=== PATIENT | female | born 1955 | race Caucasian/White ===

== ENCOUNTER 2018-12-27 18:33 | Inpatient (IN) | payer MEDICARE, SELFPAY ==
[2018-12-27] VITALS (16 sets, daily range): BP systolic 140–190; BP diastolic 87–122; PULSE 87–122; RESP 16–26; TEMP 36.4–36.8; O2SAT 95–98; BMI 44.6; BMI 44.2; BMI 44.7
--- NOTE | 2018-12-27 19:06 | EKG12_ITS ---
Test Reason : REPEAT Blood Pressure : / mmHG Vent. Rate : 093 BPM Atrial Rate : 093 BPM P-R Int : 208 ms QRS Dur : 084 ms QT Int : 358 ms P-R-T Axes : 065 060 022 degrees QTc Int : 445 ms Normal sinus rhythm Nonspecific ST and T wave abnormality Abnormal ECG Confirmed by MICAH DAVIS, MARIAN ([id number]), editor in chief ARNOLD MILNER ([id number]) on 12/29/2018 1:32:33 PM Referred By: TL Confirmed By:MARIAN OBRIEN MD
--- NOTE | 2018-12-27 19:08 | ED.VISSUMM ---
- ER Visit Summary Date of Service: 12/27/18 Chief Complaint: Chest pain History of Present Illness: The patient is a 63 F chest heaviness 1.5 hours prior to arrival, [facility]. Some tingling left hand. Dyspnea. No nausea or diaphoresis. On and off palpitations throughout the day. No lightheaded symptoms. No cardiac history. No history of dysrhythmias. Stress test at least 2-3 years ago. History of hypertension, diabetes, hypercholesterolemia. Denies family history of MIs at a young age. Denies tobacco history. No history of cardiac cath. No aspirin taken. Physical Examination: General: Alert and oriented ?3, no acute distress HEENT: Normocephalic, atraumatic. Moist mucosa membranes Neck: supple, nontender. Cardiovascular: Regular tachycardic rate and rhythm, no murmurs Respiratory: Normal breath sounds, symmetric, no distress Abdomen: Soft, nontender, nondistended Extremities: Nontender, no edema, pulses intact ?4 Neuro: no focal neurological deficits. Test Results: EKG: Concerns for a flutter 2-1 versus first-degree AV block sinus tachycardia, rate of 130, T wave inversion in inferior leads. No ST changes. Old EKG August 2009, notes first-degree AV block, sinus rhythm, there were no T wave changes at that time. Repeat EKG sinus first-degree AV block rate of 93, T wave inversion in inferior leads, no ST changes. Hemoglobin 14, creatinine 1.01. INR 1 PTT 24. Troponins 0.20. Emergency Department Course and Treatment: Patient initial EKG concerns for 2-1 A. fib versus first-degree AV block at a rate of 130 there is new T wave inversion in inferior leads. Initially given Lopressor to evaluate heart rate, recheck heart rates in the 80s however repeat EKG notes first-degree AV block. Cardiac workup did no bump in troponin 0.2. Reevaluation after aspirin her heart rate improved however chest heaviness continued she is given nitro series. Reevaluation reported that symptoms was improving however returned. Nitro drip was started. Chest x-ray negative. Discussed with coffee maker Dr. Díaz updated patient presentation and findings and concerns. Requested 180 Brilinta loading dose along with heparin drip. She would need to be on Brilinta 90 mg twice daily. Should be kept n.p.o. She will be monitored for any worsening symptoms for potentially a more urgent cath versus being cath in the morning. I discussed with hospitalist Dr. Bee, updated on plan of care. She will be admitted to PCU. Blood pressure stable. Treatment Plan: [] Disposition: Admission Impression: 1. Angina 2. Chest pains concerns for ACS This note was generated with [employer] dictation software. It may contain incorrect words, spelling, and punctuation that were not noted in review of the chart prior to signing ED Disposition - Plan for ED Patient: Disposition: Acute Care Hospital [facility] Diagnosis: Angina , Chest pain Referrals: Nena Calvillo MD [Primary Care Provider] -
[2018-12-27] MEDS: Aspirin 81 MG TAB.CHEW 324 MG PO (19:14)
[2018-12-27] MEDS: Metoprolol Tartrate 5 MG/5 ML Vial IV ×3 (19:15→19:35)
[2018-12-27 19:19] LABS: Absolute Lymphocyte Count 2.13 X10^3/ul (0.83-4.51); Absolute Neutrophil Count 4.3 X10^3/uL (2.0-7.7); Basophil# 0.03 X10^3/uL; Basophil% 0.4 % (0-1); Eosinophil# 0.15 X10^3/uL; Eosinophils% 2.1 % (0-5); Hematocrit 41.6 % (37-47); Lymphocyte # 2.13 X10^3/ul (4.0); Lymphocyte % 29.9 % (19-41); Mean Corp Hgb Conc 33.7 g/gl (32-36); Mean Corpuscular Hgb 29.5 pg (27.0-32.0); Mean Corpuscular Volume 87.6 fL (81-99); Mean Platelet Vol. 10.5 fl (6.2-12.0); Neutrophil # 4.31 X10^3/uL (2.7-7.7); Neutrophil % 60.5 % (47-70); Platelet Count 197 K/mm3 (150-450); RBC Distribution Width CV 14.1 % (11.6-14.6); RBC Distribution Width SD 44.8 fl (35.1-43.9); Red Blood Count 4.75 M/mm3 (4.2-5.4); White Blood Count 7.1 K/mm3 (4.4-11.0)
[2018-12-27 19:22] LABS: POSITIVE COUNT NO; POSITIVE DIFFERENTIAL NO; POSITIVE MORPHOLOGY NO
[2018-12-27 19:27] LABS: International Normalized Ratio 1.1; Prothrombin Time (Protime)PT. 13.6 SECONDS (11.7-14.9)
--- NOTE | 2018-12-27 19:27 | RAD_ITS ---
STUDY: X-RAY CHEST REASON FOR EXAM: Female, 63 years old. Chest pain with history of hypertension TECHNIQUE: Single AP portable view of the chest. COMPARISON: None. FINDINGS: The lungs are clear and expanded. There is no demonstrated pleural abnormality. There is mild cardiac enlargement. Normal mediastinum and caridad. Normal visualized pulmonary arteries. Normal visualized aortic arch and descending thoracic aorta. Normal visualized thoracic spine. Normal visualized ribs, clavicles, and shoulders. There is no demonstrated abnormality of the visualized soft tissue structures of the upper abdomen. RAD/Chest 1 View (Portable) IMPRESSION: Mild cardiomegaly. Remainder is within normal limits. Electronically Signed: Tino Deng DO at 19:49 EDT Tel , Service support ,
[2018-12-27 19:28] LABS: Partial Thromboplast Time 24.1 Seconds (24.1-36.2)
[2018-12-27 19:45] LABS: Anion Gap 6 (5-15); BUN 25 mg/dL (7-18); BUN/Creat Ratio 24.8 RATIO (10-20); Calcium,Total 8.9 mg/dL (8.5-10.1); Chloride 105 mmol/L (98-107); Creatinine, Serum 1.01 mg/dL (0.55-1.02); EST Glomerular Filtration Rate 59 mL/min (>60); Est Glom Filt Rate - Afr Amer 71 mL/min (>60); Estimated Creatinine Clearance 47.16 ml/min; Glucose 223 mg/dL (74-106); Potassium 4.5 mmol/L (3.5-5.1); Sodium Level 137 mmol/L (136-145)
--- NOTE | 2018-12-27 19:51 | EKG12_ITS ---
Test Reason : CP Blood Pressure : / mmHG Vent. Rate : 130 BPM Atrial Rate : 130 BPM P-R Int : 206 ms QRS Dur : 080 ms QT Int : 248 ms P-R-T Axes : 085 072 181 degrees QTc Int : [address] & T wave abnormality, consider inferior ischemia Abnormal ECG Confirmed by MICAH DAVIS, MARIAN ([id number]), editor managing newspaper ARNOLD MILNER ([id number]) on 12/29/2018 1:32:54 PM Referred By: MARCO Confirmed By:MARIAN OBRIEN MD
[2018-12-27] MEDS: Nitroglycerin Infusion 250 ML 24 MG CONT INF (20:50)
[2018-12-27] MEDS: TICAGRELOR 90 MG TABLET 180 MG PO (21:18)
[2018-12-27] MEDS: HEPARIN/D5w 25,000 UNITS 25,000 UNITS/250 ML IV.SOLN. 10 UNITS IV (21:19)
[2018-12-27] MEDS: Heparin Injection (Vial) 5,000 UNIT/ML VIAL 4000 UNIT IV (21:29)
--- NOTE | 2018-12-27 21:38 | PCM.HP.STD ---
Problem List (1) Tachycardia Status: Chronic (2) Depression Status: Chronic (3) Hyperlipidemia Status: Chronic (4) Type 2 diabetes mellitus Status: Chronic (5) Hypertension Status: Chronic (6) Chest pain Status: Acute History of Present Illness Date of Admission: 12/27/18 Chief Complaint: Shortness of breath, chest pain. The patient is a 63 year old F with past medical history as mentioned above presented to the emergency room because of shortness of breath and chest pain. Her symptoms started yesterday with progressively increasing shortness of breath, initially was with exertion and progressed to become even at rest, aggravated by minimal activity, not relieved with rest and today, started having chest pain. Around 2 PM today, she was sitting and she started having chest pain, retrosternal chest pain, 8 out of 10 in severity, initially was pressure-like pain and then became sharp pain, not radiating, associated with shortness of breath and palpitation and without aggravating or relieving factors. At this time, she is still complaining of chest pain slightly improved. In the emergency department, initially she was tachycardic and revealed probable first-degree AV block. She was given 1 dose of IV Lopressor and her heart rate slowed down around 80s. Her blood pressure was elevated, afebrile, pulse ox was normal on room air. Her initial EKG revealed tachycardia, nonspecific T wave changes on lateral chest leads. Repeat EKG revealed normal sinus rhythm, no acute ST elevation. Chest x-ray revealed cardiomegaly, no acute changes. Routine blood work was unremarkable. Troponin was 0.200. She was started on IV heparin drip and IV nitroglycerin drip, was given loading dose of Brilinta according to cardiology recommendations. She is being admitted for chest pain, probable angina pectoris for evaluation. Past Medical History Past Medical History (Chronic Problems): Chronic Problems Tachycardia (Chronic) Depression (Chronic) Hyperlipidemia (Chronic) Type 2 diabetes mellitus (Chronic) Hypertension (Chronic) Allergies Sulfa (Sulfonamide Antibiotics) Allergy (Verified 12/27/18 18:36) Hives Home Medications: Ambulatory Orders Medication Instructions Recorded Aspirin [Aspir 81] 81 mg PO DAILY 12/27/18 Atenolol 50 mg PO DAILY 12/27/18 Buspirone HCl 10 mg PO BID 12/27/18 Fluoxetine HCl 40 mg PO DAILY 12/27/18 Glimepiride [Amaryl] 2 mg PO BID 12/27/18 Hydrochlorothiazide [Hctz] 25 mg PO DAILY 12/27/18 Insulin Glargine,Hum.rec.anlog 18 - 23 unit SC QHS 12/27/18 [Lantus] Lisinopril 5 mg PO DAILY 12/27/18 Metformin HCl 500 mg PO TID 12/27/18 Naproxen [Naprosyn] 500 mg PO BID 12/27/18 Pravastatin [Pravachol] 40 mg PO QHS 12/27/18 Propranolol HCl 20 - 40 mg PO TID PRN PRN 12/27/18 traZODone [Desyrel] 100 mg PO QHS 12/27/18 Surgical History: cholecystectomy Psychiatric History: Depression 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 Denies: Anorexia, Chills, Fever Eyes: Denies: Blurred vision, Double vision, Drainage HEENT: Denies: Difficulty Hearing, Ear Pain, Eye Pain, Nasal Congestion, Sore Throat Cardiovascular: Reports: Chest Pain, Chest Pressure, Palpitations. Denies: Heaviness, Light Headedness, Syncope Respiratory: Reports: Shortness of Breath, Shortness of breath at rest, Shortness of breath upon exertion. Denies: Cough, Pleuritic Pain, Sputum production, Wheezing Gastrointestinal: Reports: Nausea. Denies: Abdominal Pain, Constipation, Diarrhea, Vomiting Genitourinary: Denies: Dysuria, Frequency, Hematuria Musculoskeletal: Denies: Arm Pain, Back Pain Skin: Denies: Dryness, Rash Neurological: Denies: Balance problems, Double vision, Change in Speech, Slurred speech, Confusion, Headaches, Incoordination, Numbness Psychiatric: Reports: Depression. Denies: Anxiety VTE Information - Inpt Only VTE Present on Admission: No VTE Mechan Device Prophylaxis: None VTE Pharm Prophylaxis ordered?: No Patient Problems: Active and Suspected Problems Chest pain (Acute) - Physical Exam General: Alert, Oriented x3, Cooperative, No apparent distress HEENT: Atraumatic, PERRLA, EOMI, Normocephalic Oral: Moist Mucosa, No Gingival or Mucosal Lesions/ Ulcerations Neck: Supple, No JVD, Negative Carotid Bruits, Trachea Midline, Thyroid Normal Size and Texture Lungs: Clear to auscultation, No rhonchi, No wheeze, No rales, Diminished Cardiovascular: Regular rate, Regular Rhythm, Normal S1, Normal S2, PMI Normal, Murmur - Systolic murmur., Tachycardic Abdomen: Bowel Sounds Present, Soft, Non Tender, Non-Distended, No Hepato-splenomegaly, Obese Extremities: No clubbing, No cyanosis, No edema Skin: No rashes, No breakdown Lymphatic: No Cervical, Supraclavicular, or Inguinal Adenopathy Neurological: Cranial nerves II-XII grossly intact, Motor Exam 5/5 strength throughout Psych/Mental Status: Normal Affect, Appropriate, Alert and oriented to time, place, person, mood and affect Vital Signs Temp Pulse Resp BP Pulse Ox 97.5 F L 108 H 16 171/122 H 98 12/27/18 18:33 12/27/18 21:25 12/27/18 21:25 12/27/18 21:25 12/27/18 21:25 Oxygen Flow Rate (L/min) 2 Oxygen Delivery Method Nasal Cannula Weight: 252 lb 3.341 oz Body Mass Index (BMI) 44.6 Laboratory Tests Past 24 Hrs 12/27/18 12/27/18 12/27/18 19:10 19:10 19:10 WBC 7.1 RBC 4.75 Hgb 14.0 Hct 41.6 MCV 87.6 MCH 29.5 MCHC 33.7 RDW 14.1 RDW Differential 44.8 H Plt Count 197 MPV 10.5 Immature Gran % (Auto) 0.100 Neut % (Auto) 60.5 Lymph % (Auto) 29.9 [place] % (Auto) 7.0 Eos % (Auto) 2.1 Baso % (Auto) 0.4 Absolute Neuts (auto) 4.3 Absolute Lymphs (auto) 2.13 Total Counted Not Reportable PT 13.6 INR 1.1 APTT 24.1 Sodium 137 Potassium 4.5 Chloride 105 Carbon Dioxide 26.0 Anion Gap 6 BUN 25 H Creatinine 1.01 Estim Creat Clear Calc 47.16 Est GFR (MDRD) Af Amer 71 Est GFR (MDRD) Non-Af 59 L BUN/Creatinine Ratio 24.8 H Glucose 223 H Calcium 8.9 Troponin I 0.200 H Clinical Impression(s) from Imaging Studies Chest X-Ray 12/27/18 19:27 IMPRESSION: Mild cardiomegaly. Remainder is within normal limits. Electronically Signed: Tino Deng at 19:49 EDT Tel , Service support , Assessment/Plan All Active Problems Chest pain (Acute) This is a 63 years old female patient presented to the emergency room because of shortness of breath and chest pain, found to have abnormal cardiac enzymes and she is being admitted for evaluation and treatment. #1 chest pain/probable unstable angina/abnormal cardiac enzymes: EKG reviewed. Initial EKG revealed nonspecific T wave changes on lateral chest leads, revealed questionable first-degree AV block. She was tachycardic, given 1 dose of IV Lopressor. Repeat EKG revealed sinus rhythm and no acute ischemic changes. First troponin is 0.200. Patient has complained of chest pain, started on IV heparin drip and IV nitroglycerin drip. She received loading dose of Brilinta in the ED as well. Blood pressure slightly elevated. Plan: Admit to PCU, cardiac monitoring, serial cardiac enzymes, repeat EKG tomorrow morning, 2D echocardiogram, continue IV heparin drip and IV medication drip, cardiology consult, continue aspirin, start Brilinta twice daily tomorrow, continue atenolol and lisinopril as well as statins, repeat CBC and BMP tomorrow morning, IV fluids, IV morphine as needed, IV antiemetics, PT OT evaluation and treatment. #2 questionable cardiac arrhythmia: Patient mentioned that she had a history of tachycardia and palpitation, has been on propanolol. EKG reviewed as above. She mentioned that her PCP recommended stress test as outpatient which should be done in January. Plan: 2D echocardiogram, repeat EKG tomorrow morning, TSH. #3 type 2 diabetes mellitus: ADA diet, Accu-Cheks, insulin sliding scale, continue home doses of Lantus, continue glimepiride, hold metformin. #4 hypertension: Blood pressure is elevated, continue IV heparin drip, continue atenolol and lisinopril, hold HCTZ. #5 depression: Continue trazodone. #6 hyperlipidemia: Continue statins. #7 DVT prophylaxis: She is on IV heparin drip. This note was generated with [employer] dictation software. It may contain incorrect words, spelling, and punctuation that were not noted in checking the note before signing. Code Visit Inpatient E&M: 74790 Init Hosp L3
--- NOTE | 2018-12-27 21:42 | HP.PCM_ITS ---
Problem List (1) Tachycardia Status: Chronic (2) Depression Status: Chronic (3) Hyperlipidemia Status: Chronic (4) Type 2 diabetes mellitus Status: Chronic (5) Hypertension Status: Chronic (6) Chest pain Status: Acute History of Present Illness Date of Admission: 12/27/18 Chief Complaint: Shortness of breath, chest pain. The patient is a 63 year old F with past medical history as mentioned above presented to the emergency room because of shortness of breath and chest pain. Her symptoms started yesterday with progressively increasing shortness of breath, initially was with exertion and progressed to become even at rest, aggravated by minimal activity, not relieved with rest and today, started having chest pain. Around 2 PM today, she was sitting and she started having chest pain, retrosternal chest pain, 8 out of 10 in severity, initially was pressure- like pain and then became sharp pain, not radiating, associated with shortness of breath and palpitation and without aggravating or relieving factors. At this time, she is still complaining of chest pain slightly improved. In the emergency department, initially she was tachycardic and revealed probable first- degree AV block. She was given 1 dose of IV Lopressor and her heart rate slowed down around 80s. Her blood pressure was elevated, afebrile, pulse ox was normal on room air. Her initial EKG revealed tachycardia, nonspecific T wave changes on lateral chest leads. Repeat EKG revealed normal sinus rhythm, no acute ST elevation. Chest x-ray revealed cardiomegaly, no acute changes. Routine blood work was unremarkable. Troponin was 0.200. She was started on IV heparin drip and IV nitroglycerin drip, was given loading dose of Brilinta according to cardiology recommendations. She is being admitted for chest pain, probable angina pectoris for evaluation. Past Medical History Past Medical History (Chronic Problems): Chronic Problems Tachycardia (Chronic) Depression (Chronic) Hyperlipidemia (Chronic) Type 2 diabetes mellitus (Chronic) Hypertension (Chronic) Allergies Sulfa (Sulfonamide Antibiotics) Allergy (Verified 12/27/18 18:36) Hives Home Medications: Ambulatory Orders Medication Instructions Recorded Aspirin [Aspir 81] 81 mg PO DAILY 12/27/18 Atenolol 50 mg PO DAILY 12/27/18 Buspirone HCl 10 mg PO BID 12/27/18 Fluoxetine HCl 40 mg PO DAILY 12/27/18 Glimepiride [Amaryl] 2 mg PO BID 12/27/18 Hydrochlorothiazide [Hctz] 25 mg PO DAILY 12/27/18 Insulin Glargine,Hum.rec.anlog 18 - 23 unit SC QHS 12/27/18 [Lantus] Lisinopril 5 mg PO DAILY 12/27/18 Metformin HCl 500 mg PO TID 12/27/18 Naproxen [Naprosyn] 500 mg PO BID 12/27/18 Pravastatin [Pravachol] 40 mg PO QHS 12/27/18 Propranolol HCl 20 - 40 mg PO TID PRN PRN 12/27/18 traZODone [Desyrel] 100 mg PO QHS 12/27/18 Surgical History: cholecystectomy Psychiatric History: Depression 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 Denies: Anorexia, Chills, Fever Eyes: Denies: Blurred vision, Double vision, Drainage HEENT: Denies: Difficulty Hearing, Ear Pain, Eye Pain, Nasal Congestion, Sore Throat Cardiovascular: Reports: Chest Pain, Chest Pressure, Palpitations. Denies: Heaviness, Light Headedness, Syncope Respiratory: Reports: Shortness of Breath, Shortness of breath at rest, Shortness of breath upon exertion. Denies: Cough, Pleuritic Pain, Sputum production, Wheezing Gastrointestinal: Reports: Nausea. Denies: Abdominal Pain, Constipation, Diarrhea, Vomiting Genitourinary: Denies: Dysuria, Frequency, Hematuria Musculoskeletal: Denies: Arm Pain, Back Pain Skin: Denies: Dryness, Rash Neurological: Denies: Balance problems, Double vision, Change in Speech, Slurred speech, Confusion, Headaches, Incoordination, Numbness Psychiatric: Reports: Depression. Denies: Anxiety VTE Information - Inpt Only VTE Present on Admission: No VTE Mechan Device Prophylaxis: None VTE Pharm Prophylaxis ordered?: No Patient Problems: Active and Suspected Problems Chest pain (Acute) - Physical Exam General: Alert, Oriented x3, Cooperative, No apparent distress HEENT: Atraumatic, PERRLA, EOMI, Normocephalic Oral: Moist Mucosa, No Gingival or Mucosal Lesions/ Ulcerations Neck: Supple, No JVD, Negative Carotid Bruits, Trachea Midline, Thyroid Normal Size and Texture Lungs: Clear to auscultation, No rhonchi, No wheeze, No rales, Diminished Cardiovascular: Regular rate, Regular Rhythm, Normal S1, Normal S2, PMI Normal, Murmur - Systolic murmur., Tachycardic Abdomen: Bowel Sounds Present, Soft, Non Tender, Non-Distended, No Hepato- splenomegaly, Obese Extremities: No clubbing, No cyanosis, No edema Skin: No rashes, No breakdown Lymphatic: No Cervical, Supraclavicular, or Inguinal Adenopathy Neurological: Cranial nerves II-XII grossly intact, Motor Exam 5/5 strength throughout Psych/Mental Status: Normal Affect, Appropriate, Alert and oriented to time, place, person, mood and affect Vital Signs Temp Pulse Resp BP Pulse Ox 97.5 F L 108 H 16 171/122 H 98 12/27/18 18:33 12/27/18 21:25 12/27/18 21:25 12/27/18 21:25 12/27/18 21:25 Oxygen Flow Rate (L/min) 2 Oxygen Delivery Method Nasal Cannula Weight: 252 lb 3.341 oz Body Mass Index (BMI) 44.6 Laboratory Tests Past 24 Hrs 12/27/18 12/27/18 12/27/18 19:10 19:10 19:10 WBC 7.1 RBC 4.75 Hgb 14.0 Hct 41.6 MCV 87.6 MCH 29.5 MCHC 33.7 RDW 14.1 RDW Differential 44.8 H Plt Count 197 MPV 10.5 Immature Gran % (Auto) 0.100 Neut % (Auto) 60.5 Lymph % (Auto) 29.9 [place] % (Auto) 7.0 Eos % (Auto) 2.1 Baso % (Auto) 0.4 Absolute Neuts (auto) 4.3 Absolute Lymphs (auto) 2.13 Total Counted Not Reportable PT 13.6 INR 1.1 APTT 24.1 Sodium 137 Potassium 4.5 Chloride 105 Carbon Dioxide 26.0 Anion Gap 6 BUN 25 H Creatinine 1.01 Estim Creat Clear Calc 47.16 Est GFR (MDRD) Af Amer 71 Est GFR (MDRD) Non-Af 59 L BUN/Creatinine Ratio 24.8 H Glucose 223 H Calcium 8.9 Troponin I 0.200 H Clinical Impression(s) from Imaging Studies Chest X-Ray 12/27/18 19:27 IMPRESSION: Mild cardiomegaly. Remainder is within normal limits. Electronically Signed: Tino Deng at 19:49 EDT Tel , Service support , Assessment/Plan All Active Problems Chest pain (Acute) This is a 63 years old female patient presented to the emergency room because of shortness of breath and chest pain, found to have abnormal cardiac enzymes and she is being admitted for evaluation and treatment. #1 chest pain/probable unstable angina/abnormal cardiac enzymes: EKG reviewed. Initial EKG revealed nonspecific T wave changes on lateral chest leads, revealed questionable first-degree AV block. She was tachycardic, given 1 dose of IV Lopressor. Repeat EKG revealed sinus rhythm and no acute ischemic changes. First troponin is 0.200. Patient has complained of chest pain, started on IV heparin drip and IV nitroglycerin drip. She received loading dose of Brilinta in the ED as well. Blood pressure slightly elevated. Plan: Admit to PCU, cardiac monitoring, serial cardiac enzymes, repeat EKG tomorrow morning, 2D echocardiogram, continue IV heparin drip and IV medication drip, cardiology consult, continue aspirin, start Brilinta twice daily tomorrow, continue atenolol and lisinopril as well as statins, repeat CBC and BMP tomorrow morning, IV fluids, IV morphine as needed, IV antiemetics, PT OT evaluation and treatment. #2 questionable cardiac arrhythmia: Patient mentioned that she had a history of tachycardia and palpitation, has been on propanolol. EKG reviewed as above. She mentioned that her PCP recommended stress test as outpatient which should be done in January. Plan: 2D echocardiogram, repeat EKG tomorrow morning, TSH. #3 type 2 diabetes mellitus: ADA diet, Accu-Cheks, insulin sliding scale, continue home doses of Lantus, continue glimepiride, hold metformin. #4 hypertension: Blood pressure is elevated, continue IV heparin drip, continue atenolol and lisinopril, hold HCTZ. #5 depression: Continue trazodone. #6 hyperlipidemia: Continue statins. #7 DVT prophylaxis: She is on IV heparin drip. This note was generated with [employer] dictation software. It may contain incorrect words, spelling, and punctuation that were not noted in checking the note before signing. Code Visit Inpatient E&M: 96526 Init Hosp L3
[2018-12-27] MEDS: Morphine 4 MG/ML Syringe IV (22:01)
--- NOTE | 2018-12-27 22:30 | NURSING ---
Pt arrives to PCU, c/o 7/ chest pain. This RN informed by ED nurse JUANCARLOS Joel that pt is on 80mcg/hr of Nitro. JUANCARLOS Solis at bedside aware and calling Dr. Bee. Pt informed of Nitro drip maximum limit on unit and pt will need to be transferred to ICU. Pt verbalizing understanding.
--- NOTE | 2018-12-27 22:38 | EKG12_ITS ---
Test Reason : POST PCI Blood Pressure : / mmHG Vent. Rate : 091 BPM Atrial Rate : 091 BPM P-R Int : 212 ms QRS Dur : 088 ms QT Int : 410 ms P-R-T Axes : 058 073 023 degrees QTc Int : 504 ms Sinus rhythm with 1st degree A-V block Anterior infarct , age undetermined Abnormal ECG No previous ECGs available Confirmed by CRISTOBAL FAROOQ ([id number]), editorial director ARNOLD MILNER ([id number]) on 12/30/2018 11:00:06 AM Referred By: MICAH Confirmed By:CRISTOBAL FAROOQ
--- NOTE | 2018-12-27 22:59 | ECHOCS_ITS ---
Reason For Study: S/P RI Procedure This was a 2D Doppler, Color Flow transthoracic echocardiogram. The study was technically difficult. Contrast injection was performed. Exam performed portable in ICU/CCU. Left Ventricle Normal LV size. Segmental dysfunction with preserved ejection fraction (see wall motion). The estimated ejection fraction is 65 %. Diastolic function is indeterminate. Mid-anteroseptal : Mildly hypokinetic. Anterior [place] : Mildly hypokinetic. Right Ventricle Normal RV size. Normal systolic function. Atria The left atrium is mildly enlarged. Normal right atrium. No doppler evidence for ASD. Mitral Valve There is no mitral annular calcification. Normal mitral valve. Trivial mitral valve insufficiency. Tricuspid Valve Normal tricuspid valve. Trivial tricuspid valve insufficiency. Unable to estimate RV systolic pressure/pulmonary artery pressure due to technically difficult study. Aortic Valve Trisinus/trileaflet aortic valve. Mild focal aortic valve calcification. Pulmonic Valve The pulmonic valve is not well visualized. Great Vessels Normal sized aortic root. Pericardium/Pleural No pericardial effusion. Medication Diluted definity 3.0ml given slow IV push to enhance endocardial definition. MMode/2D Measurements & Calculations LVIDd: 4.3 cm IVSd: 1.3 cm Ao root diam: 2.8 cm LVIDs: 3.2 cm LVPWd: 1.1 cm RVDd: 3.7 cm FS: 25.4 % LAV(MOD-bp): 87.1 ml LA A4 area: 27.8 cm2 LA dimension(2D): 3.8 cm LAV(MOD-bp) Indexed: 40.9 ml/m2 LAV(MOD-sp2): 69.8 ml LAV(MOD-sp4): 99.6 ml RA A4 area: 25.6 cm2 Doppler Measurements & Calculations MV E max alexander: 59.0 cm/sec Lat Peak E' Alexander: 8.9 cm/sec Med Peak E' Alexander: 10.2 cm/sec MV A max alexander: 77.8 cm/sec E/E' lat: 6.6 E/E' med: 5.8 MV E/A: 0.76 Ao V2 max: 159.1 cm/sec LV V1 max: 82.3 cm/sec PA V2 max: 73.4 cm/sec Ao max P.1 mmHg LV V1 max P.7 mmHg Interpretation Summary The study was technically difficult. Contrast injection was performed. Segmental dysfunction with preserved ejection fraction (see wall motion). The estimated ejection fraction is 65 %. Trivial mitral valve insufficiency. Trivial tricuspid valve insufficiency. Mild focal aortic valve calcification. Unable to estimate RV systolic pressure/pulmonary artery pressure due to technically difficult study. Diastolic function is indeterminate. Ordering Physician: Genie Bee Referring Physician: Nena Calvillo Performed By: Sivan Chavis RDCS, RVT
[2018-12-27] MEDS: busPIRone 5 MG Tablet 10 MG PO (23:45)
[2018-12-27] MEDS: Glimepiride 2 MG Tablet PO (23:45)
[2018-12-27] MEDS: 0.9% Normal Saline 1,000 ML 75 ML IV (23:45)
[2018-12-27] MEDS: Pravastatin 40 MG Tablet PO (23:46)
[2018-12-27] MEDS: traZODone 100 MG Tablet PO (23:46)
[2018-12-27] MEDS: Insulin Lispro 100 UNIT/ML INSULN.PEN SC (23:56)
[2018-12-28] VITALS (34 sets, daily range): BP systolic 84–150; BP diastolic 46–112; PULSE 71–102; RESP 15–29; TEMP 36.4–37.2; O2SAT 90–98; BMI 44.2
[2018-12-28 00:26] LABS: Bedside Glucose 251 mg/dL (70-110)
[2018-12-28] MEDS: Morphine 2 MG/ML Syringe IV (00:46)
[2018-12-28] MEDS: 0.9% NaCl Peripheral Flush Adult/Peds IV ×3 (00:48→17:47)
[2018-12-28 00:52] LABS: Thyroid Stim Hormone (TSH) 2.45 uIU/mL (0.358-3.74)
--- NOTE | 2018-12-28 01:39 | PCM.CONS.C ---
Problem List (1) Unstable angina Status: Acute (2) NSTEMI (non-ST elevated myocardial infarction) Status: Acute (3) Hyperlipidemia Status: Chronic (4) Hypertension Status: Chronic (5) Type 2 diabetes mellitus Status: Chronic Reason for Consult Date of Consultation: 12/28/18 History of Present Illness: The patient is a 63 year old white female with a past medical history which is included hyperlipidemia, hypertension, and diabetes mellitus who presents for concerns of unstable angina pectoris and findings compatible with a non-ST segment elevation CA. The patient states that she has had a long-standing history of palpitations. She has been on beta-blockers for her palpitations. More recently she has noted progressive shortness of breath and dyspnea especially with exertion. Yesterday she noted not only palpitations and shortness of breath and dyspnea with exertion chest discomfort/chest pressure. She noted that she had a difficult time walking into the pharmacy to purchase aspirin. Thus she brought herself directly to the hospital for further evaluation and care. There she was evaluated by the emergency department staff. She was thought to have symptoms compatible with unstable angina pectoris. A troponin I level was performed and found to be 0.2. An ECG was performed that demonstrated sinus tachycardia with T wave abnormality concerning for myocardial ischemia in the inferior distribution. She was treated with a combination of medicines including aspirin, nitroglycerin sublingual series which initially improved her symptoms, beta-blockers, and then based upon concerns of recurrent chest discomfort was placed on IV nitroglycerin. She eventually received additional medical therapy with antiplatelet therapy with Brilinta as well as anticoagulant therapy with IV heparin. He was also reported as receiving IV morphine in the emergency department prior to her placement in the PCU. She was admitted by the hospitalist after the PCU. However based upon ongoing symptoms and need for increasing IV nitroglycerin she was subsequently transferred to the ICU for further evaluation. In the ICU she continued to have ongoing symptoms despite the aforementioned medical therapy. Additional cardiac enzymes were performed and her repeat troponin I level was 0.16. However a repeat ECG had been performed that had demonstrated sinus rhythm with nonspecific ST and T wave abnormality concerning for myocardial ischemia in the inferior distribution but also nonspecific ST and T wave abnormality in the anterolateral distribution. Another ECG was performed which demonstrated continued evidence of nonspecific ST and T wave abnormality not only in the inferior distribution but more so more prominent in the anterior lateral distribution. Another ECG was performed that demonstrated similar type findings. Raising concerns of myocardial ischemia in the inferior distribution as well as the anterior to anterior lateral distribution. Her nonspecific ST segment changes that were noted on repeat electrocardiograms inferiorly appeared to demonstrate approximately 0.[address] segment elevation inferiorly-not appearing to meet definitive criteria for an ST segment elevation CA. She was also subsequently noted to have compared to her original ECG loss of R wave in the precordial lead V3. The patient states that she had an exercise tolerance test performed some years ago which reportedly was negative as she never went to have further cardiac diagnostic studies performed. At the present time she continues with her chest discomfort which she feels as if there is a heavy pressure sensation or weight like sensation on her chest. She states she has had her shortness of breath and dyspnea. She has had nausea but no emesis. She was also apparently reported as appearing somewhat clammy or diaphoretic. There is been no loss of consciousness. She denies any history of orthopnea or PND. She has not had ongoing peripheral pitting edema of the lower extremities. She states she follows with her PCP every 3 months to have her lipids checked and her diabetes mellitus checked. [] Past Medical History Allergies/Adverse Reactions: Allergies Sulfa (Sulfonamide Antibiotics) Allergy (Verified 12/27/18 18:36) Hives Home Medications: Ambulatory Orders Medication Instructions Recorded Aspirin [Aspir 81] 81 mg PO DAILY 12/27/18 Atenolol 50 mg PO DAILY 12/27/18 Buspirone HCl 10 mg PO BID 12/27/18 Fluoxetine HCl 40 mg PO DAILY 12/27/18 Glimepiride [Amaryl] 2 mg PO BID 12/27/18 Hydrochlorothiazide [Hctz] 25 mg PO DAILY 12/27/18 Insulin Glargine,Hum.rec.anlog 18 - 23 unit SC QHS 12/27/18 [Lantus] Lisinopril 5 mg PO DAILY 12/27/18 Metformin HCl 500 mg PO TID 12/27/18 Naproxen [Naprosyn] 500 mg PO BID 12/27/18 Pravastatin [Pravachol] 40 mg PO QHS 12/27/18 Propranolol HCl 20 - 40 mg PO TID PRN PRN 12/27/18 traZODone [Desyrel] 100 mg PO QHS 12/27/18 Past Medical History (Chronic Problems): Chronic Problems Tachycardia (Chronic) Depression (Chronic) Hyperlipidemia (Chronic) Type 2 diabetes mellitus (Chronic) Hypertension (Chronic) Surgical History: cholecystectomy Psychiatric History: Depression [employer]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 Denies: Orthopnea, PND, Peripheral Edema, Lightheadedness, Dizziness, Near Syncope, Syncope Respiratory: Reports: Shortness of Breath. Denies: Cough, Sputum Production, Hemoptysis Gastrointestinal: Reports: Nausea. Denies: Hematemesis, Hematochezia, Melena Genitourinary: Denies: Dysuria, Hematuria Skin: Denies: Rash Subjectve: This is a 63-year-old white female who appears to be uncomfortable hearing at this time. Objective: Vital Signs Temp Pulse Resp BP Pulse Ox 98.3 F 102 H 19 H 118/63 96 12/27/18 23:00 12/28/18 00:15 12/28/18 00:15 12/28/18 00:45 12/28/18 00:15 Oxygen Flow Rate (L/min) 2 Oxygen Delivery Method Nasal Cannula Weight: 249 lb 12.54 oz Body Mass Index (BMI) 44.2 Intake and Output for Last 24 Hours 12/26/18 12/27/18 12/28/18 23:59 23:59 23:59 Intake Total 365 / 365 Balance 365 / 365 General: Awake, Alert, Oriented x 3, Cooperative, Obese HEENT: Atraumatic, Normocephalic, PERRL, EOMI, Sclera Non Icteric Oral: Moist Mucosa Neck: Supple, Good ROM, No JVD Lungs: Clear to auscultation Cardiovascular: Regular Rhythm, Normal S1, Normal S2 Vascular: No Carotid Bruits Abdomen: Bowel Sounds Present, Soft, Non Tender Extremities: No Cyanosis, No Clubbing, No edema Neurological: No Focal Motor or Sensory Deficit Psych/Mental Status: Appropriate 12/27/18 19:10: WBC 7.1, RBC 4.75, Hgb 14.0, Hct 41.6, MCV 87.6, MCH 29.5, MCHC 33.7, RDW 14.1, RDW Differential 44.8 H, Plt Count 197, MPV 10.5, Immature Gran % (Auto) 0.100, Neut % (Auto) 60.5, Lymph % (Auto) 29.9, [place]wey % (Auto) 7.0, Eos % (Auto) 2.1, Baso % (Auto) 0.4, Absolute Neuts (auto) 4.3, Total Counted Not Reportable 12/27/18 19:10: PT 13.6, INR 1.1, APTT 24.1 12/27/18 19:10: Sodium 137, Potassium 4.5, Chloride 105, Carbon Dioxide 26.0, Anion Gap 6, BUN 25 H, Creatinine 1.01, Est GFR (MDRD) Af Amer 71, Est GFR (MDRD) Non-Af 59 L, BUN/Creatinine Ratio 24.8 H, Glucose 223 H, Calcium 8.9, Troponin I 0.200 H 12/28/18 00:20: Troponin I 0.161 H Rhythm: Sinus rhythm EKG: As noted above Stress Test: Unavailable for review CXR: Preliminary evaluation: No acute cardiopulmonary disease process appreciated: Please see official report Assessment/Plan 1. Unstable angina pectoris/non-ST segment elevation CA The patient presents with symptoms concerning for unstable angina pectoris and subsequent findings with respect to indeterminate troponin I levels and ECG changes concerning for a non-ST segment elevation CA. At the present time the patient continues with symptoms. This is despite multiple medications and advancing doses of medications. Based upon the above it was felt the patient should proceed to the diagnostic cardiac catheterization laboratory for further evaluation of her underlying coronary disease status and the need for potential revascularization therapy. The procedure and risks were discussed with her. She was agreeable to this approach. 2. Hyperlipidemia She can have her lipids reassessed. She will need to continue medical therapy with her statins. 3. Hypertension Her blood pressures are being followed. Her medications can be adjusted as needed. 4. Diabetes mellitus She will need to continue under evaluation care by internal medicine. Comment: The above has been discussed and reviewed with the patient. This note was generated with [employer] software. It may contain incorrect words, spelling, and punctuation that were not noted in checking the note before signing.
[2018-12-28 02:18] LABS: AST(SGOT) 159 U/L (15-37); Alanine Aminotransfer ALT/SGPT 209 U/L (13-56); Albumin, Serum 3.2 g/dL (3.2-5.0); Alkaline Phosphatase 126 U/L (45-117); Bilirubin, Direct 0.19 mg/dL (0.00-0.30); Protein, Total 7.2 g/dL (6.4-8.2)
--- NOTE | 2018-12-28 03:57 | EKG12_ITS ---
Test Reason : CP ADMIT Blood Pressure : / mmHG Vent. Rate : 101 BPM Atrial Rate : 101 BPM P-R Int : 214 ms QRS Dur : 084 ms QT Int : 368 ms P-R-T Axes : 066 062 015 degrees QTc Int : 477 ms Sinus tachycardia with 1st degree A-V block Septal infarct , age undetermined T wave abnormality, consider inferior ischemia T wave abnormality, consider anterior ischemia Abnormal ECG No previous ECGs available Confirmed by CRISTOBAL FAROOQ ([id number]), health editor ARNOLD MILNER ([id number]) on 12/30/2018 11:18:51 AM Referred By: DR SANTO Confirmed By:CRISTOBAL FAROOQ
--- NOTE | 2018-12-28 04:07 | NURSING ---
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 Pt received 2 stents to LAD, right radial approach. Will return to ICU soon.
--- NOTE | 2018-12-28 04:08 | CL.I_ITS ---
Patient Name: ELISABET VAUGHAN Study Date: 12/28/2018 Performing: Francie Masterson MD Ht: 62.99 inches 160 cm : 1955 Wt: 249.12 lbs 113 kg Age: 63 Gender: female BSA: 2.12 PROCEDURE(S) PERFORMED [id number] W OR WO PTCA, SINGLE CORONARY ARTERY CLINICAL PROFILE AND CO-MORBIDITIES Indications: Worsening Angina, ACS <= 24 hrs Heart Failure: None Stress/Imaging Stress/Image Study Performed: No Angina Classification Anginal Classification w/in 2 Weeks: CCS IV CAD Presentations: Unstable angina. Non-STEMI. CONCLUSIONS RECOMMENDATIONS ASA Indefinitley Brilinta for at least 12 months Routine post interventional care Follow up with Dr. Díaz DESCRIPTION OF PROCEDURE xb 3.0 Guide catheter was inserted and engaged into the LCA. runthrough Guide wire was advanced t o the diag. Angiogram performed pre balloon dilatation. emerge 3.00x 12 Balloon catheter was advanced across lesion in the lad, proximal. PTCA balloon inflated at 6 atms for 6 secs. PTCA balloon inflate d at 6 atms for 20 secs. runthrough Guide wire was inserted as a mercy wire down lad resolute 3.0 x 3 8 Drug Eluting stent was advanced across the lesion in the LAD, proximal. Angiogram performed pre dominick nt deployment. Angiogram performed post stent deployment. nc emerge 3.0 x 20 Balloon catheter was ins erted post stent. Angiogram performed post balloon dilatation. resolute 2.25 x 26 Drug Eluting stent was advanced across the lesion in the LAD, proximal. nc emerge 2.5 x 20 Balloon catheter was inserted post stent. nc emerge 3.00 x 20 Balloon catheter was inserted post stent. Angiogram performed post b alloon dilatation. The arterial sheath was pulled and a TR Band was applied for hemostasis INTERVENTION INFORMATION LESION SITE: LAD (Proximal) Lesion Complexity: High/C, thrombus present: Yes, culprit lesion: Yes Pre Stenosis: 99 % Pre intervention CHRISS flow: 2 PROCEDURE: Drug Eluting Stent with pre and post dilatation Post Stenosis: 0 % Post intervention CHRISS flow: 3 Lesion Devices: Cordis 6 Fr XB3.0 100cm Guide Catheter Terumo .014 Runthrough Extra Floppy 180cm straight [employer] EMERGE MR 3.00x12 BALLOON [employer] Resolute RX ALEAH 3.0x38 [employer] NC EMERGE MR 3.00x20 BALLOON [employer] Resolute RX ALEAH 2.25x26 [employer] [place] EMERGE MR 2.50x20 BALLOON COMPLICATIONS No Complications PROCEDURE MEDICATIONS Versed 0.5 mg IV Fentanyl 25 mcg IV Versed 0.5 mg IV Fentanyl 25 mcg IV Oxygen: 2 L/min via nasal cannula Angiomax Bolus 17.3 ml's 12/28/2018 03:00:25 Angiomax 5mg / ml 40.3 ml/hr IV 12/28/2018 03:00:55 Angiomax dc'd ^FreeText^ @ 12/28/2018 03:26:10 Heparin given IA 12/28/2018 02:38:39 Nitro 200 mcg IC 12/28/2018 03:21:35 Nitro drip infused from icu dc'd ^FreeText^ 12/28/2018 03:26:10 Nitro 200 mcg IC 12/28/2018 03:27:48 Nitro 200 mcg IC 12/28/2018 03:44:05 Verapamil 2.5mg, Ntg 100mcgs, 2000 units of Heparin given IA 12/28/2018 02:38:39 IV Bolus: .9 NaCl 250 ml total 12/28/2018 03:24:15 SUMMARY OF HEMODYNAMIC DATA Time AIR REST ECG 02:25:20 AO 129/80 (100) SA 02:40:15 LV 124/4, 9 02:55:49 LV 121/1, 12 02:55:56 LV 131/8, 16 02:57:22 LVp 126/7, 18 02:57:29 AOp 123/77 (98) 02:57:35 Signed By Francie Masterson MD On 12/28/2018 04:07:32 Francie Masterson MD
[2018-12-28] MEDS: Ondansetron 4 MG/2 ML Vial IV ×2 (04:21→17:45)
[2018-12-28 04:36] LABS: ACT Activated Clotting Time 290 sec (74-137)
[2018-12-28 04:36] LABS: ACT Activated Clotting Time 147 sec (74-137)
[2018-12-28 04:54] LABS: Hematocrit 34.4 % (37-47); Hemoglobin 11.6 g/dl (12.0-15.0); Mean Corp Hgb Conc 33.7 g/gl (32-36); Mean Corpuscular Hgb 29.3 pg (27.0-32.0); Mean Corpuscular Volume 86.9 fL (81-99); Platelet Count 175 K/mm3 (150-450); RBC Distribution Width CV 14.1 % (11.6-14.6); RBC Distribution Width SD 44.5 fl (35.1-43.9); Red Blood Count 3.96 M/mm3 (4.2-5.4); White Blood Count 8.2 K/mm3 (4.4-11.0)
[2018-12-28 05:04] LABS: Partial Thromboplast Time 71.8 Seconds (24.1-36.2)
[2018-12-28 05:28] LABS: Cholesterol 162 mg/dL (200); High Density Lipoprotein 35 mg/dL; Triglycerides 182 mg/dL; Very Low Density Lipoprotein 36 mg/dL (5-40)
[2018-12-28] MEDS: Isosorbide Mononitrate 30 MG Tablet PO (05:29)
[2018-12-28] MEDS: 0.9% Normal Saline 1,000 ML 100 ML IV (06:13)
--- NOTE | 2018-12-28 08:14 | PCM.PN.HOSP ---
Patient Problems: Active and Suspected Problems NSTEMI (non-ST elevated myocardial infarction) (Acute) Unstable angina (Acute) Chest pain (Acute) Subjective: Patient had cardiac cath and PCI done huc ob today. Currently, chest pain free. Denies shortness of breath. Heart rate in low 100s or 90s. Regular rhythm. Telemetry reviewed. Access site right radial artery. Vitals/I&O's: Vital Signs Temp Pulse Resp BP Pulse Ox 98.4 F 91 16 118/76 96 12/28/18 02:00 12/28/18 06:00 12/28/18 06:00 12/28/18 06:00 12/28/18 06:00 Oxygen Flow Rate (L/min) 2 Oxygen Delivery Method Nasal Cannula Weight: 250 lb 3.594 oz Body Mass Index (BMI) 44.2 Intake and Output for Last 24 Hours 12/26/18 12/27/18 12/28/18 23:59 23:59 23:59 Intake Total 565 / 565 Output Total 900 / 900 Balance -335 / -335 General: Alert, Oriented x3, Cooperative HEENT: Atraumatic, PERRLA, EOMI, Normocephalic Neck: Supple, No JVD, Negative Carotid Bruits Lungs: Clear to auscultation, Normal air movement, No rhonchi, No wheeze, No rales Cardiovascular: Regular rate, Regular Rhythm, Normal S1, Normal S2, No murmurs Abdomen: Bowel Sounds Present, Soft, Non Tender, Non-Distended Extremities: No edema, Capillary Refill Less than 3 Seconds Skin: No rashes, No breakdown, - - Right radial access site has compression. Musculoskeletal: No Tenderness to Palpation of Joints or Extremities, Arthritic Changes Neurological: Cranial nerves II-XII grossly intact, Deep Tendon Reflexes 2+/4 and Symmetrical, Neuro grossly intact Psych/Mental Status: Normal Affect, Appropriate Laboratory Results 12/27/18 19:10: WBC 7.1, RBC 4.75, Hgb 14.0, Hct 41.6, MCV 87.6, MCH 29.5, MCHC 33.7, RDW 14.1, RDW Differential 44.8 H, Plt Count 197, MPV 10.5, Immature Gran % (Auto) 0.100, Neut % (Auto) 60.5, Lymph % (Auto) 29.9, Bradley % (Auto) 7.0, Eos % (Auto) 2.1, Baso % (Auto) 0.4, Absolute Neuts (auto) 4.3, Absolute Lymphs (auto) 2.13, Total Counted Not Reportable 12/27/18 19:10: PT 13.6, INR 1.1, APTT 24.1 12/27/18 19:10: Sodium 137, Potassium 4.5, Chloride 105, Carbon Dioxide 26.0, Anion Gap 6, BUN 25 H, Creatinine 1.01, Estim Creat Clear Calc 47.16, Est GFR (MDRD) Af Amer 71, Est GFR (MDRD) Non-Af 59 L, BUN/Creatinine Ratio 24.8 H, Glucose 223 H, Calcium 8.9, Troponin I 0.200 H 12/27/18 23:55: POC Glucose 251 H 12/28/18 00:20: Troponin I 0.161 H, TSH 2.45 12/28/18 00:20: Total Bilirubin 0.80, Direct Bilirubin 0.19, AST 159 H, ALT 209 H, Alkaline Phosphatase 126 H, Total Protein 7.2, Albumin 3.2, Globulin 4.0 12/28/18 02:52: Activated Clotting Time 147 H 12/28/18 03:50: Activated Clotting Time 290 H 12/28/18 04:45: Troponin I 0.125 H, Triglycerides 182, Cholesterol 162, LDL Cholesterol 91, VLDL Cholesterol 36, HDL Cholesterol 35 L 12/28/18 04:45: APTT 71.8 H 12/28/18 04:45: WBC 8.2, RBC 3.96 L, Hgb 11.6 L, Hct 34.4 L, MCV 86.9, MCH 29.3, MCHC 33.7, RDW 14.1, RDW Differential 44.5 H, Plt Count 175, MPV 10.0 Current Medications Acetaminophen (Tylenol) 650 mg PO Q6H PRN PRN PRN Reason: Fever, headache, pain [facility] Atenolol (Tenormin (Beta Shane)) 50 mg PO DAILY [facility] Atropine Sulfate () 0.5 mg IV UD PRN PRN Reason: HR <50 bpm Buspirone HCl (Buspar) 10 mg PO BID [facility] Last Admin: 12/27/18 23:45 Dose: 10 mg Fluoxetine HCl (Prozac) 40 mg PO DAILY [facility] Glimepiride (Amaryl) [facility] Last Admin: 12/27/18 23:45 Dose: 2 mg Heparin Sodium (Porcine) (Heparin Na) 0 unit IV UD PRN; Protocol Heparin Sodium/Dextrose () 25,000 units in 250 mls @ 10 mls/hr IV .Q25H [facility]; Protocol Last Admin: 12/27/18 21:19 Dose: 10 mls/hr Sodium Chloride () 1,000 mls @ 15 mls/hr IV .Q48H [facility] Last Admin: 12/28/18 06:14 Dose: Not Given Sodium Chloride () 1,000 mls @ 100 mls/hr IV .Q10H [facility] Stop: 12/28/18 13:56 Last Admin: 12/28/18 06:13 Dose: 100 mls/hr Sodium Chloride () 500 mls @ 999 mls/hr IV .Q31M PRN PRN Reason: VASO-VAGAL PROTOCOL Insulin Human Lispro (Humalog Kwikpen (Bkc)) 0 unit SC ACHS [facility]; Protocol Last Admin: 12/27/18 23:56 Dose: 3 u Isosorbide Mononitrate (Imdur) 30 mg PO DAILY [facility] Last Admin: 12/28/18 05:29 Dose: 30 mg Lisinopril (Zestril) 5 mg PO DAILY [facility] Magnesium Hydroxide (Milk Of Magnesia) 30 ml PO DAILY PRN PRN Reason: Constipation Morphine Sulfate () 1 mg IV Q3H PRN PRN PRN Reason: SEVERE PAIN (6-10/10) Ondansetron HCl (Zofran) 4 mg IV Q6H PRN PRN PRN Reason: NAUSEA/VOMITING Last Admin: 12/28/18 04:21 Dose: 4 mg Pravastatin Sodium (Pravachol) 80 mg PO QHS [facility] Sodium Chloride () 5 - 15 ml IV UD PRN PRN Reason: SALINE FLUSH Last Admin: 12/28/18 04:21 Dose: 10 ml Ticagrelor (Brilinta) 90 mg PO BID [facility] Trazodone HCl (Desyrel) 100 mg PO QHS [facility] Last Admin: 12/27/18 23:46 Dose: 100 mg Medical Necessity - Tobacco Use Smoking Status: Former smoker Assessment/Plan All Active Problems NSTEMI (non-ST elevated myocardial infarction) (Acute) Unstable angina (Acute) Chest pain (Acute) This is a 63 years old female patient presented to the emergency room because of shortness of breath and chest pain, found to have abnormal cardiac enzymes and she is being admitted for evaluation and treatment. Patient had elevated troponins #1 Unstable angina/non-STEMI: The patient is being admitted in ICU after PCI of single vessel coronary artery, proximal and mid LAD. EKG revealed nonspecific ST-T abnormality in the anterolateral leads and subsequent loss of R wave in precordial lead V3.. It did not meet criteria for STEMI. Subsequently, patient was started on IV heparin drip, nitroglycerin drip, loading dose of Brilinta and then cardiac cath. 2D echo is being ordered. On aspirin, Brilinta, atenolol and lisinopril. On pravastatin. #2 Sinus tachycardia: Patient mentioned that she had a history of tachycardia and palpitation, has been on propanolol.TSH 2.45. #3 type 2 diabetes mellitus: ADA diet, Accu-Cheks, insulin sliding scale, continue home doses of Lantus, continue glimepiride, hold metformin. #4 hypertension: Blood pressure was elevated but controlled now, continue atenolol and lisinopril, hold HCTZ. #5 depression: Continue trazodone. #6 hyperlipidemia: Continue statins. 7 elevated transaminases: Patient does not have history of alcohol use and dependence. No abdominal pain or tenderness. In fact, she does not know previous history of elevated transaminases or hepatobiliary issues except cholecystectomy in the past. Possible nonalcoholic steatohepatitis. AST 159 H, ALT 209 H, Alkaline Phosphatase 126 H. There is no imaging of liver/hepatobiliary system in our EMR. 8 DVT prophylaxis: Resume after 24 hours of PCI. Patient has arterial sheath in the right radial artery. Active Medications Acetaminophen (Tylenol) 650 mg PO Q6H PRN PRN PRN Reason: Fever, headache, pain Aspirin (Ecotrin) 81 mg PO DAILYCM [facility] Atenolol (Tenormin (Beta Shane)) 50 mg PO DAILY [facility] Atropine Sulfate () 0.5 mg IV UD PRN PRN Reason: HR <50 bpm Buspirone HCl (Buspar) 10 mg PO BID [facility] Last Admin: 12/27/18 23:45 Dose: 10 mg Fluoxetine HCl (Prozac) 40 mg PO DAILY [facility] (Amaryl) [facility] Last Admin: 12/27/18 23:45 Dose: 2 mg Heparin Sodium (Porcine) (Heparin Na) 0 unit IV UD PRN; Protocol Heparin Sodium/Dextrose () 25,000 units in 250 mls @ 10 mls/hr IV .Q25H [facility]; Protocol Last Admin: 12/27/18 21:19 Dose: 10 mls/hr Sodium Chloride () 1,000 mls @ 15 mls/hr IV .Q48H [facility] Last Admin: 12/28/18 06:14 Dose: Not Given Sodium Chloride () 1,000 mls @ 100 mls/hr IV .Q10H [facility] Stop: 12/28/18 13:56 Last Admin: 12/28/18 06:13 Dose: 100 mls/hr Sodium Chloride () 500 mls @ 999 mls/hr IV .Q31M PRN PRN Reason: VASO-VAGAL PROTOCOL Insulin Human Lispro (Humalog Kwikpen (Bkc)) 0 unit SC ACHS [facility]; Protocol Last Admin: 12/27/18 23:56 Dose: 3 u Isosorbide Mononitrate (Imdur) 30 mg PO DAILY [facility] Last Admin: 12/28/18 05:29 Dose: 30 mg Lisinopril (Zestril) 5 mg PO DAILY [facility] Magnesium Hydroxide (Milk Of Magnesia) 30 ml PO DAILY PRN PRN Reason: Constipation Morphine Sulfate () 1 mg IV Q3H PRN PRN PRN Reason: SEVERE PAIN (6-10/10) Ondansetron HCl (Zofran) 4 mg IV Q6H PRN PRN PRN Reason: NAUSEA/VOMITING Last Admin: 12/28/18 04:21 Dose: 4 mg Pravastatin Sodium (Pravachol) 80 mg PO QHS [facility] Sodium Chloride () 5 - 15 ml IV UD PRN PRN Reason: SALINE FLUSH Last Admin: 12/28/18 04:21 Dose: 10 ml Ticagrelor (Brilinta) 90 mg PO BID [facility] Trazodone HCl (Desyrel) 100 mg PO QHS [facility] Last Admin: 12/27/18 23:46 Dose: 100 mg Laboratory Results 12/27/18 19:10: WBC 7.1, RBC 4.75, Hgb 14.0, Hct 41.6, MCV 87.6, MCH 29.5, MCHC 33.7, RDW 14.1, RDW Differential 44.8 H, Plt Count 197, MPV 10.5, Immature Gran % (Auto) 0.100, Neut % (Auto) 60.5, Lymph % (Auto) 29.9, Bradley % (Auto) 7.0, Eos % (Auto) 2.1, Baso % (Auto) 0.4, Absolute Neuts (auto) 4.3, Absolute Lymphs (auto) 2.13, Total Counted Not Reportable 12/27/18 19:10: PT 13.6, INR 1.1, APTT 24.1 12/27/18 19:10: Sodium 137, Potassium 4.5, Chloride 105, Carbon Dioxide 26.0, Anion Gap 6, BUN 25 H, Creatinine 1.01, Estim Creat Clear Calc 47.16, Est GFR (MDRD) Af Amer 71, Est GFR (MDRD) Non-Af 59 L, BUN/Creatinine Ratio 24.8 H, Glucose 223 H, Calcium 8.9, Troponin I 0.200 H 12/27/18 23:55: POC Glucose 251 H 12/28/18 00:20: Troponin I 0.161 H, TSH 2.45 12/28/18 00:20: Total Bilirubin 0.80, Direct Bilirubin 0.19, AST 159 H, ALT 209 H, Alkaline Phosphatase 126 H, Total Protein 7.2, Albumin 3.2, Globulin 4.0 12/28/18 02:52: Activated Clotting Time 147 H 12/28/18 03:50: Activated Clotting Time 290 H 12/28/18 04:45: Troponin I 0.125 H, Triglycerides 182, Cholesterol 162, LDL Cholesterol 91, VLDL Cholesterol 36, HDL Cholesterol 35 L 12/28/18 04:45: APTT 71.8 H 12/28/18 04:45: WBC 8.2, RBC 3.96 L, Hgb 11.6 L, Hct 34.4 L, MCV 86.9, MCH 29.3, MCHC 33.7, RDW 14.1, RDW Differential 44.5 H, Plt Count 175, MPV 10.0 Code Visit Inpatient E&M: 26683 Subs Hosp L3
--- NOTE | 2018-12-28 08:35 | PN_ITS ---
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 Currently, chest pain free. Denies shortness of breath. Heart rate in low 100s or 90s. Regular rhythm. Telemetry reviewed. Access site right radial artery. Vitals/I&O's: Vital Signs Temp Pulse Resp BP Pulse Ox 98.4 F 91 16 118/76 96 12/28/18 02:00 12/28/18 06:00 12/28/18 06:00 12/28/18 06:00 12/28/18 06:00 Oxygen Flow Rate (L/min) 2 Oxygen Delivery Method Nasal Cannula Weight: 250 lb 3.594 oz Body Mass Index (BMI) 44.2 Intake and Output for Last 24 Hours 12/26/18 12/27/18 12/28/18 23:59 23:59 23:59 Intake Total 565 / 565 Output Total 900 / 900 Balance -335 / -335 General: Alert, Oriented x3, Cooperative HEENT: Atraumatic, PERRLA, EOMI, Normocephalic Neck: Supple, No JVD, Negative Carotid Bruits Lungs: Clear to auscultation, Normal air movement, No rhonchi, No wheeze, No rales Cardiovascular: Regular rate, Regular Rhythm, Normal S1, Normal S2, No murmurs Abdomen: Bowel Sounds Present, Soft, Non Tender, Non-Distended Extremities: No edema, Capillary Refill Less than 3 Seconds Skin: No rashes, No breakdown, - - Right radial access site has compression. Musculoskeletal: No Tenderness to Palpation of Joints or Extremities, Arthritic Changes Neurological: Cranial nerves II-XII grossly intact, Deep Tendon Reflexes 2+/4 and Symmetrical, Neuro grossly intact Psych/Mental Status: Normal Affect, Appropriate Laboratory Results 12/27/18 19:10: WBC 7.1, RBC 4.75, Hgb 14.0, Hct 41.6, MCV 87.6, MCH 29.5, MCHC 33.7, RDW 14.1, RDW Differential 44.8 H, Plt Count 197, MPV 10.5, Immature Gran % (Auto) 0.100, Neut % (Auto) 60.5, Lymph % (Auto) 29.9, Randolph % (Auto) 7.0, Eos % (Auto) 2.1, Baso % (Auto) 0.4, Absolute Neuts (auto) 4.3, Absolute Lymphs (auto) 2.13, Total Counted Not Reportable 12/27/18 19:10: PT 13.6, INR 1.1, APTT 24.1 12/27/18 19:10: Sodium 137, Potassium 4.5, Chloride 105, Carbon Dioxide 26.0, Anion Gap 6, BUN 25 H, Creatinine 1.01, Estim Creat Clear Calc 47.16, Est GFR (MDRD) Af Amer 71, Est GFR (MDRD) Non-Af 59 L, BUN/Creatinine Ratio 24.8 H, Glucose 223 H, Calcium 8.9, Troponin I 0.200 H 12/27/18 23:55: POC Glucose 251 H 12/28/18 00:20: Troponin I 0.161 H, TSH 2.45 12/28/18 00:20: Total Bilirubin 0.80, Direct Bilirubin 0.19, AST 159 H, ALT 209 H, Alkaline Phosphatase 126 H, Total Protein 7.2, Albumin 3.2, Globulin 4.0 12/28/18 02:52: Activated Clotting Time 147 H 12/28/18 03:50: Activated Clotting Time 290 H 12/28/18 04:45: Troponin I 0.125 H, Triglycerides 182, Cholesterol 162, LDL Cholesterol 91, VLDL Cholesterol 36, HDL Cholesterol 35 L 12/28/18 04:45: APTT 71.8 H 12/28/18 04:45: WBC 8.2, RBC 3.96 L, Hgb 11.6 L, Hct 34.4 L, MCV 86.9, MCH 29.3, MCHC 33.7, RDW 14.1, RDW Differential 44.5 H, Plt Count 175, MPV 10.0 Current Medications Acetaminophen (Tylenol) 650 mg PO Q6H PRN PRN PRN Reason: Fever, headache, pain [facility] Atenolol (Tenormin (Beta Shane)) 50 mg PO DAILY [facility] Atropine Sulfate () 0.5 mg IV UD PRN PRN Reason: HR <50 bpm Buspirone HCl (Buspar) 10 mg PO BID [facility] Last Admin: 12/27/18 23:45 Dose: 10 mg Fluoxetine HCl (Prozac) 40 mg PO DAILY [facility] ([facility] Last Admin: 12/27/18 23:45 Dose: 2 mg Heparin Sodium (Porcine) (Heparin Na) 0 unit IV UD PRN; Protocol Heparin Sodium/Dextrose () 25,000 units in 250 mls @ 10 mls/hr IV .Q25H [facility]; Protocol Last Admin: 12/27/18 21:19 Dose: 10 mls/hr Sodium Chloride () 1,000 mls @ 15 mls/hr IV .Q48H [facility] Last Admin: 12/28/18 06:14 Dose: Not Given Sodium Chloride () 1,000 mls @ 100 mls/hr IV .Q10H [facility] Stop: 12/28/18 13:56 Last Admin: 12/28/18 06:13 Dose: 100 mls/hr Sodium Chloride () 500 mls @ 999 mls/hr IV .Q31M PRN PRN Reason: VASO-VAGAL PROTOCOL Insulin Human Lispro (Humalog Kwikpen (Bkc)) 0 unit SC ACHS [facility]; Protocol Last Admin: 12/27/18 23:56 Dose: 3 u Isosorbide Mononitrate (Imdur) 30 mg PO DAILY [facility] Last Admin: 12/28/18 05:29 Dose: 30 mg Lisinopril (Zestril) 5 mg PO DAILY [facility] Magnesium Hydroxide (Milk Of Magnesia) 30 ml PO DAILY PRN PRN Reason: Constipation Morphine Sulfate () 1 mg IV Q3H PRN PRN PRN Reason: SEVERE PAIN (6-10/10) Ondansetron HCl (Zofran) 4 mg IV Q6H PRN PRN PRN Reason: NAUSEA/VOMITING Last Admin: 12/28/18 04:21 Dose: 4 mg Pravastatin Sodium (Pravachol) 80 mg PO QHS [facility] Sodium Chloride () 5 - 15 ml IV UD PRN PRN Reason: SALINE FLUSH Last Admin: 12/28/18 04:21 Dose: 10 ml Ticagrelor (Brilinta) 90 mg PO BID [facility] Trazodone HCl (Desyrel) 100 mg PO QHS [facility] Last Admin: 12/27/18 23:46 Dose: 100 mg Medical Necessity - Tobacco Use Smoking Status: Former smoker Assessment/Plan All Active Problems NSTEMI (non-ST elevated myocardial infarction) (Acute) Unstable angina (Acute) Chest pain (Acute) This is a 63 years old female patient presented to the emergency room because of shortness of breath and chest pain, found to have abnormal cardiac enzymes and she is being admitted for evaluation and treatment. Patient had elevated troponins #1 Unstable angina/non-STEMI: The patient is being admitted in ICU after PCI of single vessel coronary artery, proximal and mid LAD. EKG revealed nonspecific ST-T abnormality in the anterolateral leads and subsequent loss of R wave in precordial lead V3.. It did not meet criteria for STEMI. Subsequently, patient was started on IV heparin drip, nitroglycerin drip, loading dose of Brilinta and then cardiac cath. 2D echo is being ordered. On aspirin, Brilinta, atenolol and lisinopril. On pravastatin. #2 Sinus tachycardia: Patient mentioned that she had a history of tachycardia and palpitation, has been on propanolol.TSH 2.45. #3 type 2 diabetes mellitus: ADA diet, Accu-Cheks, insulin sliding scale, continue home doses of Lantus, continue glimepiride, hold metformin. #4 hypertension: Blood pressure was elevated but controlled now, continue atenolol and lisinopril, hold HCTZ. #5 depression: Continue trazodone. #6 hyperlipidemia: Continue statins. 7 elevated transaminases: Patient does not have history of alcohol use and de pendence. No abdominal pain or tenderness. In fact, she does not know previous history of elevated transaminases or hepatobiliary issues except cholecystectomy in the past. Possible nonalcoholic steatohepatitis. AST 159 H, ALT 209 H, Alkaline Phosphatase 126 H. There is no imaging of liver/hepatobiliary system in our EMR. 8 DVT prophylaxis: Resume after 24 hours of PCI. Patient has arterial sheath in the right radial artery. Active Medications Acetaminophen (Tylenol) 650 mg PO Q6H PRN PRN PRN Reason: Fever, headache, pain Aspirin (Ecotrin) 81 mg PO DAILYCM [facility] Atenolol (Tenormin (Beta Shane)) 50 mg PO DAILY [facility] Atropine Sulfate () 0.5 mg IV UD PRN PRN Reason: HR <50 bpm Buspirone HCl (Buspar) 10 mg PO BID [facility] Last Admin: 12/27/18 23:45 Dose: 10 mg Fluoxetine HCl (Prozac) 40 mg PO DAILY [facility] Last Admin: 12/27/18 23:45 Dose: 2 mg Heparin Sodium (Porcine) (Heparin Na) 0 unit IV UD PRN; Protocol Heparin Sodium/Dextrose () 25,000 units in 250 mls @ 10 mls/hr IV .Q25H [facility]; Protocol Last Admin: 12/27/18 21:19 Dose: 10 mls/hr Sodium Chloride () 1,000 mls @ 15 mls/hr IV .Q48H [facility] Last Admin: 12/28/18 06:14 Dose: Not Given Sodium Chloride () 1,000 mls @ 100 mls/hr IV .Q10H [facility] Stop: 12/28/18 13:56 Last Admin: 12/28/18 06:13 Dose: 100 mls/hr Sodium Chloride () 500 mls @ 999 mls/hr IV .Q31M PRN PRN Reason: VASO-VAGAL PROTOCOL Insulin Human Lispro (Humalog Kwikpen (Bkc)) 0 unit SC ACHS [facility]; Protocol Last Admin: 12/27/18 23:56 Dose: 3 u Isosorbide Mononitrate (Imdur) 30 mg PO DAILY [facility] Last Admin: 12/28/18 05:29 Dose: 30 mg Lisinopril (Zestril) 5 mg PO DAILY [facility] Magnesium Hydroxide (Milk Of Magnesia) 30 ml PO DAILY PRN PRN Reason: Constipation Morphine Sulfate () 1 mg IV Q3H PRN PRN PRN Reason: SEVERE PAIN (6-10/10) Ondansetron HCl (Zofran) 4 mg IV Q6H PRN PRN PRN Reason: NAUSEA/VOMITING Last Admin: 12/28/18 04:21 Dose: 4 mg Pravastatin Sodium (Pravachol) 80 mg PO QHS [facility] Sodium Chloride () 5 - 15 ml IV UD PRN PRN Reason: SALINE FLUSH Last Admin: 12/28/18 04:21 Dose: 10 ml Ticagrelor (Brilinta) 90 mg PO BID [facility] Trazodone HCl (Desyrel) 100 mg PO QHS [facility] Last Admin: 12/27/18 23:46 Dose: 100 mg Laboratory Results 12/27/18 19:10: WBC 7.1, RBC 4.75, Hgb 14.0, Hct 41.6, MCV 87.6, MCH 29.5, MCHC 33.7, RDW 14.1, RDW Differential 44.8 H, Plt Count 197, MPV 10.5, Immature Gran % (Auto) 0.100, Neut % (Auto) 60.5, Lymph % (Auto) 29.9, Randolph % (Auto) 7.0, Eos % (Auto) 2.1, Baso % (Auto) 0.4, Absolute Neuts (auto) 4.3, Absolute Lymphs (auto) 2.13, Total Counted Not Reportable 12/27/18 19:10: PT 13.6, INR 1.1, APTT 24.1 12/27/18 19:10: Sodium 137, Potassium 4.5, Chloride 105, Carbon Dioxide 26.0, Anion Gap 6, BUN 25 H, Creatinine 1.01, Estim Creat Clear Calc 47.16, Est GFR (MDRD) Af Amer 71, Est GFR (MDRD) Non-Af 59 L, BUN/Creatinine Ratio 24.8 H, Glucose 223 H, Calcium 8.9, Troponin I 0.200 H 12/27/18 23:55: POC Glucose 251 H 12/28/18 00:20: Troponin I 0.161 H, TSH 2.45 12/28/18 00:20: Total Bilirubin 0.80, Direct Bilirubin 0.19, AST 159 H, ALT 209 H, Alkaline Phosphatase 126 H, Total Protein 7.2, Albumin 3.2, Globulin 4.0 12/28/18 02:52: Activated Clotting Time 147 H 12/28/18 03:50: Activated Clotting Time 290 H 12/28/18 04:45: Troponin I 0.125 H, Triglycerides 182, Cholesterol 162, LDL Cholesterol 91, VLDL Cholesterol 36, HDL Cholesterol 35 L 12/28/18 04:45: APTT 71.8 H 12/28/18 04:45: WBC 8.2, RBC 3.96 L, Hgb 11.6 L, Hct 34.4 L, MCV 86.9, MCH 29.3, MCHC 33.7, RDW 14.1, RDW Differential 44.5 H, Plt Count 175, MPV 10.0 Code Visit Inpatient E&M: 39174 Subs Hosp L3
[2018-12-28 08:36] LABS: Bedside Glucose 261 mg/dL (70-110)
--- NOTE | 2018-12-28 08:37 | US_ITS ---
STUDY: ABDOMINAL ULTRASOUND - RIGHT UPPER QUADRANT REASON FOR VISIT: Female, 63 years old. Elevated LFTs TECHNIQUE: Ultrasound evaluation of the right upper quadrant was performed with real-time and static sheikh-scale imaging. TECHNICAL QUALITY: Adequate. COMPARISON: None. FINDINGS: Liver: The liver measures 20.6 cm. There is fatty echogenicity of the liver. The bile ducts are within normal limits. There is hepatic color flow. The direction of portal flow is hepatopetal. There is no demonstrated mass lesion. Gallbladder: Status post cholecystectomy. Common Bile Duct (C.B.D.): The common bile duct measures 8.2 mm. Pancreas: Atrophy of the pancreas. There is increased echogenicity of the pancreas. There is no demonstrated pancreatic mass or cyst. Right Kidney: Normal size of the right kidney. The right kidney measures 10.3 x 5.4 x 4.4 cm. Thinning renal cortex. The right cortex measures 0.8 cm. There is no demonstrated renal mass or cyst. There is no right hydronephrosis. US/Abdomen Limited IMPRESSION: Enlarged fatty liver. Trace perihepatic fluid. Mild cortical thinning of the right kidney. Status post cholecystectomy. Mild prominence of the common bile duct. Electronically Signed: Sanjay Cabrera DO at 20:50 EDT Tel [phone], Service support ,
[2018-12-28 09:05] LABS: AST(SGOT) 106 U/L (15-37); Alanine Aminotransfer ALT/SGPT 174 U/L (13-56); Albumin, Serum 2.9 g/dL (3.2-5.0); Alkaline Phosphatase 110 U/L (45-117); Bilirubin, Direct 0.19 mg/dL (0.00-0.30); Globulin 3.8 g/dL (2.2-4.2); Protein, Total 6.7 g/dL (6.4-8.2)
[2018-12-28 09:13] LABS: Absolute Lymphocyte Count 1.23 X10^3/ul (0.83-4.51); Absolute Neutrophil Count 6.6 X10^3/uL (2.0-7.7); Basophil# 0.02 X10^3/uL; Basophil% 0.2 % (0-1); Eosinophil# 0.04 X10^3/uL; Eosinophils% 0.5 % (0-5); Lymphocyte # 1.23 X10^3/ul (4.0); Lymphocyte % 14.6 % (19-41); Monocyte# 0.57 X10^3/uL; Monocyte% 6.8 % (0-10); Neutrophil # 6.57 X10^3/uL (2.7-7.7); Neutrophil % 77.8 % (47-70); POSITIVE COUNT NO; POSITIVE DIFFERENTIAL NO; POSITIVE MORPHOLOGY NO
[2018-12-28] MEDS: FLUoxetine 20 MG Capsule 40 MG PO (09:31)
[2018-12-28] MEDS: busPIRone 5 MG Tablet 10 MG PO ×2 (09:31→21:54)
[2018-12-28] MEDS: Aspirin E.C. 81 MG Tablet PO (09:31)
[2018-12-28] MEDS: TICAGRELOR 90 MG TABLET PO ×2 (09:31→21:55)
[2018-12-28] MEDS: Glimepiride 2 MG Tablet PO ×2 (09:32→16:25)
[2018-12-28] MEDS: Atenolol 50 MG Tablet PO (09:32)
[2018-12-28] MEDS: Lisinopril 5 MG Tablet PO (09:32)
--- NOTE | 2018-12-28 09:32 | CRPHASE1 ---
Patient Communication PHII Cardiac Rehab Discussed with Patient:: Yes Guide to Cardiac Rehab Given to Patient:: Yes Cardiac Rehab Facility Choice List Given to Patient:: Yes - [facility] Choice Program [facility] CR PHII:: Communication Given to CR, Refer to [facility] Printed Circuit Board Drafter:: Wisam Díaz Phase II Cardiac Rehab:: Yes Sessions:: 36 sessions - 3 days/wk, 12 weeks Risk Factors/Lifestyle Smoking Status: Former smoker Hx Hypertension: Yes Hx Diabetes Mellitus Type 2: Yes Height: 1.6 m Weight:: 113.3 kg BMI: 44.2 Post-Menopausal: Yes ETOH: No Caffeine: Yes Substance Abuse: No Family History: High Cholesterol, Heart Disease Laboratory Values: Cardiac Rehab Phase I Labs Triglycerides 182 mg/dL (-199) 12/28/18 04:45 Cholesterol 162 mg/dL (200) 12/28/18 04:45 LDL Cholesterol 91 mg/dL (0-130) 12/28/18 04:45 HDL Cholesterol 35 mg/dL (40-) L 12/28/18 04:45 Phase I Education Given On:: [place], Nutrition, Antiplatelet medication Issues Affecting Care:: None Knowledge of Condition:: Yes Hospital Course Pain Description: Sharp, Tightness Pain Intensity: 7 Cardiac Cath Date:: 12/28/18 Medical/Surgical History CAD:: Yes Diabetes:: Yes Diabetes Type II:: Yes Hypertension:: Yes Dyslipidemia:: Yes Discharge/Home/Social Eval Discharge Disposition: Home Cardiac Rehabilitation Info Cardiac Rehabilitation Program Information: Cardiac Rehabilitation is important for patients like you who are recovering from a heart problem. Cardiac rehabilitation programs are recognized as integral to the continued care of the patient with coronary heart disease. The cardiac rehabilitation program is designed to optimize a patient's physical, psychological, and social functioning. Health care specialist work in cardiac rehabilitation programs and assist you with getting the treatments you need to get stronger and healthier - like exercise, healthy eating habits, and medications. Cardiac rehabilitation has been show to help people with heart problems live longer and have better life enjoyment than people who do not go to cardiac rehabilitation. Please contact the Cardiac Rehabilitation Program at [facility] at in two weeks if you have not heard from them.
--- NOTE | 2018-12-28 09:36 | CRPHASE1_ITS ---
Patient Communication PHII Cardiac Rehab Discussed with Patient:: Yes Guide to Cardiac Rehab Given to Patient:: Yes Cardiac Rehab Facility Choice List Given to Patient:: Yes - [facility] Choice Program [facility] CR PHII:: Communication Given to CR, Refer to [facility] Metalsmith Apprentice:: Wisam Díaz Phase II Cardiac Rehab:: Yes Sessions:: 36 sessions - 3 days/wk, 12 weeks Risk Factors/Lifestyle Smoking Status: Former smoker Hx Hypertension: Yes Hx Diabetes Mellitus Type 2: Yes Height: 1.6 m Weight:: 113.3 kg BMI: 44.2 Post-Menopausal: Yes ETOH: No Caffeine: Yes Substance Abuse: No Family History: High Cholesterol, Heart Disease Laboratory Values: Cardiac Rehab Phase I Labs Triglycerides 182 mg/dL (-199) 12/28/18 04:45 Cholesterol 162 mg/dL (200) 12/28/18 04:45 LDL Cholesterol 91 mg/dL (0-130) 12/28/18 04:45 HDL Cholesterol 35 mg/dL (40-) L 12/28/18 04:45 Phase I Education Given On:: [place], Nutrition, Antiplatelet medication Issues Affecting Care:: None Knowledge of Condition:: Yes Hospital Course Pain Description: Sharp, Tightness Pain Intensity: 7 Cardiac Cath Date:: 12/28/18 Medical/Surgical History CAD:: Yes Diabetes:: Yes Diabetes Type II:: Yes Hypertension:: Yes Dyslipidemia:: Yes Discharge/Home/Social Eval Discharge Disposition: Home Cardiac Rehabilitation Info Cardiac Rehabilitation Program Information: Cardiac Rehabilitation is important for patients like you who are recovering from a heart problem. Cardiac rehabilitation programs are recognized as integral to the continued care of the patient with coronary heart disease. The cardiac rehabilitation program is designed to optimize a patient's physical, psychological, and social functioning. Health care attendant work in cardiac rehabilitation programs and assist you with getting the treatments you need to get stronger and healthier - like exercise, healthy eating habits, and medications. Cardiac rehabilitation has been show to help people with heart problems live longer and have better life enjoyment than people who do not go to cardiac rehabilitation. Please contact the Cardiac Rehabilitation Program at [facility] at in two weeks if you have not heard from them.
[2018-12-28 09:38] LABS: Anion Gap 11 (5-15); BUN 19 mg/dL (7-18); BUN/Creat Ratio 25.6 RATIO (10-20); Calcium,Total 8.4 mg/dL (8.5-10.1); Chloride 104 mmol/L (98-107); Creatinine, Serum 0.74 mg/dL (0.55-1.02); EST Glomerular Filtration Rate 84 mL/min (>60); Est Glom Filt Rate - Afr Amer 101 mL/min (>60); Estimated Creatinine Clearance 64.37 ml/min; Glucose 244 mg/dL (74-106); Potassium 3.7 mmol/L (3.5-5.1); Sodium Level 137 mmol/L (136-145)
[2018-12-28] MEDS: Insulin Lispro 100 UNIT/ML INSULN.PEN SC ×4 (09:39→21:55)
--- NOTE | 2018-12-28 09:39 | CRPH1.INSTRU ---
General Education CAD and cardiac anatomy and function:: Patient communicates acknowledgment Explanation of diagnoses and procedures:: Patient communicates acknowledgment Sign/Symptoms of CO:: Patient communicates acknowledgment Antiplatelet therapy: Patient communicates acknowledgment Proper use of NTG-SL: Not instructed Emergency procedures and activation of EMS: Patient communicates acknowledgment Compliance of all prescribed medications: Patient communicates acknowledgment Smoking Patient Nicotine/Smoking Risk Factors Are:: Non-smoker - quit 10years ago Nicotine/Smoking Response Code:: Patient communicates acknowledgment Dyslipidemia Patient Dyslipidemia Risk Factors Are:: Total Cholesterol - 162, Triglycerides - 182, HDL - 35, LDL - 91 Recommendations Include:: Lipid profile provided Dyslipidemia Response Code:: Patient communicates acknowledgment Overweight/Obesity Patient Overweight/Obesity Risk Factors Are:: Overweight = 26-29 Overweight/Obesity:: Patient communicates acknowledgment Hypertension Recommendations Include:: Maintain BP <130/85, BP <130/80 if diabetic, DASH dietary guidelines, Decrease/maintain normal body weight Hypertension:: Family communicates acknowledgment Heart Disease Patient Heart Disease Risk Factors Are:: Family history of heart disease < 65 years old Heart Disease Response Code:: Patient communicates acknowledgment Diabetes Patient Diabetes Risk Factors Are:: Elevated blood sugars Recommendations Include:: Maintain fasting blood sugars 70-110 md/dL, Maintain HgbA1c of 6% or less, Monitor blood sugar as prescribed, Diabetic dietary guidelines, Decrease/maintain body weight Diabetes:: Patient communicates acknowledgment Metabolic Syndrome Patient Metabolic Syndrome Risk Factors Are [3 of 5]:: Fasting blood sugar > 100 mg/dL, Waist circumference > 35 [female] or 40 [male], High triglyceride >150, Hypertension, Low HDL <40 [male] or < 50 [female] Metabolic Syndrome Response Code:: Patient communicates acknowledgment Sedentary Recommendations Include:: Benefits of regular exercise, Discussed home walking program, Monitored Outpatient Cardiac Rehab Sedentary Response Code:: Patient communicates acknowledgment Stress Patient Stress Risk Factors Are:: Patient denies stress as a risk factor Stress Response Code:: Patient communicates acknowledgment
--- NOTE | 2018-12-28 09:48 | CASEMGMT ---
RN CM Assessment Presentation: PTCA/ALEAH prox mid LAD. Intro role of CM and purpose of RN CM assessment to patient in room. Pt is awake, alert and able to partcipate in assessment. Demographics, PCP and Pharmacy verified. PCP: Dr. Calvillo Specialists: Dr. Díaz Preferred Pharmacy: [facility] card given and explained. Insurance:[facility] Prescription Benefit: yes LNOK: Daughter Aundrea Ramsay Living Arrangements: Lives independently. No care needs. Transportation:drives DME: cane only. HHC: none Patient DC goals: Home DC PLAN: Home Pierre BAUER BSN CM
[2018-12-28] MEDS: Acetaminophen 325 MG Tablet 650 MG PO (10:58)
--- NOTE | 2018-12-28 12:56 | PCM.PN.CARD ---
Subjectve: The patient is awake and alert. She states she is feeling better since her PCI procedure with respect to her chest discomfort and her dyspnea. However, she does still have an element of dyspnea. There is been no additional nausea. Objective: Vital Signs Temp Pulse Resp BP Pulse Ox 99 F 99 22 H 136/78 H 95 12/28/18 09:00 12/28/18 09:00 12/28/18 09:00 12/28/18 09:00 12/28/18 09:00 Oxygen Flow Rate (L/min) 2 Oxygen Delivery Method Nasal Cannula Weight: 249 lb 12.54 oz Body Mass Index (BMI) 44.2 Intake and Output for Last 24 Hours 12/26/18 12/27/18 12/28/18 23:59 23:59 23:59 Intake Total 565 / 565 Output Total 900 / 900 Balance -335 / -335 General: Awake, Alert, Oriented x 3, Cooperative, No Acute Distress HEENT: Atraumatic, Normocephalic, PERRL, EOMI, Sclera Non Icteric Oral: Moist Mucosa Neck: Supple, Good ROM, No JVD Lungs: Clear to auscultation Cardiovascular: Regular Rhythm, Normal S1, Normal S2, Positive S4 Vascular: No Carotid Bruits Abdomen: Bowel Sounds Present, Soft, Non Tender Extremities: No Cyanosis, No Clubbing, No edema Neurological: No Focal Motor or Sensory Deficit Psych/Mental Status: Appropriate 12/27/18 19:10: WBC 7.1, RBC 4.75, Hgb 14.0, Hct 41.6, MCV 87.6, MCH 29.5, MCHC 33.7, RDW 14.1, RDW Differential 44.8 H, Plt Count 197, MPV 10.5, Immature Gran % (Auto) 0.100, Neut % (Auto) 60.5, Lymph % (Auto) 29.9, [place] % (Auto) 7.0, Eos % (Auto) 2.1, Baso % (Auto) 0.4, Absolute Neuts (auto) 4.3, Total Counted Not Reportable 12/27/18 19:10: PT 13.6, INR 1.1, APTT 24.1 12/27/18 19:10: Sodium 137, Potassium 4.5, Chloride 105, Carbon Dioxide 26.0, Anion Gap 6, BUN 25 H, Creatinine 1.01, Est GFR (MDRD) Af Amer 71, Est GFR (MDRD) Non-Af 59 L, BUN/Creatinine Ratio 24.8 H, Glucose 223 H, Calcium 8.9, Troponin I 0.200 H 12/28/18 00:20: Troponin I 0.161 H 12/28/18 00:20: Total Bilirubin 0.80, Direct Bilirubin 0.19 12/28/18 04:45: Sodium 137, Potassium 3.7, Chloride 104, Carbon Dioxide 22.0, Anion Gap 11, BUN 19 H, Creatinine 0.74, Est GFR (MDRD) Af Amer 101, Est GFR (MDRD) Non-Af 84, BUN/Creatinine Ratio 25.6 H, Glucose 244 H, Calcium 8.4 L 12/28/18 04:45: Troponin I 0.125 H, Triglycerides 182, Cholesterol 162, LDL Cholesterol 91, VLDL Cholesterol 36, HDL Cholesterol 35 L 12/28/18 04:45: APTT 71.8 H 12/28/18 04:45: WBC 8.2, RBC 3.96 L, Hgb 11.6 L, Hct 34.4 L, MCV 86.9, MCH 29.3, MCHC 33.7, RDW 14.1, RDW Differential 44.5 H, Plt Count 175, MPV 10.0, Immature Gran % (Auto) 0.100, Neut % (Auto) 77.8 H, Lymph % (Auto) 14.6 L, [place] % (Auto) 6.8, Eos % (Auto) 0.5, Baso % (Auto) 0.2, Absolute Neuts (auto) 6.6, Total Counted Not Reportable 12/28/18 04:45: Total Bilirubin 1.00, Direct Bilirubin 0.19 Rhythm: Sinus rhythm EKG: Sinus rhythm; poor R wave progression; anterior AK of indeterminate age cannot be excluded; nonspecific ST and T wave changes; compared to the previous ECG there appears to be no acute changes. ECHO: Pending Cardiac Cath: Please see official report PCI: Please see official report Medical Necessity - Tobacco Use Smoking Status: Former smoker Assessment/Plan 1. Unstable angina pectoris/non-ST segment elevation AK She is now status post diagnostic cardiac catheterization and subsequent LAD PCI. She appears to be improving. She will continue medical management with adjustment as needed. She will eventually need outpatient cardiovascular follow-up and cardiac rehabilitation therapy. 2. Hyperlipidemia She can have her lipids reassessed. She will need to continue medical therapy with her statins. 3. Hypertension Her blood pressures are being followed. Her medications can be adjusted as needed. 4. Diabetes mellitus She will need to continue under evaluation care by internal medicine. 5. Elevated hepatic transaminases The patient's hepatic transaminases are elevated. The etiology is unclear. At the present time she will be followed. They will be reassessed. Hopefully she can continue her statin therapy which is beneficial with respect to her cardiovascular risk profile. Comment: The above has been discussed and reviewed with the patient and Dr. Fontaine. This note was generated with [employer] dictation software. It may contain incorrect words, spelling, and punctuation that were not noted in checking the note before signing.
[2018-12-28 15:31] LABS: Bedside Glucose 210 mg/dL (70-110)
[2018-12-28 15:31] LABS: Bedside Glucose 228 mg/dL (70-110)
--- NOTE | 2018-12-28 15:43 | CHAPLAIN ---
Type of Pastoral Visit _x__ Initial Visit ___ Follow-up Visit ___ On-call Visit ___ General Patient Visit ___ Spiritual Assessment ___ Family Conference ___ Bereavement ___ Rapid Response ___ Code Blue ___ Other (describe below) Pastoral Care Referral From _x__ Patient ___ Family ___ Nurse ___ Physician ___ Straw Hat Brim Cutter Operator ___ Tube Operator ___ Other (describe below) Sacrament/Intervention _x__ Active listening ___ Anointing ___ Yazdanism ___ Bereavement ___ Communion _x__ Bella exploration ___ ___ Life review _x__ Prayer ___ Reconciliation ___ Sacrament of Sick _x__ Supportive presence ___ Wedding ___ Other (describe below) Pastoral Comments
[2018-12-28] MEDS: traZODone 100 MG Tablet PO (21:55)
[2018-12-28] MEDS: Pravastatin 80 MG Tablet PO (21:55)
[2018-12-28 22:06] LABS: Bedside Glucose 307 mg/dL (70-110)
[2018-12-29] VITALS (19 sets, daily range): BP systolic 81–122; BP diastolic 49–67; PULSE 67–77; RESP 16–23; TEMP 36.5–36.7; O2SAT 92–99
--- NOTE | 2018-12-29 04:00 | EKG12_ITS ---
Test Reason : AM Blood Pressure : / mmHG Vent. Rate : 071 BPM Atrial Rate : 071 BPM P-R Int : 190 ms QRS Dur : 092 ms QT Int : 432 ms P-R-T Axes : -07 048 036 degrees QTc Int : 469 ms Normal sinus rhythm Nonspecific ST abnormality Abnormal ECG Confirmed by MICAH DAVIS, MARIAN ([id number]), graphics editor ARNOLD MILNER ([id number]) on 01/03/2019 12:37:24 PM Referred By: Confirmed By:MARIAN OBRIEN MD
[2018-12-29] MEDS: Acetaminophen 325 MG Tablet 650 MG PO (05:14)
[2018-12-29] MEDS: 0.9% NaCl Peripheral Flush Adult/Peds IV ×2 (05:20→11:12)
[2018-12-29 05:50] LABS: AST(SGOT) 76 U/L (15-37); Alanine Aminotransfer ALT/SGPT 167 U/L (13-56); Albumin, Serum 2.5 g/dL (3.2-5.0); Alkaline Phosphatase 118 U/L (45-117); Anion Gap 7 (5-15); BUN 26 mg/dL (7-18); BUN/Creat Ratio 28.6 RATIO (10-20); Bilirubin, Direct 0.31 mg/dL (0.00-0.30); Calcium,Total 8.3 mg/dL (8.5-10.1); Chloride 106 mmol/L (98-107); Creatinine, Serum 0.91 mg/dL (0.55-1.02); EST Glomerular Filtration Rate 66 mL/min (>60); Est Glom Filt Rate - Afr Amer 80 mL/min (>60); Estimated Creatinine Clearance 50.05 ml/min; Globulin 4.1 g/dL (2.2-4.2); Glucose 253 mg/dL (74-106); Potassium 3.9 mmol/L (3.5-5.1); Protein, Total 6.6 g/dL (6.4-8.2); Sodium Level 138 mmol/L (136-145)
--- NOTE | 2018-12-29 05:55 | EKG12_ITS ---
Test Reason : CHEST PAIN Blood Pressure : / mmHG Vent. Rate : 102 BPM Atrial Rate : 102 BPM P-R Int : 196 ms QRS Dur : 084 ms QT Int : 376 ms P-R-T Axes : 061 060 017 degrees QTc Int : 490 ms Sinus tachycardia Anteroseptal infarct , age undetermined T wave abnormality, consider inferolateral ischemia Abnormal ECG Confirmed by MICAH DAVIS, MARIAN ([id number]), international editorial producer ARNOLD MILNER ([id number]) on 12/29/2018 1:55:55 PM Referred By: Sheela OBRIEN Confirmed By:MARIAN OBRIEN MD
[2018-12-29] MEDS: Insulin Lispro 100 UNIT/ML INSULN.PEN SC ×4 (07:36→23:14)
[2018-12-29] MEDS: TICAGRELOR 90 MG TABLET PO ×2 (07:37→23:11)
[2018-12-29] MEDS: busPIRone 5 MG Tablet 10 MG PO (07:37)
[2018-12-29] MEDS: Glimepiride 2 MG Tablet PO (07:37)
[2018-12-29] MEDS: Aspirin E.C. 81 MG Tablet PO (07:37)
[2018-12-29] MEDS: FLUoxetine 20 MG Capsule 40 MG PO (07:38)
[2018-12-29] MEDS: Lisinopril 5 MG Tablet PO (07:38)
[2018-12-29] MEDS: Atenolol 50 MG Tablet PO (07:38)
[2018-12-29] MEDS: Isosorbide Mononitrate 30 MG Tablet PO (07:38)
--- NOTE | 2018-12-29 08:13 | PCM.PN.HOSP ---
Patient Problems: Active and Suspected Problems (Last Updated 12/28/18 @ 11:25 by Kaitlin Pendleton) NSTEMI (non-ST elevated myocardial infarction) (Acute) Unstable angina (Acute) Chest pain (Acute) Subjective: Patient is short of breath and is intermittent going on for last 3 months. She gets more short of breath on exertion. Denies chest pain and is resolved. No abdominal pain. Echo and right upper quadrant sonogram findings discussed with the patient. She had cholecystectomy about 40 years ago. Vitals/I&O's: Vital Signs Temp Pulse Resp BP Pulse Ox 97.9 F 74 23 H 122/63 H 98 12/29/18 05:00 12/29/18 06:00 12/29/18 06:00 12/29/18 06:00 12/29/18 06:53 Oxygen Flow Rate (L/min) 3 Oxygen Delivery Method Nasal Cannula Weight: 248 lb 14.43 oz Body Mass Index (BMI) 44.2 Intake and Output for Last 24 Hours 12/27/18 12/28/18 12/29/18 23:59 23:59 23:59 Intake Total 1335 / 1335 300 / 300 Output Total 1100 / 1100 200 / 200 Balance 235 / 235 100 / 100 General: Alert, Oriented x3, Cooperative HEENT: Atraumatic, PERRLA, EOMI, Normocephalic Oral: No Gingival or Mucosal Lesions/ Ulcerations Neck: Supple, No JVD, Negative Carotid Bruits Lungs: Clear to auscultation, Normal air movement, No rhonchi, No wheeze, No rales Cardiovascular: Regular rate, Regular Rhythm, Normal S1, Normal S2, No murmurs Abdomen: Bowel Sounds Present, Soft, Non Tender, Non-Distended Extremities: Capillary Refill Less than 3 Seconds, Edema Skin: No rashes, No breakdown Musculoskeletal: No Tenderness to Palpation of Joints or Extremities, Arthritic Changes Neurological: Cranial nerves II-XII grossly intact Psych/Mental Status: Normal Affect, Appropriate Laboratory Results 12/28/18 04:45: Sodium 137, Potassium 3.7, Chloride 104, Carbon Dioxide 22.0, Anion Gap 11, BUN 19 H, Creatinine 0.74, Estim Creat Clear Calc 64.37, Est GFR (MDRD) Af Amer 101, Est GFR (MDRD) Non-Af 84, BUN/Creatinine Ratio 25.6 H, Glucose 244 H, Calcium 8.4 L 12/28/18 04:45: WBC 8.2, RBC 3.96 L, Hgb 11.6 L, Hct 34.4 L, MCV 86.9, MCH 29.3, MCHC 33.7, RDW 14.1, RDW Differential 44.5 H, Plt Count 175, MPV 10.0, Immature Gran % (Auto) 0.100, Neut % (Auto) 77.8 H, Lymph % (Auto) 14.6 L, [place] % (Auto) 6.8, Eos % (Auto) 0.5, Baso % (Auto) 0.2, Absolute Neuts (auto) 6.6, Absolute Lymphs (auto) 1.23, Total Counted Not Reportable 12/28/18 04:45: Total Bilirubin 1.00, Direct Bilirubin 0.19, AST 106 H, ALT 174 H, Alkaline Phosphatase 110, Total Protein 6.7, Albumin 2.9 L, Globulin 3.8 12/28/18 08:14: POC Glucose 261 H 12/28/18 13:13: POC Glucose 228 H 12/28/18 15:27: POC Glucose 210 H 12/28/18 21:52: POC Glucose 307 H 12/29/18 05:10: Sodium 138, Potassium 3.9, Chloride 106, Carbon Dioxide 25.0, Anion Gap 7, BUN 26 H, Creatinine 0.91, Estim Creat Clear Calc 50.05, Est GFR (MDRD) Af Amer 80, Est GFR (MDRD) Non-Af 66, BUN/Creatinine Ratio 28.6 H, Glucose 253 H, Calcium 8.3 L, Total Bilirubin 0.60, Direct Bilirubin 0.31 H, AST 76 H, ALT 167 H, Alkaline Phosphatase 118 H, Total Protein 6.6, Albumin 2.5 L, Globulin 4.1 Current Medications Acetaminophen (Tylenol) 650 mg PO Q6H PRN PRN PRN Reason: Fever, headache, pain Last Admin: 12/29/18 05:14 Dose: 650 mg [facility] Last Admin: 12/29/18 07:37 Dose: 81 mg Atenolol (Tenormin (Beta Shane)) 50 mg PO DAILY [facility] Last Admin: 12/29/18 07:38 Dose: 50 mg Atropine Sulfate () 0.5 mg IV UD PRN PRN Reason: HR <50 bpm Buspirone HCl (Buspar) 10 mg PO BID [facility] Last Admin: 12/29/18 07:37 Dose: 10 mg Fluoxetine HCl (Prozac) 40 mg PO DAILY [facility] Last Admin: 12/29/18 07:38 Dose: 40 mg Heparin Sodium (Porcine) (Heparin Na) 0 unit IV UD PRN; Protocol Sodium Chloride () 1,000 mls @ 15 mls/hr IV .Q48H [facility] Last Admin: 12/28/18 06:14 Dose: Not Given Sodium Chloride () 500 mls @ 999 mls/hr IV .Q31M PRN PRN Reason: VASO-VAGAL PROTOCOL Insulin Human Lispro (Humalog Kwikpen (Bkc)) 0 unit SC ACHS [facility]; Protocol Last Admin: 12/29/18 07:36 Dose: 3 u Isosorbide Mononitrate (Imdur) 30 mg PO DAILY [facility] Last Admin: 12/29/18 07:38 Dose: 30 mg Lisinopril (Zestril) 5 mg PO DAILY [facility] Last Admin: 12/29/18 07:38 Dose: 5 mg Magnesium Hydroxide (Milk Of Magnesia) 30 ml PO DAILY PRN PRN Reason: Constipation Morphine Sulfate () 1 mg IV Q3H PRN PRN PRN Reason: SEVERE PAIN (6-10/10) Ondansetron HCl (Zofran) 4 mg IV Q6H PRN PRN PRN Reason: NAUSEA/VOMITING Last Admin: 12/28/18 17:45 Dose: 4 mg Pravastatin Sodium (Pravachol) 80 mg PO QHS [facility] Last Admin: 12/28/18 21:55 Dose: 80 mg Sodium Chloride () 5 - 15 ml IV UD PRN PRN Reason: SALINE FLUSH Last Admin: 12/29/18 05:20 Dose: 10 ml Ticagrelor (Brilinta) 90 mg PO BID [facility] Last Admin: 12/29/18 07:37 Dose: 90 mg Trazodone HCl (Desyrel) 100 mg PO QHS [facility] Last Admin: 12/28/18 21:55 Dose: 100 mg Medical Necessity - Tobacco Use Smoking Status: Former smoker Assessment/Plan All Active Problems (Last Updated 12/28/18 @ 11:25 by Kaitlin Pendleton) S/P drug eluting coronary stent placement (Acute ~12/28/18) NSTEMI (non-ST elevated myocardial infarction) (Acute) Unstable angina (Acute) Chest pain (Acute) This is a 63 years old female patient presented to the emergency room because of shortness of breath and chest pain, found to have abnormal cardiac enzymes and she is being admitted for evaluation and treatment. Patient had elevated troponins #1 Unstable angina/non-STEMI: The patient is being admitted in ICU after PCI of single vessel coronary artery, proximal and mid LAD. EKG revealed nonspecific ST-T abnormality in the anterolateral leads and subsequent loss of R wave in precordial lead V3.. It did not meet criteria for STEMI. Subsequently, patient was started on IV heparin drip, nitroglycerin drip, loading dose of Brilinta and then cardiac cath. 2D echo is being ordered. On aspirin, Brilinta, atenolol and lisinopril. On pravastatin. Echo reviewed with the patient. EF 65% with mid anteroseptal and anterior apex hypokinetic. trivial MR, TR. Diastolic function indeterminate. #2 Sinus tachycardia: Patient mentioned that she had a history of tachycardia and palpitation, has been on propanolol.TSH 2.45. #3 type 2 diabetes mellitus: ADA diet, Accu-Cheks, insulin sliding scale, continue home doses of Lantus, continue glimepiride, hold metformin. #4 hypertension: Blood pressure was elevated but controlled now, continue atenolol and lisinopril, hold HCTZ. #5 depression: Continue trazodone. #6 hyperlipidemia: Continue statins. 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 No abdominal pain or tenderness. In fact, she does not know previous history of elevated transaminases or hepatobiliary issues except cholecystectomy in the past. AST 159 H, ALT 209 H, Alkaline Phosphatase 126 H. There is no previous imaging of liver/hepatobiliary system in our EMR. Repeat LFT shows improvement in transaminases. Right upper quadrant sonogram reported as Enlarged fatty liver. Trace perihepatic fluid. Status post cholecystectomy. Mild prominence of the common bile duct; 8 mm. DVT prophylaxis: Resume after 24 hours of PCI. Patient has arterial sheath in the right radial artery. Active Medications Acetaminophen (Tylenol) 650 mg PO Q6H PRN PRN PRN Reason: Fever, headache, pain [facility]rin) [facility] Atenolol (Tenormin (Beta Shane)) 50 mg PO DAILY [facility] Atropine Sulfate () 0.5 mg IV UD PRN PRN Reason: HR <50 bpm Buspirone HCl (Buspar) 10 mg PO BID [facility] Last Admin: 12/27/18 23:45 Dose: 10 mg Fluoxetine HCl (Prozac) 40 mg PO DAILY [facility] Glimepiride (Amaryl) [facility] Last Admin: 12/27/18 23:45 Dose: 2 mg Heparin Sodium (Porcine) (Heparin Na) 0 unit IV UD PRN; Protocol Heparin Sodium/Dextrose () 25,000 units in 250 mls @ 10 mls/hr IV .Q25H [facility]; Protocol Last Admin: 12/27/18 21:19 Dose: 10 mls/hr Sodium Chloride () 1,000 mls @ 15 mls/hr IV .Q48H [facility] Last Admin: 12/28/18 06:14 Dose: Not Given Sodium Chloride () 1,000 mls @ 100 mls/hr IV .Q10H [facility] Stop: 12/28/18 13:56 Last Admin: 12/28/18 06:13 Dose: 100 mls/hr Sodium Chloride () 500 mls @ 999 mls/hr IV .Q31M PRN PRN Reason: VASO-VAGAL PROTOCOL Insulin Human Lispro (Humalog Kwikpen (Bkc)) 0 unit SC ACHS [facility]; Protocol Last Admin: 12/27/18 23:56 Dose: 3 u Isosorbide Mononitrate (Imdur) 30 mg PO DAILY [facility] Last Admin: 12/28/18 05:29 Dose: 30 mg Lisinopril (Zestril) 5 mg PO DAILY [facility] Magnesium Hydroxide (Milk Of Magnesia) 30 ml PO DAILY PRN PRN Reason: Constipation Morphine Sulfate () 1 mg IV Q3H PRN PRN PRN Reason: SEVERE PAIN (6-10/10) Ondansetron HCl (Zofran) 4 mg IV Q6H PRN PRN PRN Reason: NAUSEA/VOMITING Last Admin: 12/28/18 04:21 Dose: 4 mg Pravastatin Sodium (Pravachol) 80 mg PO QHS [facility] Sodium Chloride () 5 - 15 ml IV UD PRN PRN Reason: SALINE FLUSH Last Admin: 12/28/18 04:21 Dose: 10 ml Ticagrelor (Brilinta) 90 mg PO BID [facility] Trazodone HCl (Desyrel) 100 mg PO QHS [facility] Last Admin: 12/27/18 23:46 Dose: 100 mg Laboratory Results 12/28/18 04:45: Sodium 137, Potassium 3.7, Chloride 104, Carbon Dioxide 22.0, Anion Gap 11, BUN 19 H, Creatinine 0.74, Estim Creat Clear Calc 64.37, Est GFR (MDRD) Af Amer 101, Est GFR (MDRD) Non-Af 84, BUN/Creatinine Ratio 25.6 H, Glucose 244 H, Calcium 8.4 L 12/28/18 04:45: WBC 8.2, RBC 3.96 L, Hgb 11.6 L, Hct 34.4 L, MCV 86.9, MCH 29.3, MCHC 33.7, RDW 14.1, RDW Differential 44.5 H, Plt Count 175, MPV 10.0, Immature Gran % (Auto) 0.100, Neut % (Auto) 77.8 H, Lymph % (Auto) 14.6 L, [place] % (Auto) 6.8, Eos % (Auto) 0.5, Baso % (Auto) 0.2, Absolute Neuts (auto) 6.6, Absolute Lymphs (auto) 1.23, Total Counted Not Reportable 12/28/18 04:45: Total Bilirubin 1.00, Direct Bilirubin 0.19, AST 106 H, ALT 174 H, Alkaline Phosphatase 110, Total Protein 6.7, Albumin 2.9 L, Globulin 3.8 12/28/18 13:13: POC Glucose 228 H 12/28/18 15:27: POC Glucose 210 H 12/28/18 21:52: POC Glucose 307 H 12/29/18 05:10: Sodium 138, Potassium 3.9, Chloride 106, Carbon Dioxide 25.0, Anion Gap 7, BUN 26 H, Creatinine 0.91, Estim Creat Clear Calc 50.05, Est GFR (MDRD) Af Amer 80, Est GFR (MDRD) Non-Af 66, BUN/Creatinine Ratio 28.6 H, Glucose 253 H, Calcium 8.3 L, Total Bilirubin 0.60, Direct Bilirubin 0.31 H, AST 76 H, ALT 167 H, Alkaline Phosphatase 118 H, Total Protein 6.6, Albumin 2.5 L, Globulin 4.1 Laboratory Results 12/27/18 19:10: WBC 7.1, RBC 4.75, Hgb 14.0, Hct 41.6, MCV 87.6, MCH 29.5, MCHC 33.7, RDW 14.1, RDW Differential 44.8 H, Plt Count 197, MPV 10.5, Immature Gran % (Auto) 0.100, Neut % (Auto) 60.5, Lymph % (Auto) 29.9, [place] % (Auto) 7.0, Eos % (Auto) 2.1, Baso % (Auto) 0.4, Absolute Neuts (auto) 4.3, Absolute Lymphs (auto) 2.13, Total Counted Not Reportable 12/27/18 19:10: PT 13.6, INR 1.1, APTT 24.1 12/27/18 19:10: Sodium 137, Potassium 4.5, Chloride 105, Carbon Dioxide 26.0, Anion Gap 6, BUN 25 H, Creatinine 1.01, Estim Creat Clear Calc 47.16, Est GFR (MDRD) Af Amer 71, Est GFR (MDRD) Non-Af 59 L, BUN/Creatinine Ratio 24.8 H, Glucose 223 H, Calcium 8.9, Troponin I 0.200 H 12/27/18 23:55: POC Glucose 251 H 12/28/18 00:20: Troponin I 0.161 H, TSH 2.45 12/28/18 00:20: Total Bilirubin 0.80, Direct Bilirubin 0.19, AST 159 H, ALT 209 H, Alkaline Phosphatase 126 H, Total Protein 7.2, Albumin 3.2, Globulin 4.0 12/28/18 02:52: Activated Clotting Time 147 H 12/28/18 03:50: Activated Clotting Time 290 H 12/28/18 04:45: Troponin I 0.125 H, Triglycerides 182, Cholesterol 162, LDL Cholesterol 91, VLDL Cholesterol 36, HDL Cholesterol 35 L 12/28/18 04:45: APTT 71.8 H 12/28/18 04:45: WBC 8.2, RBC 3.96 L, Hgb 11.6 L, Hct 34.4 L, MCV 86.9, MCH 29.3, MCHC 33.7, RDW 14.1, RDW Differential 44.5 H, Plt Count 175, MPV 10.0 Clinical Impression(s) from Imaging Studies Chest X-Ray 12/27/18 19:27 IMPRESSION: Mild cardiomegaly. Remainder is within normal limits. Electronically Signed: Tino Deng DO at 19:49 EDT Tel , Service support , Abdomen Ultrasound 12/28/18 08:37 IMPRESSION: Enlarged fatty liver. Trace perihepatic fluid. Mild cortical thinning of the right kidney. Status post cholecystectomy. Mild prominence of the common bile duct. Code Visit Inpatient E&M: 62752 Subs Hosp L3
--- NOTE | 2018-12-29 08:33 | PN_ITS ---
Patient Problems: Active and Suspected Problems (Last Updated 12/28/18 @ 11:25 by Kaitlin Pendleton) NSTEMI (non-ST elevated myocardial infarction) (Acute) Unstable angina (Acute) Chest pain (Acute) Subjective: Patient is short of breath and is intermittent going on for last 3 months. She gets more short of breath on exertion. Denies chest pain and is resolved. No abdominal pain. Echo and right upper quadrant sonogram findings discussed with the patient. She had cholecystectomy about 40 years ago. Vitals/I&O's: Vital Signs Temp Pulse Resp BP Pulse Ox 97.9 F 74 23 H 122/63 H 98 12/29/18 05:00 12/29/18 06:00 12/29/18 06:00 12/29/18 06:00 12/29/18 06:53 Oxygen Flow Rate (L/min) 3 Oxygen Delivery Method Nasal Cannula Weight: 248 lb 14.43 oz Body Mass Index (BMI) 44.2 Intake and Output for Last 24 Hours 12/27/18 12/28/18 12/29/18 23:59 23:59 23:59 Intake Total 1335 / 1335 300 / 300 Output Total 1100 / 1100 200 / 200 Balance 235 / 235 100 / 100 General: Alert, Oriented x3, Cooperative HEENT: Atraumatic, PERRLA, EOMI, Normocephalic Oral: No Gingival or Mucosal Lesions/ Ulcerations Neck: Supple, No JVD, Negative Carotid Bruits Lungs: Clear to auscultation, Normal air movement, No rhonchi, No wheeze, No rales Cardiovascular: Regular rate, Regular Rhythm, Normal S1, Normal S2, No murmurs Abdomen: Bowel Sounds Present, Soft, Non Tender, Non-Distended Extremities: Capillary Refill Less than 3 Seconds, Edema Skin: No rashes, No breakdown Musculoskeletal: No Tenderness to Palpation of Joints or Extremities, Arthritic Changes Neurological: Cranial nerves II-XII grossly intact Psych/Mental Status: Normal Affect, Appropriate Laboratory Results 12/28/18 04:45: Sodium 137, Potassium 3.7, Chloride 104, Carbon Dioxide 22.0, Anion Gap 11, BUN 19 H, Creatinine 0.74, Estim Creat Clear Calc 64.37, Est GFR (MDRD) Af Amer 101, Est GFR (MDRD) Non-Af 84, BUN/Creatinine Ratio 25.6 H, Glucose 244 H, Calcium 8.4 L 12/28/18 04:45: WBC 8.2, RBC 3.96 L, Hgb 11.6 L, Hct 34.4 L, MCV 86.9, MCH 29.3, MCHC 33.7, RDW 14.1, RDW Differential 44.5 H, Plt Count 175, MPV 10.0, Immature Gran % (Auto) 0.100, Neut % (Auto) 77.8 H, Lymph % (Auto) 14.6 L, [place] % (Auto) 6.8, Eos % (Auto) 0.5, Baso % (Auto) 0.2, Absolute Neuts (auto) 6.6, Absolute Lymphs (auto) 1.23, Total Counted Not Reportable 12/28/18 04:45: Total Bilirubin 1.00, Direct Bilirubin 0.19, AST 106 H, ALT 174 H, Alkaline Phosphatase 110, Total Protein 6.7, Albumin 2.9 L, Globulin 3.8 12/28/18 08:14: POC Glucose 261 H 12/28/18 13:13: POC Glucose 228 H 12/28/18 15:27: POC Glucose 210 H 12/28/18 21:52: POC Glucose 307 H 12/29/18 05:10: Sodium 138, Potassium 3.9, Chloride 106, Carbon Dioxide 25.0, Anion Gap 7, BUN 26 H, Creatinine 0.91, Estim Creat Clear Calc 50.05, Est GFR (MDRD) Af Amer 80, Est GFR (MDRD) Non-Af 66, BUN/Creatinine Ratio 28.6 H, Glucose 253 H, Calcium 8.3 L, Total Bilirubin 0.60, Direct Bilirubin 0.31 H, AST 76 H, ALT 167 H, Alkaline Phosphatase 118 H, Total Protein 6.6, Albumin 2.5 L, Globulin 4.1 Current Medications Acetaminophen (Tylenol) 650 mg PO Q6H PRN PRN PRN Reason: Fever, headache, pain Last Admin: 12/29/18 05:14 Dose: 650 mg [facility] Last Admin: 12/29/18 07:37 Dose: 81 mg Atenolol (Tenormin (Beta Shane)) 50 mg PO DAILY [facility] Last Admin: 12/29/18 07:38 Dose: 50 mg Atropine Sulfate () 0.5 mg IV UD PRN PRN Reason: HR <50 bpm Buspirone HCl (Buspar) 10 mg PO BID [facility] Last Admin: 12/29/18 07:37 Dose: 10 mg Fluoxetine HCl (Prozac) 40 mg PO DAILY [facility] Last Admin: 12/29/18 07:38 Dose: 40 mg Heparin Sodium (Porcine) (Heparin Na) 0 unit IV UD PRN; Protocol Sodium Chloride () 1,000 mls @ 15 mls/hr IV .Q48H [facility] Last Admin: 12/28/18 06:14 Dose: Not Given Sodium Chloride () 500 mls @ 999 mls/hr IV .Q31M PRN PRN Reason: VASO-VAGAL PROTOCOL Insulin Human Lispro (Humalog Kwikpen (Bkc)) 0 unit SC ACHS [facility]; Protocol Last Admin: 12/29/18 07:36 Dose: 3 u Isosorbide Mononitrate (Imdur) 30 mg PO DAILY [facility] Last Admin: 12/29/18 07:38 Dose: 30 mg Lisinopril (Zestril) 5 mg PO DAILY [facility] Last Admin: 12/29/18 07:38 Dose: 5 mg Magnesium Hydroxide (Milk Of Magnesia) 30 ml PO DAILY PRN PRN Reason: Constipation Morphine Sulfate () 1 mg IV Q3H PRN PRN PRN Reason: SEVERE PAIN (6-10/10) Ondansetron HCl (Zofran) 4 mg IV Q6H PRN PRN PRN Reason: NAUSEA/VOMITING Last Admin: 12/28/18 17:45 Dose: 4 mg Pravastatin Sodium (Pravachol) 80 mg PO QHS [facility] Last Admin: 12/28/18 21:55 Dose: 80 mg Sodium Chloride () 5 - 15 ml IV UD PRN PRN Reason: SALINE FLUSH Last Admin: 12/29/18 05:20 Dose: 10 ml Ticagrelor (Brilinta) 90 mg PO BID [facility] Last Admin: 12/29/18 07:37 Dose: 90 mg Trazodone HCl (Desyrel) 100 mg PO QHS [facility] Last Admin: 12/28/18 21:55 Dose: 100 mg Medical Necessity - Tobacco Use Smoking Status: Former smoker Assessment/Plan All Active Problems (Last Updated 12/28/18 @ 11:25 by Kaitlin Pendleton) S/P drug eluting coronary stent placement (Acute ~12/28/18) NSTEMI (non-ST elevated myocardial infarction) (Acute) Unstable angina (Acute) Chest pain (Acute) This is a 63 years old female patient presented to the emergency room because of shortness of breath and chest pain, found to have abnormal cardiac enzymes and she is being admitted for evaluation and treatment. Patient had elevated troponins #1 Unstable angina/non-STEMI: The patient is being admitted in ICU after PCI of single vessel coronary artery, proximal and mid LAD. EKG revealed nonspecific ST-T abnormality in the anterolateral leads and subsequent loss of R wave in precordial lead V3.. It did not meet criteria for STEMI. Subsequently, patient was started on IV heparin drip, nitroglycerin drip, loading dose of Brilinta and then cardiac cath. 2D echo is being ordered. On aspirin, Brilinta, atenolol and lisinopril. On pravastatin. Echo reviewed with the patient. EF 65% with mid anteroseptal and anterior apex hypokinetic. trivial MR, TR. Diastolic function indeterminate. #2 Sinus tachycardia: Patient mentioned that she had a history of tachycardia and palpitation, has been on propanolol.TSH 2.45. #3 type 2 diabetes mellitus: ADA diet, Accu-Cheks, insulin sliding scale, continue home doses of Lantus, continue glimepiride, hold metformin. #4 hypertension: Blood pressure was elevated but controlled now, continue atenolol and lisinopril, hold HCTZ. #5 depression: Continue trazodone. #6 hyperlipidemia: Continue statins. 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 No abdominal pain or tenderness. In fact, she does not know previous history of elevated transaminases or hepatobiliary issues except cholecystectomy in the past. AST 159 H, ALT 209 H, Alkaline Phosphatase 126 H. There is no previous imaging of liver/hepatobiliary system in our EMR. Repeat LFT shows improvement in transaminases. Right upper quadrant sonogram reported as Enlarged fatty liver. Trace perihepatic fluid. Status post cholecystectomy. Mild prominence of the common bile duct; 8 mm. DVT prophylaxis: Resume after 24 hours of PCI. Patient has arterial sheath in the right radial artery. Active Medications Acetaminophen (Tylenol) 650 mg PO Q6H PRN PRN PRN Reason: Fever, headache, pain [facility] Atenolol (Tenormin (Beta Shane)) 50 mg PO DAILY [facility] Atropine Sulfate () 0.5 mg IV UD PRN PRN Reason: HR <50 bpm Buspirone HCl (Buspar) 10 mg PO BID [facility] Last Admin: 12/27/18 23:45 Dose: 10 mg Fluoxetine HCl (Prozac) 40 mg PO DAILY [facility] (Amaryl) [facility] Last Admin: 12/27/18 23:45 Dose: 2 mg Heparin Sodium (Porcine) (Heparin Na) 0 unit IV UD PRN; Protocol Heparin Sodium/Dextrose () 25,000 units in 250 mls @ 10 mls/hr IV .Q25H [facility]; Protocol Last Admin: 12/27/18 21:19 Dose: 10 mls/hr Sodium Chloride () 1,000 mls @ 15 mls/hr IV .Q48H [facility] Last Admin: 12/28/18 06:14 Dose: Not Given Sodium Chloride () 1,000 mls @ 100 mls/hr IV .Q10H [facility] Stop: 12/28/18 13:56 Last Admin: 12/28/18 06:13 Dose: 100 mls/hr Sodium Chloride () 500 mls @ 999 mls/hr IV .Q31M PRN PRN Reason: VASO-VAGAL PROTOCOL Insulin Human Lispro (Humalog Kwikpen (Bkc)) 0 unit SC ACHS [facility]; Protocol Last Admin: 12/27/18 23:56 Dose: 3 u Isosorbide Mononitrate (Imdur) 30 mg PO DAILY [facility] Last Admin: 12/28/18 05:29 Dose: 30 mg Lisinopril (Zestril) 5 mg PO DAILY [facility] Magnesium Hydroxide (Milk Of Magnesia) 30 ml PO DAILY PRN PRN Reason: Constipation Morphine Sulfate () 1 mg IV Q3H PRN PRN PRN Reason: SEVERE PAIN (6-10/10) Ondansetron HCl (Zofran) 4 mg IV Q6H PRN PRN PRN Reason: NAUSEA/VOMITING Last Admin: 12/28/18 04:21 Dose: 4 mg Pravastatin Sodium (Pravachol) 80 mg PO QHS [facility] Sodium Chloride () 5 - 15 ml IV UD PRN PRN Reason: SALINE FLUSH Last Admin: 12/28/18 04:21 Dose: 10 ml Ticagrelor (Brilinta) 90 mg PO BID [facility] Trazodone HCl (Desyrel) 100 mg PO QHS [facility] Last Admin: 12/27/18 23:46 Dose: 100 mg Laboratory Results 12/28/18 04:45: Sodium 137, Potassium 3.7, Chloride 104, Carbon Dioxide 22.0, Anion Gap 11, BUN 19 H, Creatinine 0.74, Estim Creat Clear Calc 64.37, Est GFR (MDRD) Af Amer 101, Est GFR (MDRD) Non-Af 84, BUN/Creatinine Ratio 25.6 H, Glucose 244 H, Calcium 8.4 L 12/28/18 04:45: WBC 8.2, RBC 3.96 L, Hgb 11.6 L, Hct 34.4 L, MCV 86.9, MCH 29.3, MCHC 33.7, RDW 14.1, RDW Differential 44.5 H, Plt Count 175, MPV 10.0, Immature Gran % (Auto) 0.100, Neut % (Auto) 77.8 H, Lymph % (Auto) 14.6 L, [place] % (Auto) 6.8, Eos % (Auto) 0.5, Baso % (Auto) 0.2, Absolute Neuts (auto) 6.6, Absolute Lymphs (auto) 1.23, Total Counted Not Reportable 12/28/18 04:45: Total Bilirubin 1.00, Direct Bilirubin 0.19, AST 106 H, ALT 174 H, Alkaline Phosphatase 110, Total Protein 6.7, Albumin 2.9 L, Globulin 3.8 12/28/18 13:13: POC Glucose 228 H 12/28/18 15:27: POC Glucose 210 H 12/28/18 21:52: POC Glucose 307 H 12/29/18 05:10: Sodium 138, Potassium 3.9, Chloride 106, Carbon Dioxide 25.0, Anion Gap 7, BUN 26 H, Creatinine 0.91, Estim Creat Clear Calc 50.05, Est GFR (MDRD) Af Amer 80, Est GFR (MDRD) Non-Af 66, BUN/Creatinine Ratio 28.6 H, Glucose 253 H, Calcium 8.3 L, Total Bilirubin 0.60, Direct Bilirubin 0.31 H, AST 76 H, ALT 167 H, Alkaline Phosphatase 118 H, Total Protein 6.6, Albumin 2.5 L, Globulin 4.1 Laboratory Results 12/27/18 19:10: WBC 7.1, RBC 4.75, Hgb 14.0, Hct 41.6, MCV 87.6, MCH 29.5, MCHC 33.7, RDW 14.1, RDW Differential 44.8 H, Plt Count 197, MPV 10.5, Immature Gran % (Auto) 0.100, Neut % (Auto) 60.5, Lymph % (Auto) 29.9, [place] % (Auto) 7.0, Eos % (Auto) 2.1, Baso % (Auto) 0.4, Absolute Neuts (auto) 4.3, Absolute Lymphs (auto) 2.13, Total Counted Not Reportable 12/27/18 19:10: PT 13.6, INR 1.1, APTT 24.1 12/27/18 19:10: Sodium 137, Potassium 4.5, Chloride 105, Carbon Dioxide 26.0, Anion Gap 6, BUN 25 H, Creatinine 1.01, Estim Creat Clear Calc 47.16, Est GFR (MDRD) Af Amer 71, Est GFR (MDRD) Non-Af 59 L, BUN/Creatinine Ratio 24.8 H, Glucose 223 H, Calcium 8.9, Troponin I 0.200 H 12/27/18 23:55: POC Glucose 251 H 12/28/18 00:20: Troponin I 0.161 H, TSH 2.45 12/28/18 00:20: Total Bilirubin 0.80, Direct Bilirubin 0.19, AST 159 H, ALT 209 H, Alkaline Phosphatase 126 H, Total Protein 7.2, Albumin 3.2, Globulin 4.0 12/28/18 02:52: Activated Clotting Time 147 H 12/28/18 03:50: Activated Clotting Time 290 H 12/28/18 04:45: Troponin I 0.125 H, Triglycerides 182, Cholesterol 162, LDL Cholesterol 91, VLDL Cholesterol 36, HDL Cholesterol 35 L 12/28/18 04:45: APTT 71.8 H 12/28/18 04:45: WBC 8.2, RBC 3.96 L, Hgb 11.6 L, Hct 34.4 L, MCV 86.9, MCH 29.3, MCHC 33.7, RDW 14.1, RDW Differential 44.5 H, Plt Count 175, MPV 10.0 Clinical Impression(s) from Imaging Studies Chest X-Ray 12/27/18 19:27 IMPRESSION: Mild cardiomegaly. Remainder is within normal limits. Electronically Signed: Tino Deng DO at 19:49 EDT Tel , Service support , Abdomen Ultrasound 12/28/18 08:37 IMPRESSION: Enlarged fatty liver. Trace perihepatic fluid. Mild cortical thinning of the right kidney. Status post cholecystectomy. Mild prominence of the common bile duct. Code Visit Inpatient E&M: 59002 Subs Hosp L3
[2018-12-29 08:45] LABS: Absolute Lymphocyte Count 2.41 X10^3/ul (0.83-4.51); Absolute Neutrophil Count 3.8 X10^3/uL (2.0-7.7); Basophil# 0.01 X10^3/uL; Basophil% 0.1 % (0-1); Eosinophil# 0.23 X10^3/uL; Eosinophils% 3.3 % (0-5); Hematocrit 33.1 % (37-47); Hemoglobin 10.7 g/dl (12.0-15.0); Lymphocyte # 2.41 X10^3/ul (4.0); Lymphocyte % 35.1 % (19-41); Mean Corp Hgb Conc 32.3 g/gl (32-36); Mean Corpuscular Hgb 29.1 pg (27.0-32.0); Mean Corpuscular Volume 89.9 fL (81-99); Mean Platelet Vol. 10.6 fl (6.2-12.0); Monocyte# 0.43 X10^3/uL; Monocyte% 6.3 % (0-10); Neutrophil # 3.77 X10^3/uL (2.7-7.7); Neutrophil % 54.9 % (47-70); Platelet Count 168 K/mm3 (150-450); RBC Distribution Width CV 14.6 % (11.6-14.6); RBC Distribution Width SD 47.6 fl (35.1-43.9); Red Blood Count 3.68 M/mm3 (4.2-5.4); White Blood Count 6.9 K/mm3 (4.4-11.0)
[2018-12-29 08:52] LABS: POSITIVE COUNT NO; POSITIVE DIFFERENTIAL NO; POSITIVE MORPHOLOGY NO
--- NOTE | 2018-12-29 10:13 | PN.CARD_ITS ---
Subjectve: The patient is awake and alert. She denies ongoing chest discomfort. She states her main concern is the sensation of shortness of breath and dyspnea especially with activity. She has had minimal ambulation in her room. Objective: Vital Signs Temp Pulse Resp BP Pulse Ox 97.9 F 74 23 H 122/63 H 98 12/29/18 05:00 12/29/18 08:00 12/29/18 06:00 12/29/18 06:00 12/29/18 06:53 Oxygen Flow Rate (L/min) 3 Oxygen Delivery Method Nasal Cannula Weight: 248 lb 14.43 oz Body Mass Index (BMI) 44.2 Intake and Output for Last 24 Hours 12/27/18 12/28/18 12/29/18 23:59 23:59 23:59 Intake Total 1335 / 1335 300 / 300 Output Total 1100 / 1100 200 / 200 Balance 235 / 235 100 / 100 General: Awake, Alert, Oriented x 3, Cooperative, No Acute Distress, Obese HEENT: Atraumatic, Normocephalic, PERRL, EOMI, Sclera Non Icteric Oral: Moist Mucosa Neck: Supple, Good ROM, No JVD Lungs: Clear to auscultation Cardiovascular: Regular Rhythm, Normal S1, Normal S2 Vascular: Normal Radial Pulses Abdomen: Bowel Sounds Present, Soft, Non Tender Extremities: No edema Neurological: No Focal Motor or Sensory Deficit Psych/Mental Status: Appropriate 12/29/18 05:10: Sodium 138, Potassium 3.9, Chloride 106, Carbon Dioxide 25.0, Anion Gap 7, BUN 26 H, Creatinine 0.91, Est GFR (MDRD) Af Amer 80, Est GFR (MDRD) Non-Af 66, BUN/Creatinine Ratio 28.6 H, Glucose 253 H, Calcium 8.3 L, Total Bilirubin 0.60, Direct Bilirubin 0.31 H 12/29/18 08:40: WBC 6.9, RBC 3.68 L, Hgb 10.7 L, Hct 33.1 L, MCV 89.9, MCH 29.1, MCHC 32.3, RDW 14.6, RDW Differential 47.6 H, Plt Count 168, MPV 10.6, Immature Gran % (Auto) 0.300, Neut % (Auto) 54.9, Lymph % (Auto) 35.1, [place] % (Auto) 6.3, Eos % (Auto) 3.3, Baso % (Auto) 0.1, Absolute Neuts (auto) 3.8, Total Counted Not Reportable Rhythm: Sinus rhythm EKG: Sinus rhythm; nonspecific ST/T wave abnormality ECHO: Please see official report Medical Necessity - Tobacco Use Smoking Status: Former smoker Assessment/Plan 1. Unstable angina pectoris/non-ST segment elevation [place] She is now status post diagnostic cardiac catheterization and subsequent LAD PCI. She appears to be improving with respect to her chest discomfort. She continues to have concerns of shortness of breath and dyspnea especially with movement. She will continue medical management with adjustment as needed. She will eventually need outpatient cardiovascular follow-up and cardiac rehabilitation therapy. 2. Hyperlipidemia She can have her lipids reassessed. She will need to continue medical therapy with her statins. 3. Hypertension Her blood pressures are being followed. Her medications can be adjusted as needed. 4. Diabetes mellitus She will need to continue under evaluation care by internal medicine. 5. Elevated hepatic transaminases The patient's hepatic transaminases are elevated. The etiology is unclear. Her repeat labs demonstrated that her AST and ALT appear to be decreasing somewhat. Hopefully she can continue her statin therapy which is beneficial with respect to her cardiovascular risk profile. Overall, at the present time, it was felt the patient could be transferred to the PCU for continued post acute coronary syndrome care and follow-up. This would include medical management with adjustment as needed. She should be assessed by OT/PT to assist with her ability to be up and ambulating. Depending upon her clinical status, with respect to her shortness of breath and dyspnea, if there is no definitive cardiovascular component, then she may need to be further assessed by pulmonology as well. This note was generated with [email or web address] software. It may contain incorrect words, spelling, and punctuation that were not noted in checking the note before signing.
[2018-12-29] MEDS: Enoxaparin 40 MG/0.4 ML Syringe SC (11:11)
[2018-12-29 11:20] LABS: Bedside Glucose 300 mg/dL (70-110)
[2018-12-29 16:40] LABS: Bedside Glucose 226 mg/dL (70-110)
[2018-12-30] VITALS (13 sets, daily range): BP systolic 105–126; BP diastolic 55–75; PULSE 67–72; RESP 18; TEMP 36.5–37.1; O2SAT 95–98
[2018-12-30 00:21] LABS: Bedside Glucose 222 mg/dL (70-110)
[2018-12-30] MEDS: Pravastatin 80 MG Tablet PO ×2 (01:38→21:54)
[2018-12-30 06:28] LABS: Absolute Lymphocyte Count 1.95 X10^3/ul (0.83-4.51); Absolute Neutrophil Count 4.2 X10^3/uL (2.0-7.7); Basophil# 0.02 X10^3/uL; Basophil% 0.3 % (0-1); Eosinophil# 0.28 X10^3/uL; Eosinophils% 4.1 % (0-5); Hematocrit 37.1 % (37-47); Hemoglobin 12.1 g/dl (12.0-15.0); Lymphocyte # 1.95 X10^3/ul (4.0); Lymphocyte % 28.3 % (19-41); Mean Corp Hgb Conc 32.6 g/gl (32-36); Mean Corpuscular Hgb 29.3 pg (27.0-32.0); Mean Corpuscular Volume 89.8 fL (81-99); Mean Platelet Vol. 10.5 fl (6.2-12.0); Monocyte# 0.39 X10^3/uL; Monocyte% 5.7 % (0-10); Neutrophil # 4.24 X10^3/uL (2.7-7.7); Neutrophil % 61.3 % (47-70); POSITIVE COUNT NO; POSITIVE DIFFERENTIAL NO; POSITIVE MORPHOLOGY NO; Platelet Count 208 K/mm3 (150-450); RBC Distribution Width CV 14.5 % (11.6-14.6); RBC Distribution Width SD 47.1 fl (35.1-43.9); Red Blood Count 4.13 M/mm3 (4.2-5.4); White Blood Count 6.9 K/mm3 (4.4-11.0)
[2018-12-30 06:42] LABS: ALB/GLOB Ratio 0.6 RATIO (0.9-2.4); AST(SGOT) 73 U/L (15-37); Alanine Aminotransfer ALT/SGPT 176 U/L (13-56); Albumin, Serum 2.8 g/dL (3.2-5.0); Alkaline Phosphatase 149 U/L (45-117); Anion Gap 8 (5-15); BUN 28 mg/dL (7-18); Calcium,Total 8.8 mg/dL (8.5-10.1); Chloride 106 mmol/L (98-107); EST Glomerular Filtration Rate 67 mL/min (>60); Est Glom Filt Rate - Afr Amer 81 mL/min (>60); Globulin 4.6 g/dL (2.2-4.2); Glucose 204 mg/dL (74-106); Potassium 4.2 mmol/L (3.5-5.1); Protein, Total 7.4 g/dL (6.4-8.2); Sodium Level 137 mmol/L (136-145)
[2018-12-30] MEDS: Insulin Lispro 100 UNIT/ML INSULN.PEN SC ×4 (06:42→21:53)
[2018-12-30 06:51] LABS: Bedside Glucose 177 mg/dL (70-110)
[2018-12-30] MEDS: Aspirin E.C. 81 MG Tablet PO (07:41)
[2018-12-30] MEDS: Atenolol 50 MG Tablet PO (09:18)
[2018-12-30] MEDS: FLUoxetine 20 MG Capsule 40 MG PO (09:18)
[2018-12-30] MEDS: Lisinopril 5 MG Tablet PO (09:18)
[2018-12-30] MEDS: busPIRone 5 MG Tablet 10 MG PO ×2 (09:19→21:53)
[2018-12-30] MEDS: Isosorbide Mononitrate 30 MG Tablet PO (09:19)
[2018-12-30] MEDS: TICAGRELOR 90 MG TABLET PO ×2 (09:19→21:53)
[2018-12-30] MEDS: Acetaminophen 325 MG Tablet 650 MG PO ×2 (09:20→16:45)
[2018-12-30] MEDS: Enoxaparin 40 MG/0.4 ML Syringe SC (09:20)
--- NOTE | 2018-12-30 09:36 | ECHOL_ITS ---
Reason For Study: Dyspnea/SOB Procedure This was a limited 2D transthoracic echocardiogram. The study was technically difficult. Limited views were obtained. Exam performed portable in patient room. Left Ventricle Normal LV size. Segmental dysfunction with preserved ejection fraction (see wall motion). The estimated ejection fraction is 60 %. Mid-anteroseptal : Hypokinetic. Right Ventricle Normal RV size. Normal systolic function. Atria The left atrium is mildly enlarged. Normal right atrium. No doppler evidence for ASD. Bubble contrast study negative for right to left interatrial shunt. Mitral Valve There is no mitral annular calcification. Normal mitral valve. Trivial mitral valve insufficiency. Tricuspid Valve Normal tricuspid valve. Trivial tricuspid valve insufficiency. Unable to estimate RV systolic pressure/pulmonary artery pressure due to technically difficult study. Aortic Valve The aortic valve is not well visualized. Pulmonic Valve The pulmonic valve is not well visualized. Pericardium/Pleural No pericardial effusion. Medication Performed a rapid injection of agitated mix of 9 cc saline and 1cc air to assess for atrial septal defect. MMode/2D Measurements & Calculations LVIDd: 4.2 cm IVSd: 1.3 cm LA dimension: 3.7 cm LVIDs: 2.7 cm LVPWd: 1.2 cm FS: 35.7 % Doppler Measurements & Calculations PA V2 max: 59.5 cm/sec Interpretation Summary The study was technically difficult. Limited views were obtained. Segmental dysfunction with preserved ejection fraction (see wall motion). The estimated ejection fraction is 60 %. The left atrium is mildly enlarged. Trivial mitral valve insufficiency. Trivial tricuspid valve insufficiency. Unable to estimate RV systolic pressure/pulmonary artery pressure due to technically difficult study. Bubble contrast study negative for right to left interatrial shunt. Ordering Physician: Wisam Díaz Referring Physician: Nena Calvillo M.D. Performed By: Valeriy Hopkins RCS
--- NOTE | 2018-12-30 09:41 | PN.CARD_ITS ---
Subjectve: The patient denies any ongoing chest discomfort. She still has shortness of breath and dyspnea especially with exertional activity. She also noted what appeared to be an element of orthopnea. Objective: Vital Signs Temp Pulse Resp BP Pulse Ox 98.2 F 70 18 114/60 95 12/30/18 05:50 12/30/18 06:46 12/30/18 05:50 12/30/18 05:50 12/30/18 08:00 Oxygen Flow Rate (L/min) 2 Oxygen Delivery Method Nasal Cannula Weight: 246 lb 14.684 oz Body Mass Index (BMI) 44.2 Intake and Output for Last 24 Hours 12/28/18 12/29/18 12/30/18 23:59 23:59 23:59 Intake Total 1335 / 1335 760 / 760 360 / 360 Output Total 1100 / 1100 200 / 200 Balance 235 / 235 560 / 560 360 / 360 General: Awake, Alert, Oriented x 3, Cooperative, No Acute Distress, Obese HEENT: Atraumatic, Normocephalic, PERRL, EOMI, Sclera Non Icteric Oral: Moist Mucosa Neck: Supple, Good ROM, No JVD Lungs: Diminished Right Base Cardiovascular: Regular Rhythm, Normal S1, Normal S2 Vascular: No Carotid Bruits Abdomen: Bowel Sounds Present, Soft, Non Tender Extremities: Trace RLE Edema, Trace LLE Edema Neurological: No Focal Motor or Sensory Deficit Psych/Mental Status: Appropriate 12/30/18 05:55: WBC 6.9, RBC 4.13 L, Hgb 12.1, Hct 37.1, MCV 89.8, MCH 29.3, MCHC 32.6, RDW 14.5, RDW Differential 47.1 H, Plt Count 208, MPV 10.5, Immature Gran % (Auto) 0.300, Neut % (Auto) 61.3, Lymph % (Auto) 28.3, [place] % (Auto) 5.7, Eos % (Auto) 4.1, Baso % (Auto) 0.3, Absolute Neuts (auto) 4.2, Total Counted Not Reportable 12/30/18 05:55: Sodium 137, Potassium 4.2, Chloride 106, Carbon Dioxide 23.0, Anion Gap 8, BUN 28 H, Creatinine 0.90, Est GFR (MDRD) Af Amer 81, Est GFR (MDRD) Non-Af 67, BUN/Creatinine Ratio 31.0 H, Glucose 204 H, Calcium 8.8, Total Bilirubin 0.80 Rhythm: Sinus rhythm EKG: Sinus rhythm; septal GA of indeterminate age cannot be excluded; nonspecific ST segment abnormalities; compared to the previous ECG the previous ST/T wave changes appear less prominent at this time Medical Necessity - Tobacco Use Smoking Status: Former smoker Assessment/Plan 1. Unstable angina pectoris/non-ST segment elevation [place] She is now status post diagnostic cardiac catheterization and subsequent LAD PCI. She appears to be improving with respect to her chest discomfort. She continues to have concerns of shortness of breath and dyspnea especially with movement. She will continue medical management with adjustment as needed. She will eventually need outpatient cardiovascular follow-up and cardiac rehabilitation therapy. 2. Hyperlipidemia She can have her lipids reassessed. She will need to continue medical therapy with her statins. 3. Hypertension Her blood pressures are being followed. Her medications can be adjusted as needed. 4. Diabetes mellitus She will need to continue under evaluation care by internal medicine. 5. Elevated hepatic transaminases The patient's hepatic transaminases are elevated. She may need further evaluation for her elevated hepatic transaminases. Her repeat labs demonstrated that her AST and ALT appear to be somewhat improved. Hopefully she can continue her statin therapy which is beneficial with respect to her cardiovascular risk profile. Overall the patient appears to be improved with respect to her chest discomfort. However she is continues with evidence of shortness of breath and dyspnea especially with exertion as well as an element of orthopnea. She will, based upon her history and examination, receive a dose of IV diuretics. If her symptoms improve perhaps is related to volume retention. She will also have an attempt at reassessment with respect to her estimated RV systolic pressures and for any obvious evidence of intracardiac shunting may contribute to symptoms and findings. This will be with limited transthoracic echocardiogram. However it was felt prudent that she be further evaluated by pulmonology as well. The case was discussed with Dr. Garnica. He will be providing pulmonary consultation. Comment: The patient's case has also been discussed with Dr. Fontaine. This note was generated with [employer] software. It may contain incorrect words, spelling, and punctuation that were not noted in checking the note before signing.
[2018-12-30] MEDS: Furosemide 40 MG/4 ML Vial IV ×2 (09:53→21:53)
--- NOTE | 2018-12-30 10:00 | EKG12_ITS ---
Test Reason : AM EKG Blood Pressure : / mmHG Vent. Rate : 073 BPM Atrial Rate : 073 BPM P-R Int : 194 ms QRS Dur : 082 ms QT Int : 410 ms P-R-T Axes : 025 051 032 degrees QTc Int : 451 ms Normal sinus rhythm Septal [place], Age Undetermined Confirmed by MICAH DAVIS, MARIAN ([id number]), general expeditor ARNOLD MILNER ([id number]) on 01/03/2019 12:29:30 PM Referred By: DR NAVARRETE Confirmed By:MARIAN OBRIEN MD
--- NOTE | 2018-12-30 10:18 | PCM.CONS.PUL ---
Reason for Consult Date of Consultation: 12/30/18 Reason for Consultation: Exertional dyspnea History of Present Illness: The patient is a 63-year-old female, with a history as outlined below, who presented to the emergency department on December 27 with complaints of chest pain/heaviness along with shortness of breath. The patient reports that her chest discomfort and shortness of breath primarily occurred this past Thursday. While the patient does report a prior history of mild exertional dyspnea, it certainly became more pronounced in the immediate time period leading up to her hospitalization. She denies a history of COPD or asthma. She does have a remote smoking history, having quit approximately 10 years ago. She does not regularly utilize supplemental oxygen at her baseline. She does report feeling more fatigued and rundown. She denies a history of recent weight gain. On presentation to the emergency department, the patient was noted to be afebrile, tachycardic and hypertensive. Laboratory evaluation revealed no evidence of a leukocytosis. Coagulation profile was within normal limits. Chemistry profile was largely unrevealing. Initial troponin was increased to 0.200. Plain film chest x-ray revealed a mild degree of cardiomegaly. The patient was initially admitted to the progressive care unit over concerns for an acute coronary syndrome. Cardiology was consulted accordingly. The patient was subsequently taken for cardiac catheterization on December 28, which revealed a proximal LAD lesion which required PCI with drug-eluting stent placement. Following the patient's cardiac procedure, her chest discomfort resolved. The patient's hospital course has been complicated by elevated transaminase levels, which appears to be secondary to fatty liver disease noted on abdominal ultrasound from December 28. The patient is currently maintaining appropriate oxygen saturations on 2 L/min. Nevertheless, she continues to report ongoing exertional shortness of breath. Surface echocardiogram dated December 27 revealed segmental LV dysfunction with preserved ejection fraction. Diastolic function was indeterminate. There was no evidence of an atrial septal defect. Right ventricular systolic pressure was unable to be estimated. Past Medical History Past Medical History (Chronic Problems): Chronic Problems (Last Updated 12/28/18 @ 11:25 by Kaitlin Pendleton) Atherosclerotic heart disease of [place] coronary artery without angina pectoris (Chronic) Tachycardia (Chronic) Depression (Chronic) Hyperlipidemia (Chronic) Type 2 diabetes mellitus (Chronic) Hypertension (Chronic) Medical History: Medical History (Last Updated 12/28/18 @ 11:25 by Kaitlin Pendleton) Atherosclerotic heart disease of [place] coronary artery without angina pectoris (Chronic) I25.10 Allergies Sulfa (Sulfonamide Antibiotics) Allergy (Verified 12/27/18 18:36) Hives Home Medications: Ambulatory Orders Medication Instructions Recorded Aspirin [Aspir 81] 81 mg PO DAILY 12/27/18 Atenolol 50 mg PO DAILY 12/27/18 Buspirone HCl 10 mg PO BID 12/27/18 Fluoxetine HCl 40 mg PO DAILY 12/27/18 Glimepiride [Amaryl] 2 mg PO BID 12/27/18 Hydrochlorothiazide [Hctz] 25 mg PO DAILY 12/27/18 Insulin Glargine,Hum.rec.anlog 18 - 23 unit SC QHS 12/27/18 [Lantus] Lisinopril 5 mg PO DAILY 12/27/18 Metformin HCl 500 mg PO TID 12/27/18 Naproxen [Naprosyn] 500 mg PO BID 12/27/18 Pravastatin [Pravachol] 40 mg PO QHS 12/27/18 Propranolol HCl 20 - 40 mg PO TID PRN PRN 12/27/18 traZODone [Desyrel] 100 mg PO QHS 12/27/18 Surgical History: Surgical History (Last Updated 12/28/18 @ 11:25 by Kaitlin Pendleton) S/P drug eluting coronary stent placement (Acute) Onset Date: ~12/28/18 Z95.5 Surgical History: cholecystectomy Psychiatric History: Depression 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 Denies: Cough Gastrointestinal: Denies: Abdominal Pain, Nausea, Vomiting Genitourinary: Denies: Dysuria Musculoskeletal: Denies: Joint Pain, Joint Tenderness Skin: Denies: Rash, Wounds Neurological: Denies: Numbness, Tingling, Focal weakness Psychiatric: Denies: Anxiety, Depression, Homicidal Ideations, Suicidal Ideations Hematologic/ Lymphatic: Reports: Anemia Patient Problems: Active and Suspected Problems (Last Updated 12/28/18 @ 11:25 by Kaitlin Pendleton) NSTEMI (non-ST elevated myocardial infarction) (Acute) Unstable angina (Acute) Chest pain (Acute) Objective: The patient's most recent lab work, culture data and imaging studies have all been personally reviewed. - Physical Exam General: Alert, Oriented x3, Cooperative, No apparent distress, - - Sitting in bedside recliner. Currently saturating in the high 90s on 2 L/min. HEENT: Atraumatic, PERRLA, Normocephalic Oral: No Gingival or Mucosal Lesions/ Ulcerations Neck: Supple, No Nodes, Trachea Midline Lungs: No rhonchi, No wheeze, No rales, Diminished - R>L Cardiovascular: Regular rate, Regular Rhythm, Normal S1, Normal S2, No murmurs Abdomen: Bowel Sounds Present, Soft, Non Tender, Obese Extremities: No clubbing, No cyanosis, Edema Skin: No breakdown Musculoskeletal: No Tenderness to Palpation of Joints or Extremities Lymphatic: No Cervical, Supraclavicular, or Inguinal Adenopathy Neurological: Cranial nerves II-XII grossly intact, Neuro grossly intact Psych/Mental Status: Alert and oriented to time, place, person, mood and affect Vital Signs Temp Pulse Resp BP Pulse Ox 98.2 F 70 18 114/60 95 12/30/18 05:50 12/30/18 06:46 12/30/18 05:50 12/30/18 05:50 12/30/18 08:00 Oxygen Flow Rate (L/min) 2 Oxygen Delivery Method Nasal Cannula Weight: 246 lb 14.684 oz Body Mass Index (BMI) 44.2 Intake and Output for Last 24 Hours 12/28/18 12/29/18 12/30/18 23:59 23:59 23:59 Intake Total 1335 / 1335 760 / 760 360 / 360 Output Total 1100 / 1100 200 / 200 Balance 235 / 235 560 / 560 360 / 360 Laboratory Tests Past 24 Hrs 12/30/18 12/30/18 05:55 05:55 WBC 6.9 RBC 4.13 L Hgb 12.1 Hct 37.1 MCV 89.8 MCH 29.3 MCHC 32.6 RDW 14.5 RDW Differential 47.1 H Plt Count 208 MPV 10.5 Immature Gran % (Auto) 0.300 Neut % (Auto) 61.3 Lymph % (Auto) 28.3 [place] % (Auto) 5.7 Eos % (Auto) 4.1 Baso % (Auto) 0.3 Absolute Neuts (auto) 4.2 Absolute Lymphs (auto) 1.95 Total Counted Not Reportable Sodium 137 Potassium 4.2 Chloride 106 Carbon Dioxide 23.0 Anion Gap 8 BUN 28 H Creatinine 0.90 Estim Creat Clear Calc 50.60 Est GFR (MDRD) Af Amer 81 Est GFR (MDRD) Non-Af 67 BUN/Creatinine Ratio 31.0 H Glucose 204 H Calcium 8.8 Total Bilirubin 0.80 AST 73 H ALT 176 H Alkaline Phosphatase 149 H Total Protein 7.4 Albumin 2.8 L Globulin 4.6 H Albumin/Globulin Ratio 0.6 L POC Glucose 12/30/18 12/29/18 12/29/18 06:40 23:09 16:33 POC Glucose 177 H 222 H 226 H 12/29/18 11:10 POC Glucose 300 H Clinical Impression(s) from Imaging Studies Chest X-Ray 12/27/18 19:27 IMPRESSION: Mild cardiomegaly. Remainder is within normal limits. Electronically Signed: Tino Deng DO at 19:49 EDT Tel , Service support , Abdomen Ultrasound 12/28/18 08:37 IMPRESSION: Enlarged fatty liver. Trace perihepatic fluid. Mild cortical thinning of the right kidney. Status post cholecystectomy. Mild prominence of the common bile duct. Electronically Signed: Sanjay Cabrera DO at 20:50 EDT Tel [phone], Service support , Assessment/Plan All Active Problems (Last Updated 12/28/18 @ 11:25 by Kaitlin Pendleton) S/P drug eluting coronary stent placement (Acute ~12/28/18) NSTEMI (non-ST elevated myocardial infarction) (Acute) Unstable angina (Acute) Chest pain (Acute) RECOMMENDATIONS: 1. Check and document room air oxygen saturation at rest. 2. Perform walking oximetry in the hallway on room air and document patient's saturation. 3. Continue diuretic therapy as ordered. 4. Incentive spirometer has been ordered and should be utilized. Mobilize patient as tolerated. 5. Wean supplemental oxygen to maintain saturations at or above 90%. 6. Check iron studies. IMPRESSIONS: 1. Exertional shortness of breath While the patient does report a mild history of exertional dyspnea, she did report that it significantly worsened in the time leading up to her hospitalization. Her chest pain has resolved following PCI. However, she reports continued exertional shortness of breath. She is currently saturating in the high 90s at rest on 2 L/min. I asked the nurse to remove the patient from supplemental oxygen and check her room air oxygen saturation at rest. I would then proceed with walking the patient in the hallway to evaluate if the patient truly has a hypoxic response to exertion. Her recent surface echocardiogram reported indeterminate diastolic function and was unable to estimate the patient's right-sided heart pressures. While I cannot discount the possibility of underlying diastolic dysfunction or pulmonary hypertension, the patient is currently being treated empirically with diuretic therapy. I would first like to assess her response to diuretic therapy before considering additional work-up. Additionally, for the sake of completeness, I am going to check iron studies, given that the patient had a hemoglobin yesterday noted to be 10.7 g/dL. If the patient is truly hypoxic with exertion and does not respond to diuretic therapy, may need to consider a more detailed look at the patient's lungs by CT scan. In the interim, I would also recommend that she be utilizing an incentive spirometer while she is immobile. Wean supplemental oxygen to maintain saturations at or above 90%. Mobilize patient as tolerated. 2. Non-ST segment elevation [place] The patient is now status post PCI with drug-eluting stent placement to the LAD. Continue current medical management per cardiology recommendations. 3. Elevated transaminase levels Likely secondary to fatty liver disease identified on ultrasound. 4. Obesity/diabetes mellitus/hypertension/hyperlipidemia/depression Complicates care, management, recovery and prognosis. Continue home medications as indicated. Weight loss is advisable. This note was generated with DinnerTimeation software. It may contain incorrect words, spelling, and punctuation that were not noted in checking the note before signing. Code Visit Inpatient E&M: 55614 Init Hosp L3
--- NOTE | 2018-12-30 10:25 | CON.PCM_ITS ---
Reason for Consult Date of Consultation: 12/30/18 Reason for Consultation: Exertional dyspnea History of Present Illness: The patient is a 63-year-old female, with a history as outlined below, who presented to the emergency department on December 27 with complaints of chest pain/heaviness along with shortness of breath. The patient reports that her chest discomfort and shortness of breath primarily occurred this past Thursday. While the patient does report a prior history of mild exertional dyspnea, it certainly became more pronounced in the immediate time period leading up to her hospitalization. She denies a history of COPD or asthma. She does have a remote smoking history, having quit approximately 10 years ago. She does not regularly utilize supplemental oxygen at her baseline. She does report feeling more fatigued and rundown. She denies a history of recent weight gain. On presentation to the emergency department, the patient was noted to be afebrile, tachycardic and hypertensive. Laboratory evaluation revealed no evidence of a leukocytosis. Coagulation profile was within normal limits. Chemistry profile was largely unrevealing. Initial troponin was increased to 0.200. Plain film chest x-ray revealed a mild degree of cardiomegaly. The patient was initially admitted to the progressive care unit over concerns for an acute coronary syndrome. Cardiology was consulted accordingly. The patient was subsequently taken for cardiac catheterization on December 28, which revealed a proximal LAD lesion which required PCI with drug-eluting stent placement. Following the patient's cardiac procedure, her chest discomfort resolved. The patient's hospital course has been complicated by elevated transaminase levels, which appears to be secondary to fatty liver disease noted on abdominal ultrasound from December 28. The patient is currently maintaining appropriate oxygen saturations on 2 L/min. Nevertheless, she continues to report ongoing exertional shortness of breath. Surface echocardiogram dated December 27 revealed segmental LV dysfunction with preserved ejection fraction. Diastolic function was indeterminate. There was no evidence of an atrial septal defect. Right ventricular systolic pressure was unable to be estimated. Past Medical History Past Medical History (Chronic Problems): Chronic Problems (Last Updated 12/28/18 @ 11:25 by Kaitlin Pendleton) Atherosclerotic heart disease of [place] coronary artery without angina pectoris (Chronic) Tachycardia (Chronic) Depression (Chronic) Hyperlipidemia (Chronic) Type 2 diabetes mellitus (Chronic) Hypertension (Chronic) Medical History: Medical History (Last Updated 12/28/18 @ 11:25 by Kaitlin Pendleton) Atherosclerotic heart disease of [place] coronary artery without angina pectoris (Chronic) I25.10 Allergies Sulfa (Sulfonamide Antibiotics) Allergy (Verified 12/27/18 18:36) Hives Home Medications: Ambulatory Orders Medication Instructions Recorded Aspirin [Aspir 81] 81 mg PO DAILY 12/27/18 Atenolol 50 mg PO DAILY 12/27/18 Buspirone HCl 10 mg PO BID 12/27/18 Fluoxetine HCl 40 mg PO DAILY 12/27/18 Glimepiride [Amaryl] 2 mg PO BID 12/27/18 Hydrochlorothiazide [Hctz] 25 mg PO DAILY 12/27/18 Insulin Glargine,Hum.rec.anlog 18 - 23 unit SC QHS 12/27/18 [Lantus] Lisinopril 5 mg PO DAILY 12/27/18 Metformin HCl 500 mg PO TID 12/27/18 Naproxen [Naprosyn] 500 mg PO BID 12/27/18 Pravastatin [Pravachol] 40 mg PO QHS 12/27/18 Propranolol HCl 20 - 40 mg PO TID PRN PRN 12/27/18 traZODone [Desyrel] 100 mg PO QHS 12/27/18 Surgical History: Surgical History (Last Updated 12/28/18 @ 11:25 by Kaitlin Pendleton) S/P drug eluting coronary stent placement (Acute) Onset Date: ~12/28/18 Z95.5 Surgical History: cholecystectomy Psychiatric History: Depression 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 Denies: Cough Gastrointestinal: Denies: Abdominal Pain, Nausea, Vomiting Genitourinary: Denies: Dysuria Musculoskeletal: Denies: Joint Pain, Joint Tenderness Skin: Denies: Rash, Wounds Neurological: Denies: Numbness, Tingling, Focal weakness Psychiatric: Denies: Anxiety, Depression, Homicidal Ideations, Suicidal Ideations Hematologic/ Lymphatic: Reports: Anemia Patient Problems: Active and Suspected Problems (Last Updated 12/28/18 @ 11:25 by Kaitlin Pendleton) NSTEMI (non-ST elevated myocardial infarction) (Acute) Unstable angina (Acute) Chest pain (Acute) Objective: The patient's most recent lab work, culture data and imaging studies have all been personally reviewed. - Physical Exam General: Alert, Oriented x3, Cooperative, No apparent distress, - - Sitting in bedside recliner. Currently saturating in the high 90s on 2 L/min. HEENT: Atraumatic, PERRLA, Normocephalic Oral: No Gingival or Mucosal Lesions/ Ulcerations Neck: Supple, No Nodes, Trachea Midline Lungs: No rhonchi, No wheeze, No rales, Diminished - R>L Cardiovascular: Regular rate, Regular Rhythm, Normal S1, Normal S2, No murmurs Abdomen: Bowel Sounds Present, Soft, Non Tender, Obese Extremities: No clubbing, No cyanosis, Edema Skin: No breakdown Musculoskeletal: No Tenderness to Palpation of Joints or Extremities Lymphatic: No Cervical, Supraclavicular, or Inguinal Adenopathy Neurological: Cranial nerves II-XII grossly intact, Neuro grossly intact Psych/Mental Status: Alert and oriented to time, place, person, mood and affect Vital Signs Temp Pulse Resp BP Pulse Ox 98.2 F 70 18 114/60 95 12/30/18 05:50 12/30/18 06:46 12/30/18 05:50 12/30/18 05:50 12/30/18 08:00 Oxygen Flow Rate (L/min) 2 Oxygen Delivery Method Nasal Cannula Weight: 246 lb 14.684 oz Body Mass Index (BMI) 44.2 Intake and Output for Last 24 Hours 12/28/18 12/29/18 12/30/18 23:59 23:59 23:59 Intake Total 1335 / 1335 760 / 760 360 / 360 Output Total 1100 / 1100 200 / 200 Balance 235 / 235 560 / 560 360 / 360 Laboratory Tests Past 24 Hrs 12/30/18 12/30/18 05:55 05:55 WBC 6.9 RBC 4.13 L Hgb 12.1 Hct 37.1 MCV 89.8 MCH 29.3 MCHC 32.6 RDW 14.5 RDW Differential 47.1 H Plt Count 208 MPV 10.5 Immature Gran % (Auto) 0.300 Neut % (Auto) 61.3 Lymph % (Auto) 28.3 [place] % (Auto) 5.7 Eos % (Auto) 4.1 Baso % (Auto) 0.3 Absolute Neuts (auto) 4.2 Absolute Lymphs (auto) 1.95 Total Counted Not Reportable Sodium 137 Potassium 4.2 Chloride 106 Carbon Dioxide 23.0 Anion Gap 8 BUN 28 H Creatinine 0.90 Estim Creat Clear Calc 50.60 Est GFR (MDRD) Af Amer 81 Est GFR (MDRD) Non-Af 67 BUN/Creatinine Ratio 31.0 H Glucose 204 H Calcium 8.8 Total Bilirubin 0.80 AST 73 H ALT 176 H Alkaline Phosphatase 149 H Total Protein 7.4 Albumin 2.8 L Globulin 4.6 H Albumin/Globulin Ratio 0.6 L POC Glucose 12/30/18 12/29/18 12/29/18 06:40 23:09 16:33 POC Glucose 177 H 222 H 226 H 12/29/18 11:10 POC Glucose 300 H Clinical Impression(s) from Imaging Studies Chest X-Ray 12/27/18 19:27 IMPRESSION: Mild cardiomegaly. Remainder is within normal limits. Electronically Signed: Tino Deng DO at 19:49 EDT Tel , Service support , Abdomen Ultrasound 12/28/18 08:37 IMPRESSION: Enlarged fatty liver. Trace perihepatic fluid. Mild cortical thinning of the right kidney. Status post cholecystectomy. Mild prominence of the common bile duct. Electronically Signed: Sanjay Cabrera DO at 20:50 EDT Tel [phone], Service support , Assessment/Plan All Active Problems (Last Updated 12/28/18 @ 11:25 by Kaitlin Pendleton) S/P drug eluting coronary stent placement (Acute ~12/28/18) NSTEMI (non-ST elevated myocardial infarction) (Acute) Unstable angina (Acute) Chest pain (Acute) RECOMMENDATIONS: 1. Check and document room air oxygen saturation at rest. 2. Perform walking oximetry in the hallway on room air and document patient's saturation. 3. Continue diuretic therapy as ordered. 4. Incentive spirometer has been ordered and should be utilized. Mobilize patient as tolerated. 5. Wean supplemental oxygen to maintain saturations at or above 90%. 6. Check iron studies. IMPRESSIONS: 1. Exertional shortness of breath While the patient does report a mild history of exertional dyspnea, she did report that it significantly worsened in the time leading up to her hospitalization. Her chest pain has resolved following PCI. However, she reports continued exertional shortness of breath. She is currently saturating in the high 90s at rest on 2 L/min. I asked the nurse to remove the patient from supplemental oxygen and check her room air oxygen saturation at rest. I would then proceed with walking the patient in the hallway to evaluate if the patient truly has a hypoxic response to exertion. Her recent surface echocardiogram reported indeterminate diastolic function and was unable to estimate the patient's right-sided heart pressures. While I cannot discount the possibility of underlying diastolic dysfunction or pulmonary hypertension, the patient is currently being treated empirically with diuretic therapy. I would first like to assess her response to diuretic therapy before considering additional work-up. Additionally, for the sake of completeness, I am going to check iron studies, given that the patient had a hemoglobin yesterday noted to be 10.7 g/dL. If the patient is truly hypoxic with exertion and does not respond to diuretic therapy, may need to consider a more detailed look at the patient's lungs by CT scan. In the interim, I would also recommend that she be utilizing an incentive spirometer while she is immobile. Wean supplemental oxygen to maintain saturations at or above 90%. Mobilize patient as tolerated. 2. Non-ST segment elevation [place] The patient is now status post PCI with drug-eluting stent placement to the LAD. Continue current medical management per cardiology recommendations. 3. Elevated transaminase levels Likely secondary to fatty liver disease identified on ultrasound. 4. Obesity/diabetes mellitus/hypertension/hyperlipidemia/depression Complicates care, management, recovery and prognosis. Continue home medications as indicated. Weight loss is advisable. This note was generated with [employer]aculousation software. It may contain incorrect words, spelling, and punctuation that were not noted in checking the note before signing. Code Visit Inpatient E&M: 94335 Init Hosp L3
[2018-12-30 11:40] LABS: Bedside Glucose 254 mg/dL (70-110)
--- NOTE | 2018-12-30 11:51 | NURSING ---
DR. STEPHENS HERE TO SEE PT.
[2018-12-30 13:08] LABS: Ferritin 154 ng/mL (8-252); Iron 39 ug/dL (50-170); Iron Binding Capacity,Total 333 ug/dL (250-450); PERCENT IRON SATURATION 11.7 % (15.0-55.0)
--- NOTE | 2018-12-30 14:17 | NURSING ---
PT UP IN [facility] TO AMBULATE WITH 02, PT TOLERATED FAIR, 02 SATS WENT DOWN TO 89-90% ON ROOM AIR. PT BACK TO ROOM AND 2L 02 NC APPLIED AND SATS CAME UP TO 95-96%. DR. DHIRAJ STEPHENS NOTIFIED OR RESULTS.
[2018-12-30 16:51] LABS: Bedside Glucose 249 mg/dL (70-110)
--- NOTE | 2018-12-30 16:57 | PCM.PN.HOSP ---
Patient Problems: Active and Suspected Problems (Last Updated 12/28/18 @ 11:25 by Kaitlin Pendleton) NSTEMI (non-ST elevated myocardial infarction) (Acute) Unstable angina (Acute) Chest pain (Acute) Subjective: Patient is still gets easily winded on walking to bathroom. She also gets short of breath on laying down. Patient has been sleeping on propped up position for last 3 months. She is morbid obese and there is suspicion of obesity hypoventilation. She is a non-smoker and denies previous diagnosis of chronic lung disease including COPD or asthma or interstitial lung disease. Discussed with the jointer machine Dr. Díaz. He requested pulmonary consult to further evaluate the pulmonary cause of hypoxia and shortness of breath/dyspnea. Vitals/I&O's: Vital Signs Temp Pulse Resp BP Pulse Ox 97.9 F 69 18 105/55 L 97 12/30/18 11:50 12/30/18 13:40 12/30/18 11:50 12/30/18 11:50 12/30/18 13:52 Oxygen Flow Rate (L/min) 2 Oxygen Delivery Method Nasal Cannula Weight: 246 lb 14.684 oz Body Mass Index (BMI) 44.2 Intake and Output for Last 24 Hours 12/28/18 12/29/18 12/30/18 23:59 23:59 23:59 Intake Total 1335 / 1335 760 / 760 600 / 600 Output Total 1100 / 1100 200 / 200 Balance 235 / 235 560 / 560 600 / 600 General: Alert, Oriented x3, Cooperative HEENT: Atraumatic, PERRLA, EOMI, Normocephalic Neck: Supple, No JVD, Negative Carotid Bruits Lungs: Clear to auscultation, Normal air movement, No rhonchi, No wheeze, No rales, Diminished - Air entry is diminished in bilateral lung bases. Cardiovascular: Regular rate, Regular Rhythm, Normal S1, Normal S2, No murmurs Abdomen: Bowel Sounds Present, Soft, Non Tender, Non-Distended Extremities: Capillary Refill Less than 3 Seconds, Edema Skin: No rashes, No breakdown Musculoskeletal: No Tenderness to Palpation of Joints or Extremities, Arthritic Changes Lymphatic: No Cervical, Supraclavicular, or Inguinal Adenopathy Neurological: Cranial nerves II-XII grossly intact, Deep Tendon Reflexes 2+/4 and Symmetrical, Neuro grossly intact Psych/Mental Status: Normal Affect, Appropriate Laboratory Results 12/29/18 23:09: POC Glucose 222 H 12/30/18 05:55: WBC 6.9, RBC 4.13 L, Hgb 12.1, Hct 37.1, MCV 89.8, MCH 29.3, MCHC 32.6, RDW 14.5, RDW Differential 47.1 H, Plt Count 208, MPV 10.5, Immature Gran % (Auto) 0.300, Neut % (Auto) 61.3, Lymph % (Auto) 28.3, [place] % (Auto) 5.7, Eos % (Auto) 4.1, Baso % (Auto) 0.3, Absolute Neuts (auto) 4.2, Absolute Lymphs (auto) 1.95, Total Counted Not Reportable 12/30/18 05:55: Sodium 137, Potassium 4.2, Chloride 106, Carbon Dioxide 23.0, Anion Gap 8, BUN 28 H, Creatinine 0.90, Estim Creat Clear Calc 50.60, Est GFR (MDRD) Af Amer 81, Est GFR (MDRD) Non-Af 67, BUN/Creatinine Ratio 31.0 H, Glucose 204 H, Calcium 8.8, Total Bilirubin 0.80, AST 73 H, ALT 176 H, Alkaline Phosphatase 149 H, Total Protein 7.4, Albumin 2.8 L, Globulin 4.6 H, Albumin/Globulin Ratio 0.6 L 12/30/18 05:55: Iron 39 L, TIBC 333, Iron Saturation 11.7 L, Ferritin 154 12/30/18 06:40: POC Glucose 177 H 12/30/18 11:29: POC Glucose 254 H 12/30/18 16:41: POC Glucose 249 H Current Medications Acetaminophen (Tylenol) 650 mg PO Q6H PRN PRN PRN Reason: Fever, headache, pain Last Admin: 12/30/18 16:45 Dose: 650 mg [facility] Last Admin: 12/30/18 07:41 Dose: 81 mg Atenolol (Tenormin (Beta Shane)) 50 mg PO DAILY [facility] Last Admin: 12/30/18 09:18 Dose: 50 mg Atropine Sulfate () 0.5 mg IV UD PRN PRN Reason: HR <50 bpm Buspirone HCl (Buspar) 10 mg PO BID [facility] Last Admin: 12/30/18 09:19 Dose: 10 mg Enoxaparin Sodium (Lovenox) 40 mg SC DAILY [facility] Last Admin: 12/30/18 09:20 Dose: 40 mg Fluoxetine HCl (Prozac) 40 mg PO DAILY [facility] Last Admin: 12/30/18 09:18 Dose: 40 mg Sodium Chloride () 1,000 mls @ 15 mls/hr IV .Q48H [facility] Last Admin: 12/30/18 10:03 Dose: Not Given Insulin Human Lispro (Humalog Kwikpen (Bkc)) 0 unit SC [facility]; Protocol Last Admin: 12/30/18 16:43 Dose: 3 u Isosorbide Mononitrate (Imdur) 30 mg PO DAILY [facility] Last Admin: 12/30/18 09:19 Dose: 30 mg Lisinopril (Zestril) 5 mg PO DAILY [facility] Last Admin: 12/30/18 09:18 Dose: 5 mg Morphine Sulfate () 1 mg IV Q3H PRN PRN PRN Reason: SEVERE PAIN (6-10/10) Ondansetron HCl (Zofran) 4 mg IV Q6H PRN PRN PRN Reason: NAUSEA/VOMITING Last Admin: 12/28/18 17:45 Dose: 4 mg Pravastatin Sodium (Pravachol) 80 mg PO QHS [facility] Last Admin: 12/30/18 01:38 Dose: 80 mg Sodium Chloride () 5 - 15 ml IV UD PRN PRN Reason: SALINE FLUSH Last Admin: 12/29/18 11:12 Dose: 10 ml Ticagrelor (Brilinta) 90 mg PO BID [facility] Last Admin: 12/30/18 09:19 Dose: 90 mg Trazodone HCl (Desyrel) 100 mg PO QHS [facility] Last Admin: 12/30/18 01:39 Dose: Not Given Medical Necessity - Tobacco Use Smoking Status: Former smoker Assessment/Plan All Active Problems (Last Updated 12/28/18 @ 11:25 by Kaitlin Pendleton) S/P drug eluting coronary stent placement (Acute ~12/28/18) NSTEMI (non-ST elevated myocardial infarction) (Acute) Unstable angina (Acute) Chest pain (Acute) This is a 63 years old female patient presented to the emergency room because of shortness of breath and chest pain, found to have abnormal cardiac enzymes and she is being admitted for evaluation and treatment. Patient had elevated troponins #1 Unstable angina/non-STEMI: The patient is being admitted in ICU after PCI of single vessel coronary artery, proximal and mid LAD. EKG revealed nonspecific ST-T abnormality in the anterolateral leads and subsequent loss of R wave in precordial lead V3.. It did not meet criteria for STEMI. Subsequently, patient was started on IV heparin drip, nitroglycerin drip, loading dose of Brilinta and then cardiac cath. On aspirin, Brilinta, atenolol and lisinopril. On pravastatin. LDL 91 Echo reviewed with the patient. EF 65% with mid anteroseptal and anterior apex hypokinetic. trivial MR, TR. Diastolic function indeterminate. #2 Dyspnea/hypoxia, etiology unclear but possible secondary to obesity hypoventilation syndrome: Discussed with Dr. Díaz. Will continue diuretic. As per the echo, patient does not have cardiac shunt or significant valvular abnormality to account for shortness of breath. Echo shows EF 65%. Seen by client services vice president and recommended walking pulse oximetry, incentive spirometry. Iron studies ordered by client services vice president and shows iron deficiency anemia. Serum iron 39, TIBC 333, iron saturation 11.7%. Ferritin 154. Started on ferrous sulfate 325 mg twice daily. B12 and folic acid ordered. Sinus tachycardia: Patient mentioned that she had a history of tachycardia and palpitation, has been on propanolol.TSH 2.45. #3 type 2 diabetes mellitus: ADA diet, Accu-Cheks, insulin sliding scale, continue home doses of Lantus, continue glimepiride, hold metformin. #4 hypertension: Blood pressure was elevated but controlled now, continue atenolol and lisinopril, hold HCTZ. #5 depression: Continue trazodone. #6 hyperlipidemia: Continue statins. 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 No abdominal pain or tenderness. In fact, she does not know previous history of elevated transaminases or hepatobiliary issues except cholecystectomy in the past. AST 159 H, ALT 209 H, Alkaline Phosphatase 126 H. There is no previous imaging of liver/hepatobiliary system in our EMR. Repeat LFT shows improvement in transaminases. Right upper quadrant sonogram reported as Enlarged fatty liver. Trace perihepatic fluid. Status post cholecystectomy. Mild prominence of the common bile duct; 8 mm. DVT prophylaxis: Resume after 24 hours of PCI. Patient has arterial sheath in the right radial artery. Active Medications Acetaminophen (Tylenol) 650 mg PO Q6H PRN PRN PRN Reason: Fever, headache, pain Last Admin: 12/30/18 16:45 Dose: 650 mg Aspirin (Ecotrin) 81 mg PO DAILYCM [facility] Last Admin: 12/30/18 07:41 Dose: 81 mg Atenolol (Tenormin (Beta Shane)) 50 mg PO DAILY [facility] Last Admin: 12/30/18 09:18 Dose: 50 mg Atropine Sulfate () 0.5 mg IV UD PRN PRN Reason: HR <50 bpm Buspirone HCl (Buspar) 10 mg PO BID [facility] Last Admin: 12/30/18 09:19 Dose: 10 mg Enoxaparin Sodium (Lovenox) 40 mg SC DAILY [facility] Last Admin: 12/30/18 09:20 Dose: 40 mg Fluoxetine HCl (Prozac) 40 mg PO DAILY [facility] Last Admin: 12/30/18 09:18 Dose: 40 mg Sodium Chloride () 1,000 mls @ 15 mls/hr IV .Q48H [facility] Last Admin: 12/30/18 10:03 Dose: Not Given Insulin Human Lispro (Humalog Kwikpen (Bkc)) 0 unit SC ACHS [facility]; Protocol Last Admin: 12/30/18 16:43 Dose: 3 u Isosorbide Mononitrate (Imdur) 30 mg PO DAILY [facility] Last Admin: 12/30/18 09:19 Dose: 30 mg Lisinopril (Zestril) 5 mg PO DAILY [facility] Last Admin: 12/30/18 09:18 Dose: 5 mg Morphine Sulfate () 1 mg IV Q3H PRN PRN PRN Reason: SEVERE PAIN (6-10/10) Ondansetron HCl (Zofran) 4 mg IV Q6H PRN PRN PRN Reason: NAUSEA/VOMITING Last Admin: 12/28/18 17:45 Dose: 4 mg Pravastatin Sodium (Pravachol) 80 mg PO QHS [facility] Last Admin: 12/30/18 01:38 Dose: 80 mg Sodium Chloride () 5 - 15 ml IV UD PRN PRN Reason: SALINE FLUSH Last Admin: 12/29/18 11:12 Dose: 10 ml Ticagrelor (Brilinta) 90 mg PO BID [facility] Last Admin: 12/30/18 09:19 Dose: 90 mg Trazodone HCl (Desyrel) 100 mg PO QHS [facility] Last Admin: 12/30/18 01:39 Dose: Not Given Laboratory Results 12/29/18 23:09: POC Glucose 222 H 12/30/18 05:55: WBC 6.9, RBC 4.13 L, Hgb 12.1, Hct 37.1, MCV 89.8, MCH 29.3, MCHC 32.6, RDW 14.5, RDW Differential 47.1 H, Plt Count 208, MPV 10.5, Immature Gran % (Auto) 0.300, Neut % (Auto) 61.3, Lymph % (Auto) 28.3, [place] % (Auto) 5.7, Eos % (Auto) 4.1, Baso % (Auto) 0.3, Absolute Neuts (auto) 4.2, Absolute Lymphs (auto) 1.95, Total Counted Not Reportable 12/30/18 05:55: Sodium 137, Potassium 4.2, Chloride 106, Carbon Dioxide 23.0, Anion Gap 8, BUN 28 H, Creatinine 0.90, Estim Creat Clear Calc 50.60, Est GFR (MDRD) Af Amer 81, Est GFR (MDRD) Non-Af 67, BUN/Creatinine Ratio 31.0 H, Glucose 204 H, Calcium 8.8, Total Bilirubin 0.80, AST 73 H, ALT 176 H, Alkaline Phosphatase 149 H, Total Protein 7.4, Albumin 2.8 L, Globulin 4.6 H, Albumin/Globulin Ratio 0.6 L 12/30/18 05:55: Iron 39 L, TIBC 333, Iron Saturation 11.7 L, Ferritin 154 12/30/18 06:40: POC Glucose 177 H 12/30/18 11:29: POC Glucose 254 H 12/30/18 16:41: POC Glucose 249 H Clinical Impression(s) from Imaging Studies Chest X-Ray 12/27/18 19:27 IMPRESSION: Mild cardiomegaly. Remainder is within normal limits. Electronically Signed: Tino Deng DO at 19:49 EDT Tel , Service support , Abdomen Ultrasound 12/28/18 08:37 IMPRESSION: Enlarged fatty liver. Trace perihepatic fluid. Mild cortical thinning of the right kidney. Status post cholecystectomy. Mild prominence of the common bile duct. Code Visit Inpatient E&M: 99279 Subs Hosp L3
--- NOTE | 2018-12-30 17:07 | PN_ITS ---
Patient Problems: Active and Suspected Problems (Last Updated 12/28/18 @ 11:25 by Kaitlin Pendleton) NSTEMI (non-ST elevated myocardial infarction) (Acute) Unstable angina (Acute) Chest pain (Acute) Subjective: Patient is still gets easily winded on walking to bathroom. She also gets short of breath on laying down. Patient has been sleeping on propped up position for last 3 months. She is morbid obese and there is suspicion of obesity hypoventilation. She is a non-smoker and denies previous diagnosis of chronic lung disease including COPD or asthma or interstitial lung disease. Discussed with the assistant production editor Dr. Díaz. He requested pulmonary consult to further evaluate the pulmonary cause of hypoxia and shortness of breath/dyspnea. Vitals/I&O's: Vital Signs Temp Pulse Resp BP Pulse Ox 97.9 F 69 18 105/55 L 97 12/30/18 11:50 12/30/18 13:40 12/30/18 11:50 12/30/18 11:50 12/30/18 13:52 Oxygen Flow Rate (L/min) 2 Oxygen Delivery Method Nasal Cannula Weight: 246 lb 14.684 oz Body Mass Index (BMI) 44.2 Intake and Output for Last 24 Hours 12/28/18 12/29/18 12/30/18 23:59 23:59 23:59 Intake Total 1335 / 1335 760 / 760 600 / 600 Output Total 1100 / 1100 200 / 200 Balance 235 / 235 560 / 560 600 / 600 General: Alert, Oriented x3, Cooperative HEENT: Atraumatic, PERRLA, EOMI, Normocephalic Neck: Supple, No JVD, Negative Carotid Bruits Lungs: Clear to auscultation, Normal air movement, No rhonchi, No wheeze, No rales, Diminished - Air entry is diminished in bilateral lung bases. Cardiovascular: Regular rate, Regular Rhythm, Normal S1, Normal S2, No murmurs Abdomen: Bowel Sounds Present, Soft, Non Tender, Non-Distended Extremities: Capillary Refill Less than 3 Seconds, Edema Skin: No rashes, No breakdown Musculoskeletal: No Tenderness to Palpation of Joints or Extremities, Arthritic Changes Lymphatic: No Cervical, Supraclavicular, or Inguinal Adenopathy Neurological: Cranial nerves II-XII grossly intact, Deep Tendon Reflexes 2+/4 and Symmetrical, Neuro grossly intact Psych/Mental Status: Normal Affect, Appropriate Laboratory Results 12/29/18 23:09: POC Glucose 222 H 12/30/18 05:55: WBC 6.9, RBC 4.13 L, Hgb 12.1, Hct 37.1, MCV 89.8, MCH 29.3, MCHC 32.6, RDW 14.5, RDW Differential 47.1 H, Plt Count 208, MPV 10.5, Immature Gran % (Auto) 0.300, Neut % (Auto) 61.3, Lymph % (Auto) 28.3, Meagher % (Auto) 5.7, Eos % (Auto) 4.1, Baso % (Auto) 0.3, Absolute Neuts (auto) 4.2, Absolute Lymphs (auto) 1.95, Total Counted Not Reportable 12/30/18 05:55: Sodium 137, Potassium 4.2, Chloride 106, Carbon Dioxide 23.0, Anion Gap 8, BUN 28 H, Creatinine 0.90, Estim Creat Clear Calc 50.60, Est GFR (MDRD) Af Amer 81, Est GFR (MDRD) Non-Af 67, BUN/Creatinine Ratio 31.0 H, Glucose 204 H, Calcium 8.8, Total Bilirubin 0.80, AST 73 H, ALT 176 H, Alkaline Phosphatase 149 H, Total Protein 7.4, Albumin 2.8 L, Globulin 4.6 H, Albumin/Globulin Ratio 0.6 L 12/30/18 05:55: Iron 39 L, TIBC 333, Iron Saturation 11.7 L, Ferritin 154 12/30/18 06:40: POC Glucose 177 H 12/30/18 11:29: POC Glucose 254 H 12/30/18 16:41: POC Glucose 249 H Current Medications Acetaminophen (Tylenol) 650 mg PO Q6H PRN PRN PRN Reason: Fever, headache, pain Last Admin: 12/30/18 16:45 Dose: 650 mg [facility]) [facility] Last Admin: 12/30/18 07:41 Dose: 81 mg Atenolol (Tenormin (Beta Shane)) 50 mg PO DAILY [facility] Last Admin: 12/30/18 09:18 Dose: 50 mg Atropine Sulfate () 0.5 mg IV UD PRN PRN Reason: HR <50 bpm Buspirone HCl (Buspar) 10 mg PO BID [facility] Last Admin: 12/30/18 09:19 Dose: 10 mg Enoxaparin Sodium (Lovenox) 40 mg SC DAILY [facility] Last Admin: 12/30/18 09:20 Dose: 40 mg Fluoxetine HCl (Prozac) 40 mg PO DAILY [facility] Last Admin: 12/30/18 09:18 Dose: 40 mg Sodium Chloride () 1,000 mls @ 15 mls/hr IV .Q48H [facility] Last Admin: 12/30/18 10:03 Dose: Not Given Insulin Human Lispro (Humalog Kwikpen (Bkc)) [address] [facility]; Protocol Last Admin: 12/30/18 16:43 Dose: 3 u Isosorbide Mononitrate (Imdur) 30 mg PO DAILY [facility] Last Admin: 12/30/18 09:19 Dose: 30 mg Lisinopril (Zestril) 5 mg PO DAILY [facility] Last Admin: 12/30/18 09:18 Dose: 5 mg Morphine Sulfate () 1 mg IV Q3H PRN PRN PRN Reason: SEVERE PAIN (6-10/10) Ondansetron HCl (Zofran) 4 mg IV Q6H PRN PRN PRN Reason: NAUSEA/VOMITING Last Admin: 12/28/18 17:45 Dose: 4 mg Pravastatin Sodium (Pravachol) 80 mg PO QHS [facility] Last Admin: 12/30/18 01:38 Dose: 80 mg Sodium Chloride () 5 - 15 ml IV UD PRN PRN Reason: SALINE FLUSH Last Admin: 12/29/18 11:12 Dose: 10 ml Ticagrelor (Brilinta) 90 mg PO BID [facility] Last Admin: 12/30/18 09:19 Dose: 90 mg Trazodone HCl (Desyrel) 100 mg PO QHS [facility] Last Admin: 12/30/18 01:39 Dose: Not Given Medical Necessity - Tobacco Use Smoking Status: Former smoker Assessment/Plan All Active Problems (Last Updated 12/28/18 @ 11:25 by Kaitlin Pendleton) S/P drug eluting coronary stent placement (Acute ~12/28/18) NSTEMI (non-ST elevated myocardial infarction) (Acute) Unstable angina (Acute) Chest pain (Acute) This is a 63 years old female patient presented to the emergency room because of shortness of breath and chest pain, found to have abnormal cardiac enzymes and she is being admitted for evaluation and treatment. Patient had elevated troponins #1 Unstable angina/non-STEMI: The patient is being admitted in ICU after PCI of single vessel coronary artery, proximal and mid LAD. EKG revealed nonspecific ST-T abnormality in the anterolateral leads and subsequent loss of R wave in precordial lead V3.. It did not meet criteria for STEMI. Subsequently, patient was started on IV heparin drip, nitroglycerin drip, loading dose of Brilinta and then cardiac cath. On aspirin, Brilinta, atenolol and lisinopril. On pravastatin. LDL 91 Echo reviewed with the patient. EF 65% with mid anteroseptal and anterior apex hypokinetic. trivial MR, TR. Diastolic function indeterminate. #2 Dyspnea/hypoxia, etiology unclear but possible secondary to obesity hypoventilation syndrome: Discussed with Dr. Díaz. Will continue diuretic. As per the echo, patient does not have cardiac shunt or significant valvular abnormality to account for shortness of breath. Echo shows EF 65%. Seen by [employer] crm developer and recommended walking pulse oximetry, incentive spirometry. Iron studies ordered by microsoft crm developer and shows iron deficiency anemia. Serum iron 39, TIBC 333, iron saturation 11.7%. Ferritin 154. Started on ferrous sulfate 325 mg twice daily. B12 and folic acid ordered. Sinus tachycardia: Patient mentioned that she had a history of tachycardia and palpitation, has been on propanolol.TSH 2.45. #3 type 2 diabetes mellitus: ADA diet, Accu-Cheks, insulin sliding scale, continue home doses of Lantus, continue glimepiride, hold metformin. #4 hypertension: Blood pressure was elevated but controlled now, continue atenolol and lisinopril, hold HCTZ. #5 depression: Continue trazodone. #6 hyperlipidemia: Continue statins. 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 No abdominal pain or tenderness. In fact, she does not know previous history of elevated transaminases or hepatobiliary issues except cholecystectomy in the past. AST 159 H, ALT 209 H, Alkaline Phosphatase 126 H. There is no previous imaging of liver/hepatobiliary system in our EMR. Repeat LFT shows improvement in transaminases. Right upper quadrant sonogram reported as Enlarged fatty liver. Trace perihepatic fluid. Status post cholecystectomy. Mild prominence of the common bile duct; 8 mm. DVT prophylaxis: Resume after 24 hours of PCI. Patient has arterial sheath in the right radial artery. Active Medications Acetaminophen (Tylenol) 650 mg PO Q6H PRN PRN PRN Reason: Fever, headache, pain Last Admin: 12/30/18 16:45 Dose: 650 mg Aspirin (Ecotrin) 81 mg PO DAILYCM [facility] Last Admin: 12/30/18 07:41 Dose: 81 mg Atenolol (Tenormin (Beta Shane)) 50 mg PO DAILY [facility] Last Admin: 12/30/18 09:18 Dose: 50 mg Atropine Sulfate () 0.5 mg IV UD PRN PRN Reason: HR <50 bpm Buspirone HCl (Buspar) 10 mg PO BID [facility] Last Admin: 12/30/18 09:19 Dose: 10 mg Enoxaparin Sodium (Lovenox) 40 mg SC DAILY [facility] Last Admin: 12/30/18 09:20 Dose: 40 mg Fluoxetine HCl (Prozac) 40 mg PO DAILY [facility] Last Admin: 12/30/18 09:18 Dose: 40 mg Sodium Chloride () 1,000 mls @ 15 mls/hr IV .Q48H [facility] Last Admin: 12/30/18 10:03 Dose: Not Given Insulin Human Lispro (Humalog Kwikpen (Bkc)) 0 unit SC ACHS [facility]; Protocol Last Admin: 12/30/18 16:43 Dose: 3 u Isosorbide Mononitrate (Imdur) 30 mg PO DAILY [facility] Last Admin: 12/30/18 09:19 Dose: 30 mg Lisinopril (Zestril) 5 mg PO DAILY [facility] Last Admin: 12/30/18 09:18 Dose: 5 mg Morphine Sulfate () 1 mg IV Q3H PRN PRN PRN Reason: SEVERE PAIN (6-10/10) Ondansetron HCl (Zofran) 4 mg IV Q6H PRN PRN PRN Reason: NAUSEA/VOMITING Last Admin: 12/28/18 17:45 Dose: 4 mg Pravastatin Sodium (Pravachol) 80 mg PO QHS [facility] Last Admin: 12/30/18 01:38 Dose: 80 mg Sodium Chloride () 5 - 15 ml IV UD PRN PRN Reason: SALINE FLUSH Last Admin: 12/29/18 11:12 Dose: 10 ml Ticagrelor (Brilinta) 90 mg PO BID [facility] Last Admin: 12/30/18 09:19 Dose: 90 mg Trazodone HCl (Desyrel) 100 mg PO QHS [facility] Last Admin: 12/30/18 01:39 Dose: Not Given Laboratory Results 12/29/18 23:09: POC Glucose 222 H 12/30/18 05:55: WBC 6.9, RBC 4.13 L, Hgb 12.1, Hct 37.1, MCV 89.8, MCH 29.3, MCHC 32.6, RDW 14.5, RDW Differential 47.1 H, Plt Count 208, MPV 10.5, Immature Gran % (Auto) 0.300, Neut % (Auto) 61.3, Lymph % (Auto) 28.3, Meagher % (Auto) 5.7, Eos % (Auto) 4.1, Baso % (Auto) 0.3, Absolute Neuts (auto) 4.2, Absolute Lymphs (auto) 1.95, Total Counted Not Reportable 12/30/18 05:55: Sodium 137, Potassium 4.2, Chloride 106, Carbon Dioxide 23.0, Anion Gap 8, BUN 28 H, Creatinine 0.90, Estim Creat Clear Calc 50.60, Est GFR (MDRD) Af Amer 81, Est GFR (MDRD) Non-Af 67, BUN/Creatinine Ratio 31.0 H, Glucose 204 H, Calcium 8.8, Total Bilirubin 0.80, AST 73 H, ALT 176 H, Alkaline Phosphatase 149 H, Total Protein 7.4, Albumin 2.8 L, Globulin 4.6 H, Albumin/Gl obulin Ratio 0.6 L 12/30/18 05:55: Iron 39 L, TIBC 333, Iron Saturation 11.7 L, Ferritin 154 12/30/18 06:40: POC Glucose 177 H 12/30/18 11:29: POC Glucose 254 H 12/30/18 16:41: POC Glucose 249 H Clinical Impression(s) from Imaging Studies Chest X-Ray 12/27/18 19:27 IMPRESSION: Mild cardiomegaly. Remainder is within normal limits. Electronically Signed: Tino Deng DO at 19:49 EDT Tel , Service support , Abdomen Ultrasound 12/28/18 08:37 IMPRESSION: Enlarged fatty liver. Trace perihepatic fluid. Mild cortical thinning of the right kidney. Status post cholecystectomy. Mild prominence of the common bile duct. Code Visit Inpatient E&M: 79323 Subs Hosp L3
[2018-12-30] MEDS: Ferrous Sulfate 325 MG Tablet PO (18:30)
[2018-12-30] MEDS: traZODone 100 MG Tablet PO (21:53)
[2018-12-31] VITALS (12 sets, daily range): BP systolic 103–120; BP diastolic 59–66; PULSE 65–81; RESP 18–22; TEMP 36.4–36.9; O2SAT 92–98
[2018-12-31 00:20] LABS: Bedside Glucose 214 mg/dL (70-110)
[2018-12-31 05:19] LABS: Absolute Lymphocyte Count 2.12 X10^3/ul (0.83-4.51); Absolute Neutrophil Count 3.7 X10^3/uL (2.0-7.7); Basophil# 0.03 X10^3/uL; Basophil% 0.5 % (0-1); Eosinophil# 0.33 X10^3/uL; Hematocrit 36.9 % (37-47); Hemoglobin 11.9 g/dl (12.0-15.0); Lymphocyte # 2.12 X10^3/ul (4.0); Lymphocyte % 31.9 % (19-41); Mean Corp Hgb Conc 32.2 g/gl (32-36); Mean Corpuscular Hgb 28.8 pg (27.0-32.0); Mean Corpuscular Volume 89.3 fL (81-99); Mean Platelet Vol. 11.2 fl (6.2-12.0); Monocyte# 0.44 X10^3/uL; Monocyte% 6.6 % (0-10); Neutrophil % 55.5 % (47-70); Platelet Count 209 K/mm3 (150-450); RBC Distribution Width CV 14.2 % (11.6-14.6); RBC Distribution Width SD 45.3 fl (35.1-43.9); Red Blood Count 4.13 M/mm3 (4.2-5.4); White Blood Count 6.7 K/mm3 (4.4-11.0)
[2018-12-31 05:23] LABS: POSITIVE COUNT NO; POSITIVE DIFFERENTIAL NO; POSITIVE MORPHOLOGY NO
[2018-12-31 05:47] LABS: Vitamin B12 1524 pg/mL (211-911)
[2018-12-31 05:49] LABS: ALB/GLOB Ratio 0.6 RATIO (0.9-2.4); AST(SGOT) 43 U/L (15-37); Alanine Aminotransfer ALT/SGPT 141 U/L (13-56); Albumin, Serum 2.7 g/dL (3.2-5.0); Alkaline Phosphatase 159 U/L (45-117); Anion Gap 7 (5-15); BUN 28 mg/dL (7-18); BUN/Creat Ratio 31.1 RATIO (10-20); Calcium,Total 8.9 mg/dL (8.5-10.1); Chloride 104 mmol/L (98-107); EST Glomerular Filtration Rate 67 mL/min (>60); Est Glom Filt Rate - Afr Amer 81 mL/min (>60); Globulin 4.7 g/dL (2.2-4.2); Glucose 221 mg/dL (74-106); Potassium 3.9 mmol/L (3.5-5.1); Protein, Total 7.4 g/dL (6.4-8.2); Sodium Level 138 mmol/L (136-145)
[2018-12-31] MEDS: Insulin Lispro 100 UNIT/ML INSULN.PEN SC ×4 (06:49→21:59)
--- NOTE | 2018-12-31 07:00 | RAD_ITS ---
STUDY: X-RAY CHEST REASON FOR EXAM: Female, 63 years old. Substernal chest pain TECHNIQUE: Single AP portable view of the chest. COMPARISON: 12/27/2018 FINDINGS: EKG leads overlie the chest The lungs are clear and expanded. There is no demonstrated pleural abnormality. Normal size heart. Normal mediastinum and caridad. Normal visualized pulmonary arteries. Normal visualized aortic arch and descending thoracic aorta. Normal visualized thoracic spine. Normal visualized ribs, clavicles, and shoulders. There is no demonstrated abnormality of the visualized soft tissue structures of the upper abdomen. RAD/Chest 1 View (Portable) IMPRESSION: No acute pulmonary process Electronically Signed: Ok Chakraborty MD at 8:51 EDT , Service support ,
[2018-12-31 07:01] LABS: Bedside Glucose 216 mg/dL (70-110)
--- NOTE | 2018-12-31 07:01 | PN_ITS ---
Patient Problems: Active and Suspected Problems (Last Updated 12/28/18 @ 11:25 by Kaitlin Pendleton) NSTEMI (non-ST elevated myocardial infarction) (Acute) Unstable angina (Acute) Chest pain (Acute) Subjective: The patient was seen and examined at the bedside this morning. Events from the last 24 hours have been reviewed. The patient is currently afebrile, hemodynamically stable and maintaining appropriate oxygen saturations on 2 L/min via nasal cannula. I did speak with the nurse yesterday who indicated that the patient was able to maintain appropriate oxygen saturations at rest on room air. Therefore, it is unclear to me as to why she is currently on nasal cannula supplemental oxygen. She did ambulate in the hallway yesterday and was noted to have a kassandra oxygen saturation of 89 to 90% with exertion. This level of exertional oxygen desaturation would not qualify her for supplemental O2. The patient was noted to have a decreased iron level upon check yesterday. This morning, the patient does report some interval improvement in her perceived exertional dyspnea. She continues to receive diuretic therapy. There are plans for the patient's Brilinta to be discontinued, over concerns that this medication may also be contributing to her sensation of dyspnea. A repeat plain film chest x-ray from this morning revealed no acute cardiopulmonary process. Objective: The patient's most recent lab work, culture data and imaging studies have all been personally reviewed. A repeat surface echocardiogram completed on December 30 revealed segmental LV dysfunction with an ejection fraction of 60%. Bubble contrast was negative for right to left intra-atrial shunt. The right ventricular systolic pressure was unable to be estimated. - Physical Exam General: Alert, Oriented x3, Cooperative, No apparent distress, - - Sitting in bedside recliner. HEENT: Atraumatic, PERRLA, Normocephalic Oral: Moist Mucosa, No Gingival or Mucosal Lesions/ Ulcerations Neck: Supple, No Nodes, Trachea Midline Lungs: No rhonchi, No wheeze, No rales, Diminished Cardiovascular: Regular rate, Regular Rhythm, Normal S1, Normal S2, No murmurs Abdomen: Bowel Sounds Present, Soft, Non Tender, Obese Extremities: No clubbing, No cyanosis, Edema Skin: - - No significant change from previous Musculoskeletal: No Tenderness to Palpation of Joints or Extremities, No Muscle Wasting Lymphatic: No Cervical, Supraclavicular, or Inguinal Adenopathy Neurological: Cranial nerves II-XII grossly intact, Neuro grossly intact Psych/Mental Status: Normal Affect, Appropriate Vital Signs Temp Pulse Resp BP Pulse Ox 98 F 67 18 120/66 94 12/31/18 03:40 12/31/18 03:40 12/31/18 03:40 12/31/18 03:40 12/31/18 03:40 Oxygen Flow Rate (L/min) 2 Oxygen Delivery Method Nasal Cannula Weight: 248 lb 3.848 oz Body Mass Index (BMI) 44.2 Intake and Output for Last 24 Hours 12/29/18 12/30/18 12/31/18 23:59 23:59 23:59 Intake Total 760 / 760 840 / 840 360 / 360 Output Total 200 / 200 Balance 560 / 560 840 / 840 360 / 360 Laboratory Tests Past 24 Hrs 12/30/18 12/31/18 12/31/18 05:55 04:30 04:30 WBC 6.7 RBC 4.13 L Hgb 11.9 L Hct 36.9 L MCV 89.3 MCH 28.8 MCHC 32.2 RDW 14.2 RDW Differential 45.3 H Plt Count 209 MPV 11.2 Immature Gran % (Auto) 0.500 Neut % (Auto) 55.5 Lymph % (Auto) 31.9 [place] % (Auto) 6.6 Eos % (Auto) 5.0 Baso % (Auto) 0.5 Absolute Neuts (auto) 3.7 Absolute Lymphs (auto) 2.12 Total Counted Not Reportable Sodium 138 Potassium 3.9 Chloride 104 Carbon Dioxide 27.0 Anion Gap 7 BUN 28 H Creatinine 0.90 Estim Creat Clear Calc 50.60 Est GFR (MDRD) Af Amer 81 Est GFR (MDRD) Non-Af 67 BUN/Creatinine Ratio 31.1 H Glucose 221 H Calcium 8.9 Iron 39 L TIBC 333 Iron Saturation 11.7 L Ferritin 154 Total Bilirubin 0.60 AST 43 H ALT 141 H Alkaline Phosphatase 159 H Total Protein 7.4 Albumin 2.7 L Globulin 4.7 H Albumin/Globulin Ratio 0.6 L Vitamin B12 Folate 13.30 12/31/18 04:30 WBC RBC Hgb Hct MCV MCH MCHC RDW RDW Differential Plt Count MPV Immature Gran % (Auto) Neut % (Auto) Lymph % (Auto) [place] % (Auto) Eos % (Auto) Baso % (Auto) Absolute Neuts (auto) Absolute Lymphs (auto) Total Counted Sodium Potassium Chloride Carbon Dioxide Anion Gap BUN Creatinine Estim Creat Clear Calc Est GFR (MDRD) Af Amer Est GFR (MDRD) Non-Af BUN/Creatinine Ratio Glucose Calcium Iron TIBC Iron Saturation Ferritin Total Bilirubin AST ALT Alkaline Phosphatase Total Protein Albumin Globulin Albumin/Globulin Ratio Vitamin B12 1524 H Folate POC Glucose 12/30/18 12/30/18 12/30/18 21:47 16:41 11:29 POC Glucose 214 H 249 H 254 H Clinical Impression(s) from Imaging Studies Chest X-Ray 12/27/18 19:27 IMPRESSION: Mild cardiomegaly. Remainder is within normal limits. Electronically Signed: Tino Deng DO at 19:49 EDT Tel , Service support , Abdomen Ultrasound 12/28/18 08:37 IMPRESSION: Enlarged fatty liver. Trace perihepatic fluid. Mild cortical thinning of the right kidney. Status post cholecystectomy. Mild prominence of the common bile duct. Electronically Signed: Sanjay Cabrera DO at 20:50 EDT Tel [phone], Service support , Medical Necessity - Tobacco Use Smoking Status: Former smoker Assessment/Plan All Active Problems (Last Updated 12/28/18 @ 11:25 by Kaitlin Pendleton) S/P drug eluting coronary stent placement (Acute ~12/28/18) NSTEMI (non-ST elevated myocardial infarction) (Acute) Unstable angina (Acute) Chest pain (Acute) RECOMMENDATIONS: 1. Continue diuretic therapy as tolerated by renal function. 2. Discontinue supplemental oxygen at rest, as it is clearly not indicated. 3. Agree with discontinuation of Brilinta. 4. Continue to encourage incentive spirometer use and mobilize patient as tolerated. 5. Outpatient PFTs can be obtained upon discharge, if the patient continues to experience exertional shortness of breath. IMPRESSIONS: 1. Exertional shortness of breath While the patient does report a mild history of exertional dyspnea, she did report that it significantly worsened in the time leading up to her hospitalization. Her chest pain has resolved following PCI. The patient was noted to have normal oxygen saturations at rest on room air. With ambulation in the hallway yesterday, her kassandra oxygen saturation was 89 to 90%. She does report some subjective improvement in her perceived dyspnea following the initiation of diuretic therapy. Agree with continuing diuresis as tolerated by renal function. In addition, there is some concern that the patient's Brilinta may also be contributing to her perceived dyspnea. Therefore, the medication was discontinued and the patient was placed on Plavix. If the patient's exertional dyspnea does not respond to diuretic therapy, would recommend outpatient pulmonary follow-up so that PFTs can be obtained. Continue to encourage incentive spirometer use and mobilize patient as tolerated. 2. Non-ST segment elevation MD The patient is now status post PCI with drug-eluting stent placement to the LAD. Continue current medical management per cardiology recommendations. 3. Elevated transaminase levels Likely secondary to fatty liver disease identified on ultrasound. 4. Obesity/diabetes mellitus/hypertension/hyperlipidemia/depression Complicates care, management, recovery and prognosis. Continue home medications as indicated. Weight loss is advisable. This note was generated with [employer] dictation software. It may contain incorrect words, spelling, and punctuation that were not noted in checking the note before signing. Code Visit Inpatient E&M: 17449 Subs Hosp L2
[2018-12-31] MEDS: Atenolol 50 MG Tablet PO (09:02)
[2018-12-31] MEDS: Lisinopril 5 MG Tablet PO (09:02)
[2018-12-31] MEDS: FLUoxetine 20 MG Capsule 40 MG PO (09:03)
[2018-12-31] MEDS: Aspirin E.C. 81 MG Tablet PO (09:03)
[2018-12-31] MEDS: Enoxaparin 40 MG/0.4 ML Syringe SC (09:03)
[2018-12-31] MEDS: Isosorbide Mononitrate 30 MG Tablet PO (09:03)
[2018-12-31] MEDS: busPIRone 5 MG Tablet 10 MG PO ×2 (09:04→21:59)
--- NOTE | 2018-12-31 09:33 | PN.CARD_ITS ---
Subjectve: The patient is awake and alert. She has been up in the chair and up and ambulating with OT/PT. She notes she feels somewhat better with her breathing but is still short of breath and dyspneic with exertion. She denies any chest discomfort. Objective: Vital Signs Temp Pulse Resp BP Pulse Ox 98.5 F 81 22 H 115/59 L 98 12/31/18 09:02 12/31/18 09:02 12/31/18 09:02 12/31/18 09:02 12/31/18 09:02 Oxygen Flow Rate (L/min) 2 Oxygen Delivery Method Nasal Cannula Weight: 248 lb 3.848 oz Body Mass Index (BMI) 44.2 Intake and Output for Last 24 Hours 12/29/18 12/30/18 12/31/18 23:59 23:59 23:59 Intake Total 760 / 760 840 / 840 360 / 360 Output Total 200 / 200 Balance 560 / 560 840 / 840 360 / 360 General: Awake, Alert, Oriented x 3, Cooperative, No Acute Distress, Obese HEENT: Atraumatic, Normocephalic, PERRL, EOMI, Sclera Non Icteric Oral: Moist Mucosa Neck: Supple, Good ROM, No JVD Lungs: Diminished Tyorne Bases - Improved compared to previous examination Cardiovascular: Regular Rhythm, Normal S1, Normal S2 Abdomen: Bowel Sounds Present, Soft, Non Tender Extremities: Trace RLE Edema, Trace LLE Edema Psych/Mental Status: Appropriate 12/30/18 05:55: Iron 39 L, TIBC 333, Iron Saturation 11.7 L, Ferritin 154 12/31/18 04:30: Sodium 138, Potassium 3.9, Chloride 104, Carbon Dioxide 27.0, Anion Gap 7, BUN 28 H, Creatinine 0.90, Est GFR (MDRD) Af Amer 81, Est GFR (MDRD) Non-Af 67, BUN/Creatinine Ratio 31.1 H, Glucose 221 H, Calcium 8.9, Total Bilirubin 0.60 12/31/18 04:30: WBC 6.7, RBC 4.13 L, Hgb 11.9 L, Hct 36.9 L, MCV 89.3, MCH 28.8, MCHC 32.2, RDW 14.2, RDW Differential 45.3 H, Plt Count 209, MPV 11.2, Immature Gran % (Auto) 0.500, Neut % (Auto) 55.5, Lymph % (Auto) 31.9, [place] % (Auto) 6.6, Eos % (Auto) 5.0, Baso % (Auto) 0.5, Absolute Neuts (auto) 3.7, Total Counted Not Reportable Rhythm: Sinus rhythm ECHO: 12-30-18 Interpretation Summary The study was technically difficult. Limited views were obtained. Segmental dysfunction with preserved ejection fraction (see wall motion). The estimated ejection fraction is 60 %. The left atrium is mildly enlarged. Trivial mitral valve insufficiency. Trivial tricuspid valve insufficiency. Unable to estimate RV systolic pressure/pulmonary artery pressure due to technically difficult study. Bubble contrast study negative for right to left interatrial shunt. Medical Necessity - Tobacco Use Smoking Status: Former smoker Assessment/Plan 1. Unstable angina pectoris/non-ST segment elevation TN She is now status post diagnostic cardiac catheterization and subsequent LAD PCI. She appears to be improving with respect to her chest discomfort. She continues to have concerns of shortness of breath and dyspnea especially with movement. This may have improved somewhat with diuretic therapy. She has also been evaluated by pulmonology. Dr. Garnica's consult has been appreciated. A component of her shortness of breath and dyspnea may be related to her antiplatelet therapy with respect to Brilinta. Thus it may be reasonable to alter this to clopidogrel/Plavix. She will continue medical management with adjustment as needed. She will eventually need outpatient cardiovascular follow-up and cardiac rehabilitation therapy. 2. Hyperlipidemia She can have her lipids reassessed. She will need to continue medical therapy with her statins. 3. Hypertension Her blood pressures are being followed. Her medications can be adjusted as needed. 4. Diabetes mellitus She will need to continue under evaluation care by internal medicine. 5. Elevated hepatic transaminases The patient's hepatic transaminases are elevated. Hopefully she can continue her statin therapy which is beneficial with respect to her cardiovascular risk profile. 6. Dyspnea Again she remains dyspneic especially with exertion. She has had some improvement with respect to her dyspnea with exertion status post diuretic therapy. She will continue medical therapy including diuretics at this time. However as noted above there may be a concern as to whether or not the Brilinta is contributing to her dyspnea as this appears to be more prominent since her hospitalization and initiation of this medication. Thus this will be altered to clopidogrel/Plavix. Her clinical course will need to be followed. Comment: The patient's case has also been discussed with Dr. Garnica. This note was generated with [employer] dictation software. It may contain incorrect words, spelling, and punctuation that were not noted in checking the note before signing.
--- NOTE | 2018-12-31 10:54 | PCM.PN.HOSP ---
Patient Problems: Active and Suspected Problems (Last Updated 12/28/18 @ 11:25 by Kaitlin Pendleton) NSTEMI (non-ST elevated myocardial infarction) (Acute) Unstable angina (Acute) Chest pain (Acute) Subjective: Patient is still mild short of breath on exertion. On 2 L of oxygen through nasal cannula. Denies chest pain. Dr. Díaz changed Brilinta to Plavix as Brilinta has some side effect leading to shortness of breath Vitals/I&O's: Vital Signs Temp Pulse Resp BP Pulse Ox 98.5 F 81 22 H 115/59 L 98 12/31/18 09:02 12/31/18 09:02 12/31/18 09:02 12/31/18 09:02 12/31/18 09:02 Oxygen Flow Rate (L/min) 2 Oxygen Delivery Method Nasal Cannula Weight: 248 lb 3.848 oz Body Mass Index (BMI) 44.2 Intake and Output for Last 24 Hours 12/29/18 12/30/18 12/31/18 23:59 23:59 23:59 Intake Total 760 / 760 840 / 840 360 / 360 Output Total 200 / 200 Balance 560 / 560 840 / 840 360 / 360 General: Alert, Oriented x3, Cooperative HEENT: Atraumatic, PERRLA, EOMI, Normocephalic Neck: Supple, No JVD, Negative Carotid Bruits Lungs: Clear to auscultation, No rhonchi, No wheeze, No rales, Diminished Cardiovascular: Regular rate, Regular Rhythm, Normal S1, Normal S2, No murmurs Abdomen: Bowel Sounds Present, Soft, Non Tender, Non-Distended Extremities: Capillary Refill Less than 3 Seconds, Edema Skin: No rashes, No breakdown Musculoskeletal: No Tenderness to Palpation of Joints or Extremities, Arthritic Changes Neurological: Cranial nerves II-XII grossly intact Psych/Mental Status: Normal Affect, Appropriate Laboratory Results 12/30/18 05:55: Iron 39 L, TIBC 333, Iron Saturation 11.7 L, Ferritin 154 12/30/18 11:29: POC Glucose 254 H 12/30/18 16:41: POC Glucose 249 H 12/30/18 21:47: POC Glucose 214 H 12/31/18 04:30: Sodium 138, Potassium 3.9, Chloride 104, Carbon Dioxide 27.0, Anion Gap 7, BUN 28 H, Creatinine 0.90, Estim Creat Clear Calc 50.60, Est GFR (MDRD) Af Amer 81, Est GFR (MDRD) Non-Af 67, BUN/Creatinine Ratio 31.1 H, Glucose 221 H, Calcium 8.9, Total Bilirubin 0.60, AST 43 H, ALT 141 H, Alkaline Phosphatase 159 H, Total Protein 7.4, Albumin 2.7 L, Globulin 4.7 H, Albumin/Globulin Ratio 0.6 L, Folate 13.30 12/31/18 04:30: WBC 6.7, RBC 4.13 L, Hgb 11.9 L, Hct 36.9 L, MCV 89.3, MCH 28.8, MCHC 32.2, RDW 14.2, RDW Differential 45.3 H, Plt Count 209, MPV 11.2, Immature Gran % (Auto) 0.500, Neut % (Auto) 55.5, Lymph % (Auto) 31.9, [place] % (Auto) 6.6, Eos % (Auto) 5.0, Baso % (Auto) 0.5, Absolute Neuts (auto) 3.7, Absolute Lymphs (auto) 2.12, Total Counted Not Reportable 12/31/18 04:30: Vitamin B12 1524 H 12/31/18 06:45: POC Glucose 216 H Current Medications Acetaminophen (Tylenol) 650 mg PO Q6H PRN PRN PRN Reason: Fever, headache, pain Last Admin: 12/30/18 16:45 Dose: 650 mg [facility] Last Admin: 12/31/18 09:03 Dose: 81 mg Atenolol (Tenormin (Beta Shane)) 50 mg PO DAILY [facility] Last Admin: 12/31/18 09:02 Dose: 50 mg Atropine Sulfate () 0.5 mg IV UD PRN PRN Reason: HR <50 bpm Buspirone HCl (Buspar) 10 mg PO BID [facility] Last Admin: 12/31/18 09:04 Dose: 10 mg Clopidogrel Bisulfate (Plavix) 75 mg PO DAILY [facility] Enoxaparin Sodium (Lovenox) 40 mg SC DAILY [facility] Last Admin: 12/31/18 09:03 Dose: 40 mg Ferrous Sulfate (Ferrous Sulfate) 325 mg PO 1200,1700 [facility] Last Admin: 12/30/18 18:30 Dose: 325 mg Fluoxetine HCl (Prozac) 40 mg PO DAILY [facility] Last Admin: 12/31/18 09:03 Dose: 40 mg Sodium Chloride () 1,000 mls @ 15 mls/hr IV .Q48H [facility] Last Admin: 12/30/18 10:03 Dose: Not Given Insulin Human Lispro (Humalog Kwikpen (Bkc)) 0 unit SC [facility]; Protocol Last Admin: 12/31/18 06:49 Dose: 2 u Isosorbide Mononitrate (Imdur) 30 mg PO DAILY [facility] Last Admin: 12/31/18 09:03 Dose: 30 mg Lisinopril (Zestril) 5 mg PO DAILY [facility] Last Admin: 12/31/18 09:02 Dose: 5 mg Morphine Sulfate () 1 mg IV Q3H PRN PRN PRN Reason: SEVERE PAIN (6-10/10) Ondansetron HCl (Zofran) 4 mg IV Q6H PRN PRN PRN Reason: NAUSEA/VOMITING Last Admin: 12/28/18 17:45 Dose: 4 mg Pravastatin Sodium (Pravachol) 80 mg PO QHS [facility] Last Admin: 12/30/18 21:54 Dose: 80 mg Sodium Chloride () 5 - 15 ml IV UD PRN PRN Reason: SALINE FLUSH Last Admin: 12/29/18 11:12 Dose: 10 ml Trazodone HCl (Desyrel) 100 mg PO QHS [facility] Last Admin: 12/30/18 21:53 Dose: 100 mg Medical Necessity - Tobacco Use Smoking Status: Former smoker Assessment/Plan All Active Problems (Last Updated 12/28/18 @ 11:25 by Kaitlin Pendleton) S/P drug eluting coronary stent placement (Acute ~12/28/18) NSTEMI (non-ST elevated myocardial infarction) (Acute) Unstable angina (Acute) Chest pain (Acute) This is a 63 years old female patient presented to the emergency room because of shortness of breath and chest pain, found to have abnormal cardiac enzymes and she is being admitted for evaluation and treatment. Patient had elevated troponins #1 Unstable angina/non-STEMI: The patient is being admitted in ICU after PCI of single vessel coronary artery, proximal and mid LAD. EKG revealed nonspecific ST-T abnormality in the anterolateral leads and subsequent loss of R wave in precordial lead V3.. It did not meet criteria for STEMI. Subsequently, patient was started on IV heparin drip, nitroglycerin drip, loading dose of Brilinta and then cardiac cath. Initially on aspirin, Brilinta, atenolol and lisinopril. On pravastatin. LDL 91. Brilinta is changed to Plavix. Rest of the medications remain same Echo reviewed with the patient. EF 65% with mid anteroseptal and anterior apex hypokinetic. trivial MR, TR. Diastolic function indeterminate. #2 Dyspnea/hypoxia, etiology unclear but possible secondary to : Discussed with Dr. Díaz. Will continue diuretic. As per the echo, patient does not have cardiac shunt or significant valvular abnormality to account for shortness of breath. Echo shows EF 65%. Seen by wharf operator and recommended walking pulse oximetry, incentive spirometry. Iron studies ordered by wharf operator and shows iron deficiency anemia. Serum iron 39, TIBC 333, iron saturation 11.7%. Ferritin 154. Started on ferrous sulfate 325 mg twice daily. Folate 13.3. B12 1524. Dr. Garnica advised to discontinue supplemental oxygen at rest. Walking pulse oximetry. Follow-up in pulmonary clinic as outpatient for PFT and sleep studies. Sinus tachycardia: Patient mentioned that she had a history of tachycardia and palpitation, has been on propanolol.TSH 2.45. #3 type 2 diabetes mellitus: ADA diet, Accu-Cheks, insulin sliding scale, continue home doses of Lantus, continue glimepiride, hold metformin. #4 hypertension: Blood pressure was elevated but controlled now, continue atenolol and lisinopril, hold HCTZ. #5 depression: Continue trazodone. #6 hyperlipidemia: Continue statins. 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 No abdominal pain or tenderness. In fact, she does not know previous history of elevated transaminases or hepatobiliary issues except cholecystectomy in the past. AST 159 H, ALT 209 H, Alkaline Phosphatase 126 H. There is no previous imaging of liver/hepatobiliary system in our EMR. Repeat LFT shows improvement in transaminases. Right upper quadrant sonogram reported as Enlarged fatty liver. Trace perihepatic fluid. Status post cholecystectomy. Mild prominence of the common bile duct; 8 mm. DVT prophylaxis: Resume after 24 hours of PCI. Active Medications Acetaminophen (Tylenol) 650 mg PO Q6H PRN PRN PRN Reason: Fever, headache, pain Last Admin: 12/31/18 15:34 Dose: 650 mg [facility]cotrin) [facility] Last Admin: 12/31/18 09:03 Dose: 81 mg Atenolol (Tenormin (Beta Shane)) 50 mg PO DAILY [facility] Last Admin: 12/31/18 09:02 Dose: 50 mg Atropine Sulfate () 0.5 mg IV UD PRN PRN Reason: HR <50 bpm Buspirone HCl (Buspar) 10 mg PO BID [facility] Last Admin: 12/31/18 09:04 Dose: 10 mg Clopidogrel Bisulfate (Plavix) 75 mg PO DAILY [facility] Enoxaparin Sodium (Lovenox) 40 mg SC DAILY [facility] Last Admin: 12/31/18 09:03 Dose: 40 mg Ferrous Sulfate (Ferrous Sulfate) 325 mg PO 1200,1700 [facility] Last Admin: 12/31/18 13:24 Dose: 325 mg Fluoxetine HCl (Prozac) 40 mg PO DAILY [facility] Last Admin: 12/31/18 09:03 Dose: 40 mg Sodium Chloride () 1,000 mls @ 15 mls/hr IV .Q48H [facility] Last Admin: 12/30/18 10:03 Dose: Not Given Insulin Human Lispro (Humalog Kwikpen (Bkc)) 0 unit SC [facility]; Protocol Last Admin: 12/31/18 11:32 Dose: 4 u Isosorbide Mononitrate (Imdur) 30 mg PO DAILY [facility] Last Admin: 12/31/18 09:03 Dose: 30 mg Lisinopril (Zestril) 5 mg PO DAILY [facility] Last Admin: 12/31/18 09:02 Dose: 5 mg Morphine Sulfate () 1 mg IV Q3H PRN PRN PRN Reason: SEVERE PAIN (6-10/10) Ondansetron HCl (Zofran) 4 mg IV Q6H PRN PRN PRN Reason: NAUSEA/VOMITING Last Admin: 12/28/18 17:45 Dose: 4 mg Pravastatin Sodium (Pravachol) 80 mg PO QHS [facility] Last Admin: 12/30/18 21:54 Dose: 80 mg Sodium Chloride () 5 - 15 ml IV UD PRN PRN Reason: SALINE FLUSH Last Admin: 12/31/18 11:33 Dose: 10 ml Trazodone HCl (Desyrel) 100 mg PO QHS [facility] Last Admin: 12/30/18 21:53 Dose: 100 mg Clinical Impression(s) from Imaging Studies Chest X-Ray 12/27/18 19:27 IMPRESSION: Mild cardiomegaly. Remainder is within normal limits. Electronically Signed: Tino Deng DO at 19:49 EDT Tel , Service support , Abdomen Ultrasound 12/28/18 08:37 IMPRESSION: Enlarged fatty liver. Trace perihepatic fluid. Mild cortical thinning of the right kidney. Status post cholecystectomy. Mild prominence of the common bile duct. Code Visit Inpatient E&M: 14549 Subs Hosp L2
[2018-12-31] MEDS: Furosemide 40 MG/4 ML Vial IV (11:32)
[2018-12-31] MEDS: Clopidogrel Bisulfate 300 MG Tablet 600 MG PO (11:32)
[2018-12-31] MEDS: 0.9% NaCl Peripheral Flush Adult/Peds IV (11:33)
[2018-12-31 12:01] LABS: Bedside Glucose 301 mg/dL (70-110)
[2018-12-31] MEDS: Ferrous Sulfate 325 MG Tablet PO ×2 (13:24→16:55)
--- NOTE | 2018-12-31 13:26 | CASEMGMT ---
This RN CM to room to discuss discharge planning with pt at this time. Advised pt that therapy is recommending further addl therapy at discharge, pt voices understanding and states declines therapy at this time. She states that she is excited to do cardiac rehab in several weeks and states will be f/u with pulmonary in the mean time. Pt voices no further questions/concerns/needs at this time. Pt did not qualify for home oxygen. SStsocorro BAUER CM
[2018-12-31] MEDS: Acetaminophen 325 MG Tablet 650 MG PO (15:34)
[2018-12-31 17:06] LABS: Bedside Glucose 224 mg/dL (70-110)
[2018-12-31] MEDS: traZODone 100 MG Tablet PO (21:59)
[2018-12-31] MEDS: Pravastatin 80 MG Tablet PO (22:01)
[2018-12-31 22:15] LABS: Bedside Glucose 210 mg/dL (70-110)
[2019-01-01] VITALS (11 sets, daily range): BP systolic 97–136; BP diastolic 59–73; PULSE 62–71; RESP 18; TEMP 36.6–37.1; O2SAT 87–96
[2019-01-01] MEDS: Acetaminophen 325 MG Tablet 650 MG PO (02:14)
[2019-01-01] MEDS: Insulin Lispro 100 UNIT/ML INSULN.PEN SC ×3 (06:35→16:26)
[2019-01-01 06:51] LABS: Bedside Glucose 164 mg/dL (70-110)
--- NOTE | 2019-01-01 06:59 | PN_ITS ---
Patient Problems: Active and Suspected Problems (Last Updated 12/28/18 @ 11:25 by Kaitlin Pendleton) NSTEMI (non-ST elevated myocardial infarction) (Acute) Unstable angina (Acute) Chest pain (Acute) Subjective: The patient was seen and examined at the bedside this morning. Events from the last 24 hours have been reviewed. The patient is currently afebrile, hemodynamically stable and maintaining appropriate oxygen saturations on room air. The patient's Brilinta was discontinued yesterday. The patient did receive IV diuretic therapy again yesterday. This morning, the patient reports that, while she is still experiencing exertional shortness of breath, it is certainly less intense than previous. She does report an interest in following up in the pulmonary medicine clinic so that baseline PFTs can be obtained. Objective: The patient's most recent lab work, culture data and imaging studies have all been personally reviewed. A repeat surface echocardiogram completed on December 30 revealed segmental LV dysfunction with an ejection fraction of 60%. Bubble contrast was negative for right to left intra-atrial shunt. The right ventricular systolic pressure was unable to be estimated. - Physical Exam General: Alert, Oriented x3, Cooperative, No apparent distress, - - Morbidly obese. Sitting in bedside recliner. HEENT: Atraumatic, PERRLA, Normocephalic Oral: Moist Mucosa, No Gingival or Mucosal Lesions/ Ulcerations Neck: Supple, No Nodes, Trachea Midline Lungs: No rhonchi, No wheeze, No rales, Diminished Cardiovascular: Regular rate, Regular Rhythm, Normal S1, Normal S2, No murmurs Abdomen: Bowel Sounds Present, Soft, Non Tender, Non-Distended, Obese Extremities: No clubbing, No cyanosis, Edema Skin: No breakdown Musculoskeletal: No Tenderness to Palpation of Joints or Extremities, No Muscle Wasting Lymphatic: No Cervical, Supraclavicular, or Inguinal Adenopathy Neurological: Cranial nerves II-XII grossly intact, Neuro grossly intact Psych/Mental Status: Alert and oriented to time, place, person, mood and affect Vital Signs Temp Pulse Resp BP Pulse Ox 97.8 F 65 18 113/61 94 01/01/19 06:31 01/01/19 06:31 01/01/19 06:31 01/01/19 06:31 01/01/19 06:31 Oxygen Flow Rate (L/min) 2 Oxygen Delivery Method Room Air Weight: 245 lb 13.047 oz Body Mass Index (BMI) 44.2 Intake and Output for Last 24 Hours 12/30/18 12/31/18 01/01/19 23:59 23:59 23:59 Intake Total 840 / 840 1625 / 1625 Output Total 600 / 600 Balance 840 / 840 1025 / 1025 POC Glucose 01/01/19 12/31/18 12/31/18 06:33 21:57 16:52 POC Glucose 164 H 210 H 224 H 12/31/18 12/31/18 11:30 06:45 POC Glucose 301 H 216 H Labs (Last 48 Hours) 12/30/18 12/30/18 12/30/18 05:55 11:29 16:41 WBC RBC Hgb Hct MCV MCH MCHC RDW RDW Differential Plt Count MPV Immature Gran % (Auto) Neut % (Auto) Lymph % (Auto) [place] % (Auto) Eos % (Auto) Baso % (Auto) Absolute Neuts (auto) Absolute Lymphs (auto) Total Counted Sodium Potassium Chloride Carbon Dioxide Anion Gap BUN Creatinine Estim Creat Clear Calc Est GFR (MDRD) Af Amer Est GFR (MDRD) Non-Af BUN/Creatinine Ratio Glucose Calcium Iron 39 L TIBC 333 Iron Saturation 11.7 L Ferritin 154 Total Bilirubin AST ALT Alkaline Phosphatase Total Protein Albumin Globulin Albumin/Globulin Ratio Vitamin B12 Folate POC Glucose 254 H 249 H 12/30/18 12/31/18 12/31/18 21:47 04:30 04:30 WBC 6.7 RBC 4.13 L Hgb 11.9 L Hct 36.9 L MCV 89.3 MCH 28.8 MCHC 32.2 RDW 14.2 RDW Differential 45.3 H Plt Count 209 MPV 11.2 Immature Gran % (Auto) 0.500 Neut % (Auto) 55.5 Lymph % (Auto) 31.9 [place] % (Auto) 6.6 Eos % (Auto) 5.0 Baso % (Auto) 0.5 Absolute Neuts (auto) 3.7 Absolute Lymphs (auto) 2.12 Total Counted Not Reportable Sodium 138 Potassium 3.9 Chloride 104 Carbon Dioxide 27.0 Anion Gap 7 BUN 28 H Creatinine 0.90 Estim Creat Clear Calc 50.60 Est GFR (MDRD) Af Amer 81 Est GFR (MDRD) Non-Af 67 BUN/Creatinine Ratio 31.1 H Glucose 221 H Calcium 8.9 Iron TIBC Iron Saturation Ferritin Total Bilirubin 0.60 AST 43 H ALT 141 H Alkaline Phosphatase 159 H Total Protein 7.4 Albumin 2.7 L Globulin 4.7 H Albumin/Globulin Ratio 0.6 L Vitamin B12 Folate 13.30 POC Glucose 214 H 12/31/18 12/31/18 12/31/18 04:30 06:45 11:30 WBC RBC Hgb Hct MCV MCH MCHC RDW RDW Differential Plt Count MPV Immature Gran % (Auto) Neut % (Auto) Lymph % (Auto) [place] % (Auto) Eos % (Auto) Baso % (Auto) Absolute Neuts (auto) Absolute Lymphs (auto) Total Counted Sodium Potassium Chloride Carbon Dioxide Anion Gap BUN Creatinine Estim Creat Clear Calc Est GFR (MDRD) Af Amer Est GFR (MDRD) Non-Af BUN/Creatinine Ratio Glucose Calcium Iron TIBC Iron Saturation Ferritin Total Bilirubin AST ALT Alkaline Phosphatase Total Protein Albumin Globulin Albumin/Globulin Ratio Vitamin B12 1524 H Folate POC Glucose 216 H 301 H 12/31/18 12/31/18 01/01/19 16:52 21:57 06:33 WBC RBC Hgb Hct MCV MCH MCHC RDW RDW Differential Plt Count MPV Immature Gran % (Auto) Neut % (Auto) Lymph % (Auto) [place] % (Auto) Eos % (Auto) Baso % (Auto) Absolute Neuts (auto) Absolute Lymphs (auto) Total Counted Sodium Potassium Chloride Carbon Dioxide Anion Gap BUN Creatinine Estim Creat Clear Calc Est GFR (MDRD) Af Amer Est GFR (MDRD) Non-Af BUN/Creatinine Ratio Glucose Calcium Iron TIBC Iron Saturation Ferritin Total Bilirubin AST ALT Alkaline Phosphatase Total Protein Albumin Globulin Albumin/Globulin Ratio Vitamin B12 Folate POC Glucose 224 H 210 H 164 H Clinical Impression(s) from Imaging Studies Chest X-Ray 12/27/18 19:27 IMPRESSION: Mild cardiomegaly. Remainder is within normal limits. Electronically Signed: Tino Deng DO at 19:49 EDT Tel , Service support , Abdomen Ultrasound 12/28/18 08:37 IMPRESSION: Enlarged fatty liver. Trace perihepatic fluid. Mild cortical thinning of the right kidney. Status post cholecystectomy. Mild prominence of the common bile duct. Electronically Signed: Sanjay Cabrera DO at 20:50 EDT Tel [phone], Service support , Chest X-Ray 12/31/18 07:00 IMPRESSION: No acute pulmonary process Electronically Signed: Ok Chakraborty MD at 8:51 EDT , Service support , Medical Necessity - Tobacco Use Smoking Status: Former smoker Assessment/Plan All Active Problems (Last Updated 12/28/18 @ 11:25 by Kaitlin Pendleton) S/P drug eluting coronary stent placement (Acute ~12/28/18) NSTEMI (non-ST elevated myocardial infarction) (Acute) Unstable angina (Acute) Chest pain (Acute) RECOMMENDATIONS: 1. Continue to encourage incentive spirometer use and mobilize patient as tolerated. 2. Perform a walking oximetry study today and document exertional oxygen saturations. 3. Continue diuretic therapy, per the discretion of cardiology. 4. Recommend outpatient pulmonary follow-up within 2 weeks of discharge. Base line pulmonary function studies can be ordered at that time. IMPRESSIONS: 1. Exertional shortness of breath While the patient does report a mild history of exertional dyspnea, she did report that it significantly worsened in the time leading up to her hospitalization. Her chest pain has resolved following PCI. The patient was noted to have normal oxygen saturations at rest on room air. The patient's plain film chest imaging studies have not demonstrated any acute cardiopulmonary process. She did report some subjective improvement in her perceived dyspnea with diuretic therapy. There was also concern that the patient's Brilinta may have also been contributing to her perceived dyspnea. Therefore, the medication was discontinued and the patient was placed on Plavix. Although the patient has a relatively limited, remote smoking history, she is interested in following up in the pulmonary medicine clinic so that baseline pulmonary function studies can be obtained. I would recommend performing an ambulatory oximetry study today. If the patient is able to maintain appropriate oxygen saturations with exertion, as per previous, she can be discharged from my perspective and follow-up in the pulmonary medicine clinic within 2 weeks. Continue to encourage incentive spirometer use and mobilize patient as tolerated. 2. Non-ST segment elevation TX The patient is now status post PCI with drug-eluting stent placement to the LAD. Continue current medical management per cardiology recommendations. 3. Elevated transaminase levels Likely secondary to fatty liver disease identified on ultrasound. 4. Obesity/diabetes mellitus/hypertension/hyperlipidemia/depression Complicates care, management, recovery and prognosis. Continue home medications as indicated. Weight loss is advisable. This note was generated with ethology dictation software. It may contain incorrect words, spelling, and punctuation that were not noted in checking the note before signing. Code Visit Inpatient E&M: 06360 Subs Hosp L2
[2019-01-01 08:16] LABS: Anion Gap 6 (5-15); BUN 31 mg/dL (7-18); BUN/Creat Ratio 36.3 RATIO (10-20); Calcium,Total 8.9 mg/dL (8.5-10.1); Chloride 104 mmol/L (98-107); Creatinine, Serum 0.85 mg/dL (0.55-1.02); EST Glomerular Filtration Rate 71 mL/min (>60); Est Glom Filt Rate - Afr Amer 86 mL/min (>60); Estimated Creatinine Clearance 53.58 ml/min; Glucose 183 mg/dL (74-106); Potassium 3.8 mmol/L (3.5-5.1); Sodium Level 137 mmol/L (136-145)
[2019-01-01] MEDS: Enoxaparin 40 MG/0.4 ML Syringe SC (09:07)
[2019-01-01] MEDS: Isosorbide Mononitrate 30 MG Tablet PO (09:07)
[2019-01-01] MEDS: Aspirin E.C. 81 MG Tablet PO (09:07)
[2019-01-01] MEDS: busPIRone 5 MG Tablet 10 MG PO (09:07)
[2019-01-01] MEDS: Atenolol 50 MG Tablet PO (09:08)
[2019-01-01] MEDS: Clopidogrel Bisulfate 75 MG Tablet PO (09:08)
[2019-01-01] MEDS: Lisinopril 5 MG Tablet PO (09:08)
[2019-01-01] MEDS: FLUoxetine 20 MG Capsule 40 MG PO (09:13)
[2019-01-01] MEDS: Ferrous Sulfate 325 MG Tablet PO ×2 (11:36→16:26)
[2019-01-01 11:51] LABS: Bedside Glucose 227 mg/dL (70-110)
--- NOTE | 2019-01-01 11:58 | DCINST_ITS ---
- Discharge Diagnoses Current Active Problems: Current Active and Chronic Problems (Last Updated 12/28/18 @ 11:25 by Kaitlin Pendleton) NSTEMI (non-ST elevated myocardial infarction) (Acute) Unstable angina (Acute) Tachycardia (Chronic) Depression (Chronic) Hyperlipidemia (Chronic) Type 2 diabetes mellitus (Chronic) Hypertension (Chronic) Chest pain (Acute) You will use the following diet at home:: Cardiac Your food should be the consistency of: Regular Your liquids should be the consistency of: Regular/Thin Discharge Activity: Return to Normal Activity Weight Bearing Status: Weight bearing as tolerated Call your doctor if you observe: Shortness of breath, Dizziness, Fainting spells, Swelling in the ankles, Chest pain Instructions: Symptoms of a Heart Attack, Understanding Coronary Artery Disease (CAD), Discharge Instructions for Heart Attack Additional Instructions: use oxygen by nasal canula for shortness of breath Allergies/Adverse Reactions: Allergies Sulfa (Sulfonamide Antibiotics) Allergy (Verified 12/27/18 18:36) Hives Medications to take at Discharge Aspirin [Aspir 81] 81 mg PO DAILY 12/27/18 Atenolol 50 mg PO DAILY 12/27/18 Buspirone HCl 10 mg PO BID 12/27/18 Fluoxetine HCl 40 mg PO DAILY 12/27/18 Glimepiride [Amaryl] 2 mg PO BID 12/27/18 Insulin Glargine,Hum.rec.anlog [Lantus] 18 - 23 unit SC QHS 12/27/18 Lisinopril 5 mg PO DAILY 12/27/18 Metformin HCl 500 mg PO TID 12/27/18 Pravastatin [Pravachol] 40 mg PO QHS 12/27/18 Propranolol HCl 20 - 40 mg PO TID PRN PRN 12/27/18 traZODone [Desyrel] 100 mg PO QHS 12/27/18 Clopidogrel Bisulfate [Plavix] 75 mg PO DAILY #30 tablet 01/01/19 Furosemide [Lasix] 40 mg PO DAILY #30 tablet 01/01/19 Pravastatin [Pravachol] 80 mg PO QHS #30 tablet 01/01/19 The following prescriptions were given: Clopidogrel Bisulfate [Plavix] 75 mg PO DAILY #30 tablet Furosemide [Lasix] 40 mg PO DAILY #30 tablet Pravastatin [Pravachol] 80 mg PO QHS #30 tablet Primary Care Physician: Nena Calvillo MD [Primary Care Provider] - Please follow up with your Primary Care Physician in: one week Test Results: Test results from this visit will be discussed in further detail at your follow- up appointment, if applicable. Please Follow Up With: Wisam Díaz MD When: one week Please Follow Up With: Leobardo Garnica DO When: 1-2 weeks Proposed Discharge Date: 01/01/19
--- NOTE | 2019-01-01 12:58 | PCM.PN.CARD ---
Subjectve: The patient looks better overall. She states she feels better overall. She is currently on room air oxygen. She has been up and ambulating. She states overall her breathing has improved but she still does get short of breath and dyspneic with ambulation. According to the [facility] nursing staff the OT/PT team reported that her O2 saturation did drop to less than 90% with ambulation. Objective: Vital Signs Temp Pulse Resp BP Pulse Ox 98.4 F 66 18 136/73 H 96 01/01/19 12:28 01/01/19 12:28 01/01/19 12:28 01/01/19 12:28 01/01/19 12:28 Oxygen Flow Rate (L/min) 2 Oxygen Delivery Method Room Air Weight: 245 lb 13.047 oz Body Mass Index (BMI) 44.2 Intake and Output for Last 24 Hours 12/30/18 12/31/18 01/01/19 23:59 23:59 23:59 Intake Total 840 / 840 1625 / 1625 600 / 600 Output Total 600 / 600 Balance 840 / 840 1025 / 1025 600 / 600 General: Awake, Alert, Oriented x 3, Cooperative, No Acute Distress, Obese HEENT: Atraumatic, Normocephalic, PERRL, EOMI, Sclera Non Icteric Oral: Moist Mucosa Neck: Supple, Good ROM, No JVD Lungs: Clear to auscultation Cardiovascular: Regular Rhythm, Normal S1, Normal S2 Abdomen: Bowel Sounds Present, Soft, Non Tender, Obese Neurological: No Focal Motor or Sensory Deficit Psych/Mental Status: Appropriate 01/01/19 07:12: Sodium 137, Potassium 3.8, Chloride 104, Carbon Dioxide 27.0, Anion Gap 6, BUN 31 H, Creatinine 0.85, Est GFR (MDRD) Af Amer 86, Est GFR (MDRD) Non-Af 71, BUN/Creatinine Ratio 36.3 H, Glucose 183 H, Calcium 8.9 Rhythm: Sinus rhythm Medical Necessity - Tobacco Use Smoking Status: Former smoker Assessment/Plan 1. Unstable angina pectoris/non-ST segment elevation NM She is now status post diagnostic cardiac catheterization and subsequent LAD PCI. She appears to be improving with respect to her chest discomfort. She continues to have concerns of shortness of breath and dyspnea especially with movement. This appears to have improved somewhat with diuresis and potentially with altering her antiplatelet therapy from Brilinta to clopidogrel/Plavix. She has also been evaluated by pulmonology. Dr. Garnica's consult has been appreciated. She will continue medical management with adjustment as needed. She will eventually need outpatient cardiovascular follow-up and cardiac rehabilitation therapy. 2. Hyperlipidemia She can have her lipids reassessed. She will need to continue medical therapy with her statins. 3. Hypertension Her blood pressures are being followed. Her medications can be adjusted as needed. 4. Diabetes mellitus She will need to continue under evaluation care by internal medicine. 5. Elevated hepatic transaminases The patient's hepatic transaminases are elevated. Hopefully she can continue her statin therapy which is beneficial with respect to her cardiovascular risk profile. 6. Dyspnea Again she remains dyspneic especially with exertion. She has had some improvement with respect to her dyspnea with exertion status post diuretic therapy and potentially altering her Brilinta to clopidogrel/Plavix. At the present time she will continue medical management. This may include an element of diuretic therapy. She will continue her clopidogrel/Plavix therapy. She was asked to be reassessed by the [facility] nursing staff with respect to ambulation and her O2 saturation as to whether or not she does become hypoxic and does require O2 therapy at home. Comment: The patient's case has also been discussed with Dr. Flynn. This note was generated with [employer] software. It may contain incorrect words, spelling, and punctuation that were not noted in checking the note before signing.
--- NOTE | 2019-01-01 13:01 | PN.CARD_ITS ---
Subjectve: The patient looks better overall. She states she feels better overall. She is currently on room air oxygen. She has been up and ambulating. She states overall her breathing has improved but she still does get short of breath and dyspneic with ambulation. According to the [facility] nursing staff the OT/PT team reported that her O2 saturation did drop to less than 90% with ambulation. Objective: Vital Signs Temp Pulse Resp BP Pulse Ox 98.4 F 66 18 136/73 H 96 01/01/19 12:28 01/01/19 12:28 01/01/19 12:28 01/01/19 12:28 01/01/19 12:28 Oxygen Flow Rate (L/min) 2 Oxygen Delivery Method Room Air Weight: 245 lb 13.047 oz Body Mass Index (BMI) 44.2 Intake and Output for Last 24 Hours 12/30/18 12/31/18 01/01/19 23:59 23:59 23:59 Intake Total 840 / 840 1625 / 1625 600 / 600 Output Total 600 / 600 Balance 840 / 840 1025 / 1025 600 / 600 General: Awake, Alert, Oriented x 3, Cooperative, No Acute Distress, Obese HEENT: Atraumatic, Normocephalic, PERRL, EOMI, Sclera Non Icteric Oral: Moist Mucosa Neck: Supple, Good ROM, No JVD Lungs: Clear to auscultation Cardiovascular: Regular Rhythm, Normal S1, Normal S2 Abdomen: Bowel Sounds Present, Soft, Non Tender, Obese Neurological: No Focal Motor or Sensory Deficit Psych/Mental Status: Appropriate 01/01/19 07:12: Sodium 137, Potassium 3.8, Chloride 104, Carbon Dioxide 27.0, Anion Gap 6, BUN 31 H, Creatinine 0.85, Est GFR (MDRD) Af Amer 86, Est GFR (MDRD) Non-Af 71, BUN/Creatinine Ratio 36.3 H, Glucose 183 H, Calcium 8.9 Rhythm: Sinus rhythm Medical Necessity - Tobacco Use Smoking Status: Former smoker Assessment/Plan 1. Unstable angina pectoris/non-ST segment elevation IN She is now status post diagnostic cardiac catheterization and subsequent LAD PCI. She appears to be improving with respect to her chest discomfort. She continues to have concerns of shortness of breath and dyspnea especially with movement. This appears to have improved somewhat with diuresis and potentially with altering her antiplatelet therapy from Brilinta to clopidogrel/Plavix. She has also been evaluated by pulmonology. Dr. Garnica's consult has been appreciated. She will continue medical management with adjustment as needed. She will eventually need outpatient cardiovascular follow-up and cardiac rehabilitation therapy. 2. Hyperlipidemia She can have her lipids reassessed. She will need to continue medical therapy with her statins. 3. Hypertension Her blood pressures are being followed. Her medications can be adjusted as needed. 4. Diabetes mellitus She will need to continue under evaluation care by internal medicine. 5. Elevated hepatic transaminases The patient's hepatic transaminases are elevated. Hopefully she can continue her statin therapy which is beneficial with respect to her cardiovascular risk profile. 6. Dyspnea Again she remains dyspneic especially with exertion. She has had some improvement with respect to her dyspnea with exertion status post diuretic therapy and potentially altering her Brilinta to clopidogrel/Plavix. At the present time she will continue medical management. This may include an element of diuretic therapy. She will continue her clopidogrel/Plavix therapy. She was asked to be reassessed by the [facility] nursing staff with respect to ambulation and her O2 saturation as to whether or not she does become hypoxic and does require O2 therapy at home. Comment: The patient's case has also been discussed with Dr. Flynn. This note was generated with [employer], [employer] software. It may contain incorrect words, spelling, and punctuation that were not noted in checking the note before signing.
[2019-01-01] MEDS: Furosemide 40 MG Tablet PO (13:45)
--- NOTE | 2019-01-01 15:22 | DS.PCM_ITS ---
Discharge Date and Diagnosis - Problem List Patient Problems: Active and Suspected Problems (Last Updated 12/28/18 @ 11:25 by Kaitlin Pendleton) NSTEMI (non-ST elevated myocardial infarction) (Acute) Unstable angina (Acute) Chest pain (Acute) Date of Admission: 12/27/18 Date of Discharge: 01/01/19 - Primary Discharge Diagnosis Active and Suspected Problems (Last Updated 12/28/18 @ 11:25 by Kaitlin Pendleton) NSTEMI (non-ST elevated myocardial infarction) (Acute) Unstable angina (Acute) Chest pain (Acute) acute hypoxic respiratory insufficiency - Secondary Discharge Diagnosis Chronic Problems (Last Updated 12/28/18 @ 11:25 by Kaitlin Pendleton) Atherosclerotic heart disease of [place] coronary artery without angina pectoris (Chronic) Tachycardia (Chronic) Depression (Chronic) Hyperlipidemia (Chronic) Type 2 diabetes mellitus (Chronic) Hypertension (Chronic) Hospital Course and Treatment Imaging Results: Diagnostic Data Abdomen Ultrasound 12/28/18 08:37 IMPRESSION: Enlarged fatty liver. Trace perihepatic fluid. Mild cortical thinning of the right kidney. Status post cholecystectomy. Mild prominence of the common bile duct. Electronically Signed: Sanjay Cabrera DO at 20:50 EDT Tel [phone], Service support , Chest X-Ray 12/31/18 07:00 IMPRESSION: No acute pulmonary process Electronically Signed: Ok Chakraborty MD at 8:51 EDT , Service support , cardiology- Dr Díaz Operations: None Procedures: 2-D Echocardiogram, Cardiac catheterization Summary of Care Provided: The patient is a 63 year old F with past medical history as listed. She was admitted through the ED on 12/27/2018 with a complaint of shortness of breath and chest pain which gradually worsened. Chest pain was not relieved even with resting. She came to the ED where EKG done showed first-degree AV block. She was also tachycardic and heart rate slowed down with demonstration of IV Lopressor. EKG also showed nonspecific T wave changes in lateral leads and repeat EKG showed normal sinus rhythm with no acute ST elevation. Chest x-ray showed cardiomegaly. Initial troponin was 0.2. She will start on heparin drip and IV nitro drip and given a loading dose of Brilinta and admitted and managed for unstable angina. Cardiology was consulted. She subsequently had cardiac cath with PCI and ALEAH placement in the proximal and mid LAD. Patient remained stable but subsequently started complaining of shortness of breath. On further questioning, stated the shortness of breath was intermittent and not been going on for about 3 months prior to admission. She required up to 2 L of oxygen to maintain saturation but still complain of exertional shortness of breath. 2D echo done showed left ventricular systolic dysfunction with preserved ejection fraction of 60% and diastolic function was indeterminate. There was no evidence of ASD and RVSP was unable to be estimated. She was placed on incentive spirometer and oxygen was continued to maintain saturations at or above 90%. Patient still remain short of breath with exertion even though it improved significantly after she was started on IV diuretic therapy. Of note, she had a right upper quadrant ultrasound done on account of elevated liver enzymes which showed an enlarged fatty liver and trace perihepatic fluid. Patient's Brilinta was discontinued as per cardiology, not a side effect of Brilinta with shortness of breath and the shortness of breath will take some time to resolve after Brilinta was discontinued. Patient was started on p.o. Plavix. She remained stable and was discharged home on 01/01/2019 with home health. Patient qualify for oxygen as her saturation dropped to 987% with ambulation and she required 2 L of oxygen to maintain saturation above 90%. She is to follow-up with her primary care doctor, with pulmonology and with cardiology. Patient seen and examined prior to discharge. She had no complaints. She denied any fever chills, chest pain or palpitation, dizziness, diarrhea vomiting. Review of systems otherwise negative. Labs and vitals reviewed. Home medication reviewed and reconciled. Patient Problems: Active and Suspected Problems (Last Updated 12/28/18 @ 11:25 by Kaitlin Pendleton) NSTEMI (non-ST elevated myocardial infarction) (Acute) Unstable angina (Acute) Chest pain (Acute) - Physical Exam General: Alert, Oriented x3, Cooperative, No apparent distress HEENT: Atraumatic, PERRLA, EOMI, Normocephalic Oral: Moist Mucosa Neck: Supple, No JVD, Negative Carotid Bruits Lungs: Clear to auscultation, Normal air movement, No rhonchi, No wheeze, No rales Cardiovascular: Regular rate, Regular Rhythm, Normal S1, Normal S2, No murmurs Abdomen: Bowel Sounds Present, Soft, Non Tender, Non-Distended, No Hepato- splenomegaly Extremities: No clubbing, No cyanosis, No edema, Capillary Refill Less than 3 Seconds Skin: No rashes, No breakdown Musculoskeletal: No Tenderness to Palpation of Joints or Extremities Lymphatic: No Cervical, Supraclavicular, or Inguinal Adenopathy Neurological: Cranial nerves II-XII grossly intact, Neuro grossly intact, Motor Exam 5/5 strength throughout Psych/Mental Status: Normal Affect, Appropriate, Alert and oriented to time, place, person, mood and affect Vital Signs Temp Pulse Resp BP Pulse Ox 98.4 F 66 18 136/73 H 96 01/01/19 12:28 01/01/19 12:28 01/01/19 12:28 01/01/19 12:28 01/01/19 12:28 Oxygen Flow Rate (L/min) 2 Oxygen Delivery Method Room Air Weight: 245 lb 13.047 oz Body Mass Index (BMI) 44.2 Intake and Output for Last 24 Hours 12/30/18 12/31/18 01/01/19 23:59 23:59 23:59 Intake Total 840 / 840 1625 / 1625 600 / 600 Output Total 600 / 600 Balance 840 / 840 1025 / 1025 600 / 600 Laboratory Tests Past 24 Hrs 01/01/19 07:12 Sodium 137 Potassium 3.8 Chloride 104 Carbon Dioxide 27.0 Anion Gap 6 BUN 31 H Creatinine 0.85 Estim Creat Clear Calc 53.58 Est GFR (MDRD) Af Amer 86 Est GFR (MDRD) Non-Af 71 BUN/Creatinine Ratio 36.3 H Glucose 183 H Calcium 8.9 POC Glucose 01/01/19 01/01/19 12/31/18 11:33 06:33 21:57 POC Glucose 227 H 164 H 210 H 12/31/18 16:52 POC Glucose 224 H Interpretation Summary The study was technically difficult. Limited views were obtained. Segmental dysfunction with preserved ejection fraction (see wall motion). The estimated ejection fraction is 60 %. The left atrium is mildly enlarged. Trivial mitral valve insufficiency. Trivial tricuspid valve insufficiency. Unable to estimate RV systolic pressure/pulmonary artery pressure due to technically difficult study. Bubble contrast study negative for right to left interatrial shunt. Discharge Diet: Low fat/ Low Cholesterol Discharge Activity: Return to Normal Activity Weight Bearing Status: Weight bearing as tolerated Call your doctor if you observe: Shortness of breath, Dizziness, Fainting spells, Swelling in the ankles, Chest pain Home Medications: Medications to take at Discharge Aspirin [Aspir 81] 81 mg PO DAILY 12/27/18 Atenolol 50 mg PO DAILY 12/27/18 Buspirone HCl 10 mg PO BID 12/27/18 Fluoxetine HCl 40 mg PO DAILY 12/27/18 Glimepiride [Amaryl] 2 mg PO BID 12/27/18 Insulin Glargine,Hum.rec.anlog [Lantus] 18 - 23 unit SC QHS 12/27/18 Lisinopril 5 mg PO DAILY 12/27/18 Metformin HCl 500 mg PO TID 12/27/18 Pravastatin [Pravachol] 40 mg PO QHS 12/27/18 Propranolol HCl 20 - 40 mg PO TID PRN PRN 12/27/18 traZODone [Desyrel] 100 mg PO QHS 12/27/18 Clopidogrel Bisulfate [Plavix] 75 mg PO DAILY #30 tablet 01/01/19 Furosemide [Lasix] 40 mg PO DAILY #30 tablet 01/01/19 Pravastatin [Pravachol] 80 mg PO QHS #30 tablet 01/01/19 Following Prescrptions Were Given to Patient: Clopidogrel Bisulfate [Plavix] 75 mg PO DAILY #30 tablet Furosemide [Lasix] 40 mg PO DAILY #30 tablet Pravastatin [Pravachol] 80 mg PO QHS #30 tablet Primary Care Physician: Nena Calvillo MD [Primary Care Provider] - Please follow up with your Primary Care Physician in: one week Please Follow Up With: Wisam Díaz MD When: one week Please Follow Up With: Leobardo Garnica DO When: 1-2 weeks Patient Instructions: Symptoms of a Heart Attack, Understanding Coronary Artery Disease (CAD), Discharge Instructions for Heart Attack Disposition: Home with Home Health Minutes spent on discharge:: 50 Patient Condition:: Stable Medical Necessity - Tobacco Use Smoking Status: Former smoker Meaningful Use Info Meaningful Use Diagnoses (Choose all that apply): AMI - AMI Aspirin given w/in 24hrs of arrival?: Yes ASA at discharge?: Yes Statins at discharge?: Yes Librado/ARB at discharge?: Yes Beta Shane at discharge?: Yes Done w/ Acute LA measure.: Yes Code Visit Inpatient E&M: 35257 Disch Hosp
--- NOTE | 2019-01-01 16:10 | CM.UR ---
Was contacted d/t patient qualified for home O2. Called patient in her room. States has no preference for DME company for O2. Patient has traditional MCR. Asked if [facility] would be ok and she was agreeable. Contacted [facility] to set up home o2. Gathered all information and completed necessary forms. Sent via the tube to PCU. Spoke with Melba, instructing on where signatures are needed and asked her to fax to the number of on the fax cover included. Explained I already contacted [facility] but the security delivery specialist will be calling them back to discuss time of delivery. She was agreeable and verb understanding. Adair Jane RN, CCM.
[2019-01-01 17:51] LABS: Bedside Glucose 245 mg/dL (70-110)
--- NOTE | 2019-01-01 18:02 | NURSING ---
[employer] rep delivered pt's oxygen.
--- NOTE | 2019-01-04 11:11 | CL.D_ITS ---
Patient Name: ELISABET VAUGHAN Study Date: 12/28/2018 Performing: Wisam Díaz MD Ht: 63 inches 160 cm : 1955 Wt: 249.4 lbs 113 kg Age: 63 Gender: female BSA: 2.12 PROCEDURE(S) PERFORMED [id number]/LV [id number] W OR WO PTCA, SINGLE CORONARY ARTERY CLINICAL PROFILE AND INDICATIONS Indications: Worsening Angina, ACS <= 24 hrs Heart Failure: None Stress/Imaging Stress/Image Study Performed: No Angina Classification Anginal Classification w/in 2 Weeks: CCS IV CAD Presentations: Unstable angina. Non-STEMI. CONCLUSIONS Elevated Left Ventricular End Diastolic Pressure LV ventricular regional wall motion abnormalities with overall preserved LV systolic function LVEF: by LV gram 60 % [place] Multivessel CAD RECOMMENDATIONS Risk factor modification Medical therapy Referred for immediate PCI DESCRIPTION OF PROCEDURE The patient arrived to the procedure lab. The risks and benefits of the procedure as well as a full d escription of our services here and current unavailability of surgical backup were fully explained to the patient and/or their significant other prior to the catheterization. The Timeout was completed, verifying the correct patient and procedure. The patient's procedural site was prepped and draped in the usual fashion. Local anesthetic was given subcutaneously to right radial region with Lidocaine 2% . Using a modified Seldinger technique, arterial access was obtained via the right radial artery, a 6 Fr sheath was inserted. Left Coronary Artery selective angiography was performed in multiple views u sing a 5 Fr. 4.0 [place] catheter. Right Coronary Artery selective angiography was then performed in mu ltiple views using a 5 Fr. 4.0 [place] catheter. Left Ventriculography was performed in MA projection using a 5 Fr. Pigtail catheter. LV to AO pullback pressures were then recorded.The arterial sheath was pulled and a TR Band was applied for hemostasis CORONARY ANGIOGRAPHY DOMINANCE: Right Dominant LEFT HEART ASSESSMENT Left Ventricular Ejection Fraction: by LV Gram 60 % Anterior Hypokinesis Elevated Left Ventricular End Diastolic Pressure LVEDP: 16 mmHg LEFT MAIN: Angiographically normal LEFT ANTERIOR DECENDING ARTERY: PROX LAD: Eccentric: 25 % Stenosis, Eccentric: Irregular: 95 % Stenosis MID LAD: S/P DX: 50-75 % Stenosis, Mild luminal irregularities, Mid to Distal: fills late / faintly f rom antegrade flow and from right to left collateral flow CIRCUMFLEX ARTERY: Mild luminal irregularities OM 1: Proximal - Eccentric: Smooth: 25 % Stenosis, Mid - Eccentric: Smooth: 25 % Stenosis, Distal - E ccentric: Smooth: 25 % Stenosis RIGHT CORONARY ARTERY: Mild luminal irregularities PROX RCA: Eccentric: 25-50 % Stenosis COLLATERAL FLOW: Collateral flow from Right to Left VALVE FINDINGS: Normal Aortic Valve function Normal Mitral Valve function AORTIC ROOT: Angiographically normal COMPLICATIONS No Complications PROCEDURE MEDICATIONS Versed 0.5 mg IV Fentanyl 25 mcg IV Versed 0.5 mg IV Fentanyl 25 mcg IV Oxygen: 2 L/min via nasal cannula Angiomax Bolus 17.3 ml's 12/28/2018 03:00:25 Angiomax 5mg / ml 40.3 ml/hr IV 12/28/2018 03:00:55 Angiomax dc'd ^FreeText^ @ 12/28/2018 03:26:10 Heparin given IA 12/28/2018 02:38:39 Nitro 200 mcg IC 12/28/2018 03:21:35 Nitro drip infused from icu dc'd ^FreeText^ 12/28/2018 03:26:10 Nitro 200 mcg IC 12/28/2018 03:27:48 Nitro 200 mcg IC 12/28/2018 03:44:05 Verapamil 2.5mg, Ntg 100mcgs, 2000 units of Heparin given IA 12/28/2018 02:38:39 IV Bolus: .9 NaCl 250 ml total 12/28/2018 03:24:15 SUMMARY OF HEMODYNAMIC DATA Time AIR REST ECG 02:25:20 AO 129/80 (100) SA 02:40:15 LV 124/4, 9 02:55:49 LV 121/1, 12 02:55:56 LV 131/8, 16 02:57:22 LVp 126/7, 18 02:57:29 AOp 123/77 (98) 02:57:35 Signed By Wisam Díaz MD On 01/04/2019 11:11:10 Wisam Díaz MD
== END 2019-01-01 19:21 | disposition home or self-care (01) | DRG 247 ==
LOC: ED 20:59 → PCU 21:32 → ICU 23:31 → PCU 12-29 15:33
PROVIDERS: Internal Medicine; Internal Medicine Cardiovascular Disease; Internal Medicine Critical Care Medicine; Admitting Provider Hospitalist; Emergency Provider Emergency Medicine; Family Provider Internal Medicine; PCP Internal Medicine; Visit Provider Student in an Organized Health Care Education/Training Program
DX: I21.4 Non-ST elevation (NSTEMI) myocardial infarction (principal); Z68.41 Body mass index [BMI] 40.0-44.9, adult; I25.110 Atherosclerotic heart disease of native coronary artery with unstable angina pectoris; E11.9 Type 2 diabetes mellitus without complications; E78.5 Hyperlipidemia, unspecified; Z79.4 Long term (current) use of insulin; Z87.891 Personal history of nicotine dependence; I10 Essential (primary) hypertension; F32.9 Major depressive disorder, single episode, unspecified; R06.89 Other abnormalities of breathing; R09.02 Hypoxemia; K76.0 Fatty (change of) liver, not elsewhere classified; E66.01 Morbid (severe) obesity due to excess calories; Z90.49 Acquired absence of other specified parts of digestive tract; D50.9 Iron deficiency anemia, unspecified
CPT/HCPCS: 36415; 71045; 76705; 80048; 80053; 80061; 80076; 82607; 82728; 82746; 82962; 83540; 83550; 84443; 84484; 85025; 85347; 85610; 85730; 92928; 93005; 93306; 93308; 93458; 97110; 97162; 97165; 97530; 99152; 99153; 99285; J7030; Q9957; Q9967; A4216; C1725; C1769; C1874; C1887; C1894; C8929; C9600; J0583; J1940; J2405

== ENCOUNTER → 2019-01-20 11:46 | Outpatient (CLI) | payer MEDICARE, SELFPAY ==
[2019-01-19 15:01] VITALS: BMI 43.1
--- NOTE | 2019-01-20 12:26 | PCM.CR.ITP ---
General Information - General Information Admitting Diagnosis: PCI WITH STENT - Education/Goals Barriers to Learning: None Individual Counseling: Initial Assessment: Abnormal Cholesterol Levels, High Blood Pressure, Overweight/Obesity, Diabetes, Metabolic Syndrome (as evidenced by 3 of 5 A-E below), Hypertension, Sedentary Lifestyle, Family History of Heart Disease (under 65 years) Cardiac Rehabilitation Goals: 1. Maintain the individual as the primary focus of care. 2. To improve the patient's quality of life. 3. Identification of cardiac risk factors and provide cardiac risk factor management. 4. Enhance the psychosocial status of the patient. 5. Reconditioning enough to allow the patient to resume customary activities. 6. Control symptoms of cardiac disease Scale for measuring improvement of personal goals: Enter appropriate number in Comments. 2 = Unchanged. 3 = Slightly Better. 4 = Moderate Improvement. 5 = Met my Goal Personal Goals: Initial Assessment: Improve management of stress and emotions, Improve energy level, Get back to work, or to resume activities faster, Improve knowledge of cardiac disease, Improve muscle strength and endurance, Improve diet and eating habits (eat healthier), Control risk factors (learn risk factor modification) Exercise - Initial Assessment - Visit Date of Eval: 01/20/19 - Stages of Change Stages of Change:: Action - Stress Test EKG: SINUS TACHYCARDIA WITH T WAVE INVERSION Blood Pressure: 126/72 - Physician Prescribed Exercise Modalities: Treadmill, Biodyne, Rower, Airdyne, NuStep, SciFit Frequency (days/week): 3x/week for 12 weeks [36 sessions] Intensity: 60-80% age predicted maximum heart rate reserve Target Heart Rate:: 109-117 - Hypertension Do any of the following apply?: Yes Resting Blood Pressure:: 126/72 - Intervention Home Exercise/Activity Goal:: Sitting Time <3 hrs/day - Education Goals:: Warm-up, RPE JOSUÉ Scale, S/S, Safe Exercise, Self-Monitoring - Exercise Program Goals Exercise Program Goals: Aerobic Activity >30 min Nutrition - Initial Assessment - Program Goals Nutrition Program Goals: LDL <70. Total Cholesterol <200. HDL >45. Triglycerides <150. HgbA1C <7%. BMI <25 - Stages of Change Stages of Change:: Action - Lipids Total Cholesterol (mg/dL) Goal = less than 200 mg/dL: 162 HDL Cholesterol (mg/dL) Goal = less than 45 mg/dL: 35 LDL Cholesterol (mg/dL) Goal = less than 70 mg/dL: 91 Triglycerides (mg/dL) Goal = less than 150 mg/dL: 182 Lipid Medication: PRAVACHOL - Diabetes Diabetes:: Yes Hgb A1C: 10 Insulin: Yes Do you monitor your blood sugar at home?: Yes - ENCOURAGED TO BRING MONITOR TO CR - Weight Management Height: 5 ft 2 in Weight:: 236 lb - Intervention Referral to dietitian:: No Referral to Diabetic Clinic:: No Will attend diet classes:: Yes - Education Gave educational materials for:: Signs & symptoms of hypoglycemia, Signs & symptoms of hyperglycemia, Relate diabetes to coronary artery disease, Healthy eating Tobacco - Initial Assessment - Program Goals Tobacco Program Goals: Complete smoking cessation. Attend education classes. Improve Knowledge Test score - Stage of Change Stages of Change:: Action - Learning Barriers Learning Barriers: Ready to Learn - Family Support Do you have family support?: Yes - Tobacco Use Tobacco Use: Non-smoker How long ago did you quit using tobacco products?: Greater than or equal to 6 months ago Years Smokin - Intervention Smoking Cessation Referral:: No Individual Education/Counseling:: No Education Schedule Given:: No - Education Gave educational material for:: Tobacco triggers, Coronary artery disease, Risk factors, Sexuality, Medical compliance, Cardiac A&P, Angina signs & symptoms Psychosocial - Initial Assess - Target Goals Target Goals: Assess presence or absence of depression. Using a valid screening tool, maximizes coping skills. Positive support system - Stages of Change Stages of Change:: Action - Psychosocial Test Tool Used:: HANDS Depression Questionnaire - Intervention PS - Interventions: Yes Attend Stress Management Classes, Yes Uses Stress Management Skills, No Referral to Mental Health, No Referral to [facility] Case Management, No Referral to Physician - Education Gave educational materials for:: Coping techniques, Signs & symptoms of depression, Stress management, Relaxation techniques - Patient/Program Goal Preventative Medication(s):: Aspirin, VICTOR MANUEL inhibitor, Clopidogrel, Beta miles, Statin/lipid - Assistive Devices Assistive Devices:: None Fall Risk Assessed:: No Patient Health Questionnaire Initial Assessment 1. Little interest or pleasure in doing things: Not at all 2. Feeling down, depressed, or hopeless: Not at all 3. Trouble falling or staying asleep, or sleeping too much: Not at all 4. Feeling tired or having little energy: Several days 5. Poor appetite or overeating: Not at all 6. Feeling bad about yourself -- or that you are a failure or have let yourself or your family down: Not at all 7. Trouble concentrating on things, such as reading the newspaper or watching television: Not at all 8. Moving or speaking so slowly that other people could have noticed. Or the opposite - being so fidgety or restless that you have been moving around a lot more than usual: Not at all 9. Thoughts that you would be better off , or of hurting yourself in some way: Not at all How difficult have these problems made it for you to do your work, take care of things at home, or get along with other people?: Not difficult at all Total Score: 1 YOVANA-Q SV Test - Statements CAD is a disease of the arteries in the heart: False Examples of risk factors for heart disease: True Angina is chest pain or discomfort: True The benefits of resistance training include: True Eating more meat and dairy products: False Anti-platelet medications such as aspirin are important: True The only effective way to manage stress: False An exercise warm-up slowly increases heart rate: True Prepared, processed foods usually have high sodium: True Depression is common after a heart attack: True The statin medications lower cholesterol: True To control blood pressure, lower the amount of sodium: True If someone gets chest discomfort during walking: False Transfats are partially hydrogenated vegetable oils: I Don't Know Sleep apnea that is not treated increases the risk: False To control cholesterol, one should become a vegetarian: False Someone knows if he/she is exercising at the right level: I Don't Know Diabetes cannot be prevented with exercise & health eating: False Stress is a large risk for heart attack: True A diet that can help lower blood pressure is rich in: True - Total Score Total Correct Responses: 18 Self-Efficacy Initial Assessment We would like to know how confident you are in doing certain activities. Please select your confidence level for:: Select your confidence level for the following using the scale 1-10 where 1 is not at all confident and 10 is totally confident. Your score is the average of all 6 responses. Fatigue: How confident are you that you can keep the fatigue caused by your disease from interfering with the things you want to do? Select Number: 8 Physical Discomfort or Pain: How confident are you that you can keep the physical discomfort or pain of your disease from interfering with the things you want to do? Select Number: 10 Emotional Distress: How confident are you that you can keep the emotional distress caused by your disease from interfering with the things you want to do? Select Number: 10 Other Symptoms or Health Problems: How confident are you that you can keep other symptoms or health problems from interfering with the things you want to do? Select Number: 10 Different Tasks and Activities: How confident are you that you can do the different tasks and activities needed to manage your health condition so as to reduce your need to see a doctor? Select Number: 10 Medication: How confident are you that you can do things other than just taking medication to reduce how much your illness affects your everyday life? Select Number: 10 Total Score:: 9 Nutrition Survey - Nutrition Survey Instructions Scoring Instructions: Scoring is as follows: Yes = 1 points. No = 0 point. Patient score that is >/=12 is considered to be at potential nutritional risk and could benefit from a referral to a registered dietitian. - Nutrition Survey Initial Have you lost >10 lbs over the past 2 months without trying?: No Are you following a special diet at home for diabetes, low fat, or low salt?: Yes Are you interested in meeting with a dietitian for help understanding your diet?: No Do you eat less than 3 meals a day?: No Do you eat fatty meats (su, sausage, ribs, etc), fried foods, desserts, large amounts of salad dressings, margarine, butter, or cheese most days?: No Do you have food allergies? [Enter types in comment field]: No Do you eat in restaurants more than 3 times a week?: No Do you season food with salt, seasoning salt, or garlic salt?: Yes Do you used canned, boxed, frozen meals, or soups, seasoning packets?: No Total Score:: 2
--- NOTE | 2019-01-20 12:34 | CR.HP_ITS ---
CR - History & Physical - General Arrival date:: 01/20/19 Arrival time:: 11:45 Date of Referral:: 12/28/18 Date of CR Evaluation:: 01/20/19 Referring Physician: DR OBRIEN Primary Diagnosis: PCI WITH STENT - History of Present Cardiac Event Onset Date: Enter Onset Date of cardiac illnesses in Comment field below Current stable Angina Pectoris:: No Acute Myocardial Infarction within 12 months:: Yes Coronary Artery Bypass Graft:: No Heart valve replacement or repair:: No PTCA or coronary stenting:: Yes Heart or Heart-Lung Transplant:: No Heart Failure EF <35%:: No Type of Symptoms:: SOB,PALPITATIONS,TIGHTNESS IN CHEST,DIAPHORESIS, CHEST PRESSURE - Medications Home Medications: Ambulatory Orders Medication Instructions Recorded Aspirin [Aspir 81] 81 mg PO DAILY 12/27/18 Atenolol 50 mg PO DAILY 12/27/18 Fluoxetine HCl 40 mg PO DAILY 12/27/18 Glimepiride [Amaryl] 2 mg PO BID 12/27/18 Insulin Glargine,Hum.rec.anlog 18 - 23 unit SUBCUT QHS 12/27/18 [Lantus] Lisinopril 5 mg PO DAILY 12/27/18 Metformin HCl 500 mg PO TID 12/27/18 Clopidogrel Bisulfate [Plavix] 75 mg PO DAILY #30 tab 01/01/19 Furosemide [Lasix] 40 mg PO DAILY #30 tab 01/01/19 Pravastatin [Pravachol] 80 mg PO QHS #30 tab 01/01/19 - Allergies Allergies/Adverse Reactions: Allergies Sulfa (Sulfonamide Antibiotics) Allergy (Verified 01/19/19 15:02) Hives - Sleep Disorder Evaluation Hx of Sleep Apnea: No Do you snore loudly (louder than talking or can be heard through closed doors)?: No Do you often feel tired/ fatigued/ sleepy during daytime?: No Has anyone observed you stop breathing during sleep?: No History of Hypertension (for STOP score): Yes STOP Results: Negative Advanced Directives - Advanced Directives Power of Staff Veterinarian: Yes Living Will: Yes Advance Directives on File: No - ENCOURAGED TO BRING COPY TO [facility] MED RECORDS DNR Order?:: No Past Medical History - Past Medical Illness Medical History: Past Medical History (Last Updated 01/19/19 @ 15:06 by Kaitlin Pendleton) S/P coronary artery stent placement (Chronic) Onset Date: ~12/28/18 Z95.5 PTCA/ALEAH to prox and mid LAD Essential hypertension (Chronic) I10 Atherosclerotic heart disease of [place] coronary artery without angina pectoris (Chronic) I25.10 NSTEMI (non-ST elevated myocardial infarction) (Acute) I21.4 Unstable angina (Acute) I20.0 Tachycardia (Chronic) R00.0 Depression (Chronic) F32.9 Hyperlipidemia (Chronic) E78.5 Type 2 diabetes mellitus (Chronic) E11.9 Chest pain (Acute) R07.9 - Past Surgical History Surgical History: Past Surgical History (Last Reviewed 01/19/19 @ 15:05 by Kaitlin Pendleton) Presence of coronary angioplasty implant and graft Onset Date: ~12/28/18 Z95.5 PTCA/ALEAH to prox and mid LAD History of cholecystectomy Z90.49 Surgical History: cholecystectomy Social History - Smoking History Smoking Status: Former smoker Years Smokin Packs Smoked per Day: 0 Hx Smoking Cessation Date: 2008 Hx Tobacco Use: Yes Hx Smoking Exposure: No - Alcohol Use Alcohol Usage: No - Substance Abuse Hx Substance Use: No - Occupation Occupation (List type of work in comments):: Retired - Hobbies, Recreation, Social Activities Hobbies: Reading, Other - VERY ACTIVE WITH MY GRANDKIDS Recreational Activities: I am able to engage in all my recreational activities Social Environment - Status Marital Status: - Current Living Arrangements Living Environment:: Family - LIVES WITH DAUGHTER AND THREE GRANDCHILDREN - Children How many children do you have?: 2 Do any of your children live nearby?: Yes - Safety Do you feel safe in your surroundings?: Yes - Assistance Do you need any assistance at home?: NONE Review of Systems - Review of Systems Hints: Right click = Denies (Slash). Left click = Reports ([place]) Review of Present Symptoms: Reports: Fatigue, Appetite - Normal, Appetite - Special Diet, Sleep - Normal. Denies: Shortness of Breath at Rest, Shortness of Breath with Exertion, PVD, Operative Discomfort, Angina, Wound Healing, Dizziness/Lightheadedness, Heart Arrhythmia/Irregularities - Pain Is Patient Pain Free?: Yes Risk Factor Assessment - Chief Complaint Chief Complaint: CURRENT PCI PT WHO PRESENTS TODAY FOR CR INITIAL EVALUATION - Vital Signs Temperature: 98.6 F Respiratory Rate: 16 Pulse Ox: 96 Blood Pressure: 126/72 Nailbeds:: PINK - Hypertension How long have you been treated?: APPROX 10 YEARS On medication(s)?: YES,ATENOLOL,LISINOPRIL Blood Pressure Sitting - Left Arm: 126/72 - Stress Stress: Home/Family - DAUGHTER GETTING DIVORCE BUT DENIES A REAL STRESS - Blood Cholesterol/Lipids Total Cholesterol (mg/dL) Goal = less than 200 mg/dL: 162 HDL Cholesterol (mg/dL) Goal = less than 40 mg/dL: 35 LDL Cholesterol (mg/dL) Goal = less than 70 mg/dL: 91 Triglycerides (mg/dL) Goal = less than 150 mg/dL: 782 - Diabetes Diabetic History: Type II Nutrition Referral for Diabetes: No - Obesity Height: 5 ft 2 in Weight:: 236 lb Weight in Pounds: 236.0 lbs Weight Source: Estimated by Patient Body Mass Index (BMI): 43.1 Nutritional Referral for Obesity: No - Physical Inactivity Physical Inactivity: Recreational activity - Risk Stratification Risk Guidelines: Lowest Risk: Risk Factor for Smoking, Moderate Risk: Risk Factor for Obesity, Risk Factor for Hypertension, Risk Factor for Sedentary Lifestyle, Risk Factor for Depression, Highest Risk: Risk Factor for Dyslipidemia, Risk Factor for Diabetes - For Smoking Smoking Risk Guidelines: Smoking Low Risk: None or quit greater than 6 months ago. Smoking Moderate Risk: Smoker or quit 6 months or less ago. Smoking High Risk: Smoker - For Dyslipidemia Dyslipidemia Risk Guidelines: Low Risk: Moderate Risk: High Risk: 15-25% fat 25.1-29% fat >/= 30% fat. <7% sat fat 7-9% sat fat >9% sat fat. <150 mg chol 150-299 mg chol >/= 300 mg chol. LDL <100 LDL 100-129 LDL >/= 130. Chol/HDL ratio <5.0 Chol/HDL ratio 5.0-6.0 Chol/HDL ratio >6.0. Triglycerides <100 Triglycerides 100- 149 Triglycerides >/= 150 - For Diabetes Mellitus Diabetes Risk Guidelines: Diabetes Low Risk: HgA1c <6.5% and/or FBG <120. Diabetes Moderate Risk: HgA1c 6.6-7.9% and/or FBG 120-180. Diabetes High Risk: HgA1c >/= 8% and/or FBG >180 - For Obesity/Overweight Obesity/Overweight Risk Guidelines: Obesity Low Risk: BMI <25.0. Obesity Moderate Risk: BMI 25-29.9. Obesity High Risk: BMI >/= 30.0 - For Hypertension Hypertension Risk Guidelines: Hypertension Low Risk: Systolic <120 and Diastolic <80. Hypertension Moderate Risk: Systolic 120-139 and Diastolic 80-89. Hypertension High Risk: Systolic >/= 140 and Diastolic >/= 90 - For Sedentary Lifestyle Sedentary Lifestyle Risk Guidelines: Sedentary Lifestyle Low Risk: >/= 1,500 kcal/week. Sedentary Lifestyle Moderate Risk: 700-1,499 kcal/week. Sedentary Lifestyle High Risk: < 700 kcal/week - For Depression Depression Risk Guidelines: Depression Low Risk: Not clinically depressed. Depression Moderate Risk: Mildly depressed. Depression High Risk: Clinically depressed Motivation - Motivation to Participate On a scale of 1 to 10, how prepared are you to commit to attending program?: 10 What do you see as barriers to successfully being able to complete the program?: NONE What do you see as the benefits of succesfully completing the program? In other words, what do you hope to get out of participating in the program?: IMPROVED BREATHING, LESS FATIGUE Are there issues you are dealing with that will interfere with completing the program?: NONE Do you have a spouse or signficant other, family or friends who will help support you to complete the program?: TWO ADULT CHILDREN
[2019-01-20 13:03] VITALS: BP 126/72; RESP 16; TEMP 37; O2SAT 96; BMI 43.1
[2019-01-20 13:14] VITALS: BP 126/72
== END ==
PROVIDERS: Family Provider Internal Medicine; PCP Internal Medicine; Referring Provider Internal Medicine Cardiovascular Disease; Visit Provider Internal Medicine Cardiovascular Disease
DX: Z95.5 Presence of coronary angioplasty implant and graft (principal)

== ENCOUNTER 2019-02-04 11:30 | Outpatient (RCR) | payer MEDICARE, SELFPAY ==
[2019-01-20 13:03] VITALS: BMI 43.1
== END 2019-02-04 23:59 ==
LOC: CR 11:30
PROVIDERS: Family Provider Internal Medicine; PCP Internal Medicine; Referring Provider Internal Medicine Cardiovascular Disease; Visit Provider Internal Medicine Cardiovascular Disease
DX: I25.10 Atherosclerotic heart disease of native coronary artery without angina pectoris (principal); I25.2 Old myocardial infarction; E78.5 Hyperlipidemia, unspecified; I10 Essential (primary) hypertension; Z95.5 Presence of coronary angioplasty implant and graft
CPT/HCPCS: 93798

== ENCOUNTER 2019-03-04 11:30 | Outpatient (RCR) | payer MEDICARE, SELFPAY ==
[2018-12-28 09:39] VITALS: BMI 44.2
[2019-01-26 12:58] VITALS: BMI 43.1
[2019-02-21 09:20] VITALS: BP 102/62; BP 120/60
--- NOTE | 2019-02-21 09:20 | CR.ITP_ITS ---
Exercise - 30-day Assessment - Visit Date of Eval: 02/21/19 Session #:: 10 - has missed 4 sessions. - Stages of Change Stages of Change:: Action - Physician Prescribed Exercise Modalities: Treadmill, Airdyne, NuStep, SciFit Frequency (days/week): 3 Duration (Minutes):: 30-45 min Intensity: 60-80% age predicted maximum heart rate reserve METs - Progression: 0.5-1.0 MET, RPE 11-14 WEEK: 2.5 Target Heart Rate:: 102-133 w/max HR 94 - Hypertension Resting Blood Pressure:: 102/62 Peak Exercise Blood Pressure:: 120/60 Medication Changes:: No - Intervention Home Exercise/Activity Goal:: Sitting Time <3 hrs/day - Education Goals:: Warm-up, RPE JOSUÉ Scale, S/S, Safe Exercise, Self-Monitoring - Exercise Program Goals Exercise Program Goals: Aerobic Activity >30 min Nutrition - Initial Assessment - Program Goals Nutrition Program Goals: LDL <70. Total Cholesterol <200. HDL >45. Triglycerides <150. HgbA1C <7%. BMI <25 - Diabetes Do you monitor your blood sugar at home?: Yes - ENCOURAGED TO BRING MONITOR TO CR Nutrition - 30-Day Assessment - Program Goals Nutrition Program Goals: LDL <70. Total Cholesterol <200. HDL >45. Triglycerides <150. HgbA1C <7%. BMI <25 - Visit Date of Eval: 02/21/19 - Stages of Change Stages of Change:: Action - Lipids Has the patient seen the dietitian?: No - Diabetes Diabetes:: Yes Insulin: Yes Non-Insulin Dependent?: Yes - Weight Management Weight:: 237 lb - Intervention Referral to dietitian:: Yes Referral to Diabetic Clinic:: Yes Will attend diet classes:: Yes - Education Attended class for:: Signs & symptoms of hypoglycemia, Signs & symptoms of hyperglycemia, Relate diabetes to coronary artery disease, Healthy eating Tobacco - Initial Assessment - Program Goals Tobacco Program Goals: Complete smoking cessation. Attend education classes. Improve Knowledge Test score - Learning Barriers Learning Barriers: Ready to Learn Tobacco - 30-Day Assessment - Program Goals Tobacco Program Goals: Complete smoking cessation. Attend education classes. Improve Knowledge Test score - Stage of Change Stages of Change:: Action - Learning Barriers Learning Barriers: Participates in education - Family Support Do you have family support?: Yes - Tobacco Use Tobacco Use: Non-smoker Do you use smokeless tobacco?: No - Intervention Smoking Cessation Referral:: No Individual Education/Counseling:: No Education Schedule Given:: Yes - Education Attended class for:: Coronary artery disease, Risk factors, Sexuality, Medical compliance, Cardiac A&P, Angina signs & symptoms Psychosocial - Initial Assess - Target Goals Target Goals: Assess presence or absence of depression. Using a valid screening tool, maximizes coping skills. Positive support system - Psychosocial Test Tool Used:: HANDS Depression Questionnaire - Assistive Devices Fall Risk Assessed:: No Psychosocial - 30-Day Assess - Target Goals Target Goals: Assess presence or absence of depression. Using a valid screening tool, maximizes coping skills. Positive support system - Stages of Change Stages of Change:: Action - Psychosocial Test Tool Used:: HANDS Depression Questionnaire - Intervention PS - Interventions: Yes Attend Stress Management Classes, No Referral to Mental Health, No Referral to [facility] Case Management, No Referral to Physician, No Uses Stress Management Skills - Education Attended classes for:: Coping techniques, Signs & symptoms of depression, Stress management, Relaxation techniques - Patient/Program Goal Preventative Medication(s):: Aspirin, Clopidogrel, Beta miles, Statin/lipid - Assistive Devices Assistive Devices:: Cane, Walker Patient Health Questionnaire 30-Day Re-eval Assessment 1. Little interest or pleasure in doing things: Not at all 2. Feeling down, depressed, or hopeless: Not at all 3. Trouble falling or staying asleep, or sleeping too much: Not at all 4. Feeling tired or having little energy: Several days 5. Poor appetite or overeating: Not at all 6. Feeling bad about yourself -- or that you are a failure or have let yourself or your family down: Not at all 7. Trouble concentrating on things, such as reading the newspaper or watching television: Not at all 8. Moving or speaking so slowly that other people could have noticed. Or the opposite - being so fidgety or restless that you have been moving around a lot more than usual: Not at all 9. Thoughts that you would be better off , or of hurting yourself in some way: Not at all Total Score: 1 Self-Efficacy 30-Day Re-eval Assessment We would like to know how confident you are in doing certain activities. Please select your confidence level for:: Select your confidence level for the following using the scale 1-10 where 1 is not at all confident and 10 is totally confident. Your score is the average of all 6 responses. Fatigue: How confident are you that you can keep the fatigue caused by your disease from interfering with the things you want to do? Select Number: 9 Physical Discomfort or Pain: How confident are you that you can keep the physical discomfort or pain of your disease from interfering with the things you want to do? Select Number: 10 Emotional Distress: How confident are you that you can keep the emotional d istress caused by your disease from interfering with the things you want to do? Select Number: 10 Other Symptoms or Health Problems: How confident are you that you can keep other symptoms or health problems from interfering with the things you want to do? Select Number: 10 Different Tasks and Activities: How confident are you that you can do the different tasks and activities needed to manage your health condition so as to reduce your need to see a doctor? Select Number: 10 Medication: How confident are you that you can do things other than just taking medication to reduce how much your illness affects your everyday life? Select Number: 10 Total Score:: 9
== END 2019-03-06 23:59 ==
LOC: CR 11:30
PROVIDERS: Family Provider Internal Medicine; PCP Internal Medicine; Referring Provider Internal Medicine Cardiovascular Disease; Visit Provider Internal Medicine Cardiovascular Disease
DX: I25.10 Atherosclerotic heart disease of native coronary artery without angina pectoris (principal); I21.4 Non-ST elevation (NSTEMI) myocardial infarction; E78.5 Hyperlipidemia, unspecified; I10 Essential (primary) hypertension; Z95.5 Presence of coronary angioplasty implant and graft
CPT/HCPCS: 93798

== ENCOUNTER 2019-04-06 11:30 | Outpatient (RCR) | payer MEDICARE, SELFPAY ==
[2018-12-28 09:39] VITALS: BMI 44.2
[2019-01-26 12:58] VITALS: BMI 43.1
[2019-03-07 00:56] VITALS: BP 102/62; BP 120/60
--- NOTE | 2019-03-23 09:42 | PCM.CR.ITP ---
General Information - General Information Admitting Diagnosis: PTCA, PCI W/CORONARY STENTING - Education/Goals Barriers to Learning: None Individual Counseling: Initial Assessment: Abnormal Cholesterol Levels - H/O Hyperlipidemia, High Blood Pressure - H/O Hypertension, Overweight/Obesity, Diabetes, Metabolic Syndrome (as evidenced by 3 of 5 A-E below), Hypertension, Sedentary Lifestyle, Family History of Heart Disease (under 65 years) Cardiac Rehabilitation Goals: 1. Maintain the individual as the primary focus of care. 2. To improve the patient's quality of life. 3. Identification of cardiac risk factors and provide cardiac risk factor management. 4. Enhance the psychosocial status of the patient. 5. Reconditioning enough to allow the patient to resume customary activities. 6. Control symptoms of cardiac disease Scale for measuring improvement of personal goals: Enter appropriate number in Comments. 2 = Unchanged. 3 = Slightly Better. 4 = Moderate Improvement. 5 = Met my Goal Personal Goals: Initial Assessment: Improve management of stress and emotions - Implementing relaxation techniques., Improve energy level, Get back to work, or to resume activities faster - increaseed recreational activities and ADLs, Improve knowledge of cardiac disease, Improve muscle strength and endurance - increased endurance/ambulation, Improve diet and eating habits (eat healthier), Control risk factors (learn risk factor modification), 30-day Re-assessment: Improve management of stress and emotions, Improve energy level, Get back to work, or to resume activities faster, Improve knowledge of cardiac disease, Improve muscle strength and endurance, Improve diet and eating habits (eat healthier), Control risk factors (learn risk factor modification), 60-day Re-assessment: Improve management of stress and emotions, Improve energy level, Get back to work, or to resume activities faster, Improve knowledge of cardiac disease, Improve muscle strength and endurance, Improve diet and eating habits (eat healthier), Control risk factors (learn risk factor modification) Exercise - Initial Assessment - Visit Date of Eval: 01/20/19 - Stages of Change Stages of Change:: Action - Physician Prescribed Exercise Modalities: Treadmill, Biodyne, Rower, Airdyne, NuStep, SciFit Frequency (days/week): 3x/week for 12 weeks [36 sessions] Duration (Minutes):: 30-45 minutes Intensity: 60-80% age predicted maximum heart rate reserve METs - Progression: 0.5-1.0 MET, RPE 11-14 WEEK: 2.0 Target Heart Rate:: 102-133 - Hypertension Do any of the following apply?: Yes, Medication Resting Blood Pressure:: 126/72 - Intervention Home Exercise/Activity Goal:: Sitting Time <3 hrs/day - Education Goals:: Warm-up, RPE JOSUÉ Scale, S/S, Safe Exercise, Self-Monitoring - Exercise Program Goals Exercise Program Goals: Aerobic Activity >30 min Exercise - 30-day Assessment - Visit Date of Eval: 02/16/19 Session #:: 10 - Patient has missed 4 sessions for personal reasons. - Stages of Change Stages of Change:: Action - Physician Prescribed Exercise Modalities: Treadmill, NuStep, SciFit Frequency (days/week): 3 Duration (Minutes):: 30-45 Intensity: 60-80% age predicted maximum heart rate reserve METs - Progression: 0.5-1.0 MET, RPE 11-14 WEEK: 2.5 Target Heart Rate:: 102-133 w max HR 94 - Hypertension Resting Blood Pressure:: 102/62 Peak Exercise Blood Pressure:: 120/60 - good blood pressure control Medication Changes:: No - Intervention Home Exercise/Activity Goal:: Sitting Time <3 hrs/day - increasing recreational activity and participating in ADLs. - Education Goals:: Warm-up, RPE JOSUÉ Scale, S/S, Safe Exercise, Self-Monitoring - Exercise Program Goals Exercise Program Goals: Aerobic Activity >30 min Exercise - 60-Day Assessment - Visit Date of Eval: 03/23/19 Session #:: 21 - Patient has missed session due to other medical issues/illness - Stages of Change Stages of Change:: Action - Physician Prescribed Exercise Modalities: Treadmill, NuStep, SciFit Frequency (days/week): 3 Duration (Minutes):: 30-45 Intensity: 60-80% age predicted maximum heart rate reserve METs - Progression: 0.5-1.0 MET, RPE 11-14 WEEK: 3.0 Target Heart Rate:: 102-133 with max HR 100 - Hypertension Resting Blood Pressure:: 122/70 Peak Exercise Blood Pressure:: 142/72 Medication Changes:: No - Intervention Home Exercise/Activity Goal:: Moderate Exercise 30 min/day x 5 days/wk - encouraged patient is doing more activity at home! Nutrition - Initial Assessment - Program Goals Nutrition Program Goals: LDL <70. Total Cholesterol <200. HDL >45. Triglycerides <150. HgbA1C <7%. BMI <25 - Visit Date of Assessment:: 01/20/19 - Stages of Change Stages of Change:: Action - Lipids Total Cholesterol (mg/dL) Goal = less than 200 mg/dL: 162 HDL Cholesterol (mg/dL) Goal = less than 45 mg/dL: 35 LDL Cholesterol (mg/dL) Goal = less than 70 mg/dL: 91 Triglycerides (mg/dL) Goal = less than 150 mg/dL: 182 Lipid Medication: Pravachol - Diabetes Diabetes:: Yes Fasting blood glucose:: 183 Hgb A1C: 10 Insulin: Yes Do you monitor your blood sugar at home?: Yes - ENCOURAGED TO BRING MONITOR TO CR - Weight Management Height: 5 ft 2 in Weight:: 236 lb Body Fat %:: 43.1 - Intervention Referral to dietitian:: Yes - Refer to structured weight loss program. Referral to Diabetic Clinic:: Yes - Refer to Diabetic education/training program. Will attend diet classes:: Yes - Education Gave educational materials for:: Signs & symptoms of hypoglycemia, Signs & symptoms of hyperglycemia, Relate diabetes to coronary artery disease, Healthy eating Nutrition - 30-Day Assessment - Program Goals Nutrition Program Goals: LDL <70. Total Cholesterol <200. HDL >45. Triglycerides <150. HgbA1C <7%. BMI <25 - Visit Date of Eval: 02/16/19 - Stages of Change Stages of Change:: Action - Lipids Has the patient seen the dietitian?: No - Diabetes Diabetes:: Yes Insulin: Yes Random Blood Glucose:: 120 - FSBS 120-192 prior to exercise - Weight Management Weight:: 237 lb - gained 1 pound. Discussed wiht patient importance of proper diet and portional control. - Intervention Referral to dietitian:: Yes - Structured weight loss program. Referral to Diabetic Clinic:: Yes Will attend diet classes:: Yes - Education Attended class for:: Signs & symptoms of hypoglycemia, Signs & symptoms of hyperglycemia, Relate diabetes to coronary artery disease, Healthy eating Nutrition - 60-Day Assessment - Program Goals Nutrition Program Goals: LDL <70. Total Cholesterol <200. HDL >45. Triglycerides <150. HgbA1C <7%. BMI <25 - Visit Date of Eval: 03/23/19 - Stages of Change Stages of Change:: Action - Lipids Has the patient seen the dietitian?: No - not to date; contacted [facility] about referral. - Diabetes Diabetes:: Yes Insulin: Yes Random Blood Glucose:: 120 - Weight Management Weight:: 237 lb - weight stable; reinforced diet with patient. She is attemtping to monitor her eating habits eating healthier. - Intervention Referral to dietitian:: Yes Referral to Diabetic Clinic:: Yes Will attend diet classes:: Yes - Education Attended class for:: Signs & symptoms of hypoglycemia, Signs & symptoms of hyperglycemia, Relate diabetes to coronary artery disease, Healthy eating Tobacco - Initial Assessment - Program Goals Tobacco Program Goals: Complete smoking cessation. Attend education classes. Improve Knowledge Test score - Stage of Change Stages of Change:: Action - Learning Barriers Learning Barriers: Ready to Learn - Family Support Do you have family support?: Yes - Tobacco Use Tobacco Use: Non-smoker Years Smokin Do you use smokeless tobacco?: Yes - Intervention Smoking Cessation Referral:: No Individual Education/Counseling:: No Education Schedule Given:: Yes - Education Attended class for:: Treating Heart Disease, How The Heart Works, What it means to have Heart Disease, How Coronary Artery Disease is Diagnosed, Heart Procedures, What Heart Medications Do, Risk Factors & Modifications, Living an Active Life, Nutrition, Emotions & Heart Disease, Stress Management & Relaxation, Sleep Disorders & Heart Disease Tobacco - 30-Day Assessment - Program Goals Tobacco Program Goals: Complete smoking cessation. Attend education classes. Improve Knowledge Test score - Stage of Change Stages of Change:: Action - Learning Barriers Learning Barriers: Participates in education - Family Support Do you have family support?: Yes - Tobacco Use Tobacco Use: Non-smoker Do you use smokeless tobacco?: No - Intervention Smoking Cessation Referral:: No Individual Education/Counseling:: No Education Schedule Given:: Yes - Education Attended class for:: Treating Heart Disease, How The Heart Works, What it means to have Heart Disease, How Coronary Artery Disease is Diagnosed, Heart Procedures, What Heart Medications Do, Risk Factors & Modifications, Living an Active Life, Nutrition, Emotions & Heart Disease, Stress Management & Relaxation, Sleep Disorders & Heart Disease Tobacco - 60-Day Assessment - Program Goals Tobacco Program Goals: Complete smoking cessation. Attend education classes. Improve Knowledge Test score - Stage of Change Stages of Change:: Action - Learning Barriers Learning Barriers: Participates in education - Family Support Do you have family support?: Yes - Tobacco Use Tobacco Use: Non-smoker Do you use smokeless tobacco?: No - Intervention Smoking Cessation Referral:: No Individual Education/Counseling:: No Education Schedule Given:: Yes - Education Attended class for:: Treating Heart Disease, How The Heart Works, What it means to have Heart Disease, How Coronary Artery Disease is Diagnosed, Heart Procedures, What Heart Medications Do, Risk Factors & Modifications, Living an Active Life, Nutrition, Emotions & Heart Disease, Stress Management & Relaxation, Sleep Disorders & Heart Disease Psychosocial - Initial Assess - Target Goals Target Goals: Assess presence or absence of depression. Using a valid screening tool, maximizes coping skills. Positive support system - Stages of Change Stages of Change:: Action - Psychosocial Test Tool Used:: HANDS Depression Questionnaire - Intervention PS - Interventions: Yes Attend Stress Management Classes - Learn stress management techniques, No Referral to Mental Health, No Referral to [facility] Case Management, No Referral to Physician, No Uses Stress Management Skills - not at present, let's stress control. - Education Gave educational materials for:: Coping techniques, Signs & symptoms of depression, Stress management, Relaxation techniques - Patient/Program Goal Preventative Medication(s):: Aspirin, VICTOR MANUEL inhibitor, Clopidogrel, Beta miles, Statin/lipid - Assistive Devices Assistive Devices:: Cane, Walker Fall Risk Assessed:: Yes Psychosocial - 30-Day Assess - Target Goals Target Goals: Assess presence or absence of depression. Using a valid screening tool, maximizes coping skills. Positive support system - Stages of Change Stages of Change:: Action - Psychosocial Test Tool Used:: HANDS Depression Questionnaire - Intervention PS - Interventions: Yes Attend Stress Management Classes, Yes Uses Stress Management Skills - using stress relaxation techniques, No Referral to Mental Health, No Referral to [facility] Case Management, No Referral to Physician - Education Attended classes for:: Coping techniques, Signs & symptoms of depression, Stress management, Relaxation techniques - Patient/Program Goal Preventative Medication(s):: Aspirin, VICTOR MANUEL inhibitor, Clopidogrel, Beta miles, Statin/lipid - Assistive Devices Assistive Devices:: Cane, Walker Fall Risk Assessed:: Yes Psychosocial - 60-Day Assess - Target Goals Target Goals: Assess presence or absence of depression. Using a valid screening tool, maximizes coping skills. Positive support system - Stages of Change Stages of Change:: Action - Psychosocial Test Tool Used:: HANDS Depression Questionnaire - Intervention PS - Interventions: Yes Attend Stress Management Classes, Yes Uses Stress Management Skills - Patient stated she is taking more time for herself, relaxing., No Referral to Mental Health, No Referral to [facility] Case Management, No Referral to Physician - Education Attended classes for:: Coping techniques, Signs & symptoms of depression, Stress management, Relaxation techniques - Patient/Program Goal Preventative Medication(s):: Aspirin, VICTOR MANUEL inhibitor, Clopidogrel, Beta miles, Statin/lipid - Assistive Devices Assistive Devices:: Cane, Walker Fall Risk Assessed:: Yes Patient Health Questionnaire Initial Assessment 1. Little interest or pleasure in doing things: Not at all 2. Feeling down, depressed, or hopeless: Not at all 3. Trouble falling or staying asleep, or sleeping too much: Not at all 4. Feeling tired or having little energy: Several days 5. Poor appetite or overeating: Not at all 6. Feeling bad about yourself -- or that you are a failure or have let yourself or your family down: Not at all 7. Trouble concentrating on things, such as reading the newspaper or watching television: Not at all 8. Moving or speaking so slowly that other people could have noticed. Or the opposite - being so fidgety or restless that you have been moving around a lot more than usual: Not at all 9. Thoughts that you would be better off , or of hurting yourself in some way: Not at all How difficult have these problems made it for you to do your work, take care of things at home, or get along with other people?: Not difficult at all Total Score: 1 30-Day Re-eval Assessment 1. Little interest or pleasure in doing things: Not at all 2. Feeling down, depressed, or hopeless: Not at all 3. Trouble falling or staying asleep, or sleeping too much: Not at all 4. Feeling tired or having little energy: Several days 5. Poor appetite or overeating: Not at all 6. Feeling bad about yourself -- or that you are a failure or have let yourself or your family down: Not at all 7. Trouble concentrating on things, such as reading the newspaper or watching television: Not at all 8. Moving or speaking so slowly that other people could have noticed. Or the opposite - being so fidgety or restless that you have been moving around a lot more than usual: Not at all 9. Thoughts that you would be better off , or of hurting yourself in some way: Not at all How difficult have these problems made it for you to do your work, take care of things at home, or get along with other people?: Not difficult at all Total Score: 1 60-Day Re-eval Assessment 1. Little interest or pleasure in doing things: Not at all 2. Feeling down, depressed, or hopeless: Not at all 3. Trouble falling or staying asleep, or sleeping too much: Not at all 4. Feeling tired or having little energy: Not at all 5. Poor appetite or overeating: Not at all 6. Feeling bad about yourself -- or that you are a failure or have let yourself or your family down: Not at all 7. Trouble concentrating on things, such as reading the newspaper or watching television: Not at all 8. Moving or speaking so slowly that other people could have noticed. Or the opposite - being so fidgety or restless that you have been moving around a lot more than usual: Not at all 9. Thoughts that you would be better off , or of hurting yourself in some way: Not at all How difficult have these problems made it for you to do your work, take care of things at home, or get along with other people?: Not difficult at all Total Score: 0 YOVANA-Q SV Test - Statements CAD is a disease of the arteries in the heart: False Examples of risk factors for heart disease: True Angina is chest pain or discomfort: True The benefits of resistance training include: True Eating more meat and dairy products: False Anti-platelet medications such as aspirin are important: True The only effective way to manage stress: False An exercise warm-up slowly increases heart rate: True Prepared, processed foods usually have high sodium: True Depression is common after a heart attack: True The statin medications lower cholesterol: True To control blood pressure, lower the amount of sodium: True If someone gets chest discomfort during walking: False Transfats are partially hydrogenated vegetable oils: I Don't Know Sleep apnea that is not treated increases the risk: False To control cholesterol, one should become a vegetarian: False Someone knows if he/she is exercising at the right level: I Don't Know Diabetes cannot be prevented with exercise & health eating: False Stress is a large risk for heart attack: True A diet that can help lower blood pressure is rich in: True - Good knowledge base, but could improve. - Total Score Total Correct Responses: 18 Self-Efficacy Initial Assessment We would like to know how confident you are in doing certain activities. Please select your confidence level for:: Select your confidence level for the following using the scale 1-10 where 1 is not at all confident and 10 is totally confident. Your score is the average of all 6 responses. Fatigue: How confident are you that you can keep the fatigue caused by your disease from interfering with the things you want to do? Select Number: 8 Physical Discomfort or Pain: How confident are you that you can keep the physical discomfort or pain of your disease from interfering with the things you want to do? Select Number: 10 Emotional Distress: How confident are you that you can keep the emotional distress caused by your disease from interfering with the things you want to do? Select Number: 10 Other Symptoms or Health Problems: How confident are you that you can keep other symptoms or health problems from interfering with the things you want to do? Select Number: 10 Different Tasks and Activities: How confident are you that you can do the different tasks and activities needed to manage your health condition so as to reduce your need to see a doctor? Select Number: 10 Medication: How confident are you that you can do things other than just taking medication to reduce how much your illness affects your everyday life? Select Number: 10 Total Score:: 9 30-Day Re-eval Assessment We would like to know how confident you are in doing certain activities. Please select your confidence level for:: Select your confidence level for the following using the scale 1-10 where 1 is not at all confident and 10 is totally confident. Your score is the average of all 6 responses. Fatigue: How confident are you that you can keep the fatigue caused by your disease from interfering with the things you want to do? Select Number: 9 Physical Discomfort or Pain: How confident are you that you can keep the physical discomfort or pain of your disease from interfering with the things you want to do? Select Number: 10 Emotional Distress: How confident are you that you can keep the emotional distress caused by your disease from interfering with the things you want to do? Select Number: 10 Other Symptoms or Health Problems: How confident are you that you can keep other symptoms or health problems from interfering with the things you want to do? Select Number: 10 Different Tasks and Activities: How confident are you that you can do the different tasks and activities needed to manage your health condition so as to reduce your need to see a doctor? Select Number: 10 Medication: How confident are you that you can do things other than just taking medication to reduce how much your illness affects your everyday life? Select Number: 10 Total Score:: 9 60-Day Re-eval Assessment We would like to know how confident you are in doing certain activities. Please select your confidence level for:: Select your confidence level for the following using the scale 1-10 where 1 is not at all confident and 10 is totally confident. Your score is the average of all 6 responses. Fatigue: How confident are you that you can keep the fatigue caused by your disease from interfering with the things you want to do? Select Number: 10 Physical Discomfort or Pain: How confident are you that you can keep the physical discomfort or pain of your disease from interfering with the things you want to do? Select Number: 10 Emotional Distress: How confident are you that you can keep the emotional distress caused by your disease from interfering with the things you want to do? Select Number: 10 Other Symptoms or Health Problems: How confident are you that you can keep other symptoms or health problems from interfering with the things you want to do? Select Number: 10 Different Tasks and Activities: How confident are you that you can do the different tasks and activities needed to manage your health condition so as to reduce your need to see a doctor? Select Number: 10 Medication: How confident are you that you can do things other than just taking medication to reduce how much your illness affects your everyday life? Select Number: 10 Total Score:: 10 Nutrition Survey - Nutrition Survey Instructions Scoring Instructions: Scoring is as follows: Yes = 1 points. No = 0 point. Patient score that is >/=12 is considered to be at potential nutritional risk and could benefit from a referral to a registered dietitian. - Nutrition Survey Initial Have you lost >10 lbs over the past 2 months without trying?: No Are you following a special diet at home for diabetes, low fat, or low salt?: Yes Are you interested in meeting with a dietitian for help understanding your diet?: No Do you eat less than 3 meals a day?: No Do you eat fatty meats (su, sausage, ribs, etc), fried foods, desserts, large amounts of salad dressings, margarine, butter, or cheese most days?: No Do you have food allergies? [Enter types in comment field]: No Do you eat in restaurants more than 3 times a week?: No Do you season food with salt, seasoning salt, or garlic salt?: Yes Do you used canned, boxed, frozen meals, or soups, seasoning packets?: No - Patient has been referred to formal Diabetic Education Clinic and our strucutured weight loss programs through [facility]. Total Score:: 2
[2019-03-23 10:31] VITALS: BP 122/70; BP 142/72
== END 2019-04-06 23:59 ==
LOC: CR 11:30
PROVIDERS: Family Provider Internal Medicine; PCP Internal Medicine; Referring Provider Internal Medicine Cardiovascular Disease; Visit Provider Internal Medicine Cardiovascular Disease
DX: I25.10 Atherosclerotic heart disease of native coronary artery without angina pectoris (principal); Z95.5 Presence of coronary angioplasty implant and graft
CPT/HCPCS: 93798

== ENCOUNTER 2019-04-25 13:00 | Outpatient (RCR) | payer MEDICARE, SELFPAY ==
[2018-12-28 09:39] VITALS: BMI 44.2
[2019-03-11 10:34] VITALS: BMI 43.1
[2019-04-07 00:54] VITALS: BP 122/70; BP 142/72
--- NOTE | 2019-04-22 08:06 | PCM.CR.ITP ---
General Information - General Information Admitting Diagnosis: PCI with Coronary stenting - Education/Goals Barriers to Learning: None Cardiac Rehabilitation Goals: 1. Maintain the individual as the primary focus of care. 2. To improve the patient's quality of life. 3. Identification of cardiac risk factors and provide cardiac risk factor management. 4. Enhance the psychosocial status of the patient. 5. Reconditioning enough to allow the patient to resume customary activities. 6. Control symptoms of cardiac disease Scale for measuring improvement of personal goals: Enter appropriate number in Comments. 2 = Unchanged. 3 = Slightly Better. 4 = Moderate Improvement. 5 = Met my Goal Exercise - 90-Day Assessment - Visit Date of Eval: 04/22/19 Session #:: 27 - Stages of Change Stages of Change:: Action - Physician Prescribed Exercise Modalities: Treadmill, NuStep Frequency (days/week): 3 Duration (Minutes):: 30-45 Intensity: 60-80% age predicted maximum heart rate reserve METs - Progression: 0.5-1.0 MET, RPE 11-14 WEEK: 2.5 Target Heart Rate:: 102-133 Max HR 116 - Hypertension Resting Blood Pressure:: 158/78 Peak Exercise Blood Pressure:: 158/78 Medication Changes:: Yes - 04/11 atenolol increased to 50 mg twice daily - Intervention Home Exercise/Activity Goal:: Sitting Time <3 hrs/day - Education Goals:: Warm-up, RPE JOSUÉ Scale, S/S, Safe Exercise, Self-Monitoring - Exercise Program Goals Exercise Program Goals: Aerobic Activity >30 min, B/P <130/80 Nutrition - Initial Assessment - Program Goals Nutrition Program Goals: LDL <70. Total Cholesterol <200. HDL >45. Triglycerides <150. HgbA1C <7%. BMI <25 - Diabetes Do you monitor your blood sugar at home?: Yes - ENCOURAGED TO BRING MONITOR TO CR Nutrition - 90-Day Assessment - Program Goals Nutrition Program Goals: LDL <70. Total Cholesterol <200. HDL >45. Triglycerides <150. HgbA1C <7%. BMI <25 - Visit Date of Eval: 04/22/19 - Stages of Change Stages of Change:: Action - Diabetes Diabetes:: Yes Insulin: Yes - Weight Management Weight:: 109.769 kg - Intervention Referral to dietitian:: Yes Referral to Diabetic Clinic:: Yes Will attend diet classes:: Yes - Education Attended class for:: Signs & symptoms of hypoglycemia, Signs & symptoms of hyperglycemia, Relate diabetes to coronary artery disease, Healthy eating Tobacco - Initial Assessment - Program Goals Tobacco Program Goals: Complete smoking cessation. Attend education classes. Improve Knowledge Test score - Learning Barriers Learning Barriers: Ready to Learn Tobacco - 90-Day Assessment - Program Goals Tobacco Program Goals: Complete smoking cessation. Attend education classes. Improve Knowledge Test score - Stage of Change Stages of Change:: Action - Learning Barriers Learning Barriers: Participates in education - Family Support Do you have family support?: Yes - Tobacco Use Tobacco Use: Non-smoker Do you use smokeless tobacco?: No - Intervention Smoking Cessation Referral:: No Individual Education/Counseling:: No Education Schedule Given:: Yes - Education Attended class for:: Treating Heart Disease, How The Heart Works, What it means to have Heart Disease, How Coronary Artery Disease is Diagnosed, Heart Procedures, What Heart Medications Do, Risk Factors & Modifications, Living an Active Life, Nutrition, Emotions & Heart Disease, Stress Management & Relaxation, Sleep Disorders & Heart Disease Psychosocial - Initial Assess - Target Goals Target Goals: Assess presence or absence of depression. Using a valid screening tool, maximizes coping skills. Positive support system - Psychosocial Test Tool Used:: HANDS Depression Questionnaire - Assistive Devices Fall Risk Assessed:: Yes Psychosocial - 90-Day Assess - Target Goals Target Goals: Assess presence or absence of depression. Using a valid screening tool, maximizes coping skills. Positive support system - Stages of Change Stages of Change:: Action - Psychosocial Test Tool Used:: HANDS Depression Questionnaire - Intervention PS - Interventions: Yes Attend Stress Management Classes, Yes Uses Stress Management Skills, No Referral to Mental Health, No Referral to [facility] Case Management, No Referral to Physician - Education Attended classes for:: Coping techniques, Signs & symptoms of depression, Stress management, Relaxation techniques - Assistive Devices Assistive Devices:: None Fall Risk Assessed:: Yes Patient Health Questionnaire 90-Day Re-eval Assessment 1. Little interest or pleasure in doing things: Not at all 2. Feeling down, depressed, or hopeless: Not at all 3. Trouble falling or staying asleep, or sleeping too much: Not at all 4. Feeling tired or having little energy: Several days 5. Poor appetite or overeating: Not at all 6. Feeling bad about yourself -- or that you are a failure or have let yourself or your family down: Not at all 7. Trouble concentrating on things, such as reading the newspaper or watching television: Not at all 8. Moving or speaking so slowly that other people could have noticed. Or the opposite - being so fidgety or restless that you have been moving around a lot more than usual: Not at all 9. Thoughts that you would be better off , or of hurting yourself in some way: Not at all How difficult have these problems made it for you to do your work, take care of things at home, or get along with other people?: Not difficult at all Total Score: 1 Self-Efficacy 90-Day Re-eval Assessment We would like to know how confident you are in doing certain activities. Please select your confidence level for:: Select your confidence level for the following using the scale 1-10 where 1 is not at all confident and 10 is totally confident. Your score is the average of all 6 responses. Fatigue: How confident are you that you can keep the fatigue caused by your disease from interfering with the things you want to do? Select Number: 8 Physical Discomfort or Pain: How confident are you that you can keep the physical discomfort or pain of your disease from interfering with the things you want to do? Select Number: 10 Emotional Distress: How confident are you that you can keep the emotional distress caused by your disease from interfering with the things you want to do? Select Number: 10 Other Symptoms or Health Problems: How confident are you that you can keep other symptoms or health problems from interfering with the things you want to do? Select Number: 10 Different Tasks and Activities: How confident are you that you can do the different tasks and activities needed to manage your health condition so as to reduce your need to see a doctor? Select Number: 10 Medication: How confident are you that you can do things other than just taking medication to reduce how much your illness affects your everyday life? Select Number: 10 Total Score:: 9
[2019-04-22 08:17] VITALS: BP 158/78
--- NOTE | 2019-04-25 11:03 | PCM.CR.ITP ---
Exercise - Final/Discharge - Visit Date of Eval: 04/25/19 Session #:: 34 - Patient missed a few session due to transportation issues. Otherwise, she was fully committed to her CR program. - Stages of Change Stages of Change:: Action - Physician Prescribed Exercise Modalities: Treadmill, Airdyne, NuStep, SciFit Frequency (days/week): 3 - Mon, Wed, Fri Duration (Minutes):: 30-45 min Intensity: 60-80% age predicted maximum heart rate reserve METs - Progression: 0.5-1.0 MET, RPE 11-14 WEEK: 2.5; physical limitations to achieve higher MET levels Target Heart Rate:: 102-133 Max HR 116 - Hypertension Do any of the following apply?: Yes Resting Blood Pressure:: 144/84 Peak Exercise Blood Pressure:: 158/78 - Intervention Home Exercise/Activity Goal:: Sitting Time <3 hrs/day - Education Goal Progress: Goal Met - patient stated she is much more physically active at home; does daily chores housework without incident. - Exercise Program Goals Exercise Program Goals: Aerobic Activity >30 min Nutrition - Initial Assessment - Program Goals Nutrition Program Goals: LDL <70. Total Cholesterol <200. HDL >45. Triglycerides <150. HgbA1C <7%. BMI <25 - Diabetes Do you monitor your blood sugar at home?: Yes - ENCOURAGED TO BRING MONITOR TO CR Nutrition - Final Assessment - Program Goals Nutrition Program Goals: LDL <70. Total Cholesterol <200. HDL >45. Triglycerides <150. HgbA1C <7%. BMI <25 - Visit Date of Eval: 04/25/19 - Final Discharge - Stages of Change Stages of Change:: Action - Lipids Total Cholesterol (mg/dL) Goal = less than 200 mg/dL: 162 - Desirable HDL Cholesterol (mg/dL) Goal = less than 45 mg/dL: 35 - Low HDL Cholesterol LDL Cholesterol (mg/dL) Goal = less than 70 mg/dL: 91 Triglycerides (mg/dL) Goal = less than 150 mg/dL: 182 - Borderline high Have there been any medication changes?: none - Diabetes Diabetes:: Yes Fasting blood glucose:: 183 - high on 01/01/2019 Insulin: Yes Non-Insulin Dependent?: Yes - Weight Management Height: 5 ft 2 in Weight:: 242 lb Body Fat %:: 43.1 - Intervention Referral to dietitian:: Yes - Patient declined structured weight loss program. Referral to Diabetic Clinic:: Yes - Patient has been through previous Diabetic Education and Diabetic Clinic Will attend diet classes:: Yes - Education Education Goal Reached?: Yes - Discussed the importance of weight loss and encouraged patient once again. Tobacco - Initial Assessment - Program Goals Tobacco Program Goals: Complete smoking cessation. Attend education classes. Improve Knowledge Test score - Learning Barriers Learning Barriers: Ready to Learn Tobacco - Final Assessment - Program Goals Tobacco Program Goals: Complete smoking cessation. Attend education classes. Improve Knowledge Test score - Stage of Change Stages of Change:: Action - Learning Barriers Cardiac Knowledge Test Score:: 0 - See YOVANA-Q Score - Family Support Do you have family support?: Yes - Tobacco Use Tobacco Use: Non-smoker Do you use smokeless tobacco?: No - Intervention Smoking Cessation Referral:: No Individual Education/Counseling:: No Education Schedule Given:: Yes - Education Education Goal Reached?: Yes - Patient actively participated in patient education classes. Psychosocial - Initial Assess - Target Goals Target Goals: Assess presence or absence of depression. Using a valid screening tool, maximizes coping skills. Positive support system - Psychosocial Test Tool Used:: HANDS Depression Questionnaire - Assistive Devices Fall Risk Assessed:: Yes Psychosocial - Final Assessmen - Target Goals Target Goals: Assess presence or absence of depression. Using a valid screening tool, maximizes coping skills. Positive support system - Stages of Change Stages of Change:: Action - Psychosocial Test Tool Used:: HANDS Depression Questionnaire - Intervention PS - Interventions: Yes Attend Stress Management Classes, Yes Uses Stress Management Skills - Patinet states she is allowing herself 30 minutes daily to rest and use stress release skills; and is attempting to avoid stressful situations., No Referral to Mental Health, No Referral to [facility] Case Management, No Referral to Physician - Education Education Goal Reached?: Yes - Patient/Program Goal Preventative Medication(s):: Aspirin, VICTOR MANUEL inhibitor, Clopidogrel, Beta miles, Statin/lipid - Patient is compliant with current medication use. - Assistive Devices Assistive Devices:: Cane, Walker Fall Risk Assessed:: Yes Patient Health Questionnaire Discharge Assessment 1. Little interest or pleasure in doing things: Not at all 2. Feeling down, depressed, or hopeless: Not at all 3. Trouble falling or staying asleep, or sleeping too much: Several days 4. Feeling tired or having little energy: Several days 5. Poor appetite or overeating: Not at all 6. Feeling bad about yourself -- or that you are a failure or have let yourself or your family down: Not at all 7. Trouble concentrating on things, such as reading the newspaper or watching television: Not at all 8. Moving or speaking so slowly that other people could have noticed. Or the opposite - being so fidgety or restless that you have been moving around a lot more than usual: Not at all 9. Thoughts that you would be better off , or of hurting yourself in some way: Not at all How difficult have these problems made it for you to do your work, take care of things at home, or get along with other people?: Not difficult at all Total Score: 2 YOVANA-Q SV Test - Statements CAD is a disease of the arteries in the heart: False Examples of risk factors for heart disease: True Angina is chest pain or discomfort: True The benefits of resistance training include: True Eating more meat and dairy products: False Anti-platelet medications such as aspirin are important: True The only effective way to manage stress: False An exercise warm-up slowly increases heart rate: True Prepared, processed foods usually have high sodium: True Depression is common after a heart attack: True The statin medications lower cholesterol: True To control blood pressure, lower the amount of sodium: True If someone gets chest discomfort during walking: False Transfats are partially hydrogenated vegetable oils: True Sleep apnea that is not treated increases the risk: False To control cholesterol, one should become a vegetarian: False Someone knows if he/she is exercising at the right level: True Diabetes cannot be prevented with exercise & health eating: False Stress is a large risk for heart attack: True A diet that can help lower blood pressure is rich in: True - Total Score Total Correct Responses: 20 Self-Efficacy Discharge Assessment We would like to know how confident you are in doing certain activities. Please select your confidence level for:: Select your confidence level for the following using the scale 1-10 where 1 is not at all confident and 10 is totally confident. Your score is the average of all 6 responses. Fatigue: How confident are you that you can keep the fatigue caused by your disease from interfering with the things you want to do? Select Number: 7 Physical Discomfort or Pain: How confident are you that you can keep the physical discomfort or pain of your disease from interfering with the things you want to do? Select Number: 8 Emotional Distress: How confident are you that you can keep the emotional distress caused by your disease from interfering with the things you want to do? Select Number: 9 Other Symptoms or Health Problems: How confident are you that you can keep other symptoms or health problems from interfering with the things you want to do? Select Number: 10 Different Tasks and Activities: How confident are you that you can do the different tasks and activities needed to manage your health condition so as to reduce your need to see a doctor? Select Number: 10 Medication: How confident are you that you can do things other than just taking medication to reduce how much your illness affects your everyday life? Select Number: 10 Total Score:: 9 Nutrition Survey - Nutrition Survey Instructions Scoring Instructions: Scoring is as follows: Yes = 1 points. No = 0 point. Patient score that is >/=12 is considered to be at potential nutritional risk and could benefit from a referral to a registered dietitian. - Nutrition Survey Discharge Have you lost >10 lbs over the past 2 months without trying?: No Are you following a special diet at home for diabetes, low fat, or low salt?: Yes - Low Fat, no added sodium diet. Are you interested in meeting with a dietitian for help understanding your diet?: No Do you eat less than 3 meals a day?: Yes - Patient was encouraged to eat 5 smaller meals a day due to her diabetes, and discussed the importance of controlling her glucose levels versus skipping meals throughout the day. Do you eat fatty meats (su, sausage, ribs, etc), fried foods, desserts, large amounts of salad dressings, margarine, butter, or cheese most days?: No Do you have food allergies? [Enter types in comment field]: No Do you eat in restaurants more than 3 times a week?: No Do you season food with salt, seasoning salt, or garlic salt?: No - Patient is no longer using added sodium. Do you used canned, boxed, frozen meals, or soups, seasoning packets?: No Total Score:: 2
[2019-04-25 11:35] VITALS: BP 144/84; BP 158/78
--- NOTE | 2019-04-25 14:11 | CR.ITP_ITS ---
Nutrition - Initial Assessment - Program Goals Nutrition Program Goals: LDL <70. Total Cholesterol <200. HDL >45. Trig lycerides <150. HgbA1C <7%. BMI <25 - Diabetes Do you monitor your blood sugar at home?: Yes - ENCOURAGED TO BRING MONITOR TO CR Tobacco - Initial Assessment - Program Goals Tobacco Program Goals: Complete smoking cessation. Attend education classes. Improve Knowledge Test score - Learning Barriers Learning Barriers: Ready to Learn Psychosocial - Initial Assess - Target Goals Target Goals: Assess presence or absence of depression. Using a valid screening tool, maximizes coping skills. Positive support system - Psychosocial Test Tool Used:: HANDS Depression Questionnaire - Assistive Devices Fall Risk Assessed:: Yes
== END 2019-05-07 23:59 ==
LOC: CR 13:00
PROVIDERS: Family Provider Internal Medicine; PCP Internal Medicine; Referring Provider Internal Medicine Cardiovascular Disease; Visit Provider Internal Medicine Cardiovascular Disease
DX: I25.10 Atherosclerotic heart disease of native coronary artery without angina pectoris (principal); Z95.5 Presence of coronary angioplasty implant and graft
CPT/HCPCS: 93798

== ENCOUNTER 2021-06-25 09:40 | Inpatient (IN) | payer MEDICARE, SELFPAY ==
[2021-06-25] VITALS (11 sets, daily range): BP systolic 106–135; BP diastolic 62–86; PULSE 71–134; RESP 18–24; TEMP 36.1–37.8; O2SAT 91–95; BMI 41.1; BMI 39.9
--- NOTE | 2021-06-25 10:22 | EKG12_ITS ---
Test Reason : Blood Pressure : / mmHG Vent. Rate : 126 BPM Atrial Rate : 122 BPM P-R Int : 000 ms QRS Dur : 080 ms QT Int : 320 ms P-R-T Axes : 000 048 030 degrees QTc Int : 463 ms Atrial fibrillation with premature ventricular or aberrantly conducted complexes Septal infarct , age undetermined Abnormal ECG Confirmed by KATHLEEN DAVIS, MARTI ([id number]), dictionary editor ARNOLD MILNER ([id number]) on 06/26/2021 9:28:43 AM Referred By: THOMPSON Confirmed By:MARTI WANG MD
--- NOTE | 2021-06-25 10:23 | EDS_ITS ---
HPI History of Present Illness Chief Complaint: Shortness of Breath Informant: patient and family Narrative Narrative: Patient presents with overall feeling worse with Covid. She thinks her symptoms started about 10 days ago. She was diagnosed as an outpatient last Thursday. She states she does get periods of shortness of breath. She has myalgias. She has significant malaise. She is never vomited but she has nausea every time she eats so she is not eating or drinking much. No diarrhea. No chest pain. She denies feeling her heart go quickly now. But she does complain of feeling short of breath. She denies history of atrial fibrillation or flutter. [facility] Medical History Atherosclerotic heart disease of [place] coronary artery without angina pectoris Chest pain Depression Essential hypertension Hx of non-ST elevation myocardial infarction (NSTEMI) Hyperlipidemia NSTEMI (non-ST elevated myocardial infarction) Old myocardial infarction Presence of stent in coronary artery (~12/28/18) S/P coronary artery stent placement (~12/28/18) Tachycardia Type 2 diabetes mellitus Unstable angina Home Medications aspirin 81 mg PO DAILY 12/27/18 [History Last Taken 12/27/18] fluoxetine 40 mg PO DAILY 12/27/18 [History Last Taken 12/27/18] glimepiride 2 mg PO BID 12/27/18 [History Last Taken 12/27/18] insulin glargine 18 - 23 unit SUBCUT QHS 12/27/18 [History Last Taken 12/26/18] lisinopril 5 mg PO DAILY 12/27/18 [History Last Taken 12/27/18] metformin 500 mg PO TID 12/27/18 [History Last Taken 12/27/18] clopidogrel 75 mg PO DAILY #30 tab 01/01/19 [Rx Last Taken Unknown] pravastatin 80 mg PO QHS #30 tab 01/01/19 [Rx Last Taken Unknown] atenolol 50 mg tablet 50 mg PO BID tab 04/08/19 [History Last Taken Unknown] furosemide 40 mg tablet 40 mg PO BID tab 05/04/19 [History Last Taken Unknown] Allergy/AdvReac Type Severity Reaction Status Date / Time Sulfa (Sulfonamide Allergy Hives Verified 11/17/19 10:11 Antibiotics) Surgical History History of cholecystectomy Presence of coronary angioplasty implant and graft (~12/28/18) Social History Smoking Status: Former smoker alcohol intake: never substance use type: does not use caffeine: No ROS ROS ED Constitutional Constitutional ED: Reports chills and fever(s) Eyes Eyes: Denies blurry vision ENT ENT ED: Reports rhinorrhea; Denies sore throat Cardiovascular Cardiovascular: Denies chest pain or palpitations Respiratory/Chest Respiratory/Chest: Reports cough, dyspnea and dyspnea on exertion; Denies sputum Gastrointestinal Gastrointestinal: Reports nausea; Denies abdominal pain, diarrhea or vomiting Genitourinary Genitourinary ED: Denies dysuria Musculoskeletal Musculoskeletal: Reports myalgias Integumentary Denies rash Neurologic Neurologic: Reports headache(s); Denies paresthesias or weakness Psychiatric Psychiatric: Reports depression Endocrine Endocrinology: Denies polydipsia or polyuria Hematologic/Lymphatic Hematologic/Lymphatic: Denies easy bleeding or easy bruising Allergic/Immunologic Allergic/Immunologic ED: Denies urticaria EXAM Physical Exam Const Vital Signs: 06/25/21 09:40 06/25/21 10:40 Temperature 97 F L Temperature Source Temporal Pulse Rate 71 Respiratory Rate 18 Respiratory Effort Short of Breath Respiratory Pattern Tachypnea Blood Pressure 122/84 H Blood Pressure Mean 96 Pulse Ox 95 Oxygen Delivery Method Room Air Positive well nourished, well developed and obese General Appearance ED: well developed Nutritional Appearance: obese HEENT Reports dry mucous membranes Mouth ED: Yes dry mucous membranes Mouth: dry mucous membranes Eyes General Eye ED: Negative for pale conjunctiva or scleral icterus Neck no JVD Resp normal respiratory effort Auscultation: rhonchi; Negative for rales or wheezes Cardio Cardio Narrative: On the monitor, patient is in an irregularly irregular rhythm that varies anywhere from about 1 15-1 45. Rate: tachycardic Rhythm: abnormal rhythm GI non-tender and non-distended Palpation: soft Extremity normal to inspection General Extremety ED: Negative for edema General Extremity: Negative for edema Neuro oriented x3 Sensorium / Orientation: alert, oriented to person and oriented to place Psych mental status grossly normal Skin Lesions: no lesions Rashes: no rashes [facility] MDM EKG Initial EKG: Comments: EKG done for tachycardia and dyspnea read by me shows atrial fibrillation with overall ventricular rate of 126. There is a single PVC. No significant ST elevation or depression. There is some nonspecific changes anteriorly. QRS duration and QTc are normal. The anterior EKG changes have been seen on prior EKGs. But the atrial fibrillation is new. Discharge Plan Triage Chief Complaint: Shortness of Breath ED Provider: Jeovanny Ferrara Dx/Rx/DC Orders Prescriptions: No Action furosemide 40 mg tablet 40 mg PO BID RF: 0 metformin 500 MG tablet 500 mg PO TID RF: 0 insulin glargine 100 UNIT/ML solution 18 - 23 unit subcut QHS RF: 0 aspirin 81 MG tablet,delayed release (DR/EC) 81 mg PO DAILY RF: 0 glimepiride 4 MG tablet 2 mg PO BID RF: 0 lisinopril 5 MG tablet 5 mg PO DAILY RF: 0 fluoxetine 40 MG capsule 40 mg PO DAILY RF: 0 clopidogrel 75 MG tablet 75 mg PO DAILY Qty: 30 RF: 1 pravastatin 80 MG tablet 80 mg PO QHS Qty: 30 RF: 1 atenolol 50 mg tablet 50 mg PO BID RF: 0 Primary Care Provider: Nena Calvillo
[2021-06-25] MEDS: Ondansetron 4 MG/2 ML Vial IV (10:36)
[2021-06-25 10:53] LABS: Absolute Lymphocyte Count 0.84 X10^3/uL (0.83-4.51); Absolute Neutrophil Count 2.5 X10^3/uL (2.0-7.7); Hematocrit 39.3 % (37-47); Hemoglobin 13.3 g/dL (12.0-15.0); Lymphocyte # 0.84 X10^3/ul (0.83-4.51); Lymphocyte % 23.7 % (19-41); Mean Corp Hgb Conc 33.8 g/dL (32-36); Mean Corpuscular Hgb 29.6 pg (27.0-32.0); Mean Corpuscular Volume 87.5 fL (81-99); Mean Platelet Vol. 10.5 fl (6.2-12.0); Monocyte# 0.21 X10^3/uL; Monocyte% 5.9 % (0-10); NRBC Flagged by Analyzer 0 % (0-5); Neutrophil # 2.48 X10^3/uL (2.7-7.7); Neutrophil % 69.8 % (47-70); POSITIVE MORPHOLOGY YES; Platelet Count 168 K/mm3 (150-450); RBC Distribution Width CV 13.2 % (11.6-14.6); RBC Distribution Width SD 42.6 fl (35.1-43.9); Red Blood Count 4.49 M/mm3 (4.2-5.4); White Blood Count 3.6 K/mm3 (4.4-11.0)
--- NOTE | 2021-06-25 10:54 | RAD_ITS ---
STUDY: X-RAY CHEST REASON FOR EXAM: Female, 66 years old. SOB, [place] TECHNIQUE: Single AP portable view of the chest. COMPARISON: Comparison is made with prior study dated 12/31/2018. FINDINGS: EKG electrodes are seen. There now is evidence of bilateral pulmonary infiltrates. This is worse in the right lower lobe. Stable elevation of the right hemidiaphragm. There is no demonstrated pleural abnormality. Normal size heart. Normal mediastinum and caridad. Normal visualized pulmonary arteries. Normal visualized aortic arch and descending thoracic aorta. Normal visualized thoracic spine. There is degenerative osteoarthritis of the bilateral shoulders. There is no demonstrated abnormality of the visualized soft tissue structures of the upper abdomen. RAD/Chest 1 View (Portable) IMPRESSION: New bilateral pulmonary infiltrates worse at the right lung base. Electronically Signed: Gabo Mercer MD at 11:12 EDT , Service support ,
[2021-06-25 10:55] LABS: Differential Indicated SCAN CRITERIA MET
[2021-06-25] MEDS: Metoprolol Tartrate 5 MG/5 ML Vial IV ×3 (11:02→18:33)
[2021-06-25 11:12] LABS: Anion Gap 12 (5-15); BUN 18 mg/dL (7-18); BUN/Creat Ratio 17.5 RATIO (10-20); Calcium,Total 8.5 mg/dL (8.5-10.1); Chloride 98 mmol/L (98-107); Creatinine, Serum 1.03 mg/dL (0.55-1.02); EST Glomerular Filtration Rate 57 mL/min (>60); Est Glom Filt Rate - Afr Amer 69 mL/min (>60); Estimated Creatinine Clearance 46.39 ml/min; Glucose 323 mg/dL (74-106); Potassium 3.7 mmol/L (3.5-5.1); Sodium Level 135 mmol/L (136-145); Troponin-I HS 33 pg/mL (3.0-54.0)
[2021-06-25 11:23] LABS: Lactic Acid 1.9 mmol/L (0.4-1.9)
--- NOTE | 2021-06-25 12:07 | HP.PCM.HOS_ITS ---
HPI - General General Date of Admission: 06/25/21 HPI Narrative ELISABET VAUGHAN, is a 66 F with a PMH as outlined who presents via the ED on 06/25/2021 with a complaint of worsening shortness of breath and myalgia and generalised malaise. She was diagnosed with covid in the outpatient setting about 10 days ago. Her symptoms have gradually worsened. She also denies any chest pain but does admit to nausea, but no vomiting. Review of systems is otherwise negative. Vitals showed temp of 97F, AK of 134, BP of 122.84, RR of 18 and she was saturating at 95% on room air. EKG showed afib with RVR. She has no history of afib. CBC was unremarkable, and BMP showed Cr of 1.03 and glucose of 323. Initial troponin was 33. She was given a dose of metoprolol IV. She is being admitted to be managed for afib with RVR and acute hypoxic respiratory insufficiency due to covid 19 pneumonia [facility] Medical History (Updated 06/25/21 @ 14:01 by Michaela Kelly) Atherosclerotic heart disease of [place] coronary artery without angina pectoris Chest pain Depression Essential hypertension Hx of non-ST elevation myocardial infarction (NSTEMI) Hyperlipidemia NSTEMI (non-ST elevated myocardial infarction) Old myocardial infarction Presence of stent in coronary artery (~12/28/18) S/P coronary artery stent placement (~12/28/18) Tachycardia Type 2 diabetes mellitus Unstable angina Urinary tract infection Home Medications aspirin 81 mg PO DAILY 12/27/18 [History Last Taken 06/24/21] fluoxetine 40 mg PO DAILY 12/27/18 [History Last Taken 06/24/21] insulin glargine 31 unit SUBCUT QHS 12/27/18 [History Last Taken 06/24/21] lisinopril 5 mg PO DAILY 12/27/18 [History Last Taken 06/24/21] atenolol 50 mg tablet 50 mg PO BID tab 04/08/19 [History Last Taken 06/24/21] furosemide 40 mg tablet 40 mg PO BID tab 05/04/19 [History Last Taken 06/24/21] clopidogrel 75 mg PO DAILY 06/25/21 [History Last Taken 06/24/21] ibuprofen 800 mg PO Q8H PRN 06/25/21 [History Last Taken Unknown] metformin 500 mg PO BIDCM 06/25/21 [History Last Taken 06/24/21] rosuvastatin 5 mg PO QHS 06/25/21 [History Last Taken 06/24/21] Allergy/AdvReac Type Severity Reaction Status Date / Time Sulfa (Sulfonamide Allergy Hives Verified 11/17/19 10:11 Antibiotics) Surgical History History of cholecystectomy Presence of coronary angioplasty implant and graft (~12/28/18) Social History Smoking Status: Former smoker alcohol intake: never substance use type: does not use caffeine: No ROS Constitutional Constitutional: Reports anorexia, chills, fatigue, malaise and weakness; Denies change in weight or fever(s) Eyes Eyes: Denies blurry vision ENT HEENT: Denies abnormal hearing or nasal congestion Cardiovascular Cardiovascular: Reports dyspnea on exertion and lightheadedness; Denies chest pain, claudication, edema, orthopnea, paroxysmal nocturnal dyspnea, rapid heart rate or syncope Respiratory/Chest Respiratory/Chest: Reports cough, dyspnea, productive cough, shortness of breath at rest and shortness of breath with exertion; Denies excessive phlegm production Gastrointestinal Gastrointestinal: Reports abdominal pain, coffee ground emesis, diarrhea, loose stools, nausea and vomiting Genitourinary Genitourinary: Reports burning urination Psychiatric Psychiatric: Reports anxiety and depression Endocrine Endocrinology: Reports change in body appearance Allergic/Immunologic Allergic/Immunologic: Reports asthma Vital Signs Vital Signs Vital Signs: 06/25/21 09:40 06/25/21 10:40 06/25/21 11:00 Temperature 97 F L Temperature Source Temporal Pulse Rate 71 134 H Respiratory Rate 18 Respiratory Effort Short of Breath Respiratory Pattern Tachypnea Blood Pressure 122/84 H Blood Pressure Mean 96 Pulse Ox 95 Oxygen Delivery Method Room Air Weight Weight: 240 lb Body Mass Index (BMI) 41.1 Physical Exam Const alert, oriented x3, no apparent distress and well nourished General Appearance: cooperative HEENT normocephalic, hearing grossly normal bilaterally and moist oral mucous membranes Eyes PERRL, EOMs intact bilaterally and conjunctivae normal Neck no lymphadenopathy Resp normal respiratory effort, no retractions, no use of accessory muscles and clear to auscultation bilaterally Cardio S1 normal heart sound, S2 normal heart sound and no murmurs Cardio Narrative: afib with RVR GI normal to inspection, nondistended, normoactive bowel sounds, soft to palpation, non-tender and non-distended Extremity normal to inspection, full ROM and no clubbing, cyanosis or edema Peripheral Pulses: Yes pulses 2+ throughout Skin no rashes or lesions noted Neuro oriented x3, CN's II-XII intact bilaterally and moves all extremities Sensorium / Orientation: awake and alert Psych affect normal Results Lab / Micro Data Result Diagrams: 06/26/21 06:42 06/26/21 06:42 Labs: Laboratory Results - last 24 hr 06/25/21 10:37: WBC 3.6 L, RBC 4.49, Hgb 13.3, Hct 39.3, MCV 87.5, MCH 29.6, MCHC 33.8, RDW Std Deviation 42.6, RDW Coeff of Maritza 13.2, Plt Count 168, MPV 10.5, Immature Gran % (Auto) 0.600, Neut % (Auto) 69.8, Lymph % (Auto) 23.7, [place] % (Auto) 5.9, Eos % (Auto) 0.0, Baso % (Auto) 0.0, Absolute Neuts (auto) 2.5, Absolute Lymphs (auto) 0.84, Nucleated RBC % 0 06/25/21 10:37: Sodium 135 L, Potassium 3.7, Chloride 98, Carbon Dioxide 25.0, Anion Gap 12, BUN 18, Creatinine 1.03 H, Estim Creat Clear Calc 46.39, Est GFR (MDRD) Af Amer 69, Est GFR (MDRD) Non-Af 57 L, BUN/Creatinine Ratio 17.5, Glucose 323 H, Calcium 8.5, Troponin I High Sens 33 06/25/21 10:37: Lactic Acid 1.9 Radiology Impression Chest X-Ray 06/25/21 10:54 IMPRESSION: New bilateral pulmonary infiltrates worse at the right lung base. Electronically Signed: Gabo Mercer MD at 11:12 EDT , Service support , Assessment & Plan Assessment/Plan (1) Paroxysmal atrial fibrillation with RVR: (2) COVID: PLAN: #Afib with RVR * this is new onset afib. * was given metoprolol IV in the ED, which helped bring down her HR * admit to PCU with telemetry. * start on cardizem drip if HR remains poorly controlled; if control improves, will start on PO metoprolol 50mg bid. * check TSH. * start on therapeutic lovenox * get 2D echo #COVID 19 pneumonia * start on decadron and remdesivir. * titrate oxygen to maintain sats >90% * breathing treatment with bronchodilators * #Type 2 diabetes mellitus * continue home lantus. ISS. Accuchecks ACHS * #CAD: on statin, aspirin and plavix as well as atenolol DVT prophylaxis: on therapeutic lovenox Code status: full code. * patient counseled about differences between full code, DNRCC and DNRCCA and asked about whether she would consent to CPR and intubation if needed. Patient was agreeable to CPR and intubation if needed, and so elects to be a full code. * total face to face time- 16 mins. Charges/Coding Visit Charges Inpatient E&M: 96446 Init Hosp L3 Procedures Hospitalists Procedures: 52385 Advncd Care Plan 30 Min
[2021-06-25] MEDS: dexAMETHasone 10 MG/ML Vial 6 MG IV (12:24)
[2021-06-25] MEDS: Insulin Lispro 100 UNIT/ML INSULN.PEN 6 UNIT SC (12:24)
--- NOTE | 2021-06-25 13:09 | NURSING ---
117 KORAM NEW ONSET AFIB
--- NOTE | 2021-06-25 14:52 | PCS.PANDOC ---
PANDEMIC DOCUMENTATION INITIATED: Date: 04/22/2021 Time: 190
[2021-06-25 14:59] LABS: D-Dimer Quantitative (DVT/PE) 0.87 FEU/ug/m (0.27-0.49)
[2021-06-25 15:03] LABS: AST(SGOT) 37 U/L (15-37); Alanine Aminotransfer ALT/SGPT 27 U/L (13-56); Albumin, Serum 2.4 g/dL (3.2-5.0); Alkaline Phosphatase 156 U/L (45-117); Bilirubin, Direct 0.28 mg/dL (0.00-0.30); Globulin 5.2 g/dL (2.2-4.2); LDH 308 U/L (84-246); Protein, Total 7.6 g/dL (6.4-8.2); Troponin-I HS 38 pg/mL (3.0-54.0)
[2021-06-25 15:36] LABS: Fibrinogen 631 mg/dl (203-444)
--- NOTE | 2021-06-25 15:39 | ECHOD_ITS ---
Reason For Study: A. fib/flutter Procedure This was a 2D Doppler, Color Flow transthoracic echocardiogram. Exam performed portable in patient room. The exam was abbreviated due to the COVID 19 protocol. Left Ventricle Normal LV size. Left ventricular systolic function is normal. The estimated ejection fraction is 55 %. No regional wall motion abnormalities noted. Right Ventricle Normal RV size. Normal systolic function. Atria Normal left atrium. Normal right atrium. Mitral Valve Normal mitral valve. Tricuspid Valve Normal tricuspid valve. Aortic Valve Trisinus/trileaflet aortic valve. Pulmonic Valve The pulmonic valve is not well visualized. Great Vessels Normal aortic root. The pulmonary is not well visualized. Normal inferior vena cava. Pericardium/Pleural No pericardial effusion. MMode/2D Measurements & Calculations LVIDd: 3.8 cm IVSd: 1.2 cm Ao root diam: 3.0 cm LVIDs: 2.4 cm LVPWd: 1.4 cm RVDd: 3.0 cm FS: 37.1 % LAV(MOD-bp): 49.6 ml LA A4 area: 19.8 cm2 LA dimension(2D): 3.8 cm LAV(MOD-bp) Indexed: 23.8 ml/m2 LAV(MOD-sp2): 35.8 ml LAV(MOD-sp4): 57.3 ml RA A4 area: 14.1 cm2 Doppler Measurements & Calculations MV E max butch: 96.4 cm/sec Ao V2 max: 139.1 cm/sec LV V1 max: 84.7 cm/sec Ao max P.7 mmHg LV V1 max P.9 mmHg ECHO/Echo Complete Interpretation Summary Normal LV size. Left ventricular systolic function is normal. The estimated ejection fraction is 55 %. The study was technically difficult. Ordering Physician: Inga Flynn Referring Physician: Nena Calvillo M.D. Performed By: Eloina Wiseman RDCS
[2021-06-25] MEDS: Metoprolol Tartrate 25 MG Tablet PO ×2 (15:53→20:16)
[2021-06-25] MEDS: Acetaminophen 325 MG Tablet 650 MG PO (15:54)
[2021-06-25] MEDS: Insulin Lispro 100 UNIT/ML INSULN.PEN SC ×2 (15:55→20:22)
[2021-06-25 16:16] LABS: Bedside Glucose 292 mg/dL (70-110)
[2021-06-25 16:22] LABS: Alkaline Phosphatase 158 U/L (45-117)
[2021-06-25] MEDS: Nystatin Powder 15gm Bottle 1 APPLIC TOPICAL ×2 (17:01→20:21)
[2021-06-25] MEDS: Menthol/Lanolin/Calamine/Znox 113 GM Tube 1 APPLIC TOPICAL ×2 (17:02→20:15)
[2021-06-25] MEDS: metFORMIN (XR) 500 MG Tablet PO (17:10)
[2021-06-25] MEDS: Furosemide 40 MG Tablet PO (17:10)
[2021-06-25 18:33] LABS: Thyroid Stim Hormone (TSH) 0.36 uIU/mL (0.358-3.74); Troponin-I HS 43 pg/mL (3.0-54.0)
[2021-06-25] MEDS: 0.9% Saline Lock 10 ML Syringe IV (18:34)
[2021-06-25] MEDS: Atorvastatin Calcium 10 MG Tablet PO (20:16)
[2021-06-25] MEDS: Ibuprofen 400 MG Tablet 800 MG PO (20:16)
[2021-06-25] MEDS: Enoxaparin 100 MG/ML Syringe SC (20:16)
[2021-06-25 20:46] LABS: Bedside Glucose 374 mg/dL (70-110)
[2021-06-26] VITALS (14 sets, daily range): BP systolic 114–146; BP diastolic 57–98; PULSE 89–99; RESP 16–18; TEMP 36.1–36.7; O2SAT 90–97
[2021-06-26] MEDS: Nystatin Powder 15gm Bottle 1 APPLIC TOPICAL ×3 (06:28→20:51)
[2021-06-26] MEDS: 0.9% Saline Lock 10 ML Syringe IV ×2 (06:29→10:20)
[2021-06-26] MEDS: Insulin Lispro 100 UNIT/ML INSULN.PEN SC ×4 (06:30→20:49)
[2021-06-26 06:46] LABS: Bedside Glucose 372 mg/dL (70-110)
[2021-06-26 07:20] LABS: Absolute Lymphocyte Count 1.02 X10^3/uL (0.83-4.51); Basophil# 0.04 X10^3/uL; Basophil% 1.2 % (0-1); Hematocrit 42.8 % (37-47); Hemoglobin 13.3 g/dL (12.0-15.0); Lymphocyte # 1.02 X10^3/ul (0.83-4.51); Lymphocyte % 29.4 % (19-41); Mean Corp Hgb Conc 31.1 g/dL (32-36); Mean Corpuscular Hgb 29.4 pg (27.0-32.0); Mean Corpuscular Volume 94.5 fL (81-99); Mean Platelet Vol. 10.7 fl (6.2-12.0); Monocyte# 0.35 X10^3/uL; Monocyte% 10.1 % (0-10); NRBC Flagged by Analyzer 0 % (0-5); Neutrophil # 2.04 X10^3/uL (2.7-7.7); Neutrophil % 58.7 % (47-70); POSITIVE MORPHOLOGY YES; Platelet Count 183 K/mm3 (150-450); RBC Distribution Width CV 13.5 % (11.6-14.6); RBC Distribution Width SD 46.9 fl (35.1-43.9); Red Blood Count 4.53 M/mm3 (4.2-5.4); White Blood Count 3.5 K/mm3 (4.4-11.0)
[2021-06-26 07:24] LABS: Differential Indicated SCAN CRITERIA MET
[2021-06-26 07:45] LABS: ALB/GLOB Ratio 0.4 RATIO (0.9-2.4); AST(SGOT) 46 U/L (15-37); Alanine Aminotransfer ALT/SGPT 28 U/L (13-56); Albumin, Serum 2.2 g/dL (3.2-5.0); Alkaline Phosphatase 148 U/L (45-117); Anion Gap 9 (5-15); BUN 34 mg/dL (7-18); BUN/Creat Ratio 29.1 RATIO (10-20); Calcium,Total 8.2 mg/dL (8.5-10.1); Chloride 102 mmol/L (98-107); Creatinine, Serum 1.17 mg/dL (0.55-1.02); EST Glomerular Filtration Rate 49 mL/min (>60); Est Glom Filt Rate - Afr Amer 60 mL/min (>60); Estimated Creatinine Clearance 40.84 ml/min; Globulin 5.4 g/dL (2.2-4.2); Glucose 390 mg/dL (74-106); Potassium 3.8 mmol/L (3.5-5.1); Protein, Total 7.6 g/dL (6.4-8.2); Sodium Level 133 mmol/L (136-145)
[2021-06-26 08:48] LABS: Reactive Lymphocyte RARE
--- NOTE | 2021-06-26 10:06 | PN.HOSP_ITS ---
Subjective Subjective Patient seen and examined. She feels much better today. She was having a 2D echo at time of review. Her shortness of breath and generalised malaise is much better. She is still in afib but is rate controlled today. Review of systems otherwise negative. SHe is on 2L of oxygen by nasal canula. Objective Data Objective Data Vital Signs: Vital Signs Temp Pulse Resp BP Pulse Ox 96.9 F L 98 16 146/98 H 96 06/26/21 06:15 06/26/21 07:00 06/26/21 06:15 06/26/21 06:15 06/26/21 08:15 Oxygen Flow Rate (L/min) 2 Oxygen Delivery Method Room Air Weight: 232 lb 5.875 oz Body Mass Index (BMI) 39.9 Intake & Output: Intake and Output for Last 24 Hours 06/24/21 06/25/21 06/26/21 23:59 23:59 23:59 Intake Total 610 / 950 580 / 580 Balance 610 / 950 580 / 580 Lab / Micro Data Result Diagrams: 06/26/21 06:42 06/26/21 06:42 Labs: Laboratory Results - last 24 hr 06/25/21 10:37: WBC 3.6 L, RBC 4.49, Hgb 13.3, Hct 39.3, MCV 87.5, MCH 29.6, MCHC 33.8, RDW Std Deviation 42.6, RDW Coeff of Maritza 13.2, Plt Count 168, MPV 10.5, Immature Gran % (Auto) 0.600, Neut % (Auto) 69.8, Lymph % (Auto) 23.7, [place] % (Auto) 5.9, Eos % (Auto) 0.0, Baso % (Auto) 0.0, Absolute Neuts (auto) 2.5, Absolute Lymphs (auto) 0.84, Nucleated RBC % 0 06/25/21 10:37: Sodium 135 L, Potassium 3.7, Chloride 98, Carbon Dioxide 25.0, Anion Gap 12, BUN 18, Creatinine 1.03 H, Estim Creat Clear Calc 46.39, Est GFR (MDRD) Af Amer 69, Est GFR (MDRD) Non-Af 57 L, BUN/Creatinine Ratio 17.5, Glucose 323 H, Calcium 8.5, Troponin I High Sens 33 06/25/21 10:37: Lactic Acid 1.9 06/25/21 14:30: Total Bilirubin 0.40, Direct Bilirubin 0.28, AST 37, ALT 27, Alkaline Phosphatase 156 H, Lactate Dehydrogenase 308 H, Troponin I High Sens 38, C-React Prot Ext Range 62.80 H, Total Protein 7.6, Albumin 2.4 L, Globulin 5.2 H 06/25/21 14:30: Fibrinogen 631 H, D-Dimer Quant (PE/DVT) 0.87 H* 06/25/21 14:30: Alkaline Phosphatase 158 H 06/25/21 15:55: POC Glucose 292 H 06/25/21 17:18: Troponin I High Sens 43, TSH 0.36 06/25/21 20:13: POC Glucose 374 H 06/26/21 06:13: POC Glucose 372 H 06/26/21 06:42: WBC 3.5 L, RBC 4.53, Hgb 13.3, Hct 42.8, MCV 94.5 D, MCH 29.4, MCHC 31.1 L D, RDW Std Deviation 46.9 H, RDW Coeff of Maritza 13.5, Plt Count 183, MPV 10.7, Immature Gran % (Auto) 0.600, Neut % (Auto) 58.7, Lymph % (Auto) 29.4, [place] % (Auto) 10.1 H, Eos % (Auto) 0.0, Baso % (Auto) 1.2 H, Absolute Neuts (auto) 2.0, Absolute Lymphs (auto) 1.02, Nucleated RBC % 0, Reactive Lymphocytes RARE 06/26/21 06:42: Sodium 133 L, Potassium 3.8, Chloride 102, Carbon Dioxide 22.0, Anion Gap 9, BUN 34 H, Creatinine 1.17 H, Estim Creat Clear Calc 40.84, Est GFR (MDRD) Af Amer 60, Est GFR (MDRD) Non-Af 49 L, BUN/Creatinine Ratio 29.1 H, Glucose 390 H, Calcium 8.2 L, Total Bilirubin 0.40, AST 46 H, ALT 28, Alkaline Phosphatase 148 H, Total Protein 7.6, Albumin 2.2 L, Globulin 5.4 H, Albumin/Globulin Ratio 0.4 L Radiography Diagnostic Testing: Radiology Impression Chest X-Ray 06/25/21 10:54 IMPRESSION: New bilateral pulmonary infiltrates worse at the right lung base. Electronically Signed: Gabo Mercer MD at 11:12 EDT , Service support , Physical Exam Const alert, oriented x3, no apparent distress and well nourished General Appearance: cooperative Exam Limitations: no limitations HEENT normocephalic, head/scalp atraumatic, hearing grossly normal bilaterally and moist oral mucous membranes Head and Scalp: normocephalic Eyes PERRL, EOMs intact bilaterally and conjunctivae normal Neck no lymphadenopathy Resp Resp Narrative: mildly diminished breath sounds bibasally, no wheezes or crackles. On 2L of oxygen by nasal canula Cardio S1 normal heart sound, S2 normal heart sound and no murmurs Cardio Narrative: afib, rate controlled GI normal to inspection, nondistended, normoactive bowel sounds, soft to palpation, non-tender and non-distended Extremity normal to inspection, full ROM and no clubbing, cyanosis or edema Peripheral Pulses: Yes pulses 2+ throughout Skin no rashes or lesions noted Neuro oriented x3, CN's II-XII intact bilaterally and moves all extremities Sensorium / Orientation: awake and alert Psych affect normal Assessment & Plan Assessment/Plan (1) Paroxysmal atrial fibrillation with RVR: (2) COVID: PLAN: #Afib * now rate controlled * on metoprolol 50mg bid; didnt require initiation of any drip * on therapeutic lovenox. switch to eliquis today * 2D echo done, reading pending. * TSH not elevated and was 0.36 * #COVID 19 pneumonia * on decadron and remdesivir. * titrate oxygen to maintain sats >90% * breathing treatment with bronchodilators * #Type 2 diabetes mellitus * continue home lantus. ISS. Accuchecks ACHS * #CAD: on statin, aspirin and plavix, now on metoprolol DVT prophylaxis: on therapeutic lovenox. will switch to eliquis today COde status: full code. Charges/Coding Visit Charges Inpatient E&M: 77454 Subs Hosp L3
[2021-06-26] MEDS: Furosemide 40 MG Tablet PO ×2 (10:08→18:11)
[2021-06-26] MEDS: Ibuprofen 400 MG Tablet 800 MG PO ×2 (10:08→18:12)
[2021-06-26] MEDS: metFORMIN (XR) 500 MG Tablet PO ×2 (10:09→18:11)
[2021-06-26] MEDS: Aspirin E.C. 81 MG Tablet PO (10:09)
[2021-06-26] MEDS: Metoprolol Tartrate 25 MG Tablet PO ×2 (10:09→20:07)
[2021-06-26] MEDS: Clopidogrel Bisulfate 75 MG Tablet PO (10:09)
[2021-06-26] MEDS: Lisinopril 5 MG Tablet PO (10:09)
[2021-06-26] MEDS: FLUoxetine 20 MG Capsule 40 MG PO (10:09)
[2021-06-26] MEDS: dexAMETHasone 2 MG TABLET 6 MG PO (10:09)
[2021-06-26] MEDS: Enoxaparin 100 MG/ML Syringe SC (10:09)
[2021-06-26] MEDS: Menthol/Lanolin/Calamine/Znox 113 GM Tube 1 APPLIC TOPICAL ×4 (10:10→20:50)
[2021-06-26 11:51] LABS: Bedside Glucose 385 mg/dL (70-110)
--- NOTE | 2021-06-26 12:25 | CASEMGMT ---
JUANCARLOS HOFF called patient in room for initial transition planning/care coordination assessment. JUANCARLOS HOFF introduced self and role at [facility]. Patient is alert and oriented. Patient willing to participate in assessment and is able to answer all questions appropriately. Care providers, pharmacy, and demographics verified. Patient wishes to discharge home, will monitor for need for HHC and home oxygen pending course of treatment. Patient states she has no further needs or concerns at this time. CM to follow for discharge planning needs that may arise. PCP: Karli Specialists: Arjun hospice manager Preferred Pharmacy: [facility] Insurance: [facility] Prescription Benefit: none Living Will/HPOA: yes, daughter Aundrea Llanes LNOK: daughter Living Arrangements: Patient lives with daughter in a 2 story home with bed and bath on first floor. Patient states she is independent at home. Transportation: self/daughter DME/HHC: Patient states she has shower chair, raised toilet, cane, walker, rolllator, grab bars. Patient states she prefers [facility] for DME, will monitor for home oxygen Disposition Plan: Patient to discharge home with family support and follow-up plans in place. Will monitor for home oxygen. Nya JORDAN, RN, CM
[2021-06-26] MEDS: Acetaminophen 325 MG Tablet 650 MG PO (16:06)
[2021-06-26 16:16] LABS: Bedside Glucose 400 mg/dL (70-110)
--- NOTE | 2021-06-26 20:00 | NURSING ---
MUCH 1:1 SPENT W THE PT, ASSISTED HER UP TO THE RESTROOM FROM THE RECLINER, PT C/O SEVERE BUTTOCK/RECTAL PAIN AND BURNING. PT DID HAVE A BM, CRYING FROM ALL THE PAIN. THADDEUS CARE GIVEN, ASSISTED THE PT INTO BED, ADDITIONAL THADDEUS CARE GIVEN, RECTAL/THADDEUS AREA BRIGHT RED, BLEEDING. DUODERM PLACED AROUND ANAL AREA, CALMOSEPTINE ALSO USED ON THE CLEFT. PT THEN TURNED, THADDEUS AND VAGINAL AREA CLEANED, ANGELA PLACED D/T THE OPEN AREAS ON THE THADDEUS AREA AND BUTTOCKS. PREVIOUS PUREWICK LEAKED AND CAUSED MORE IRRITATION. PTS MOUTH WITH BLOODY DRAINAGE ON THE CORNERS, MOUTH AND LIPS CLEANED. ORAL AREA RED, WHITE COATING TO THR TONGUE AND VERY PAINFUL. DR FUENTES NOTIFIED. [place] SWISH/SWALLOW ORDERED. .
[2021-06-26] MEDS: APIXABAN 5 MG TABLET PO (20:08)
[2021-06-26] MEDS: Atorvastatin Calcium 10 MG Tablet PO (20:08)
[2021-06-26 20:11] LABS: Bedside Glucose 359 mg/dL (70-110)
[2021-06-26] MEDS: traMADol 50 MG Tablet PO (21:59)
[2021-06-26] MEDS: Ondansetron 4 MG/2 ML Vial IV (22:01)
[2021-06-26] MEDS: NYSTATIN 500,000 UNIT/5 ML UDC 500000 UNIT PO (22:01)
[2021-06-27] VITALS (11 sets, daily range): BP systolic 112–145; BP diastolic 57–72; PULSE 89–100; RESP 16–18; TEMP 35.8–36.6; O2SAT 92–96
[2021-06-27] MEDS: Acetaminophen 325 MG Tablet 650 MG PO (03:28)
[2021-06-27] MEDS: Nystatin Powder 15gm Bottle 1 APPLIC TOPICAL ×3 (03:32→22:22)
[2021-06-27] MEDS: Ondansetron 4 MG/2 ML Vial IV (06:09)
[2021-06-27] MEDS: 0.9% Saline Lock 10 ML Syringe IV ×2 (06:09→10:32)
[2021-06-27] MEDS: Insulin Lispro 100 UNIT/ML INSULN.PEN SC ×4 (06:10→22:22)
[2021-06-27 06:21] LABS: Bedside Glucose 219 mg/dL (70-110)
[2021-06-27 06:36] LABS: Absolute Lymphocyte Count 1.43 X10^3/uL (0.83-4.51); Basophil# 0.03 X10^3/uL; Basophil% 0.5 % (0-1); Hematocrit 39.9 % (37-47); Hemoglobin 13.2 g/dL (12.0-15.0); Lymphocyte # 1.43 X10^3/ul (0.83-4.51); Lymphocyte % 23.9 % (19-41); Mean Corp Hgb Conc 33.1 g/dL (32-36); Mean Corpuscular Hgb 29.1 pg (27.0-32.0); Mean Corpuscular Volume 87.9 fL (81-99); Mean Platelet Vol. 10.5 fl (6.2-12.0); Monocyte% 8.3 % (0-10); NRBC Flagged by Analyzer 0 % (0-5); Neutrophil # 3.98 X10^3/uL (2.7-7.7); Neutrophil % 66.5 % (47-70); POSITIVE MORPHOLOGY YES; Platelet Count 232 K/mm3 (150-450); RBC Distribution Width CV 13.1 % (11.6-14.6); RBC Distribution Width SD 42.3 fl (35.1-43.9); Red Blood Count 4.54 M/mm3 (4.2-5.4)
[2021-06-27 06:57] LABS: Differential Indicated SCAN CRITERIA MET
[2021-06-27 07:23] LABS: Anion Gap 9 (5-15); BUN 56 mg/dL (7-18); BUN/Creat Ratio 44.4 RATIO (10-20); Calcium,Total 8.4 mg/dL (8.5-10.1); Chloride 105 mmol/L (98-107); Creatinine, Serum 1.26 mg/dL (0.55-1.02); EST Glomerular Filtration Rate 45 mL/min (>60); Est Glom Filt Rate - Afr Amer 55 mL/min (>60); Estimated Creatinine Clearance 37.93 ml/min; Glucose 243 mg/dL (74-106); Potassium 3.9 mmol/L (3.5-5.1); Sodium Level 137 mmol/L (136-145)
[2021-06-27 07:27] LABS: Atypical Lymphocyte 1+ %
[2021-06-27] MEDS: dexAMETHasone 2 MG TABLET 6 MG PO (10:33)
[2021-06-27] MEDS: APIXABAN 5 MG TABLET PO ×2 (10:33→22:22)
[2021-06-27] MEDS: FLUoxetine 20 MG Capsule 40 MG PO (10:34)
[2021-06-27] MEDS: Clopidogrel Bisulfate 75 MG Tablet PO (10:34)
[2021-06-27] MEDS: Ibuprofen 400 MG Tablet 800 MG PO (10:34)
[2021-06-27] MEDS: Furosemide 40 MG Tablet PO ×2 (10:34→16:13)
[2021-06-27] MEDS: Menthol/Lanolin/Calamine/Znox 113 GM Tube 1 APPLIC TOPICAL ×4 (10:35→22:22)
[2021-06-27] MEDS: Aspirin E.C. 81 MG Tablet PO (10:35)
[2021-06-27] MEDS: Metoprolol Tartrate 25 MG Tablet PO ×2 (10:35→22:22)
[2021-06-27] MEDS: metFORMIN (XR) 500 MG Tablet PO ×2 (10:35→16:13)
[2021-06-27] MEDS: Lisinopril 5 MG Tablet PO (10:36)
[2021-06-27] MEDS: NYSTATIN 500,000 UNIT/5 ML UDC 500000 UNIT PO ×4 (10:36→22:22)
[2021-06-27 11:01] LABS: Bedside Glucose 269 mg/dL (70-110)
--- NOTE | 2021-06-27 11:21 | PN.HOSP_ITS ---
Subjective Subjective Patient seen and examined. She still feels a bit weak but says she is feeling better than when she came in. She is concerned about the excoriation she has on her bottom which was present since before admission. She does not feel short of breath, and is currently on 3 L of oxygen. Review of systems otherwise neg ative. Objective Data Objective Data Vital Signs: Vital Signs Temp Pulse Resp BP Pulse Ox 97.9 F 91 18 145/72 H 92 06/27/21 10:37 06/27/21 11:00 06/27/21 10:37 06/27/21 10:37 06/27/21 10:37 Oxygen Flow Rate (L/min) 3 Oxygen Delivery Method Nasal Cannula Weight: 232 lb 5.875 oz Body Mass Index (BMI) 39.9 Intake & Output: Intake and Output for Last 24 Hours 06/25/21 06/26/21 06/27/21 23:59 23:59 23:59 Intake Total 610 / 950 1550 / 1550 240 / 240 Output Total 250 / 250 Balance 610 / 950 1550 / 1550 -10 / -10 Lab / Micro Data Result Diagrams: 06/27/21 06:10 06/27/21 06:10 Labs: Laboratory Results - last 24 hr 06/26/21 11:45: POC Glucose 385 H 06/26/21 16:02: POC Glucose 400 H 06/26/21 20:06: POC Glucose 359 H 06/27/21 06:08: POC Glucose 219 H 06/27/21 06:10: WBC 6.0, RBC 4.54, Hgb 13.2, Hct 39.9, MCV 87.9 D, MCH 29.1, MCHC 33.1 D, RDW Std Deviation 42.3, RDW Coeff of Maritza 13.1, Plt Count 232, MPV 10.5, Immature Gran % (Auto) 0.800, Neut % (Auto) 66.5, Lymph % (Auto) 23.9, [place] % (Auto) 8.3, Eos % (Auto) 0.0, Baso % (Auto) 0.5, Absolute Neuts (auto) 4.0, Absolute Lymphs (auto) 1.43, Nucleated RBC % 0, Atypical Lymphocytes 1+ 06/27/21 06:10: Sodium 137, Potassium 3.9, Chloride 105, Carbon Dioxide 23.0, Anion Gap 9, BUN 56 H, Creatinine 1.26 H, Estim Creat Clear Calc 37.93, Est GFR (MDRD) Af Amer 55 L, Est GFR (MDRD) Non-Af 45 L, BUN/Creatinine Ratio 44.4 H, Glucose 243 H, Calcium 8.4 L 06/27/21 10:46: POC Glucose 269 H Physical Exam Const alert, oriented x3, no apparent distress and well nourished General Appearance: cooperative Orientation / Consciousness: lethargic Exam Limitations: no limitations HEENT normocephalic, head/scalp atraumatic, hearing grossly normal bilaterally and moist oral mucous membranes Head and Scalp: normocephalic Eyes PERRL, EOMs intact bilaterally and conjunctivae normal Neck no lymphadenopathy Resp Resp Narrative: mildly diminished breath sounds bibasally, no wheezes or crackles. On 3L of oxygen by nasal canula Cardio S1 normal heart sound, S2 normal heart sound and no murmurs Cardio Narrative: afib, rate controlled GI normal to inspection, nondistended, normoactive bowel sounds, soft to palpation, non-tender and non-distended Extremity normal to inspection, full ROM and no clubbing, cyanosis or edema Peripheral Pulses: Yes pulses 2+ throughout Skin no rashes or lesions noted Neuro oriented x3, CN's II-XII intact bilaterally and moves all extremities Sensorium / Orientation: awake and alert Psych affect normal Assessment & Plan Assessment/Plan (1) Paroxysmal atrial fibrillation with RVR: (2) COVID: PLAN: #Afib * new onset. was in RVR on admission, but this has now resolved. * didnt require initiation of cardizem drip * on PO metoprolol 50mg bid * on eliquis 5mg bid for thromboprophylaxis. * TSH was WNL * 2D echo: EF of 55% with normal LV systolic function and size. Normal mitral and tricuspid as well as aortic vlves; pulmonic valve not well visualised * #COVID 19 pneumonia * on decadron and remdesivir. * titrate oxygen to maintain sats >90% * breathing treatment with bronchodilators * #Type 2 diabetes mellitus * on lantus 31 units qhs. ISS. Accuchecks ACHS * #CAD: on statin, aspirin and plavix as well as atenolol DVT prophylaxis: on therapeutic lovenox Code status: full code. * Charges/Coding Visit Charges Inpatient E&M: 21521 Subs Hosp L2
--- NOTE | 2021-06-27 14:21 | CASEMGMT ---
Physician indicated patient wants to go to TCU at discharge. Patient has COVID and is still in precautions therefore, she would not be able to go to TCU. Also, therapy did not recommend further therapy. GERMANIA spoke with patient. Introduced self. SW let her know she would not be able to go to TCU since she has COVID. SW offered to give her a list of other facilities in the area, but she declined stating she does not want to go to any other facilities. She then expressed she is concerned about keeping her bottom clean and cared for as she is very sore in that area. She wants to keep on top of her wounds. SW told her about home health, but made sure she knows that home health will not be out every day to see her. She verbalized understanding. She was wondering if they could come out more often. GERMANIA told her SW is not sure, but when they do their initial assessment they would determine how often they can come out. Insurance also plays a role in this. GERMANIA told her if she is that worried about it she should maybe consider going to another care home facility. She said she is not going anywhere else. She asked if the hospital has home health and SW told her they do. She said she wants the hospital's home health. GERMANIA told her SW will let the RN CM know and we will continue to follow. GERMANIA notified RN KAVYA Hicks about patient wanting [facility]. Marizol PIERCE
--- NOTE | 2021-06-27 14:24 | CASEMGMT ---
Addendum entered by Nya Davis 06/28/21 10:35: 06/27/21 1545 Call back from Latanya at [facility] and she states they can do weekend start of care. CM to follow for O2. Ofelia BAUER CM Original Note: Per Marizol SOLO, pt would like to go home with [facility] and referral to Latanya at [facility]. CM to follow. Ofelia BAUER CM
[2021-06-27 16:26] LABS: Bedside Glucose 332 mg/dL (70-110)
[2021-06-27] MEDS: Atorvastatin Calcium 10 MG Tablet PO (22:22)
[2021-06-27 22:30] LABS: Bedside Glucose 342 mg/dL (70-110)
[2021-06-28] VITALS (14 sets, daily range): BP systolic 103–141; BP diastolic 43–86; PULSE 91–138; RESP 16–22; TEMP 36.2–36.6; O2SAT 91–96
[2021-06-28] MEDS: Insulin Lispro 100 UNIT/ML INSULN.PEN SC ×4 (06:29→21:06)
[2021-06-28] MEDS: Nystatin Powder 15gm Bottle 1 APPLIC TOPICAL ×3 (06:30→21:05)
[2021-06-28 06:36] LABS: Bedside Glucose 274 mg/dL (70-110)
[2021-06-28 06:47] LABS: Absolute Lymphocyte Count 1.32 X10^3/uL (0.83-4.51); Absolute Neutrophil Count 4.4 X10^3/uL (2.0-7.7); Basophil# 0.01 X10^3/uL; Basophil% 0.2 % (0-1); Hematocrit 43.8 % (37-47); Hemoglobin 14.5 g/dL (12.0-15.0); Lymphocyte # 1.32 X10^3/ul (0.83-4.51); Lymphocyte % 20.6 % (19-41); Mean Corp Hgb Conc 33.1 g/dL (32-36); Mean Corpuscular Volume 87.6 fL (81-99); Mean Platelet Vol. 10.6 fl (6.2-12.0); Monocyte# 0.68 X10^3/uL; Monocyte% 10.6 % (0-10); NRBC Flagged by Analyzer 0 % (0-5); Neutrophil # 4.35 X10^3/uL (2.7-7.7); Neutrophil % 67.8 % (47-70); POSITIVE MORPHOLOGY YES; Platelet Count 310 K/mm3 (150-450); RBC Distribution Width CV 13.3 % (11.6-14.6); RBC Distribution Width SD 42.7 fl (35.1-43.9); White Blood Count 6.4 K/mm3 (4.4-11.0)
[2021-06-28 06:53] LABS: Differential Indicated SCAN CRITERIA MET
[2021-06-28 07:09] LABS: Anion Gap 11 (5-15); BUN 54 mg/dL (7-18); BUN/Creat Ratio 48.6 RATIO (10-20); Calcium,Total 8.9 mg/dL (8.5-10.1); Chloride 101 mmol/L (98-107); Creatinine, Serum 1.11 mg/dL (0.55-1.02); EST Glomerular Filtration Rate 52 mL/min (>60); Est Glom Filt Rate - Afr Amer 63 mL/min (>60); Estimated Creatinine Clearance 43.05 ml/min; Glucose 299 mg/dL (74-106); Potassium 3.8 mmol/L (3.5-5.1); Sodium Level 137 mmol/L (136-145)
[2021-06-28] MEDS: APIXABAN 5 MG TABLET PO ×2 (09:13→21:06)
[2021-06-28] MEDS: Furosemide 40 MG Tablet PO ×2 (09:13→16:59)
[2021-06-28] MEDS: NYSTATIN 500,000 UNIT/5 ML UDC 500000 UNIT PO ×4 (09:13→21:06)
[2021-06-28] MEDS: FLUoxetine 20 MG Capsule 40 MG PO (09:13)
[2021-06-28] MEDS: Clopidogrel Bisulfate 75 MG Tablet PO (09:13)
[2021-06-28] MEDS: traMADol 50 MG Tablet PO ×2 (09:13→21:06)
[2021-06-28] MEDS: Metoprolol Tartrate 25 MG Tablet PO ×2 (09:14→21:06)
[2021-06-28] MEDS: Menthol/Lanolin/Calamine/Znox 113 GM Tube 1 APPLIC TOPICAL ×4 (09:14→21:05)
[2021-06-28] MEDS: dexAMETHasone 2 MG TABLET 6 MG PO (09:14)
[2021-06-28] MEDS: Aspirin E.C. 81 MG Tablet PO (09:14)
[2021-06-28] MEDS: metFORMIN (XR) 500 MG Tablet PO ×2 (09:14→16:59)
[2021-06-28] MEDS: 0.9% Saline Lock 10 ML Syringe IV (09:38)
--- NOTE | 2021-06-28 11:12 | CASEMGMT ---
RN told SW that patient is willing to consider other facilities. Therapy will have to see patient again as Thursday PT was not recommending further therapy and she was not seen yesterday. SW will also have to find out when patient was diagnosed. SW spoke with patient. She is not sure when she was tested for COVID. The ED Dr dee dee states she was positive on the Jun. She said she would be agreeable to [facility]. GERMANIA told her that they are normally requiring that patient's be 14 days out from positive COVID, but SW can try. GERMANIA told her some of the other facilities that are taking patient's 10 days out are: [facility], [facility], [facility], and [facility]. She said she doesn't want to go to any of those. SW told her that if [facility] cannot take her she may have to consider one of these other places. SW told her SW will let her know. GERMANIA called [facility] and spoke with Monica. GERMANIA explained situation. She said [facility] is full right now until the . GERMANIA asked about [facility] as they are related to [facility]. She was going to check with their COVID person and get back to GERMANIA. Monica then called SW back and said that their policy changed to 10 days now not 14 days. However, she asked if another COVID test could be done. SW told her SW could ask about this. GERMANIA also asked if she still tests positive would they be able to accept her. She said no, they likely would not be able to take her. GERMANIA asked physician and she did agree to another test. medical tech requested test. SW will await test results. GERMANIA will also get in contact with patient again since [facility] is full. Marizol Randall MSW STAN
[2021-06-28 12:16] LABS: Bedside Glucose 328 mg/dL (70-110)
--- NOTE | 2021-06-28 13:04 | NURSING ---
This RN taking over care at this time
--- NOTE | 2021-06-28 14:23 | CASEMGMT ---
SW called patient and let her know [facility]. She said she is getting another COVID test today and if it is negative she is hoping to go to TCU. SW told her SW is not sure that is accurate and SW will have to check. Patient was resistant to picking another facility. SW spoke with Mireya in TCU and she said they go from the patient's first test. She would have to be 21 days out from her first COVID test which was the 12th. Therefore TCU is not an option. SW noted patient's COVID is negative. SW called patient and let her know about TCU. SW went over the other 4 facilities that take COVID patients and their star ratings. Patient agreed to [facility]. She asked SW to call her daughter and tell her what is going on as well. SW called patient's daughter Aundrea and explained everything. She agrees patient should go to a nursing facility. SW went over the options with her and she agrees with [facility]. SW told her if SW is able to secure a place she will likely go tomorrow. SW told her SW will keep her updated. GERMANIA called [facility] with referral and also faxed information. Await their response. Marizol Randall DIETITIAN TEACHER STAN
--- NOTE | 2021-06-28 14:27 | PN.HOSP_ITS ---
Subjective Subjective Patient seen and examined. She had no active complaints today and felt well. Review systems otherwise negative. Patient is on 3 L of oxygen today. Patient wanted to go to transitional care unit but they are not taking patients with Covid. Patient is now open to selecting another chcf facility. She has otherwise remained hemodynamically stable. Objective Data Objective Data Vital Signs: Vital Signs Temp Pulse Resp BP Pulse Ox 97.1 F L 91 22 H 103/43 L 93 06/28/21 09:12 06/28/21 11:00 06/28/21 09:12 06/28/21 09:12 06/28/21 13:12 Oxygen Flow Rate (L/min) 4 Oxygen Delivery Method Nasal Cannula Weight: 232 lb 5.875 oz Body Mass Index (BMI) 39.9 Intake & Output: Intake and Output for Last 24 Hours 06/26/21 06/27/21 06/28/21 23:59 23:59 23:59 Intake Total 1550 / 1550 1330 / 1450 830 / 830 Output Total 925 / 1525 2450 / 2450 Balance 1550 / 1550 405 / -75 -1620 / -1620 Lab / Micro Data Result Diagrams: 06/28/21 05:05 06/28/21 05:05 Labs: Laboratory Results - last 24 hr 06/27/21 16:12: POC Glucose 332 H 06/27/21 22:21: POC Glucose 342 H 06/28/21 05:05: WBC 6.4, RBC 5.00, Hgb 14.5, Hct 43.8, MCV 87.6, MCH 29.0, MCHC 33.1, RDW Std Deviation 42.7, RDW Coeff of Maritza 13.3, Plt Count 310, MPV 10.6, Immature Gran % (Auto) 0.800, Neut % (Auto) 67.8, Lymph % (Auto) 20.6, [place] % (Auto) 10.6 H, Eos % (Auto) 0.0, Baso % (Auto) 0.2, Absolute Neuts (auto) 4.4, Absolute Lymphs (auto) 1.32, Nucleated RBC % 0 06/28/21 05:05: Sodium 137, Potassium 3.8, Chloride 101, Carbon Dioxide 25.0, Anion Gap 11, BUN 54 H, Creatinine 1.11 H, Estim Creat Clear Calc 43.05, Est GFR (MDRD) Af Amer 63, Est GFR (MDRD) Non-Af 52 L, BUN/Creatinine Ratio 48.6 H, Glucose 299 H, Calcium 8.9 06/28/21 06:29: POC Glucose 274 H 06/28/21 12:07: POC Glucose 328 H Micro: Microbiology 06/28/21 12:25 Nasal Secretion SARS-CoV-2 Antigen (Rapid) - Final Physical Exam Const alert, oriented x3, no apparent distress and well nourished General Appearance: cooperative Orientation / Consciousness: lethargic Exam Limitations: no limitations HEENT normocephalic, head/scalp atraumatic, hearing grossly normal bilaterally and moist oral mucous membranes Head and Scalp: normocephalic Eyes PERRL, EOMs intact bilaterally and conjunctivae normal Neck no lymphadenopathy Resp normal respiratory effort, no retractions, no use of accessory muscles and clear to auscultation bilaterally Resp Narrative: mildly diminished breath sounds bibasally, no wheezes or crackles. On 3L of oxygen by nasal canula Cardio S1 normal heart sound, S2 normal heart sound and no murmurs Cardio Narrative: afib, rate controlled GI normal to inspection, nondistended, normoactive bowel sounds, soft to palpation, non-tender and non-distended Extremity normal to inspection, full ROM and no clubbing, cyanosis or edema Skin no rashes or lesions noted Neuro oriented x3, CN's II-XII intact bilaterally and moves all extremities Sensorium / Orientation: awake and alert Psych affect normal Assessment & Plan Assessment/Plan (1) Paroxysmal atrial fibrillation with RVR: (2) COVID: PLAN: #Afib * on PO metoprolol 50mg bid * on eliquis 5mg bid for thromboprophylaxis. * TSH was WNL * 2D echo: EF of 55% with normal LV systolic function and size. Normal mitral and tricuspid as well as aortic vlves; pulmonic valve not well visualised * #Acute hypoxic respiratory failure due to COVID 19 infection * on 3L of oxygen today, required up to 4L today after she became more hypoxic with ambulation * on decadron and remdesivir. * titrate oxygen to maintain sats >90% * breathing ttreatment with bronchodilators * #COVID 19 pneumonia * on decadron and remdesivir. * titrate oxygen to maintain sats >90% * breathing treatment with bronchodilators * #Type 2 diabetes mellitus * on lantus 31 units qhs. ISS. Accuchecks ACHS * #CAD: on statin, aspirin and plavix as well as atenolol DVT prophylaxis: on eliquis Code status: full code. * Disposition: awaiting placement Charges/Coding Visit Charges Inpatient E&M: 11708 Subs Hosp L2
--- NOTE | 2021-06-28 16:52 | CASEMGMT ---
[facility] is able [facility] accept patient tomorrow. Ivy asked if GERMANIA could get a copy of her positive COVID test or at least get a verbal that she had it on the . GERMANIA did call [facility] and spoke with a nurse named Brenda. She confirmed patient tested positive on the and she also faxed the results to GERMANIA. GERMANIA called Ivy regarding this and also faxed the test to [facility]. GERMANIA called patient's daughter and let her know as well as answered her questions. GERMANIA also gave her the phone number for [facility]. Both patient and her daughter were advised of the 10-14 day quarantine at the half-way and no visitation at that time. GERMANIA did try to call patient a couple of times, but she is sleeping. RN said she will let patient know that [facility] can take her and that GERMANIA notified her daughter. Plan: d/c to [facility] under skilled level of care on a convalescent stay. [facility] will transport. Marizol PIERCE
[2021-06-28 17:30] LABS: Probe Check PASS; Specimen Processing Control PASS
[2021-06-28 17:30] LABS: Bedside Glucose 463 mg/dL (70-110)
[2021-06-28] MEDS: Atorvastatin Calcium 10 MG Tablet PO (21:06)
[2021-06-28 21:16] LABS: Bedside Glucose 337 mg/dL (70-110)
[2021-06-29] VITALS (13 sets, daily range): BP systolic 122–155; BP diastolic 61–88; PULSE 57–108; RESP 14–20; TEMP 36.1–36.8; O2SAT 91–100
[2021-06-29] MEDS: Nystatin Powder 15gm Bottle 1 APPLIC TOPICAL ×3 (06:22→21:39)
[2021-06-29] MEDS: Insulin Lispro 100 UNIT/ML INSULN.PEN SC ×3 (06:22→21:53)
[2021-06-29 06:40] LABS: Bedside Glucose 235 mg/dL (70-110)
[2021-06-29 06:49] LABS: Absolute Lymphocyte Count 1.61 X10^3/uL (0.83-4.51); Absolute Neutrophil Count 8.7 X10^3/uL (2.0-7.7); Basophil# 0.02 X10^3/uL; Basophil% 0.2 % (0-1); Hemoglobin 15.4 g/dL (12.0-15.0); Lymphocyte # 1.61 X10^3/ul (0.83-4.51); Mean Corp Hgb Conc 33.5 g/dL (32-36); Mean Corpuscular Hgb 29.4 pg (27.0-32.0); Mean Corpuscular Volume 87.8 fL (81-99); Mean Platelet Vol. 10.3 fl (6.2-12.0); Monocyte# 1.04 X10^3/uL; Monocyte% 9.1 % (0-10); NRBC Flagged by Analyzer 0 % (0-5); Neutrophil # 8.73 X10^3/uL (2.7-7.7); Neutrophil % 76.1 % (47-70); POSITIVE MORPHOLOGY YES; Platelet Count 365 K/mm3 (150-450); RBC Distribution Width CV 13.2 % (11.6-14.6); RBC Distribution Width SD 42.7 fl (35.1-43.9); Red Blood Count 5.24 M/mm3 (4.2-5.4); White Blood Count 11.5 K/mm3 (4.4-11.0)
[2021-06-29 06:58] LABS: Differential Indicated SCAN CRITERIA MET
[2021-06-29 07:12] LABS: Anion Gap 10 (5-15); BUN 50 mg/dL (7-18); BUN/Creat Ratio 49.5 RATIO (10-20); Calcium,Total 8.9 mg/dL (8.5-10.1); Chloride 101 mmol/L (98-107); Creatinine, Serum 1.01 mg/dL (0.55-1.02); EST Glomerular Filtration Rate 58 mL/min (>60); Est Glom Filt Rate - Afr Amer 71 mL/min (>60); Estimated Creatinine Clearance 47.31 ml/min; Glucose 236 mg/dL (74-106); Potassium 3.5 mmol/L (3.5-5.1); Sodium Level 139 mmol/L (136-145)
[2021-06-29 07:18] LABS: Differential Comment SCANNED
[2021-06-29] MEDS: Ondansetron 4 MG/2 ML Vial IV (10:04)
[2021-06-29] MEDS: 0.9% Saline Lock 10 ML Syringe IV (10:04)
[2021-06-29] MEDS: Menthol/Lanolin/Calamine/Znox 113 GM Tube 1 APPLIC TOPICAL ×4 (10:12→21:38)
--- NOTE | 2021-06-29 11:24 | PCM.DC.SUM ---
Providers Date of Admission: 06/25/21 Primary Care Physician: Dr. Nena Calvillo MD Reason For Visit: A FIB WITH RVR COVID 19 PNEUMONIA Diagnosis Discharge Diagnosis (1) Paroxysmal atrial fibrillation with RVR: Status: Acute Code(s): I48.0 - Paroxysmal atrial fibrillation (2) COVID: Status: Acute Code(s): U07.1 - COVID-19 Medications at Discharge Home Medications fluoxetine 40 mg PO DAILY 12/27/18 insulin glargine 31 unit SUBCUT QHS 12/27/18 lisinopril 5 mg PO DAILY 12/27/18 furosemide 40 mg tablet 40 mg PO BID tab 05/04/19 clopidogrel 75 mg PO DAILY 06/25/21 metformin 500 mg PO BIDCM 06/25/21 rosuvastatin 5 mg PO QHS 06/25/21 apixaban [Eliquis] 5 mg PO BID #60 tab 06/29/21 dexamethasone 6 mg PO DAILY #5 tab 06/29/21 metoprolol tartrate 50 mg PO BID #60 tab 06/29/21 Hospital Course Operations None Procedures 2-D Echocardiogram Summary of Care Provided Minutes Spent on Discharge: 45 Hospital Course: ELISABET VAUGHAN, is a 66 F with a PMH as outlined who presents via the ED on 06/25/2021 with a complaint of worsening shortness of breath and myalgia and generalised malaise. She was diagnosed with covid in the outpatient setting about 10 days ago. Her symptoms have gradually worsened. She also denies any chest pain but does admit to nausea, but no vomiting. Review of systems is otherwise negative. Vitals showed temp of 97F, WI of 134, BP of 122.84, RR of 18 and she was saturating at 95% on room air. EKG showed afib with RVR. She has no history of afib. CBC was unremarkable, and BMP showed Cr of 1.03 and glucose of 323. Initial troponin was 33. She was given a dose of metoprolol IV. She is was admitted to be managed for afib with RVR and acute hypoxic respiratory insufficiency due to covid 19 pneumonia. She was started on remdesivir and decadron. SHe didnt require initiation of a cardizem or amiodarone drip and was started on PO metoprolol 50mg bid, which controlled her HR adequately. 2D echo showed EF of 55% with normal LV size and systolic function. Patient remained on 2-3L during admission. She did start feeling better, and vitals otherwise remained stable. She was discharged to a SNF o/a of debility due to coVid in 06/29/2021. SHe is to remain in self isolation till 07/05/2021, which will be 20 days since her symptoms started. 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 She was also discharged on PO metoprolol as well as PO eliquis. Patient seen and examined. SHe was feeling better and had no acute complaints. She remains on 3 L of oxygen and review of systems otherwise negative. Labs and vitals reviewed. Home medication reviewed and reconciled. Physical Exam Const alert, oriented x3, no apparent distress and well nourished General Appearance: cooperative Exam Limitations: no limitations HEENT normocephalic, head/scalp atraumatic, hearing grossly normal bilaterally and moist oral mucous membranes Eyes PERRL, EOMs intact bilaterally and conjunctivae normal Neck no lymphadenopathy Resp normal respiratory effort, no retractions, no use of accessory muscles and clear to auscultation bilaterally Resp Narrative: mildly diminished breath sounds bibasally, no wheezes or crackles. On 3L of oxygen by nasal canula Cardio S1 normal heart sound, S2 normal heart sound and no murmurs Cardio Narrative: afib, rate controlled GI normal to inspection, nondistended, normoactive bowel sounds, soft to palpation, non-tender and non-distended Extremity normal to inspection, full ROM and no clubbing, cyanosis or edema Skin no rashes or lesions noted Neuro oriented x3, CN's II-XII intact bilaterally and moves all extremities Sensorium / Orientation: awake and alert Psych affect normal Weight / BMI Weight Weight: 232 lb 5.875 oz Body Mass Index (BMI) 39.9 ABG / Lab / Microbiology Data Result Diagrams: 06/29/21 05:50 06/29/21 05:50 Laboratory: Laboratory Results - last 24 hr 06/28/21 12:07: POC Glucose 328 H 06/28/21 15:54: COVID-19 (GERALDO) Positive 06/28/21 16:59: POC Glucose 463 H* 06/28/21 21:02: POC Glucose 337 H 06/29/21 05:50: WBC 11.5 H, RBC 5.24, Hgb 15.4 H, Hct 46.0, MCV 87.8, MCH 29.4, MCHC 33.5, RDW Std Deviation 42.7, RDW Coeff of Maritza 13.2, Plt Count 365, MPV 10.3, Immature Gran % (Auto) 0.600, Neut % (Auto) 76.1 H, Lymph % (Auto) 14.0 L, [place] % (Auto) 9.1, Eos % (Auto) 0.0, Baso % (Auto) 0.2, Absolute Neuts (auto) 8.7 H, Absolute Lymphs (auto) 1.61, Nucleated RBC % 0, Differential Comment SCANNED 06/29/21 05:50: Sodium 139, Potassium 3.5, Chloride 101, Carbon Dioxide 28.0, Anion Gap 10, BUN 50 H, Creatinine 1.01, Estim Creat Clear Calc 47.31, Est GFR (MDRD) Af Amer 71, Est GFR (MDRD) Non-Af 58 L, BUN/Creatinine Ratio 49.5 H, Glucose 236 H, Calcium 8.9 06/29/21 06:21: POC Glucose 235 H Microbiology: Microbiology 06/28/21 12:25 Nasal Secretion SARS-CoV-2 Antigen (Rapid) - Final D/C Instructions Discharge Diet: Low fat / Low cholesterol Discharge Activity: Return to Normal Activity Weight Bearing Status: Weight bearing as tolerated Call your doctor if you observe: Fever of 101 or Higher, Shortness of breath, Dizziness, Swelling in the ankles and Increased palpitations (irregular heartbeat) Meaningful Use Info Meaningful Use Diagnoses (Choose all that apply): None applicable Discharge Plan Admission Admit Date/Time: 06/25/21 12:23 Primary Reason for Your Visit: afib with RVR, COVID 19 pneumonia Attending Provider: Inga Flynn Primary Care Provider: Nena Calvillo Instructions Patient Instructions: Coronavirus Disease 2019 (COVID-19): Overview, Understanding Atrial Fibrillation Additional Instructions / Restrictions: to remain in self isolation till 07/05/2021. Discharge Orders/Prescriptions Prescriptions: New metoprolol tartrate 50 mg tablet 50 mg PO BID Qty: 60 RF: 1 dexamethasone 6 mg tablet 6 mg PO DAILY Qty: 5 RF: 0 Eliquis 5 mg tablet 5 mg PO BID Qty: 60 RF: 1 Continued furosemide 40 mg tablet 40 mg PO BID RF: 0 insulin glargine 100 UNIT/ML solution 31 unit subcut QHS RF: 0 lisinopril 5 MG tablet 5 mg PO DAILY RF: 0 fluoxetine 40 MG capsule 40 mg PO DAILY RF: 0 metformin 500 mg tablet extended release 24 hr 500 mg PO BIDCM RF: 0 rosuvastatin 5 mg tablet 5 mg PO QHS RF: 0 clopidogrel 75 MG tablet 75 mg PO DAILY RF: 0 Discontinued aspirin 81 MG tablet,delayed release (DR/EC) 81 mg PO DAILY RF: 0 ibuprofen 800 mg tablet 800 mg PO Q8H PRN (Reason: Pain) RF: 0 atenolol 50 mg tablet 50 mg PO BID RF: 0 Referrals / Follow Up: Nena Calvillo MD [Primary Care Provider] - Within 2 Weeks Wisam Díaz MD [STAFF PHYSICIAN] - Within 2 Weeks Disposition Disposition (needs filled in before D/C Order can be placed): Long-Term Facility Charges/Coding Visit Charges Inpatient E&M: 41209 Disch Hosp
--- NOTE | 2021-06-29 11:50 | PCM.TXEXTCAR ---
Diet 06/25/21 13:49 Diet: Cardiac: Calorie-Controlled Food consistency:: Regular Liquid Consistency:: Regular/Thin Type of Dietary Supplement:: Glucerna Shake Diet Comments: 120mL w/ meals How many daily calories?: 1800 calorie Wound(s) groin/joe areas/inner legs/labia: Wound Type: incontinence dermatitis coccyx/gluteal fold/inner buttocks: Wound Type: incontinence dermatitis Problem/Diagnosis (1) Paroxysmal atrial fibrillation with RVR: Status: Acute (2) COVID: Status: Acute Allergies/Procedures Done in Hospital Allergies Sulfa (Sulfonamide Antibiotics) Allergy (Verified 11/17/19 10:11) Hives Type of Care/Length of Stay Estimated LOS: Convalescent Care Less Than 30 days Type of Care Needed: Skilled Rehab Potential: Fair Prognosis: Fair Additional Orders/Day of Discharge Day of Discharge: 06/29/21 Dietary and Speech Recommendations Dietitian Recommendations/Changes: Continue Cardiac/1800 calorie-controlled diet as tolerated; continue 120mL glucerna TID w/ meal trays. Discharge Plan Admission Admit Date/Time: 06/25/21 12:23 Primary Reason for Your Visit: afib with RVR, COVID 19 pneumonia Attending Provider: Inga Flynn Primary Care Provider: Nena Calvillo Instructions Patient Instructions: Coronavirus Disease 2019 (COVID-19): Overview, Understanding Atrial Fibrillation Additional Instructions / Restrictions: to remain in self isolation till 07/05/2021. Discharge Orders/Prescriptions Prescriptions: New metoprolol tartrate 50 mg tablet 50 mg PO BID Qty: 60 RF: 1 dexamethasone 6 mg tablet 6 mg PO DAILY Qty: 5 RF: 0 Eliquis 5 mg tablet 5 mg PO BID Qty: 60 RF: 1 Continued furosemide 40 mg tablet 40 mg PO BID RF: 0 insulin glargine 100 UNIT/ML solution 31 unit subcut QHS RF: 0 lisinopril 5 MG tablet 5 mg PO DAILY RF: 0 fluoxetine 40 MG capsule 40 mg PO DAILY RF: 0 metformin 500 mg tablet extended release 24 hr 500 mg PO BIDCM RF: 0 rosuvastatin 5 mg tablet 5 mg PO QHS RF: 0 clopidogrel 75 MG tablet 75 mg PO DAILY RF: 0 Discontinued aspirin 81 MG tablet,delayed release (DR/EC) 81 mg PO DAILY RF: 0 ibuprofen 800 mg tablet 800 mg PO Q8H PRN (Reason: Pain) RF: 0 atenolol 50 mg tablet 50 mg PO BID RF: 0 Referrals / Follow Up: Nena Calvillo MD [Primary Care Provider] - Within 2 Weeks Wisam Díaz MD [STAFF PHYSICIAN] - Within 2 Weeks Disposition Disposition (needs filled in before D/C Order can be placed): Half-Way Facility
[2021-06-29] MEDS: Metoprolol Tartrate 25 MG Tablet PO ×2 (12:59→21:52)
[2021-06-29 13:05] LABS: Bedside Glucose 293 mg/dL (70-110)
--- NOTE | 2021-06-29 13:45 | PN.HOSP_ITS ---
Subjective Subjective Patient seen and examined. She said she was feeling better today. She did complain of nausea this morning. She was on 3L of oxygen by nasal canula. Plan was to discharge her to [facility] today, but she subsequently started complaining of abdominal pain and worsening nausea, and also could barely work with PT as she desaturated to the 80s on 5L of oxygen when she tried working with therapy. Discharge was therefore cancelled. Objective Data Objective Data Vital Signs: Vital Signs Temp Pulse Resp BP Pulse Ox 97.5 F L 103 H 20 H 129/88 H 94 06/29/21 10:07 06/29/21 12:59 06/29/21 10:07 06/29/21 10:07 06/29/21 10:07 Oxygen Flow Rate (L/min) 5 Oxygen Delivery Method Nasal Cannula Weight: 232 lb 5.875 oz Body Mass Index (BMI) 39.9 Intake & Output: Intake and Output for Last 24 Hours 06/27/21 06/28/21 06/29/21 23:59 23:59 23:59 Intake Total 1330 / 1450 950 / 950 750 / 750 Output Total 925 / 1525 3650 / 4500 1600 / 1600 Balance 405 / -75 -2700 / -3550 -850 / -850 Lab / Micro Data Result Diagrams: 06/29/21 05:50 06/29/21 05:50 Labs: Laboratory Results - last 24 hr 06/28/21 15:54: COVID-19 (GERALDO) Positive 06/28/21 16:59: POC Glucose 463 H* 06/28/21 21:02: POC Glucose 337 H 06/29/21 05:50: WBC 11.5 H, RBC 5.24, Hgb 15.4 H, Hct 46.0, MCV 87.8, MCH 29.4, MCHC 33.5, RDW Std Deviation 42.7, RDW Coeff of Maritza 13.2, Plt Count 365, MPV 10.3, Immature Gran % (Auto) 0.600, Neut % (Auto) 76.1 H, Lymph % (Auto) 14.0 L, [place] % (Auto) 9.1, Eos % (Auto) 0.0, Baso % (Auto) 0.2, Absolute Neuts (auto) 8.7 H, Absolute Lymphs (auto) 1.61, Nucleated RBC % 0, Differential Comment SCANNED 06/29/21 05:50: Sodium 139, Potassium 3.5, Chloride 101, Carbon Dioxide 28.0, Anion Gap 10, BUN 50 H, Creatinine 1.01, Estim Creat Clear Calc 47.31, Est GFR (MDRD) Af Amer 71, Est GFR (MDRD) Non-Af 58 L, BUN/Creatinine Ratio 49.5 H, Glucose 236 H, Calcium 8.9 06/29/21 06:21: POC Glucose 235 H 06/29/21 12:56: POC Glucose 293 H Micro: Microbiology 06/28/21 12:25 Nasal Secretion SARS-CoV-2 Antigen (Rapid) - Final Physical Exam Const alert, oriented x3, no apparent distress and well nourished General Appearance: cooperative Orientation / Consciousness: lethargic Exam Limitations: no limitations HEENT normocephalic, head/scalp atraumatic, hearing grossly normal bilaterally and moist oral mucous membranes Head and Scalp: normocephalic Eyes PERRL, EOMs intact bilaterally and conjunctivae normal Neck no lymphadenopathy Resp normal respiratory effort, no retractions, no use of accessory muscles and clear to auscultation bilaterally Resp Narrative: mildly diminished breath sounds bibasally, no wheezes or aircraft armament mechanic ckles. On 3L of oxygen by nasal canula Cardio S1 normal heart sound, S2 normal heart sound and no murmurs Cardio Narrative: afib, mildly tachycardic GI normal to inspection, nondistended, normoactive bowel sounds, soft to palpation, non-tender and non-distended Extremity normal to inspection, full ROM and no clubbing, cyanosis or edema Peripheral Pulses: Yes pulses 2+ throughout Skin no rashes or lesions noted Neuro oriented x3, CN's II-XII intact bilaterally and moves all extremities Sensorium / Orientation: awake and alert Psych affect normal Assessment & Plan Assessment/Plan (1) Paroxysmal atrial fibrillation with RVR: (2) COVID: PLAN: #Afib * on PO metoprolol 50mg bid * on eliquis 5mg bid for thromboprophylaxis. * TSH was WNL * 2D echo: EF of 55% with normal LV systolic function and size. Normal mitral and tricuspid as well as aortic vlves; pulmonic valve not well visualised * #Acute hypoxic respiratory failure due to COVID 19 infection * now up to 5L today. She desaturated to the 80s with attempt at ambulation * on decadron and remdesivir. Consult * breathing treatment with bronchodilators. * Titrate oxygen to maintain sats >90% * consult pulmonology if respiratory status worsens. * #COVID 19 pneumonia * on decadron and remdesivir. * titrate oxygen to maintain sats >90% * breathing treatment with bronchodilators * #Type 2 diabetes mellitus * on lantus 31 units qhs. ISS. Accuchecks ACHS * #CAD: on statin, aspirin and plavix as well as atenolol DVT prophylaxis: on eliquis Code status: full code. * Disposition: discharge cancelled today due to her desaturating to the 80s with attempt at ambulation. Charges/Coding Visit Charges Inpatient E&M: 87768 Subs Hosp L3
--- NOTE | 2021-06-29 15:41 | CM.ED ---
SW Note SW completed the HENS 7000. However, CM advised patient is not being discharged today. Possible discharge on Thursday. Anastasiya GARCIA
--- NOTE | 2021-06-29 16:18 | CT_ITS ---
STUDY: CT ABDOMEN AND PELVIS WITH CONTRAST REASON FOR EXAM: Female, 66 years old. abdominal pain RADIATION DOSAGE (If Supplied By Facility): CTDIvol = ( 15.44 ) mGy, DLP = ( 1679.88 ) mGycm TECHNIQUE: Transaxial images were obtained from the dome of the diaphragm to the symphysis pubis without oral contrast. IV 100mL Isovue-300 was administered. Sagittal and coronal images were reconstructed. Individualized dose optimization techniques were used for this CT. COMPARISON: None. FINDINGS: Multifocal pulmonary infiltrates with features commonly reported with COVID pneumonia. Coronary artery stent/calcifications. Normal liver. There are surgical clips in the gallbladder fossa consistent with a prior cholecystectomy. Normal spleen. Normal pancreas. Normal bilateral adrenal glands. Normal right kidney. Normal left kidney. Normal visualized stomach. There is wall thickening of the second portion the duodenum with slight periduodenal stranding. No dilated loops of small bowel. Normal colon. The appendix is visualized and appears normal. There is diffuse atherosclerotic calcification of the abdominal aorta, without a demonstrated aneurysm. Normal inferior vena cava. Normal retroperitoneum. ANGELA catheter decompresses urinary bladder. Uterus is atrophic. Anterior abdominal wall hernia containing transverse colon. There are diffuse degenerative changes of the visualized lumbar spine. Multilevel acquired canal stenosis with degenerative anterolisthesis of L4-L5 due to facet arthropathy. CT/Abdomen/Pelvis W IV Cont ONLY IMPRESSION: 1. No bowel obstruction or pneumoperitoneum. No ascites. 2. Mild duodenitis. 3. Paraumbilical hernia containing transverse colon. 4. Multifocal infiltrates with features commonly reported with COVID pneumonia. Electronically Signed: Tanner Gaona MD ([place]) at 17:32 EDT , Service support ,
[2021-06-29 16:25] LABS: Bedside Glucose 250 mg/dL (70-110)
--- NOTE | 2021-06-29 18:20 | CON.PCM.SX_ITS ---
Assessment & Plan Assessment/Plan (1) Right lower quadrant abdominal pain: PLAN: I spent a long time looking at the CAT scan I do not see anything that looks inflammatory within the cecum itself. There does not appear to be any inflammation that would be suspicious for appendicitis. Nevertheless I think it would be appropriate to put her on some broad-spectrum antibiotics. If this is early appendicitis she is certainly in no shape really to undergo a laparoscopic appendectomy. She looks ill. HPI Consult Data Date of Consult: 06/29/21 HPI Narrative HPI Narrative: ruperto DURAN a 66 F with a PMH as outlined who presents via the ED on 06/25/2021 with a complaint of worsening shortness of breath and myalgia and generalised malaise. She was diagnosed with covid in the outpatient setting about 10 days ago. Her symptoms have gradually worsened. She also denies any chest pain but does admit to nausea, but no vomiting. Review of systems is otherwise negative. Vitals showed temp of 97F, MD of 134, BP of 122.84, RR of 18 and she was saturating at 95% on room air. EKG showed afib with RVR. She has no history of afib. CBC was unremarkable, and BMP showed Cr of 1.03 and glucose of 323. Initial troponin was 33. She was given a dose of metoprolol IV. She is be ing admitted to be managed for afib with RVR and acute hypoxic respiratory insufficiency due to covid 19 pneumonia. Patient was recovering from her Covid pneumonia. She started to develop some abdominal pain which she states is mostly in her lower abdomen. She started to develop some nausea. She was plan for discharge but this was subsequently canceled secondary to her increasing abdominal pain. In addition she was having worsening nausea and could barely work with PT as she desaturated in the 80s on 5 L of oxygen nasal cannula. CAT scan was obtained which showed a periumbilical hernia which the patient states that she has had for many years. States that her pain is not located in this area. Patient also states that she has been passing some flatus. [facility]LY [facility] Medical History Atherosclerotic heart disease of [place] coronary artery without angina pectoris Chest pain Depression Essential hypertension Hx of non-ST elevation myocardial infarction (NSTEMI) Hyperlipidemia NSTEMI (non-ST elevated myocardial infarction) Old myocardial infarction Presence of stent in coronary artery (~12/28/18) S/P coronary artery stent placement (~12/28/18) Tachycardia Type 2 diabetes mellitus Unstable angina Urinary tract infection Home Medications fluoxetine 40 mg PO DAILY 12/27/18 [History Last Taken 06/24/21] insulin glargine 31 unit SUBCUT QHS 12/27/18 [History Last Taken 06/24/21] lisinopril 5 mg PO DAILY 12/27/18 [History Last Taken 06/24/21] furosemide 40 mg tablet 40 mg PO BID tab 05/04/19 [History Last Taken 06/24/21] clopidogrel 75 mg PO DAILY 06/25/21 [History Last Taken 06/24/21] metformin 500 mg PO BIDCM 06/25/21 [History Last Taken 06/24/21] rosuvastatin 5 mg PO QHS 06/25/21 [History Last Taken 06/24/21] apixaban [Eliquis] 5 mg PO BID #60 tab 06/29/21 [Rx Last Taken Unknown] dexamethasone 6 mg PO DAILY #5 tab 06/29/21 [Rx Last Taken Unknown] metoprolol tartrate 50 mg PO BID #60 tab 06/29/21 [Rx Last Taken Unknown] Allergy/AdvReac Type Severity Reaction Status Date / Time Sulfa (Sulfonamide Allergy Hives Verified 11/17/19 10:11 Antibiotics) Surgical History History of cholecystectomy Presence of coronary angioplasty implant and graft (~12/28/18) Social History Smoking Status: Former smoker alcohol intake: never substance use type: does not use caffeine: No ROS Cardiovascular Cardiovascular: Denies chest pain Respiratory/Chest Respiratory/Chest: Reports cough, dyspnea, shortness of breath at rest and shortness of breath with exertion Gastrointestinal Gastrointestinal: Reports abdominal pain and nausea; Denies rectal bleeding or vomiting Physical Exam Const General Appearance: ill appearing Nutritional Appearance: obese morbidly obese HEENT normocephalic and head/scalp atraumatic Eyes PERRL and EOMs intact bilaterally Resp Auscultation: diminished lung sounds Cardio Rate: regular rate Rhythm: regular rhythm GI soft to palpation Palpation: tender RLQ and hernia umbilical (Reducible soft nontender) Lab / Micro Data Result Diagrams: 06/29/21 05:50 06/29/21 05:50 Labs: Laboratory Results - last 24 hr 06/28/21 21:02: POC Glucose 337 H 06/29/21 05:50: WBC 11.5 H, RBC 5.24, Hgb 15.4 H, Hct 46.0, MCV 87.8, MCH 29.4, MCHC 33.5, RDW Std Deviation 42.7, RDW Coeff of Maritza 13.2, Plt Count 365, MPV 10.3, Immature Gran % (Auto) 0.600, Neut % (Auto) 76.1 H, Lymph % (Auto) 14.0 L, [place] % (Auto) 9.1, Eos % (Auto) 0.0, Baso % (Auto) 0.2, Absolute Neuts (auto) 8.7 H, Absolute Lymphs (auto) 1.61, Nucleated RBC % 0, Differential Comment SCANNED 06/29/21 05:50: Sodium 139, Potassium 3.5, Chloride 101, Carbon Dioxide 28.0, Anion Gap 10, BUN 50 H, Creatinine 1.01, Estim Creat Clear Calc 47.31, Est GFR (MDRD) Af Amer 71, Est GFR (MDRD) Non-Af 58 L, BUN/Creatinine Ratio 49.5 H, Glucose 236 H, Calcium 8.9 06/29/21 06:21: POC Glucose 235 H 06/29/21 12:56: POC Glucose 293 H 06/29/21 16:01: POC Glucose 250 H Radiology Impression Abdomen/Pelvis CT 06/29/21 16:18 IMPRESSION: 1. No bowel obstruction or pneumoperitoneum. No ascites. 2. Mild duodenitis. 3. Paraumbilical hernia containing transverse colon. 4. Multifocal infiltrates with features commonly reported with COVID pneumonia. Electronically Signed: Tanner Gaona MD ([place]) at 17:32 EDT , Service support ,
[2021-06-29] MEDS: proMETHazine 25 MG/ML Syringe IM (18:43)
[2021-06-29] MEDS: APIXABAN 5 MG TABLET PO (21:38)
[2021-06-29] MEDS: Atorvastatin Calcium 10 MG Tablet PO (21:39)
[2021-06-29 23:06] LABS: Bedside Glucose 283 mg/dL (70-110)
[2021-06-30] VITALS (21 sets, daily range): BP systolic 117–164; BP diastolic 65–90; PULSE 89–127; RESP 16–21; TEMP 36.1–37.3; O2SAT 88–96
[2021-06-30] MEDS: Ondansetron 4 MG/2 ML Vial IV (00:29)
[2021-06-30] MEDS: 0.9% Saline Lock 10 ML Syringe IV ×2 (00:29→22:28)
[2021-06-30] MEDS: traMADol 50 MG Tablet PO (02:58)
[2021-06-30] MEDS: Nystatin Powder 15gm Bottle 1 APPLIC TOPICAL ×3 (05:31→22:15)
[2021-06-30] MEDS: Insulin Lispro 100 UNIT/ML INSULN.PEN SC ×4 (06:36→22:24)
[2021-06-30 06:42] LABS: Absolute Neutrophil Count 13.3 X10^3/uL (2.0-7.7); Basophil# 0.03 X10^3/uL; Basophil% 0.2 % (0-1); Hematocrit 44.4 % (37-47); Hemoglobin 14.6 g/dL (12.0-15.0); Lymphocyte % 6.5 % (19-41); Mean Corp Hgb Conc 32.9 g/dL (32-36); Mean Corpuscular Hgb 29.4 pg (27.0-32.0); Mean Corpuscular Volume 89.5 fL (81-99); Mean Platelet Vol. 10.3 fl (6.2-12.0); Monocyte# 0.91 X10^3/uL; Monocyte% 5.9 % (0-10); NRBC Flagged by Analyzer 0 % (0-5); Neutrophil # 13.32 X10^3/uL (2.7-7.7); Neutrophil % 86.7 % (47-70); Platelet Count 341 K/mm3 (150-450); Red Blood Count 4.96 M/mm3 (4.2-5.4); White Blood Count 15.4 K/mm3 (4.4-11.0)
[2021-06-30 06:59] LABS: Anion Gap 8 (5-15); BUN 37 mg/dL (7-18); BUN/Creat Ratio 40.1 RATIO (10-20); Calcium,Total 8.6 mg/dL (8.5-10.1); Chloride 100 mmol/L (98-107); Creatinine, Serum 0.92 mg/dL (0.55-1.02); EST Glomerular Filtration Rate 65 mL/min (>60); Est Glom Filt Rate - Afr Amer 78 mL/min (>60); Estimated Creatinine Clearance 51.94 ml/min; Glucose 299 mg/dL (74-106); Potassium 3.1 mmol/L (3.5-5.1); Sodium Level 138 mmol/L (136-145)
[2021-06-30 07:10] LABS: Bedside Glucose 301 mg/dL (70-110)
[2021-06-30] MEDS: Potassium Chloride Oral Tablet 20 MEQ 60 MEQ PO (09:24)
[2021-06-30] MEDS: FLUoxetine 20 MG Capsule 40 MG PO (09:25)
[2021-06-30] MEDS: Metoprolol Tartrate 25 MG Tablet PO ×2 (09:25→22:15)
[2021-06-30] MEDS: Aspirin E.C. 81 MG Tablet PO (09:25)
[2021-06-30] MEDS: Lisinopril 5 MG Tablet PO (09:25)
[2021-06-30] MEDS: dexAMETHasone 2 MG TABLET 6 MG PO ×2 (09:25→09:26)
[2021-06-30] MEDS: Furosemide 40 MG Tablet PO ×2 (09:26→17:14)
[2021-06-30] MEDS: Clopidogrel Bisulfate 75 MG Tablet PO (09:26)
[2021-06-30] MEDS: APIXABAN 5 MG TABLET PO ×2 (09:27→22:15)
[2021-06-30] MEDS: Menthol/Lanolin/Calamine/Znox 113 GM Tube 1 APPLIC TOPICAL ×4 (09:28→22:14)
[2021-06-30] MEDS: NYSTATIN 500,000 UNIT/5 ML UDC 500000 UNIT PO ×4 (09:29→22:23)
[2021-06-30 09:51] LABS: Allen Test Positive; Base Excess 7 mmol/L (-2 to +2); Bicarbonate 30.4 mmol/L (22-26); Blood Gas Specimen Type ART; O2 Delivery Device HFNC; PO2 48 mmHG (75-100); SITE L Radial; SO2 87 % (95-99); Total Carbon Dioxide 32 mmol/L; pCO2 38.7 mmHg (35-45)
--- NOTE | 2021-06-30 10:17 | PN.SURG_ITS ---
Subjective Subjective Still complaining of abdominal pain. Patient still having significant difficulty breathing and oxygen requirements are going up Objective Data Objective Data No rebound guarding or peritoneal signs are identified. Umbilical hernia is reducible Vital Signs: Vital Signs Temp Pulse Resp BP Pulse Ox 97.9 F 104 H 20 H 164/90 H 89 06/30/21 03:07 06/30/21 09:25 06/30/21 03:07 06/30/21 09:25 06/30/21 09:31 Oxygen Flow Rate (L/min) 15 Oxygen Delivery Method Nasal Cannula Weight: 232 lb 5.875 oz Body Mass Index (BMI) 39.9 Intake & Output: Intake and Output for Last 24 Hours 06/28/21 06/29/21 06/30/21 23:59 23:59 23:59 Intake Total 950 / 950 930 / 1050 260 / 260 Output Total 3650 / 4500 2325 / 2825 575 / 575 Balance -2700 / -3550 -1395 / -1775 -315 / -315 Lab / Micro Data Result Diagrams: 06/30/21 06:27 06/30/21 06:27 Labs: Laboratory Results - last 24 hr 06/29/21 12:56: POC Glucose 293 H 06/29/21 16:01: POC Glucose 250 H 06/29/21 21:47: POC Glucose 283 H 06/30/21 06:27: WBC 15.4 H, RBC 4.96, Hgb 14.6, Hct 44.4, MCV 89.5, MCH 29.4, MCHC 32.9, RDW Std Deviation 43.0, RDW Coeff of Maritza 13.0, Plt Count 341, MPV 1 0.3, Immature Gran % (Auto) 0.700, Neut % (Auto) 86.7 H, Lymph % (Auto) 6.5 L, [place] % (Auto) 5.9, Eos % (Auto) 0.0, Baso % (Auto) 0.2, Absolute Neuts (auto) 13.3 H, Absolute Lymphs (auto) 1.00, Nucleated RBC % 0 06/30/21 06:27: Sodium 138, Potassium 3.1 L, Chloride 100, Carbon Dioxide 30.0, Anion Gap 8, BUN 37 H, Creatinine 0.92, Estim Creat Clear Calc 51.94, Est GFR (MDRD) Af Amer 78, Est GFR (MDRD) Non-Af 65, BUN/Creatinine Ratio 40.1 H, Glucose 299 H, Calcium 8.6 06/30/21 06:35: POC Glucose 301 H Micro: Microbiology 06/28/21 12:25 Nasal Secretion SARS-CoV-2 Antigen (Rapid) - Final ABG Data ABG results: ABG 06/30/21 09:46 Specimen Type ART Sample Site L Radial pH 7.50 H Bicarbonate Actual 30.4 H Total CO2 32 Base Excess 7 H O2 Saturation 87 L ABG pCO2 38.7 ABG pO2 48 L Josh Test Positive O2 Delivery Device HFNC Liter Flow 15.0 Radiography Diagnostic Testing: Radiology Impression Abdomen/Pelvis CT 06/29/21 16:18 IMPRESSION: 1. No bowel obstruction or pneumoperitoneum. No ascites. 2. Mild duodenitis. 3. Paraumbilical hernia containing transverse colon. 4. Multifocal infiltrates with features commonly reported with COVID pneumonia. Electronically Signed: Tanner Gaona MD ([place]) at 17:32 EDT , Service support , Assessment & Plan Assessment/Plan (1) Right lower quadrant abdominal pain: PLAN: I believe her pain is mostly musculoskeletal in nature. I do not think she has an intra-abdominal process going on at this time. Worrisome is that her oxygenation status is worsening.
--- NOTE | 2021-06-30 10:30 | PN.HOSP_ITS ---
Subjective Subjective Patient seen and examined. Patient has deteriorated significantly since yesterday. She is much more short of breath today. She was on 8 L of oxygen at time I reviewed her but subsequently went up to 15 L of oxygen. She is is complaining of abdominal pain today. She complained of same yesterday and a CT of the abdomen was done which showed a paraumbilical hernia with transverse colon in it. General surgery was consulted and didn't think she had an acute abdominal pathology. Patient looks very ill and lethargic today. She is tachycardic this morning with HR up to 122. Objective Data Objective Data Vital Signs: Vital Signs Temp Pulse Resp BP Pulse Ox 97.9 F 104 H 20 H 164/90 H 89 06/30/21 03:07 06/30/21 09:25 06/30/21 03:07 06/30/21 09:25 06/30/21 09:31 Oxygen Flow Rate (L/min) 15 Oxygen Delivery Method Nasal Cannula Weight: 232 lb 5.875 oz Body Mass Index (BMI) 39.9 Intake & Output: Intake and Output for Last 24 Hours 06/28/21 06/29/21 06/30/21 23:59 23:59 23:59 Intake Total 950 / 950 930 / 1050 260 / 260 Output Total 3650 / 4500 2325 / 2825 575 / 575 Balance -2700 / -3550 -1395 / -1775 -315 / -315 Lab / Micro Data Result Diagrams: 06/30/21 06:27 06/30/21 06:27 Labs: Laboratory Results - last 24 hr 06/29/21 12:56: POC Glucose 293 H 06/29/21 16:01: POC Glucose 250 H 06/29/21 21:47: POC Glucose 283 H 06/30/21 06:27: WBC 15.4 H, RBC 4.96, Hgb 14.6, Hct 44.4, MCV 89.5, MCH 29.4, MCHC 32.9, RDW Std Deviation 43.0, RDW Coeff of Maritza 13.0, Plt Count 341, MPV 10.3, Immature Gran % (Auto) 0.700, Neut % (Auto) 86.7 H, Lymph % (Auto) 6.5 L, [place] % (Auto) 5.9, Eos % (Auto) 0.0, Baso % (Auto) 0.2, Absolute Neuts (auto) 13.3 H, Absolute Lymphs (auto) 1.00, Nucleated RBC % 0 06/30/21 06:27: Sodium 138, Potassium 3.1 L, Chloride 100, Carbon Dioxide 30.0, Anion Gap 8, BUN 37 H, Creatinine 0.92, Estim Creat Clear Calc 51.94, Est GFR (MDRD) Af Amer 78, Est GFR (MDRD) Non-Af 65, BUN/Creatinine Ratio 40.1 H, Glucose 299 H, Calcium 8.6 06/30/21 06:35: POC Glucose 301 H Micro: Microbiology 06/28/21 12:25 Nasal Secretion SARS-CoV-2 Antigen (Rapid) - Final ABG Data ABG results: ABG 06/30/21 09:46 Specimen Type ART Sample Site L Radial pH 7.50 H Bicarbonate Actual 30.4 H Total CO2 32 Base Excess 7 H O2 Saturation 87 L ABG pCO2 38.7 ABG pO2 48 L Josh Test Positive O2 Delivery Device HFNC Liter Flow 15.0 Radiography Diagnostic Testing: Radiology Impression Abdomen/Pelvis CT 06/29/21 16:18 IMPRESSION: 1. No bowel obstruction or pneumoperitoneum. No ascites. 2. Mild duodenitis. 3. Paraumbilical hernia containing transverse colon. 4. Multifocal infiltrates with features commonly reported with COVID pneumonia. Electronically Signed: Tanner Gaona MD ([place]) at 17:32 EDT , Service support , Physical Exam Const alert, oriented x3, no apparent distress and well nourished Constitutional Narrative: patient looks very weak and lethargic. General Appearance: cooperative Orientation / Consciousness: lethargic Exam Limitations: no limitations HEENT normocephalic, head/scalp atraumatic, hearing grossly normal bilaterally and moist oral mucous membranes Head and Scalp: normocephalic Eyes PERRL, EOMs intact bilaterally and conjunctivae normal Neck no lymphadenopathy Resp normal respiratory effort, no retractions, no use of accessory muscles and clear to auscultation bilaterally Resp Narrative: mildly diminished breath sounds bibasally, no wheezes or crackles. On 15L of oxygen. Cardio S1 normal heart sound, S2 normal heart sound and no murmurs Cardio Narrative: afib, mildly tachycardic GI normal to inspection, nondistended, normoactive bowel sounds, soft to palpation, non-tender and non-distended Extremity normal to inspection, full ROM and no clubbing, cyanosis or edema Peripheral Pulses: Yes pulses 2+ throughout Skin no rashes or lesions noted Neuro oriented x3, CN's II-XII intact bilaterally and moves all extremities Sensorium / Orientation: awake and alert Psych Psych Narrative: flat affect Assessment & Plan Assessment/Plan (1) Paroxysmal atrial fibrillation with RVR: (2) COVID: PLAN: #Afib * on PO metoprolol 50mg bid; patient tachycardic at 122 today. * on eliquis 5mg bid for thromboprophylaxis. * TSH was WNL * 2D echo: EF of 55% with normal LV systolic function and size. Normal mitral and tricuspid as well as aortic vlves; pulmonic valve not well visualised * #Acute hypoxic respiratory failure due to COVID 19 infection * went up to 15L today, and now up on BIPAP. * on decadron and remdesivir. * Pulmonology consulted o/a of worsening respiratory status. * titrate oxygen to maintain sats >90% * consult ID. * ABG done showed pH of 7.5, with pCO2 of 32 and pO2 of 48. * transition to AirVo. #COVID 19 pneumonia * on decadron and remdesivir. * titrate oxygen to maintain sats >90% * breathing treatment with bronchodilators * #Hypokalemia: K is 3.1. Will replace and trend. #Type 2 diabetes mellitus * on lantus 31 units qhs. ISS. Accuchecks ACHS * #CAD: on statin, aspirin and plavix as well as atenolol DVT prophylaxis: on eliquis Code status: full code. * Charges/Coding Visit Charges Inpatient E&M: 91639 Subs Hosp L3
[2021-06-30] MEDS: Metoprolol Tartrate 5 MG/5 ML Vial IV (10:36)
[2021-06-30 11:45] LABS: Bedside Glucose 388 mg/dL (70-110)
[2021-06-30] MEDS: dilTIAZem 25 MG/5 ML Vial IV BOLUS (14:42)
[2021-06-30 17:21] LABS: Bedside Glucose 372 mg/dL (70-110)
[2021-06-30] MEDS: Atorvastatin Calcium 10 MG Tablet PO (22:15)
[2021-06-30 22:46] LABS: Bedside Glucose 382 mg/dL (70-110)
[2021-07-01] VITALS (39 sets, daily range): BP systolic 111–157; BP diastolic 70–99; PULSE 99–135; RESP 12–36; TEMP 36.1–37; O2SAT 87–97
[2021-07-01] MEDS: Furosemide 40 MG/4 ML Vial IV (06:10)
[2021-07-01] MEDS: Nystatin Powder 15gm Bottle 1 APPLIC TOPICAL ×2 (06:10→20:09)
[2021-07-01] MEDS: Insulin Lispro 100 UNIT/ML INSULN.PEN SC ×4 (06:11→20:11)
[2021-07-01] MEDS: 0.9% Saline Lock 10 ML Syringe IV ×5 (06:12→20:12)
[2021-07-01 06:25] LABS: Bedside Glucose 266 mg/dL (70-110)
--- NOTE | 2021-07-01 06:44 | PCM.HOSP.N ---
Hospitalist Note Patient with transition to BIPAP. Administered additionally lasix 40 mg IV x 1. Telemetry now with episode recurrent atrial fibrillation with RVR, will administer cardizem 20 mg IV x 1.
[2021-07-01] MEDS: dilTIAZem 25 MG/5 ML Vial 20 MG IV BOLUS (07:24)
[2021-07-01 07:34] LABS: Absolute Lymphocyte Count 0.77 X10^3/uL (0.83-4.51); Absolute Neutrophil Count 14.2 X10^3/uL (2.0-7.7); Basophil# 0.03 X10^3/uL; Basophil% 0.2 % (0-1); Hematocrit 43.8 % (37-47); Hemoglobin 14.5 g/dL (12.0-15.0); Lymphocyte # 0.77 X10^3/ul (0.83-4.51); Lymphocyte % 4.9 % (19-41); Mean Corp Hgb Conc 33.1 g/dL (32-36); Mean Corpuscular Hgb 29.5 pg (27.0-32.0); Mean Platelet Vol. 10.4 fl (6.2-12.0); Monocyte% 4.4 % (0-10); NRBC Flagged by Analyzer 0 % (0-5); Neutrophil # 14.15 X10^3/uL (2.7-7.7); Neutrophil % 89.6 % (47-70); POSITIVE MORPHOLOGY YES; Platelet Count 350 K/mm3 (150-450); RBC Distribution Width SD 42.7 fl (35.1-43.9); Red Blood Count 4.92 M/mm3 (4.2-5.4); White Blood Count 15.8 K/mm3 (4.4-11.0)
--- NOTE | 2021-07-01 07:42 | NURSING ---
Updated pt's daughter that pt was taken off of airvo and put on bipap d/t increased oxygen needs.
[2021-07-01 07:46] LABS: Differential Indicated SCAN CRITERIA MET
[2021-07-01 08:07] LABS: Anion Gap 9 (5-15); BUN 31 mg/dL (7-18); BUN/Creat Ratio 31.2 RATIO (10-20); Calcium,Total 8.8 mg/dL (8.5-10.1); Chloride 100 mmol/L (98-107); Creatinine, Serum 0.99 mg/dL (0.55-1.02); EST Glomerular Filtration Rate 59 mL/min (>60); Est Glom Filt Rate - Afr Amer 72 mL/min (>60); Estimated Creatinine Clearance 48.27 ml/min; Glucose 280 mg/dL (74-106); Sodium Level 139 mmol/L (136-145)
[2021-07-01 08:15] LABS: Platelet Estimate ADEQUATE (ADEQ); Platelet Morphology LARGE
--- NOTE | 2021-07-01 09:36 | NURSING ---
Report called to Tameka BAUER in the ICU at [phone].
[2021-07-01] MEDS: Lisinopril 5 MG Tablet PO (10:20)
[2021-07-01] MEDS: Metoprolol Tartrate 25 MG Tablet PO ×2 (10:20→20:06)
[2021-07-01] MEDS: Menthol/Lanolin/Calamine/Znox 113 GM Tube 1 APPLIC TOPICAL ×3 (10:27→20:08)
[2021-07-01 11:36] LABS: Bedside Glucose 277 mg/dL (70-110)
[2021-07-01 13:11] LABS: Allen Test Positive; Base Excess 7 mmol/L (-2 to +2); Bicarbonate 30.5 mmol/L (22-26); Blood Gas Specimen Type ART; FI02 85; O2 Delivery Device BiPAP; PO2 70 mmHG (75-100); RR 12; SITE R Radial; SO2 95 % (95-99); Total Carbon Dioxide 32 mmol/L; pCO2 39.1 mmHg (35-45)
--- NOTE | 2021-07-01 13:15 | CON.PCM.CC_ITS ---
Assessment & Plan Assessment/Plan (1) COVID: (2) Acute respiratory failure with hypoxia: (3) Paroxysmal atrial fibrillation with RVR: (4) Type 2 diabetes mellitus: PLAN: RECOMMENDATIONS: 1. Increase Lantus 2. Agree with aggressive diuresis 3. Potassium supplementation as tolerates 4. Decrease IPAP on BiPAP therapy 5. Wean supplemental oxygen as tolerated 6. Obtain panculture and initiate empiric antibiotics with fever IMPRESSIONS: 1. Acute hypoxic respiratory failure secondary to COVID-19 Unclear etiology for acute decompensation. Patient reportedly is negative for the hospitalization, but weight has not been checked in several days. Will add daily weights. We will hold on any additional doses of Lasix, but clinical suspicion is for an element of CHF given rapid response to BiPAP therapy. Delayed presentation limits ability/options for COVID-19 therapy. Patient is appropriately on Decadron through 07/06/2021. Cannot exclude the need for intubation, but ABG shows adequate oxygenation and overventilation at this time. IPAP will be decreased. Patient is on Eliquis therapy, so pulmonary embolism is unlikely. 2. A. fib with RVR/CAD/acute on chronic diastolic CHF Patient does have a history of coronary artery disease and chronic Lasix therapy. EF was preserved previously. We will continue to control heart rate as possible. It does not appear that the patient has been seen by cardiology in consultation. Patient remains on anticoagulation, statin, aspirin and Plavix. Continue atenolol for now. 3. Hypokalemia secondary to Lasix therapy Potassium supplementation has been ordered. May need to give an additional dose later today given active diuresis. Patient may have an element of osmotic diuresis secondary to hyperglycemia. 4. Uncontrolled diabetes mellitus Patient with severely elevated blood sugars at this time. Lantus will be increased. Patient is on Decadron therapy. 5. Morbid obesity/unvaccinated status/umbilical hernia/depression Complicates care, management, recovery and prognosis. Patient does not appear to have an acute abdomen at this time. Continue to reduce hernia if necessary. If unable to reduce, may need to reinvolve surgery. HPI Consult Data Date of Consult: 07/01/21 HPI Narrative HPI Narrative: ELISABET VAUGHAN is a 66 F, with past medical history listed below, who presented to [facility]21 secondary to progressive shortness of breath with a diagnosis of Covid. Patient had reported onset of symptoms 10 days prior to presentation and was diagnosed as an outpatient. Patient had reported periods of shortness of breath, myalgias and significant malaise. Patient did have nausea, but never vomited. No diarrhea or chest pain was reported. Patient had reported palpitations despite not having a history of A. fib or flutter previously. On presentation to the ER, patient was afebrile with a heart rate of 71 and a blood pressure of 122/84. Patient was saturating 95% on room air at that time. However, while in the ER, patient developed A. fib with RVR with a rate of [address] changes. Patient was given some insulin and metoprolol. Chest x-ray showed bilateral infiltrates. Patient was given Decadron and admitted to the floor secondary to concerns for her A. fib with RVR complicating her Covid status. Hospital course has been complicated by an umbilical hernia that was reducible. Surgical intervention was not recommended. Patient had been on the PCU for approximately 5 days prior to having significant worsening in her oxygenation status. A pulmonary consult was obtained, but overnight patient continued to get worse requiring initiation of BiPAP therapy. Patient was on 100% BiPAP this morning, so she was subsequently transferred to the intensive care unit for further evaluation. Since being in the intensive care unit, patient's oxygenation has improved somewhat. Patient continues to have conversational dys pnea, but accessory muscle use is much improved. Patient is quite tired and falls asleep quickly if not receiving stimulus. Patient does have an extensive cardiac history and was in cardiac rehab re cently. Patient had been seen in pulmonary secondary to dyspnea, but had reported complete resolution following drug-eluting stent placement in the proximal and mid LAD. Patient had been initiated on Lasix therapy following her stent placement. Patient denies any history of obstructive sleep apnea. Patient does have a history of smoking, but no pulmonary function tests have been obtained. Patient does state that she was not vaccinated against COVID-19. Patient has not required supplemental oxygen outside of her hospitalization for non-ST elevation [place]. Review of systems otherwise negative from a constitutional, HEENT, respiratory, cardiovascular, GI, genitourinary, musculoskeletal, skin, neurologic, psychiatric and hematologic system unless stated above. [facility] Medical History Atherosclerotic heart disease of [place] coronary artery without angina pectoris Chest pain Depression Essential hypertension Hx of non-ST elevation myocardial infarction (NSTEMI) Hyperlipidemia NSTEMI (non-ST elevated myocardial infarction) Old myocardial infarction Presence of stent in coronary artery (~12/28/18) S/P coronary artery stent placement (~12/28/18) Tachycardia Type 2 diabetes mellitus Unstable angina Urinary tract infection Home Medications fluoxetine 40 mg PO DAILY 12/27/18 [History Last Taken 06/24/21] insulin glargine 31 unit SUBCUT QHS 12/27/18 [History Last Taken 06/24/21] lisinopril 5 mg PO DAILY 12/27/18 [History Last Taken 06/24/21] furosemide 40 mg tablet 40 mg PO BID tab 05/04/19 [History Last Taken 06/24/21] clopidogrel 75 mg PO DAILY 06/25/21 [History Last Taken 06/24/21] metformin 500 mg PO BIDCM 06/25/21 [History Last Taken 06/24/21] rosuvastatin 5 mg PO QHS 06/25/21 [History Last Taken 06/24/21] apixaban [Eliquis] 5 mg PO BID #60 tab 06/29/21 [Rx Last Taken Unknown] dexamethasone 6 mg PO DAILY #5 tab 06/29/21 [Rx Last Taken Unknown] metoprolol tartrate 50 mg PO BID #60 tab 06/29/21 [Rx Last Taken Unknown] Allergy/AdvReac Type Severity Reaction Status Date / Time Sulfa (Sulfonamide Allergy Hives Verified 11/17/19 10:11 Antibiotics) Surgical History History of cholecystectomy Presence of coronary angioplasty implant and graft (~12/28/18) Social History Smoking Status: Former smoker alcohol intake: never substance use type: does not use caffeine: No ROS ROS Narrative See HPI Physical Exam Const alert, oriented x3, no apparent distress and well nourished General Appearance: cooperative and on BiPAP Orientation / Consciousness: lethargic Exam Limitations: no limitations Nutritional Appearance: morbidly obese HEENT normocephalic, head/scalp atraumatic, hearing grossly normal bilaterally and moist oral mucous membranes Head and Scalp: normocephalic Eyes PERRL, EOMs intact bilaterally and conjunctivae normal Neck no lymphadenopathy Chest inspection of chest normal Chest: symmetrical chest wall rise; Negative for crepitus Resp normal respiratory effort, no retractions and no use of accessory muscles Effort and Inspection: Negative for actively coughing Auscultation: diminished lung sounds; Negative for rales, rhonchi or wheezes Cardio S1 normal heart sound, S2 normal heart sound and no murmurs Rate: tachycardic Rhythm: abnormal rhythm irregularly irregular GI normal to inspection, nondistended, normoactive bowel sounds, soft to palpation, non-tender and non-distended Extremity normal to inspection, full ROM and no clubbing, cyanosis or edema Peripheral Pulses: Yes pulses 2+ throughout Skin no rashes or lesions noted Neuro oriented x3, CN's II-XII intact bilaterally and moves all extremities Sensorium / Orientation: awake and alert Psych Psych Narrative: flat affect Lab / Micro Data Result Diagrams: 07/01/21 07:12 07/01/21 07:12 Labs: Laboratory Results - last 24 hr 06/30/21 17:05: POC Glucose 372 H 06/30/21 22:13: POC Glucose 382 H 07/01/21 06:09: POC Glucose 266 H 07/01/21 07:12: WBC 15.8 H, RBC 4.92, Hgb 14.5, Hct 43.8, MCV 89.0, MCH 29.5, MCHC 33.1, RDW Std Deviation 42.7, RDW Coeff of Maritza 13.0, Plt Count 350, MPV 10.4, Immature Gran % (Auto) 0.900, Neut % (Auto) 89.6 H, Lymph % (Auto) 4.9 L, [place] % (Auto) 4.4, Eos % (Auto) 0.0, Baso % (Auto) 0.2, Absolute Neuts (auto) 14.2 H, Absolute Lymphs (auto) 0.77 L, Nucleated RBC % 0, Platelet Estimate ADEQUATE, Plt Morphology Comment LARGE 07/01/21 07:12: Sodium 139, Potassium 3.0 L, Chloride 100, Carbon Dioxide 30.0, Anion Gap 9, BUN 31 H, Creatinine 0.99, Estim Creat Clear Calc 48.27, Est GFR (MDRD) Af Amer 72, Est GFR (MDRD) Non-Af 59 L, BUN/Creatinine Ratio 31.2 H, Glucose 280 H, Calcium 8.8 07/01/21 11:13: POC Glucose 277 H ABG Data ABG results: ABG 07/01/21 13:05 Specimen Type ART Sample Site R Radial pH 7.50 H Bicarbonate Actual 30.5 H Total CO2 32 Base Excess 7 H O2 Saturation 95 O2 % 85 ABG pCO2 39.1 ABG pO2 70 L Josh Test Positive Respiration Rate 12 O2 Delivery Device BiPAP Charges/Coding Visit Charges Inpatient E&M: 21325 Init Hosp L3
--- NOTE | 2021-07-01 14:58 | CON.PCM.ID_ITS ---
Assessment & Plan Assessment/Plan (1) Acute respiratory failure with hypoxia: (2) COVID: PLAN: Unvaccinated, sx started around 06/16. Isolate for 20 days. On dex, completed remdesivir. Worsening O2, will check sputum cx, crp, LFT, procal, BNP. On empiric zosyn. Pulm has seen. Reviewed EUA and risks/benefits of baricitinib with the patient, we agree to start. Will follow, thank you HPI Consult Data Date of Consult: 07/01/21 HPI Narrative HPI Narrative: ELISABET VAUGHAN, is a 66 F who presented with sx starting around 06/16. Tested (+) for covid around that time. C/o fatigue, fever, chills, headache, aches, cough, progressive dyspnea. Admitted 06/25 from the ED, given remdesivir and dex. Now with worsening O2, started on zosyn. Unvaccinated. Full ROS performed and neg except as noted above. [facility] Medical History Atherosclerotic heart disease of [place] coronary artery without angina pectoris Chest pain Depression Essential hypertension Hx of non-ST elevation myocardial infarction (NSTEMI) Hyperlipidemia NSTEMI (non-ST elevated myocardial infarction) Old myocardial infarction Presence of stent in coronary artery (~12/28/18) S/P coronary artery stent placement (~12/28/18) Tachycardia Type 2 diabetes mellitus Unstable angina Urinary tract infection Home Medications fluoxetine 40 mg PO DAILY 12/27/18 [History Last Taken 06/24/21] insulin glargine 31 unit SUBCUT QHS 12/27/18 [History Last Taken 06/24/21] lisinopril 5 mg PO DAILY 12/27/18 [History Last Taken 06/24/21] furosemide 40 mg tablet 40 mg PO BID tab 05/04/19 [History Last Taken 06/24/21] clopidogrel 75 mg PO DAILY 06/25/21 [History Last Taken 06/24/21] metformin 500 mg PO BIDCM 06/25/21 [History Last Taken 06/24/21] rosuvastatin 5 mg PO QHS 06/25/21 [History Last Taken 06/24/21] apixaban [Eliquis] 5 mg PO BID #60 tab 06/29/21 [Rx Last Taken Unknown] dexamethasone 6 mg PO DAILY #5 tab 06/29/21 [Rx Last Taken Unknown] metoprolol tartrate 50 mg PO BID #60 tab 06/29/21 [Rx Last Taken Unknown] Allergy/AdvReac Type Severity Reaction Status Date / Time Sulfa (Sulfonamide Allergy Hives Verified 11/17/19 10:11 Antibiotics) Surgical History History of cholecystectomy Presence of coronary angioplasty implant and graft (~12/28/18) Social History Smoking Status: Former smoker alcohol intake: never substance use type: does not use caffeine: No Physical Exam Const alert Constitutional Narrative: ill appearing General Appearance: cooperative Exam Limitations: no limitations HEENT normocephalic and head/scalp atraumatic Eyes PERRL and EOMs intact bilaterally Neck supple and No nodes Resp Auscultation: diminished lung sounds Cardio Rate: tachycardic GI normal to inspection, nondistended, normoactive bowel sounds Extremity no clubbing, cyanosis or edema Skin no rashes or lesions noted Neuro CN's II-XII intact bilaterally Lab / Micro Data Result Diagrams: 07/01/21 07:12 07/01/21 07:12 Labs: Laboratory Results - last 24 hr 06/30/21 17:05: POC Glucose 372 H 06/30/21 22:13: POC Glucose 382 H 07/01/21 06:09: POC Glucose 266 H 07/01/21 07:12: WBC 15.8 H, RBC 4.92, Hgb 14.5, Hct 43.8, MCV 89.0, MCH 29.5, MCHC 33.1, RDW Std Deviation 42.7, RDW Coeff of Maritza 13.0, Plt Count 350, MPV 10.4, Immature Gran % (Auto) 0.900, Neut % (Auto) 89.6 H, Lymph % (Auto) 4.9 L, [place] % (Auto) 4.4, Eos % (Auto) 0.0, Baso % (Auto) 0.2, Absolute Neuts (auto) 14.2 H, Absolute Lymphs (auto) 0.77 L, Nucleated RBC % 0, Platelet Estimate ADEQUATE, Plt Morphology Comment LARGE 07/01/21 07:12: Sodium 139, Potassium 3.0 L, Chloride 100, Carbon Dioxide 30.0, Anion Gap 9, BUN 31 H, Creatinine 0.99, Estim Creat Clear Calc 48.27, Est GFR (M DRD) Af Amer 72, Est GFR (MDRD) Non-Af 59 L, BUN/Creatinine Ratio 31.2 H, Glucose 280 H, Calcium 8.8 07/01/21 11:13: POC Glucose 277 H ABG Data ABG results: ABG 07/01/21 13:05 Specimen Type ART Sample Site R Radial pH 7.50 H Bicarbonate Actual 30.5 H Total CO2 32 Base Excess 7 H O2 Saturation 95 O2 % 85 ABG pCO2 39.1 ABG pO2 70 L Josh Test Positive Respiration Rate 12 O2 Delivery Device BiPAP
--- NOTE | 2021-07-01 15:04 | PN.HOSP_ITS ---
Subjective Subjective Patient seen and examined. SHe was on BIPAP. She looked much worse and has deteriorated. SHe is very lethargic. She is tachycardic and tachypneic. Review of sysems is otherwise negative. Objective Data Objective Data Vital Signs: Vital Signs Temp Pulse Resp BP Pulse Ox 97.2 F L 121 H 23 H 126/71 H 96 07/01/21 12:00 07/01/21 14:00 07/01/21 14:00 07/01/21 14:00 07/01/21 14:00 Oxygen Flow Rate (L/min) 40 Oxygen Delivery Method Bi-pap Weight: 232 lb 5.875 oz Body Mass Index (BMI) 39.9 Intake & Output: Intake and Output for Last 24 Hours 06/29/21 06/30/21 07/01/21 23:59 23:59 23:59 Intake Total 930 / 1050 1010 / 1070 270 / 270 Output Total 2325 / 2825 1150 / 1700 650 / 650 Balance -1395 / -1775 -140 / -630 -380 / -380 Lab / Micro Data Result Diagrams: 07/01/21 07:12 07/01/21 07:12 Labs: Laboratory Results - last 24 hr 06/30/21 17:05: POC Glucose 372 H 06/30/21 22:13: POC Glucose 382 H 07/01/21 06:09: POC Glucose 266 H 07/01/21 07:12: WBC 15.8 H, RBC 4.92, Hgb 14.5, Hct 43.8, MCV 89.0, MCH 29.5, MCHC 33.1, RDW Std Deviation 42.7, RDW Coeff of Maritza 13.0, Plt Count 350, MPV 10.4, Immature Gran % (Auto) 0.900, Neut % (Auto) 89.6 H, Lymph % (Auto) 4.9 L, [place] % (Auto) 4.4, Eos % (Auto) 0.0, Baso % (Auto) 0.2, Absolute Neuts (auto) 14.2 H, Absolute Lymphs (auto) 0.77 L, Nucleated RBC % 0, Platelet Estimate ADEQUATE, Plt Morphology Comment LARGE 07/01/21 07:12: Sodium 139, Potassium 3.0 L, Chloride 100, Carbon Dioxide 30.0, Anion Gap 9, BUN 31 H, Creatinine 0.99, Estim Creat Clear Calc 48.27, Est GFR (MDRD) Af Amer 72, Est GFR (MDRD) Non-Af 59 L, BUN/Creatinine Ratio 31.2 H, Glucose 280 H, Calcium 8.8 07/01/21 11:13: POC Glucose 277 H Micro: Microbiology 06/28/21 12:25 Nasal Secretion SARS-CoV-2 Antigen (Rapid) - Final ABG Data ABG results: ABG 07/01/21 13:05 Specimen Type ART Sample Site R Radial pH 7.50 H Bicarbonate Actual 30.5 H Total CO2 32 Base Excess 7 H O2 Saturation 95 O2 % 85 ABG pCO2 39.1 ABG pO2 70 L Josh Test Positive Respiration Rate 12 O2 Delivery Device BiPAP Physical Exam Const alert, oriented x3 and no apparent distress Constitutional Narrative: patient is very weak and lethargic. General Appearance: cooperative Orientation / Consciousness: lethargic Exam Limitations: no limitations HEENT normocephalic, head/scalp atraumatic, hearing grossly normal bilaterally and moist oral mucous membranes Head and Scalp: normocephalic Eyes PERRL, EOMs intact bilaterally and conjunctivae normal Neck no lymphadenopathy Resp Resp Narrative: mildly diminished breath sounds bibasally,bilateral crackles, tachypneic, on BIPAP. Cardio S1 normal heart sound, S2 normal heart sound and no murmurs Cardio Narrative: afib, tachycardic GI normal to inspection, nondistended, normoactive bowel sounds, soft to palpation, non-tender and non-distended Extremity normal to inspection, full ROM and no clubbing, cyanosis or edema Peripheral Pulses: Yes pulses 2+ throughout Skin no rashes or lesions noted Neuro oriented x3, CN's II-XII intact bilaterally and moves all extremities Neuro Narrative: very lethargic Sensorium / Orientation: awake and alert Psych Psych Narrative: lethargic Assessment & Plan Assessment/Plan (1) Paroxysmal atrial fibrillation with RVR: (2) COVID: PLAN: #Afib * on PO metoprolol 50mg bid; patient still tachycardic, but I think this is due to her worsening respiratory state * on eliquis 5mg bid for thromboprophylaxis. * TSH was WNL * 2D echo: EF of 55% with normal LV systolic function and size. Normal mitral and tricuspid as well as aortic valves; pulmonic valve not well visualised * #Acute hypoxic respiratory failure due to COVID 19 pneumonia * now on BIPAP. Patient has deteriorated rapidly over the last couple of days * on decadro and remdesivir. * ID consulted to see if she qualifies for baricitinib. * Pulmonology also consulted. Patient started on IV Zosyn today empirically * transferred emergently to the ICU today due to worsening respiratory status. * We will obtain sputum cultures if she is able to expectorate. * Titrate oxygen to maintain saturation above 90%. WBC today is 15.8. * Patient is low risk for intubation. #COVID 19 pneumonia * management as above * #Hypokalemia: K is 3 today. Will replace and trend. #Type 2 diabetes mellitus * on lantus 31 units qhs. ISS. Accuchecks ACHS * #CAD: on statin, aspirin and plavix as well as atenolol DVT prophylaxis: on eliquis Code status: full code. Disposition: transferred to the ICU emergently due to worsening respiratory sta tus. Charges/Coding Visit Charges Inpatient E&M: 21459 Subs Hosp L3
[2021-07-01] MEDS: Potassium Chloride Oral Tablet 20 MEQ PO (15:33)
[2021-07-01] MEDS: FLUoxetine 20 MG Capsule 40 MG PO (15:35)
[2021-07-01] MEDS: Aspirin E.C. 81 MG Tablet PO (15:35)
[2021-07-01] MEDS: Clopidogrel Bisulfate 75 MG Tablet PO (15:35)
[2021-07-01] MEDS: Furosemide 40 MG Tablet PO (15:36)
[2021-07-01] MEDS: Metoprolol Tartrate 5 MG/5 ML Vial IV (15:46)
[2021-07-01] MEDS: NYSTATIN 500,000 UNIT/5 ML UDC 500000 UNIT PO ×2 (15:55→20:05)
[2021-07-01 15:58] LABS: AST(SGOT) 17 U/L (15-37); Alanine Aminotransfer ALT/SGPT 19 U/L (13-56); Albumin, Serum 1.8 g/dL (3.2-5.0); Alkaline Phosphatase 136 U/L (45-117); Bilirubin, Direct 0.46 mg/dL (0.00-0.30); Globulin 5.8 g/dL (2.2-4.2); Protein, Total 7.6 g/dL (6.4-8.2)
[2021-07-01 16:01] LABS: Bedside Glucose 257 mg/dL (70-110)
[2021-07-01 16:19] LABS: BNP,B-Type NATRIURETIC PEPTIDE 122.2 pg/mL (0-100)
[2021-07-01] MEDS: Acetaminophen 325 MG Tablet 650 MG PO (20:05)
[2021-07-01] MEDS: Atorvastatin Calcium 10 MG Tablet PO (20:06)
[2021-07-01] MEDS: APIXABAN 5 MG TABLET PO (20:06)
[2021-07-01 20:26] LABS: Bedside Glucose 263 mg/dL (70-110)
--- NOTE | 2021-07-01 21:42 | NURSING ---
pt sleeping at this time. pt woken up and bipap applied.
[2021-07-02] VITALS (39 sets, daily range): BP systolic 81–143; BP diastolic 63–100; PULSE 100–124; RESP 11–24; TEMP 35.9–37; O2SAT 90–98
[2021-07-02] MEDS: 0.9% Saline Lock 10 ML Syringe IV (04:26)
[2021-07-02] MEDS: Nystatin Powder 15gm Bottle 1 APPLIC TOPICAL ×3 (04:26→20:42)
[2021-07-02 04:48] LABS: Absolute Neutrophil Count 11.8 X10^3/uL (2.0-7.7); Basophil# 0.03 X10^3/uL; Basophil% 0.2 % (0-1); Eosinophils% 0.7 % (0-5); Hematocrit 40.6 % (37-47); Lymphocyte % 10.6 % (19-41); Mean Corpuscular Hgb 29.3 pg (27.0-32.0); Mean Corpuscular Volume 91.4 fL (81-99); Mean Platelet Vol. 10.7 fl (6.2-12.0); Monocyte# 0.57 X10^3/uL; NRBC Flagged by Analyzer 0 % (0-5); Neutrophil # 11.76 X10^3/uL (2.7-7.7); Platelet Count 331 K/mm3 (150-450); RBC Distribution Width CV 13.1 % (11.6-14.6); RBC Distribution Width SD 44.1 fl (35.1-43.9); Red Blood Count 4.44 M/mm3 (4.2-5.4); White Blood Count 14.2 K/mm3 (4.4-11.0)
[2021-07-02 05:03] LABS: Anion Gap 7 (5-15); BUN 35 mg/dL (7-18); Calcium,Total 8.6 mg/dL (8.5-10.1); Chloride 102 mmol/L (98-107); Creatinine, Serum 1.06 mg/dL (0.55-1.02); EST Glomerular Filtration Rate 55 mL/min (>60); Est Glom Filt Rate - Afr Amer 67 mL/min (>60); Estimated Creatinine Clearance 45.08 ml/min; Glucose 204 mg/dL (74-106); Potassium 3.2 mmol/L (3.5-5.1); Sodium Level 142 mmol/L (136-145)
--- NOTE | 2021-07-02 07:35 | PN.CC_ITS ---
Assessment & Plan Assessment/Plan (1) COVID: (2) Acute respiratory failure with hypoxia: (3) Paroxysmal atrial fibrillation with RVR: (4) Type 2 diabetes mellitus: PLAN: RECOMMENDATIONS: 1. Continue Lantus 2. Agree with aggressive diuresis 3. Potassium supplementation as tolerates 4. Attempt Airvo during the day with BiPAP with sleep 5. Wean supplemental oxygen as tolerated 6. Obtain panculture and initiate empiric antibiotics with fever IMPRESSIONS: 1. Acute hypoxic respiratory failure secondary to COVID-19 Unclear etiology for acute decompensation. Patient reportedly is negative for the hospitalization, but weight has not been checked in several days. Will add daily weights. We will hold on any additional doses of Lasix, but clinical suspicion is for an element of CHF given rapid response to BiPAP therapy. Delayed presentation limits ability/options for COVID-19 therapy. Patient is appropriately on Decadron through 07/06/2021. Patient appears to be responding to diuretic therapy. We will continue to diurese as tolerated. Okay to use Airvo during the day with BiPAP with sleep. 2. A. fib with RVR/CAD/acute on chronic diastolic CHF Patient does have a history of coronary artery disease and chronic Lasix therapy. EF was preserved previously. We will continue to control heart rate as possible. It does not appear that the patient has been seen by cardiology in consultation. Patient remains on anticoagulation, statin, aspirin and Plavix. Continue atenolol for now. Rate marginally controlled at this time. 3. Hypokalemia secondary to Lasix therapy Potassium supplementation has been ordered. May need to give an additional dose later today given active diuresis. Patient may have an element of osmotic diuresis secondary to hyperglycemia initially, but blood sugars are much better controlled at this time. 4. Uncontrolled diabetes mellitus Patient with severely elevated blood sugars at this time. Lantus will be continued. Patient is on Decadron therapy. 5. Morbid obesity/unvaccinated status/umbilical hernia/depression Complicates care, management, recovery and prognosis. Patient does not appear to have an acute abdomen at this time. Continue to reduce hernia if necessary. If unable to reduce, may need to reinvolve surgery. Subjective Subjective Patient did well overnight. Patient remains on high FiO2 requirements to maintain saturations. Patient did tolerate Airvo briefly yesterday, but was able to be transitioned this morning. Patient is comfortable on 60% Airvo. Remains in A. fib on telemetry. Objective Data Objective Data Vital Signs: Vital Signs Temp Pulse Resp BP Pulse Ox 36.6 C 111 H 23 H 124/97 H 98 07/02/21 04:00 07/02/21 07:00 07/02/21 07:00 07/02/21 07:00 07/02/21 07:03 Oxygen Flow Rate (L/min) 60 Oxygen Delivery Method Airvo Weight: 99.8 kg Body Mass Index (BMI) 39.9 Intake & Output: Intake and Output for Last 24 Hours 06/30/21 07/01/21 07/02/21 23:59 23:59 23:59 Intake Total 1010 / 1070 1310 / 1630 586.25 / 586.25 Output Total 1150 / 1700 1250 / 1650 1000 / 1000 Balance -140 / -630 60 / -20 -413.75 / -413.75 Lab / Micro Data Result Diagrams: 07/02/21 04:25 07/02/21 04:25 Labs: Laboratory Results - last 24 hr 07/01/21 07:12: WBC 15.8 H, RBC 4.92, Hgb 14.5, Hct 43.8, MCV 89.0, MCH 29.5, MCHC 33.1, RDW Std Deviation 42.7, RDW Coeff of Maritza 13.0, Plt Count 350, MPV 10.4, Immature Gran % (Auto) 0.900, Neut % (Auto) 89.6 H, Lymph % (Auto) 4.9 L, [place] % (Auto) 4.4, Eos % (Auto) 0.0, Baso % (Auto) 0.2, Absolute Neuts (auto) 14.2 H, Absolute Lymphs (auto) 0.77 L, Nucleated RBC % 0, Platelet Estimate ADEQUATE, Plt Morphology Comment LARGE 07/01/21 07:12: Sodium 139, Potassium 3.0 L, Chloride 100, Carbon Dioxide 30.0, Anion Gap 9, BUN 31 H, Creatinine 0.99, Estim Creat Clear Calc 48.27, Est GFR (MDRD) Af Amer 72, Est GFR (MDRD) Non-Af 59 L, BUN/Creatinine Ratio 31.2 H, Glucose 280 H, Calcium 8.8 07/01/21 11:13: POC Glucose 277 H 07/01/21 15:30: B-Natriuretic Peptide 122.2 H 07/01/21 15:30: Procalcitonin 0.20 H 07/01/21 15:30: Total Bilirubin 0.80, Direct Bilirubin 0.46 H, AST 17, ALT 19, Alkaline Phosphatase 136 H, C-React Prot Ext Range 110.00 H, Total Protein 7.6, Albumin 1.8 L, Globulin 5.8 H 07/01/21 15:30: POC Glucose 257 H 07/01/21 19:56: POC Glucose 263 H 07/02/21 04:25: WBC 14.2 H, RBC 4.44, Hgb 13.0, Hct 40.6, MCV 91.4, MCH 29.3, MCHC 32.0, RDW Std Deviation 44.1 H, RDW Coeff of [place]it[place] 13.1, Plt Count 331, MPV 10.7, Immature Gran % (Auto) 1.500 H, Neut % (Auto) 83.0 H, Lymph % (Auto) 10.6 L, [place] % (Auto) 4.0, Eos % (Auto) 0.7, Baso % (Auto) 0.2, Absolute Neuts (auto) 11.8 H, Absolute Lymphs (auto) 1.50, Nucleated RBC % 0 07/02/21 04:25: Sodium 142, Potassium 3.2 L, Chloride 102, Carbon Dioxide 33.0 H , Anion Gap 7, BUN 35 H, Creatinine 1.06 H, Estim Creat Clear Calc 45.08, Est GFR (MDRD) Af Amer 67, Est GFR (MDRD) Non-Af 55 L, BUN/Creatinine Ratio 33.0 H, Glucose 204 H, Calcium 8.6 Micro: Microbiology 06/28/21 12:25 Nasal Secretion SARS-CoV-2 Antigen (Rapid) - Final ABG Data ABG results: ABG 07/01/21 13:05 Specimen Type ART Sample Site R Radial pH 7.50 H Bicarbonate Actual 30.5 H Total CO2 32 Base Excess 7 H O2 Saturation 95 O2 % 85 ABG pCO2 39.1 ABG pO2 70 L Josh Test Positive Respiration Rate 12 O2 Delivery Device BiPAP Physical Exam Const alert, oriented x3 and no apparent distress Constitutional Narrative: patient is more responsive today General Appearance: cooperative Exam Limitations: no limitations Nutritional Appearance: obese HEENT normocephalic, head/scalp atraumatic, hearing grossly normal bilaterally and moist oral mucous membranes Head and Scalp: normocephalic Eyes PERRL, EOMs intact bilaterally and conjunctivae normal Neck no lymphadenopathy Resp Auscultation: diminished lung sounds; Negative for rales, rhonchi or wheezes Cardio S1 normal heart sound, S2 normal heart sound and no murmurs Cardio Narrative: afib, tachycardic GI normal to inspection, nondistended, normoactive bowel sounds, soft to palpation, non-tender and non-distended Extremity normal to inspection, full ROM and no clubbing, cyanosis or edema Peripheral Pulses: Yes pulses 2+ throughout Skin no rashes or lesions noted Neuro oriented x3, CN's II-XII intact bilaterally and moves all extremities Sensorium / Orientation: awake and alert Charges/Coding Visit Charges Inpatient E&M: 38646 Subs Hosp L3
[2021-07-02] MEDS: NYSTATIN 500,000 UNIT/5 ML UDC 500000 UNIT PO ×4 (08:48→20:39)
[2021-07-02] MEDS: Lisinopril 5 MG Tablet PO (08:48)
[2021-07-02] MEDS: Insulin Lispro 100 UNIT/ML INSULN.PEN SC ×4 (08:48→21:01)
[2021-07-02] MEDS: Furosemide 40 MG Tablet PO ×2 (08:49→16:59)
[2021-07-02] MEDS: dexAMETHasone 2 MG TABLET 6 MG PO (08:49)
[2021-07-02] MEDS: APIXABAN 5 MG TABLET PO ×2 (08:49→20:40)
[2021-07-02] MEDS: FLUoxetine 20 MG Capsule 40 MG PO (08:49)
[2021-07-02] MEDS: Aspirin E.C. 81 MG Tablet PO (08:49)
[2021-07-02] MEDS: Potassium Chloride Oral Tablet 20 MEQ PO ×2 (08:49→16:59)
[2021-07-02] MEDS: Metoprolol Tartrate 25 MG Tablet PO ×2 (08:50→20:39)
[2021-07-02] MEDS: Clopidogrel Bisulfate 75 MG Tablet PO (08:50)
[2021-07-02 09:00] LABS: Bedside Glucose 156 mg/dL (70-110)
[2021-07-02] MEDS: Potassium Chloride 10mEq/100mL 10 MEQ/100 ML IV.SOLN. 100 MEQ IV BOLUS ×4 (09:05→13:08)
--- NOTE | 2021-07-02 09:50 | CASEMGMT ---
Addendum entered by Anamika Allred 07/02/21 10:16: SW spoke w/Monica at [facility], she can review the referral. SW let her know that pt will be out of isolation as per Dr. Fuentes on 07/06/21. Referral faxed. SW spoke w/pt's daughter, let her know that SW made a referral to [facility] as SW aware that family prefers. Daughter confirmed that they would prefer [facility]. Pt's sister, Leda Maravilla, is a resident at [facility] at present as per daughter and they would like pt there as well. SW explained will let her know what [facility] says in regard to the referral; daughter expressed appreciation for SW sending referral. SW will continue to follow. DAMARIS Strange Original Note: SW participated in ICU rounds this morning. SW called [facility] to check on bed availability for pt when she is medically ready, as this had been pt and family's first choice but there was no availability last week. Message left, SW will speak w/Monica from [facility] when she calls back. DAMARIS Strange
[2021-07-02 10:24] LABS: AST(SGOT) 20 U/L (15-37); Alanine Aminotransfer ALT/SGPT 20 U/L (13-56); Albumin, Serum 1.7 g/dL (3.2-5.0); Alkaline Phosphatase 133 U/L (45-117); Bilirubin, Direct 0.52 mg/dL (0.00-0.30); Globulin 5.8 g/dL (2.2-4.2); Protein, Total 7.5 g/dL (6.4-8.2)
[2021-07-02] MEDS: Menthol/Lanolin/Calamine/Znox 113 GM Tube 1 APPLIC TOPICAL ×4 (11:40→20:44)
[2021-07-02 12:15] LABS: Bedside Glucose 265 mg/dL (70-110)
[2021-07-02 19:31] LABS: Bedside Glucose 355 mg/dL (70-110)
--- NOTE | 2021-07-02 19:54 | PCM.PN.HOSP ---
Subjective Subjective Patient was seen and examined today, she is currently on 45% oxygen, she does not complain of any shortness of breath or chest discomfort. She is currently on baricitinib, empiric Zosyn, and dexamethasone. Objective Data Objective Data Vital Signs: Vital Signs Temp Pulse Resp BP Pulse Ox 96.8 F L 118 H 22 H 129/81 H 93 07/02/21 16:00 07/02/21 19:42 07/02/21 19:00 07/02/21 19:00 07/02/21 19:00 Oxygen Flow Rate (L/min) 60 Oxygen Delivery Method Airvo Weight: 99.8 kg Body Mass Index (BMI) 39.9 Intake & Output: Intake and Output for Last 24 Hours 06/30/21 07/01/21 07/02/21 23:59 23:59 23:59 Intake Total 1010 / 1070 1310 / 1630 1816.25 / 1816.25 Output Total 1150 / 1700 1250 / 1650 2350 / 2350 Balance -140 / -630 60 / -20 -533.75 / -533.75 Lab / Micro Data Result Diagrams: 07/03/21 04:20 07/03/21 04:20 Labs: Laboratory Results - last 24 hr 07/01/21 19:56: POC Glucose 263 H 07/02/21 04:25: WBC 14.2 H, RBC 4.44, Hgb 13.0, Hct 40.6, MCV 91.4, MCH 29.3, MCHC 32.0, RDW Std Deviation 44.1 H, RDW Coeff of [place]it[place] 13.1, Plt Count 331, MPV 10.7, Immature Gran % (Auto) 1.500 H, Neut % (Auto) 83.0 H, Lymph % (Auto) 10.6 L, [place] % (Auto) 4.0, Eos % (Auto) 0.7, Baso % (Auto) 0.2, Absolute Neuts (auto) 11.8 H, Absolute Lymphs (auto) 1.50, Nucleated RBC % 0 07/02/21 04:25: Sodium 142, Potassium 3.2 L, Chloride 102, Carbon Dioxide 33.0 H, Anion Gap 7, BUN 35 H, Creatinine 1.06 H, Estim Creat Clear Calc 45.08, Est GFR (MDRD) Af Amer 67, Est GFR (MDRD) Non-Af 55 L, BUN/Creatinine Ratio 33.0 H, Glucose 204 H, Calcium 8.6 07/02/21 04:25: Total Bilirubin 0.90, Direct Bilirubin 0.52 H, AST 20, ALT 20, Alkaline Phosphatase 133 H, Total Protein 7.5, Albumin 1.7 L, Globulin 5.8 H 07/02/21 08:37: POC Glucose 156 H 07/02/21 11:42: POC Glucose 265 H 07/02/21 16:58: POC Glucose 355 H Micro: Microbiology 06/28/21 12:25 Nasal Secretion SARS-CoV-2 Antigen (Rapid) - Final Physical Exam Const alert, oriented x3, no apparent distress and healthy appearing General Appearance: cooperative, well kempt and well developed Orientation / Consciousness: awake, oriented to person, oriented to place and oriented to time HEENT normocephalic, head/scalp atraumatic and moist oral mucous membranes Head and Scalp: normocephalic Eyes PERRL, EOMs intact bilaterally and conjunctivae normal Neck nuchal rigidity, supple, no JVD, thyroid normal and no carotid bruits General: trachea midline Resp normal respiratory effort, no retractions, no use of accessory muscles and clear to auscultation bilaterally Auscultation: Negative for rales, rhonchi or wheezes Cardio regular rate, regular rhythm, S1 normal heart sound, S2 normal heart sound, no murmurs, no rub and no gallops GI normal to inspection, nondistended, normoactive bowel sounds, soft to palpation, non-tender and non-distended Extremity no clubbing, cyanosis or edema Skin no rashes or lesions noted General Skin Exam: no breakdown Neuro oriented x3, CN's II-XII intact bilaterally, no focal motor deficits and no sensory deficits noted Sensorium / Orientation: awake and alert Speech: speech normal Psych thought process normal and affect normal Assessment & Plan Assessment/Plan (1) COVID: PLAN: 1. COVID-19 pneumonia-patient is on Decadron and remdesivir as well as baricitinib, pulmonary medicine and infectious diseases is participating in her care #2 acute hypoxic respiratory failure secondary to #1-patient's pulse ox will be monitored #3 new onset atrial fibrillation-patient is currently anticoagulated on Eliquis, patient has normal LV function on echocardiogram, patient is on metoprolol for rate control #4 type 2 diabetes-blood sugars monitored #5 acute on chronic diastolic CHF-patient is on Lasix presently #6 hypokalemia-potassium replacement has been ordered #7 coronary artery disease Charges/Coding Visit Charges Inpatient E&M: 80004 Subs Hosp L2
[2021-07-02] MEDS: Atorvastatin Calcium 10 MG Tablet PO (20:40)
[2021-07-02 21:11] LABS: Bedside Glucose 382 mg/dL (70-110)
[2021-07-03] VITALS (33 sets, daily range): BP systolic 99–148; BP diastolic 60–101; PULSE 97–120; RESP 12–24; TEMP 36.1–36.3; O2SAT 90–98
[2021-07-03 04:33] LABS: Absolute Lymphocyte Count 1.38 X10^3/uL (0.83-4.51); Absolute Neutrophil Count 19.6 X10^3/uL (2.0-7.7); Basophil# 0.08 X10^3/uL; Basophil% 0.4 % (0-1); Eosinophil# 0.16 X10^3/uL; Eosinophils% 0.7 % (0-5); Hematocrit 41.1 % (37-47); Hemoglobin 13.1 g/dL (12.0-15.0); Lymphocyte # 1.38 X10^3/ul (0.83-4.51); Lymphocyte % 6.2 % (19-41); Mean Corp Hgb Conc 31.9 g/dL (32-36); Mean Corpuscular Hgb 28.9 pg (27.0-32.0); Mean Corpuscular Volume 90.5 fL (81-99); Mean Platelet Vol. 10.5 fl (6.2-12.0); Monocyte# 0.87 X10^3/uL; Monocyte% 3.9 % (0-10); NRBC Flagged by Analyzer 0 % (0-5); Neutrophil # 19.58 X10^3/uL (2.7-7.7); Neutrophil % 87.4 % (47-70); Platelet Count 367 K/mm3 (150-450); RBC Distribution Width CV 12.9 % (11.6-14.6); RBC Distribution Width SD 42.6 fl (35.1-43.9); Red Blood Count 4.54 M/mm3 (4.2-5.4); White Blood Count 22.4 K/mm3 (4.4-11.0)
[2021-07-03 04:47] LABS: ALB/GLOB Ratio 0.3 RATIO (0.9-2.4); AST(SGOT) 15 U/L (15-37); Alanine Aminotransfer ALT/SGPT 17 U/L (13-56); Albumin, Serum 1.8 g/dL (3.2-5.0); Alkaline Phosphatase 147 U/L (45-117); Anion Gap 6 (5-15); BUN 26 mg/dL (7-18); BUN/Creat Ratio 26.2 RATIO (10-20); Calcium,Total 8.8 mg/dL (8.5-10.1); Chloride 98 mmol/L (98-107); Creatinine, Serum 0.99 mg/dL (0.55-1.02); EST Glomerular Filtration Rate 59 mL/min (>60); Est Glom Filt Rate - Afr Amer 72 mL/min (>60); Estimated Creatinine Clearance 48.27 ml/min; Globulin 6.1 g/dL (2.2-4.2); Glucose 191 mg/dL (74-106); Potassium 3.7 mmol/L (3.5-5.1); Protein, Total 7.9 g/dL (6.4-8.2); Sodium Level 139 mmol/L (136-145)
[2021-07-03] MEDS: Nystatin Powder 15gm Bottle 1 APPLIC TOPICAL ×3 (06:26→20:41)
--- NOTE | 2021-07-03 07:25 | PCM.PN.INT ---
Assessment & Plan Assessment/Plan (1) COVID: (2) Acute respiratory failure with hypoxia: (3) Paroxysmal atrial fibrillation with RVR: (4) Type 2 diabetes mellitus: PLAN: RECOMMENDATIONS: 1. Continue Lantus 2. Agree with aggressive diuresis. Potassium supplementation if indicated 3. Attempt nasal cannula during the day 4. Continue BiPAP with all sleep 5. Wean supplemental oxygen as tolerated 6. Obtain panculture and initiate empiric antibiotics with fever 7. Likely okay to leave the intensive care unit from my perspective IMPRESSIONS: 1. Acute hypoxic respiratory failure secondary to COVID-19 Unclear etiology for acute decompensation. Patient reportedly is negative for the hospitalization, but weight has not been checked in several days. Will add daily weights. We will hold on any additional doses of Lasix, but clinical suspicion is for an element of CHF given rapid response to BiPAP therapy. Delayed presentation limits ability/options for COVID-19 therapy. Patient is appropriately on Decadron through 07/06/2021. Patient appears to be responding to diuretic therapy. We will continue to diurese as tolerated. Okay to use nasal cannula during the day with BiPAP with sleep. 2. A. fib with RVR/CAD/acute on chronic diastolic CHF Patient does have a history of coronary artery disease and chronic Lasix therapy. EF was preserved previously. We will continue to control heart rate as possible. It does not appear that the patient has been seen by cardiology in consultation. Patient remains on anticoagulation, statin, aspirin and Plavix. Continue atenolol for now. Rate marginally controlled at this time. 3. Hypokalemia secondary to Lasix therapy Potassium supplementation has been ordered. Appears to be controlled at this time 4. Uncontrolled diabetes mellitus Patient with severely elevated blood sugars previously. Lantus will be continued. Patient is on Decadron therapy. Blood sugars appear to be well controlled at this time. 5. Morbid obesity/unvaccinated status/umbilical hernia/depression Complicates care, management, recovery and prognosis. Patient does not appear to have an acute abdomen at this time. Continue to reduce hernia if necessary. If unable to reduce, may need to reinvolve surgery. Umbilical hernia will likely need to be addressed as an outpatient Subjective Subjective Patient did okay overnight. No acute issues are reported. Patient subjectively feels somewhat improved compared to previous. Patient remains in A. fib, but rate is relatively controlled. No palpitations reported. Objective Data Objective Data Vital Signs: Vital Signs Temp Pulse Resp BP Pulse Ox 36.2 C L 108 H 19 H 127/79 H 92 07/03/21 06:00 07/03/21 07:00 07/03/21 07:00 07/03/21 07:00 07/03/21 07:00 Oxygen Flow Rate (L/min) 40 Oxygen Delivery Method Airvo Weight: 101.8 kg Body Mass Index (BMI) 39.9 Intake & Output: Intake and Output for Last 24 Hours 07/01/21 07/02/21 07/03/21 23:59 23:59 23:59 Intake Total 1310 / 1630 1926.25 / 2126.25 550 / 550 Output Total 1250 / 1650 2350 / 2350 1200 / 1200 Balance 60 / -20 -423.75 / -223.75 -650 / -650 Lab / Micro Data Result Diagrams: 07/03/21 04:20 07/03/21 04:20 Labs: Laboratory Results - last 24 hr 07/02/21 04:25: Total Bilirubin 0.90, Direct Bilirubin 0.52 H, AST 20, ALT 20, Alkaline Phosphatase 133 H, Total Protein 7.5, Albumin 1.7 L, Globulin 5.8 H 07/02/21 08:37: POC Glucose 156 H 07/02/21 11:42: POC Glucose 265 H 07/02/21 16:58: POC Glucose 355 H 07/02/21 20:56: POC Glucose 382 H 07/03/21 04:20: WBC 22.4 H, RBC 4.54, Hgb 13.1, Hct 41.1, MCV 90.5, MCH 28.9, MCHC 31.9 L, RDW Std Deviation 42.6, RDW Coeff of Maritza 12.9, Plt Count 367, MPV 10.5, Immature Gran % (Auto) 1.400 H, Neut % (Auto) 87.4 H, Lymph % (Auto) 6.2 L, [place] % (Auto) 3.9, Eos % (Auto) 0.7, Baso % (Auto) 0.4, Absolute Neuts (auto) 19.6 H, Absolute Lymphs (auto) 1.38, Nucleated RBC % 0 07/03/21 04:20: Sodium 139, Potassium 3.7, Chloride 98, Carbon Dioxide 35.0 H, Anion Gap 6, BUN 26 H, Creatinine 0.99, Estim Creat Clear Calc 48.27, Est GFR (MDRD) Af Amer 72, Est GFR (MDRD) Non-Af 59 L, BUN/Creatinine Ratio 26.2 H, Glucose 191 H, Calcium 8.8, Total Bilirubin 0.90, AST 15, ALT 17, Alkaline Phosphatase 147 H, Total Protein 7.9, Albumin 1.8 L, Globulin 6.1 H, Albumin/Globulin Ratio 0.3 L Micro: Microbiology 06/28/21 12:25 Nasal Secretion SARS-CoV-2 Antigen (Rapid) - Final Physical Exam Const alert, oriented x3 and no apparent distress Constitutional Narrative: Patient appears to be at baseline mentation General Appearance: cooperative Exam Limitations: no limitations Nutritional Appearance: obese HEENT normocephalic, head/scalp atraumatic, hearing grossly normal bilaterally and moist oral mucous membranes Head and Scalp: normocephalic Eyes PERRL, EOMs intact bilaterally and conjunctivae normal Neck no lymphadenopathy Resp Auscultation: diminished lung sounds; Negative for rales, rhonchi or wheezes Cardio S1 normal heart sound, S2 normal heart sound and no murmurs Cardio Narrative: afib, tachycardic GI normal to inspection, nondistended, normoactive bowel sounds, soft to palpation, non-tender and non-distended Extremity normal to inspection, full ROM and no clubbing, cyanosis or edema Peripheral Pulses: Yes pulses 2+ throughout Skin no rashes or lesions noted Neuro oriented x3, CN's II-XII intact bilaterally and moves all extremities Sensorium / Orientation: awake and alert Charges/Coding Visit Charges Inpatient E&M: 12969 Subs Hosp L2
[2021-07-03] MEDS: FLUoxetine 20 MG Capsule 40 MG PO (08:11)
[2021-07-03] MEDS: APIXABAN 5 MG TABLET PO ×2 (08:12→20:25)
[2021-07-03] MEDS: dexAMETHasone 2 MG TABLET 6 MG PO (08:12)
[2021-07-03] MEDS: Metoprolol Tartrate 25 MG Tablet PO (08:12)
[2021-07-03] MEDS: Furosemide 40 MG Tablet PO ×2 (08:12→16:57)
[2021-07-03] MEDS: NYSTATIN 500,000 UNIT/5 ML UDC 500000 UNIT PO ×4 (08:12→20:25)
[2021-07-03] MEDS: Clopidogrel Bisulfate 75 MG Tablet PO (08:13)
[2021-07-03] MEDS: Aspirin E.C. 81 MG Tablet PO (08:13)
[2021-07-03] MEDS: Lisinopril 5 MG Tablet PO (08:13)
[2021-07-03] MEDS: Menthol/Lanolin/Calamine/Znox 113 GM Tube 1 APPLIC TOPICAL ×4 (08:14→20:26)
[2021-07-03 08:55] LABS: Bedside Glucose 140 mg/dL (70-110)
--- NOTE | 2021-07-03 09:55 | CASEMGMT ---
Social Work SW attended ICU rounds. SW spoke with Monica from the [facility]. Monica states they will be able to accept pt when she improves with breathing and after pt comes out of isolation on 07/06. Phone call to pt dgt Aundrea and updated that pt has been accepted to the [facility], discharge is dependent on medical improvement. SW will continue to follow. JIHAN Sahu
[2021-07-03 10:56] LABS: Bedside Glucose 136 mg/dL (70-110)
--- NOTE | 2021-07-03 16:55 | PN.HOSP_ITS ---
Subjective Subjective Patient was seen and examined today, she is presently on 7 L of oxygen via nasal cannula, she remains in atrial fibrillation with her heart rate in the low 100s. Patient denies any chest discomfort or any dyspnea at rest. Objective Data Objective Data Vital Signs: Vital Signs Temp Pulse Resp BP Pulse Ox 97 F L 114 H 18 115/85 H 98 07/03/21 12:00 07/03/21 15:52 07/03/21 15:00 07/03/21 15:00 07/03/21 15:39 Oxygen Flow Rate (L/min) 7 Oxygen Delivery Method Nasal Cannula Weight: 101.8 kg Body Mass Index (BMI) 39.9 Intake & Output: Intake and Output for Last 24 Hours 07/01/21 07/02/21 07/03/21 23:59 23:59 23:59 Intake Total 1310 / 1630 1926.25 / 2126.25 1143.75 / 1143.75 Output Total 1250 / 1650 2350 / 2350 1850 / 1850 Balance 60 / -20 -423.75 / -223.75 -706.25 / -706.25 Lab / Micro Data Result Diagrams: 07/03/21 04:20 07/03/21 04:20 Labs: Laboratory Results - last 24 hr 07/02/21 16:58: POC Glucose 355 H 07/02/21 20:56: POC Glucose 382 H 07/03/21 04:20: WBC 22.4 H, RBC 4.54, Hgb 13.1, Hct 41.1, MCV 90.5, MCH 28.9, MCHC 31.9 L, RDW Std Deviation 42.6, RDW Coeff of Maritza 12.9, Plt Count 367, MPV 10.5, Immature Gran % (Auto) 1.400 H, Neut % (Auto) 87.4 H, Lymph % (Auto) 6.2 L , [place] % (Auto) 3.9, Eos % (Auto) 0.7, Baso % (Auto) 0.4, Absolute Neuts (auto) 19.6 H, Absolute Lymphs (auto) 1.38, Nucleated RBC % 0 07/03/21 04:20: Sodium 139, Potassium 3.7, Chloride 98, Carbon Dioxide 35.0 H, Anion Gap 6, BUN 26 H, Creatinine 0.99, Estim Creat Clear Calc 48.27, Est GFR (MDRD) Af Amer 72, Est GFR (MDRD) Non-Af 59 L, BUN/Creatinine Ratio 26.2 H, Glucose 191 H, Calcium 8.8, Total Bilirubin 0.90, AST 15, ALT 17, Alkaline Phosphatase 147 H, Total Protein 7.9, Albumin 1.8 L, Globulin 6.1 H, Albumin/Globulin Ratio 0.3 L 07/03/21 08:11: POC Glucose 140 H 07/03/21 10:46: POC Glucose 136 H Micro: Microbiology 06/28/21 12:25 Nasal Secretion SARS-CoV-2 Antigen (Rapid) - Final Physical Exam Const alert, oriented x3, no apparent distress and healthy appearing General Appearance: cooperative, well kempt and well developed Orientation / Consciousness: awake, oriented to person, oriented to place and oriented to time HEENT normocephalic, head/scalp atraumatic and moist oral mucous membranes Head and Scalp: normocephalic Eyes PERRL, EOMs intact bilaterally and conjunctivae normal Neck nuchal rigidity, supple, no JVD, thyroid normal and no carotid bruits General: trachea midline Resp normal respiratory effort, no retractions, no use of accessory muscles and clear to auscultation bilaterally Auscultation: Negative for rales, rhonchi or wheezes Cardio S1 normal heart sound, S2 normal heart sound, no murmurs, no rub and no gallops Cardio Narrative: Heart rate and rhythm is irregular GI normal to inspection, nondistended, normoactive bowel sounds, soft to palpation, non-tender and non-distended Extremity no clubbing, cyanosis or edema Skin no rashes or lesions noted General Skin Exam: no breakdown Neuro oriented x3, CN's II-XII intact bilaterally, no focal motor deficits and no sensory deficits noted Sensorium / Orientation: awake and alert Speech: speech normal Psych thought process normal and affect normal Assessment & Plan Assessment/Plan (1) COVID: PLAN: 1. COVID-19 pneumonia-patient is on Decadron and baricitinib, pulmonary medicine and infectious diseases is participating in her care #2 acute hypoxic respiratory failure secondary to #1-patient's pulse ox will be monitored #3 new onset atrial fibrillation-patient is currently anticoagulated on Eliquis, patient has normal LV function on echocardiogram, patient is on metoprolol for rate control, I will increase the dosage today #4 type 2 diabetes-blood sugars monitored #5 acute on chronic diastolic CHF-patient is on Lasix presently #6 hypokalemia-resolved #7 coronary artery disease Charges/Coding Visit Charges Inpatient E&M: 81108 Subs Hosp L2
[2021-07-03] MEDS: Insulin Lispro 100 UNIT/ML INSULN.PEN SC ×2 (16:56→20:32)
[2021-07-03 17:11] LABS: Bedside Glucose 286 mg/dL (70-110)
[2021-07-03] MEDS: Metoprolol Tartrate 50 MG Tablet PO (20:25)
[2021-07-03] MEDS: Atorvastatin Calcium 10 MG Tablet PO (20:25)
[2021-07-03 20:50] LABS: Bedside Glucose 227 mg/dL (70-110)
[2021-07-04] VITALS (24 sets, daily range): BP systolic 92–124; BP diastolic 57–100; PULSE 16–108; RESP 12–22; TEMP 36.1–36.6; O2SAT 90–95
[2021-07-04] MEDS: Nystatin Powder 15gm Bottle 1 APPLIC TOPICAL ×3 (04:58→23:26)
[2021-07-04 05:06] LABS: Absolute Lymphocyte Count 1.36 X10^3/uL (0.83-4.51); Absolute Neutrophil Count 20.2 X10^3/uL (2.0-7.7); Basophil# 0.08 X10^3/uL; Basophil% 0.3 % (0-1); Eosinophil# 0.16 X10^3/uL; Eosinophils% 0.7 % (0-5); Hemoglobin 12.4 g/dL (12.0-15.0); Lymphocyte # 1.36 X10^3/ul (0.83-4.51); Lymphocyte % 5.8 % (19-41); Mean Corp Hgb Conc 32.6 g/dL (32-36); Mean Corpuscular Hgb 29.5 pg (27.0-32.0); Mean Corpuscular Volume 90.3 fL (81-99); Mean Platelet Vol. 10.5 fl (6.2-12.0); Monocyte# 1.12 X10^3/uL; Monocyte% 4.8 % (0-10); NRBC Flagged by Analyzer 0 % (0-5); Neutrophil # 20.17 X10^3/uL (2.7-7.7); Neutrophil % 85.8 % (47-70); POSITIVE DIFFERENTIAL YES; Platelet Count 366 K/mm3 (150-450); RBC Distribution Width CV 12.7 % (11.6-14.6); RBC Distribution Width SD 42.3 fl (35.1-43.9); Red Blood Count 4.21 M/mm3 (4.2-5.4); White Blood Count 23.5 K/mm3 (4.4-11.0)
[2021-07-04 05:07] LABS: Differential Indicated SCAN CRITERIA MET
[2021-07-04 05:25] LABS: ALB/GLOB Ratio 0.3 RATIO (0.9-2.4); AST(SGOT) 16 U/L (15-37); Alanine Aminotransfer ALT/SGPT 18 U/L (13-56); Albumin, Serum 1.6 g/dL (3.2-5.0); Alkaline Phosphatase 143 U/L (45-117); Anion Gap 7 (5-15); BUN 24 mg/dL (7-18); BUN/Creat Ratio 27.6 RATIO (10-20); Calcium,Total 8.6 mg/dL (8.5-10.1); Chloride 98 mmol/L (98-107); Creatinine, Serum 0.87 mg/dL (0.55-1.02); EST Glomerular Filtration Rate 69 mL/min (>60); Est Glom Filt Rate - Afr Amer 84 mL/min (>60); Estimated Creatinine Clearance 54.93 ml/min; Globulin 6.1 g/dL (2.2-4.2); Glucose 139 mg/dL (74-106); Potassium 3.2 mmol/L (3.5-5.1); Protein, Total 7.7 g/dL (6.4-8.2); Sodium Level 138 mmol/L (136-145)
[2021-07-04] MEDS: Potassium Chloride Oral Soln 20 MEQ/15 ML UDC 40 MEQ PO (06:09)
[2021-07-04 06:20] LABS: Differential Comment SCANNED
--- NOTE | 2021-07-04 06:56 | PCM.PN.INT ---
Assessment & Plan Assessment/Plan (1) COVID: (2) Acute respiratory failure with hypoxia: (3) Paroxysmal atrial fibrillation with RVR: (4) Type 2 diabetes mellitus: PLAN: RECOMMENDATIONS: 1. Continue Lantus at current dosing until Decadron discontinued 2. Agree with aggressive diuresis. Schedule potassium supplementation 3. Wean nasal cannula as tolerated. 4. Continue BiPAP with all sleep 5. Wean supplemental oxygen as tolerated 6. Okay to leave the intensive care unit IMPRESSIONS: 1. Acute hypoxic respiratory failure secondary to COVID-19 Unclear etiology for acute decompensation. Patient reportedly is negative for the hospitalization, but weight has not been checked in several days. Will add daily weights. We will hold on any additional doses of Lasix, but clinical suspicion is for an element of CHF given rapid response to BiPAP therapy. Delayed presentation limits ability/options for COVID-19 therapy. Patient is appropriately on Decadron through 07/06/2021. Patient appears to be responding to diuretic therapy. We will continue to diurese as tolerated. Okay to use nasal cannula during the day and BiPAP with sleep. 2. A. fib with RVR/CAD/acute on chronic diastolic CHF Patient does have a history of coronary artery disease and chronic Lasix therapy. EF was preserved previously. We will continue to control heart rate as possible. It does not appear that the patient has been seen by cardiology in consultation. Patient remains on anticoagulation, statin, aspirin and Plavix. Continue atenolol for now. Rate better controlled at this time. 3. Hypokalemia secondary to Lasix therapy Potassium supplementation has been scheduled. Appears to be controlled at this time 4. Uncontrolled diabetes mellitus Patient with severely elevated blood sugars previously. Lantus will be continued. Patient is on Decadron therapy until 07/06/2021. Blood sugars appear to be well controlled at this time. 5. Morbid obesity/unvaccinated status/umbilical hernia/depression Complicates care, management, recovery and prognosis. Patient does not appear to have an acute abdomen at this time. Continue to reduce hernia if necessary. If unable to reduce, may need to reinvolve surgery. Umbilical hernia will likely need to be addressed as an outpatient Subjective Subjective Patient did okay overnight. No acute issues were reported. Patient has been maintained on 4 L nasal cannula. Patient continues to work with therapy to increase activity. Patient has had a cough. Objective Data Objective Data Vital Signs: Vital Signs Temp Pulse Resp BP Pulse Ox 36.1 C L 99 16 94/72 95 07/04/21 05:00 07/04/21 06:00 07/04/21 06:00 07/04/21 06:00 07/04/21 06:00 Oxygen Flow Rate (L/min) 4 Oxygen Delivery Method Nasal Cannula Weight: 100.8 kg Body Mass Index (BMI) 39.9 Intake & Output: Intake and Output for Last 24 Hours 07/02/21 07/03/21 07/04/21 23:59 23:59 23:59 Intake Total 1926.25 / 2126.25 1553.75 / 1673.75 290 / 290 Output Total 2350 / 2350 2300 / 2950 950 / 950 Balance -423.75 / -223.75 -746.25 / -1276.25 -660 / -660 Lab / Micro Data Result Diagrams: 07/04/21 04:50 07/04/21 04:50 Labs: Laboratory Results - last 24 hr 07/03/21 08:11: POC Glucose 140 H 07/03/21 10:46: POC Glucose 136 H 07/03/21 16:55: POC Glucose 286 H 07/03/21 20:34: POC Glucose 227 H 07/04/21 04:50: WBC 23.5 H, RBC 4.21, Hgb 12.4, Hct 38.0, MCV 90.3, MCH 29.5, MCHC 32.6, RDW Std Deviation 42.3, RDW Coeff of Maritza 12.7, Plt Count 366, MPV 10.5, Immature Gran % (Auto) 2.600 H, Neut % (Auto) 85.8 H, Lymph % (Auto) 5.8 L, [place] % (Auto) 4.8, Eos % (Auto) 0.7, Baso % (Auto) 0.3, Absolute Neuts (auto) 20.2 H, Absolute Lymphs (auto) 1.36, Nucleated RBC % 0, Differential Comment SCANNED 07/04/21 04:50: Sodium 138, Potassium 3.2 L, Chloride 98, Carbon Dioxide 33.0 H, Anion Gap 7, BUN 24 H, Creatinine 0.87, Estim Creat Clear Calc 54.93, Est GFR (MDRD) Af Amer 84, Est GFR (MDRD) Non-Af 69, BUN/Creatinine Ratio 27.6 H, Glucose 139 H, Calcium 8.6, Total Bilirubin 0.90, AST 16, ALT 18, Alkaline Phosphatase 143 H, Total Protein 7.7, Albumin 1.6 L, Globulin 6.1 H, Albumin/Globulin Ratio 0.3 L Micro: Microbiology 06/28/21 12:25 Nasal Secretion SARS-CoV-2 Antigen (Rapid) - Final Physical Exam Const alert, oriented x3 and no apparent distress Constitutional Narrative: Patient appears to be at baseline mentation on nasal cannula General Appearance: cooperative Exam Limitations: no limitations Nutritional Appearance: obese HEENT normocephalic, head/scalp atraumatic, hearing grossly normal bilaterally and moist oral mucous membranes Head and Scalp: normocephalic Eyes PERRL, EOMs intact bilaterally and conjunctivae normal Neck no lymphadenopathy Resp Auscultation: diminished lung sounds; Negative for rales, rhonchi or wheezes Cardio S1 normal heart sound, S2 normal heart sound and no murmurs Cardio Narrative: afib, better rate control GI normal to inspection, nondistended, normoactive bowel sounds, soft to palpation, non-tender and non-distended Extremity normal to inspection, full ROM and no clubbing, cyanosis or edema Peripheral Pulses: Yes pulses 2+ throughout Skin no rashes or lesions noted Neuro oriented x3, CN's II-XII intact bilaterally and moves all extremities Sensorium / Orientation: awake and alert Charges/Coding Visit Charges Inpatient E&M: 42076 Subs Hosp L2
[2021-07-04] MEDS: dexAMETHasone 2 MG TABLET 6 MG PO (09:02)
[2021-07-04] MEDS: APIXABAN 5 MG TABLET PO ×2 (09:03→23:09)
[2021-07-04] MEDS: Aspirin E.C. 81 MG Tablet PO (09:03)
[2021-07-04] MEDS: Menthol/Lanolin/Calamine/Znox 113 GM Tube 1 APPLIC TOPICAL ×4 (09:03→23:14)
[2021-07-04] MEDS: Metoprolol Tartrate 50 MG Tablet PO ×2 (09:04→23:09)
[2021-07-04] MEDS: Furosemide 40 MG Tablet PO ×2 (09:04→16:50)
[2021-07-04] MEDS: NYSTATIN 500,000 UNIT/5 ML UDC 500000 UNIT PO ×4 (09:04→23:09)
[2021-07-04] MEDS: Clopidogrel Bisulfate 75 MG Tablet PO (09:05)
[2021-07-04] MEDS: FLUoxetine 20 MG Capsule 40 MG PO (09:05)
[2021-07-04] MEDS: Lisinopril 5 MG Tablet PO (09:05)
[2021-07-04 09:21] LABS: Bedside Glucose 111 mg/dL (70-110)
--- NOTE | 2021-07-04 10:33 | PCM.PN.ID ---
Physical Exam Narrative Feeling much better, no fever, no n/v/d Const alert and no apparent distress General Appearance: cooperative Resp clear to auscultation bilaterally Auscultation: diminished lung sounds Cardio regular rate and regular rhythm GI normal to inspection, nondistended, normoactive bowel sounds Skin no rashes or lesions noted ID ID: Route of nutrition/ use of supplements: [] Nutritional Intake: [] IV Site: [] Rich Catheter: [] Assessment & Plan Assessment/Plan (1) Acute respiratory failure with hypoxia: (2) COVID: PLAN: Unvaccinated, sx started around 06/16. Isolate for 20 days. On dex, completed remdesivir. Worsening O2, started baricitinib. Now much improved, moving out of icu. On zosyn, plan on stop tomorrow. Will follow
[2021-07-04] MEDS: Insulin Lispro 100 UNIT/ML INSULN.PEN SC ×2 (11:30→16:53)
[2021-07-04 11:50] LABS: Bedside Glucose 278 mg/dL (70-110)
--- NOTE | 2021-07-04 11:53 | CASEMGMT ---
Social Work GERMANIA spoke with Monica at [facility] inquiring if they can accept pt prior to coming out of isolation. Monica requested to review clinical updates and then she will let GERMANIA know. Clinicals faxed. Monica informed that pt transferred out of ICU today and she can contact [facility]ER[facility] with determination of acceptance date. Handoff to [facility]. JIHAN Sahu
--- NOTE | 2021-07-04 15:32 | NURSING ---
This RN received report from Emil Win RN. Will be taking over pt care at this time.
[2021-07-04] MEDS: metFORMIN (XR) 500 MG Tablet PO (16:50)
[2021-07-04] MEDS: Acetaminophen 325 MG Tablet 650 MG PO (17:02)
[2021-07-04 17:05] LABS: Bedside Glucose 288 mg/dL (70-110)
--- NOTE | 2021-07-04 19:06 | PCM.PN.HOSP ---
Subjective Subjective Patient was seen and examined today, she was moved to PCU for further care, she is currently on 6 L via nasal cannula and does not complain of any shortness of breath at rest, she appears to be comfortable Objective Data Objective Data Vital Signs: Vital Signs Temp Pulse Resp BP Pulse Ox 97.6 F L 100 18 121/76 H 95 07/04/21 16:58 07/04/21 16:58 07/04/21 16:58 07/04/21 16:58 07/04/21 16:58 Oxygen Flow Rate (L/min) 6 Oxygen Delivery Method Nasal Cannula Weight: 100.8 kg Body Mass Index (BMI) 39.9 Intake & Output: Intake and Output for Last 24 Hours 07/02/21 07/03/21 07/04/21 23:59 23:59 23:59 Intake Total 1926.25 / 2126.25 1553.75 / 1673.75 1020 / 1020 Output Total 2350 / 2350 2300 / 2950 1450 / 1450 Balance -423.75 / -223.75 -746.25 / -1276.25 -430 / -430 Lab / Micro Data Result Diagrams: 07/05/21 06:00 07/05/21 06:00 Labs: Laboratory Results - last 24 hr 07/03/21 20:34: POC Glucose 227 H 07/04/21 04:50: WBC 23.5 H, RBC 4.21, Hgb 12.4, Hct 38.0, MCV 90.3, MCH 29.5, MCHC 32.6, RDW Std Deviation 42.3, RDW Coeff of Maritza 12.7, Plt Count 366, MPV 10.5, Immature Gran % (Auto) 2.600 H, Neut % (Auto) 85.8 H, Lymph % (Auto) 5.8 L, [place] % (Auto) 4.8, Eos % (Auto) 0.7, Baso % (Auto) 0.3, Absolute Neuts (auto) 20.2 H, Absolute Lymphs (auto) 1.36, Nucleated RBC % 0, Differential Comment SCANNED 07/04/21 04:50: Sodium 138, Potassium 3.2 L, Chloride 98, Carbon Dioxide 33.0 H, Anion Gap 7, BUN 24 H, Creatinine 0.87, Estim Creat Clear Calc 54.93, Est GFR (MDRD) Af Amer 84, Est GFR (MDRD) Non-Af 69, BUN/Creatinine Ratio 27.6 H, Glucose 139 H, Calcium 8.6, Total Bilirubin 0.90, AST 16, ALT 18, Alkaline Phosphatase 143 H, Total Protein 7.7, Albumin 1.6 L, Globulin 6.1 H, Albumin/Globulin Ratio 0.3 L 07/04/21 08:48: POC Glucose 111 H 07/04/21 11:29: POC Glucose 278 H 07/04/21 16:49: POC Glucose 288 H Micro: Microbiology 06/28/21 12:25 Nasal Secretion SARS-CoV-2 Antigen (Rapid) - Final Physical Exam Const alert, oriented x3, no apparent distress and healthy appearing General Appearance: cooperative, well kempt and well developed Orientation / Consciousness: awake, oriented to person, oriented to place and oriented to time HEENT normocephalic, head/scalp atraumatic and moist oral mucous membranes Head and Scalp: normocephalic Eyes PERRL, EOMs intact bilaterally and conjunctivae normal Neck nuchal rigidity, supple, no JVD and thyroid normal General: trachea midline Resp normal respiratory effort, no retractions, no use of accessory muscles and clear to auscultation bilaterally Auscultation: Negative for rales, rhonchi or wheezes Cardio regular rate, regular rhythm, S1 normal heart sound, S2 normal heart sound, no murmurs, no rub and no gallops GI normal to inspection, nondistended, normoactive bowel sounds, soft to palpation, non-tender and non-distended Extremity no clubbing, cyanosis or edema Skin no rashes or lesions noted General Skin Exam: no breakdown Neuro oriented x3, CN's II-XII intact bilaterally, no focal motor deficits and no sensory deficits noted Sensorium / Orientation: awake and alert Speech: speech normal Psych thought process normal and affect normal Assessment & Plan Assessment/Plan (1) Acute respiratory failure with hypoxia: (2) COVID: PLAN: 1. COVID-19 pneumonia-patient is on Decadron and baricitinib, pulmonary medicine and infectious diseases is participating in her care, patient's Zosyn will be stopped on 07/05/2021. #2 acute hypoxic respiratory failure secondary to #1-patient's pulse ox will be monitored #3 new onset atrial fibrillation-patient is currently anticoagulated on Eliquis, patient has normal LV function on echocardiogram, patient is on metoprolol for rate control, I will increase the dosage today #4 type 2 diabetes-blood sugars monitored #5 acute on chronic diastolic CHF-patient is on Lasix presently #6 hypokalemia-resolved #7 coronary artery disease Charges/Coding Visit Charges Inpatient E&M: 01281 Subs Hosp L2
[2021-07-04] MEDS: Atorvastatin Calcium 10 MG Tablet PO (23:09)
[2021-07-04 23:40] LABS: Bedside Glucose 317 mg/dL (70-110)
[2021-07-05] VITALS (18 sets, daily range): BP systolic 101–116; BP diastolic 63–75; PULSE 88–109; RESP 18–20; TEMP 36.3–36.9; O2SAT 84–100
[2021-07-05] MEDS: Insulin Lispro 100 UNIT/ML INSULN.PEN SC ×2 (00:27→12:32)
[2021-07-05] MEDS: Nystatin Powder 15gm Bottle 1 APPLIC TOPICAL ×3 (05:26→22:03)
[2021-07-05 06:26] LABS: Absolute Lymphocyte Count 1.58 X10^3/uL (0.83-4.51); Absolute Neutrophil Count 14.5 X10^3/uL (2.0-7.7); Basophil# 0.09 X10^3/uL; Basophil% 0.5 % (0-1); Eosinophil# 0.16 X10^3/uL; Eosinophils% 0.9 % (0-5); Hemoglobin 12.3 g/dL (12.0-15.0); Lymphocyte # 1.58 X10^3/ul (0.83-4.51); Lymphocyte % 8.6 % (19-41); Mean Corp Hgb Conc 32.4 g/dL (32-36); Mean Corpuscular Hgb 28.9 pg (27.0-32.0); Mean Corpuscular Volume 89.2 fL (81-99); Mean Platelet Vol. 10.8 fl (6.2-12.0); Monocyte# 1.13 X10^3/uL; Monocyte% 6.2 % (0-10); NRBC Flagged by Analyzer 0 % (0-5); Neutrophil # 14.52 X10^3/uL (2.7-7.7); Neutrophil % 79.5 % (47-70); Platelet Count 347 K/mm3 (150-450); RBC Distribution Width CV 12.7 % (11.6-14.6); RBC Distribution Width SD 41.5 fl (35.1-43.9); Red Blood Count 4.26 M/mm3 (4.2-5.4); White Blood Count 18.3 K/mm3 (4.4-11.0)
[2021-07-05 06:51] LABS: ALB/GLOB Ratio 0.3 RATIO (0.9-2.4); AST(SGOT) 18 U/L (15-37); Alanine Aminotransfer ALT/SGPT 19 U/L (13-56); Albumin, Serum 1.7 g/dL (3.2-5.0); Alkaline Phosphatase 152 U/L (45-117); Anion Gap 7 (5-15); BUN 32 mg/dL (7-18); Calcium,Total 8.7 mg/dL (8.5-10.1); Chloride 100 mmol/L (98-107); Creatinine, Serum 0.94 mg/dL (0.55-1.02); EST Glomerular Filtration Rate 63 mL/min (>60); Est Glom Filt Rate - Afr Amer 76 mL/min (>60); Estimated Creatinine Clearance 50.84 ml/min; Globulin 5.8 g/dL (2.2-4.2); Glucose 104 mg/dL (74-106); Potassium 2.9 mmol/L (3.5-5.1); Protein, Total 7.5 g/dL (6.4-8.2); Sodium Level 138 mmol/L (136-145)
[2021-07-05] MEDS: NYSTATIN 500,000 UNIT/5 ML UDC 500000 UNIT PO ×4 (09:37→22:07)
[2021-07-05] MEDS: Clopidogrel Bisulfate 75 MG Tablet PO (09:38)
[2021-07-05] MEDS: metFORMIN (XR) 500 MG Tablet PO (09:38)
[2021-07-05] MEDS: FLUoxetine 20 MG Capsule 40 MG PO (09:38)
[2021-07-05] MEDS: Lisinopril 5 MG Tablet PO (09:39)
[2021-07-05] MEDS: Metoprolol Tartrate 50 MG Tablet PO ×2 (09:39→22:18)
[2021-07-05] MEDS: Aspirin E.C. 81 MG Tablet PO (09:42)
[2021-07-05] MEDS: APIXABAN 5 MG TABLET PO ×2 (09:42→22:09)
[2021-07-05] MEDS: Furosemide 40 MG Tablet PO ×2 (09:42→18:03)
[2021-07-05] MEDS: Menthol/Lanolin/Calamine/Znox 113 GM Tube 1 APPLIC TOPICAL ×4 (09:47→22:26)
--- NOTE | 2021-07-05 09:47 | CASEMGMT ---
GERMANIA called Monica at [facility]. GERMANIA let Monica know that patient will likely be ready for discharge tomorrow. Patient is out of pre-cautions tomorrow. Monica said that is fine they can take patient tomorrow. GERMANIA will place a green sheet on patient's chart. Plan: d/c to [facility] under skilled level of care on a convalescent stay. Marizol Randall MSW [facility]
[2021-07-05] MEDS: Potassium Chloride Oral Soln 20 MEQ/15 ML UDC 40 MEQ PO ×2 (09:54→22:06)
--- NOTE | 2021-07-05 10:09 | PN.CC_ITS ---
Assessment & Plan Assessment/Plan (1) COVID: (2) Acute respiratory failure with hypoxia: (3) Paroxysmal atrial fibrillation with RVR: (4) Type 2 diabetes mellitus: PLAN: RECOMMENDATIONS: 1. Continue Lantus at current dosing until Decadron discontinued on 07/06/2021 2. Agree with aggressive diuresis. Schedule potassium supplementation 3. Wean nasal cannula as tolerated. 4. Continue BiPAP with all sleep 5. Wean supplemental oxygen as tolerated 6. Hemodynamically stable on nasal cannula oxygen. Will sign off from a critical care/pulmonary perspective IMPRESSIONS: 1. Acute hypoxic respiratory failure secondary to COVID-19 Unclear etiology for acute decompensation. Patient reportedly is negative for the hospitalization, but weight has not been checked in several days. Will add daily weights. We will hold on any additional doses of Lasix, but clinical suspicion is for an element of CHF given rapid response to BiPAP therapy. Delayed presentation limits ability/options for COVID-19 therapy. Patient is appropriately on Decadron through 07/06/2021. Patient appears to be responding to diuretic therapy. We will continue to diurese as tolerated. Okay to use nasal cannula during the day and BiPAP with sleep. 2. A. fib with RVR/CAD/acute on chronic diastolic CHF Patient does have a history of coronary artery disease and chronic Lasix therapy. EF was preserved previously. We will continue to control heart rate as possible. It does not appear that the patient has been seen by cardiology in consultation. Patient remains on anticoagulation, statin, aspirin and Plavix. Continue atenolol for now. Rate better controlled at this time. 3. Hypokalemia secondary to Lasix therapy Potassium supplementation has been scheduled. Appears to be controlled at this time 4. Uncontrolled diabetes mellitus Patient with severely elevated blood sugars previously. Lantus will be continued. Patient is on Decadron therapy until 07/06/2021. Blood sugars appear to be well controlled at this time. 5. Morbid obesity/unvaccinated status/umbilical hernia/depression Complicates care, management, recovery and prognosis. Patient does not appear to have an acute abdomen at this time. Continue to reduce hernia if necessary. If unable to reduce, may need to reinvolve surgery. Umbilical hernia will likely need to be addressed as an outpatient Subjective Subjective Patient did well overnight. No acute issues were reported. Patient overall feels subjectively improved compared to previous. Patient continues to have an intermittent cough. Objective Data Objective Data Vital Signs: Vital Signs Temp Pulse Resp BP Pulse Ox 36.4 C L 103 H 18 101/64 98 07/05/21 09:40 07/05/21 09:40 07/05/21 09:40 07/05/21 09:40 07/05/21 10:03 Oxygen Flow Rate (L/min) [ 6 AMBULATING with Oxygen #1] Oxygen Flow Rate (L/min) [At 6 REST with Oxygen] Oxygen Flow Rate (L/min) 6 Oxygen Delivery Method Nasal Cannula Weight: 100.8 kg Body Mass Index (BMI) 39.9 Intake & Output: Intake and Output for Last 24 Hours 07/03/21 07/04/21 07/05/21 23:59 23:59 23:59 Intake Total 1553.75 / 1673.75 1130 / 1130 50 / 50 Output Total 2300 / 2950 1450 / 1450 450 / 450 Balance -746.25 / -1276.25 -320 / -320 -400 / -400 Lab / Micro Data Result Diagrams: 07/05/21 06:00 07/05/21 06:00 Labs: Laboratory Results - last 24 hr 07/04/21 11:29: POC Glucose 278 H 07/04/21 16:49: POC Glucose 288 H 07/04/21 23:02: POC Glucose 317 H 07/05/21 06:00: WBC 18.3 H, RBC 4.26, Hgb 12.3, Hct 38.0, MCV 89.2, MCH 28.9, MCHC 32.4, RDW Std Deviation 41.5, RDW Coeff of Maritza 12.7, Plt Count 347, MPV 10.8, Immature Gran % (Auto) 4.300 H, Neut % (Auto) 79.5 H, Lymph % (Auto) 8.6 L , [place] % (Auto) 6.2, Eos % (Auto) 0.9, Baso % (Auto) 0.5, Absolute Neuts (auto) 14.5 H, Absolute Lymphs (auto) 1.58, Nucleated RBC % 0 07/05/21 06:00: Sodium 138, Potassium 2.9 L, Chloride 100, Carbon Dioxide 31.0, Anion Gap 7, BUN 32 H, Creatinine 0.94, Estim Creat Clear Calc 50.84, Est GFR (MDRD) Af Amer 76, Est GFR (MDRD) Non-Af 63, BUN/Creatinine Ratio 34.0 H, Glucose 104, Calcium 8.7, Total Bilirubin 0.70, AST 18, ALT 19, Alkaline Phosphatase 152 H, Total Protein 7.5, Albumin 1.7 L, Globulin 5.8 H, Albumin/Globulin Ratio 0.3 L Micro: Microbiology 06/28/21 12:25 Nasal Secretion SARS-CoV-2 Antigen (Rapid) - Final Physical Exam Const alert, oriented x3 and no apparent distress Constitutional Narrative: Patient appears to be at baseline mentation on nasal cannula General Appearance: cooperative Exam Limitations: no limitations Nutritional Appearance: obese HEENT normocephalic, head/scalp atraumatic, hearing grossly normal bilaterally and moist oral mucous membranes Head and Scalp: normocephalic Eyes PERRL, EOMs intact bilaterally and conjunctivae normal Neck no lymphadenopathy Resp Auscultation: diminished lung sounds; Negative for rales, rhonchi or wheezes Cardio S1 normal heart sound, S2 normal heart sound and no murmurs Cardio Narrative: afib, better rate control GI normal to inspection, nondistended, normoactive bowel sounds, soft to palpation, non-tender and non-distended Extremity normal to inspection and full ROM General Extremity: edema bilateral (Trace to 1+); Negative for clubbing or cyanosis Peripheral Pulses: Yes pulses 2+ throughout Skin no rashes or lesions noted Neuro oriented x3, CN's II-XII intact bilaterally and moves all extremities Sensorium / Orientation: awake and alert Charges/Coding Visit Charges Inpatient E&M: 98956 Subs Hosp L2
[2021-07-05 10:56] LABS: Bedside Glucose 105 mg/dL (70-110)
[2021-07-05 12:40] LABS: Bedside Glucose 181 mg/dL (70-110)
[2021-07-05 16:15] LABS: Bedside Glucose 104 mg/dL (70-110)
[2021-07-05 18:30] LABS: Bedside Glucose 90 mg/dL (70-110)
--- NOTE | 2021-07-05 19:27 | NURSING ---
1800- Pts blood sugar was 57. Gave her glucerna and juice. It came up to 90. notified.
--- NOTE | 2021-07-05 20:21 | PCM.PN.HOSP ---
Subjective Subjective Patient was seen and examined today, patient requires too much oxygen on ambulation to be transferred to an extended care facility at this time. Patient does not complain of any shortness of breath at rest. Objective Data Objective Data Vital Signs: Vital Signs Temp Pulse Resp BP Pulse Ox 97.5 F L 103 H 18 109/63 96 07/05/21 18:06 07/05/21 19:00 07/05/21 18:06 07/05/21 18:06 07/05/21 18:06 Oxygen Flow Rate (L/min) [ 10 AMBULATING with Oxygen #2] Oxygen Flow Rate (L/min) [ 15 AMBULATING with Oxygen #3] Oxygen Flow Rate (L/min) [ 6 AMBULATING with Oxygen #1] Oxygen Flow Rate (L/min) [At 6 REST with Oxygen] Oxygen Flow Rate (L/min) 4 Oxygen Delivery Method Nasal Cannula Weight: 100.8 kg Body Mass Index (BMI) 39.9 Intake & Output: Intake and Output for Last 24 Hours 07/03/21 07/04/21 07/05/21 23:59 23:59 23:59 Intake Total 1553.75 / 1673.75 1130 / 1130 970 / 970 Output Total 2300 / 2950 1450 / 1450 1375 / 1375 Balance -746.25 / -1276.25 -320 / -320 -405 / -405 Lab / Micro Data Result Diagrams: 07/05/21 06:00 07/05/21 06:00 Labs: Laboratory Results - last 24 hr 07/04/21 23:02: POC Glucose 317 H 07/05/21 06:00: WBC 18.3 H, RBC 4.26, Hgb 12.3, Hct 38.0, MCV 89.2, MCH 28.9, MCHC 32.4, RDW Std Deviation 41.5, RDW Coeff of Maritza 12.7, Plt Count 347, MPV 10.8, Immature Gran % (Auto) 4.300 H, Neut % (Auto) 79.5 H, Lymph % (Auto) 8.6 L, [place] % (Auto) 6.2, Eos % (Auto) 0.9, Baso % (Auto) 0.5, Absolute Neuts (auto) 14.5 H, Absolute Lymphs (auto) 1.58, Nucleated RBC % 0 07/05/21 06:00: Sodium 138, Potassium 2.9 L, Chloride 100, Carbon Dioxide 31.0, Anion Gap 7, BUN 32 H, Creatinine 0.94, Estim Creat Clear Calc 50.84, Est GFR (MDRD) Af Amer 76, Est GFR (MDRD) Non-Af 63, BUN/Creatinine Ratio 34.0 H, Glucose 104, Calcium 8.7, Total Bilirubin 0.70, AST 18, ALT 19, Alkaline Phosphatase 152 H, Total Protein 7.5, Albumin 1.7 L, Globulin 5.8 H, Albumin/Globulin Ratio 0.3 L 07/05/21 09:07: POC Glucose 105 07/05/21 12:25: POC Glucose 181 H 07/05/21 15:44: POC Glucose 104 07/05/21 18:20: POC Glucose 90 Micro: Microbiology 06/28/21 12:25 Nasal Secretion SARS-CoV-2 Antigen (Rapid) - Final Physical Exam Const alert, oriented x3 and no apparent distress General Appearance: cooperative, well kempt and well developed Orientation / Consciousness: awake, oriented to person, oriented to place and oriented to time HEENT normocephalic and moist oral mucous membranes Eyes PERRL, EOMs intact bilaterally and conjunctivae normal Neck nuchal rigidity, supple, no JVD, thyroid normal and no carotid bruits General: trachea midline Resp normal respiratory effort, no retractions, no use of accessory muscles and clear to auscultation bilaterally Auscultation: Negative for rales, rhonchi or wheezes Cardio no murmurs, no rub and no gallops Cardio Narrative: Heart rate and rhythm is irregular GI normal to inspection, nondistended, normoactive bowel sounds, soft to palpation, non-tender and non-distended Extremity no clubbing, cyanosis or edema Skin no rashes or lesions noted General Skin Exam: no breakdown Neuro oriented x3, CN's II-XII intact bilaterally, no focal motor deficits and no sensory deficits noted Sensorium / Orientation: awake and alert Speech: speech normal Psych thought process normal and affect normal Assessment & Plan Assessment/Plan (1) COVID: (2) Acute respiratory failure with hypoxia: PLAN: 1. COVID-19 pneumonia-patient is on Decadron and baricitinib, pulmonary medicine and infectious diseases is participating in her care, patient's Zosyn was stopped today. Patient will not be out of isolation until 07/06/2021 #2 acute hypoxic respiratory failure secondary to #1-patient's pulse ox will be monitored #3 new onset atrial fibrillation-patient is currently anticoagulated on Eliquis, patient has normal LV function on echocardiogram, patient is on metoprolol for rate control, her rate appears better controlled today #4 type 2 diabetes-blood sugars monitored #5 acute on chronic diastolic CHF-patient is on Lasix presently #6 hypokalemia-resolved #7 coronary artery disease Charges/Coding Visit Charges Inpatient E&M: 56172 Subs Hosp L2
[2021-07-05] MEDS: 0.9% Saline Lock 10 ML Syringe IV (22:04)
[2021-07-05] MEDS: dexAMETHasone 10 MG/ML Vial 6 MG IV (22:05)
[2021-07-05] MEDS: Atorvastatin Calcium 10 MG Tablet PO (22:09)
[2021-07-05 22:45] LABS: Bedside Glucose 86 mg/dL (70-110)
[2021-07-06] VITALS (9 sets, daily range): BP systolic 102–118; BP diastolic 71–90; PULSE 85–98; RESP 16–18; TEMP 36.1–36.4; O2SAT 92–98
[2021-07-06] MEDS: Nystatin Powder 15gm Bottle 1 APPLIC TOPICAL (06:20)
[2021-07-06] MEDS: Insulin Lispro 100 UNIT/ML INSULN.PEN SC ×2 (06:21→11:46)
[2021-07-06 06:31] LABS: Bedside Glucose 172 mg/dL (70-110)
[2021-07-06] MEDS: Potassium Chloride Oral Soln 20 MEQ/15 ML UDC 40 MEQ PO (09:28)
[2021-07-06] MEDS: dexAMETHasone 10 MG/ML Vial 6 MG IV (09:28)
[2021-07-06] MEDS: Lisinopril 5 MG Tablet PO (09:29)
[2021-07-06] MEDS: FLUoxetine 20 MG Capsule 40 MG PO (09:29)
[2021-07-06] MEDS: Clopidogrel Bisulfate 75 MG Tablet PO (09:29)
[2021-07-06] MEDS: Metoprolol Tartrate 50 MG Tablet PO (09:29)
[2021-07-06] MEDS: Furosemide 40 MG Tablet PO (09:30)
[2021-07-06] MEDS: NYSTATIN 500,000 UNIT/5 ML UDC 500000 UNIT PO (09:30)
[2021-07-06] MEDS: metFORMIN (XR) 500 MG Tablet PO (09:30)
[2021-07-06] MEDS: Aspirin E.C. 81 MG Tablet PO (09:30)
[2021-07-06] MEDS: Menthol/Lanolin/Calamine/Znox 113 GM Tube 1 APPLIC TOPICAL (09:31)
[2021-07-06] MEDS: APIXABAN 5 MG TABLET PO (09:32)
[2021-07-06] MEDS: 0.9% Saline Lock 10 ML Syringe IV (09:36)
--- NOTE | 2021-07-06 10:12 | TREXTCAR_ITS ---
Diet 07/02/21 11:55 Diet: Carbohydrate Controlled Type of Dietary Supplement:: Glucerna Shake Is pt able to select menu?: Yes Diet Comments: 120mL w/ meals Routine Orders/Code Status O2 Liters per Minute: 4 O2 Frequency: Continuous Keep PO Greater than or Equal to (%): 90 Routine Lab Work: BMP (on 07/08/21) and - (Fingerstick blood s, Coverage with Humalo-250: 5 units subcu, 251-300: 8 units subcu, 301 to 350: 12 units subcu, 351-400: 15 units subcu) Code Status: Full Code Wound(s) groin/joe areas/inner legs/labia: Wound Type: incontinence dermatitis coccyx/gluteal fold/inner buttocks: Wound Type: Pressure Injury Therapies Weight Bearing: Full weight bearing Physical Therapy: Eval and Treat Occupational Therapy: Eval and Treat Problem/Diagnosis (1) COVID: Status: Acute (2) Acute respiratory failure with hypoxia: Status: Acute (3) Essential hypertension: Status: Chronic (4) Type 2 diabetes mellitus: Status: Chronic (5) Atherosclerotic heart disease of [place] coronary artery without angina pectoris: Status: Chronic (6) Hyperlipidemia: Status: Chronic (7) Paroxysmal atrial fibrillation with RVR: Status: Chronic Allergies/Procedures Done in Hospital Allergies Sulfa (Sulfonamide Antibiotics) Allergy (Verified 11/17/19 10:11) Hives Procedures: 2-D Echocardiogram Type of Care/Length of Stay Estimated LOS: Convalescent Care Less Than 30 days Type of Care Needed: Skilled Rehab Potential: Good Prognosis: Good Additional Orders/Day of Discharge H&P will serve as current which was dated: 06/25/21 Day of Discharge: 07/06/21 Dietary and Speech Recommendations Dietitian Recommendations/Changes: continue CHO controlled diet as tolerated; will change ONS to Glucerna Discharge Plan Admission Admit Date/Time: 06/25/21 12:23 Primary Reason for Your Visit: afib with RVR, COVID 19 pneumonia Attending Provider: Raman Crump Primary Care Provider: Nena Calvillo Consulting Providers: Henri Marrufo ; Dillon Fuentes ; Manolo Trevino ; Leobardo Garnica ; Dionna Clark CERTIFIED MASTER SAFECRACKER Instructions Patient Instructions: Coronavirus Disease 2019 (COVID-19): Overview, Understanding Atrial Fibrillation Additional Instructions / Restrictions: to remain in self isolation till 07/05/2021. Discharge Orders/Prescriptions Prescriptions: New furosemide 40 mg Tablet 40 mg PO BIDLX Qty: 0 RF: 0 acetaminophen [Tylenol] 325 mg Tablet 650 mg PO Q6H PRN PRN (Reason: Headache/Fever (T>100f)) Qty: 0 RF: 0 atorvastatin 10 mg Tablet 10 mg PO QHS Qty: 0 RF: 0 clopidogrel 75 mg Tablet 75 mg PO DAILY Qty: 0 RF: 0 aspirin 81 mg Tablet,Delayed Release (Dr/Ec) 81 mg PO DAILY Qty: 0 RF: 0 metoprolol tartrate 50 mg Tablet 50 mg PO BID Qty: 0 RF: 0 lisinopril 5 mg Tablet 5 mg PO DAILY Qty: 0 RF: 0 fluoxetine 20 mg Capsule 40 mg PO DAILY Qty: 0 RF: 0 metformin 500 mg Tablet Extended Release 24 Hr 500 mg PO BIDCM Qty: 0 RF: 0 Lantus Solostar U-100 Insulin 100 unit/mL (3 mL) Insulin Pen 15 units subcut BID Qty: 0 RF: 0 Eliquis 5 mg Tablet 5 mg PO BID Qty: 0 RF: 0 potassium chloride 20 mEq tablet,ER particles/crystals 40 meq PO BID Qty: 1 RF: 0 pantoprazole [Protonix] 20 mg tablet,delayed release (DR/EC) 40 mg PO DAILY Qty: 1 RF: 0 Discontinued furosemide 40 mg tablet 40 mg PO BID RF: 0 insulin glargine 100 UNIT/ML solution 31 unit subcut QHS RF: 0 aspirin 81 MG tablet,delayed release (DR/EC) 81 mg PO DAILY RF: 0 lisinopril 5 MG tablet 5 mg PO DAILY RF: 0 fluoxetine 40 MG capsule 40 mg PO DAILY RF: 0 ibuprofen 800 mg tablet 800 mg PO Q8H PRN (Reason: Pain) RF: 0 metformin 500 mg tablet extended release 24 hr 500 mg PO BIDCM RF: 0 rosuvastatin 5 mg tablet 5 mg PO QHS RF: 0 clopidogrel 75 MG tablet 75 mg PO DAILY RF: 0 atenolol 50 mg tablet 50 mg PO BID RF: 0 Disposition Disposition (needs filled in before D/C Order can be placed): [facility]
[2021-07-06 10:31] LABS: Bedside Glucose 155 mg/dL (70-110)
--- NOTE | 2021-07-06 12:23 | NURSING ---
The [facility] nurse Ann called asking for report on pt. Report provided, denies any further questions at this time.
[2021-07-06] MEDS: Potassium Chloride Oral Tablet 20 MEQ 40 MEQ PO (12:31)
[2021-07-06 12:50] LABS: Bedside Glucose 299 mg/dL (70-110)
--- NOTE | 2021-07-06 19:53 | PCM.DC.SUM ---
Providers Date of Admission: 06/25/21 Date of Discharge: 07/06/21 Primary Care Physician: Dr. Nena Calvillo MD Consultations 06/29/21 18:02 Consult: General Surgery Routine Consulting Provider: Henri Marrufo Reason for Consult: hernia with transverse colon EMERGENT Consult: No Notified: Yes Date Notified: 06/29/21 Time Notified: 18:02 Method of Notification: Verbal Comments:: Dr Flynn to call Dr Marrufo 06/30/21 09:30 Consult: [employer] Developer / Pulmonary Medicine Routine Consulting Provider: Pulmonary Medicine [facility] Reason for Consult: covid, hypoxia EMERGENT Consult: No Notified: Yes Date Notified: 06/30/21 Time Notified: 09:30 Method of Notification: md to md 06/30/21 17:29 Consult: Infectious Disease Routine Consulting Provider: Dillon Fuentes Reason for Consult: acute hypoxic respiratory failure due to COVID EMERGENT Consult: No Notified: Yes Date Notified: 07/01/21 Time Notified: 07:12 Method of Notification: Text Reason For Visit: A FIB WITH RVR COVID 19 PNEUMONIA Diagnosis Discharge Diagnosis (1) COVID: Status: Acute Code(s): U07.1 - COVID-19 (2) Acute respiratory failure with hypoxia: Status: Acute Code(s): J96.01 - Acute respiratory failure with hypoxia (3) Essential hypertension: Status: Chronic Code(s): I10 - Essential (primary) hypertension (4) Type 2 diabetes mellitus: Status: Chronic Code(s): E11.9 - Type 2 diabetes mellitus without complications (5) Atherosclerotic heart disease of [place] coronary artery without angina pectoris: Status: Chronic Code(s): I25.10 - Atherosclerotic heart disease of [place] coronary artery without angina pectoris Qualifiers: [place] vs. transplanted heart: [place] heart Qualified Code(s): I25.10 - Atherosclerotic heart disease of [place] coronary artery without angina pectoris (6) Hyperlipidemia: Status: Chronic Code(s): E78.5 - Hyperlipidemia, unspecified Qualifiers: Hyperlipidemia type: unspecified Qualified Code(s): E78.5 - Hyperlipidemia, unspecified (7) Paroxysmal atrial fibrillation with RVR: Status: Chronic Code(s): I48.0 - Paroxysmal atrial fibrillation Plan: 1. COVID-19 pneumonia #2 acute hypoxic respiratory failure secondary to #1 #3 new onset atrial fibrillation #4 type 2 diabetes #5 acute on chronic diastolic CHF #6 hypokalemia #7 coronary artery disease Medications at Discharge Home Medications acetaminophen [Tylenol] 650 mg PO Q6H PRN PRN #0 tab 07/06/21 apixaban [Eliquis] 5 mg PO BID #0 tab 07/06/21 aspirin 81 mg PO DAILY #0 tab 07/06/21 atorvastatin 10 mg PO QHS #0 tab 07/06/21 clopidogrel 75 mg PO DAILY #0 tab 07/06/21 fluoxetine 40 mg PO DAILY #0 cap 07/06/21 furosemide 40 mg PO BIDLX #0 tab 07/06/21 insulin glargine [Lantus Solostar U-100 Insulin] 15 units SUBCUT BID #0 ml 07/06/21 lisinopril 5 mg PO DAILY #0 tab 07/06/21 metformin 500 mg PO BIDCM #0 tab 07/06/21 metoprolol tartrate 50 mg PO BID #0 tab 07/06/21 pantoprazole [Protonix] 40 mg PO DAILY #1 tab 07/06/21 potassium chloride 40 meq PO BID #1 tab 07/06/21 Hospital Course Operations None Procedures 2-D Echocardiogram Summary of Care Provided Minutes Spent on Discharge: 32 Hospital Course: This 66-year-old white female was seen in the emergency room at [facility] complaining of shortness of breath. She had been diagnosed recently with COVID-19, she believes her symptoms started about 10 days prior. She also complained of a rapid heartbeat. Work-up in the emergency room included an EKG which shows atrial fibrillation with a ventricular rate of 126, blood sugar was elevated, white blood cell count was slightly low, chest x-ray was consistent with COVID-19 pneumonia. Patient was given metoprolol in the emergency room to slow her heart rate. Patient's oxygen saturation at rest was 89%. Patient was admitted to the hospital, she was given Decadron and remdesivir, her hospital course was complicated by umbilical hernia that was reducible, surgical intervention was not recommended-patient was seen by general surgery. While on the PCU, her respiratory status worsened and she was seen by pulmonary medicine, patient was eventually transferred to ICU due to being on 100% oxygen with BiPAP. Patient did not require intubation, she was seen in consultation by ID and placed on baricitinib, she slowly improved and was transferred out of ICU. She was seen by PT and OT and felt to benefit from short-term placement in a [place] [facility] facility. On 07/06/2021, patient was seen and examined: On examination she appeared in good health and spirits, she does not appear to be in any distress. Vital signs as documented. Skin warm and dry and without overt rashes. Neck without JVD, thyroid appears normal, trachea is midline, neck is supple. Lungs clear, normal air movement was noted. Heart exam notable for regular rhythm, normal sounds and absence of murmurs, rubs or gallops. Abdomen unremarkable and without evidence of organomegaly, masses, or abdominal aortic enlargement, bowel sounds are present in all 4 quadrants, no abdominal tenderness was noted. Extremities nonedematous, no cyanosis was noted, no clubbing was noted. Neuro: Cranial nerves II through XII are grossly intact, no focal motor deficits were noted, sensation to light touch and pinprick is intact, motor exam 5/5 throughout. Psych: Patient is alert and oriented x3, she does not appear anxious or depressed, she does not appear agitated. On 07/06/2021, patient appeared stable for discharge to an extended care facility for short-term rehab services. Weight / BMI Weight Weight: 99.2 kg Body Mass Index (BMI) 39.9 ABG / Lab / Microbiology Data Result Diagrams: 07/05/21 06:00 07/05/21 06:00 Laboratory: Laboratory Results - last 24 hr 07/05/21 22:01: POC Glucose 86 07/06/21 06:19: POC Glucose 172 H 07/06/21 09:02: POC Glucose 155 H 07/06/21 11:43: POC Glucose 299 H Microbiology: Microbiology 07/06/21 11:45 Nasal Secretion SARS-CoV-2 Antigen (Rapid) - Final 06/28/21 12:25 Nasal Secretion SARS-CoV-2 Antigen (Rapid) - Final D/C Instructions Discharge Diet: Low fat / Low cholesterol Weight Bearing Status: Weight bearing as tolerated Call your doctor if you observe: Fever of 101 or Higher, Shortness of breath, Dizziness, Swelling in the ankles and Increased palpitations (irregular heartbeat) Meaningful Use Info Meaningful Use Diagnoses (Choose all that apply): None applicable Discharge Plan Admission Admit Date/Time: 06/25/21 12:23 Primary Reason for Your Visit: afib with RVR, COVID 19 pneumonia Attending Provider: Raman Crump Primary Care Provider: Nena Calvillo Consulting Providers: Henri Marrufo ; Dillon Fuentes ; Manolo Trevino ; Leobardo Garnica ; Dionna Clark POWER SUPERINTENDENT Instructions Patient Instructions: Coronavirus Disease 2019 (COVID-19): Overview, Understanding Atrial Fibrillation Additional Instructions / Restrictions: to remain in self isolation till 07/05/2021. Discharge Orders/Prescriptions Prescriptions: New furosemide 40 mg Tablet 40 mg PO BIDLX Qty: 0 RF: 0 acetaminophen [Tylenol] 325 mg Tablet 650 mg PO Q6H PRN PRN (Reason: Headache/Fever (T>100f)) Qty: 0 RF: 0 atorvastatin 10 mg Tablet 10 mg PO QHS Qty: 0 RF: 0 clopidogrel 75 mg Tablet 75 mg PO DAILY Qty: 0 RF: 0 aspirin 81 mg Tablet,Delayed Release (Dr/Ec) 81 mg PO DAILY Qty: 0 RF: 0 metoprolol tartrate 50 mg Tablet 50 mg PO BID Qty: 0 RF: 0 lisinopril 5 mg Tablet 5 mg PO DAILY Qty: 0 RF: 0 fluoxetine 20 mg Capsule 40 mg PO DAILY Qty: 0 RF: 0 metformin 500 mg Tablet Extended Release 24 Hr 500 mg PO BIDCM Qty: 0 RF: 0 Lantus Solostar U-100 Insulin 100 unit/mL (3 mL) Insulin Pen 15 units subcut BID Qty: 0 RF: 0 Eliquis 5 mg Tablet 5 mg PO BID Qty: 0 RF: 0 potassium chloride 20 mEq tablet,ER particles/crystals 40 meq PO BID Qty: 1 RF: 0 pantoprazole [Protonix] 20 mg tablet,delayed release (DR/EC) 40 mg PO DAILY Qty: 1 RF: 0 Discontinued furosemide 40 mg tablet 40 mg PO BID RF: 0 insulin glargine 100 UNIT/ML solution 31 unit subcut QHS RF: 0 aspirin 81 MG tablet,delayed release (DR/EC) 81 mg PO DAILY RF: 0 lisinopril 5 MG tablet 5 mg PO DAILY RF: 0 fluoxetine 40 MG capsule 40 mg PO DAILY RF: 0 ibuprofen 800 mg tablet 800 mg PO Q8H PRN (Reason: Pain) RF: 0 metformin 500 mg tablet extended release 24 hr 500 mg PO BIDCM RF: 0 rosuvastatin 5 mg tablet 5 mg PO QHS RF: 0 clopidogrel 75 MG tablet 75 mg PO DAILY RF: 0 atenolol 50 mg tablet 50 mg PO BID RF: 0 Disposition Disposition (needs filled in before D/C Order can be placed): Assisted Facility Charges/Coding Visit Charges Inpatient E&M: 21028 Disch Hosp
[2021-07-09 09:16] LABS: Bedside Glucose 66 mg/dL (70-110)
== END 2021-07-06 14:15 | disposition skilled nursing facility (03) | DRG 177 ==
LOC: ED 12:20 → PCU 12:28 → ICU 07-01 10:38 → PCU 07-04 13:18
PROVIDERS: Internal Medicine Infectious Disease; Admitting Provider Student in an Organized Health Care Education/Training Program; Emergency Provider Emergency Medicine; PCP Internal Medicine; Visit Provider Internal Medicine
DX: U07.1 COVID-19 (principal); J12.82 Pneumonia due to coronavirus disease 2019; J96.01 Acute respiratory failure with hypoxia; I50.33 Acute on chronic diastolic (congestive) heart failure; Z68.41 Body mass index [BMI] 40.0-44.9, adult; I48.0 Paroxysmal atrial fibrillation; M79.10 Myalgia, unspecified site; E78.5 Hyperlipidemia, unspecified; I11.0 Hypertensive heart disease with heart failure; Z87.891 Personal history of nicotine dependence; E87.6 Hypokalemia; E11.65 Type 2 diabetes mellitus with hyperglycemia; T50.1X5A Adverse effect of loop [high-ceiling] diuretics, initial encounter; I25.10 Atherosclerotic heart disease of native coronary artery without angina pectoris; E66.01 Morbid (severe) obesity due to excess calories; F32.A Depression, unspecified; F41.9 Anxiety disorder, unspecified; K42.9 Umbilical hernia without obstruction or gangrene; J45.909 Unspecified asthma, uncomplicated; I25.2 Old myocardial infarction; Z79.4 Long term (current) use of insulin; Z79.84 Long term (current) use of oral hypoglycemic drugs; Z88.2 Allergy status to sulfonamides; Z90.49 Acquired absence of other specified parts of digestive tract; Z95.5 Presence of coronary angioplasty implant and graft; Z28.3 Underimmunization status
CPT/HCPCS: 36415; 36600; 71045; 74177; 80048; 80053; 80076; 82803; 82962; 83605; 83615; 83880; 84075; 84145; 84443; 84484; 85025; 85379; 85384; 86140; 87426; 87635; 93005; 93306; 94003; 94660; 94762; 97110; 97162; 97166; 97530; 97535; 99285; 99406; J7040; J7050; Q9967; U0005; A4216; J1940; J2405; U0003

== ENCOUNTER 2021-07-08 20:29 | Observation (INO) | payer MEDICARE, SELFPAY ==
[2021-07-08] VITALS (9 sets, daily range): BP systolic 93–142; BP diastolic 52–118; PULSE 92–120; RESP 20–22; TEMP 35.6–36.9; O2SAT 96–100; BMI 39.1; BMI 37.5
--- NOTE | 2021-07-08 21:09 | RAD_ITS ---
STUDY: X-RAY CHEST REASON FOR EXAM: Female, 66 years old. Dyspnea, bilateral rales and lymphedema TECHNIQUE: AP portable COMPARISON: 06/25/2021 FINDINGS: Less than optimal inspiratory effort is seen. There is interstitial thickening with patchy areas of increased density suspicious for atypical viral pneumonia There is no demonstrated pleural abnormality. Heart is enlarged. Normal mediastinum and caridad. Normal visualized pulmonary arteries. Normal visualized aortic arch and descending thoracic aorta. Dorsal spine demonstrates degenerative change. Normal visualized ribs, clavicles, and shoulders. There is no demonstrated abnormality of the visualized soft tissue structures of the upper abdomen. Findings similar to that seen on prior study RAD/Chest 1 View (Portable) IMPRESSION: Findings which may be consistent with Covid 19 pneumonia. No significant change since prior study Electronically Signed: Barrington Sanchez MD at 21:52 EDT , Service support ,
--- NOTE | 2021-07-08 21:10 | EKG12_ITS ---
Test Reason : SOB Blood Pressure : / mmHG Vent. Rate : 120 BPM Atrial Rate : 136 BPM P-R Int : 000 ms QRS Dur : 084 ms QT Int : 354 ms P-R-T Axes : 000 007 053 degrees QTc Int : 500 ms Atrial fibrillation Abnormal ECG Confirmed by MICAH DAVIS, MARIAN ([id number]), editor newspaper ARNOLD MILNER ([id number]) on 07/10/2021 8:48:09 AM Referred By: BB Confirmed By:MARIAN OBRIEN MD
--- NOTE | 2021-07-08 21:13 | ED.VIS.DYS ---
HPI History of Present Illness Chief Complaint: Shortness of Breath Informant: patient and family Onset/Context/Timing Onset: Days Context: gradual Timing: Continuous Quality: Positive for Dyspnea on exertion and Orthopnea Current Severity: Moderate Maximum Severity: Severe Worsened by: other (Turning in bed) Relieved by: Nothing and Oxygen (Is on 4 L of oxygen.) Associated Symptoms cough and sore throat Chest Pain: Positive for None Narrative Narrative: Patient is not a good informant. Patient is somnolent. Patient has to be stimulated repeatedly to answer questions. Family is there. She had onset of Covid symptoms June 22. She was admitted to the hospital on June 25. She was admitted to the ICU. She was recently discharged from the hospital to the [facility]. She was sent from the [facility] because of increased shortness of breath, rapid heartbeat and decreased level of consciousness. She is not able to contribute much with regards to her history. She denied fever or chills. She denies headache. She denies visual symptoms. She denies rhinorrhea or sore throat. She does admit to shortness of breath. She does admit to palpitations. She apparently has a sore in her sacral area. She is not very mobile. Daughter states she has bruises because of Lovenox injections. She is presently on Eliquis. Patient denies any urinary symptoms. PE Risk Factors: Positive for Recent immobilization; Negative for Cancer, OCP + Smoking + > 35, Prior DVT or PE, Recent surgery and Recent travel Prior similar symptoms: Yes (Covid pneumonia) Recent Illness/Hospitalization: Yes PFSH PFS Medical History Anxiety Atherosclerotic heart disease of [place] coronary artery without angina pectoris Chest pain Depression Essential hypertension Hx of non-ST elevation myocardial infarction (NSTEMI) Hyperlipidemia NSTEMI (non-ST elevated myocardial infarction) Old myocardial infarction Presence of stent in coronary artery (~12/28/18) S/P coronary artery stent placement (~12/28/18) Tachycardia Type 2 diabetes mellitus Unstable angina Urinary tract infection Home Medications acetaminophen [Tylenol] 650 mg PO Q6H PRN PRN #0 tab 07/06/21 [Rx Last Taken Unknown] apixaban [Eliquis] 5 mg PO BID #0 tab 07/06/21 [Rx Last Taken Unknown] aspirin 81 mg PO DAILY #0 tab 07/06/21 [Rx Last Taken Unknown] atorvastatin 10 mg PO QHS #0 tab 07/06/21 [Rx Last Taken Unknown] clopidogrel 75 mg PO DAILY #0 tab 07/06/21 [Rx Last Taken Unknown] fluoxetine 40 mg PO DAILY #0 cap 07/06/21 [Rx Last Taken Unknown] furosemide 40 mg PO BIDLX #0 tab 07/06/21 [Rx Last Taken Unknown] insulin glargine [Lantus Solostar U-100 Insulin] 15 units SUBCUT BID #0 ml 07/06/21 [Rx Last Taken Unknown] lisinopril 5 mg PO DAILY #0 tab 07/06/21 [Rx Last Taken Unknown] metformin 500 mg PO BIDCM #0 tab 07/06/21 [Rx Last Taken Unknown] metoprolol tartrate 50 mg PO BID #0 tab 07/06/21 [Rx Last Taken Unknown] potassium chloride 40 meq PO BID #1 tab 07/06/21 [Rx Last Taken Unknown] Allergy/AdvReac Type Severity Reaction Status Date / Time Sulfa (Sulfonamide Allergy Hives Verified 07/08/21 20:29 Antibiotics) Surgical History History of cholecystectomy Presence of coronary angioplasty implant and graft (~12/28/18) Social History (Updated 07/08/21 @ 21:[address] Ken Ortega MD) housing: group home Smoking Status: Former smoker alcohol intake: never substance use type: does not use caffeine: No ROS ROS ED Review of Systems ROS Unobtainable: due to mental status Constitutional Constitutional ED: Denies chills or fever(s) Eyes Eyes: Denies blurry vision or change in vision ENT ENT ED: Denies rhinorrhea or sore throat Cardiovascular Cardiovascular: Reports palpitations; Denies chest pain Respiratory/Chest Respiratory/Chest: Reports cough, dyspnea and dyspnea on exertion Gastrointestinal Gastrointestinal: Denies abdominal pain, nausea or vomiting Genitourinary Genitourinary ED: Denies dysuria, hematuria or urinary frequency Neurologic Neurologic: Reports weakness Hematologic/Lymphatic Hematologic/Lymphatic: Reports easy bruising EXAM Physical Exam Const Vital Signs: 07/08/21 20:30 07/08/21 21:29 07/08/21 21:32 Temperature 96.4 F L 96.9 F L Temperature Source Temporal Temporal Pulse Rate 120 H 120 H Respiratory Rate 22 H 20 H Respiratory Effort Normal Respiratory Depth Shallow Respiratory Pattern Tachypnea Blood Pressure 142/118 H 97/52 L Blood Pressure Mean 126 67 Pulse Ox 100 98 Oxygen Delivery Method Nasal Cannula Nasal Cannula Nasal Cannula Oxygen Flow Rate (L/min) 4 3 3 07/08/21 21:49 07/08/21 22:04 07/08/21 22:18 Temperature 98.4 F Temperature Source Temporal Pulse Rate 115 H 98 107 H Respiratory Rate 20 H Respiratory Effort Respiratory Depth Respiratory Pattern Blood Pressure 115/72 99/71 101/73 Blood Pressure Mean 86 80 82 Pulse Ox 99 Oxygen Delivery Method Nasal Cannula Oxygen Flow Rate (L/min) 4 Positive well nourished, well developed and obese General Appearance ED: well developed and other Tachypnea, tachypnea and decreased mental status. Nutritional Appearance: obese HEENT Reports TM's clear and dry mucous membranes atraumatic and trauma Tympanic Membrane ED: Yes TM's clear Mouth ED: Yes dry mucous membranes Mouth: dry mucous membranes Eyes PERRL and EOMs intact bilaterally Neck no lymphadenopathy, supple and no meningeal signs Resp No normal respiratory effort and No clear to auscultation bilaterally Auscultation: rales bilateral mid and lower and diminished lung sounds Cardio no murmurs Rate: tachycardic Rhythm: abnormal rhythm GI non-tender, non-distended and no masses Auscultation: normoactive bowel sounds Palpation: soft Back/Spine no CVA tenderness and normal to inspection General Back: Negative for CVA tenderness Neuro No oriented x3 and CN's II-XII intact bilaterally Santosh Coma Scale: document GCS findings To Voice Obeys Commands Confused 13 Sensorium / Orientation: Negative for alert Psych Thought Process: No normal thought process Skin Skin Narrative: Bruises noted from anticoagulation. Lesions: no lesions Rashes: no rashes MDM MDM MDM Narrative Medical decision making narrative: Patient with A. fib RVR. Initial blood pressure that I saw was low. Repeat improved markedly. She is on metoprolol. Will give metoprolol for rate control. Chest x-ray was obtained to assess for Covid pneumonia versus congestive heart failure. Electrolyte panel was obtained to assess renal function, glucose and electrolytes. She does have diabetes. PGT was obtained to rule out hypoglycemia as well as hyperglycemia. Cath urine was ordered to assess for urinary tract infection. Patient received a fluid bolus for hypotension since there was no evidence of heart failure on the chest x-ray. She also was given 5 mg of metoprolol for her rapid heart rate. Her heart rate has improved from 151 60-1 10-1 20. Her lactate was elevated most likely due to her hypotension. White count is elevated. She has had prior elevated white count. Creatinine slight elevated 1.44. Glucose is elevated 188. BNP is normal, 67.4. VBG reveals normal CO2. pH is normal. This would not explain her altered mental status. Lab Data Labs: Laboratory Results - last 24 hr 07/08/21 07/08/21 07/08/21 20:40 20:40 20:40 WBC 17.4 H RBC 4.01 L Hgb 11.7 L Hct 35.7 L MCV 89.0 MCH 29.2 MCHC 32.8 RDW Std Deviation 41.1 RDW Coeff of Maritza 12.6 Plt Count 518 H MPV 11.1 Neut % (Auto) Not Reportable Absolute Neuts (auto) 11.7 H Absolute Lymphs (auto) 2.44 Total Counted 100 Neutrophils % (Manual) 64 Band Neutrophils % 3 Lymphocytes % (Manual) 14 L Monocytes % (Manual) 11 H Metamyelocytes % 4 H Myelocytes % 4 H Diff Path Review May foll Platelet Estimate MOD INC RBC Morphology N CHROM Anisocytosis RARE Macrocytosis RARE Sodium 133 L Potassium 4.9 Chloride 99 Carbon Dioxide 25.0 Anion Gap 9 BUN 73 H Creatinine 1.44 H Estim Creat Clear Calc 33.19 Est GFR (MDRD) Af Amer 47 L Est GFR (MDRD) Non-Af 39 L BUN/Creatinine Ratio 50.7 H Glucose 182 H Lactic Acid 3.5 H* Calcium 9.7 Troponin I High Sens 21 B-Natriuretic Peptide 07/08/21 20:40 WBC RBC Hgb Hct MCV MCH MCHC RDW Std Deviation RDW Coeff of Maritza Plt Count MPV Neut % (Auto) Absolute Neuts (auto) Absolute Lymphs (auto) Total Counted Neutrophils % (Manual) Band Neutrophils % Lymphocytes % (Manual) Monocytes % (Manual) Metamyelocytes % Myelocytes % Diff Path Review Platelet Estimate RBC Morphology Anisocytosis Macrocytosis Sodium Potassium Chloride Carbon Dioxide Anion Gap BUN Creatinine Estim Creat Clear Calc Est GFR (MDRD) Af Amer Est GFR (MDRD) Non-Af BUN/Creatinine Ratio Glucose Lactic Acid Calcium Troponin I High Sens B-Natriuretic Peptide 67.4 ABG Data ABG results: ABG 07/08/21 22:11 Specimen Type ANGEL VBG pH 7.44 H VBG pO2 98 H VBG HCO3 24 VBG Total CO2 25 VBG O2 Sat (Calc) 98 H VBG Base Excess 0 POC Mix VBG pCO2 Pt Tmp 35.9 L Radiography Chest X-Ray - ED: 1 View and Read by ED Physician (Interpreted by me at 2137. Patient's findings are consistent with Covid pneumonia. Cardiac silhouette is normal. [place] is congested. There is no evidence of effusion. There is no cephalization or curly B-lines. Osseous structures appear normal.) Diagnostic Testing: Clinical Impression(s) from Imaging Studies Chest X-Ray 07/08/21 21:09 IMPRESSION: Findings which may be consistent with Covid 19 pneumonia. No significant change since prior study Electronically Signed: Barrington Sanchez MD at 21:52 EDT , Service support , EKG Initial EKG: Attestation: I personally reviewed and interpreted this EKG as follows: Interpretation: Atrial Fibrillation (Ventricular rate is 120. QRS duration is 84 ms. QT duration 354 ms. [place] is normal.) Critical Care Time Critical Care Time: Yes Critical care time (excluding procedures): 30-74 minutes (34 minutes), Including time spent: (History, physical, documentation, review of prior records, initiation of treatment, interpretation of laboratory results), Discussing w/Patient &/or Family/Surgical Device Sales Representative, Discussing w/Consultants and Arranging Admission or Transfer Discharge Plan Triage Chief Complaint: Shortness of Breath ED Provider: Ken Ortega Dx/Rx/DC Orders Clinical Impression: Atrial fibrillation with rapid ventricular response, Acute hypotension, Acidosis, lactic, Acute renal insufficiency, Acute alteration in mental status, Pneumonia due to COVID-19 virus, Chronic respiratory failure with hypoxia Prescriptions: No Action furosemide 40 mg Tablet 40 mg PO BIDLX Qty: 0 RF: 0 acetaminophen [Tylenol] 325 mg Tablet 650 mg PO Q6H PRN PRN (Reason: Headache/Fever (T>100f)) Qty: 0 RF: 0 atorvastatin 10 mg Tablet 10 mg PO QHS Qty: 0 RF: 0 clopidogrel 75 mg Tablet 75 mg PO DAILY Qty: 0 RF: 0 aspirin 81 mg Tablet,Delayed Release (Dr/Ec) 81 mg PO DAILY Qty: 0 RF: 0 metoprolol tartrate 50 mg Tablet 50 mg PO BID Qty: 0 RF: 0 lisinopril 5 mg Tablet 5 mg PO DAILY Qty: 0 RF: 0 fluoxetine 20 mg Capsule 40 mg PO DAILY Qty: 0 RF: 0 metformin 500 mg Tablet Extended Release 24 Hr 500 mg PO BIDCM Qty: 0 RF: 0 Lantus Solostar U-100 Insulin 100 unit/mL (3 mL) Insulin Pen 15 units subcut BID Qty: 0 RF: 0 Eliquis 5 mg Tablet 5 mg PO BID Qty: 0 RF: 0 potassium chloride 20 mEq tablet,ER particles/crystals 40 meq PO BID Qty: 1 RF: 0 Primary Care Provider: Nena Calvillo Referrals: Nena Calvillo MD [Primary Care Provider] - Disposition Disposition: Acute Care Hospital [facility]
[2021-07-08 21:25] LABS: Hematocrit 35.7 % (37-47); Hemoglobin 11.7 g/dL (12.0-15.0); Mean Corp Hgb Conc 32.8 g/dL (32-36); Mean Corpuscular Hgb 29.2 pg (27.0-32.0); Mean Platelet Vol. 11.1 fl (6.2-12.0); POSITIVE COUNT YES; POSITIVE MORPHOLOGY YES; Platelet Count 518 K/mm3 (150-450); RBC Distribution Width CV 12.6 % (11.6-14.6); RBC Distribution Width SD 41.1 fl (35.1-43.9); Red Blood Count 4.01 M/mm3 (4.2-5.4); White Blood Count 17.4 K/mm3 (4.4-11.0)
[2021-07-08 21:36] LABS: Differential Indicated MANUAL DIFF
[2021-07-08 21:39] LABS: Anion Gap 9 (5-15); BUN 73 mg/dL (7-18); BUN/Creat Ratio 50.7 RATIO (10-20); Calcium,Total 9.7 mg/dL (8.5-10.1); Chloride 99 mmol/L (98-107); Creatinine, Serum 1.44 mg/dL (0.55-1.02); EST Glomerular Filtration Rate 39 mL/min (>60); Est Glom Filt Rate - Afr Amer 47 mL/min (>60); Estimated Creatinine Clearance 33.19 ml/min; Glucose 182 mg/dL (74-106); Potassium 4.9 mmol/L (3.5-5.1); Sodium Level 133 mmol/L (136-145); Troponin-I HS 21 pg/mL (3.0-54.0)
[2021-07-08] MEDS: Metoprolol Tartrate 5 MG/5 ML Vial IV (21:46)
[2021-07-08 21:48] LABS: Lactic Acid 3.5 mmol/L (0.4-1.9)
[2021-07-08 21:52] LABS: Lymphocyte 14 % (19-41); Metamyelocyte 4 % (0-1); Monocyte 11 % (0-10); Myelocyte 4 % (0-0); Neutrophil-Band 3 % (0-5); Neutrophil-Segmented 64 % (47-70); Total Cells Counted 100 (MANUAL DIFF)
[2021-07-08 21:56] LABS: Absolute Lymphocyte Count 2.44 X10^3/uL (0.83-4.51); Absolute Neutrophil Count 11.7 X10^3/uL (2.0-7.7); Anisocytosis RARE; Macrocytosis RARE; Platelet Estimate MOD INC (ADEQ); Red Cell Morphology N CHROM NORMAL (NORM C&C)
[2021-07-08 22:01] LABS: BNP,B-Type NATRIURETIC PEPTIDE 67.4 pg/mL (0-100)
[2021-07-08 22:20] LABS: Blood Gas Specimen Type VEN; VBG BASE EXCESS 0 mmol/L (-1.0-3.5); VBG Bicarbonate 24 mmol/L (22-26); VBG PO2 98 mmHg (25-40); VBG SO2 98 % (50-70); VBG TCO2 25 mmol/L (23-33); VBG pCO2 35.9 mmHg (41-51); VBG pH 7.44 (7.32-7.42)
--- NOTE | 2021-07-08 23:09 | HP.PCM.HOS_ITS ---
HPI - General General Date of Admission: 07/08/21 Date of Service: 07/08/21 Chief Complaint: confusion. HPI Narrative ELISABET VAUGHAN, is a 66 F who presents with confusion. In ED, had low BP of 97/52 and tachycardia into 150s. Received a 1x dose of IV metoprolol and 500 cc of saline. BP and HR have subsequently improved. Patient was discharged on after 10-day stay with COVID-19. Patient has completed her quarantine for COVID-19. Patient states that her taste is altered since trina Covid where things taste like metal. She states that she is not eating much because of this. Patient did have an elevated lactic acid as well. [facility] Medical History Anxiety Atherosclerotic heart disease of [place] coronary artery without angina pectoris Chest pain Depression Essential hypertension Hx of non-ST elevation myocardial infarction (NSTEMI) Hyperlipidemia NSTEMI (non-ST elevated myocardial infarction) Old myocardial infarction Presence of stent in coronary artery (~12/28/18) S/P coronary artery stent placement (~12/28/18) Tachycardia Type 2 diabetes mellitus Unstable angina Urinary tract infection Home Medications acetaminophen [Tylenol] 650 mg PO Q6H PRN PRN #0 tab 07/06/21 [Rx Last Taken Unknown] apixaban [Eliquis] 5 mg PO BID #0 tab 07/06/21 [Rx Last Taken Unknown] aspirin 81 mg PO DAILY #0 tab 07/06/21 [Rx Last Taken Unknown] atorvastatin 10 mg PO QHS #0 tab 07/06/21 [Rx Last Taken Unknown] clopidogrel 75 mg PO DAILY #0 tab 07/06/21 [Rx Last Taken Unknown] fluoxetine 40 mg PO DAILY #0 cap 07/06/21 [Rx Last Taken Unknown] furosemide 40 mg PO BIDLX #0 tab 07/06/21 [Rx Last Taken Unknown] insulin glargine [Lantus Solostar U-100 Insulin] 15 units SUBCUT BID #0 ml 07/06/21 [Rx Last Taken Unknown] lisinopril 5 mg PO DAILY #0 tab 07/06/21 [Rx Last Taken Unknown] metformin 500 mg PO BIDCM #0 tab 07/06/21 [Rx Last Taken Unknown] metoprolol tartrate 50 mg PO BID #0 tab 07/06/21 [Rx Last Taken Unknown] potassium chloride 40 meq PO BID #1 tab 07/06/21 [Rx Last Taken Unknown] Allergy/AdvReac Type Severity Reaction Status Date / Time Sulfa (Sulfonamide Allergy Hives Verified 07/08/21 20:29 Antibiotics) Surgical History History of cholecystectomy Presence of coronary angioplasty implant and graft (~12/28/18) Social History [facility] prison Smoking Status: Former smoker alcohol intake: never substance use type: does not use caffeine: No ROS ROS Narrative Coughing but nonproductive. Has a wound on her backside. All review of systems were negative except as mentioned above in the history of present illness and the other review of systems. Vital Signs Vital Signs Vital Signs: 07/08/21 20:30 07/08/21 21:29 07/08/21 21:32 Temperature 35.8 C L 36.1 C L Temperature Source Temporal Temporal Pulse Rate 120 H 120 H Respiratory Rate 22 H 20 H Respiratory Effort Normal Respiratory Depth Shallow Respiratory Pattern Tachypnea Blood Pressure 142/118 H 97/52 L Blood Pressure Mean 126 67 Pulse Ox 100 98 Oxygen Delivery Method Nasal Cannula Nasal Cannula Nasal Cannula Oxygen Flow Rate (L/min) 4 3 3 07/08/21 21:49 07/08/21 22:04 07/08/21 22:18 Temperature 36.9 C Temperature Source Temporal Pulse Rate 115 H 98 107 H Respiratory Rate 20 H Respiratory Effort Respiratory Depth Respiratory Pattern Blood Pressure 115/72 99/71 101/73 Blood Pressure Mean 86 80 82 Pulse Ox 99 Oxygen Delivery Method Nasal Cannula Oxygen Flow Rate (L/min) 4 07/08/21 22:51 Temperature 35.6 C L Temperature Source Temporal Pulse Rate 104 H Respiratory Rate 22 H Respiratory Effort Respiratory Depth Respiratory Pattern Blood Pressure 106/65 Blood Pressure Mean 78 Pulse Ox 99 Oxygen Delivery Method Nasal Cannula Oxygen Flow Rate (L/min) 4 Weight Weight: 103.4 kg Body Mass Index (BMI) 39.1 Physical Exam Const alert and no apparent distress General Appearance: cooperative HEENT normocephalic HEENT Narrative: Mucous membranes dry Neck no lymphadenopathy and no JVD Resp normal respiratory effort, no retractions, no use of accessory muscles and clear to auscultation bilaterally Cardio Cardio Narrative: Irregularly irregular GI normal to inspection, nondistended, normoactive bowel sounds, soft to palpation, non-tender and non-distended Extremity normal to inspection Skin no petechiae and no mottling Skin Narrative: Dry skin. Bruising on left side of abdomen. Neuro Sensorium / Orientation: awake and alert Results Lab / Micro Data Attestation: I reviewed the patient's lab results. Result Diagrams: 07/08/21 20:40 07/08/21 20:40 Labs: Laboratory Results - last 24 hr 07/08/21 20:40: WBC 17.4 H, RBC 4.01 L, Hgb 11.7 L, Hct 35.7 L, MCV 89.0, MCH 29.2, MCHC 32.8, RDW Std Deviation 41.1, RDW Coeff of Maritza 12.6, Plt Count 518 H, MPV 11.1, Neut % (Auto) Not Reportable, Absolute Neuts (auto) 11.7 H, Absolute Lymphs (auto) 2.44, Total Counted 100, Neutrophils % (Manual) 64, Band Neutrophils % 3, Lymphocytes % (Manual) 14 L, Monocytes % (Manual) 11 H, Metamyelocytes % 4 H, Myelocytes % 4 H, Diff Path Review May foll, Platelet Estimate MOD INC, RBC Morphology N CHROM, Anisocytosis RARE, Macrocytosis RARE 07/08/21 20:40: Sodium 133 L, Potassium 4.9, Chloride 99, Carbon Dioxide 25.0, Anion Gap 9, BUN 73 H, Creatinine 1.44 H, Estim Creat Clear Calc 33.19, Est GFR (MDRD) Af Amer 47 L, Est GFR (MDRD) Non-Af 39 L, BUN/Creatinine Ratio 50.7 H, Glucose 182 H, Calcium 9.7, Troponin I High Sens 21 07/08/21 20:40: Lactic Acid 3.5 H* 07/08/21 20:40: B-Natriuretic Peptide 67.4 ABG Data ABG results: ABG 07/08/21 22:11 Specimen Type ANGEL VBG pH 7.44 H VBG pO2 98 H VBG HCO3 24 VBG Total CO2 25 VBG O2 Sat (Calc) 98 H VBG Base Excess 0 POC Mix VBG pCO2 Pt Tmp 35.9 L Radiology Impression Chest X-Ray 07/08/21 21:09 IMPRESSION: Findings which may be consistent with Covid 19 pneumonia. No significant change since prior study Electronically Signed: Barrington Sanchez MD at 21:52 EDT , Service support , Assessment & Plan Assessment/Plan (1) Paroxysmal atrial fibrillation with RVR: (2) PATRIC (acute kidney injury): (3) Metabolic encephalopathy: PLAN: 1. Atrial fibrillation with RVR * Transient but still in A. fib but more rate controlled at this time. * Patient developed atrial fibrillation * Continue with metoprolol tartrate. She did receive IV metoprolol in the emergency room but will hold off any additional dosing at this time. * Continue with anticoagulation with apixaban * Echocardiogram from 26 June showed an EF of 55%. 2. Acute kidney injury * Likely prerenal * Will give patient another liter of IV fluids. * Hold furosemide * , Caution with IV fluids as patient has had COVID-19 3. Metabolic encephalopathy * Related with dehydration as well as convalescing from her recent bout of COVID-19. * Avoid potentiating medications. 4. Recent COVID-19 * Patient has completed isolation * Advised that this is going to be a protracted course in regards to her overall recovery. 5. Lactic acidosis * I do not feel the patient has septic shock * Certainly skewed being that she is on Metformin. 6. Diabetes mellitus type 2 * Continue with glargine * + Scale insulin * Hold Metformin given lactic acidosis 7. VTE prophylaxis: Not indicated as patient is already on apixaban 8. CODE STATUS: Addressed with the patient. Patient is full code. DW patient's dtr at bedside. Charges/Coding Visit Charges OBSV E&M: 26890 Initial observation care L3
--- NOTE | 2021-07-08 23:33 | PCS.PANDOC ---
PANDEMIC DOCUMENTATION INITIATED: Date: 04/22/2021 Time: 190
[2021-07-08] MEDS: 0.9% Saline Lock 10 ML Syringe IV (23:58)
[2021-07-08] MEDS: 0.9% Normal Saline 1,000 ML 150 ML IV (23:59)
[2021-07-09] VITALS (13 sets, daily range): BP systolic 92–123; BP diastolic 61–67; PULSE 89–102; RESP 16–20; TEMP 35.9–36.7; O2SAT 91–99
[2021-07-09 01:21] LABS: Reflex Lactate? Y
[2021-07-09 03:20] LABS: Lactic Acid 0.6 mmol/L (0.4-1.9)
--- NOTE | 2021-07-09 03:48 | ED.RN ---
AVENUE CALLED TO INQUIRE ABOUT ADMISSION STATUS, INFORMED OF ADMIT AND REASON
[2021-07-09 05:38] LABS: Hematocrit 31.6 % (37-47); Hemoglobin 10.3 g/dL (12.0-15.0); Mean Corp Hgb Conc 32.6 g/dL (32-36); Mean Corpuscular Hgb 29.3 pg (27.0-32.0); Mean Platelet Vol. 10.8 fl (6.2-12.0); POSITIVE COUNT YES; POSITIVE MORPHOLOGY YES; Platelet Count 353 K/mm3 (150-450); RBC Distribution Width CV 12.7 % (11.6-14.6); RBC Distribution Width SD 41.6 fl (35.1-43.9); Red Blood Count 3.51 M/mm3 (4.2-5.4); White Blood Count 12.2 K/mm3 (4.4-11.0)
[2021-07-09 06:09] LABS: Differential Indicated MANUAL DIFF
[2021-07-09 06:16] LABS: Anion Gap 7 (5-15); BUN 67 mg/dL (7-18); BUN/Creat Ratio 60.4 RATIO (10-20); Calcium,Total 8.7 mg/dL (8.5-10.1); Chloride 102 mmol/L (98-107); Creatinine, Serum 1.11 mg/dL (0.55-1.02); EST Glomerular Filtration Rate 52 mL/min (>60); Est Glom Filt Rate - Afr Amer 63 mL/min (>60); Estimated Creatinine Clearance 43.05 ml/min; Glucose 114 mg/dL (74-106); Potassium 3.9 mmol/L (3.5-5.1); Sodium Level 136 mmol/L (136-145)
[2021-07-09 06:56] LABS: Bedside Glucose 106 mg/dL (70-110)
[2021-07-09 07:05] LABS: Absolute Lymphocyte Count 4.15 X10^3/uL (0.83-4.51); Absolute Neutrophil Count 6.8 X10^3/uL (2.0-7.7); Atypical Lymphocyte 2+ %; Eosinophil 1 % (0-5); Lymphocyte 34 % (19-41); Metamyelocyte 2 % (0-1); Monocyte 5 % (0-10); Myelocyte 2 % (0-0); Neutrophil-Band 7 % (0-5); Neutrophil-Segmented 49 % (47-70)
[2021-07-09 07:06] LABS: Platelet Estimate ADEQUATE (ADEQ); Red Cell Morphology NORM C+C NORMAL (NORM C&C)
--- NOTE | 2021-07-09 09:19 | CASEMGMT ---
Patient is known to this SW from recent admission. Patient went to [facility] at [place]. SW spoke with patient and confirmed the plan is for her to return to [facility] to continue her rehab. SW faxed updates to [facility]. Marizol PIERCE
[2021-07-09] MEDS: Metoprolol Tartrate 50 MG Tablet PO ×2 (10:18→19:44)
[2021-07-09] MEDS: Lisinopril 5 MG Tablet PO (10:18)
[2021-07-09] MEDS: APIXABAN 5 MG TABLET PO ×2 (10:18→19:45)
[2021-07-09] MEDS: Clopidogrel Bisulfate 75 MG Tablet PO (10:18)
[2021-07-09] MEDS: FLUoxetine 20 MG Capsule 40 MG PO (10:18)
[2021-07-09] MEDS: Aspirin E.C. 81 MG Tablet PO (10:18)
[2021-07-09 10:30] LABS: Bedside Glucose 110 mg/dL (70-110)
[2021-07-09] MEDS: Insulin Lispro 100 UNIT/ML INSULN.PEN SC ×2 (12:01→17:37)
--- NOTE | 2021-07-09 12:57 | PCM.PN.HOSP ---
Documented by User: Diogo LUCIA 07/09/21 13:04 Subjective Subjective Patient is a 66-year-old female comfortably resting in bed, alert and orient x3. Patient reports improvement in her confusion on admission. Denies development of any new symptoms overnight. Does not appear in acute distress. Objective Data Objective Data Vital Signs: Vital Signs Temp Pulse Resp BP Pulse Ox 97 F L 101 H 16 123/67 H 97 07/09/21 09:59 07/09/21 10:18 07/09/21 09:59 07/09/21 09:59 07/09/21 09:59 Oxygen Flow Rate (L/min) 2 Oxygen Delivery Method Nasal Cannula Weight: 218 lb 14.704 oz Body Mass Index (BMI) 37.5 Intake & Output: Intake and Output for Last 24 Hours 07/07/21 07/08/21 07/09/21 23:59 23:59 23:59 Intake Total 500 / 500 1240 / 1240 Output Total 1500 / 1500 Balance 500 / 500 -260 / -260 Lab / Micro Data Result Diagrams: 07/09/21 05:12 07/09/21 05:12 Labs: Laboratory Results - last 24 hr 07/08/21 20:40: WBC 17.4 H, RBC 4.01 L, Hgb 11.7 L, Hct 35.7 L, MCV 89.0, MCH 29.2, MCHC 32.8, RDW Std Deviation 41.1, RDW Coeff of Maritza 12.6, Plt Count 518 H, MPV 11.1, Neut % (Auto) Not Reportable, Absolute Neuts (auto) 11.7 H, Absolute Lymphs (auto) 2.44, Total Counted 100, Neutrophils % (Manual) 64, Band Neutrophils % 3, Lymphocytes % (Manual) 14 L, Monocytes % (Manual) 11 H, Metamyelocytes % 4 H, Myelocytes % 4 H, Diff Path Review May foll, Platelet Estimate MOD INC, RBC Morphology N CHROM, Anisocytosis RARE, Macrocytosis RARE 07/08/21 20:40: Sodium 133 L, Potassium 4.9, Chloride 99, Carbon Dioxide 25.0, Anion Gap 9, BUN 73 H, Creatinine 1.44 H, Estim Creat Clear Calc 33.19, Est GFR (MDRD) Af Amer 47 L, Est GFR (MDRD) Non-Af 39 L, BUN/Creatinine Ratio 50.7 H, Glucose 182 H, Calcium 9.7, Troponin I High Sens 21 07/08/21 20:40: Lactic Acid 3.5 H* 07/08/21 20:40: B-Natriuretic Peptide 67.4 07/09/21 02:30: Lactic Acid 0.6 07/09/21 05:12: WBC 12.2 H, RBC 3.51 L, Hgb 10.3 L, Hct 31.6 L, MCV 90.0, MCH 29.3, MCHC 32.6, RDW Std Deviation 41.6, RDW Coeff of Maritza 12.7, Plt Count 353, MPV 10.8, Neut % (Auto) Not Reportable, Absolute Neuts (auto) 6.8, Absolute Lymphs (auto) 4.15, Neutrophils % (Manual) 49, Band Neutrophils % 7 H, Lymphocytes % (Manual) 34, Monocytes % (Manual) 5, Eosinophils % (Manual) 1, Metamyelocytes % 2 H, Myelocytes % 2 H, Diff Path Review May foll, Atypical Lymphocytes 2+, Platelet Estimate ADEQUATE, RBC Morphology NORM C+C 07/09/21 05:12: Sodium 136, Potassium 3.9, Chloride 102, Carbon Dioxide 27.0, Anion Gap 7, BUN 67 H, Creatinine 1.11 H, Estim Creat Clear Calc 43.05, Est GFR (MDRD) Af Amer 63, Est GFR (MDRD) Non-Af 52 L, BUN/Creatinine Ratio 60.4 H, Glucose 114 H, Calcium 8.7 07/09/21 06:49: POC Glucose 106 07/09/21 10:14: POC Glucose 110 ABG Data ABG results: ABG 07/08/21 22:11 Specimen Type ANGEL VBG pH 7.44 H VBG pO2 98 H VBG HCO3 24 VBG Total CO2 25 VBG O2 Sat (Calc) 98 H VBG Base Excess 0 POC Mix VBG pCO2 Pt Tmp 35.9 L Radiography Diagnostic Testing: Radiology Impression Chest X-Ray 07/08/21 21:09 IMPRESSION: Findings which may be consistent with Covid 19 pneumonia. No significant change since prior study Electronically Signed: Barrington Sanchez MD at 21:52 EDT , Service support , Physical Exam Const alert, oriented x3 and no apparent distress HEENT head/scalp atraumatic and moist oral mucous membranes Head and Scalp: normocephalic Eyes PERRL, EOMs intact bilaterally and conjunctivae normal Neck no lymphadenopathy, supple and no JVD Resp normal respiratory effort, no retractions, no use of accessory muscles and clear to auscultation bilaterally Cardio regular rate, regular rhythm, no murmurs and no JVD GI normal to inspection, nondistended, normoactive bowel sounds, soft to palpation and non-tender Extremity normal to inspection, full ROM and no clubbing, cyanosis or edema Peripheral Pulses: Yes pulses 2+ throughout Skin no rashes or lesions noted, no wounds, skin turgor normal and no jaundice Neuro CN's II-XII intact bilaterally Psych affect normal Assessment & Plan Assessment/Plan (1) Metabolic encephalopathy: (2) PATRIC (acute kidney injury): (3) Paroxysmal atrial fibrillation with RVR: PLAN: Day 1 Discharge planning: Current plan is for patient to discharge home when medically ready. 1) atrial fibrillation with RVR Patient with periods of normal sinus rhythm and tachycardia. Controlled on metoprolol 50 mg p.o. twice daily and is anticoagulated on Xarelto. Recent echocardiogram from earlier this month showed a ejection fraction of 55%. Continue rate control and anticoagulation. 2) PATRIC Creatinine improved from admission, currently 1.1. Continue to monitor BMP. Hold home furosemide. 3) metabolic encephalopathy Resolved from admission. Likely related to poor oral intake prior to admission. Continue to hold metformin. 4) recent COVID-19 infection Quarantine complete. Denies any infectious symptoms. Does still continue to feel weak. 5) lactic acidosis Observed on admission, currently 0.6. Continue to hold Metformin. 6) DM2 Continue with glargine, hold patient Metformin, Accu-Cheks with sliding scale insulin ordered. DVT prophylaxis - Xarelto. Patient seen by Diogo Day PA-C, under the supervision of Dr. Flynn. Documented by User: Dr. Inga Flynn MD 07/09/21 16:30 Objective Data Lab / Micro Data Result Diagrams: 07/09/21 05:12 07/09/21 05:12 Charges/Coding Addendum Addendum: Patient seen by Diogo Day PA-C under my supervision Patient seen and examined. She was admitted overnight with a complaint of confusion as well as tachycardia and low blood pressure. Heart rate improved after she received a dose of metoprolol. Patient was recently discharged after an extended stay in the hospital for COVID-19 pneumonia and acute hypoxic respiratory failure. She is feeling much better today. She states that her confusion has resolved and she does not feel as weak as she did yesterday. Review of systems otherwise negative. O/E: Const alert and no apparent distress General Appearance: cooperative HEENT normocephalic HEENT Narrative: Mucous membranes dry Neck no lymphadenopathy and no JVD Resp normal respiratory effort, no retractions, no use of accessory muscles and clear to auscultation bilaterally Cardio Cardio Narrative: Irregularly irregular, afib, rate controlled. GI normal to inspection, nondistended, normoactive bowel sounds, soft to palpation, non-tender and non-distended Extremity normal to inspection Skin no petechiae and no mottling Skin Narrative: Dry skin. Bruising on left side of abdomen. Neuro Sensorium / Orientation: awake and alert Patient is being managed for A. fib with RVR which has improved. Patient on p.o. metoprolol and will continue. On Eliquis. Lasix on hold due to PATRIC. Continue gentle hydration with IV fluids. PT OT on board. Fall precautions. Metformin on hold on account of lactic acidosis. Creatinine is trended down to 1.1. Rest as per Diogo Day PA-C' notes which I reviewed and endorsed. Visit Charges Inpatient E&M: 41541 Subs Hosp L2
[2021-07-09 13:20] LABS: Bedside Glucose 182 mg/dL (70-110)
[2021-07-09 13:51] LABS: Pathologist Review Reviewed
--- NOTE | 2021-07-09 13:51 | WOUNDNOTE ---
wound photo: right buttock
[2021-07-09 14:03] LABS: Pathologist Review Reviewed
--- NOTE | 2021-07-09 14:38 | CASEMGMT ---
GER[place]IA spoke with patient and her daughter Aundrea per their request. Aundrea said she does not want patient to go back to [place]. She and patient were not happy with her care. Patient agreed with this. Patient would like to go to [facility]. SW told them SW can find out and let them know. GERMANIA asked Aundrea if she talked with anyone at [facility] [place] and she has not. GERMANIA gave Aundrea the phone number to the [facility]. GERMANIA called Mireya regarding referral. Await response. GERMANIA let patient and Aundrea know that [facility] is waiting on a call from TCU indicating whether or not they can accept patient. Marizol Randall ACCOUNT DEVELOPMENT MANAGER STAN
--- NOTE | 2021-07-09 14:50 | CASEMGMT ---
JUANCARLOS HOFF in to completed LINCOLN form with patient. RN KAVYA explained LINCOLN form to patient, patient voiced understanding. Patient signed LINCOLN form and filed in chart. Patient provided with copy of signed LINCOLN form. Patient had no further questions or concerns at this time.
--- NOTE | 2021-07-09 16:24 | CASEMGMT ---
GER[place]IA spoke with Mireya in TCU and they can take patient when ready. GERMANIA notified patient and her daughter, Aundrea. Plan: d/c to [facility] Marizol PIERCE
[2021-07-09] MEDS: Juven (unflavored) Packet 1 PACKET PO (17:41)
[2021-07-09 18:16] LABS: Bedside Glucose 162 mg/dL (70-110)
[2021-07-09] MEDS: Atorvastatin Calcium 10 MG Tablet PO (19:44)
--- NOTE | 2021-07-09 19:47 | NURSING ---
Pt c/o feeling very tired. meds given early per request
[2021-07-09 21:06] LABS: Bedside Glucose 171 mg/dL (70-110)
[2021-07-10] VITALS (9 sets, daily range): BP systolic 92–107; BP diastolic 49–68; PULSE 69–165; RESP 16–18; TEMP 36.4–36.7; O2SAT 92–97
[2021-07-10 06:50] LABS: Bedside Glucose 141 mg/dL (70-110)
[2021-07-10 07:54] LABS: Hematocrit 31.5 % (37-47); Hemoglobin 10.3 g/dL (12.0-15.0); Mean Corp Hgb Conc 32.7 g/dL (32-36); Mean Corpuscular Hgb 29.5 pg (27.0-32.0); Mean Corpuscular Volume 90.3 fL (81-99); Mean Platelet Vol. 10.8 fl (6.2-12.0); POSITIVE COUNT YES; POSITIVE MORPHOLOGY YES; Platelet Count 390 K/mm3 (150-450); RBC Distribution Width CV 12.9 % (11.6-14.6); RBC Distribution Width SD 41.8 fl (35.1-43.9); Red Blood Count 3.49 M/mm3 (4.2-5.4); White Blood Count 10.8 K/mm3 (4.4-11.0)
[2021-07-10 08:08] LABS: Differential Indicated MANUAL DIFF
[2021-07-10 08:27] LABS: Anion Gap 5 (5-15); BUN 46 mg/dL (7-18); BUN/Creat Ratio 53.6 RATIO (10-20); Calcium,Total 9.4 mg/dL (8.5-10.1); Chloride 102 mmol/L (98-107); Creatinine, Serum 0.86 mg/dL (0.55-1.02); EST Glomerular Filtration Rate 70 mL/min (>60); Est Glom Filt Rate - Afr Amer 85 mL/min (>60); Estimated Creatinine Clearance 55.57 ml/min; Glucose 145 mg/dL (74-106); Sodium Level 135 mmol/L (136-145)
[2021-07-10] MEDS: Juven (unflavored) Packet 1 PACKET PO ×2 (09:08→16:02)
[2021-07-10] MEDS: FLUoxetine 20 MG Capsule 40 MG PO (09:10)
[2021-07-10] MEDS: Aspirin E.C. 81 MG Tablet PO (09:10)
[2021-07-10] MEDS: Clopidogrel Bisulfate 75 MG Tablet PO (09:10)
[2021-07-10] MEDS: APIXABAN 5 MG TABLET PO (09:10)
[2021-07-10 10:11] LABS: Basophil 1 % (0-1); Lymphocyte 16 % (19-41); Metamyelocyte 4 % (0-1); Monocyte 9 % (0-10); Neutrophil-Segmented 69 % (47-70); Platelet Estimate ADEQUATE (ADEQ); Promyelocyte 1 % (0-0); Red Cell Morphology NORM C+C NORMAL (NORM C&C); Total Cells Counted 100 (MANUAL DIFF)
[2021-07-10 10:13] LABS: Absolute Neutrophil Count 7.5 X10^3/uL (2.0-7.7)
[2021-07-10] MEDS: Insulin Lispro 100 UNIT/ML INSULN.PEN SC ×2 (10:58→16:02)
[2021-07-10 11:05] LABS: Bedside Glucose 272 mg/dL (70-110)
--- NOTE | 2021-07-10 11:12 | TREXTCAR_ITS ---
Documented by User: Diogo LUCIA 07/10/21 11:16 Diet 07/08/21 23:28 Diet: Cardiac: Calorie-Controlled Food consistency:: Regular Liquid Consistency:: Regular/Thin Dietary Modifications:: Consistent Carbohydrate How many daily calories?: 1800 calorie Wound(s) coccyx: Wound Type: Pressure Injury right buttock: Wound Type: Pressure Injury Therapies Physical Therapy: Eval and Treat Occupational Therapy: Eval and Treat Speech Therapy: Eval and Treat Problem/Diagnosis (1) Metabolic encephalopathy: Status: Acute (2) PATRIC (acute kidney injury): Status: Acute (3) Paroxysmal atrial fibrillation with RVR: Status: Chronic Allergies/Procedures Done in Hospital Allergies Sulfa (Sulfonamide Antibiotics) Allergy (Verified 07/08/21 20:29) Hives Type of Care/Length of Stay Estimated LOS: Convalescent Care Less Than 30 days Type of Care Needed: Skilled Rehab Potential: Good Prognosis: Good Additional Orders/Day of Discharge Day of Discharge: 07/10/21 Dietary and Speech Recommendations Dietitian Recommendations/Changes: Continue 1800 calorie; consistent carbohydra te; cardiac diet. Will add Santos BID for wound healing. Additional ONS if intake fails at meals. Discharge Plan Admission Admit Date/Time: 07/08/21 23:03 Primary Reason for Your Visit: Atrial fibrillation Attending Provider: Inga Flynn Primary Care Provider: Nena Calvillo Discharge Orders/Prescriptions Prescriptions: Continued furosemide 40 mg Tablet 40 mg PO BIDLX Qty: 0 RF: 0 acetaminophen [Tylenol] 325 mg Tablet 650 mg PO Q6H PRN PRN (Reason: Headache/Fever (T>100f)) Qty: 0 RF: 0 atorvastatin 10 mg Tablet 10 mg PO QHS Qty: 0 RF: 0 clopidogrel 75 mg Tablet 75 mg PO DAILY Qty: 0 RF: 0 aspirin 81 mg Tablet,Delayed Release (Dr/Ec) 81 mg PO DAILY Qty: 0 RF: 0 metoprolol tartrate 50 mg Tablet 50 mg PO BID Qty: 0 RF: 0 lisinopril 5 mg Tablet 5 mg PO DAILY Qty: 0 RF: 0 fluoxetine 20 mg Capsule 40 mg PO DAILY Qty: 0 RF: 0 metformin 500 mg Tablet Extended Release 24 Hr 500 mg PO BIDCM Qty: 0 RF: 0 Lantus Solostar U-100 Insulin 100 unit/mL (3 mL) Insulin Pen 15 units subcut BID Qty: 0 RF: 0 Eliquis 5 mg Tablet 5 mg PO BID Qty: 0 RF: 0 potassium chloride 20 mEq tablet,ER particles/crystals 40 meq PO BID Qty: 1 RF: 0 Referrals / Follow Up: Nena Calvillo MD [Primary Care Provider] - Within 2 Weeks Wisam Díaz MD [STAFF PHYSICIAN] - Within 2 Weeks Disposition Disposition (needs filled in before D/C Order can be placed): Home, Self Care Documented by User: Dr. Inga Flynn MD 07/10/21 11:48 Allergies/Procedures Done in Hospital Allergies Sulfa (Sulfonamide Antibiotics) Allergy (Verified 07/08/21 20:29) Hives Discharge Plan Admission Admit Date/Time: 07/08/21 23:03 Primary Reason for Your Visit: Atrial fibrillation Attending Provider: Inga Flynn Primary Care Provider: Nena Calvillo Discharge Orders/Prescriptions Prescriptions: Continued furosemide 40 mg Tablet 40 mg PO BIDLX Qty: 0 RF: 0 acetaminophen [Tylenol] 325 mg Tablet 650 mg PO Q6H PRN PRN (Reason: Headache/Fever (T>100f)) Qty: 0 RF: 0 atorvastatin 10 mg Tablet 10 mg PO QHS Qty: 0 RF: 0 clopidogrel 75 mg Tablet 75 mg PO DAILY Qty: 0 RF: 0 aspirin 81 mg Tablet,Delayed Release (Dr/Ec) 81 mg PO DAILY Qty: 0 RF: 0 metoprolol tartrate 50 mg Tablet 50 mg PO BID Qty: 0 RF: 0 lisinopril 5 mg Tablet 5 mg PO DAILY Qty: 0 RF: 0 fluoxetine 20 mg Capsule 40 mg PO DAILY Qty: 0 RF: 0 metformin 500 mg Tablet Extended Release 24 Hr 500 mg PO BIDCM Qty: 0 RF: 0 Lantus Solostar U-100 Insulin 100 unit/mL (3 mL) Insulin Pen 15 units subcut BID Qty: 0 RF: 0 Eliquis 5 mg Tablet 5 mg PO BID Qty: 0 RF: 0 potassium chloride 20 mEq tablet,ER particles/crystals 40 meq PO BID Qty: 1 RF: 0 Referrals / Follow Up: Nena Calvillo MD [Primary Care Provider] - Within 2 Weeks Wisam Díaz MD [STAFF PHYSICIAN] - Within 2 Weeks Disposition Disposition (needs filled in before D/C Order can be placed): Home, Self Care
--- NOTE | 2021-07-10 11:25 | PHA.DC.MR ---
Pharmacy Service has performed discharge medication reconciliation for this patient. The patient's discharge medication list was reviewed for discrepancies and discrepancies were resolved. Home Medications Eliquis 5 mg PO BID #0 tab 07/06/21 Lantus Solostar U-100 Insulin 15 units SUBCUT BID #0 ml 07/06/21 acetaminophen [Tylenol] 650 mg PO Q6H PRN PRN #0 tab 07/06/21 aspirin 81 mg PO DAILY #0 tab 07/06/21 atorvastatin 10 mg PO QHS #0 tab 07/06/21 clopidogrel 75 mg PO DAILY #0 tab 07/06/21 fluoxetine 40 mg PO DAILY #0 cap 07/06/21 furosemide 40 mg PO BIDLX #0 tab 07/06/21 lisinopril 5 mg PO DAILY #0 tab 07/06/21 metformin 500 mg PO BIDCM #0 tab 07/06/21 metoprolol tartrate 50 mg PO BID #0 tab 07/06/21 potassium chloride 40 meq PO BID #1 tab 07/06/21
--- NOTE | 2021-07-10 13:38 | CASEMGMT ---
Patient is ready for discharge to TCU. GER[place]IA notified patient. SW also let patient know that there is no visitation on TCU until possibly 11-15 due to someone testing positive. Patient was still in agreement with TCU. GERMANIA called patient's daughter Aundrea and let her know patient will go to TCU today. SW also let Aundrea know that there is no visitation on TCU until maybe 11-15 due to someone testing positive. She was also still in agreement with patient going to TCU. GERMANIA called Monica at [facility] and let her know patient will not be returning. GERMANIA let Monica know patient and her daughter were unhappy with her care. Monica said someone will reach out to patient and or Aundrea. Plan: d/c to [facility] TCU under skilled level of care. Marizol PIERCE
--- NOTE | 2021-07-10 14:47 | PCM.DC.SUM ---
Documented by User: Diogo LUCIA 07/10/21 14:49 Providers Date of Admission: 07/08/21 Primary Care Physician: Dr. Nena Calvillo MD Consultations 07/08/21 23:28 Consult: Onc/Wound/lamination assembler Routine Comment: Reason For Visit: AFIB RVR, PATRIC Diagnosis Discharge Diagnosis (1) Metabolic encephalopathy: Status: Acute Code(s): G93.41 - Metabolic encephalopathy (2) PATRIC (acute kidney injury): Status: Acute Code(s): N17.9 - Acute kidney failure, unspecified (3) Paroxysmal atrial fibrillation with RVR: Status: Chronic Code(s): I48.0 - Paroxysmal atrial fibrillation Medications at Discharge Home Medications Eliquis 5 mg PO BID #0 tab 07/06/21 Lantus Solostar U-100 Insulin 15 units SUBCUT BID #0 ml 07/06/21 acetaminophen [Tylenol] 650 mg PO Q6H PRN PRN #0 tab 07/06/21 aspirin 81 mg PO DAILY #0 tab 07/06/21 atorvastatin 10 mg PO QHS #0 tab 07/06/21 clopidogrel 75 mg PO DAILY #0 tab 07/06/21 fluoxetine 40 mg PO DAILY #0 cap 07/06/21 furosemide 40 mg PO BIDLX #0 tab 07/06/21 lisinopril 5 mg PO DAILY #0 tab 07/06/21 metformin 500 mg PO BIDCM #0 tab 07/06/21 metoprolol tartrate 50 mg PO BID #0 tab 07/06/21 potassium chloride 40 meq PO BID #1 tab 07/06/21 Hospital Course Summary of Care Provided Minutes Spent on Discharge: 35 Hospital Course: Disposition: Patient to discharge to TCU for ongoing therapy. 1) atrial fibrillation with RVR Patient with periods of normal sinus rhythm and tachycardia. Rate control is complicated by patient's low blood pressure. Controlled on metoprolol 50 mg p.o. twice daily and is anticoagulated on Xarelto. Recent echocardiogram from earlier this month showed a ejection fraction of 55%. Continue current dose of Eliquis and metoprolol, follow-up with primary care provider and Dr. Díaz within the next 2 weeks. 2) PATRIC Resolved, creatinine currently 0.8. 3) metabolic encephalopathy Resolved from admission. Likely related to poor oral intake prior to admission. 4) recent COVID-19 infection Quarantine complete. Denies any infectious symptoms. Does still continue to feel weak. 5) lactic acidosis Observed on admission, currently 0.6. 6) DM2 Continue home diabetic regimen. Patient seen by Diogo Day PA-C, under the supervision of Dr. Flynn. Physical Exam Narrative Patient is a 66-year-old female company resting in bed, alert and orient x3. Patient reports chest pain for admission has resolved and denies development of any new symptoms overnight. Does not appear in acute distress. Denies chest pain, shortness of breath, palpitations, hemoptysis, sputum production, fever, chills, N/V/D. Const alert, oriented x3 and no apparent distress HEENT normocephalic, head/scalp atraumatic and hearing grossly normal bilaterally Eyes PERRL, EOMs intact bilaterally and conjunctivae normal Neck no lymphadenopathy, supple and no JVD Resp normal respiratory effort, no retractions, no use of accessory muscles and clear to auscultation bilaterally Cardio regular rate, regular rhythm, no murmurs and no JVD GI normal to inspection, nondistended, normoactive bowel sounds, soft to palpation and non-tender Extremity normal to inspection, full ROM and no clubbing, cyanosis or edema Skin no rashes or lesions noted, no wounds and skin turgor normal Neuro CN's II-XII intact bilaterally Psych affect normal Weight / BMI Weight Weight: 218 lb 14.704 oz Body Mass Index (BMI) 37.5 ABG / Lab / Microbiology Data Result Diagrams: 07/10/21 05:55 07/10/21 05:55 Laboratory: Laboratory Results - last 24 hr 07/09/21 17:36: POC Glucose 162 H 07/09/21 19:41: POC Glucose 171 H 07/10/21 05:55: WBC 10.8, RBC 3.49 L, Hgb 10.3 L, Hct 31.5 L, MCV 90.3, MCH 29.5, MCHC 32.7, RDW Std Deviation 41.8, RDW Coeff of Maritza 12.9, Plt Count 390, MPV 10.8, Neut % (Auto) Not Reportable, Absolute Neuts (auto) 7.5, Absolute Lymphs (auto) 1.70, Total Counted 100, Neutrophils % (Manual) 69, Lymphocytes % (Manual) 16 L, Monocytes % (Manual) 9, Basophils % (Manual) 1, Metamyelocytes % 4 H, Promyelocytes % 1 H, Diff Path Review May foll, Platelet Estimate ADEQUATE, RBC Morphology NORM C+C 07/10/21 05:55: Sodium 135 L, Potassium 4.0, Chloride 102, Carbon Dioxide 28.0, Anion Gap 5, BUN 46 H, Creatinine 0.86, Estim Creat Clear Calc 55.57, Est GFR (MDRD) Af Amer 85, Est GFR (MDRD) Non-Af 70, BUN/Creatinine Ratio 53.6 H, Glucose 145 H, Calcium 9.4 07/10/21 06:24: POC Glucose 141 H 07/10/21 10:57: POC Glucose 272 H Meaningful Use Info Meaningful Use Diagnoses (Choose all that apply): None applicable Discharge Plan Admission Admit Date/Time: 07/08/21 23:03 Primary Reason for Your Visit: Atrial fibrillation Attending Provider: Inga Flynn Primary Care Provider: Nena Calvillo Discharge Orders/Prescriptions Prescriptions: Continued furosemide 40 mg Tablet 40 mg PO BIDLX Qty: 0 RF: 0 acetaminophen [Tylenol] 325 mg Tablet 650 mg PO Q6H PRN PRN (Reason: Headache/Fever (T>100f)) Qty: 0 RF: 0 atorvastatin 10 mg Tablet 10 mg PO QHS Qty: 0 RF: 0 clopidogrel 75 mg Tablet 75 mg PO DAILY Qty: 0 RF: 0 aspirin 81 mg Tablet,Delayed Release (Dr/Ec) 81 mg PO DAILY Qty: 0 RF: 0 metoprolol tartrate 50 mg Tablet 50 mg PO BID Qty: 0 RF: 0 lisinopril 5 mg Tablet 5 mg PO DAILY Qty: 0 RF: 0 fluoxetine 20 mg Capsule 40 mg PO DAILY Qty: 0 RF: 0 metformin 500 mg Tablet Extended Release 24 Hr 500 mg PO BIDCM Qty: 0 RF: 0 Lantus Solostar U-100 Insulin 100 unit/mL (3 mL) Insulin Pen 15 units subcut BID Qty: 0 RF: 0 Eliquis 5 mg Tablet 5 mg PO BID Qty: 0 RF: 0 potassium chloride 20 mEq tablet,ER particles/crystals 40 meq PO BID Qty: 1 RF: 0 Referrals / Follow Up: Nena Calvillo MD [Primary Care Provider] - Within 2 Weeks Wisam Díaz MD [STAFF PHYSICIAN] - Within 2 Weeks Disposition Disposition (needs filled in before D/C Order can be placed): Home, Self Care Documented by User: Dr. Inga Flynn MD 07/10/21 16:40 Providers Date of Admission: 07/08/21 Reason For Visit: AFIB RVR, PATRIC Medications at Discharge Home Medications Eliquis 5 mg PO BID #0 tab 07/06/21 Lantus Solostar U-100 Insulin 15 units SUBCUT BID #0 ml 07/06/21 acetaminophen [Tylenol] 650 mg PO Q6H PRN PRN #0 tab 07/06/21 aspirin 81 mg PO DAILY #0 tab 07/06/21 atorvastatin 10 mg PO QHS #0 tab 07/06/21 clopidogrel 75 mg PO DAILY #0 tab 07/06/21 fluoxetine 40 mg PO DAILY #0 cap 07/06/21 furosemide 40 mg PO BIDLX #0 tab 07/06/21 lisinopril 5 mg PO DAILY #0 tab 07/06/21 metformin 500 mg PO BIDCM #0 tab 07/06/21 metoprolol tartrate 50 mg PO BID #0 tab 07/06/21 potassium chloride 40 meq PO BID #1 tab 07/06/21 ABG / Lab / Microbiology Data Result Diagrams: 07/10/21 05:55 07/10/21 05:55 Discharge Plan Admission Admit Date/Time: 07/08/21 23:03 Primary Reason for Your Visit: Atrial fibrillation Attending Provider: Inga Flynn Primary Care Provider: Nena Calvillo Discharge Orders/Prescriptions Prescriptions: Continued furosemide 40 mg Tablet 40 mg PO BIDLX Qty: 0 RF: 0 acetaminophen [Tylenol] 325 mg Tablet 650 mg PO Q6H PRN PRN (Reason: Headache/Fever (T>100f)) Qty: 0 RF: 0 atorvastatin 10 mg Tablet 10 mg PO QHS Qty: 0 RF: 0 clopidogrel 75 mg Tablet 75 mg PO DAILY Qty: 0 RF: 0 aspirin 81 mg Tablet,Delayed Release (Dr/Ec) 81 mg PO DAILY Qty: 0 RF: 0 metoprolol tartrate 50 mg Tablet 50 mg PO BID Qty: 0 RF: 0 lisinopril 5 mg Tablet 5 mg PO DAILY Qty: 0 RF: 0 fluoxetine 20 mg Capsule 40 mg PO DAILY Qty: 0 RF: 0 metformin 500 mg Tablet Extended Release 24 Hr 500 mg PO BIDCM Qty: 0 RF: 0 Lantus Solostar U-100 Insulin 100 unit/mL (3 mL) Insulin Pen 15 units subcut BID Qty: 0 RF: 0 Eliquis 5 mg Tablet 5 mg PO BID Qty: 0 RF: 0 potassium chloride 20 mEq tablet,ER particles/crystals 40 meq PO BID Qty: 1 RF: 0 Referrals / Follow Up: Nena Calvillo MD [Primary Care Provider] - Within 2 Weeks Wisam Díaz MD [STAFF PHYSICIAN] - Within 2 Weeks Disposition Disposition (needs filled in before D/C Order can be placed): Home, Self Care Charges/Coding Addendum Addendum: Patient seen by Paige DOWNS under my supervision Patient is a 66 y/o F with a PMh as outlined who was admitted via the ED with a complaint of altered mental status, as well as hypotension and tachycardia. She was recently discharged on 07/06/2021 after a 10 day stay with [facility] and discharged to SNF. She was noted to be in Afib with RVR, and also had mild PATRIC. Her acute metabolic encephalopathy was thought to be due to PATRIC. She was hydrated with IVF. Hypotension and tachycardia resolved, and PATRIC also resolved. Her mentation improved and she felt much better. She was discharged to SNF on 07/10/2021. Patient was seen and examined. She has no complaints today. Review of systems othewise negative. She has remained hemodynamically stable. O/E: Const alert, oriented x3 and no apparent distress HEENT head/scalp atraumatic and moist oral mucous membranes Head and Scalp: normocephalic Eyes PERRL, EOMs intact bilaterally and conjunctivae normal Neck no lymphadenopathy, supple and no JVD Resp normal respiratory effort, no retractions, no use of accessory muscles and clear to auscultation bilaterally Cardio regular rate, regular rhythm, no murmurs and no JVD GI normal to inspection, nondistended, normoactive bowel sounds, soft to palpation and non-tender Extremity normal to inspection, full ROM and no clubbing, cyanosis or edema Peripheral Pulses: Yes pulses 2+ throughout Skin no rashes or lesions noted, no wounds, skin turgor normal and no jaundice Neuro CN's II-XII intact bilaterally Psych affect normal Plan is for discharge today ad outlined. Rest as per Diogo Day PA-C's note, which I have reviewed and endorsed. Visit Charges Inpatient E&M: 48652 Disch Hosp
[2021-07-10 16:10] LABS: Bedside Glucose 161 mg/dL (70-110)
[2021-07-12 09:18] LABS: Pathologist Review Reviewed
== END 2021-07-10 11:16 ==
LOC: ED 22:43 → PCU 07-09 02:53
PROVIDERS: Physician Assistant; Emergency Provider Emergency Medicine; PCP Internal Medicine; Visit Provider Student in an Organized Health Care Education/Training Program
DX: I48.0 Paroxysmal atrial fibrillation (principal); N17.9 Acute kidney failure, unspecified; G93.41 Metabolic encephalopathy; I25.10 Atherosclerotic heart disease of native coronary artery without angina pectoris; I10 Essential (primary) hypertension; I25.2 Old myocardial infarction; E78.5 Hyperlipidemia, unspecified; E11.9 Type 2 diabetes mellitus without complications; I95.9 Hypotension, unspecified; R06.02 Shortness of breath; E86.0 Dehydration; Z79.4 Long term (current) use of insulin; Z79.82 Long term (current) use of aspirin; Z79.01 Long term (current) use of anticoagulants; Z86.16 Personal history of COVID-19; Z79.899 Other long term (current) drug therapy; Z79.02 Long term (current) use of antithrombotics/antiplatelets; Z87.891 Personal history of nicotine dependence
CPT/HCPCS: 36415; 51702; 71045; 80048; 82803; 82962; 83605; 83880; 84484; 85025; 93005; 96360; 96361; 96374; 97162; 97802; 99218; 99285; 99406; J7030; J7040; A4216; G0378

== ENCOUNTER 2021-07-10 17:19 | Inpatient (IN) | payer MEDICARE, SELFPAY ==
[2021-07-10 17:28] VITALS: BP 102/56; PULSE 99; BMI 37.6
[2021-07-10 17:50] VITALS: BP 100/57; PULSE 72; RESP 16; TEMP 34.9; O2SAT 93
--- NOTE | 2021-07-10 19:51 | PCM.HP.STD ---
HPI - General General Date of Admission: 07/10/21 HPI Narrative ELISABET VAUGHAN, is a 66 Female with below past medical history with followin06/25/2021 Hospitalized for covid19, admitted to ICU. Discharged to [facility] for rehabilitation. 07/08/2021 Sent to [facility] with shortness of breath, tachycardia, change in mental status. Atrial fibrillation with rapid ventricular response, Metoprolol for rate control. Chest X-ray negative for congestive heart failure. IV fluids bolus for hypotension. Metoprolol 5mg for atrial fibrillation with rapid ventricular response. 07/08/2021 Admit to Hospital. Metoprolol, Eliquis for atrial fibrillation with rapid ventricular response. IV Fluids, hold Furosemide for acute kidney injury. 07/09/2021 Confusion improved. Metoprolol 50mg twice daily, Eliquis for atrial fibrillation. Acute kidney injury improved. Hold Metformin for lactic acidosis. 07/10/2021 Admit to TCU with debility, here for rehabilitation, strengthening, prior to discharge home with daughter. REPLACED BY [facility] Medical History Anxiety Atherosclerotic heart disease of [place] coronary artery without angina pectoris Chest pain Depression Essential hypertension Hx of non-ST elevation myocardial infarction (NSTEMI) Hyperlipidemia NSTEMI (non-ST elevated myocardial infarction) Old myocardial infarction Presence of stent in coronary artery (~12/28/18) S/P coronary artery stent placement (~12/28/18) Tachycardia Type 2 diabetes mellitus Unstable angina Urinary tract infection Home Medications Eliquis 5 mg PO BID 07/10/21 [History Last Taken Unknown] Lantus Solostar U-100 Insulin 15 units SUBCUT BID 07/10/21 [History Last Taken Unknown] acetaminophen [Tylenol] 650 mg PO Q6H PRN PRN 07/10/21 [History Last Taken Unknown] aspirin 81 mg PO DAILY 07/10/21 [History Last Taken Unknown] atorvastatin 10 mg PO QHS 07/10/21 [History Last Taken Unknown] clopidogrel 75 mg PO DAILY 07/10/21 [History Last Taken Unknown] fluoxetine 40 mg PO DAILY 07/10/21 [History Last Taken Unknown] furosemide 40 mg PO BIDLX 07/10/21 [History Last Taken Unknown] lisinopril 5 mg PO DAILY 07/10/21 [History Last Taken Unknown] metformin 500 mg PO BIDCM 07/10/21 [History Last Taken Unknown] metoprolol tartrate 50 mg PO BID 07/10/21 [History Last Taken Unknown] potassium chloride 40 meq PO BID 07/10/21 [History Last Taken Unknown] Allergy/AdvReac Type Severity Reaction Status Date / Time Sulfa (Sulfonamide Allergy Hives Verified 07/08/21 20:29 Antibiotics) Surgical History History of cholecystectomy Presence of coronary angioplasty implant and graft (~12/28/18) Social History (Updated 07/10/21 @ 19:[address] Rodney Mobley MD) household members: children housing: house Smoking Status: Former smoker alcohol intake: never substance use type: does not use caffeine: No ROS Constitutional Constitutional: Denies chills, fever(s) or weight gain ENT HEENT: Denies headache(s), nasal congestion or nasal discharge Cardiovascular Cardiovascular: Denies chest pain or palpitations Respiratory/Chest Respiratory/Chest: Denies cough, excessive phlegm production or shortness of breath with exertion Gastrointestinal Gastrointestinal: Denies abdominal pain, nausea or vomiting Genitourinary Genitourinary: Denies dysuria Musculoskeletal Musculoskeletal: Denies joint pain or joint swelling Integumentary Integumentary: Denies rash or wounds Neurologic Neurologic: Denies focal weakness, numbness or tingling Psychiatric Psychiatric: Denies anxiety, depression, homicidal ideation or suicidal ideation Vital Signs Vital Signs Vital Signs: 07/10/21 17:28 07/10/21 17:50 Temperature 94.9 F L Temperature Source Temporal Pulse Rate 72 Pulse Rhythm Irregular Pulse Strength Normal (2+) Respiratory Rate 16 Respiratory Effort Normal Non-Labored Respiratory Depth Normal Respiratory Pattern Normal Blood Pressure 100/57 L Blood Pressure Mean 71 Blood Pressure Source Monitor Blood Pressure Position Semi-Fowlers Blood Pressure Location Left Arm Pulse Ox 93 Oxygen Delivery Method Room Air Room Air Physical Exam Const alert and oriented x3 General Appearance: cooperative HEENT normocephalic Eyes PERRL and EOMs intact bilaterally Neck supple, no JVD and no carotid bruits Resp normal respiratory effort, normal air movement and clear to auscultation bilaterally Cardio Cardio Narrative: Irregularly irregular. GI normal to inspection, nondistended, normoactive bowel sounds, non-tender and non-distended Extremity normal capillary refill General Extremity: Negative for edema Skin no rashes or lesions noted General Skin Exam: no breakdown Psych affect normal Appearance: appropriate Assessment & Plan Assessment/Plan (1) Debility: (2) Metabolic encephalopathy: (3) PATRIC (acute kidney injury): (4) Hypoxia: (5) Paroxysmal atrial fibrillation with RVR: (6) COVID-19: (7) Hypotension: (8) Lactic acidosis: (9) Coronary artery disease: (10) Hyperlipidemia: (11) Depression: (12) Diabetes mellitus: (13) Hypertension: (14) Hypokalemia: (15) Chronic diastolic congestive heart failure: PLAN: 66 year old female with below past medical history significant for recent covid19 hospitalized for encephalopathy secondary to atrial fibrillation with rapid ventricular response, complicated by acute kidney injury, hypotension, lactic acidosis, admitted to TCU with debility, here for rehabilitation, strengthening, prior to discharge home with daughter. Debility - PT/OT. Pain - Tylenol 1000mg q6h prn pain (1-10). Bowel - Senna/colace 1 tablet twice daily, Dulcolax 10mg daily prn. Adult immunization - Administer prevnar 13, pneumovax 23, fluzone, covid19 vaccine as appropriate. DVT prophylaxis - Not necessary, already on Eliquis. Atrial fibrillation - Metoprolol 50mg bid, Eliquis 5mg bid. Hyperlipidemia - Atorvastatin 10mg qhs. Coronary artery disease status post stent > 1 year ago - Metoprolol 50mg bid, Lisinopril 5mg daily, Plavix 75mg daily, Eliquis 5mg bid, stop aspirin 81mg daily (increases risk of bleeding without further decreasing cardiovascular risk 4 weeks past stent) Depression - Fluoxetine 40mg daily, stable chronic intermediate card tender use, GDR not recommended. Chronic diastolic congestive heart failure - Metoprolol 50mg bid, Lisinopril 5mg daily, Lasix 40mg bid. Diabetes Mellitus II - Metformin 500mg bid, Lantus 15 units bid. Nutrition - Santos 1 packet bid. Hypokalemia - Potassium chloride 40meq bidcm.
[2021-07-10 21:30] LABS: Bedside Glucose 215 mg/dL (70-110)
[2021-07-10 21:37] VITALS: BP 102/56; PULSE 89; O2SAT 93
[2021-07-10] MEDS: APIXABAN 5 MG TABLET PO (21:39)
[2021-07-10 21:42] VITALS: PULSE 86
[2021-07-10] MEDS: Senna/Docusate Sodium 1 Tablet PO (21:42)
[2021-07-10] MEDS: Metoprolol Tartrate 50 MG Tablet PO (21:42)
[2021-07-10] MEDS: Atorvastatin Calcium 10 MG Tablet PO (21:42)
[2021-07-11 06:04] LABS: Absolute Lymphocyte Count 1.32 X10^3/uL (0.83-4.51); Absolute Neutrophil Count 8.1 X10^3/uL (2.0-7.7); Basophil# 0.03 X10^3/uL; Basophil% 0.3 % (0-1); Eosinophil# 0.09 X10^3/uL; Eosinophils% 0.9 % (0-5); Hematocrit 30.5 % (37-47); Lymphocyte # 1.32 X10^3/ul (0.83-4.51); Lymphocyte % 12.5 % (19-41); Mean Corp Hgb Conc 32.8 g/dL (32-36); Mean Corpuscular Hgb 29.1 pg (27.0-32.0); Mean Corpuscular Volume 88.7 fL (81-99); Mean Platelet Vol. 10.6 fl (6.2-12.0); Monocyte# 0.63 X10^3/uL; NRBC Flagged by Analyzer 0 % (0-5); Neutrophil # 8.09 X10^3/uL (2.7-7.7); Neutrophil % 76.9 % (47-70); Platelet Count 359 K/mm3 (150-450); RBC Distribution Width CV 12.5 % (11.6-14.6); RBC Distribution Width SD 39.9 fl (35.1-43.9); Red Blood Count 3.44 M/mm3 (4.2-5.4); White Blood Count 10.5 K/mm3 (4.4-11.0)
[2021-07-11] MEDS: Furosemide 40 MG Tablet PO ×2 (06:15→13:23)
[2021-07-11] MEDS: Lisinopril 5 MG Tablet PO (06:15)
[2021-07-11] MEDS: FLUoxetine 20 MG Capsule 40 MG PO (06:15)
[2021-07-11] MEDS: Clopidogrel Bisulfate 75 MG Tablet PO (06:15)
[2021-07-11 06:16] VITALS: BP 119/68; PULSE 97
[2021-07-11] MEDS: APIXABAN 5 MG TABLET PO ×2 (06:16→18:01)
[2021-07-11] MEDS: Senna/Docusate Sodium 1 Tablet PO ×2 (06:16→18:01)
[2021-07-11] MEDS: Metoprolol Tartrate 50 MG Tablet PO (06:16)
[2021-07-11 06:26] LABS: Bedside Glucose 223 mg/dL (70-110)
[2021-07-11 06:33] LABS: Anion Gap 5 (5-15); BUN 42 mg/dL (7-18); BUN/Creat Ratio 44.3 RATIO (10-20); Calcium,Total 9.3 mg/dL (8.5-10.1); Chloride 102 mmol/L (98-107); Creatinine, Serum 0.95 mg/dL (0.55-1.02); EST Glomerular Filtration Rate 63 mL/min (>60); Est Glom Filt Rate - Afr Amer 76 mL/min (>60); Glucose 245 mg/dL (74-106); Sodium Level 136 mmol/L (136-145)
[2021-07-11] MEDS: metFORMIN (XR) 500 MG Tablet PO ×2 (09:32→18:01)
[2021-07-11] MEDS: Potassium Chloride Oral Tablet 20 MEQ 40 MEQ PO ×2 (09:32→18:01)
[2021-07-11] MEDS: Juven (unflavored) Packet 1 PACKET PO ×2 (09:32→18:01)
[2021-07-11] MEDS: Glucerna Shake 120 ML LIQUID PO ×3 (09:36→17:42)
--- NOTE | 2021-07-11 10:35 | CASEMGMT ---
Social Work Met with patient for initial assessment. Discussed code status. Pt confirmed full code. MOLST form completed, communication to , placed in chart. Explained Medicare benefit. Confirmed pt does not have secondary insurance. Explained [facility] copay starting day 21 about $185/day. Pt stated her goal is to be DC'd by then, but could pay if needed, but doesn't want to. Agreed with goal for day 21 DC. Pt has a first floor set up, sleeps in hospital bed, couch or recliner. Her room is the living room in her dtr's house. She has a and three kids. Pt has been living with her for a couple years now, per pt. She was independent prior, helped around the house, and has 5 steps to enter. Goal is to return home at PLOF without O2. SW to continue to follow. KRAIG Mayen STALLION MANAGER
[2021-07-11 11:05] LABS: Bedside Glucose 241 mg/dL (70-110)
[2021-07-11] MEDS: Tuberculin,Purif.prot.deriv. 50 TU/ML Vial 0.1 ML ID (11:59)
--- NOTE | 2021-07-11 14:08 | MDS.RN ---
Scheduled care plan meeting for 07/17/21 with resident. Resident states wants to have meeting with herself only, not to notify daughter.
--- NOTE | 2021-07-11 14:35 | PCM.PN.RX ---
Progress Note - Pharmacy Subjective: TCU ADMISSION Objective: Allergies Sulfa (Sulfonamide Antibiotics) Allergy (Verified 07/08/21 20:29) Hives Current Medications Generic Name Dose Route Start Last Admin Trade Name Attila PRN Reason Stop Dose Admin Acetaminophen 1,000 mg 07/10/21 20:10 Acetaminophen 500 Mg Tablet PO Q6H PRN PRN Pain Score 1-10 Apixaban 5 mg 07/10/21 18:00 07/11/21 06:16 Apixaban 5 Mg Tablet PO 5 mg BID GENIA Administration Atorvastatin Calcium 10 mg 07/10/21 22:00 07/10/21 21:42 Atorvastatin Calcium 10 Mg Tablet PO 10 mg QHS GENIA Administration Bisacodyl 10 mg 07/10/21 20:09 Bisacodyl 5 Mg Tablet PO DAILY PRN Constipation Clopidogrel Bisulfate 75 mg 07/11/21 06:00 07/11/21 06:15 Clopidogrel Bisulfate 75 Mg Tablet PO 75 mg DAILY GENIA Administration Fluoxetine HCl 40 mg 07/11/21 06:00 07/11/21 06:15 Fluoxetine 20 Mg Capsule PO 40 mg DAILY GENIA Administration Furosemide 40 mg 07/11/21 06:00 07/11/21 13:23 Furosemide 40 Mg Tablet PO 40 mg BIDLX GENIA Administration Insulin Glargine 15 units 07/10/21 18:00 07/11/21 06:17 Insulin Glargine 100 Units/Ml Pen SC 15 units BID GENIA Administration L-Arginine/L-Glutamine/Calcium HMB 1 packet 07/11/21 08:00 07/11/21 09:32 Santos (Unflavored) Packet PO 1 packet BIDCM GENIA Administration Lisinopril 5 mg 07/11/21 06:00 07/11/21 06:15 Lisinopril 5 Mg Tablet PO 5 mg DAILY GENIA Administration Metformin HCl 500 mg 07/11/21 08:00 07/11/21 09:32 Metformin (Xr) 500 Mg Tablet PO 500 mg BIDCM GENIA Administration Metoprolol Tartrate 50 mg 07/10/21 18:00 07/11/21 06:16 Metoprolol Tartrate 50 Mg Tablet PO 50 mg BID GENIA Administration Nutritional Formula (Lactose Free) 120 ml 07/11/21 07:45 07/11/21 11:58 Glucerna Shake 120 Ml Liquid PO 120 ml TIDCM GENIA Administration Potassium Chloride 40 meq 07/11/21 08:00 07/11/21 09:32 Potassium Chloride Oral Tablet 20 Meq PO 40 meq BIDCM GENIA Administration Senna/Docusate Sodium 1 tablet 07/10/21 20:15 07/11/21 06:16 Senna/Docusate Sodium 1 Tablet PO 1 tablet BID GENIA Administration Sodium Chloride 10 - 40 ml 07/10/21 21:38 0.9% Saline Lock 10 Ml Syringe IV UD PRN SALINE FLUSH Tuberculin PPD 0.1 ml 07/18/21 10:00 Tuberculin,Purif.Prot.Deriv. 50 Tu/Ml Vial ID 07/18/21 10:01 X1 ONE Problem List (Last Reviewed 07/10/21 @ 19:[address] Rodney Mobley MD) Chronic diastolic congestive heart failure (Chronic) Hypokalemia (Acute) Hypertension (Chronic) Diabetes mellitus (Acute) Depression (Acute) Hyperlipidemia (Acute) Coronary artery disease (Acute) Lactic acidosis (Acute) Hypotension (Acute) COVID-19 (Acute) Debility (Acute) Metabolic encephalopathy (Acute) PATRIC (acute kidney injury) (Acute) Hypoxia (Acute) Paroxysmal atrial fibrillation with RVR (Chronic) Vital Signs Temp Pulse Resp BP Pulse Ox 94.9 F L 97 16 119/68 93 07/10/21 17:50 07/11/21 06:16 07/10/21 17:50 07/11/21 06:16 07/10/21 21:37 Oxygen Flow Rate (L/min) 1 Oxygen Delivery Method Nasal Cannula Weight: 99.4 kg Body Mass Index (BMI) 37.6 Sodium 136 mmol/L (136-145) 07/11/21 05:29 Potassium 4.0 mmol/L (3.5-5.1) 07/11/21 05:29 Chloride 102 mmol/L (98-107) 07/11/21 05:29 Carbon Dioxide 29.0 mmol/L (21.0-32.0) 07/11/21 05:29 Anion Gap 5 (5-15) 07/11/21 05:29 BUN 42 mg/dL (7-18) H 07/11/21 05:29 Creatinine 0.95 mg/dL (0.55-1.02) 07/11/21 05:29 Est GFR (MDRD) Af Amer 76 mL/min (>60) 07/11/21 05:29 Est GFR (MDRD) Non-Af 63 mL/min (>60) 07/11/21 05:29 BUN/Creatinine Ratio 44.3 RATIO (10-20) H 07/11/21 05:29 Glucose 245 mg/dL (74-106) H 07/11/21 05:29 Assessment/Plan: 1. Pain: Tylenol 1000mg PO Q6h PRN Pain 1-10. Please continue to monitor for increased/decreased S/S Pain, PRN medication usage. 2. Atrial Fibrillation: Eliquis 5mg PO BID, Lipitor 10mg PO QHS, Lopressor 50mg PO BID. Please continue to monitor BP, pulse, S/S bleeding/bruising, lipid panel annually or sooner if clinically indicated. 3. CAD: Plavix 75mg PO Daily, Lisinopril 5mg PO Daily, Lopressor 50mg PO BID, Eliquis 5mg PO BID. Please continue to monitor BP, pulse, electrolytes, renal function, S/S bleeding/bruising. 4. CHF: Lisinopril 5mg PO Daily, Lopressor 50mg PO BID, Lasix 40mg PO BID, KCl 40mEq PO BID. Please continue to monitor Bp, pulse, electrolytes, K level (Last = 4), fluid status, daily weights. 5. Diabetes Type II: Metformin 500mg PO BID, Lantus 15 units SC BID. Please continue to monitor BG, A1C, S/S hyper/hypoglycemia. Psychotropic Medications: *6. Depression: Fluoxetine 40mg PO Daily. Please consider a GDR by 01/2022 if clinically indicated, thank you. Unnecessary Medications: None Bowel Regimen: Senna/Docusate 1 tab PO BID, Dulcolax 10mg PO Daily PRN. Please continue to monitor for increased/decreased constipation and/or diarrhea. Date of Note:: 07/11/21
[2021-07-11 16:16] VITALS: BP 100/47; PULSE 90; RESP 19; TEMP 36.3; O2SAT 97
[2021-07-11 16:16] LABS: Bedside Glucose 216 mg/dL (70-110)
[2021-07-11 16:52] VITALS: O2SAT 94
[2021-07-11 18:09] VITALS: BP 97/47; PULSE 94
--- NOTE | 2021-07-11 18:14 | NURSING ---
pt had small nose bleed today. rn aware
[2021-07-11 20:04] VITALS: BP 98/53; PULSE 92
[2021-07-11] MEDS: Atorvastatin Calcium 10 MG Tablet PO (20:04)
[2021-07-11 21:25] LABS: Bedside Glucose 281 mg/dL (70-110)
[2021-07-12] VITALS (7 sets, daily range): BP systolic 79–118; BP diastolic 37–62; PULSE 79–97; RESP 18; TEMP 36.3; O2SAT 96–98
[2021-07-12] MEDS: FLUoxetine 20 MG Capsule 40 MG PO (05:51)
[2021-07-12] MEDS: 0.9% Saline Lock 10 ML Syringe IV ×2 (05:51→19:17)
[2021-07-12] MEDS: Lisinopril 5 MG Tablet PO (05:52)
[2021-07-12] MEDS: Furosemide 40 MG Tablet PO (05:52)
[2021-07-12] MEDS: Metoprolol Tartrate 50 MG Tablet PO (05:52)
[2021-07-12] MEDS: Senna/Docusate Sodium 1 Tablet PO ×2 (05:52→17:20)
[2021-07-12] MEDS: Clopidogrel Bisulfate 75 MG Tablet PO (05:52)
[2021-07-12] MEDS: APIXABAN 5 MG TABLET PO ×2 (05:52→17:20)
[2021-07-12 06:20] LABS: Bedside Glucose 191 mg/dL (70-110)
[2021-07-12] MEDS: metFORMIN (XR) 500 MG Tablet PO ×2 (08:20→17:10)
[2021-07-12] MEDS: Glucerna Shake 120 ML LIQUID PO ×3 (08:20→17:10)
[2021-07-12] MEDS: Potassium Chloride Oral Tablet 20 MEQ 40 MEQ PO ×2 (08:21→17:10)
[2021-07-12 10:56] LABS: Bedside Glucose 239 mg/dL (70-110)
[2021-07-12 16:06] LABS: Bedside Glucose 150 mg/dL (70-110)
--- NOTE | 2021-07-12 18:33 | NURSING ---
Pt BP 88/37 this evening during med pass, trending back down from earlier, Dr. Mobley paged awaiting return phonecall.
--- NOTE | 2021-07-12 18:56 | NURSING ---
Reports low BP by Sabrina Hamilton LPN. Reported to Dr Mobley and orders given by telephone. Normal saline 500 ml bolus, then set rate to 60 ml/hr overnight. Will check labs in AM.
[2021-07-12] MEDS: 0.9% Normal Saline 1,000 ML 60 ML IV (19:43)
[2021-07-12 22:11] LABS: Bedside Glucose 143 mg/dL (70-110)
[2021-07-12] MEDS: Atorvastatin Calcium 10 MG Tablet PO (22:38)
[2021-07-13] MEDS: FLUoxetine 20 MG Capsule 40 MG PO (05:40)
[2021-07-13 05:41] VITALS: BP 116/62; PULSE 96
[2021-07-13] MEDS: Lisinopril 5 MG Tablet PO (05:41)
[2021-07-13] MEDS: Clopidogrel Bisulfate 75 MG Tablet PO (05:41)
[2021-07-13] MEDS: APIXABAN 5 MG TABLET PO ×2 (05:41→17:11)
[2021-07-13] MEDS: Senna/Docusate Sodium 1 Tablet PO (05:41)
[2021-07-13] MEDS: Metoprolol Tartrate 50 MG Tablet PO (05:41)
[2021-07-13] MEDS: Furosemide 40 MG Tablet PO (05:41)
[2021-07-13 06:45] LABS: Bedside Glucose 129 mg/dL (70-110)
[2021-07-13] MEDS: Potassium Chloride Oral Tablet 20 MEQ 40 MEQ PO ×2 (08:19→17:11)
[2021-07-13] MEDS: metFORMIN (XR) 500 MG Tablet PO ×2 (08:19→17:11)
[2021-07-13] MEDS: Glucerna Shake 120 ML LIQUID PO ×3 (08:19→17:11)
[2021-07-13 08:46] LABS: Absolute Lymphocyte Count 2.19 X10^3/uL (0.83-4.51); Absolute Neutrophil Count 6.1 X10^3/uL (2.0-7.7); Basophil# 0.04 X10^3/uL; Basophil% 0.4 % (0-1); Eosinophil# 0.16 X10^3/uL; Eosinophils% 1.7 % (0-5); Hematocrit 28.3 % (37-47); Hemoglobin 9.1 g/dL (12.0-15.0); Lymphocyte # 2.19 X10^3/ul (0.83-4.51); Lymphocyte % 23.2 % (19-41); Mean Corp Hgb Conc 32.2 g/dL (32-36); Mean Corpuscular Hgb 29.6 pg (27.0-32.0); Mean Corpuscular Volume 92.2 fL (81-99); Mean Platelet Vol. 10.3 fl (6.2-12.0); Monocyte# 0.65 X10^3/uL; Monocyte% 6.9 % (0-10); NRBC Flagged by Analyzer 0 % (0-5); Neutrophil # 6.14 X10^3/uL (2.7-7.7); Platelet Count 403 K/mm3 (150-450); Red Blood Count 3.07 M/mm3 (4.2-5.4); White Blood Count 9.4 K/mm3 (4.4-11.0)
[2021-07-13 09:13] LABS: Anion Gap 5 (5-15); BUN 32 mg/dL (7-18); BUN/Creat Ratio 32.2 RATIO (10-20); Calcium,Total 9.3 mg/dL (8.5-10.1); Chloride 105 mmol/L (98-107); EST Glomerular Filtration Rate 59 mL/min (>60); Est Glom Filt Rate - Afr Amer 72 mL/min (>60); Estimated Creatinine Clearance 47.79 ml/min; Glucose 166 mg/dL (74-106); Potassium 4.9 mmol/L (3.5-5.1); Sodium Level 136 mmol/L (136-145)
[2021-07-13 09:15] VITALS: O2SAT 93
[2021-07-13 10:56] LABS: Bedside Glucose 203 mg/dL (70-110)
[2021-07-13] MEDS: 0.9% Normal Saline 1,000 ML 60 ML IV (11:45)
[2021-07-13 14:53] VITALS: BP 105/62; PULSE 90; RESP 18; TEMP 36.3; O2SAT 99
[2021-07-13 16:40] LABS: Bedside Glucose 139 mg/dL (70-110)
[2021-07-13 17:35] VITALS: BP 93/43
--- NOTE | 2021-07-13 17:48 | NURSING ---
B\p recheck , Pedro held this evening.
[2021-07-13] MEDS: Atorvastatin Calcium 10 MG Tablet PO (21:18)
[2021-07-13 21:26] LABS: Bedside Glucose 229 mg/dL (70-110)
[2021-07-14] MEDS: 0.9% Normal Saline 1,000 ML 60 ML IV ×2 (03:15→20:00)
[2021-07-14 05:48] VITALS: BP 115/65; PULSE 93; RESP 16; TEMP 35.9; O2SAT 96
[2021-07-14] MEDS: Senna/Docusate Sodium 1 Tablet PO ×2 (05:50→17:24)
[2021-07-14] MEDS: FLUoxetine 20 MG Capsule 40 MG PO (05:50)
[2021-07-14] MEDS: Clopidogrel Bisulfate 75 MG Tablet PO (05:50)
[2021-07-14 05:51] VITALS: BP 115/65; PULSE 93
[2021-07-14] MEDS: Metoprolol Tartrate 50 MG Tablet PO (05:51)
[2021-07-14] MEDS: Lisinopril 5 MG Tablet PO (05:51)
[2021-07-14] MEDS: APIXABAN 5 MG TABLET PO ×2 (05:51→17:20)
[2021-07-14] MEDS: Furosemide 40 MG Tablet PO (05:52)
[2021-07-14 06:30] LABS: Bedside Glucose 130 mg/dL (70-110)
[2021-07-14] MEDS: metFORMIN (XR) 500 MG Tablet PO ×2 (08:19→17:19)
[2021-07-14] MEDS: Potassium Chloride Oral Tablet 20 MEQ 40 MEQ PO ×2 (08:20→17:19)
[2021-07-14] MEDS: Glucerna Shake 120 ML LIQUID PO ×3 (08:21→17:28)
[2021-07-14 10:46] LABS: Bedside Glucose 248 mg/dL (70-110)
[2021-07-14 15:02] VITALS: BP 79/52; PULSE 96; RESP 16; TEMP 36; O2SAT 97
[2021-07-14 15:10] VITALS: O2SAT 94
[2021-07-14 16:45] LABS: Bedside Glucose 135 mg/dL (70-110)
[2021-07-14 17:23] VITALS: BP 79/52; PULSE 90
[2021-07-14 21:51] LABS: Bedside Glucose 209 mg/dL (70-110)
[2021-07-14] MEDS: Atorvastatin Calcium 10 MG Tablet PO (22:25)
[2021-07-15 05:27] VITALS: BP 97/54; PULSE 90; RESP 16; O2SAT 98
[2021-07-15 05:29] VITALS: BP 97/54; PULSE 90
[2021-07-15] MEDS: Senna/Docusate Sodium 1 Tablet PO (05:29)
[2021-07-15] MEDS: FLUoxetine 20 MG Capsule 40 MG PO (05:29)
[2021-07-15] MEDS: Clopidogrel Bisulfate 75 MG Tablet PO (05:29)
[2021-07-15] MEDS: APIXABAN 5 MG TABLET PO ×2 (05:29→16:53)
[2021-07-15 06:45] VITALS: O2SAT 96
[2021-07-15 06:55] LABS: Bedside Glucose 116 mg/dL (70-110)
[2021-07-15 08:20] LABS: Absolute Lymphocyte Count 1.91 X10^3/uL (0.83-4.51); Absolute Neutrophil Count 3.1 X10^3/uL (2.0-7.7); Basophil# 0.03 X10^3/uL; Basophil% 0.5 % (0-1); Eosinophil# 0.13 X10^3/uL; Eosinophils% 2.3 % (0-5); Hematocrit 26.8 % (37-47); Hemoglobin 8.8 g/dL (12.0-15.0); Lymphocyte # 1.91 X10^3/ul (0.83-4.51); Lymphocyte % 33.3 % (19-41); Mean Corp Hgb Conc 32.8 g/dL (32-36); Mean Corpuscular Volume 91.5 fL (81-99); Mean Platelet Vol. 9.9 fl (6.2-12.0); Monocyte# 0.47 X10^3/uL; Monocyte% 8.2 % (0-10); NRBC Flagged by Analyzer 0 % (0-5); Neutrophil # 3.11 X10^3/uL (2.7-7.7); Neutrophil % 54.3 % (47-70); Platelet Count 284 K/mm3 (150-450); RBC Distribution Width CV 13.6 % (11.6-14.6); RBC Distribution Width SD 42.9 fl (35.1-43.9); Red Blood Count 2.93 M/mm3 (4.2-5.4); White Blood Count 5.7 K/mm3 (4.4-11.0)
[2021-07-15] MEDS: metFORMIN (XR) 500 MG Tablet PO ×2 (08:49→16:52)
[2021-07-15] MEDS: Potassium Chloride Oral Tablet 20 MEQ 40 MEQ PO ×2 (08:49→16:53)
[2021-07-15] MEDS: Glucerna Shake 120 ML LIQUID PO ×3 (08:53→16:52)
[2021-07-15 10:45] LABS: Bedside Glucose 221 mg/dL (70-110)
[2021-07-15 16:00] VITALS: BP 126/60; PULSE 63; RESP 18; TEMP 36.1; O2SAT 96
[2021-07-15 16:52] VITALS: PULSE 68
[2021-07-15] MEDS: Metoprolol Tartrate 25 MG Tablet PO (16:52)
[2021-07-15 17:20] LABS: Bedside Glucose 190 mg/dL (70-110)
[2021-07-15] MEDS: Atorvastatin Calcium 10 MG Tablet PO (20:52)
[2021-07-15 20:56] VITALS: PULSE 88; RESP 16; O2SAT 93
[2021-07-16 01:15] LABS: Bedside Glucose 197 mg/dL (70-110)
[2021-07-16] MEDS: APIXABAN 5 MG TABLET PO ×2 (06:06→17:23)
[2021-07-16 06:07] VITALS: BP 105/58; PULSE 81
[2021-07-16] MEDS: Senna/Docusate Sodium 1 Tablet PO (06:07)
[2021-07-16] MEDS: Metoprolol Tartrate 25 MG Tablet PO ×2 (06:07→17:24)
[2021-07-16] MEDS: FLUoxetine 20 MG Capsule 40 MG PO (06:07)
[2021-07-16] MEDS: Clopidogrel Bisulfate 75 MG Tablet PO (06:07)
[2021-07-16 06:36] LABS: Bedside Glucose 180 mg/dL (70-110)
[2021-07-16] MEDS: metFORMIN (XR) 500 MG Tablet PO ×2 (08:25→17:23)
[2021-07-16] MEDS: Potassium Chloride Oral Tablet 20 MEQ 40 MEQ PO ×2 (08:25→17:23)
[2021-07-16] MEDS: Glucerna Shake 120 ML LIQUID PO ×3 (08:27→17:33)
[2021-07-16 11:10] VITALS: PULSE 98; RESP 18; O2SAT 98
[2021-07-16 11:21] LABS: Bedside Glucose 230 mg/dL (70-110)
--- NOTE | 2021-07-16 14:18 | NURSING ---
IN TO SEE PT AND TRIMMED TOENAILS.
--- NOTE | 2021-07-16 14:19 | CON.PCM_ITS ---
Assessment & Plan Assessment/Plan (1) Nail dystrophy: (2) Diabetes mellitus with diabetic polyneuropathy: PLAN: Foot exam performed. Reviewed proper diabetic foot care with patient. Debrided toenails 1,2,3,4,5 bilateral using a nail nipper, removing bulk. This was done without incident. She can follow up with us at [facility] for further foot care. HPI Consult Data Date of Consult: 07/16/21 HPI Narrative HPI Narrative: ELISABET VAUGHAN, is a 66 F who was seen for long, thickened, toenails 1,2,3,4,5 bilateral. She has hx of diabetes and some neuropathy. She relates this is chronic. She relates not to long ago she lost her left 1st toenail of unknown cause. She relates to hx of COVID and in TCU for rehab. She has no other pedal complaints. [facility], [facility] Medical History Anxiety Atherosclerotic heart disease of [place] coronary artery without angina pectoris Chest pain Depression Essential hypertension Hx of non-ST elevation myocardial infarction (NSTEMI) Hyperlipidemia NSTEMI (non-ST elevated myocardial infarction) Old myocardial infarction Presence of stent in coronary artery (~12/28/18) S/P coronary artery stent placement (~12/28/18) Tachycardia Type 2 diabetes mellitus Unstable angina Urinary tract infection Home Medications Eliquis 5 mg PO BID 07/10/21 [History Last Taken Unknown] Lantus Solostar U-100 Insulin 15 units SUBCUT BID 07/10/21 [History Last Taken Unknown] acetaminophen [Tylenol] 650 mg PO Q6H PRN PRN 07/10/21 [History Last Taken Unknown] aspirin 81 mg PO DAILY 07/10/21 [History Last Taken Unknown] atorvastatin 10 mg PO QHS 07/10/21 [History Last Taken Unknown] clopidogrel 75 mg PO DAILY 07/10/21 [History Last Taken Unknown] fluoxetine 40 mg PO DAILY 07/10/21 [History Last Taken Unknown] furosemide 40 mg PO BIDLX 07/10/21 [History Last Taken Unknown] lisinopril 5 mg PO DAILY 07/10/21 [History Last Taken Unknown] metformin 500 mg PO BIDCM 07/10/21 [History Last Taken Unknown] metoprolol tartrate 50 mg PO BID 07/10/21 [History Last Taken Unknown] potassium chloride 40 meq PO BID 07/10/21 [History Last Taken Unknown] Allergy/AdvReac Type Severity Reaction Status Date / Time Sulfa (Sulfonamide Allergy Hives Verified 07/08/21 20:29 Antibiotics) Surgical History History of cholecystectomy Presence of coronary angioplasty implant and graft (~12/28/18) Social History (Updated 07/10/21 @ 19:[address] Rodney Mobley MD) household members: children housing: house Smoking Status: Former smoker alcohol intake: never substance use type: does not use caffeine: No Physical Exam Const alert, oriented x3 and no apparent distress Extremity Extremity Narrative: Toenails 1,2,3,4,5 bilateral are elongated, thickened and dystrophy, incurvated, yellow with subungual debris. There are no open lesions, no cellulitis, no blistering, no ecchymosis bilateral foot or ankle. No suspicious skin lesions, negative davis's sign bilateral foot or ankle. CFT < 2 seconds to all toes with normal temperature bilateral, no POP or pain on ROM to the foot or ankle, no evidence of [place]cot neuroarthopathy bilateral foot/ankle. Lab / Micro Data Result Diagrams: 07/15/21 08:04 07/13/21 08:36 Labs: Laboratory Results - last 24 hr 07/15/21 17:11: POC Glucose 190 H 07/15/21 22:07: POC Glucose 197 H 07/16/21 06:13: POC Glucose 180 H 07/16/21 11:14: POC Glucose 230 H
[2021-07-16 14:31] VITALS: BP 122/58; PULSE 103; RESP 20; TEMP 36.2; O2SAT 96
[2021-07-16 15:27] VITALS: O2SAT 99
[2021-07-16 16:50] LABS: Bedside Glucose 197 mg/dL (70-110)
[2021-07-16 17:24] VITALS: BP 122/58; PULSE 103
[2021-07-16] MEDS: Atorvastatin Calcium 10 MG Tablet PO (20:12)
[2021-07-16 21:36] LABS: Bedside Glucose 235 mg/dL (70-110)
[2021-07-17 06:26] LABS: Bedside Glucose 122 mg/dL (70-110)
[2021-07-17] MEDS: Senna/Docusate Sodium 1 Tablet PO (06:36)
[2021-07-17] MEDS: FLUoxetine 20 MG Capsule 40 MG PO (06:37)
[2021-07-17] MEDS: Clopidogrel Bisulfate 75 MG Tablet PO (06:37)
[2021-07-17 06:38] VITALS: BP 129/58; PULSE 107
[2021-07-17] MEDS: Metoprolol Tartrate 25 MG Tablet PO ×2 (06:38→17:15)
[2021-07-17] MEDS: APIXABAN 5 MG TABLET PO ×2 (06:38→17:15)
[2021-07-17 07:28] VITALS: O2SAT 98
[2021-07-17] MEDS: Potassium Chloride Oral Tablet 20 MEQ 40 MEQ PO ×2 (08:34→17:15)
--- NOTE | 2021-07-17 09:31 | CASEMGMT ---
Social Work IDT met with patient and conference call with dtr for care plan meeting. Discussed patient's progress in therapy and nursing. Pt progressing well. Pt lives at home with dtr and her family. She reports her room is on the 1st floor in the living room with 5 steps. Pt is new on O2 at 2LPM. Explained Medicare benefit. Pt does not have secondary insurance and cannot pay out of pocket for copays. The goal is for pt to return home at OF by day 21, 07/30. Will continue to follow. KRAIG Mayen PACKAGE YARNS DRYING MACHINE OPERATOR
[2021-07-17] MEDS: metFORMIN (XR) 500 MG Tablet PO ×2 (09:36→17:16)
--- NOTE | 2021-07-17 10:04 | CASEMGMT ---
Social Work BIMS(15) and PHQ-9(3) completed this day. Pt's symptoms reported on PHQ-9 are related to medical condition and not an indication of depression as per pt. DAMARIS Strange
[2021-07-17 11:15] LABS: Bedside Glucose 215 mg/dL (70-110)
[2021-07-17] MEDS: Glucerna Shake 120 ML LIQUID PO ×2 (11:41→17:22)
[2021-07-17 15:57] VITALS: BP 106/65; PULSE 85; RESP 26; TEMP 36.2; O2SAT 96
[2021-07-17 17:15] VITALS: BP 106/65; PULSE 85
[2021-07-17 17:16] LABS: Bedside Glucose 244 mg/dL (70-110)
[2021-07-17 22:00] LABS: Bedside Glucose 219 mg/dL (70-110)
[2021-07-17] MEDS: Atorvastatin Calcium 10 MG Tablet PO (22:03)
[2021-07-18 05:43] VITALS: BP 120/61; PULSE 79
[2021-07-18] MEDS: Clopidogrel Bisulfate 75 MG Tablet PO (05:43)
[2021-07-18] MEDS: APIXABAN 5 MG TABLET PO ×2 (05:43→17:50)
[2021-07-18] MEDS: Metoprolol Tartrate 25 MG Tablet PO ×2 (05:43→17:50)
[2021-07-18] MEDS: FLUoxetine 20 MG Capsule 40 MG PO (05:43)
[2021-07-18 06:23] LABS: Absolute Lymphocyte Count 1.84 X10^3/uL (0.83-4.51); Absolute Neutrophil Count 2.4 X10^3/uL (2.0-7.7); Basophil# 0.03 X10^3/uL; Basophil% 0.6 % (0-1); Hematocrit 24.4 % (37-47); Lymphocyte # 1.84 X10^3/ul (0.83-4.51); Lymphocyte % 36.8 % (19-41); Mean Corp Hgb Conc 32.8 g/dL (32-36); Mean Corpuscular Hgb 30.2 pg (27.0-32.0); Mean Corpuscular Volume 92.1 fL (81-99); Mean Platelet Vol. 9.9 fl (6.2-12.0); Monocyte# 0.49 X10^3/uL; Monocyte% 9.8 % (0-10); NRBC Flagged by Analyzer 0 % (0-5); Neutrophil # 2.41 X10^3/uL (2.7-7.7); Neutrophil % 48.2 % (47-70); Platelet Count 205 K/mm3 (150-450); RBC Distribution Width CV 14.9 % (11.6-14.6); Red Blood Count 2.65 M/mm3 (4.2-5.4)
[2021-07-18 06:30] LABS: Bedside Glucose 189 mg/dL (70-110)
[2021-07-18 06:50] LABS: Anion Gap 6 (5-15); BUN 19 mg/dL (7-18); BUN/Creat Ratio 23.6 RATIO (10-20); Chloride 107 mmol/L (98-107); EST Glomerular Filtration Rate 76 mL/min (>60); Est Glom Filt Rate - Afr Amer 92 mL/min (>60); Estimated Creatinine Clearance 59.73 ml/min; Glucose 185 mg/dL (74-106); Potassium 4.7 mmol/L (3.5-5.1); Sodium Level 137 mmol/L (136-145)
[2021-07-18 07:08] VITALS: O2SAT 95
[2021-07-18] MEDS: Potassium Chloride Oral Tablet 20 MEQ 40 MEQ PO ×2 (08:11→17:49)
[2021-07-18] MEDS: metFORMIN (XR) 500 MG Tablet PO ×2 (08:11→17:49)
[2021-07-18] MEDS: Tuberculin,Purif.prot.deriv. 50 TU/ML Vial 0.1 ML ID (10:14)
[2021-07-18] MEDS: Iron Polysaccharide Complex 150 MG CAPSULE PO (10:15)
[2021-07-18] MEDS: Glucerna Shake 120 ML LIQUID PO ×2 (11:00→17:48)
[2021-07-18 11:10] LABS: Bedside Glucose 243 mg/dL (70-110)
--- NOTE | 2021-07-18 13:13 | MDS.RN ---
Information for the mds was obtained from review of the clinical record, interview of resident, staff, and direct observation of resident's care.
[2021-07-18 14:44] VITALS: BP 122/56; PULSE 82; RESP 16; TEMP 36.1; O2SAT 94
--- NOTE | 2021-07-18 15:09 | NURSING ---
Hgb 8.0 this morning, Dr. Mobley updated N.O. ferrex and repeat CBC 07/20
[2021-07-18 16:01] LABS: Bedside Glucose 153 mg/dL (70-110)
[2021-07-18 17:50] VITALS: PULSE 82
[2021-07-18] MEDS: Atorvastatin Calcium 10 MG Tablet PO (20:17)
[2021-07-18 21:30] LABS: Bedside Glucose 151 mg/dL (70-110)
[2021-07-19 06:17] VITALS: BP 117/60; PULSE 78
[2021-07-19] MEDS: FLUoxetine 20 MG Capsule 40 MG PO (06:18)
[2021-07-19 06:19] VITALS: BP 117/60; PULSE 78
[2021-07-19] MEDS: Clopidogrel Bisulfate 75 MG Tablet PO (06:19)
[2021-07-19] MEDS: Metoprolol Tartrate 25 MG Tablet PO ×2 (06:19→17:22)
[2021-07-19] MEDS: Senna/Docusate Sodium 1 Tablet PO (06:19)
[2021-07-19] MEDS: APIXABAN 5 MG TABLET PO ×2 (06:19→17:21)
[2021-07-19 06:26] LABS: Bedside Glucose 116 mg/dL (70-110)
[2021-07-19] MEDS: metFORMIN (XR) 500 MG Tablet PO ×2 (07:35→17:21)
[2021-07-19] MEDS: Potassium Chloride Oral Tablet 20 MEQ 40 MEQ PO ×2 (07:35→17:22)
[2021-07-19] MEDS: Glucerna Shake 120 ML LIQUID PO ×3 (07:36→17:21)
[2021-07-19] MEDS: Iron Polysaccharide Complex 150 MG CAPSULE PO (07:36)
[2021-07-19 08:04] VITALS: O2SAT 97
[2021-07-19] MEDS: Acetaminophen 500 MG Tablet 1000 MG PO (11:00)
[2021-07-19 11:30] LABS: Bedside Glucose 173 mg/dL (70-110)
[2021-07-19 13:52] VITALS: BP 114/58; PULSE 83; RESP 16; TEMP 36.4; O2SAT 93
[2021-07-19 16:16] LABS: Bedside Glucose 161 mg/dL (70-110)
[2021-07-19 17:22] VITALS: PULSE 83
[2021-07-19 20:26] VITALS: PULSE 77; RESP 18; O2SAT 97
[2021-07-19] MEDS: Atorvastatin Calcium 10 MG Tablet PO (20:47)
[2021-07-19 21:30] LABS: Bedside Glucose 211 mg/dL (70-110)
[2021-07-20 06:20] VITALS: BP 117/51; PULSE 75
[2021-07-20 06:20] LABS: Bedside Glucose 132 mg/dL (70-110)
[2021-07-20] MEDS: Senna/Docusate Sodium 1 Tablet PO (06:20)
[2021-07-20] MEDS: Metoprolol Tartrate 25 MG Tablet PO ×2 (06:20→17:22)
[2021-07-20] MEDS: Clopidogrel Bisulfate 75 MG Tablet PO (06:20)
[2021-07-20] MEDS: FLUoxetine 20 MG Capsule 40 MG PO (06:20)
[2021-07-20] MEDS: APIXABAN 5 MG TABLET PO ×2 (06:20→17:22)
[2021-07-20 07:48] LABS: Hematocrit 25.6 % (37-47); Hemoglobin 8.2 g/dL (12.0-15.0)
[2021-07-20] MEDS: Iron Polysaccharide Complex 150 MG CAPSULE PO (08:39)
[2021-07-20] MEDS: metFORMIN (XR) 500 MG Tablet PO ×2 (08:39→17:21)
[2021-07-20] MEDS: Potassium Chloride Oral Tablet 20 MEQ 40 MEQ PO ×2 (08:40→17:21)
[2021-07-20 10:50] VITALS: PULSE 77; RESP 18; O2SAT 96
[2021-07-20 10:56] LABS: Bedside Glucose 227 mg/dL (70-110)
[2021-07-20 13:30] VITALS: O2SAT 94
[2021-07-20 16:15] LABS: Bedside Glucose 164 mg/dL (70-110)
[2021-07-20 16:28] VITALS: BP 129/60; PULSE 84; RESP 18; TEMP 36.3; O2SAT 95
[2021-07-20 17:22] VITALS: BP 129/60; PULSE 84
[2021-07-20] MEDS: Glucerna Shake 120 ML LIQUID PO (17:25)
[2021-07-20] MEDS: Menthol/Lanolin/Calamine/Znox 113 GM Tube 1 APPLIC TOPICAL (19:51)
[2021-07-20] MEDS: Atorvastatin Calcium 10 MG Tablet PO (19:52)
[2021-07-20 21:46] LABS: Bedside Glucose 193 mg/dL (70-110)
[2021-07-21 06:25] LABS: Bedside Glucose 152 mg/dL (70-110)
[2021-07-21 06:31] VITALS: BP 134/62; PULSE 77
[2021-07-21] MEDS: Metoprolol Tartrate 25 MG Tablet PO ×2 (06:31→17:42)
[2021-07-21] MEDS: Clopidogrel Bisulfate 75 MG Tablet PO (06:31)
[2021-07-21] MEDS: Senna/Docusate Sodium 1 Tablet PO (06:31)
[2021-07-21] MEDS: APIXABAN 5 MG TABLET PO ×2 (06:31→17:42)
[2021-07-21] MEDS: FLUoxetine 20 MG Capsule 40 MG PO (06:31)
[2021-07-21] MEDS: Menthol/Lanolin/Calamine/Znox 113 GM Tube 1 APPLIC TOPICAL ×2 (06:33→23:32)
[2021-07-21] MEDS: Iron Polysaccharide Complex 150 MG CAPSULE PO (08:23)
[2021-07-21] MEDS: metFORMIN (XR) 500 MG Tablet PO ×2 (08:24→17:42)
[2021-07-21] MEDS: Potassium Chloride Oral Tablet 20 MEQ 40 MEQ PO ×2 (08:24→17:42)
[2021-07-21 11:10] LABS: Bedside Glucose 190 mg/dL (70-110)
[2021-07-21 15:53] VITALS: BP 110/52; PULSE 77; RESP 15; TEMP 36.6; O2SAT 93
[2021-07-21 17:06] LABS: Bedside Glucose 143 mg/dL (70-110)
[2021-07-21] MEDS: Glucerna Shake 120 ML LIQUID PO (17:41)
[2021-07-21 17:42] VITALS: BP 110/52; PULSE 77
[2021-07-21] MEDS: Atorvastatin Calcium 10 MG Tablet PO (23:32)
[2021-07-22 00:25] LABS: Bedside Glucose 160 mg/dL (70-110)
[2021-07-22 06:06] LABS: Hematocrit 25.3 % (37-47); Hemoglobin 8.2 g/dL (12.0-15.0)
[2021-07-22 06:26] LABS: Bedside Glucose 122 mg/dL (70-110)
[2021-07-22] MEDS: FLUoxetine 20 MG Capsule 40 MG PO (06:44)
[2021-07-22] MEDS: APIXABAN 5 MG TABLET PO ×2 (06:44→20:07)
[2021-07-22] MEDS: Senna/Docusate Sodium 1 Tablet PO (06:44)
[2021-07-22] MEDS: Clopidogrel Bisulfate 75 MG Tablet PO (06:44)
[2021-07-22 06:45] VITALS: BP 171/84; PULSE 76
[2021-07-22] MEDS: Menthol/Lanolin/Calamine/Znox 113 GM Tube 1 APPLIC TOPICAL ×2 (06:45→20:07)
[2021-07-22] MEDS: Metoprolol Tartrate 25 MG Tablet PO ×2 (06:45→17:43)
[2021-07-22] MEDS: metFORMIN (XR) 500 MG Tablet PO ×2 (09:02→17:41)
[2021-07-22] MEDS: Glucerna Shake 120 ML LIQUID PO ×3 (09:02→17:41)
[2021-07-22] MEDS: Iron Polysaccharide Complex 150 MG CAPSULE PO (09:02)
[2021-07-22] MEDS: Potassium Chloride Oral Tablet 20 MEQ 40 MEQ PO ×2 (09:03→17:41)
[2021-07-22 10:46] LABS: Bedside Glucose 279 mg/dL (70-110)
[2021-07-22 13:26] VITALS: BP 130/62; PULSE 79; RESP 16; TEMP 36.6; O2SAT 94
[2021-07-22 16:31] LABS: Bedside Glucose 161 mg/dL (70-110)
[2021-07-22 17:43] VITALS: PULSE 84
[2021-07-22] MEDS: Atorvastatin Calcium 10 MG Tablet PO (20:07)
[2021-07-22 21:25] LABS: Bedside Glucose 243 mg/dL (70-110)
[2021-07-23 06:14] VITALS: BP 124/61; PULSE 71
[2021-07-23] MEDS: Metoprolol Tartrate 25 MG Tablet PO ×2 (06:14→17:18)
[2021-07-23] MEDS: FLUoxetine 20 MG Capsule 40 MG PO (06:14)
[2021-07-23] MEDS: Clopidogrel Bisulfate 75 MG Tablet PO (06:14)
[2021-07-23] MEDS: Senna/Docusate Sodium 1 Tablet PO ×2 (06:14→17:19)
[2021-07-23] MEDS: Menthol/Lanolin/Calamine/Znox 113 GM Tube 1 APPLIC TOPICAL ×2 (06:15→20:20)
[2021-07-23 06:26] LABS: Bedside Glucose 141 mg/dL (70-110)
[2021-07-23] MEDS: APIXABAN 5 MG TABLET PO ×2 (06:54→17:18)
[2021-07-23 08:06] VITALS: O2SAT 96
[2021-07-23] MEDS: Potassium Chloride Oral Tablet 20 MEQ 40 MEQ PO ×2 (08:17→17:17)
[2021-07-23] MEDS: Iron Polysaccharide Complex 150 MG CAPSULE PO (08:18)
[2021-07-23] MEDS: metFORMIN (XR) 500 MG Tablet PO ×2 (08:18→17:17)
[2021-07-23 10:55] LABS: Bedside Glucose 272 mg/dL (70-110)
[2021-07-23] MEDS: Glucerna Shake 120 ML LIQUID PO ×2 (11:06→17:17)
[2021-07-23 15:52] VITALS: BP 136/70; PULSE 79; RESP 16; TEMP 36.3; O2SAT 97
[2021-07-23 17:18] VITALS: PULSE 79
[2021-07-23 17:30] LABS: Bedside Glucose 158 mg/dL (70-110)
[2021-07-23] MEDS: Atorvastatin Calcium 10 MG Tablet PO (20:20)
[2021-07-23 20:29] VITALS: PULSE 77; RESP 18; O2SAT 96
[2021-07-23 21:21] LABS: Bedside Glucose 259 mg/dL (70-110)
[2021-07-24 06:01] VITALS: BP 137/66; PULSE 77
[2021-07-24] MEDS: FLUoxetine 20 MG Capsule 40 MG PO (06:01)
[2021-07-24] MEDS: APIXABAN 5 MG TABLET PO ×2 (06:01→17:44)
[2021-07-24] MEDS: Clopidogrel Bisulfate 75 MG Tablet PO (06:01)
[2021-07-24] MEDS: Senna/Docusate Sodium 1 Tablet PO (06:01)
[2021-07-24] MEDS: Metoprolol Tartrate 25 MG Tablet PO ×2 (06:01→17:45)
[2021-07-24] MEDS: Menthol/Lanolin/Calamine/Znox 113 GM Tube 1 APPLIC TOPICAL ×2 (06:03→21:21)
[2021-07-24 06:04] VITALS: RESP 18; TEMP 36.4; O2SAT 93
[2021-07-24 06:04] LABS: Hematocrit 25.9 % (37-47); Hemoglobin 8.3 g/dL (12.0-15.0)
[2021-07-24 06:46] LABS: Bedside Glucose 146 mg/dL (70-110)
[2021-07-24] MEDS: metFORMIN (XR) 500 MG Tablet PO ×2 (08:19→17:44)
[2021-07-24] MEDS: Iron Polysaccharide Complex 150 MG CAPSULE PO (08:19)
[2021-07-24] MEDS: Potassium Chloride Oral Tablet 20 MEQ 40 MEQ PO ×2 (08:19→17:44)
[2021-07-24 10:50] LABS: Bedside Glucose 250 mg/dL (70-110)
--- NOTE | 2021-07-24 10:54 | CASEMGMT ---
Social Work Spoke with pt about DC plans. Pt requesting to DC home with dtr 07/27. IDT agreeable. Pt denies outpatient or HHC therapy. No DME needs. Dtr to transport. Plan: DC home with dtr and family 07/27, no needs Ashley Nicole, WHEEL ASSEMBLER R D MANAGER
[2021-07-24 11:00] VITALS: PULSE 76; RESP 18; O2SAT 98
[2021-07-24 14:31] VITALS: BP 137/66; PULSE 77; RESP 18; TEMP 36.4; O2SAT 93
[2021-07-24 17:05] LABS: Bedside Glucose 140 mg/dL (70-110)
[2021-07-24 17:45] VITALS: BP 137/66; PULSE 77
--- NOTE | 2021-07-24 19:38 | PCM.DC.SUM ---
Providers Date of Admission: 07/10/21 Primary Care Physician: Dr. Nena Calvillo MD Consultations 07/15/21 17:14 Consult: Podiatry Routine Consulting Provider: Barrington Barrientos Reason for Consult: General foot care. EMERGENT Consult: No MD Notified: Yes Date Notified: 07/15/21 Time Notified: 17:14 Method of Notification: Verbal Method of Consult:: In-Person Reason For Visit: AFIB RVR PATRIC Diagnosis Discharge Diagnosis (1) Nail dystrophy: Status: Acute Code(s): L60.3 - Nail dystrophy (2) Diabetes mellitus with diabetic polyneuropathy: Status: Acute Code(s): E11.42 - Type 2 diabetes mellitus with diabetic polyneuropathy Medications at Discharge Home Medications clopidogrel 75 mg PO DAILY 07/10/21 fluoxetine 40 mg PO DAILY 07/10/21 metformin 500 mg PO BIDCM 07/10/21 Eliquis 5 mg PO BID 30 Days #0 tab 07/24/21 Lantus Solostar U-100 Insulin 31 unit SUBCUT DAILY #0 ml 07/24/21 acetaminophen 1,000 mg PO Q6H PRN PRN #0 tab 07/24/21 atorvastatin 10 mg PO QHS 30 Days #30 tab 07/24/21 metoprolol tartrate 50 mg PO BID 30 Days #60 tab 07/24/21 polysaccharide iron complex [Ferrex 150] 150 mg PO DAILYCM 30 Days #30 cap 07/24/21 potassium chloride 40 meq PO BID 30 Days #120 tab 07/24/21 Hospital Course Operations None Procedures None Summary of Care Provided Minutes Spent on Discharge: 35 Hospital Course: 66 year old female with below past medical history significant for recent covid19 hospitalized for encephalopathy secondary to atrial fibrillation with rapid ventricular response, complicated by acute kidney injury, hypotension, lactic acidosis, admitted to TCU with debility, here for rehabilitation, strengthening, prior to discharge home with daughter. Discharge home with daughter, family 07/27/2021, No needs. Physical Exam Const alert and oriented x3 General Appearance: cooperative HEENT normocephalic Eyes PERRL and EOMs intact bilaterally Neck supple, no JVD and no carotid bruits Resp normal respiratory effort, normal air movement and clear to auscultation bilaterally Cardio regular rate and regular rhythm GI normal to inspection, nondistended, normoactive bowel sounds, non-tender and non-distended Extremity normal capillary refill General Extremity: Negative for edema Skin no rashes or lesions noted General Skin Exam: no breakdown Psych affect normal Appearance: appropriate Weight / BMI Weight Weight: 106.651 kg Body Mass Index (BMI) 37.6 ABG / Lab / Microbiology Data Result Diagrams: 07/24/21 05:20 07/18/21 05:50 Laboratory: Laboratory Results - last 24 hr 07/23/21 21:11: POC Glucose 259 H 07/24/21 05:20: Hgb 8.3 L, Hct 25.9 L 07/24/21 06:26: POC Glucose 146 H 07/24/21 10:42: POC Glucose 250 H 07/24/21 16:53: POC Glucose 140 H D/C Instructions Discharge Diet: No restrictions Discharge Activity: Return to Normal Activity, May Shower and Use Walker Weight Bearing Status: Weight bearing as tolerated Call your doctor if you observe: Fever of 101 or Higher, Inability to urinate, Inability to have a bowel movement, Shortness of breath, Dizziness, Fainting spells, Swelling in the ankles, Chest pain and Uncontrolled pain Additional Instructions: Discharge home with daughter, family 07/27/2021, No needs. Please Follow Up With: Nena Calvillo MD When: 1 week. Meaningful Use Info Meaningful Use Diagnoses (Choose all that apply): None applicable Discharge Plan Admission Admit Date/Time: 07/10/21 17:19 Primary Reason for Your Visit: Debility. Attending Provider: Rodney Mobley Chi Primary Care Provider: Nena Calvillo Consulting Providers: Barrington Barrientos Instructions Additional Instructions / Restrictions: Discharge home with daughter, family 07/27/2021, No needs. Discharge Orders/Prescriptions Prescriptions: New polysaccharide iron complex [Ferrex 150] 150 mg iron Capsule 150 mg PO DAILYCM 30 Days Qty: 30 RF: 0 acetaminophen 500 mg Tablet 1,000 mg PO Q6H PRN PRN (Reason: Pain Score 1-10) Qty: 0 RF: 0 Continued clopidogrel 75 mg tablet 75 mg PO DAILY RF: 0 fluoxetine 20 mg capsule 40 mg PO DAILY RF: 0 metformin 500 mg tablet extended release 24 hr 500 mg PO BIDCM RF: 0 atorvastatin 10 mg tablet 10 mg PO QHS 30 Days Qty: 30 RF: 0 potassium chloride 20 mEq tablet,ER particles/crystals 40 meq PO BID 30 Days Qty: 120 RF: 0 metoprolol tartrate 50 mg tablet 50 mg PO BID 30 Days Qty: 60 RF: 0 Eliquis 5 mg tablet 5 mg PO BID 30 Days Qty: 0 RF: 0 Changed Lantus Solostar U-100 Insulin 100 unit/mL (3 mL) insulin pen 31 unit subcut DAILY Qty: 0 RF: 0 Discontinued furosemide 40 mg tablet 40 mg PO BIDLX RF: 0 acetaminophen [Tylenol] 325 mg tablet 650 mg PO Q6H PRN PRN (Reason: Headache/Fever) RF: 0 aspirin 81 mg tablet,delayed release (DR/EC) 81 mg PO DAILY RF: 0 lisinopril 5 mg tablet 5 mg PO DAILY RF: 0 Referrals / Follow Up: Nena Calvillo MD [Primary Care Provider] - Disposition Disposition (needs filled in before D/C Order can be placed): Home, Self Care
[2021-07-24 21:15] LABS: Bedside Glucose 203 mg/dL (70-110)
[2021-07-24] MEDS: Atorvastatin Calcium 10 MG Tablet PO (21:18)
[2021-07-25 05:22] VITALS: BP 135/63; PULSE 83
[2021-07-25] MEDS: Clopidogrel Bisulfate 75 MG Tablet PO (05:22)
[2021-07-25] MEDS: APIXABAN 5 MG TABLET PO ×2 (05:22→17:17)
[2021-07-25] MEDS: Menthol/Lanolin/Calamine/Znox 113 GM Tube 1 APPLIC TOPICAL ×2 (05:22→21:22)
[2021-07-25] MEDS: Senna/Docusate Sodium 1 Tablet PO (05:22)
[2021-07-25] MEDS: Metoprolol Tartrate 25 MG Tablet PO ×2 (05:22→17:16)
[2021-07-25] MEDS: FLUoxetine 20 MG Capsule 40 MG PO (05:22)
[2021-07-25 06:10] LABS: Absolute Lymphocyte Count 1.23 X10^3/uL (0.83-4.51); Absolute Neutrophil Count 1.9 X10^3/uL (2.0-7.7); Basophil# 0.02 X10^3/uL; Basophil% 0.5 % (0-1); Eosinophil# 0.23 X10^3/uL; Eosinophils% 5.9 % (0-5); Hematocrit 25.5 % (37-47); Hemoglobin 8.2 g/dL (12.0-15.0); Lymphocyte # 1.23 X10^3/ul (0.83-4.51); Lymphocyte % 31.6 % (19-41); Mean Corp Hgb Conc 32.2 g/dL (32-36); Mean Corpuscular Volume 93.4 fL (81-99); Mean Platelet Vol. 9.7 fl (6.2-12.0); Monocyte# 0.49 X10^3/uL; Monocyte% 12.6 % (0-10); NRBC Flagged by Analyzer 0 % (0-5); Neutrophil # 1.91 X10^3/uL (2.7-7.7); Neutrophil % 49.1 % (47-70); Platelet Count 196 K/mm3 (150-450); RBC Distribution Width CV 16.8 % (11.6-14.6); Red Blood Count 2.73 M/mm3 (4.2-5.4); White Blood Count 3.9 K/mm3 (4.4-11.0)
[2021-07-25 06:26] LABS: Bedside Glucose 152 mg/dL (70-110)
[2021-07-25 06:40] LABS: Anion Gap 5 (5-15); BUN 16 mg/dL (7-18); BUN/Creat Ratio 23.2 RATIO (10-20); Calcium,Total 8.8 mg/dL (8.5-10.1); Chloride 107 mmol/L (98-107); Creatinine, Serum 0.69 mg/dL (0.55-1.02); EST Glomerular Filtration Rate 91 mL/min (>60); Est Glom Filt Rate - Afr Amer 110 mL/min (>60); Estimated Creatinine Clearance 47.79 ml/min; Glucose 165 mg/dL (74-106); Potassium 4.4 mmol/L (3.5-5.1); Sodium Level 135 mmol/L (136-145)
[2021-07-25] MEDS: metFORMIN (XR) 500 MG Tablet PO ×2 (09:00→17:18)
[2021-07-25] MEDS: Iron Polysaccharide Complex 150 MG CAPSULE PO (09:00)
[2021-07-25] MEDS: Potassium Chloride Oral Tablet 20 MEQ 40 MEQ PO ×2 (09:00→17:17)
[2021-07-25 10:55] LABS: Bedside Glucose 253 mg/dL (70-110)
[2021-07-25 14:45] VITALS: BP 105/59; PULSE 85; RESP 18; TEMP 36.3; O2SAT 99
[2021-07-25 16:31] LABS: Bedside Glucose 153 mg/dL (70-110)
[2021-07-25 17:16] VITALS: BP 105/59; PULSE 85
[2021-07-25 21:15] VITALS: PULSE 77; RESP 16; O2SAT 94
[2021-07-25 21:20] LABS: Bedside Glucose 178 mg/dL (70-110)
[2021-07-25] MEDS: Atorvastatin Calcium 10 MG Tablet PO (21:20)
[2021-07-26 06:07] LABS: Hematocrit 25.7 % (37-47); Hemoglobin 8.4 g/dL (12.0-15.0)
[2021-07-26 06:31] LABS: Bedside Glucose 132 mg/dL (70-110)
[2021-07-26] MEDS: Senna/Docusate Sodium 1 Tablet PO (06:51)
[2021-07-26] MEDS: FLUoxetine 20 MG Capsule 40 MG PO (06:51)
[2021-07-26] MEDS: Clopidogrel Bisulfate 75 MG Tablet PO (06:51)
[2021-07-26 06:52] VITALS: BP 137/66; PULSE 76
[2021-07-26] MEDS: APIXABAN 5 MG TABLET PO ×2 (06:52→17:29)
[2021-07-26] MEDS: Metoprolol Tartrate 25 MG Tablet PO ×2 (06:52→17:29)
[2021-07-26] MEDS: Menthol/Lanolin/Calamine/Znox 113 GM Tube 1 APPLIC TOPICAL ×2 (06:54→20:30)
[2021-07-26 06:56] VITALS: BP 137/66; PULSE 76; RESP 16; TEMP 36.8; O2SAT 93
[2021-07-26] MEDS: Iron Polysaccharide Complex 150 MG CAPSULE PO (07:54)
[2021-07-26] MEDS: Potassium Chloride Oral Tablet 20 MEQ 40 MEQ PO ×2 (07:54→17:28)
[2021-07-26] MEDS: metFORMIN (XR) 500 MG Tablet PO ×2 (07:54→17:28)
[2021-07-26 10:40] LABS: Bedside Glucose 243 mg/dL (70-110)
[2021-07-26 11:00] VITALS: PULSE 72; RESP 18; O2SAT 96
[2021-07-26 12:59] VITALS: BP 130/76; PULSE 76; RESP 18; TEMP 36.3; O2SAT 97
--- NOTE | 2021-07-26 13:43 | CASEMGMT ---
Social Work BIMS and PHQ-9 completed for MDS assessment. Ashley Nicole, TERRITORY SALES REPRESENTATIVE UNLOAD ASSOCIATE
[2021-07-26 16:15] LABS: Bedside Glucose 152 mg/dL (70-110)
--- NOTE | 2021-07-26 17:16 | NURSING ---
PNEUMONIA 13 GIVEN IN RIGHT DELT. PT TOLERATED WELL. NO REACTION AT THIS TIME.
[2021-07-26 17:29] VITALS: BP 130/76; PULSE 76
[2021-07-26] MEDS: Atorvastatin Calcium 10 MG Tablet PO (20:30)
[2021-07-26 21:45] LABS: Bedside Glucose 227 mg/dL (70-110)
[2021-07-27 05:52] VITALS: BP 132/54; PULSE 77; RESP 16; TEMP 36.7; O2SAT 95
[2021-07-27] MEDS: APIXABAN 5 MG TABLET PO (05:54)
[2021-07-27] MEDS: Clopidogrel Bisulfate 75 MG Tablet PO (05:54)
[2021-07-27] MEDS: FLUoxetine 20 MG Capsule 40 MG PO (05:54)
[2021-07-27 05:55] VITALS: BP 132/54; PULSE 77
[2021-07-27] MEDS: Metoprolol Tartrate 25 MG Tablet PO (05:55)
[2021-07-27] MEDS: Menthol/Lanolin/Calamine/Znox 113 GM Tube 1 APPLIC TOPICAL (05:56)
[2021-07-27 06:31] LABS: Bedside Glucose 134 mg/dL (70-110)
[2021-07-27] MEDS: Potassium Chloride Oral Tablet 20 MEQ 40 MEQ PO (08:37)
[2021-07-27] MEDS: metFORMIN (XR) 500 MG Tablet PO (08:37)
[2021-07-27] MEDS: Iron Polysaccharide Complex 150 MG CAPSULE PO (08:37)
[2021-07-27 09:23] VITALS: BP 131/62; PULSE 83; RESP 16; TEMP 36.7; O2SAT 94
== END 2021-07-27 11:04 | disposition home or self-care (01) | DRG 309 ==
PROVIDERS: Admitting Provider Family Medicine Geriatric Medicine; PCP Internal Medicine; Visit Provider Family Medicine Geriatric Medicine
DX: I48.91 Unspecified atrial fibrillation (principal); I50.32 Chronic diastolic (congestive) heart failure; I11.0 Hypertensive heart disease with heart failure; Z23 Encounter for immunization; E78.5 Hyperlipidemia, unspecified; I25.10 Atherosclerotic heart disease of native coronary artery without angina pectoris; F32.A Depression, unspecified; E87.6 Hypokalemia; I48.0 Paroxysmal atrial fibrillation; I25.2 Old myocardial infarction; L60.3 Nail dystrophy; E11.42 Type 2 diabetes mellitus with diabetic polyneuropathy; Z79.01 Long term (current) use of anticoagulants; Z79.899 Other long term (current) drug therapy; Z79.02 Long term (current) use of antithrombotics/antiplatelets; Z79.82 Long term (current) use of aspirin; Z79.4 Long term (current) use of insulin; Z86.16 Personal history of COVID-19; Z87.891 Personal history of nicotine dependence
CPT/HCPCS: 0011A; 36415; 80048; 82962; 85014; 85018; 85025; 91301; 97110; 97116; 97162; 97166; 97530; 97535; 99406; G0009; J7030; J7040; 90670; A4216

== ENCOUNTER 2021-08-22 11:58 | Emergency (ER) | payer MEDICARE, SELFPAY ==
[2021-08-22 12:00] VITALS: BP 164/82; PULSE 85; RESP 14; TEMP 36.3; O2SAT 99; BMI 39.3
--- NOTE | 2021-08-22 12:40 | EX.ED.DYSGE1 ---
HPI History of Present Illness Chief Complaint: Complaint Narrative Narrative: Patient presents with gross hematuria. She states her symptoms began early this morning in the middle of the night. She has had gross hematuria with urination 8 times today already. She denies any chest pain or lightheadedness. She is on blood thinners. She states she was hospitalized a few weeks ago and was diagnosed with atrial fibrillation. While she was started on Eliquis initially, she could not afford the prescription so was changed to warfarin. She denies any fevers or chills. No abdominal pain. She states she had minor back pain, but that has resolved. She presents because of the gross hematuria. [facility] Medical History Anxiety Atherosclerotic heart disease of [place] coronary artery without angina pectoris Chest pain Depression Essential hypertension Hx of non-ST elevation myocardial infarction (NSTEMI) Hyperlipidemia NSTEMI (non-ST elevated myocardial infarction) Old myocardial infarction Presence of stent in coronary artery (~12/28/18) S/P coronary artery stent placement (~12/28/18) Tachycardia Type 2 diabetes mellitus Unstable angina Urinary tract infection Home Medications clopidogrel 75 mg PO DAILY 07/10/21 [History Last Taken Unknown] metformin 1,000 mg PO BIDCM 07/10/21 [History Last Taken Unknown] Lantus Solostar U-100 Insulin 31 unit SUBCUT DAILY #0 ml 07/24/21 [Rx Last Taken Unknown] atorvastatin 10 mg PO QHS 30 Days #30 tab 07/24/21 [Rx Last Taken Unknown] metoprolol tartrate 50 mg PO BID 30 Days #60 tab 07/24/21 [Rx Last Taken Unknown] potassium chloride 40 meq PO BID 30 Days #120 tab 07/24/21 [Rx Last Taken Unknown] polysaccharide iron complex 150 mg iron capsule 150 mg PO DAILY 08/15/21 [History Last Taken Unknown] rosuvastatin 5 mg tablet 5 mg PO DAILY 08/15/21 [History Last Taken Unknown] warfarin 2.5 mg tablet 2.5 mg PO DAILY tab 08/15/21 [History Last Taken Unknown] cephalexin 500 mg PO Q12 #14 cap 08/22/21 [Rx Last Taken Unknown] Allergy/AdvReac Type Severity Reaction Status Date / Time Sulfa (Sulfonamide Allergy Hives Verified 08/22/21 12:01 Antibiotics) Surgical History History of cholecystectomy Presence of coronary angioplasty implant and graft (~12/28/18) Social History household members: children housing: house Smoking Status: Former smoker alcohol intake: never substance use type: does not use caffeine: No ROS ROS ED ROS Narrative Constitutional: No fever, no chills. HEENT: No sore throat. No neck pain. No loss of vision. No rhinorrhea. Cardiovascular: No chest pain. No palpitations. No pedal edema. Respiratory: No cough, no shortness of breath. Abdominal: No abdominal pain. No nausea. No vomiting. Genitourinary: No dysuria. Positive gross hematuria. Musculoskeletal: No myalgias. No arthralgias. Mild back pain. Neurologic: No headaches. No dizziness. No lightheadedness. Skin: No rash. No change in color. Psychiatric: No depression. No anxiety. EXAM Physical Exam Narrative Exam Narrative: Afebrile. Vital signs noted. HEENT: Normocephalic. Atraumatic. PERRL, EOMI. Neck soft and supple. No point tenderness or step off. Cardiovascular: Regular rate and rhythm. No murmurs, rubs, or gallops appreciated. Respiratory: No tachypnea. Lungs clear to auscultation bilaterally. Gastrointestinal: Abdomen soft, nontender, with normoactive bowel sounds. No rebound or guarding. Neurological: Awake. Alert. Nonfocal, nonlateralizing. Ambulatory in ED without difficulty. Skin: No rash. Normal color. No pallor. Musculoskeletal: No pedal edema. Full range of motion extremities. Const Vital Signs: 08/22/21 12:00 08/22/21 12:46 08/22/21 14:28 Temperature 97.4 F L 97.4 F L Temperature Source Temporal Temporal Pulse Rate 85 85 79 Respiratory Rate 14 14 16 Blood Pressure 164/82 H 164/82 H 182/84 H Blood Pressure Mean 109 109 116 Pulse Ox 99 99 97 Oxygen Delivery Method Room Air Room Air Room Air MDM MDM MDM Narrative Medical decision making narrative: Comprehensive work-up was pursued. Patient has a small sample of urine on the countertop which appears as if there is gross hematuria. She has normal white count of 5.5, hemoglobin stable at 10.4. Her INR is therapeutic at 2.8. She also takes Plavix and has so for years. Her electrolyte panel is grossly unremarkable with a normal creatinine of 0.97, but BUN is slightly elevated at 27. Her urinalysis shows greater than 100 RBCs with only 10-25 WBCs. Given her painless hematuria, I did obtain a CT of the abdomen pelvis which shows thickening of the bladder wall which I think is more from cystitis. She was treated with her first dose of Keflex here in the emergency department and prescription written for the next 7 days. She was told to hold her Coumadin as she only takes this for atrial fibrillation for the next few days but follow-up with the Coumadin clinic and tell them that she is going to be on antibiotics for the next week to see when she should restart her Coumadin and monitor her levels to make sure that it does not increase significantly. I feel she be discharged safely home with follow-up. Return instructions to the emergency department were reviewed. Disposition is discharged home in stable condition. Lab Data Labs: Laboratory Results - last 24 hr 08/22/21 08/22/21 08/22/21 12:40 12:40 12:40 WBC 5.5 RBC 3.45 L Hgb 10.4 L Hct 31.1 L MCV 90.1 MCH 30.1 MCHC 33.4 RDW Std Deviation 48.0 H RDW Coeff of Maritza 14.6 Plt Count 270 MPV 9.9 Immature Gran % (Auto) 0.400 Neut % (Auto) 53.0 Lymph % (Auto) 33.3 Knott % (Auto) 7.7 Eos % (Auto) 4.9 Baso % (Auto) 0.7 Absolute Neuts (auto) 2.9 Absolute Lymphs (auto) 1.82 Nucleated RBC % 0 PT 28.6 H INR 2.8 Sodium 138 Potassium 4.1 Chloride 103 Carbon Dioxide 28.0 Anion Gap 7 BUN 27 H Creatinine 0.97 Estim Creat Clear Calc 49.26 Est GFR (MDRD) Af Amer 74 Est GFR (MDRD) Non-Af 61 BUN/Creatinine Ratio 28.0 H Glucose 250 H Calcium 9.4 Urine Color Urine Clarity Urine pH Ur Specific [employer] Urine Protein Urine Glucose (UA) Urine Ketones Urine Occult Blood Urine Nitrite Urine Bilirubin Urine Urobilinogen Ur Leukocyte Esterase Urine RBC Urine WBC Ur Squamous Epith Cells Urine Bacteria Urine Mucus 08/22/21 12:41 WBC RBC Hgb Hct MCV MCH MCHC RDW Std Deviation RDW Coeff of Maritza Plt Count MPV Immature Gran % (Auto) Neut % (Auto) Lymph % (Auto) Knott % (Auto) Eos % (Auto) Baso % (Auto) Absolute Neuts (auto) Absolute Lymphs (auto) Nucleated RBC % PT INR Sodium Potassium Chloride Carbon Dioxide Anion Gap BUN Creatinine Estim Creat Clear Calc Est GFR (MDRD) Af Amer Est GFR (MDRD) Non-Af BUN/Creatinine Ratio Glucose Calcium Urine Color Red Urine Clarity Turbid Urine pH 6.5 Ur Specific [employer] 1.015 Urine Protein 500 H Urine Glucose (UA) 100 H Urine Ketones 15 H Urine Occult Blood 250 H Urine Nitrite Negative Urine Bilirubin Negative Urine Urobilinogen Normal Ur Leukocyte Esterase 25 H Urine RBC > 100 SEEN Urine WBC 10-25 SEEN Ur Squamous Epith Cells 0-5 SEEN Urine Bacteria 0 SEEN Urine Mucus 0 SEEN Radiography Diagnostic Testing: Clinical Impression(s) from Imaging Studies Abdomen/Pelvis CT 08/22/21 12:43 IMPRESSION: Mildly thickened bladder wall. Moderate sized umbilical hernia containing nondistended loop of transverse colon. The patient is status post cholecystectomy. Electronically Signed: Gabo Mercer MD at 13:31 EST , Service support , Discharge Plan Triage Chief Complaint: Complaint ED Provider: Drew Sofia Dx/Rx/DC Orders Clinical Impression: Cystitis, Gross hematuria Instructions: ED Hematuria, ED CYSTITIS Female Adult Prescriptions: New cephalexin 500 mg capsule 500 mg PO Q12 Qty: 14 RF: 0 No Action warfarin 2.5 mg tablet 2.5 mg PO DAILY RF: 0 polysaccharide iron complex [iFerex 150] 150 mg iron capsule 150 mg PO DAILY RF: 0 rosuvastatin 5 mg tablet 5 mg PO DAILY RF: 0 clopidogrel 75 mg tablet 75 mg PO DAILY RF: 0 metformin 500 mg tablet extended release 24 hr 1,000 mg PO BIDCM RF: 0 atorvastatin 10 mg tablet 10 mg PO QHS 30 Days Qty: 30 RF: 0 potassium chloride 20 mEq tablet,ER particles/crystals 40 meq PO BID 30 Days Qty: 120 RF: 0 metoprolol tartrate 50 mg tablet 50 mg PO BID 30 Days Qty: 60 RF: 0 Lantus Solostar U-100 Insulin 100 unit/mL (3 mL) insulin pen 31 unit subcut DAILY Qty: 0 RF: 0 Primary Care Provider: Nena Calvillo Referrals: Nena Calvillo MD [Primary Care Provider] - 08/26/21 Disposition Disposition: Home, Self Care
--- NOTE | 2021-08-22 12:43 | CT_ITS ---
STUDY: CT ABDOMEN AND PELVIS WITHOUT CONTRAST REASON FOR EXAM: Female, 66 years old. Hematuria. Recently started on COUMADIN. RADIATION DOSAGE (If Supplied By Facility): CTDIvol = ( 22.40 ) mGy, DLP = ( 1064.06 ) mGycm TECHNIQUE: Transaxial images were obtained from the dome of the diaphragm to the symphysis pubis without oral contrast, and without intravenous contrast. Sagittal and coronal images were reconstructed. Individualized dose optimization techniques were used for this CT. COMPARISON: Comparison is made with prior study 06/29/2021. FINDINGS: Persistent increased linear markings with areas of cartilage at both lung bases although there has been improved aeration as compared to prior study. This most likely represents scarring. Coronary artery calcification. Normal liver. The patient is status post cholecystectomy. Normal spleen. Normal pancreas. Normal bilateral adrenal glands. Normal right kidney. Normal left kidney. Normal visualized stomach. Normal small intestine. Normal colon. The appendix is visualized and appears normal. There is scattered atherosclerotic calcification of the abdominal aorta, without a demonstrated aneurysm. Normal inferior vena cava. Normal retroperitoneum. Mildly thickened diffuse bladder wall. Fibroid uterus. There is a moderate-sized umbilical hernia containing a portion of nondilated transverse colon. The hernial sac measures 9.8 cm x 6.3 cm. There are diffuse degenerative changes of the visualized lumbar spine. Stable mild L4 on L5. CT/Abdomen/Pelvis without Cont IMPRESSION: Mildly thickened bladder wall. Moderate sized umbilical hernia containing nondistended loop of transverse colon. The patient is status post cholecystectomy. Electronically Signed: Gabo Mercer MD at 13:31 EST , Service support ,
[2021-08-22 12:46] VITALS: BP 164/82; PULSE 85; RESP 14; TEMP 36.3; O2SAT 99
[2021-08-22 13:00] LABS: Bacteria 0 SEEN /hpf (None Seen); Mucous, Urine 0 SEEN /hpf (<or=2+)
[2021-08-22 13:02] LABS: Absolute Lymphocyte Count 1.82 X10^3/uL (0.83-4.51); Absolute Neutrophil Count 2.9 X10^3/uL (2.0-7.7); Basophil# 0.04 X10^3/uL; Basophil% 0.7 % (0-1); Eosinophil# 0.27 X10^3/uL; Eosinophils% 4.9 % (0-5); Hematocrit 31.1 % (37-47); Hemoglobin 10.4 g/dL (12.0-15.0); Lymphocyte # 1.82 X10^3/ul (0.83-4.51); Lymphocyte % 33.3 % (19-41); Mean Corp Hgb Conc 33.4 g/dL (32-36); Mean Corpuscular Hgb 30.1 pg (27.0-32.0); Mean Corpuscular Volume 90.1 fL (81-99); Mean Platelet Vol. 9.9 fl (6.2-12.0); Monocyte# 0.42 X10^3/uL; Monocyte% 7.7 % (0-10); NRBC Flagged by Analyzer 0 % (0-5); Neutrophil # 2.89 X10^3/uL (2.7-7.7); Platelet Count 270 K/mm3 (150-450); RBC Distribution Width CV 14.6 % (11.6-14.6); Red Blood Count 3.45 M/mm3 (4.2-5.4); White Blood Count 5.5 K/mm3 (4.4-11.0)
[2021-08-22 13:03] LABS: Color, Urine Red (Yellow); Glucose, Dipstick 100 mg/dl (Normal); Ketone-Dipstick 15 mg/dl (Negative); Leukocyte Esterase-Dipstick 25 /ul (Negative); Nitrite-Dipstick Negative (Negative); Occult Blood-Urine 250 /ul (Negative); Protein-Dipstick 500 mg/dl (Negative); Specific Gravity, Urine 1.015 (1.002-1.030); Urine Bilirubin Dipstick Negative (Negative); Urine Clarity Turbid (Clear); Urine Urobilinogen Normal (Normal); Urine pH 6.5 (5.0 - 8.0)
[2021-08-22 13:09] LABS: Red Blood Cells-Urine > 100 SEEN /hpf (0-5); Squamous Epithelial Cells - UA 0-5 SEEN /hpf (5-10); White Blood Cells 10-25 SEEN /hpf (0-5)
[2021-08-22 13:11] LABS: International Normalized Ratio 2.8; Prothrombin Time (Protime)PT. 28.6 SECONDS (11.7-14.9)
[2021-08-22 13:15] LABS: Anion Gap 7 (5-15); BUN 27 mg/dL (7-18); Calcium,Total 9.4 mg/dL (8.5-10.1); Chloride 103 mmol/L (98-107); Creatinine, Serum 0.97 mg/dL (0.55-1.02); EST Glomerular Filtration Rate 61 mL/min (>60); Est Glom Filt Rate - Afr Amer 74 mL/min (>60); Estimated Creatinine Clearance 49.26 ml/min; Glucose 250 mg/dL (74-106); Potassium 4.1 mmol/L (3.5-5.1); Sodium Level 138 mmol/L (136-145)
[2021-08-22 14:28] VITALS: BP 182/84; PULSE 79; RESP 16; O2SAT 97
[2021-08-22] MEDS: Cephalexin 250 MG Capsule 500 MG PO (15:13)
[2021-08-22 15:20] VITALS: BP 182/84; PULSE 79; RESP 16; TEMP 36.8; O2SAT 97
--- NOTE | 2021-08-22 15:22 | ED.RN ---
REVIEWED D/C INSTRUCTIONS, FOLLOW UP CARE, PRESCRIPTION, AND S/S THAT WOULD WARRANT A RETURN TO THE ED WITH PT. PT VERBALIZED AN UNDERSTANDING AND DENIES FURTHER QUESTIONS FOR THIS RN. PT SKIN P/W/D, RESP EVEN AND UNLABORED, PT A&O X 3, NO DISTRESS NOTED. PT AMBULATED OUT OF ED, GAIT STEADY.
== END 2021-08-22 15:22 | disposition home or self-care (01) ==
PROVIDERS: Emergency Provider Emergency Medicine; PCP Internal Medicine
DX: N30.91 Cystitis, unspecified with hematuria (principal); E11.9 Type 2 diabetes mellitus without complications; E78.5 Hyperlipidemia, unspecified; F32.A Depression, unspecified; F41.9 Anxiety disorder, unspecified; I10 Essential (primary) hypertension; I25.10 Atherosclerotic heart disease of native coronary artery without angina pectoris; I25.2 Old myocardial infarction; I48.91 Unspecified atrial fibrillation; Z79.01 Long term (current) use of anticoagulants; Z79.4 Long term (current) use of insulin; Z90.49 Acquired absence of other specified parts of digestive tract; Z95.5 Presence of coronary angioplasty implant and graft; Z87.891 Personal history of nicotine dependence; K42.9 Umbilical hernia without obstruction or gangrene
CPT/HCPCS: 74176; 80048; 81001; 85025; 85610; 99285; A4216

== ENCOUNTER 2021-12-13 09:00 | Outpatient (CLI) | payer MEDICARE, SELFPAY ==
[2021-12-13 09:28] LABS: International Normalized Ratio 2.2
== END 2021-12-13 23:59 | disposition home or self-care (01) ==
LOC: LABSPEC 09:11
PROVIDERS: PCP Internal Medicine; Visit Provider Internal Medicine
DX: Z79.01 Long term (current) use of anticoagulants (principal)
CPT/HCPCS: 85610

== ENCOUNTER 2022-08-27 21:13 | Emergency (ER) | payer MEDICARE, SELFPAY ==
[2022-08-27 21:13] VITALS: BP 219/104; PULSE 83; RESP 16; TEMP 36.2; O2SAT 99; BMI 39.4
--- NOTE | 2022-08-27 21:24 | CT_ITS ---
STUDY: CT FACIAL BONES WITHOUT CONTRAST REASON FOR EXAM: Female, 67 years old. Fall. Laceration, trauma RADIATION DOSAGE (If Supplied By Facility): CTDIvol = ( 29.38 ) mGy, DLP = ( 584.19 ) mGycm TECHNIQUE: The patient was scanned in a multi detector CT scanner. Sagittal and coronal images were reconstructed. Individualized dose optimization techniques were used for this CT. COMPARISON: None. FINDINGS: There is right periorbital soft tissue swelling. Normal orbital gastelum and orbital contents. Normal nasal bones and anterior nasal spine. Normal zygomatic arches. Normal mandible. Normal facial bones. There is no demonstrated fracture. There are missing teeth and cavities in the teeth. Normal visualized paranasal sinuses. CT/Sinus/Facial Bone IMPRESSION: Right periorbital soft tissue swelling. No fracture. Electronically Signed: Wolf Gant MD at 22:59 EST ,
--- NOTE | 2022-08-27 21:24 | CT_ITS ---
STUDY: CT BRAIN WITHOUT CONTRAST REASON FOR EXAM: Female, 67 years old. Trauma RADIATION DOSAGE (If Supplied By Facility): CTDIvol = ( 44.99 ) mGy, DLP = ( 779.24 ) mGycm TECHNIQUE: Transaxial CT imaging of the brain was performed without administration of intravenous contrast material. Individualized dose optimization techniques were used for this CT. COMPARISON: No relevant priors. FINDINGS: There is right periorbital soft tissue swelling. Normal calvarium. Normal size ventricles and extra-axial spaces for the patient''s age. Normal white matter tracts of the cerebral hemispheres. Normal basal ganglia and thalami. Normal brainstem. Normal cerebellum. There is no intracranial hemorrhage. There are no findings of an acute ischemic infarction. Normal visualized paranasal sinuses. CT/Brain/Head without Contrast IMPRESSION: Normal unenhanced CT scan of the brain. Soft tissue swelling. Electronically Signed: Wolf Gant MD at 22:49 EST ,
--- NOTE | 2022-08-27 21:29 | EDS_ITS ---
HPI HPI - Fall History of Present Illness Chief Complaint: Fall Informant: patient Occured/Mechanism Occurred: Today Mechanism/Context: Yes same level fall and Yes trip Narrative: over walker wheel as it was rolling away from her and she tried to recover it Usually ambulates: Walker Pain/Injury Pain Location: head and face Quality of Pain: Aching Current Severity: Moderate Maximum Severity: Moderate Worsened by: palpation Relieved by: ice pack Associated Symptoms Associated Symptoms: Negative for Parasthesias, Weakness, Inability to ambulate, Loss of consciousness or Amnesia Narrative Narrative: Patient excellently tripped over her walker and fell to the floor hitting her right face. She denies any vision trouble or diplopia. She is on warfarin because of history of A. fib, her last INR was a couple days ago and it was low so the increase her dose. She injured her left wrist, but denies any other injury. No loss of consciousness. No nausea or vomiting. She does have a headache. [facility] Medical History Acidosis, lactic Acute alteration in mental status Acute hypotension Acute renal insufficiency Anxiety Atherosclerotic heart disease of [place] coronary artery without angina pectoris Atrial fibrillation with rapid ventricular response Chest pain Chronic respiratory failure with hypoxia Coronary artery disease Depression Diabetes mellitus Essential hypertension Hx of non-ST elevation myocardial infarction (NSTEMI) Hyperlipidemia Hyperlipidemia Hypertension Hypokalemia Nail dystrophy NSTEMI (non-ST elevated myocardial infarction) Old myocardial infarction Paroxysmal atrial fibrillation Paroxysmal atrial fibrillation with RVR Pneumonia due to COVID-19 virus Presence of stent in coronary artery (~12/28/18) S/P coronary artery stent placement (~12/28/18) Tachycardia Type 2 diabetes mellitus Unstable angina Urinary tract infection Home Medications clopidogrel 75 mg tablet 75 mg PO DAILY Antiplatelet 07/10/21 [History Last Taken Unknown] metformin 500 mg tablet,extended release 24 hr 1,000 mg PO BIDCM Diabetes 07/10/21 [History Last Taken Unknown] atorvastatin 10 mg tablet 10 mg PO QHS Cholesterol 30 days #30 tabs 07/24/21 [Rx Last Taken Unknown] metoprolol tartrate 50 mg tablet 50 mg PO BID BP 30 days #60 tabs 07/24/21 [Rx Last Taken Unknown] potassium chloride 20 mEq tablet,extended release(part/cryst) 40 meq PO BID Supplement 30 days #120 tabs 07/24/21 [Rx Last Taken Unknown] polysaccharide iron complex 150 mg iron capsule (iFerex 150) 150 mg PO DAILY 08/15/21 [History Last Taken Unknown] rosuvastatin 5 mg tablet 5 mg PO DAILY 08/15/21 [History Last Taken Unknown] warfarin 2.5 mg tablet 2.5 mg PO DAILY 08/15/21 [History Last Taken Unknown] insulin glargine 100 unit/mL (3 mL) subcutaneous pen (Lantus Solostar U-100 Insulin) 33 unit subcut DAILY Diabetes 04/18/22 [History Last Taken Unknown] biotin 10,000 mcg capsule 10,000 mcg PO DAILY 08/21/22 [History Last Taken Unknown] Allergy/AdvReac Type Severity Reaction Status Date / Time Sulfa (Sulfonamide Allergy Hives Verified 08/27/22 21:13 Antibiotics) Surgical History History of cholecystectomy Presence of coronary angioplasty implant and graft (~12/28/18) Social History household members: children housing: house Smoking Status: Former smoker alcohol intake: never substance use type: does not use caffeine: No ROS ROS ED Constitutional Constitutional ED: Denies chills or fever(s) Eyes Eyes: Denies blurry vision, change in vision or diplopia ENT ENT ED: Reports facial pain; Denies ear pain, epistaxis or rhinorrhea Cardiovascular Cardiovascular: Denies chest pain or palpitations Respiratory/Chest Respiratory/Chest: Denies cough or dyspnea Gastrointestinal Gastrointestinal: Denies abdominal pain, diarrhea, melena, nausea or vomiting Genitourinary Genitourinary ED: Denies dysuria or hematuria Musculoskeletal Musculoskeletal: Denies back pain, extremity pain or neck pain Integumentary Reports laceration; Denies abscess, Abrasions or rash Neurologic Neurologic: Reports headache(s); Denies confusion, paresthesias or weakness EXAM Physical Exam Const Vital Signs: 08/27/22 21:13 08/27/22 21:32 Temperature 97.2 F L Temperature Source Temporal Pulse Rate 83 Respiratory Rate 16 Respiratory Effort Normal Blood Pressure 219/104 H Blood Pressure Mean 142 Pulse Ox 99 Oxygen Delivery Method Room Air Room Air Positive well nourished and well developed General Appearance ED: well developed and NAD HEENT Reports TM's clear and nasal mucous membranes and turbinates normal HEENT Narrative: No monson sign or periorbital ecchymosis. Small contusion/hematoma right eyebrow with a small superficial partial-thickness 1 cm clean appearing laceration overlying it. No active bleeding. Patient holding ice on it. Tender in the right maxilla without any crepitance or deformity. No zygomatic arch or nasal bone tenderness. Tympanic Membrane ED: Yes TM's clear Eyes PERRL and EOMs intact bilaterally Visual Acuity: other Other Details: no entrapment or pain with extraocular movements Neck full ROM and supple General: Negative for tenderness Chest Wall inspection of chest normal and palpation of chest normal Chest: symmetrical chest wall rise; Negative for crepitus or tenderness Resp normal respiratory effort Effort and Inspection: able to speak in complete sentences Back/Spine normal ROM Cervical Spine: Negative for cervical spine tenderness Thoracic Spine / Upper Back: Negative for thoracic spinal tenderness Lumbar Spine / Lower Back: Negative for lumbar spinal tenderness Extremity full ROM Extremity Narrative: 1+ chronic lower extremity edema bilaterally symmetric no tenderness. Tender in the left distal radius but more so in the navicular with increased pain with axial loading of the right thumb. Full range of motion of the wrist and thumb. No other extremity tenderness. Neuro oriented x3, CN's II-XII intact bilaterally, moves all extremities, no focal motor deficits and no sensory deficits noted Santosh Coma Scale: document GCS findings Spontaneous Obeys Commands Oriented 15 Sensorium / Orientation: awake and alert Psych mental status grossly normal and thought process normal Skin Skin Narrative: 1 cm partial-thickness clean right eyebrow laceration see above Lesions: no lesions Rashes: no rashes MDM MDM MDM Narrative Medical decision making narrative: 4 view x-ray series of the left wrist including navicular view on my i nterpretation negative for any acute, radiology in agreement. Regardless, given the patient's tenderness on the navicular and the mechanism for injury, I discussed with her the possibility of an occult navicular fracture for which she should be splinted in a thumb spica and follow-up with orthopedics. She was comfortable with that, this patient has good range of motion and I think it would be reasonable to put her in a Velcro thumb spica splint which we did, and she understands to wear it all the time unless she is getting her wrist wet at which point she can take it off temporarily. Her head and facial CTs are negative for any acute. Her laceration was Dermabond did, taking care to keep eyelashes and eyebrow hair out of the laceration. She was given appropriate discharge instructions regarding all of this as well as some Tylenol and an ice pack for pain. I did not think we needed to repeat her INR since she just had it checked a couple days ago and it was on the low side. Patient has some rings on her left hand, she was advised to remove those and leave them off until she sees orthopedics. Radiography Diagnostic Testing: Clinical Impression(s) from Imaging Studies Brain CT 08/27/22 21:24 IMPRESSION: Normal unenhanced CT scan of the brain. Soft tissue swelling. Electronically Signed: Wolf Gant MD at 22:49 EST , Facial/Sinus 08/27/22 21:24 IMPRESSION: Right periorbital soft tissue swelling. No fracture. Electronically Signed: Wolf Gant MD at 22:59 EST , Wrist X-Ray 08/27/22 21:45 IMPRESSION: No acute fracture or dislocation. Electronically Signed: Patrice Oscar MD at 22:23 EST , Procedures Lacerations R eyebrow: Length: 1 cm Depth: Skin Shape: Linear Prep: Sterile Conditions and Shure-Clens Laceration repair: Dermabond and Local (LET topically only) Discharge Plan Triage Chief Complaint: Fall ED Provider: Wolf Lemus Dx/Rx/DC Orders Clinical Impression: Closed head injury without loss of consciousness, Contusion of face, Facial laceration, Fall from slip, trip, or stumble, Warfarin-induced coagulopathy Instructions: Black Eye, ED Head Injury (Adult), ED Laceration, Face: Skin Glue Prescriptions: No Action warfarin 2.5 mg tablet 2.5 mg PO DAILY Rx Instructions: as directed polysaccharide iron complex [iFerex 150] 150 mg iron capsule 150 mg PO DAILY rosuvastatin 5 mg tablet 5 mg PO DAILY Lantus Solostar U-100 Insulin 100 unit/mL (3 mL) insulin pen 33 unit subcut DAILY biotin 10,000 mcg capsule 10,000 mcg PO DAILY clopidogrel 75 mg tablet 75 mg PO DAILY metformin 500 mg tablet extended release 24 hr 1,000 mg PO BIDCM atorvastatin 10 mg tablet 10 mg PO QHS 30 Days Qty: 30 0RF potassium chloride 20 mEq tablet,ER particles/crystals 40 meq PO BID 30 Days Qty: 120 0RF metoprolol tartrate 50 mg tablet 50 mg PO BID 30 Days Qty: 60 0RF Primary Care Provider: Nena Calvillo Referrals: Nena Calvillo MD [Primary Care Provider] - 3-5 Days if not improving Tam Marshall MD [Med Staff - Active Staff] - 3-5 Days Disposition Disposition: Home, Self Care
[2022-08-27] MEDS: Lidocaine/Epi/Tetracaine 50 ML 1 APPLIC TOPICAL (21:36)
--- NOTE | 2022-08-27 21:45 | RAD_ITS ---
STUDY: X-RAY - LEFT WRIST REASON FOR EXAM: Female, 67 years old. injury -- add navicular please TECHNIQUE: 4 view(s) of the wrist were obtained. COMPARISON: None. FINDINGS: Normal visualized distal radius and ulna. Normal radiocarpal articulation. Normal distal radioulnar articulation. Normal carpal bones. Normal carpal articulations. There is degenerative arthrosis of the carpometacarpal articulation of the thumb. Normal second through fifth carpometacarpal articulations. Normal visualized metacarpal bones. The soft tissue structures are unremarkable. RAD/Wrist min 3 Views IMPRESSION: No acute fracture or dislocation. Electronically Signed: Patrice Oscar MD at 22:23 EST ,
[2022-08-27] MEDS: Acetaminophen 500 MG Tablet 1000 MG PO (23:18)
[2022-08-27 23:19] VITALS: O2SAT 99
== END 2022-08-27 23:21 | disposition home or self-care (01) ==
PROVIDERS: Emergency Provider Emergency Medicine; PCP Internal Medicine; Visit Provider Emergency Medicine
DX: S01.81XA Laceration without foreign body of other part of head, initial encounter (principal); D68.32 Hemorrhagic disorder due to extrinsic circulating anticoagulants; E11.9 Type 2 diabetes mellitus without complications; I25.10 Atherosclerotic heart disease of native coronary artery without angina pectoris; R51.9 Headache, unspecified; I10 Essential (primary) hypertension; Z87.891 Personal history of nicotine dependence; E78.5 Hyperlipidemia, unspecified; S09.90XA Unspecified injury of head, initial encounter; W01.0XXA Fall on same level from slipping, tripping and stumbling without subsequent striking against object, initial encounter; T45.515A Adverse effect of anticoagulants, initial encounter
CPT/HCPCS: 12011; 70450; 70486; 73110; 99283

== ENCOUNTER 2023-02-19 06:27 | Emergency (ER) | payer MEDICARE, SELFPAY ==
[2023-02-19 06:28] VITALS: BP 212/85; PULSE 67; RESP 18; TEMP 36; O2SAT 99; BMI 42.2
--- NOTE | 2023-02-19 06:52 | CT_ITS ---
STUDY: CT ABDOMEN AND PELVIS WITH CONTRAST REASON FOR EXAM: Female, 67 years old. RLQ pain RADIATION DOSAGE (If Supplied By Facility): CTDIvol = ( 22.06 ) mGy, DLP = ( 1193.28 ) mGycm TECHNIQUE: Transaxial images were obtained from the dome of the diaphragm to the symphysis pubis without oral contrast. IV 100mL Isovue-300 was administered. Sagittal and coronal images were reconstructed. Individualized dose optimization techniques were used for this CT. COMPARISON: Comparison is made with prior study dated August 22, 2021. FINDINGS: Stable mild increased signal markings at the lung bases suggestive of scarring. Coronary artery calcification. There is decreased attenuation of the liver consistent with steatosis. There are surgical clips in the gallbladder fossa consistent with a prior cholecystectomy. Normal spleen. Normal pancreas. Normal bilateral adrenal glands. Normal right kidney. Normal left kidney. Normal visualized stomach. Normal small intestine. 3 tiny calcific densities are seen in the region of the cecum. This may represent ingested material. This was not present on prior study. Mild degree of inflammation is seen surrounding the cecum. The appendix is visualized and appears normal. There is scattered atherosclerotic calcification of the abdominal aorta, without a demonstrated aneurysm. Normal inferior vena cava. Normal retroperitoneum. Diffuse bladder wall thickening although the bladder is not completely distended at this time. Midline anterior abdominal wall hernia containing nondilated portion of the transverse colon. This is on the left side of the umbilicus. The neck of the hernia measures 3 cm. There are degenerative changes of the visualized lumbar spine. CT/Abdomen/Pelvis W IV Cont ONLY IMPRESSION: Fatty infiltration of the liver. Mild inflammatory changes seen in the region of the cecum. Diffuse bladder wall thickening. Stable left periumbilical hernia. Electronically Signed: Gabo Mercer MD at 8:15 EDT ,
[2023-02-19] MEDS: Ketorolac 15 MG/ML Vial IV (07:03)
[2023-02-19 07:04] LABS: Mucous, Urine 0 SEEN /hpf (<or=2+)
[2023-02-19 07:06] LABS: Absolute Lymphocyte Count 2.77 X10^3/uL (0.83-4.51); Absolute Neutrophil Count 4.1 X10^3/uL (2.0-7.7); Basophil# 0.06 X10^3/uL; Basophil% 0.8 % (0-1); Eosinophil# 0.22 X10^3/uL; Eosinophils% 2.8 % (0-5); Hematocrit 40.6 % (37-47); Hemoglobin 13.2 g/dL (12.0-15.0); Lymphocyte # 2.77 X10^3/ul (0.83-4.51); Lymphocyte % 35.5 % (19-41); Mean Corp Hgb Conc 32.5 g/dL (32-36); Mean Corpuscular Hgb 29.7 pg (27.0-32.0); Mean Corpuscular Volume 91.4 fL (81-99); Monocyte# 0.64 X10^3/uL; Monocyte% 8.2 % (0-10); NRBC Flagged by Analyzer 0 % (0-5); Neutrophil # 4.09 X10^3/uL (2.7-7.7); Neutrophil % 52.3 % (47-70); Platelet Count 303 K/mm3 (150-450); RBC Distribution Width CV 13.4 % (11.6-14.6); RBC Distribution Width SD 45.2 fl (35.1-43.9); Red Blood Count 4.44 M/mm3 (4.2-5.4); White Blood Count 7.8 K/mm3 (4.4-11.0)
[2023-02-19 07:07] LABS: Color, Urine Yellow (Yellow); Glucose, Dipstick Normal (Normal); Ketone-Dipstick Negative (Negative); Leukocyte Esterase-Dipstick 100 /ul (Negative); Nitrite-Dipstick Negative (Negative); Occult Blood-Urine 10 /ul (Negative); Protein-Dipstick 100 mg/dl (Negative); Urine Bilirubin Dipstick Negative (Negative); Urine Clarity Cloudy (Clear); Urine Urobilinogen Normal (Normal)
[2023-02-19 07:11] VITALS: BP 175/87; PULSE 86; RESP 14; O2SAT 99
[2023-02-19 07:12] LABS: Bacteria 3+ /hpf (None Seen); Red Blood Cells-Urine 0-5 SEEN /hpf (0-5); Squamous Epithelial Cells - UA 0-5 SEEN /hpf (5-10); White Blood Cells 0-5 SEEN /hpf (0-5)
[2023-02-19 07:23] LABS: Anion Gap 5 (5-15); BUN 14 mg/dL (7-18); BUN/Creat Ratio 16.1 RATIO (10-20); Calcium,Total 9.3 mg/dL (8.5-10.1); Chloride 103 mmol/L (98-107); Creatinine, Serum 0.87 mg/dL (0.55-1.02); EST Glomerular Filtration Rate 69 mL/min (>60); Est Glom Filt Rate - Afr Amer 83 mL/min (>60); Estimated Creatinine Clearance 54.18 ml/min; Glucose 139 mg/dL (74-106); Potassium 3.9 mmol/L (3.5-5.1); Sodium Level 135 mmol/L (136-145)
--- NOTE | 2023-02-19 07:30 | EX.ED.DYSGE1 ---
HPI <Dr. Dane Parrish DO - Last Filed: 02/19/23 07:36> History of Present Illness Chief Complaint: Complaint Informant: patient Narrative Narrative: Patient is a 67-year-old female with past medical history of hypertension hyperlipidemia diabetes and CAD. She states for the past 4 months she has been having recurrent urinary tract infections. She states she does not get the typical urgency and dysuria but she gets urinary frequency. She states she has had multiple urine samples obtained and culture sent and these have grown out E. coli. She states over the month of December and January while she was out of state in [place] she was on antibiotic for the entire month. She states she was doing well early February but noticed some frequency and had a sample obtained on February 10 which reportedly grew E. coli once again. She was recently started on Keflex as she has had no symptom improvement but despite taking the medication for the past few days she has been having increasing right-sided back and abdominal pain. She denies any fevers or chills and states has been mild loose stool but this is not frequent in nature. She states that the pain in her abdomen and back is not consistent with her previous infections and secondary to this she presents for evaluation. [facility] <Dr. Dane Parrish DO - Last Filed: 02/19/23 07:36> [facility] Medical History Acidosis, lactic Acute alteration in mental status Acute hypotension Acute renal insufficiency Anxiety Atherosclerotic heart disease of [place] coronary artery without angina pectoris Atrial fibrillation with rapid ventricular response Chest pain Chronic respiratory failure with hypoxia Coronary artery disease Depression Diabetes mellitus Essential hypertension Hx of non-ST elevation myocardial infarction (NSTEMI) Hyperlipidemia Hyperlipidemia Hypertension Hypokalemia Nail dystrophy NSTEMI (non-ST elevated myocardial infarction) Old myocardial infarction Paroxysmal atrial fibrillation Paroxysmal atrial fibrillation with RVR Pneumonia due to COVID-19 virus Presence of stent in coronary artery (~12/28/18) S/P coronary artery stent placement (~12/28/18) Tachycardia Type 2 diabetes mellitus Unstable angina Urinary tract infection Home Medications clopidogrel 75 mg tablet 75 mg PO DAILY Antiplatelet 07/10/21 [History Last Taken Unknown] metformin 500 mg tablet,extended release 24 hr 1,000 mg PO BIDCM Diabetes 07/10/21 [History Last Taken Unknown] atorvastatin 10 mg tablet 10 mg PO QHS Cholesterol 30 days #30 tabs 07/24/21 [Rx Last Taken Unknown] metoprolol tartrate 50 mg tablet 50 mg PO BID BP 30 days #60 tabs 07/24/21 [Rx Last Taken Unknown] potassium chloride 20 mEq tablet,extended release(part/cryst) 40 meq PO BID Supplement 30 days #120 tabs 07/24/21 [Rx Last Taken Unknown] polysaccharide iron complex 150 mg iron capsule (iFerex 150) 150 mg PO DAILY 08/15/21 [History Last Taken Unknown] rosuvastatin 5 mg tablet 5 mg PO DAILY 08/15/21 [History Last Taken Unknown] warfarin 2.5 mg tablet 2.5 mg PO DAILY 08/15/21 [History Last Taken Unknown] insulin glargine 100 unit/mL (3 mL) subcutaneous pen (Lantus Solostar U-100 Insulin) 33 unit subcut DAILY Diabetes 04/18/22 [History Last Taken Unknown] biotin 10,000 mcg capsule 10,000 mcg PO DAILY 08/21/22 [History Last Taken Unknown] amoxicillin 875 mg-potassium clavulanate 125 mg tablet 875 mg PO Q12H #20 TABLETS 02/19/23 [Rx Last Taken Unknown] hydrocodone-acetaminophen 5-325mg 5mg-325mg 1 tab PO Q6H PRN PRN Pain 3 days #10 TABLETS 02/19/23 [Rx Last Taken Unknown] metronidazole 500 mg tablet 500 mg PO Q8H #21 tabs 02/19/23 [Rx Last Taken Unknown] Allergy/AdvReac Type Severity Reaction Status Date / Time Sulfa (Sulfonamide Allergy Hives Verified 02/19/23 06:32 Antibiotics) Surgical History History of cholecystectomy Presence of coronary angioplasty implant and graft (~12/28/18) Social History household members: children housing: house Smoking Status: Former smoker alcohol intake: never substance use type: does not use caffeine: No ROS <Dr. Dane Parrish, DO - Last Filed: 02/19/23 07:36> ROS ED Constitutional Constitutional ED: Denies chills or fever(s) ENT ENT ED: Denies sore throat Cardiovascular Cardiovascular: Denies chest pain Respiratory/Chest Respiratory/Chest: Denies cough or dyspnea Gastrointestinal Gastrointestinal: Reports abdominal pain and diarrhea; Denies nausea or vomiting Genitourinary Genitourinary ED: Reports urinary frequency; Denies dysuria or hematuria Musculoskeletal Musculoskeletal: Reports back pain; Denies myalgias Integumentary Denies rash Neurologic Neurologic: Denies headache(s) Hematologic/Lymphatic Hematologic/Lymphatic: Denies easy bleeding or easy bruising EXAM <Dr. Dane Parrish DO - Last Filed: 02/19/23 07:36> Physical Exam Const Vital Signs: 02/19/23 06:28 02/19/23 07:11 Temperature 96.8 F L Temperature Source Temporal Pulse Rate 67 86 Respiratory Rate 18 14 Blood Pressure 212/85 H 175/87 H Blood Pressure Mean 127 116 Pulse Ox 99 99 Oxygen Delivery Method Room Air Positive well nourished, well developed and obese General Appearance ED: well developed Nutritional Appearance: obese HEENT Reports moist mucous membranes Eyes PERRL and EOMs intact bilaterally General Eye ED: Negative for scleral icterus Neck supple Resp normal respiratory effort and clear to auscultation bilaterally Cardio regular rate and regular rhythm Rate: other Other Details: Radial pulses are plus 2 out of 4 bilaterally are equal and symmetric GI non-tender and non-distended GI Narrative: Abdomen is obese soft and nondistended with normal active bowel sounds. There is a ventral hernia present that is reducible in nature. Patient has pain with palpation in the right upper mid and lower abdomen without voluntary guarding or rigidity. There is no pulsatile mass or fluid wave noted. Auscultation: normoactive bowel sounds Palpation: soft Back/Spine Back/Spine Narrative: Positive right CVA pain present Extremity normal to inspection Neuro oriented x3, CN's II-XII intact bilaterally and no sensory deficits noted Sensorium / Orientation: alert Motor Exam: strength 5/5 throughout Psych mental status grossly normal Skin no rashes or lesions noted Skin Narrative: No overlying erythema or ecchymosis to suggest trauma or infection <Dr. Ken Ortega MD - Last Filed: 02/19/23 09:16> Physical Exam Const Vital Signs: 02/19/23 06:28 02/19/23 07:11 Temperature 96.8 F L Temperature Source Temporal Pulse Rate 67 86 Respiratory Rate 18 14 Blood Pressure 212/85 H 175/87 H Blood Pressure Mean 127 116 Pulse Ox 99 99 Oxygen Delivery Method Room Air MDM <Dr. Dane Parrish, DO - Last Filed: 02/19/23 07:36> [facility] Narrative Medical decision making narrative: Patient presented to the ER hypertensive but has a past medical history of this and otherwise with stable vitals. She is reported recurrent UTIs for the past 4 months but has not followed up with urology at this time. She is currently on Keflex but there is concern that the infection may be resistant to the antibiotic as she is having persistent frequency and now right-sided abdominal pain. With concern patient has UTI versus urosepsis versus pyelonephritis versus acute kidney injury a basic work-up was obtained. Labs show no leukocytosis or left shift creatinine is normal going against PATRIC and urine shows +3 bacteria without leukocytosis or contamination indicating infection is most likely still present. However with patient having right-sided abdominal and flank pain which is not consistent with her previous infections there is concern there is an underlying intestinal infection or kidney stone causing the new onset pain and therefore CT scan with IV contrast was ordered. At this time the CT scan is still pending and therefore patient will be signed out to the day physician Dr. Ortega pending results. History & Record Review Discussion w/independent historian: Patient Lab Data Attestation: I reviewed the patient's lab results. Labs: Laboratory Results - last 24 hr 02/19/23 02/19/23 02/19/23 06:47 06:47 06:47 WBC 7.8 RBC 4.44 Hgb 13.2 Hct 40.6 MCV 91.4 MCH 29.7 MCHC 32.5 RDW Std Deviation 45.2 H RDW Coeff of [place] 13.4 Plt Count 303 MPV 10.0 Immature Gran % (Auto) 0.400 Neut % (Auto) 52.3 Lymph % (Auto) 35.5 [place] % (Auto) 8.2 Eos % (Auto) 2.8 Baso % (Auto) 0.8 Absolute Neuts (auto) 4.1 Absolute Lymphs (auto) 2.77 Nucleated RBC % 0 Sodium 135 L Potassium 3.9 Chloride 103 Carbon Dioxide 27.0 Anion Gap 5 BUN 14 Creatinine 0.87 Estim Creat Clear Calc 54.18 Est GFR (MDRD) Af Amer 83 Est GFR (MDRD) Non-Af 69 BUN/Creatinine Ratio 16.1 Glucose 139 H Lactic Acid Calcium 9.3 Urine Color Yellow Urine Clarity Cloudy Urine pH 6.0 Ur Specific [place] 1.010 Urine Protein 100 H Urine Glucose (UA) Normal Urine Ketones Negative Urine Occult Blood 10 H Urine Nitrite Negative Urine Bilirubin Negative Urine Urobilinogen Normal Ur Leukocyte Esterase 100 H Urine RBC 0-5 SEEN Urine WBC 0-5 SEEN Ur Squamous Epith Cells 0-5 SEEN Urine Bacteria 3+ Urine Mucus 0 SEEN 02/19/23 07:10 WBC RBC Hgb Hct MCV MCH MCHC RDW Std Deviation RDW Coeff of [place] Plt Count MPV Immature Gran % (Auto) Neut % (Auto) Lymph % (Auto) [place] % (Auto) Eos % (Auto) Baso % (Auto) Absolute Neuts (auto) Absolute Lymphs (auto) Nucleated RBC % Sodium Potassium Chloride Carbon Dioxide Anion Gap BUN Creatinine Estim Creat Clear Calc Est GFR (MDRD) Af Amer Est GFR (MDRD) Non-Af BUN/Creatinine Ratio Glucose Lactic Acid 1.4 Calcium Urine Color Urine Clarity Urine pH Ur Specific [place] Urine Protein Urine Glucose (UA) Urine Ketones Urine Occult Blood Urine Nitrite Urine Bilirubin Urine Urobilinogen Ur Leukocyte Esterase Urine RBC Urine WBC Ur Squamous Epith Cells Urine Bacteria Urine Mucus Radiography Diagnostic Testing: Clinical Impression(s) from Imaging Studies Abdomen/Pelvis CT 02/19/23 06:52 IMPRESSION: Fatty infiltration of the liver. Mild inflammatory changes seen in the region of the cecum. Diffuse bladder wall thickening. Stable left periumbilical hernia. Electronically Signed: Gabo Mercer MD at 8:15 EDT , <Dr. Ken Ortega MD - Last Filed: 02/19/23 09:16> [facility] Lab Data Lab results narrative: CBC is markable. Basic metabolic panel reveals a glucose of 139 with normal CO2 anion gap. Urine macro is positive for blood and leukoesterase and negative for nitrites. Microscopic reveals 0-5 RBCs, WBCs and squamous epithelial cells with 3+ bacteria. Of note patient is on antibiotics. Labs: Laboratory Results - last 24 hr 02/19/23 02/19/23 02/19/23 06:47 06:47 06:47 WBC 7.8 RBC 4.44 Hgb 13.2 Hct 40.6 MCV 91.4 MCH 29.7 MCHC 32.5 RDW Std Deviation 45.2 H RDW Coeff of [place] 13.4 Plt Count 303 MPV 10.0 Immature Gran % (Auto) 0.400 Neut % (Auto) 52.3 Lymph % (Auto) 35.5 [place] % (Auto) 8.2 Eos % (Auto) 2.8 Baso % (Auto) 0.8 Absolute Neuts (auto) 4.1 Absolute Lymphs (auto) 2.77 Nucleated RBC % 0 Sodium 135 L Potassium 3.9 Chloride 103 Carbon Dioxide 27.0 Anion Gap 5 BUN 14 Creatinine 0.87 Estim Creat Clear Calc 54.18 Est GFR (MDRD) Af Amer 83 Est GFR (MDRD) Non-Af 69 BUN/Creatinine Ratio 16.1 Glucose 139 H Lactic Acid Calcium 9.3 Urine Color Yellow Urine Clarity Cloudy Urine pH 6.0 Ur Specific [place] 1.010 Urine Protein 100 H Urine Glucose (UA) Normal Urine Ketones Negative Urine Occult Blood 10 H Urine Nitrite Negative Urine Bilirubin Negative Urine Urobilinogen Normal Ur Leukocyte Esterase 100 H Urine RBC 0-5 SEEN Urine WBC 0-5 SEEN Ur Squamous Epith Cells 0-5 SEEN Urine Bacteria 3+ Urine Mucus 0 SEEN 02/19/23 07:10 WBC RBC Hgb Hct MCV MCH MCHC RDW Std Deviation RDW Coeff of [place] Plt Count MPV Immature Gran % (Auto) Neut % (Auto) Lymph % (Auto) [place] % (Auto) Eos % (Auto) Baso % (Auto) Absolute Neuts (auto) Absolute Lymphs (auto) Nucleated RBC % Sodium Potassium Chloride Carbon Dioxide Anion Gap BUN Creatinine Estim Creat Clear Calc Est GFR (MDRD) Af Amer Est GFR (MDRD) Non-Af BUN/Creatinine Ratio Glucose Lactic Acid 1.4 Calcium Urine Color Urine Clarity Urine pH Ur Specific [place] Urine Protein Urine Glucose (UA) Urine Ketones Urine Occult Blood Urine Nitrite Urine Bilirubin Urine Urobilinogen Ur Leukocyte Esterase Urine RBC Urine WBC Ur Squamous Epith Cells Urine Bacteria Urine Mucus Radiography Diagnostic Testing: Clinical Impression(s) from Imaging Studies Abdomen/Pelvis CT 02/19/23 06:52 IMPRESSION: Fatty infiltration of the liver. Mild inflammatory changes seen in the region of the cecum. Diffuse bladder wall thickening. Stable left periumbilical hernia. Electronically Signed: Gabo Mercer MD at 8:15 EDT , CT of the abdomen with IV contrast was reviewed by me. Reveals a significant ventral hernia. There is no evidence of obstruction. There is no obvious renal calculi noted. There is thickening and inflammation of the urinary bladder noted. Awaiting formal read by radiologist, [id number]. Treatment and Re-Evaluation :: Since patient has inflammation of the cecum we will discontinue the cephalexin and prescribe Augmentin and metronidazole. Patient does not have history of alcohol use. She was instructed not to use mouthwash or cough syrups that may contain alcoholic since this may make her very ill. She does have an appointment with nurse practitioner through the [facility] for urology this coming Thursday. Patient also was prescribed pain medicine. Discharge Plan Triage Chief Complaint: Complaint ED Provider: Dane Parrish Dx/Rx/DC Orders Clinical Impression: Type 2 diabetes mellitus, Essential hypertension, UTI (urinary tract infection), Atherosclerotic heart disease of [place] coronary artery without angina pectoris, Hyperlipidemia, Diabetes mellitus with diabetic polyneuropathy, Cecal diverticulitis Instructions: ED Diverticulitis, ED Cystitis Female Adult Prescriptions: New hydrocodone-acetaminophen [hydrocodone-acetaminophen] 5-325 mg tablet 1 tab PO Q6H PRN PRN (Reason: Pain) 3 Days Qty: 10 0RF amoxicillin-pot clavulanate [amoxicillin-pot clavulanate] 875-125 mg tablet 875 mg PO Q12H Qty: 20 0RF metronidazole [metronidazole] 500 mg tablet 500 mg PO Q8H Qty: 21 0RF No Action warfarin 2.5 mg tablet 2.5 mg PO DAILY Rx Instructions: as directed polysaccharide iron complex [iFerex 150] 150 mg iron capsule 150 mg PO DAILY rosuvastatin 5 mg tablet 5 mg PO DAILY Lantus Solostar U-100 Insulin 100 unit/mL (3 mL) insulin pen 33 unit subcut DAILY biotin 10,000 mcg capsule 10,000 mcg PO DAILY clopidogrel 75 mg tablet 75 mg PO DAILY metformin 500 mg tablet extended release 24 hr 1,000 mg PO BIDCM atorvastatin 10 mg tablet 10 mg PO QHS 30 Days Qty: 30 0RF potassium chloride 20 mEq tablet,ER particles/crystals 40 meq PO BID 30 Days Qty: 120 0RF metoprolol tartrate 50 mg tablet 50 mg PO BID 30 Days Qty: 60 0RF Primary Care Provider: Nena Calvillo Referrals: Nena Calvillo MD [Primary Care Provider] - 3-5 Days if not improving Activity Restrictions/Additional Instructions: 1. Keep appointment with urologist for this coming Thursday 2. Do not take anything that contains alcohol while you are on metronidazole 3. Decrease your Coumadin dose from 2.5 mg to 1.25 mg (half tablet for the next 7 days). Disposition Disposition: Home, Self Care
[2023-02-19 07:54] LABS: Lactic Acid 1.4 mmol/L (0.4-1.9)
[2023-02-19] MEDS: Morphine 4 MG/ML Syringe IV (09:06)
[2023-02-19] MEDS: metroNIDAZOLE 500 MG Tablet PO (09:28)
[2023-02-19] MEDS: Amox/Clavulanate 875 MG Tablet PO (09:28)
[2023-02-19 09:42] VITALS: BP 169/88; PULSE 74; RESP 14; O2SAT 99
== END 2023-02-19 09:43 | disposition home or self-care (01) ==
PROVIDERS: Emergency Provider Emergency Medicine; PCP Internal Medicine; Visit Provider Emergency Medicine
DX: K57.92 Diverticulitis of intestine, part unspecified, without perforation or abscess without bleeding (principal); E11.42 Type 2 diabetes mellitus with diabetic polyneuropathy; I48.0 Paroxysmal atrial fibrillation; Z79.4 Long term (current) use of insulin; N39.0 Urinary tract infection, site not specified; I25.10 Atherosclerotic heart disease of native coronary artery without angina pectoris; I10 Essential (primary) hypertension; E78.5 Hyperlipidemia, unspecified; Z87.891 Personal history of nicotine dependence; Z79.02 Long term (current) use of antithrombotics/antiplatelets; Z79.899 Other long term (current) drug therapy; Z79.84 Long term (current) use of oral hypoglycemic drugs; I25.2 Old myocardial infarction; Z79.01 Long term (current) use of anticoagulants; Z95.5 Presence of coronary angioplasty implant and graft; Z90.49 Acquired absence of other specified parts of digestive tract
CPT/HCPCS: 74177; 80048; 81001; 83605; 85025; 87077; 87086; 87088; 87186; 99283; J7040; Q9967; A4216

== ENCOUNTER 2024-07-10 03:29 | Emergency (ER) | payer MEDICARE, SELFPAY ==
[2024-07-10 03:30] VITALS: BP 185/90; PULSE 94; RESP 18; TEMP 37.2; O2SAT 98; BMI 43.4
--- NOTE | 2024-07-10 03:47 | CT_ITS ---
INDICATION: head injury EXAMINATION: CT BRAIN - CT Head or Brain W/O Contrast Injection TECHNIQUE: Serial CT axial images were obtained of the head without intravenous contrast. A radiation dose optimization technique was used for this scan. RADIATION DOSAGE (If Supplied By Facility): CTDIvol/DLP = ( 44.99 ) / ( 829.85 ) mGy/mGycm COMPARISON: 08/27/[address] Findings: Serial CT axial images of the head without contrast. BRAIN PARENCHYMA: Diffuse periventricular hypoattenuation likely chronic white matter ischemic changes. Mild diffuse volume loss. No evidence of intraparenchymal hemorrhage or hyperattenuating extra-axial fluid collection. VASCULAR STRUCTURES: Atherosclerotic vascular calcifications. BONES: Right frontoethmoid sinus mucosal thickening. Tiny right maxillary sinus retention cyst. SCALP/REMAINING SOFT TISSUES: Left periorbital/frontal scalp hematoma. ASPECTS Score for Acute Strokes, if applicable: 10 CT/Brain/Head without Contrast IMPRESSION: Age-related changes as above, without evidence of acute intracranial hemorrhage in this noncontrast head CT. Scalp injury. Sinus disease. Electronically Signed: Brian Saini MD at 5:22 EST ,
--- NOTE | 2024-07-10 03:47 | RAD_ITS ---
INDICATION: pain. Fall. EXAMINATION/TECHNIQUE: X-RAY - LEFT XR Shoulder Min 2 Views COMPARISON: 07/08/2021 chest radiograph. FINDINGS: 2 views of the left shoulder. BONES: Normal anatomic alignment without evidence of fracture or subluxation. No concerning bony lesion or abnormal sclerosis to suggest lesion. JOINTS: Moderate acromioclavicular joint degenerative change. SOFT TISSUES: Unremarkable. RAD/Shoulder min 2 Views IMPRESSION: No acute osseous abnormality of the left shoulder. Electronically Signed: Brian Saini MD at 6:30 EST ,
--- NOTE | 2024-07-10 03:47 | CT_ITS ---
INDICATION: injury EXAMINATION: CT SPINE - CT Spine Cervical W/O Contrast Injection COMPARISON: None. A radiation dose optimization technique was used for this scan. Findings: Serial CT axial images through the cervical spine, with coronal and sagittal reformatted series. BONES: No evidence of cervical spine fracture or subluxation. No concerning bony lesion or abnormal sclerosis to suggest lesion. DISCS/JOINTS: Moderate to severe bilateral C5-C6 neuroforaminal narrowing. There is also severe central bony spinal canal stenosis at this C5-C6 level. SOFT TISSUES: Soft tissue structures are unremarkable. CT/Spine Cervical without Contras IMPRESSION: Severe central bony spinal canal stenosis. Neuroforaminal narrowing. Cervical spine without evidence of acute fracture. Electronically Signed: Brian Saini MD at 5:29 EST ,
[2024-07-10] MEDS: Acetaminophen 500 MG Tablet 1000 MG PO (04:01)
--- NOTE | 2024-07-10 04:13 | RAD_ITS ---
INDICATION: pain EXAMINATION/TECHNIQUE: X-RAY - XR Ribs Unilateral W/ PA Chest Min 3 Views COMPARISON: 07/08/2021 chest radiograph. Findings: Single frontal view of the chest. 4 additional dedicated views of the left ribs. LUNG PARENCHYMA: No definite acute focal airspace disease or mass lesion. PLEURA: No pleural effusion. No pneumothorax. HEART/[place]: Cardiomediastinal silhouette is unremarkable. BONES: Osseous structures are unremarkable for age. RAD/Ribs Uni Min 3V w/PA Chest IMPRESSION: No obvious acute displaced rib fracture. Chest with no definite acute disease. Electronically Signed: Brian Saini MD at 5:45 EST ,
[2024-07-10 04:21] LABS: International Normalized Ratio 2.5; Prothrombin Time (Protime)PT. 26.5 SECONDS (11.7-14.9)
[2024-07-10 05:29] VITALS: BP 162/79; PULSE 89; RESP 20; O2SAT 95
--- NOTE | 2024-07-10 06:32 | EDS_ITS ---
HPI History of Present Illness Chief Complaint: Fall Informant: patient and family Narrative Narrative: Patient is a 69-year-old female with past medical history of paroxysmal atrial fibrillation currently on Coumadin and Plavix. She also has a past medical history of hypertension hyperlipidemia and type 2 diabetes. She states she awoke roughly 30 minutes to 1 hour prior to arrival to go to the bathroom and as she was walking she tripped and fell striking her head on the ground. She states she did not have any type of LOC and the daughter whom she lives with states she was sleeping and heard the thud. She states she awoke and went and found her mother awake and on the ground however with her history of blood thinner use and the fact she struck her head there was concern for internal injury and she was brought in for evaluation. She does states she was able to get up and ambulate under her own power [facility] Medical History Paroxysmal atrial fibrillation Nail dystrophy Hypokalemia Hypertension Diabetes mellitus Hyperlipidemia Coronary artery disease Chronic respiratory failure with hypoxia Pneumonia due to COVID-19 virus Acute alteration in mental status Acute renal insufficiency Acidosis, lactic Acute hypotension Atrial fibrillation with rapid ventricular response Anxiety Urinary tract infection Paroxysmal atrial fibrillation with RVR Presence of stent in coronary artery (~12/28/18) Old myocardial infarction Hx of non-ST elevation myocardial infarction (NSTEMI) S/P coronary artery stent placement (~12/28/18) Essential hypertension Atherosclerotic heart disease of [place] coronary artery without angina pectoris Unstable angina NSTEMI (non-ST elevated myocardial infarction) Tachycardia Depression Hyperlipidemia Type 2 diabetes mellitus Chest pain Home Medications ?Medication ?Instructions ?Recorded ?Last Taken ?Type clopidogrel 75 mg tablet 75 mg PO DAILY Antiplatelet 07/10/21 Unknown History metformin 500 mg tablet,extended 1,000 mg PO BIDCM Diabetes 07/10/21 Unknown History release 24 hr metoprolol tartrate 50 mg tablet 50 mg PO BID BP 30 days #60 tabs 07/24/21 Unknown Rx polysaccharide iron complex 150 mg 150 mg PO DAILY 08/15/21 Unknown History iron capsule (iFerex 150) rosuvastatin 5 mg tablet 5 mg PO DAILY 08/15/21 Unknown History warfarin 2.5 mg tablet 2.5 mg PO DAILY 08/15/21 Unknown History insulin glargine 100 unit/mL (3 33 unit subcut DAILY Diabetes 04/18/22 Unknown History mL) subcutaneous pen (Lantus Solostar U-100 Insulin) biotin 10,000 mcg capsule 10,000 mcg PO DAILY 08/21/22 Unknown History fluoxetine 40 mg capsule 40 mg PO DAILY 02/25/23 Unknown History acetaminophen 500 mg capsule 500 mg PO Q6H PRN fever or pain 07/10/24 Unknown History methocarbamol 500 mg tablet 500 mg PO 4X/DAY PRN Muscle 07/10/24 Unknown Rx pain/spasm #40 tabs Allergy/AdvReac Type Severity Reaction Status Date / Time Sulfa (Sulfonamide Allergy Hives Verified 07/10/24 03:30 Antibiotics) Surgical History History of cholecystectomy Presence of coronary angioplasty implant and graft (~12/28/18) Social History household members: children housing: house Smoking Status: Former smoker alcohol intake: never substance use type: does not use caffeine: No ROS ROS ED Constitutional Constitutional ED: Denies chills or fever(s) Eyes Eyes: Denies change in vision or diplopia ENT ENT ED: Denies sore throat Cardiovascular Cardiovascular: Reports other Details: Negative syncope ; Denies chest pain, palpitations or racing heartbeat Respiratory/Chest Respiratory/Chest: Denies cough or dyspnea Gastrointestinal Gastrointestinal: Denies abdominal pain, diarrhea, nausea or vomiting Genitourinary Genitourinary ED: Denies dysuria Musculoskeletal Musculoskeletal: Reports neck pain and other Details: Positive left shoulder and left rib pain ; Denies back pain Integumentary Reports other Details: Positive ecchymosis ; Denies Abrasions or rash Neurologic Neurologic: Denies headache(s), paresthesias or weakness Hematologic/Lymphatic Hematologic/Lymphatic: Reports easy bleeding and easy bruising EXAM Physical Exam Const Vital Signs: 07/10/24 03:30 07/10/24 03:34 07/10/24 05:29 Temperature 98.9 F Temperature Source Oral Pulse Rate 94 89 Respiratory Rate 18 20 H Respiratory Effort Normal Blood Pressure 185/90 H 162/79 H Blood Pressure Mean 121 106 Pulse Ox 98 95 Oxygen Delivery Method Room Air Room Air 07/10/24 06:48 Temperature 98.0 F Temperature Source Pulse Rate 85 Respiratory Rate 18 Respiratory Effort Blood Pressure 153/79 H Blood Pressure Mean 103 Pulse Ox 97 Oxygen Delivery Method Positive well nourished, well developed and obese General Appearance ED: well developed Nutritional Appearance: obese HEENT HEENT Narrative: Patient has a 2 x 2 cm hematoma to the left portion of the forehead/frontal bone just above the eyebrow consistent with report of fall and head injury. Otherwise there are no signs of depressed or basilar skull fracture No septal hematoma Eyes PERRL and EOMs intact bilaterally Eyes Narrative: No hyphema noted Neck supple Neck Narrative: No bony deformity or step-off of the cervical spine but there is diffuse pain with palpation of the neck Chest Wall Chest Narrative: No bony deformity or crepitance of the chest wall noted but patient does have pain with palpation along the left anterior lateral chest wall rib regions 6-10 Resp normal respiratory effort and clear to auscultation bilaterally Cardio regular rate and regular rhythm GI normal to inspection, nondistended, normoactive bowel sounds, non-tender, non- distended and no masses GI Narrative: No ecchymosis noted Auscultation: normoactive bowel sounds Palpation: soft Back/Spine Back/Spine Narrative: No bony deformity or step-off of the thoracic or lumbar spine no midline tenderness to palpation Extremity Extremity Narrative: Pelvis is stable there is no shortening or external rotation of either lower extremity Patient has pain on palpation of the left shoulder diffusely without obvious bony deformity or joint effusion. Negative sulcus sign. Active range of motion the left shoulder is decreased secondary to pain Neuro oriented x3, CN's II-XII intact bilaterally and no sensory deficits noted Sensorium / Orientation: alert Psych mental status grossly normal Skin Skin Narrative: Ecchymosis and hematoma to the left portion of the frontal bone/forehead as documented above MDM MDM MDM Narrative Medical decision making narrative: Patient arrived to ER hypertensive but has a past medical history of this. She reported mechanical fall so I felt no need for cardiac or syncope workup. However she is on anticoagulation secondary to her history of proximal A-fib and struck her head so there is concern for traumatic skull fracture versus traumatic subarachnoid or subdural hemorrhage. With pain into the neck there is concern for compression fracture or spondylolisthesis. Patient may also have a rib fracture versus pneumothorax or potential shoulder dislocation or clavicle fracture. Therefore a CT scan of the head and neck were obtained with x-rays of the chest/ribs and left shoulder. All imaging studies revealed no signs of acute trauma. The patient remained awake and alert and was able to ambulate to and from the bathroom. Therefore at this time with no signs of internal injury the fact she is able to ambulate under her own power and it was a mechanical fall and not a syncopal event there is no need for further evaluation and patient is otherwise safe for discharge History & Record Review Discussion w/independent historian: Patient and Family Lab Data Attestation: I reviewed the patient's lab results. Labs: Laboratory Results - last 24 hr 07/10/24 03:55 PT 26.5 H INR 2.5 Radiography Diagnostic Testing: Clinical Impression(s) from Imaging Studies Brain CT 07/10/24 03:47 IMPRESSION: Age-related changes as above, without evidence of acute intracranial hemorrhage in this noncontrast head CT. Scalp injury. Sinus disease. Electronically Signed: Brian Saini MD at 5:22 EST , Cervical Spine CT 07/10/24 03:47 IMPRESSION: Severe central bony spinal canal stenosis. Neuroforaminal narrowing. Cervical spine without evidence of acute fracture. Electronically Signed: Brian Saini MD at 5:29 EST , Shoulder X-Ray 07/10/24 03:47 IMPRESSION: No acute osseous abnormality of the left shoulder. Electronically Signed: Brian Saini MD at 6:30 EST , Ribs w/Chest X-Ray 07/10/24 04:13 IMPRESSION: No obvious acute displaced rib fracture. Chest with no definite acute disease. 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, Essential hypertension, Type 2 diabetes mellitus, Paroxysmal atrial fibrillation Instructions: Bone Contusion, ED Head Injury (Adult), ED Hematoma Prescriptions: New methocarbamol 500 mg tablet 500 mg PO 4X/DAY PRN (Reason: Muscle pain/spasm) Qty: 40 0RF No Action warfarin 2.5 mg tablet 2.5 mg PO DAILY Rx Instructions: as directed polysaccharide iron complex [iFerex 150] 150 mg iron capsule 150 mg PO DAILY rosuvastatin 5 mg tablet 5 mg PO DAILY Lantus Solostar U-100 Insulin 100 unit/mL (3 mL) insulin pen 33 unit subcut DAILY biotin 10,000 mcg capsule 10,000 mcg PO DAILY fluoxetine 40 mg capsule 40 mg PO DAILY clopidogrel 75 mg tablet 75 mg PO DAILY metformin 500 mg tablet extended release 24 hr 1,000 mg PO BIDCM metoprolol tartrate 50 mg tablet 50 mg PO BID 30 Days Qty: 60 0RF acetaminophen 500 mg capsule 500 mg PO Q6H PRN (Reason: fever or pain) Primary Care Provider: Nena Calvillo Referrals: Nena Calvillo MD [Primary Care Provider] - Activity Restrictions/Additional Instructions: Your INR value was 2.5 which is a normal range for someone on Coumadin. Please relay this information to your physicians he do not need to have a repeat INR check for the month of July. Continue with Tylenol and add the muscle relaxer for pain control. Add [id number] lidocaine patches or IcyHot or topical pain creams as needed as well. Return to the ER should you have any further concerns or worsening of symptoms Print Language: Divehi Disposition Disposition: Home, Self Care Discharge Date/Time: 07/10/24 06:49
[2024-07-10 06:48] VITALS: BP 153/79; PULSE 85; RESP 18; TEMP 36.7; O2SAT 97
== END 2024-07-10 06:49 | disposition home or self-care (01) ==
PROVIDERS: Emergency Provider Emergency Medicine; PCP Internal Medicine; Visit Provider Emergency Medicine
DX: S09.90XA Unspecified injury of head, initial encounter (principal); I48.0 Paroxysmal atrial fibrillation; E11.9 Type 2 diabetes mellitus without complications; I10 Essential (primary) hypertension; Z87.891 Personal history of nicotine dependence; E78.5 Hyperlipidemia, unspecified; I25.10 Atherosclerotic heart disease of native coronary artery without angina pectoris; S00.03XA Contusion of scalp, initial encounter; S20.219A Contusion of unspecified front wall of thorax, initial encounter; Z79.01 Long term (current) use of anticoagulants; Z79.02 Long term (current) use of antithrombotics/antiplatelets; W01.0XXA Fall on same level from slipping, tripping and stumbling without subsequent striking against object, initial encounter; E66.9 Obesity, unspecified
CPT/HCPCS: 70450; 71101; 72125; 73030; 85610; 99283; A4216

== ENCOUNTER → 2024-12-30 | Outpatient (CLI) | payer MEDICARE, SELFPAY ==
--- NOTE | 2024-12-30 09:52 | US_ITS ---
PROCEDURE: ABD LIMITED W/ ELASTOGRAPHY REASON FOR EXAM: MASLD COMPARISON: None. TECHNIQUE: Right upper quadrant abdominal ultrasound. Oc ElastQ Imaging shear wave elastography for non-invasive assessment of liver tissue stiffness. Oc EPIQ Elite. FINDINGS: LIVER: Size: Enlarged (hepatomegaly) Length: 19.8 cm Echotexture: Diffusely echogenic suggesting fatty infiltration Contour: Normal Lesions: None identified Elastography: EQI Med: 18.3 kPa EQI Med Alexander: 2.43 m/s IQR/Med: 60 %* GALLBLADDER: Surgically absent. COMMON BILE DUCT: Dilated measuring up to 9 mm. PANCREAS: Normal Visualized portions of the right kidney are unremarkable. No right upper quadrant ascites. US/ABD Limited w/ Elastography IMPRESSION: SEVERE HEPATIC FIBROSIS / CIRRHOSIS Hepatomegaly. Reference Values: SRU <1.37 m/s (5.7kPa): No to mild fibrosis 1.37 m/s - 2.2 m/s: Moderate to severe fibrosis >2.2 m/s (15kPa): Significant fibrosis / cirrhosis METAVIR Score F2 or higher: 1.34 m/s (5.7kPa) F3 or higher: 1.55 m/s (7.3kPa) F4: 1.80 m/s (10kPa) * If the IQR/Med is >30%, the variance in the measurements is a large and the a ccuracy of the measurement may be in question. Reading Location: [place] [address]
== END | disposition home or self-care (01) ==
PROVIDERS: PCP Internal Medicine; Referring Provider Internal Medicine; Visit Provider Internal Medicine
DX: K76.0 Fatty (change of) liver, not elsewhere classified (principal)
CPT/HCPCS: 76705; 76981

== ENCOUNTER 2025-08-21 12:37 | Inpatient (IN) | payer MEDICARE, SELFPAY ==
[2025-08-21] VITALS (15 sets, daily range): BP systolic 138–168; BP diastolic 76–110; PULSE 78–109; RESP 17–26; TEMP 36.3–36.6; O2SAT 92–100; BMI 49.4; BMI 43.8
--- NOTE | 2025-08-21 12:58 | EKG12_ITS ---
Test Reason : SOB Blood Pressure : */* mmHG Vent. Rate : 83 BPM Atrial Rate : * BPM P-R Int : * ms QRS Dur : 82 ms QT Int : 406 ms P-R-T Axes : * 65 19 degrees QTcB Int : 477 ms Atrial fibrillation Septal infarct , age undetermined Abnormal ECG Confirmed by KATHLEEN DAVIS, MARTI ([id number]), editor school photograph ARNOLD MILNER ([id number]) on 08/22/2025 1:25:25 PM Referred By: Confirmed By: MARTI WANG MD
[2025-08-21 13:21] LABS: Hematocrit 36.8 % (37-47); Hemoglobin 11.6 g/dL (12.0-15.0); Immature Granulocytes Count 0.030 X10^3/uL (0.0-0.0); Mean Corp Hgb Conc 31.5 g/dL (32-36); Mean Corpuscular Volume 93.6 fL (81-99); Mean Platelet Vol. 10.3 fl (6.2-12.0); NRBC Flagged by Analyzer 0 % (0-5); Platelet Count 265 K/mm3 (150-450); RBC Distribution Width CV 13.9 % (11.6-14.6); RBC Distribution Width SD 47.8 fl (35.1-43.9); Red Blood Count 3.93 M/mm3 (4.2-5.4); White Blood Count 6.4 K/mm3 (4.4-11.0)
[2025-08-21 13:55] LABS: Anion Gap 8 (5-15); BUN 29 mg/dL (4-19); BUN/Creat Ratio 38.2 RATIO (10-20); Calcium,Total 9.2 mg/dL (7.6-11.0); Carbon Dioxide 25.4 mmol/L (21.0-32.0); Chloride 105 mmol/L (98-108); Glucose 145 mg/dL (70-99); Potassium 4.4 mmol/L (3.3-5.1); Troponin T High Sensitivity 17 ng/L (<=14)
--- NOTE | 2025-08-21 14:35 | RAD_ITS ---
PROCEDURE: CHEST PA AND LATERAL 08/21/2025 REASON FOR EXAM: SHORTNESS OF BREATH TECHNIQUE: Procedure Code: RADCXR Modality: DX Procedure: Three-view PA and lateral chest COMPARISON: Chest x-ray of 07/10/2024. RAD/Chest PA and Lateral IMPRESSION: The examination is limited by patient motion, particularly in the lateral view, AP portable technique, body habitus, and hypoinflation. Areas of airspace disease of the right lower lung and left mid to lower lung zo vivi are seen, with differential diagnosis (given the aforementioned limitations) including atelectasis, pneumonitis, and atypica l pulmonary edema. Given the appearance, findings are most suspicious for pneumonitis, at least of the left upper lobe. No pleural effusion or pneumothorax is seen. The cardiomediastinal silhouette is stable, without evidence of cardiomegaly. No interval osseous change is noted. Reading Location: [place] [address]
[2025-08-21 15:58] LABS: D-Dimer Quantitative (DVT/PE) 0.61 FEU/ug/m (0.27-0.49)
[2025-08-21 16:42] LABS: Pro- Brain NATRIURETIC PEPTIDE 1990 pg/mL (<=900)
--- NOTE | 2025-08-21 16:45 | ED.VIS.DYS ---
HPI History of Present Illness Chief Complaint: Shortness of Breath Narrative Narrative: Chief complaint and HPI: 78-year-old female with past medical history of proximal atrial fibrillation on warfarin, CAD, HTN, HLD, DM presents for evaluation of shortness of breath and palpitations. Patient states for the past several days she has been having progressive shortness of breath. Worse with exertion. Endorses orthopnea. States at baseline she has bilateral lower extremity edema in which she has discussed compression stockings with her doctor. No reported heart failure. She states her palpitations occur with ambulation but resolve at rest. She denies any fever, chills, URI symptoms, cough, chest pain, abdominal pain, nausea, vomiting. Review of systems: See HPI Medications: As listed on the chart Allergies: As listed on the chart PFSH: Per chart Vital signs: As listed on the chart. Reviewed. Physical exam: Gen: A&O x3, NAD Head: Normocephalic, atraumatic Eyes: No sclera icterus, conjunctiva clear ENT: Moist mucous membranes Neck: Trachea midline CV: regular rate, irregular regular rhythm, no murmurs, nonpitting peripheral edema with lymphedema skin changes Resp: Lungs diminished in the bilateral bases, no wheezing GI: Abd soft, non-distended, non-tender, no r/r/g Musc: Moves all extremities, no deformity Skin: Warm, dry Psych: Cooperative, appropriate mood and affect [facility] Medical History Paroxysmal atrial fibrillation Nail dystrophy Hypokalemia Hypertension Diabetes mellitus Hyperlipidemia Coronary artery disease Chronic respiratory failure with hypoxia Pneumonia due to COVID-19 virus Acute alteration in mental status Acute renal insufficiency Acidosis, lactic Acute hypotension Atrial fibrillation with rapid ventricular response Anxiety Urinary tract infection Paroxysmal atrial fibrillation with RVR Presence of stent in coronary artery (~12/28/18) Old myocardial infarction Hx of non-ST elevation myocardial infarction (NSTEMI) S/P coronary artery stent placement (~12/28/18) Essential hypertension Atherosclerotic heart disease of [place] coronary artery without angina pectoris Unstable angina NSTEMI (non-ST elevated myocardial infarction) Tachycardia Depression Hyperlipidemia Type 2 diabetes mellitus Chest pain Home Medications ?Medication ?Instructions ?Recorded ?Last Taken ?Type clopidogrel 75 mg tablet 75 mg PO DAILY Antiplatelet 07/10/21 08/21/25 History metformin 500 mg tablet,extended 1,000 mg PO BIDCM Diabetes 07/10/21 08/21/25 History release 24 hr metoprolol tartrate 50 mg tablet 50 mg PO BID BP 30 days #60 tabs 07/24/21 Unknown Rx polysaccharide iron complex 150 mg 150 mg PO DAILY 08/15/21 Unknown History iron capsule (iFerex 150) rosuvastatin 5 mg tablet 5 mg PO DAILY 08/15/21 08/20/25 History warfarin 2.5 mg tablet 2.5 mg PO SUMOTUWEFRSA 08/15/21 08/21/25 History insulin glargine 100 unit/mL (3 40 unit subcut QHS Diabetes 04/18/22 08/20/25 History mL) subcutaneous pen (Lantus Solostar U-100 Insulin) fluoxetine 40 mg capsule 40 mg PO DAILY 02/25/23 08/21/25 History insulin lispro 100 unit/mL 6 unit subcut DAILY 08/21/25 08/21/25 History subcutaneous pen (Humalog KwikPen (U-100) Insulin) warfarin 2.5 mg tablet 1.25 mg PO TH 08/21/25 08/17/25 History Allergy/AdvReac Type Severity Reaction Status Date / Time Sulfa (Sulfonamide Allergy Hives Verified 08/21/25 12:38 Antibiotics) Surgical History History of cholecystectomy Presence of coronary angioplasty implant and graft (~12/28/18) Social History household members: children housing: house Smoking Status: Former smoker alcohol intake: never substance use type: does not use caffeine: No EXAM Physical Exam Const Vital Signs: 08/21/25 12:37 08/21/25 13:16 08/21/25 14:55 Temperature 97.4 F L 97.4 F L Temperature Source Oral Oral Pulse Rate 83 83 Respiratory Rate 22 H 22 H Respiratory Effort Respiratory Depth Respiratory Pattern Blood Pressure 168/110 H 168/110 H Blood Pressure Mean 129 129 Pulse Ox 95 95 94 Oxygen Delivery Method Room Air Room Air Room Air 08/21/25 14:55 08/21/25 14:55 08/21/25 14:56 Temperature Temperature Source Pulse Rate 94 Respiratory Rate 18 Respiratory Effort Short of Breath Respiratory Depth Shallow Respiratory Pattern Normal Blood Pressure 151/102 H Blood Pressure Mean 118 Pulse Ox 94 95 Oxygen Delivery Method Room Air Room Air Room Air 08/21/25 14:58 08/21/25 15:00 Temperature 97.6 F L 97.6 F L Temperature Source Oral Oral Pulse Rate 87 86 Respiratory Rate 17 20 H Respiratory Effort Respiratory Depth Respiratory Pattern Blood Pressure 160/88 H 160/88 H Blood Pressure Mean 112 112 Pulse Ox 95 95 Oxygen Delivery Method Room Air Room Air MDM MDM MDM Narrative Medical decision making narrative: 78-year-old female with past medical history of proximal atrial fibrillation on warfarin, CAD, HTN, HLD, DM presents for evaluation of shortness of breath and palpitations. Patient states for the past several days she has been having progressive shortness of breath. Worse with exertion. Endorses orthopnea. States at baseline she has bilateral lower extremity edema in which she has discussed compression stockings with her doctor. No reported heart failure. She states her palpitations occur with ambulation but resolve at rest. On chart review, patient's last echocardiogram was June 2021 in which she had an EF of 55%. Her last cardiac cath was in December 2018. Differential diagnosis includes but is not limited to heart failure, pneumonia, viral illness, ACS, electrolyte abnormality, PE. Cardiac/respiratory workup ordered. EKG and chest x-ray reviewed. Chest x-ray concerning for heart failure. IV Lasix ordered. However given radiology read of possible pneumonitis and other pathology will obtain CT chest. Given patient is D-dimer was elevated at 0.61 however negative per age adjustment will make it a CTA just to assess for PE although low suspicion. Troponin 17. Patient not having chest pain. Will assess for delta. BNP elevated at 1990. Patient's symptoms are likely secondary to new diagnosis of heart failure. Patient was signed out to oncoming physician Dr. Thomas who will await CTA results with plan to admit for new heart failure. EKG: Interpreted by me/EM physician: EKG shows atrial fibrillation without any acute ischemic changes. Heart rate 83. Normal QTc. Diagnostic: Interpreted by me/EM physician: Chest x-ray shows pulmonary edema with bilateral pleural effusions. Cardiomegaly. No pneumothorax. Per radiology cardiomegaly. Areas of airspace disease in the right lower lung and left mid to lower lung zones are seen with differential diagnosis of atelectasis, pneumonitis, atypical pulmonary edema. Lab Data Labs: Laboratory Results - last 24 hr 08/21/25 08/21/25 13:13 15:04 WBC 6.4 RBC 3.93 L Hgb 11.6 L Hct 36.8 L MCV 93.6 MCH 29.5 MCHC 31.5 L RDW Std Deviation 47.8 H RDW Coeff of Maritza 13.9 Plt Count 265 MPV 10.3 Immature Gran % (Auto) 0.500 Neut % (Auto) 59.3 Lymph % (Auto) 30.9 Wilkin % (Auto) 6.4 Eos % (Auto) 2.3 Baso % (Auto) 0.6 Absolute Neuts (auto) 3.8 Absolute Lymphs (auto) 1.98 Nucleated RBC % 0 D-Dimer Quant (PE/DVT) 0.61 H* Sodium 138 Potassium 4.4 Chloride 105 Carbon Dioxide 25.4 Anion Gap 8 BUN 29 H Creatinine 0.75 Est GFR (MDRD) Non-Af 85 BUN/Creatinine Ratio 38.2 H Glucose 145 H Calcium 9.2 Troponin T High Sens 17 H NT pro BNP II 1990 H Radiography Diagnostic Testing: Clinical Impression(s) from Imaging Studies Chest X-Ray 08/21/25 14:35 IMPRESSION: The examination is limited by patient motion, particularly in the lateral view, AP portable technique, body habitus, and hypoinflation. Areas of airspace disease of the right lower lung and left mid to lower lung zones are seen, with differential diagnosis (given the aforementioned limitations) including atelectasis, pneumonitis, and atypical pulmonary edema. Given the appearance, findings are most suspicious for pneumonitis, at least of the left upper lobe. No pleural effusion or pneumothorax is seen. The cardiomediastinal silhouette is stable, without evidence of cardiomegaly. No interval osseous change is noted. Reading Location: [place] [address] Discharge Plan Triage Chief Complaint: Shortness of Breath ED Provider: Valeriy Funk Dx/Rx/DC Orders Prescriptions: No Action warfarin 2.5 mg tablet 2.5 mg PO SUMOTUWEFRSA polysaccharide iron complex [iFerex 150] 150 mg iron capsule 150 mg PO DAILY rosuvastatin 5 mg tablet 5 mg PO DAILY insulin glargine [Lantus Solostar U-100 Insulin] 100 unit/mL (3 mL) insulin pen 40 unit subcut QHS fluoxetine 40 mg capsule 40 mg PO DAILY clopidogrel 75 mg tablet 75 mg PO DAILY metformin 500 mg tablet extended release 24 hr 1,000 mg PO BIDCM metoprolol tartrate 50 mg tablet 50 mg PO BID 30 Days Qty: 60 0RF warfarin 2.5 mg tablet 1.25 mg PO TH insulin lispro [Humalog KwikPen Insulin] 100 unit/mL insulin pen 6 unit subcut DAILY Patient Comments: AM Primary Care Provider: Nena Calvillo Referrals: Nena Calvillo MD [Primary Care Provider, Internal Medicine] Print Language: [place]
[2025-08-21 17:18] LABS: Troponin T High Sens 2 HR 7 ng/L (<=14)
--- NOTE | 2025-08-21 18:10 | CT_ITS ---
PROCEDURE: CTA CHEST W/WO CONTRAST 08/21/2025 REASON FOR EXAM: PE, SHORTNESS OF BREATH TECHNIQUE: Procedure Code: [id number] Modality: CT Procedure: CTA CHEST W/WO CONTRAST Multiplanar Sagittal and Coronal images were obtained. 3D reconstructions CONTRAST: Isovue 370 VOLUME: 85 mL One or more dose reduction techniques were used (e.g., Automated exposure control, adjustment of the mA and/or kV according to patient size, use of iterative reconstruction technique). RADIATION DOSE SUMMARY: CTDlvol: 38 mGy DLP: 549 mGycm FINDINGS: The pulmonary arterial contrast bolus is adequate. There is no thoracic aneurysm or dissection. There is moderate coronary artery calcification. There is no visible pulmonary arterial filling defects identified. There is no pericardial fluid. Although lung windows were not supplied, there are areas of abnormal ground- glass opacity and patchy airspace change in the upper lobes bilaterally along with interstitial interlobular septal thickening within the lower lobes. There are noted a small left and a moderate right-sided pleural effusion. There is no acute thoracic compression deformity. CT/CTA Chest W/WO Contrast IMPRESSION: Negative for pulmonary embolism. Bilateral pleural effusions. Abnormal patchy airspace disease bilaterally which is nonspecific Reading [facility]
--- NOTE | 2025-08-21 19:40 | HP.PCM_ITS ---
[facility] - General General Date of Admission: 08/21/25 Date of Service: 08/21/25 Chief Complaint: Shortness of breath HPI Narrative ELISABET VAUGHAN, is a 70 F who presents to the emergency room with chief complaint of shortness of breath with exertion and palpitations. Patient has significant past medical history of atrial fibrillation, coronary artery disease, hypertension, hyperlipidemia, chronic lower extremity edema and diabetes. Patient states that she has heart palpitations that occur with activity but resolve at rest and has had progressive shortness of breath with exertion over the past several days getting worse each day. She has no documented history of heart failure and her last echocardiogram was done in 2020 with an ejection fraction of 55%. She has a heart cath history done in 2019. Currently she is resting comfortably oxygen. Laboratory studies reveal white blood cell count of 6.4, hemoglobin 11.6, hematocrit 36.8, platelets 265, sodium 138, potassium 4.4, chloride 105, bicarb 25.4, BUN 29, creatinine 0.75, glucose 145,, INR 2.5, D- dimer 0.6, troponin 17, 7, BNTP 1990. CT angiogram chest is negative for pulmonary embolism but does show small left and moderate right pleural effusions. Patient denies having chest pain and delta troponin was negative. Patient has presumptive new onset diagnosis of heart failure and will be admitted to progressive care unit for further management. Patient does express wishes to be full code. [facility] Medical History Paroxysmal atrial fibrillation Nail dystrophy Hypokalemia Hypertension Diabetes mellitus Hyperlipidemia Coronary artery disease Chronic respiratory failure with hypoxia Pneumonia due to COVID-19 virus Acute alteration in mental status Acute renal insufficiency Acidosis, lactic Acute hypotension Atrial fibrillation with rapid ventricular response Anxiety Urinary tract infection Paroxysmal atrial fibrillation with RVR Presence of stent in coronary artery (~12/28/18) Old myocardial infarction Hx of non-ST elevation myocardial infarction (NSTEMI) S/P coronary artery stent placement (~12/28/18) Essential hypertension Atherosclerotic heart disease of [place] coronary artery without angina pectoris Unstable angina NSTEMI (non-ST elevated myocardial infarction) Tachycardia Depression Hyperlipidemia Type 2 diabetes mellitus Chest pain Home Medications ?Medication ?Instructions ?Recorded ?Last Taken ?Type clopidogrel 75 mg tablet 75 mg PO DAILY Antiplatelet 07/10/21 08/21/25 History metformin 500 mg tablet,extended 1,000 mg PO BIDCM Jennifer betes 07/10/21 08/21/25 History release 24 hr metoprolol tartrate 50 mg tablet 50 mg PO BID BP 30 da ys #60 tabs 07/24/21 Unknown Rx polysaccharide iron complex 150 mg 150 mg PO DAILY 05/28 Unknown History iron capsule (iFerex 150) rosuvastatin 5 mg tablet 5 mg PO DAILY 08/15/2108/20 History warfarin 2.5 mg tablet 2.5 mg PO SUMOTUWEFRSA 08/1508/21/25 History insulin glargine 100 unit/mL (3 40 unit subcut QHS Jennifer betes 04/18/22 08/20/25 History mL) subcutaneous pen (Lantus Solostar U-100 Insulin) fluoxetine 40 mg capsule 40 mg PO DAILY 02/25/2308/07 History insulin lispro 100 unit/mL 6 unit subcut DAILY 5 08/21/25 History subcutaneous pen (Humalog KwikPen (U-100) Insulin) warfarin 2.5 mg tablet 1.25 mg PO TH 08/21/2508/17 History Allergy/AdvReac Type Severity Reaction Status Date / Time Sulfa (Sulfonamide Allergy Hives Verified 08/21/25 12:38 Antibiotics) Surgical History History of cholecystectomy Presence of coronary angioplasty implant and graft (~12/28/18) Social History household members: children housing: house Smoking Status: Former smoker alcohol intake: never substance use type: does not use caffeine: No ROS Constitutional Constitutional: Denies chills or fever(s) Eyes Eyes: Denies blurry vision ENT HEENT: Denies abnormal hearing Cardiovascular Cardiovascular: Reports orthopnea; Denies chest pain or syncope Respiratory/Chest Respiratory/Chest: Reports shortness of breath with exertion; Denies cough or hemoptysis Gastrointestinal Gastrointestinal: Denies abdominal pain Genitourinary Genitourinary: Denies dysuria Musculoskeletal Musculoskeletal: Denies back pain or extremity pain Integumentary Integumentary: Reports dry skin Neurologic Neurologic: Denies abnormal gait Psychiatric Psychiatric: Denies anxiety Vital Signs Vital Signs Vital Signs: 08/21/25 12:37 08/21/25 13:16 08/21/25 14:55 Temperature 97.4 F L 97.4 F L Temperature Source Oral Oral Pulse Rate 83 83 Respiratory Rate 22 H 22 H Respiratory Effort Respiratory Depth Respiratory Pattern Blood Pressure 168/110 H 168/110 H Blood Pressure Mean 129 129 Pulse Ox 95 95 94 Oxygen Delivery Method Room Air Room Air Room Air Oxygen Flow Rate (L/min) 08/21/25 14:55 08/21/25 14:55 08/21/25 14:56 Temperature Temperature Source Pulse Rate 94 Respiratory Rate 18 Respiratory Effort Short of Breath Respiratory Depth Shallow Respiratory Pattern Normal Blood Pressure 151/102 H Blood Pressure Mean 118 Pulse Ox 94 95 Oxygen Delivery Method Room Air Room Air Room Air Oxygen Flow Rate (L/min) 08/21/25 14:58 08/21/25 15:00 08/21/25 16:00 Temperature 97.6 F L 97.6 F L 98 F Temperature Source Oral Oral Oral Pulse Rate 87 86 88 Respiratory Rate 17 20 H 22 H Respiratory Effort Respiratory Depth Respiratory Pattern Blood Pressure 160/88 H 160/88 H 138/98 H Blood Pressure Mean 112 112 111 Pulse Ox 95 95 96 Oxygen Delivery Method Room Air Room Air Room Air Oxygen Flow Rate (L/min) 08/21/25 17:00 08/21/25 17:53 08/21/25 18:00 Temperature 98 F Temperature Source Pulse Rate 78 86 85 Respiratory Rate 26 H 18 21 H Respiratory Effort Respiratory Depth Respiratory Pattern Blood Pressure 147/84 H 139/76 H 154/92 H Blood Pressure Mean 105 97 112 Pulse Ox 94 92 97 Oxygen Delivery Method Room Air Room Air Oxygen Flow Rate (L/min) 08/21/25 19:00 Temperature Temperature Source Pulse Rate 93 Respiratory Rate 24 H Respiratory Effort Respiratory Depth Respiratory Pattern Blood Pressure 156/93 H Blood Pressure Mean 114 Pulse Ox 100 Oxygen Delivery Method Nasal Cannula Oxygen Flow Rate (L/min) 2 Weight Weight: 270 lb 8.115 oz Body Mass Index (BMI) 49.4 Physical Exam Const alert and oriented x3 General Appearance: cooperative and well developed HEENT normocephalic and head/scalp atraumatic Eyes PERRL Neck no lymphadenopathy Lymph Lymphatic: lymphedema moderate Resp normal respiratory effort, normal air movement and clear to auscultation bilaterally Auscultation: Negative for rales, rhonchi or wheezes Cardio regular rhythm, S1 normal heart sound, S2 normal heart sound and no murmurs Rhythm: abnormal rhythm irregularly irregular GI normal to inspection, nondistended, normoactive bowel sounds Extremity General Extremity: edema bilateral lower extremity Details: moderate Skin General Skin Exam: no breakdown Neuro no focal motor deficits and no sensory deficits noted Psych cooperative and affect normal Appearance: appropriate Results Lab / Micro Data 08/21/25 13:13 08/21/25 13:13 Labs: Laboratory Results - last 24 hr 08/21/25 13:13: WBC 6.4, RBC 3.93 L, Hgb 11.6 L, Hct 36.8 L, MCV 93.6, MCH 29.5, MCHC 31.5 L, RDW Std Deviation 47.8 H, RDW Coeff of [place] 13.9, Plt Count 265, MPV 10.3, Immature Gran % (Auto) 0.500, Neut % (Auto) 59.3, Lymph % (Auto) 30.9, Floyd % (Auto) 6.4, Eos % (Auto) 2.3, Baso % (Auto) 0.6, Absolute Neuts (auto) 3.8, Absolute Lymphs (auto) 1.98, Nucleated RBC % 0, Sodium 138, Potassium 4.4, Chloride 105, Carbon Dioxide 25.4, Anion Gap 8, BUN 29 H, Creatinine 0.75, Est GFR (MDRD) Non-Af 85, BUN/Creatinine Ratio 38.2 H, Glucose 145 H, Calcium 9.2, T roponin T High Sens 17 H, NT pro BNP II 1989 H 08/21/25 15:04: D-Dimer Quant (PE/DVT) 0.61 H* 08/21/25 15:28: Troponin T Hi Sens 2 Hr 7 Micro: Microbiology 08/21/25 15:04 Mucosa - Nose SARS-CoV-2, Influenza & RSV (PCR) - Final Imaging Radiology Impression Chest X-Ray 08/21/25 14:35 IMPRESSION: The examination is limited by patient motion, particularly in the lateral view, AP portable technique, body habitus, and hypoinflation. Areas of airspace disease of the right lower lung and left mid to lower lung zones are seen, with differential diagnosis (given the aforementioned limitations) including atelectasis, pneumonitis, and atypical pulmonary edema. Given the appearance, findings are most suspicious for pneumonitis, at least of the left upper lobe. No pleural effusion or pneumothorax is seen. The cardiomediastinal silhouette is stable, without evidence of cardiomegaly. No interval osseous change is noted. [facility] 08/21/25 18:10 IMPRESSION: Negative for pulmonary embolism. Bilateral pleural effusions. Abnormal patchy airspace disease bilaterally which is nonspecific Reading [facility] Assessment & Plan Assessment/Plan (1) CHF (congestive heart failure): (2) Paroxysmal atrial fibrillation: (3) Diabetes mellitus with diabetic polyneuropathy: (4) Depression: (5) Presence of stent in coronary artery: (6) Essential hypertension: PLAN: Plan 1 congestive heart failure?admit patient to progressive care unit, IV Lasix and order echocardiogram to be done in the morning. Will get repeat CBC, BMP and BNTP in the a.m. 2. Atrial fibrillation?rate is controlled and patient is anticoagulated on Coumadin with therapeutic INR 2.5 next 3. Diabetes?continue routine home medications at this time and can check A1c 4. Depression?stable continue routine home therapy 5. DVT prophylaxis?patient is anticoagulated on Coumadin for her atrial fibrillation 6. CODE STATUS full verified with patient directly Charges/Coding Visit Charges Inpatient E&M: 76979 Init Hosp L2
--- OUTSIDE RECORDS SUMMARY | 2025-08-21 20:40 | XMS RPT_ITS | CCD ---
Author Organization [facility] CliniSyid Care Team Providers Care Expert Witness Name Role Phone Estephania Rodriguez MD Primary Care Provider [facility], Keti Unavailable 13, Pharmacist Unavailable Dr. Estephania Rodriguez Primary Care Provider Dr. Estephania Rodriguez Referring Provider Mariano SKIVER [facility], YARELI Juarez Attending Provider Estephania Rodriguez MD Primary Care Provider [facility], Keti Unavailable 13, Pharmacist Unavailable [facility], Keti Unavailable Estephania Rodriguez MD Primary Care Provider [facility], Keti Unavailable 13, Pharmacist Unavailable Dr. Estephania Rodriguez Primary Care Provider Dr. Estephania Rodriguez Referring Provider Dr. Wisam Díaz Attending Provider [facility], Keti Unavailable [facility], Jake Unavailable Estephania Rodriguez MD Primary Care Provider Felton AUDITING SPECIALIST.MANAGER ENERGY, Vinita Unavailable Mansi AUDITING SPECIALIST.CENTRAL OFFICE INSTALLER, Laila Unavailable Mansi AUDITING SPECIALIST.CENTRAL OFFICE INSTALLER, Laila Unavailable Mansi AUDITING SPECIALIST.CENTRAL OFFICE INSTALLER, Laila Unavailable Talampas, Estephania D Attending Unavailable Talampas, Estephania D Referring Unavailable Talampas, Estephania D Primary Care Unavailable Talampas, Estephania D Primary Care Unavailable Dane Parrish Attending Unavailable [place] AUDITING SPECIALIST.MANAGER ENERGY, Vinita Unavailable Felton AUDITING SPECIALIST.MANAGER ENERGY, Vinita Unavailable [facility], Jake Unavailable TALAMPAS, ESTEPHANIA D Referring Unavailable TALAMPAS, ESTEPHANIA D Primary Care Unavailable TALAMPAS, ESTEPHANIA D Primary Care Unavailable TALAMPAS, ESTEPHANIA D Referring Unavailable TALAMPAS, ESTEPHANIA D Primary Care Unavailable TALAMPAS, ESTEPHANIA D Referring Unavailable TALAMPAS, ESTEPHANIA D Primary Care Unavailable TALAMPAS, ESTEPHANIA D Attending Unavailable TALAMPAS, ESTEPHANIA D Primary Care Unavailable TALAMPAS, ESTEPHANIA D Referring Unavailable TALAMPAS, ESTEPHANIA D Primary Care Unavailable TALAMPAS, ESTEPHANIA D Referring Unavailable TALAMPAS, ESTEPHANIA D Primary Care Unavailable TALAMPAS, ESTEPHANIA D Attending Unavailable TALAMPAS, ESTEPHANIA D Primary Care Unavailable BRAYDEN CHAPARRO Referring Unavailable TALAMPAS, ESTEPHANIA D Primary Care Unavailable TALAMPAS, ESTEPHANIA D Referring Unavailable TALAMPAS, ESTEPHANIA D Primary Care Unavailable TALAMPAS, ESTEPHANIA D Referring Unavailable TALAMPAS, ESTEPHANIA D Primary Care Unavailable TALAMPAS, ESTEPHANIA D Attending Unavailable TALAMPAS, ESTEPHANIA D Primary Care Unavailable TALAMPAS, ESTEPHANIA D Referring Unavailable TALAMPAS, ESTEPHANIA D Primary Care Unavailable TALAMPAS, ESTEPHANIA D Referring Unavailable TALAMPAS, ESTEPHANIA D Primary Care Unavailable TALAMPAS, ESTEPHANIA D Referring Unavailable TALAMPAS, ESTEPHANIA D Primary Care Unavailable TALAMPAS, ESTEPHANIA D Referring Unavailable TALAMPAS, ESTEPHANIA D Primary Care Unavailable TALAMPAS, ESTEPHANIA D Referring Unavailable TALAMPAS, ESTEPHANIA D Primary Care Unavailable TALAMPAS, ESTEPHANIA D Referring Unavailable TALAMPAS, ESTEPHANIA D Primary Care Unavailable TALAMPAS, ESTEPHANIA D Primary Care Unavailable TALAMPAS, ESTEPHANIA D Referring Unavailable TALAMPAS, ESTEPHANIA D Primary Care Unavailable Allergies Allergy Classification Reported Allergen(s) Allergy Type Date of Onset Reaction(s) Facility Sulfonamides (antibiotic) (2 sources) Sulfonamides (Antibiotic) Drug Allergy 6 [facility] (20 sources) Sulfonamides (Antibiotic); Translations: [SULFA (SULFONAMIDE ANTIBIOTICS)] Drug Intolerance 6 [facility] (2 sources) Sulfonamides (Antibiotic) Allergy to substance 2 Hives [facility] (1 source) Sulfonamides (Antibiotic) Drug allergy (disorder) 4 [facility] Repository Medications Current Medications Medication Drug Class(es) Dates Sig (Normalized) Sig (Original) acetaminophen 325 mg / HYDROcodone bitartrate 5 mg oral tablet (1 source) Opioid Agonist Start: 02-19-2023 take 1 tablet by mouth every six hours as needed Hydrocodone-Aceta minophen Active 1 TABLET PO EVERY 6 HOURS NEEDED 10 February 19, 2023 Start: 02-19-2023 take 1 tablet by sharmin th every six hours as needed Hydrocodone-Acetaminophen Active 1 TABLE T PO EVERY 6 HOURS NEEDED 10 February 19, 2023 amoxicillin 875 mg / clavulanate 125 mg oral tablet (4 sources) Penicillin-class Antibacterial Start: 11-10-2024 End: 11-17-2024 take 1 tablet by mouth twice daily amoxicillin-clavulanate potassium (AUGMENTIN) 875-125 mg per tablet Indications: Bacterial pneumonia Take 1 tablet by mouth two times a day for 7 days. 14 tablet 11/10/2024 11/17/2024 Active Start: 02-19-2023 take 875 mg by mouth every twelve hours Amoxicillin-Pot Clavulanate Active 875 MG PO Q12H February 19, 2023 12:00am biotin 10 mg oral capsule (20 sources) Start: 08-21-2022 take 55936 ug by mouth once daily Biotin Active 60009 MCG PO DAILY August 21, 2022 5:11pm Start: 04-18-2022 End: 08-21-2022 take 1 ug by mouth once daily Biotin Discontinued MCG PO DAILY April 18, 2022 12:00am August 21, 2022 5:11pm Biotin 10,000 mc g cap Take 10,000 mcg by mouth once daily. With Keratin 100 MG Active Comment on above: Take 10,000 mcg by m outh once daily. Take 10,000 mcg by m outh once daily. With Keratin 100 MG cephalexin 500 mg oral capsule (6 sources) Cephalosporin Antibacterial Start: 3 End: 3 take 1 capsule by mouth four times daily cephALEXin (KEFLEX) 500 mg capsule Take 1 capsule by mouth four times daily for 10 days. 40 capsule 0 02/16/2023 02/26/2023 Active Start: 10-15-2021 End: 10-29-2021 take 1 capsule by mouth four times daily cephALEXin (KEFLEX) 500 mg capsule Indications: Cellulitis of right eyelid Take 1 capsule by mouth four times daily for 14 days. 56 capsule 0 10/15/2021 10/29/2021 Start: 08-22-2021 End: 11-15-2021 take 500 mg by mouth every twelve hours Cephalexin Discontinued 500 MG PO EVERY 12 HOURS August 22, 2021 1:00am November 15, 2021 4:49pm Comment on above: Take 1 capsule by mo [facility] four times daily for 14 days. Take 1 capsule by mo [facility] four times daily for 10 days. clopidogrel 75 mg oral tablet (20 sources) P2Y12 Platelet Inhibitor Start: 9 End: 4 take 1 tablet by mouth once daily clopidogrel (PLAVIX) 75 mg tablet Take 1 tablet by mouth once daily. 90 tablet 3 07/25/2024 Active Comment on above: Take 1 tablet by [facility] once daily. COMPOUNDED PRESCRIPTION (20 sources) Start: 7 COMPOUNDED PRESCRIPTION Indications: Diabetes mellitus type 2 with neurological manifestations (HCC) Diabetic shoes with insoles. DX E11.65, E11,49 1 Each 08/10/2017 Active Start: 08-10-2017 COMPOUNDED PRE SCRIPTION Indications: Diabetes mellitus type 2 with neurological manifestations (HCC) Diabetic shoes with insoles. DX E11.65, E11,49 1 Each 0 08/10/2017 Active Start: 11-27-2014 COMPOUNDED PRE SCRIPTION Indications: Left knee DJD Hinged knee brace for left knee--Don Janine OA Reaction Web Knee brace. Dx Knee pain and decreased mobility secondary to degenerative arthritis 715.96 1 Each 1 11/27/2014 Active Comment on above: Hinged knee brace fo r left knee--Don Janine OA Reaction Web Knee brace. Dx Knee pain and decreased mobility secondary to degenerative arthritis 715.96 Diabetic shoes with insoles. DX E11.65, E11,49 doxycycline monohydrate 100 mg oral tablet (3 sources) Tetracycline-class Drug Start: 5 End: 5 take 1 tablet by mouth twice daily doxycycline monohydrate 100 mg tablet Indications: Bacterial pneumonia Take 1 tablet by mouth two times a day for 7 days. 14 tablet 11/10/2024 11/17/2024 Active estradiol 0.1 mg/ml vaginal cream (20 sources) Estrogen Start: 3 estradiol (ESTRACE) 0.01 % (0.1 mg/gram) vaginal cream Indications: Recurrent UTI Use 1 g vaginally two times a week. Apply before bed. Apply a pea-sized amount of cream to the vagina/vulva. 42.5 g 1 04/21/2023 Active Comment on above: Use 1 g vaginally tw o times a week. Apply before bed. Apply a pea-sized amount of cream to the vagina/vulva. FLUoxetine 40 mg oral capsule (20 sources) Serotonin Reuptake Inhibitor Start: 4 End: 4 take 1 capsule by mouth once daily FLUoxetine (PROZAC) 40 mg capsule Indications: Panic disorder without agoraphobia Take 1 capsule by mouth once daily. 90 capsule 3 07/25/2024 Active Start: 07-06-2021 End: 07-10-2021 take 40 mg by mouth once daily Fluoxetine Discontinued 40 MG PO DAILY 0 July 06, 2021 12:00am July 10, 2021 5:48pm Start: 12-27-2018 End: 11-11-2022 take 1 capsule by mouth once daily FLUoxetine (PROZAC) 40 mg capsule Indications: Panic disorder without agoraphobia Take 1 capsule by mouth once daily. 90 capsule 3 11/11/2022 Active Comment on above: Take 1 capsule by [facility] once daily. 3 ml insulin glargine 100 unt/ml pen injector (20 sources) Insulin Analog Start: 5 inject 40 [IU] by subcutaneous injection once daily at bedtime insulin glargine 100 unit/mL (3 mL) Indications: Type 2 diabetes mellitus with other specified complication, with long-term current use of insulin (HCC) Inject 40 Units subcutaneously daily at bedtime. Patient assistance medication 45 mL 2 11/14/2024 Active Start: 12-23-2023 End: 11-14-2024 inject 36 [IU] by subcutaneous injection once daily at bedtime insulin glargine 100 unit/mL (3 mL) Indications: Type 2 diabetes mellitus with other specified complication, with long-term current use of insulin (HCC) Inject 36 Units subcutaneously daily at bedtime. Patient assistance medication 45 mL 2 12/23/2023 11/14/2024 Discontinued (Adjust Sig - Block E-Cancel) Start: 10-24-2022 insulin glargi ne (LANTUS SOLOSTAR, BASAGLAR KWIKPEN) 100 unit/mL (3 mL) Indications: Type 2 diabetes mellitus with other specified complication, with long-term current use of insulin (HCC) Inject 33 Units subcutaneously daily at bedtime. Patient assistance medication 30 mL 1 10/24/2022 Active Start: 04-18-2022 Insulin Glargi ne (Lantus Solostar U-100 Insulin) 100 unit/mL (3 mL) insulin pen Active 33 UNIT SC DAILY April 18, 2022 9:41am Start: 12-31-2021 End: 01-25-2024 insulin glargine (LANTUS SAULO OSTAR U-100 INSULIN) 100 unit/mL (3 mL) Indications: Type 2 diabetes mellitus with other specified complication, with long-term current use of insulin (HCC) Inject 33 Units subcutaneously daily at bedtime. Patient Assistance Med 0 12/31/2021 01/25/2024 Discontinued (Duplicate Entry) Start: 07-24-2021 End: 04-18-2022 Insulin Glargine (Lantus Saulo ostar U-100 Insulin) 100 unit/mL (3 mL) insulin pen Discontinued 31 UNIT SC DAILY 0 July 24, 2021 8:44pm April 18, 2022 9:41am Start: 07-06-2021 End: 07-24-2021 Insulin Glargine (Lantus Saulo ostar U-100 Insulin) 100 unit/mL (3 mL) insulin pen Discontinued 15 UNITS SC TWICE A DAY July 10, 2021 5:47pm July 24, 2021 8:44pm Start: 08-16-2020 End: 12-31-2021 insulin glargine (LANTUS SAULO OSTAR U-100 INSULIN) 100 unit/mL (3 mL) Indications: Uncontrolled type 2 diabetes mellitus with hyperglycemia (HCC) Inject 31 Units subcutaneously daily at bedtime. 0 08/16/2020 12/31/2021 Discontinued Start: 12-27-2018 End: 07-06-2021 Insulin Glargine Discontinue d 31 UNIT SC AT BEDTIME December 27, 2018 12:00am July 06, 2021 11:41am Comment on above: Inject 31 Units subc utaneously daily at bedtime. Inject 33 Units subc utaneously daily at bedtime. Patient Assistance Med Inject 33 Units subc utaneously daily at bedtime. Patient assistance medication Inject 36 Units subc utaneously daily at bedtime. Patient assistance medication 3 ml insulin lispro 100 unt/ml pen injector (20 sources) Insulin Analog Start: 12-12-2024 insulin lispro (HUMALOG KWIKPEN INSULIN) 100 unit/mL Indications: Type 2 diabetes mellitus with other specified complication, with long-term current use of insulin (HCC) Take 6 units before meals if pre-meal BG >150 mg/dL. Patient assistance medication 12/12/2024 Active Start: 10-03-2024 End: 12-12-2024 insulin lispro (HUMALOG KWIK PEN INSULIN) 100 unit/mL Indications: Type 2 diabetes mellitus with other specified complication, with long-term current use of insulin (HCC) Take 6-10 units before meals if pre-meal BG >150 mg/dL. Patient assistance medication 10/03/2024 12/12/2024 Discontinued (Adjust Sig - Block E-Cancel) Start: 06-13-2024 End: 10-03-2024 inject 2 [IU] by subcutaneous injection once daily at breakfast, then inject 4 [IU] by subcutaneous injection once daily at lunch, then inject 2 [IU] by subcutaneous injection once daily at dinner insulin lispro (HUMALOG KWIKPEN INSULIN) 100 unit/mL Indications: Type 2 diabetes mellitus with other specified complication, with long-term current use of insulin (HCC) Inject 2 Units subcutaneously daily with breakfast AND 4 Units daily with lunch AND 2 Units daily with dinner. Patient assistance medication. 30 mL 1 06/13/2024 10/03/2024 Discontinued (Adjust Sig - Block E-Cancel) Start: 10-24-2022 End: 06-13-2024 inject 6 [IU] by subcutaneous injection once daily at breakfast, then inject 4 [IU] by subcutaneous injection once daily at lunch, then inject 6 [IU] by subcutaneous injection once daily at dinner insulin lispro (HUMALOG KWIKPEN INSULIN) 100 unit/mL Indications: Type 2 diabetes mellitus with other specified complication, with long-term current use of insulin (HCC) Inject 6 Units subcutaneously daily with breakfast AND 4 Units daily with lunch AND 6 Units daily with dinner. Patient assistance medication. 30 mL 1 01/25/2024 06/13/2024 Discontinued (Adjust Sig - Block E-Cancel) Start: 07-04-2022 End: 10-22-2022 inject 6 [IU] by subcutaneous injection once daily at breakfast, then inject 6 [IU] by subcutaneous injection once daily at dinner insulin lispro (HUMALOG KWIKPEN INSULIN) 100 unit/mL Indications: Type 2 diabetes mellitus with other specified complication, with long-term current use of insulin (HCC) Inject 6 Units subcutaneously daily with breakfast AND 6 Units daily with dinner. 0 07/11/2022 10/22/2022 Discontinued Comment on above: Inject 6 Units subcu taneously daily with dinner. Please apply one time free coucher : RXBIN#[id number] PCN#[id number] GROUP#[id number] IDENTIFICATION#[id number] Inject 6 Units subcu taneously daily with breakfast AND 6 Units daily with dinner. Inject 6 Units subcu taneously daily with breakfast AND 6 Units daily with dinner. Patient assistance medication. L. acidophilus/Bifid . animalis (DAILY PROBIOTIC ORAL) (20 sources) take 1 capsule by mouth once daily L. acidophilus/Bifid . animalis (DAILY PROBIOTIC ORAL) Take 1 capsule by mouth once daily. Active take 1 capsule by mouth once raymond ly L. acidophilus/Bifid. animalis (DAILY PROBIOTIC ORAL) Take 1 capsule by mouth once daily. 0 Active Comment on above: Take 1 capsule by [facility] once daily. 24 hr metFORMIN hydrochloride 500 mg extended release oral tablet (20 sources) Biguanide Start: 4 End: 4 take 2 tablets by mouth twice daily at mealtime metFORMIN ER (GLUCOPHAGE XR) 500 mg 24 hr tablet Indications: Type 2 diabetes mellitus with other specified complication, with long-term current use of insulin (HCC) Take 2 tablets by mouth two times a day with meals. 360 tablet 3 07/25/2024 Active Start: 05-23-2021 take 2 tablets by mo ut twice daily at mealtime metFORMIN ER (GLUCOPHAGE XR) 500 mg 24 hr tablet Take 2 tablets by mouth twice daily with meals. 360 tablet 3 04/29/2022 Active Start: 05-23-2021 End: 04-29-2022 take 500 mg by mouth twice daily at mealtime Metformin Discontinued 500 MG PO TWICE DAILY WITH MEALS July 06, 2021 12:00am July 10, 2021 5:48pm Comment on above: Take 2 tablets by mo uth twice daily with meals. Take 2 tablets by mo uth two times a day with meals. metoprolol tartrate 50 mg oral tablet (20 sources) beta-Adrenergic Shane Start: 09-09-2023 End: 07-25-2024 take 1 tablet by mouth twice daily metoprolol tartrate, short acting, (LOPRESSOR) 50 mg tablet Indications: PAF (paroxysmal atrial fibrillation) (HCC) Take 1 tablet by mouth two times a day. 180 tablet 3 07/25/2024 Active Start: 07-06-2021 End: 10-06-2022 take 1 tablet by mouth twice daily metoprolol tartrate, short acting, (LOPRESSOR) 50 mg tablet Take 1 tablet by mouth twice daily. 180 tablet 3 10/06/2022 Active Comment on above: Take 1 tablet by sharmin twice daily. Take 1 tablet by sharmin th two times a day. metroNIDAZOLE 500 mg oral tablet (1 source) Nitroimidazole Antimicrobial Start: take 500 mg by mouth every eight hours Metronidazole Active 500 MG PO Q8H February 19, 2023 12:00am nitrofurantoin, macrocrystals 25 mg / nitrofurantoin, monohydrate 75 mg oral capsule (2 sources) Nitrofuran Antibacterial Start: End: take 1 capsule by mouth twice daily nitrofurantoin monohydrate and macrocrystal (MACROBID) 100 mg capsule Indications: Recurrent UTI Take 1 capsule by mouth twice daily. 60 capsule 0 12/10/2022 01/09/2023 Active Start: 11-17-2022 End: 11-24-2022 take 1 capsule by mouth twice daily at mealtime nitrofurantoin monohydrate and macrocrystal (MACROBID) 100 mg capsule Take 1 capsule by mouth twice daily with meals for 7 days. 14 capsule 0 11/17/2022 11/24/2022 Active Comment on above: Take 1 capsule by mo [facility] twice daily with meals for 7 days. Take 1 capsule by mo [facility] twice daily. polysaccharide iron complex 150 mg oral capsule (20 sources) Start: 09-09-2023 End: 07-25-2024 take 1 capsule by mouth once daily IFEREX 150 150 mg iron capsule Take 1 capsule by mouth once daily. 90 capsule 3 07/25/2024 Active Start: 08-15-2021 End: 08-04-2022 take 1 capsule by mouth once daily IFEREX 150 150 mg iron capsule Take 1 capsule by mouth once daily. 90 capsule 3 08/04/2022 Active Comment on above: Take 1 capsule by mo [facility] once daily. rosuvastatin calcium 5 mg oral tablet (20 sources) HMG-CoA Reductase Inhibitor Start: End: take 1 tablet by mouth once daily at bedtime rosuvastatin (CRESTOR) 5 mg tablet Indications: Mixed hyperlipidemia Take 1 tablet by mouth daily at bedtime. 90 tablet 3 07/25/2024 Active Start: 11-27-2020 End: 10-06-2022 take 1 tablet by mouth once daily at bedtime rosuvastatin (CRESTOR) 5 mg tablet Indications: Mixed hyperlipidemia Take 1 tablet by mouth daily at bedtime. 90 tablet 3 10/06/2022 Active Comment on above: Take 1 tablet by [facility] daily at bedtime. semaglutide (OZEMPIC) 0.25 mg or 0.5 mg (2 mg/3 mL) pen (20 sources) Start: 04-05-2025 semaglutide (OZEMPIC) 0.25 mg or 0.5 mg (2 mg/3 mL) pen Indications: Type 2 diabetes mellitus with hyperglycemia, without long-term current use of insulin (HCC) Inject 0.25 mg subcutaneously one time a week. Do not send to the pharmacy - receives through patient assistance program. Managed by [facility] pharmacy team - any order changes, route to RX [facility] 04/05/2025 Active Start: 06-13-2024 End: 04-05-2025 semaglutide (OZEMPIC) 0.25 m g or 0.5 mg (2 mg/3 mL) pen Indications: Type 2 diabetes mellitus with hyperglycemia, without long-term current use of insulin (HCC) Take 0.25mg weekly for 4 weeks then take 0.5mg weekly thereafter. Gets through [employer]. 06/13/2024 04/05/2025 Discontinued (Adjust Sig - Block E-Cancel) Start: 06-13-2024 semaglutide (O ZEMPIC) 0.25 mg or 0.5 mg (2 mg/3 mL) pen Indications: Type 2 diabetes mellitus with hyperglycemia, without long-term current use of insulin (HCC) Take 0.25mg weekly for 4 weeks then take 0.5mg weekly thereafter. Gets through [employer]. 06/13/2024 Active Start: 12-23-2023 End: 01-25-2024 semaglutide (OZEMPIC) 0.25 m g or 0.5 mg (2 mg/3 mL) pen Inject 0.25mg weekly for 4 weeks, then increase dose to 0.5mg weekly thereafter. 3 mL 5 12/23/2023 01/25/2024 Discontinued (Duplicate Entry) Start: 12-23-2023 semaglutide (O ZEMPIC) 0.25 mg or 0.5 mg (2 mg/3 mL) pen Inject 0.25mg weekly for 4 weeks, then increase dose to 0.5mg weekly thereafter. 3 mL 5 12/23/2023 Active Start: 11-25-2023 End: 06-13-2024 semaglutide (OZEMPIC) 0.25 m g or 0.5 mg (2 mg/3 mL) pen Indications: Type 2 diabetes mellitus with hyperglycemia, without long-term current use of insulin (HCC) Take 0.25mg weekly for 4 weeks then take 0.5mg weekly thereafter. NOT TAKING as of 3.20.24 --> started application through [employer]. 11/25/2023 06/13/2024 Discontinued (Adjust Sig - Block E-Cancel) Start: 11-25-2023 semaglutide (O ZEMPIC) 0.25 mg or 0.5 mg (2 mg/3 mL) pen Indications: Type 2 diabetes mellitus with hyperglycemia, without long-term current use of insulin (HCC) Take 0.25mg weekly for 4 weeks then take 0.5mg weekly thereafter. NOT TAKING as of 3.20.24 --> started application through [employer]. 11/25/2023 Active Start: 11-25-2023 semaglutide (O ZEMPIC) 0.25 mg or 0.5 mg (2 mg/3 mL) pen Indications: Type 2 diabetes mellitus with hyperglycemia, without long-term current use of insulin ([facility]) Take 0.25mg weekly for 4 weeks then take 0.5mg weekly thereafter. NOT TAKING as of 3.20.24 --> started application through [employer]. 0 11/25/2023 Active Comment on above: Take 0.25mg weekly f or 4 weeks then take 0.5mg weekly thereafter. NOT TAKING as of 3.20.24 --> started application through [employer]. Inject 0.25mg weekly for 4 weeks, then increase dose to 0.5mg weekly thereafter. warfarin sodium 2.5 mg oral tablet (20 sources) Vitamin K Antagonist Start: 09-09-2023 End: 07-25-2024 warfarin (COUMADIN) 2.5 mg tablet Indications: PAF (paroxysmal atrial fibrillation) (HCC) , Anticoagulated on Coumadin Start with 2.5 mg daily except 1.25mg Thurs 90 tablet 3 07/25/2024 Active Start: 08-15-2021 End: 04-16-2023 warfarin (COUMADIN) 2.5 mg t ablet Indications: PAF (paroxysmal atrial fibrillation) (HCC) , Anticoagulated on Coumadin Start with 2.5 mg daily. Will titrate dose as indicated 90 tablet 3 04/16/2023 Active Comment on above: Start with 2.5 mg da didier. Will titrate dose as indicated Start with 2.5 mg da didier except 1.25mg Thurs Completed/Discontinued Medications Medication Drug Class(es) Dates Sig (Normalized) Sig (Original) acetaminophen 325 mg oral tablet (6 sources) Start: 07-06-2021 End: 07-24-2021 take 2 tablets by mouth every six hours as needed Acetaminophen (Tylenol) 325 mg tablet Discontinued 650 MG PO EVERY 6 HOURS NEEDED July 10, 2021 5:47pm July 24, 2021 8:41pm apixaban 5 mg oral tablet (9 sources) Factor Xa Inhibitor Start: 07-06-2021 End: 08-15-2021 take 1 tablet by mouth twice daily Apixaban (Eliquis) 5 mg tablet Discontinued 5 MG PO TWICE A DAY July 24, 2021 8:44pm August 15, 2021 4:38pm aspirin 81 mg delayed release oral tablet (9 sources) Platelet Aggregation Inhibitor, Nonsteroidal Anti-inflammatory Drug Start: 07-06-2021 End: 07-24-2021 take 81 mg by mouth once daily Aspirin Discontinued 81 MG PO DAILY July 10, 2021 5:47pm July 24, 2021 8:40pm Start: 12-27-2018 End: 06-29-2021 take 81 mg by mouth once daily Aspirin Discontinued 81 MG PO DAILY December 27, 2018 12:00am June 29, 2021 11:35am atenolol 50 mg oral tablet (9 sources) beta-Adrenergic Shane Start: 08-15-2021 End: 08-15-2021 take 50 mg by mouth twice daily Atenolol Discontinued 50 MG PO TWICE A DAY August 15, 2021 1:00am August 15, 2021 5:28pm Start: 04-08-2019 End: 06-29-2021 take 50 mg by mouth twice daily Atenolol Discontinued 50 MG PO TWICE A DAY April 08, 2019 3:53pm June 29, 2021 11:35am Start: 12-27-2018 End: 04-08-2019 take 50 mg by mouth once daily Atenolol Discontinued 5 0 MG PO DAILY December 27, 2018 12:00am April 08, 2019 3:53pm atorvastatin 10 mg oral tablet (20 sources) HMG-CoA Reductase Inhibitor Start: 07-06-2021 End: 06-06-2022 take 10 mg by mouth at bedtime Atorvastatin Discontinued 10 MG PO AT BEDTIME July 10, 2021 5:47pm July 24, 2021 8:44pm Comment on above: Take 1 tablet by sharmin th daily at bedtime. busPIRone hydrochloride 10 mg oral tablet (3 sources) Start: 12-27-2018 End: 01-19-2019 take 10 mg by mouth twice daily Buspirone Discontinued 10 MG PO TWICE A DAY December 27, 2018 12:00am January 19, 2019 3:04pm estrogens, conjugated (half-way) 0.625 mg/ml vaginal cream (1 source) Estrogen Start: 04-20-2023 conjugated estrogens (PREMARIN) vaginal cream Indications: Recurrent UTI Use 0.5 g vaginally three times a week. Apply a pea sized amount to the vaginal labia Thu/Thu/Thu 30 g 1 04/20/2023 Active Comment on above: Use 0.5 g vaginally three times a week. Apply a pea sized amount to the vaginal labia Thu/Thu/Thu furosemide 40 mg oral tablet (12 sources) Loop Diuretic Start: 05-04-2019 End: 07-24-2021 take 40 mg by mouth twice daily Furosemide Discontinued 40 MG PO TWICE DAILY July 10, 2021 5:47pm July 24, 2021 8:40pm Start: 01-01-2019 End: 05-04-2019 take 40 mg by mouth once daily Furosemide Discontinued 40 MG PO DAILY January 01, 2019 12:00am May 04, 2019 9:12am hydroCHLOROthiazide 25 mg oral tablet (3 sources) Thiazide Diuretic Start: 12-27-2018 End: 01-01-2019 take 25 mg by mouth once daily Hydrochlorothiazide Discontinued 25 MG PO DAILY December 27, 2018 12:00am January 01, 2019 11:34am ibuprofen 800 mg oral tablet (3 sources) Nonsteroidal Anti-inflammator y Drug Start: 06-25-2021 End: 06-29-2021 take 800 mg by mouth every eight hours Ibuprofen Discontinued 800 MG PO Q8H June 25, 2021 12:00am June 29, 2021 11:39am lisinopril 5 mg oral tablet (9 sources) Angiotensin Converting Enzyme Inhibitor Start: 12-27-2018 End: 07-24-2021 take 5 mg by mouth once daily Lisinopril Discontinued 5 MG PO DAILY July 10, 2021 5:47pm July 24, 2021 8:41pm 24 hr mirabegron 25 mg extended release oral tablet (3 sources) beta3-Adrenergic Agonist Start: 04-20-2023 End: 07-19-2023 take 1 tablet by mouth once daily mirabegron (MYRBETRIQ) 25 mg Tb24 Indications: OAB (overactive bladder) Take 1 tablet by mouth once daily. 30 tablet 2 04/20/2023 05/18/2023 Discontinued (Cost of medication) Comment on above: Take 1 tablet by sharmin th once daily. naproxen 500 mg oral tablet (3 sources) Nonsteroidal Anti-inflammator y Drug Start: 12-27-2018 End: 01-01-2019 take 1 tablet by mouth twice daily Naproxen (Naprosyn) 500 MG tablet Discontinued 500 MG PO TWICE A DAY December 27, 2018 12:00am January 01, 2019 11:31am microencapsulated potassium chloride 20 meq extended release oral tablet (20 sources) Start: 09-09-2023 End: 01-25-2024 take 2 tablets by mouth twice daily potassium chloride ER (KLOR-CON) 20 mEq tablet Take 2 tablets by mouth two times a day. 360 tablet 3 09/09/2023 01/25/2024 Discontinued Start: 08-20-2021 End: 10-06-2022 take 2 tablets by mouth twice daily potassium chloride ER (K-DUR, KLOR-CON) 20 mEq tablet Take 2 tablets by mouth twice daily. 360 tablet 3 10/06/2022 Active Start: 07-06-2021 End: 07-24-2021 take 40 mEq by mouth twice daily Potassium Chloride Discontinued 40 MEQ PO TWICE A DAY July 10, 2021 5:47pm July 24, 2021 8:44pm Comment on above: Take 2 tablets by mo ut twice daily. Take 2 tablets by mo ut two times a day. pravastatin sodium 40 mg oral tablet (3 sources) HMG-CoA Reductase Inhibitor Start: 12-28-19 End: 01-20-20 take 40 mg by mouth at bedtime Pravastatin Discontinued 40 MG PO AT BEDTIME December 27, 2018 12:00am January 19, 2019 3:04pm propranolol hydrochloride 40 mg oral tablet (3 sources) beta-Adrenergic Shane Start: 12-28-19 End: 01-20-20 take 20-40 mg by mouth three times daily as needed Propranolol Discontinued 20 - 40 MG PO 3 TIMES DAILY NEEDED December 27, 2018 12:00am January 19, 2019 3:04pm 0.25 mg, 0.5 mg dose 1.5 ml semaglutide 1.34 mg/ml pen injector (18 sources) Start: 01-24-20 End: 07-04-20 semaglutide (OZEMPIC) 0.25 mg or 0.5 mg(2 mg/1.5 mL) pen injector Indications: Type 2 diabetes mellitus with other specified complication, with long-term current use of insulin (HCC) Inject 0.25 mg subcutaneously one time a week. 1.5 mL 1 01/23/2022 07/04/2022 Discontinued (Patient chooses alternative therapy) Comment on above: Inject 0.25 mg subcu taneously one time a week. traZODone hydrochloride 100 mg oral tablet (3 sources) Serotonin Reuptake Inhibitor Start: 12-28-19 End: 01-20-20 take 100 mg by mouth at bedtime Trazodone Discontinued 100 MG PO AT BEDTIME December 27, 2018 12:00am January 19, 2019 3:04pm Problems Active Problems Problem Classification Problem Date Documented Date Episodic/Chronic Abdominal pain (3 sources) Right lower quadrant pain; Translations: [Right lower quadrant pain] 07-14-2021 Episodic Acute and unspecified renal failure (3 sources) Injury of kidney; Translations: [Acute kidney failure, unspecified] 08-04-2021 Episodic Anxiety disorders (20 sources) Panic disorder without agoraphobia; Translations: [Panic disorder [episodic paroxysmal anxiety]] Onset: 07-21-2008 07-21-2008 Chronic Cardiac dysrhythmias (20 sources) Paroxysmal atrial fibrillation; Translations: [Paroxysmal atrial fibrillation] Onset: 11-01-2021 11-01-2021 Chronic Coagulation and hemorrhagic disorders (2 sources) Blood coagulation disorder; Translations: [Hemorrhagic disorder due to extrinsic circulating anticoagulants] 09-04-2022 Chronic Congestive heart failure; nonhypertensive (3 sources) Chronic diastolic heart failure; Translations: [Chronic diastolic (congestive) heart failure] 08-04-2021 Chronic Coronary atherosclerosis and other heart disease (16 sources) Coronary arteriosclerosis; Translations: [Atherosclerotic heart disease of mechoopda coronary artery without angina pectoris] Chronic Diabetes mellitus with complications (20 sources) Type II diabetes mellitus uncontrolled; Translations: [Type II diabetes mellitus, uncontrolled] Onset: 10-30-2014 06-18-2015 Chronic Diabetes mellitus without complication (6 sources) Diabetes mellitus; Translations: [Type 2 diabetes mellitus without complications] 08-20-2022 Chronic Disorders of lipid metabolism (20 sources) Hyperlipidemia; Translations: [Hyperlipidemia, unspecified] Onset: 06-18-2015 06-18-2015 Chronic Diverticulosis and diverticulitis (1 source) Diverticulitis of cecum; Translations: [Diverticulitis of large intestine without perforation or abscess without bleeding] 02-19-2023 Chronic Esophageal disorders (20 sources) Gastroesophageal reflux disease; Translations: [Gastro-esophageal reflux disease without esophagitis] Onset: 04-05-2012 04-05-2012 Chronic Essential hypertension (20 sources) Benign hypertension; Translations: [Essential (primary) hypertension] Onset: 06-24-2025 06-18-2015 Chronic Fluid and electrolyte disorders (10 sources) Hypokalemia; Translations: [Hypokalemia] Episodic Genitourinary symptoms and ill-defined conditions (1 source) Incontinence; Translations: [Mixed incontinence] 04-20-2023 Chronic Genitourinary symptoms and ill-defined conditions (20 sources) Increased frequency of urination; Translations: [Frequency of micturition] 10-15-2006 Episodic Immunizations and screening for infectious disease (3 sources) Needs influenza immunization; Translations: [Encounter for immunization] Onset: 06-24-2025 Episodic Inflammation; infection of eye (except that caused by tuberculosis or sexually transmitteddisease) (1 source) Cellulitis of right eyelid; Translations: [Abscess of eyelid right eye, unspecified eyelid] Episodic Malaise and fatigue (3 sources) Asthenia; Translations: [Other malaise] 08-04-2021 Episodic Mood disorders (20 sources) Depressive disorder; Translations: [Depression] Onset: 05-18-2023 07-10-2021 Chronic Nonspecific chest pain (3 sources) Chest pain; Translations: [Chest pain, unspecified] 05-04-2019 Episodic Open wounds of head; neck; and trunk (2 sources) Facial laceration ; Translations: [Laceration without foreign body of other part of head, initial encounter] 09-04-2022 Episodic Other aftercare (6 sources) Anticoagulant effect; Translations: [half-way (current) use of anticoagulants] Episodic Other aftercare (1 source) Long-term current use of drug therapy; Translations: [Other assisted (current) drug therapy] 01-09-2025 Episodic Other aftercare (2 sources) 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; Translations: [Anticoagulated on Coumadin] Onset: 11-05-2024 Episodic Other circulatory disease (6 sources) Low blood pressure; Translations: [Hypotension, unspecified] 08-20-2022 Episodic Other diseases of bladder and urethra (1 source) Hypertrophy of bladder; Translations: [Other specified disorders of bladder] 04-20-2023 Chronic Other diseases of bladder and urethra (1 source) Overactive bladder; Translations: [Overactive bladder] 04-20-2023 Chronic Other diseases of kidney and ureters (3 sources) Acute renal insufficiency; Translations: [Disorder of kidney and ureter, unspecified] 08-20-2022 Episodic Other diseases of veins and lymphatics (1 source) Disorder of vein of lower extremity; Translations: [Venous insufficiency (chronic) (peripheral)] 07-25-2024 Episodic Other injuries and conditions due to external causes (2 sources) Closed injury of head; Translations: [Unspecified injury of head, initial encounter] 09-04-2022 Episodic Other liver diseases (4 sources) Steatosis of liver; Translations: [Fatty (change of) liver, not elsewhere classified] 10-24-2024 Chronic Other liver diseases (2 sources) Fatty (change of) liver, not elsewhere classified; Translations: [Fatty (change of) liver, not elsewhere classified] Onset: 01-04-2025 Chronic Other lower respiratory disease (3 sources) Dyspnea; Translations: [Dyspnea, unspecified] 01-26-2019 Episodic Other lower respiratory disease (3 sources) Hypoxia; Translations: [Hypoxemia] 08-04-2021 Episodic Other lower respiratory disease (2 sources) Cough; Translations: [Acute cough] 11-10-2024 Episodic Other nervous system disorders (3 sources) Metabolic encephalopathy; Translations: [Metabolic encephalopathy] 08-04-2021 Chronic Other nutritional; endocrine; and metabolic disorders (20 sources) Body mass index 40+ - severely obese; Translations: [Morbid (severe) obesity due to excess calories] 05-29-2014 Chronic Other nutritional; endocrine; and metabolic disorders (2 sources) Severe obesity; Translations: [Morbid (severe) obesity due to excess calories] Chronic Other nutritional; endocrine; and metabolic disorders (1 source) Body mass index (BMI) 40.0-44.9, adult; Translations: [Class 3 severe obesity due to excess calories with body mass index (BMI) of 40.0 to 44.9 in adult, unspecified whether serious comorbidity present (HCC)] Onset: 06-24-2025 Chronic Other screening for suspected conditions (not mental disorders or infectious disease) (16 sources) Patient encounter status; Translations: [Encounter for screening for malignant neoplasm of colon] Onset: 01-09-2025 Episodic Other skin disorders (3 sources) Dystrophia unguium; Translations: [Nail dystrophy] 08-20-2022 Episodic Pneumonia (except that caused by tuberculosis or sexually transmitted disease) (1 source) Bacterial pneumonia; Translations: [Unspecified bacterial pneumonia] 11-10-2024 Episodic Residual codes; unclassified (3 sources) Altered mental status; Translations: [Altered mental status, unspecified] 08-20-2022 Episodic Residual codes; unclassified (2 sources) Menopause present; Translations: [Asymptomatic menopausal state] Episodic Residual codes; unclassified (2 sources) Bilateral lower limb edema; Translations: [Localized edema] Episodic Residual codes; unclassified (1 source) Localized edema; Translations: [Bilateral lower extremity edema] Onset: 06-24-2025 Episodic Respiratory failure; insufficiency; arrest (adult) (3 sources) Chronic hypoxemic respiratory failure; Translations: [Chronic respiratory failure with hypoxia] 08-20-2022 Chronic Respiratory failure; insufficiency; arrest (adult) (3 sources) Acute respiratory failure; Translations: [Acute respiratory failure with hypoxia] 07-01-2021 Episodic Superficial injury; contusion (2 sources) Contusion of face; Translations: [Contusion of other part of head, initial encounter] 09-04-2022 Episodic Unclassified (6 sources) Type 2 diabetes mellitus without complication; Translations: [Diabetes mellitus type 2, uncontrolled, without complications] Onset: 10-30-2014 09-18-2015 Unclassified (1 source) Patient encounter status 01-10-2025 Unclassified (1 source) Class 3 severe obesity due to excess calories with body mass index (BMI) of 40.0 to 44.9 in adult, unspecified whether serious comorbidity present (HCC); Translations: [Class 3 severe obesity due to excess calories with body mass index (BMI) of 40.0 to 44.9 in adult, unspecified whether serious comorbidity present (HCC)] Onset: 06-24-2025 Unclassified (1 source) Acute cough; Translations: [Acute cough] Onset: 11-10-2024 Urinary tract infections (8 sources) Cystitis; Translations: [Cystitis, unspecified without hematuria] Episodic Viral infection (9 sources) COVID-19; Translations: [Pneumonia due to COVID-19 virus] 08-20-2022 Episodic Past or Other Problems Problem Classification Problem Date Documented Da te Episodic/Chronic Cardiac dysrhythmias (20 sources) Palpitations; Translations: [Palpitations] Onset: 04-05-2012 04-05-2012 Episodic Coronary atherosclerosis and other heart disease (5 sources) Stented coronary artery; Translations: [Presence of coronary angioplasty implant and graft] Onset: 12-06-2018 Episodic E Codes: Fall (4 sources) Fall on same level from slipping, tripping or stumbling ; Translations: [Fall on same level from slipping, tripping and stumbling without subsequent striking against object, initial encounter] Onset: 07-25-2024 09-04-2022 Episodic Other aftercare (20 sources) Long-term current use of anticoagulant; Translations: [half-way (current) use of anticoagulants] Onset: 06-21-2022 Episodic Other aftercare (1 source) Other assisted (current) drug therapy; Translations: [Encounter for long-term current use of medication] Onset: 01-09-2025 Episodic Other aftercare (1 source) terminal makeup operator (current) use of insulin; Translations: [Type 2 diabetes mellitus with other specified complication, with long-term current use of insulin (HCC)] Onset: 11-14-2024 Episodic Other diseases of veins and lymphatics (1 source) Venous insufficiency (chronic) (peripheral); Translations: [Stasis dermatitis of both legs] Onset: 07-25-2024 Episodic Other injuries and conditions due to external causes (1 source) Encounter for examination and observation following other accident; Translations: [Encounter for examination and observation following other accident] Onset: 07-29-2024 Episodic Other liver diseases (1 source) Abnormal levels of other serum enzymes; Translations: [Elevated alkaline phosphatase level] Onset: 09-24-2024 Episodic Results Test Name Value Interpretation Reference Range [facility] WENDY FORTE ([id number]) 1955 F Date Time Provider Department 07/10/25 JW ROBERTS During your visit today, we recorded the following information about you: Jw Roberts RPh 07/10/2025 11:30 AM Signed [facility] Ambulatory Pharmacy Anticoagulation Clinic Anticoagulation Episode Summary Anticoagulation Care Providers Provider Role Specialty Phone number Estephania Rodriguez MD Referring Internal Medicine [phone] Wendy Forte is a 70 year old year old female patient being evaluated today for a Telemanagement visit. Patient is currently on the following anticoagulant(s) Warfarin. Labs PT INR (no units) Date Value 07/10/2024 2.5 12/13/2021 2.2 11/01/2021 2.2 INR (no units) Date Value 07/08/2025 2.2 06/10/2025 2.7 05/05/2025 1.9 CrCl cannot be calculated (Unknown ideal weight.). 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: Anticoagulation Episode Summary Current INR goal: 2.0-3.0 Assessment: INR result of 2.2 is therapeutic Plan: Current Warfarin Dosing As of 07/10/2025 Full warfarin instructions: 2.5 mg every day Called and spoke to patient/caregiver Advised patient to continue current weekly dose as noted above Next INR check due on 08/14/2025 Patient verbalizes understanding of the plan. Jw Roberts RPh Clinical Pharmacist, Pharmacy Anticoagulation Clinic Pharmacy Anticoagulation Clinic Pager: [phone]. Allergies As of Date: 07/10/2025 Noted Allergy Reaction SULFA (SULFONAMIDE ANTIBIOTICS) 08/28/2006 2 - Rash Comments: BLISTERS Date Reviewed: 06/24/2025 Reviewed by: Tess Huddleston MA - Fully Assessed Reason for Visit: Anticoagulation Telephone Fu [[id number]] Cmt: Lab INR Result Prescriptions as of 07/10/2025 - clopidogrel (PLAVIX) 75 mg tablet Take 1 tablet by mouth once daily. - metoprolol tartrate, short acting, (LOPRESSOR) 50 mg tablet Take 1 tablet by mouth two times a day. - IFEREX 150 150 mg iron capsule Take 1 capsule by mouth once daily. - FLUoxetine (PROZAC) 40 mg capsule Take 1 capsule by mouth once daily. - warfarin (COUMADIN) 2.5 mg tablet Start with 2.5 mg daily, or as directed based on INRs - rosuvastatin (CRESTOR) 5 mg tablet Take 1 tablet by mouth daily at bedtime. - metFORMIN ER (GLUCOPHAGE XR) 500 mg 24 hr tablet Take 2 tablets by mouth two times a day with meals. - semaglutide (OZEMPIC) 0.25 mg or 0.5 mg (2 mg/3 mL) pen Inject 0.25 mg subcutaneously one time a week. Do not send to the pharmacy - receives through patient assistance program. Managed by [facility] pharmacy team - any order changes, route to?[facility] - insulin lispro (HUMALOG KWIKPEN INSULIN) 100 unit/mL Take 6 units before meals if pre-meal BG >150 mg/dL. Patient assistance medication - insulin glargine 100 unit/mL (3 mL) Inject 40 Units subcutaneously daily at bedtime. Patient assistance medication - L. acidophilus/Bifid. animalis (DAILY PROBIOTIC ORAL) Take 1 capsule by mouth once daily. - estradiol (ESTRACE) 0.01 % (0.1 mg/gram) vaginal cream Use 1 g vaginally two times a week. Apply before bed. Apply a pea-sized amount of cream to the vagina/vulva. - Biotin 10,000 mcg cap Take 10,000 mcg by mouth once daily. With Keratin 100 MG - blood sugar diagnostic (FREESTYLE TEST) test strip Check 4 time daily as directed. DX E11.65, Insulin: Yes - Lancets lancets Test blood sugar(s) 4 times daily as directed. Dx: diabetes E11.65. Insulin: Yes - insulin needles, DISPOSABLE, (PEN NEEDLE) 31 gauge x 5/16 ndle Use one needle per dose. One per day. - COMPOUNDED PRESCRIPTION Diabetic shoes with insoles. DX E11.65, E11,49 - COMPOUNDED PRESCRIPTION Hinged knee brace for left knee--Nestor Mehta OA Reaction Web Knee brace. Dx Knee pain and decreased mobility secondary to degenerative arthritis 715.96 - COMPOUNDED PRESCRIPTION ascensia lancets Meds Comments as of 02/21/2013: Problem List As Of Date 07/10/2025 Noted Resolved HTN (hypertension), benign [I10] Hyperlipidemia [E78.5] Type II diabetes mellitus, uncontrolled (HCC) [* URINARY FREQUENCY [R35.0] PANIC DISORDER WITHOUT AGORAPHOBIA [F41.0] 07/21/2008 GERD (gastroesophageal reflux disease) [K21.9] 04/05/2012 Heart palpitations [R00.2] 04/05/2012 Obesity, morbid, BMI 40.0-49.9 (HCC) [E66.01] Type 2 diabetes mellitus with hyperglycemia, wi*10/30/2014 PAF (paroxysmal atrial fibrillation) (HCC) [I48*11/01/2021 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] 06/21/2022 Recurrent major depressive disorder, in full re*05/18/2023 Encounter Status:Closed by JW ROBERTS on 07/10/25 Normal [facility] PT panel Coag (PPP)on 2024 INR Coag (PPP) [Relative time] 2.2 {INR} High 0.9-1.3 [facility] Comment on above: Order Comment: Speci men Type: BLOOD SPECIMENOrdering Facility: [facility] Address: [address] [place] [address] Result Comment: Adela min K Antagonist (VKA) Therapeutic Range: INR 2 to 3 (Target INR of 2.5) Note: For patients treated with VKA drugs, such as warfarin, the [place] [employer] 2012 Guideline recommends a therapeutic INR range of 2 to 3 (target INR of 2.5). This recommendation includes high-risk patients with antiphospholipid syndrome with previous arterial or venous thromboembolism, current-generation mechanical or bioprosthetic aortic heart valve replacement. Note: Patients with mechanical aortic valve replacement and additional risk factors for thromboembolic events (atrial fibrillation, previous thromboembolism, LV dysfunction, hypercoagulable conditions) or an older generation mechanical AVR (i.e., ball in-Cage) or any mechanical MVR should have a INR therapeutic range of 2.5 to 3.5 (target INR of 3). Leroy GH, et al. Chest 2012, 141:7S-47S Sveta RA et al. [facility] 2017, 70: 252-289 Performed By: #### 3 4528-0 ####[facility] LABCLIA [id number] [place] [address] [place] PT Coag (PPP) [Time] 22.0 s High 9.7-13.0 [facility] Comment on above: Order Comment: Speci men Type: BLOOD SPECIMENOrdering Facility: [facility] Address: [address] [place] [address] Performed By: #### 3 4528-0 ####[facility] LABCLIA [id number] [address] [place] CNPNon 06-12-2025 CNPN Telephone ([facility]) WENDY FORTE ([id number]) 1955 F Date Time Provider Department 06/12/25 MARIAM ELLINGTON During your visit today, we recorded the following information about you: Mariam Ellington, [facility] 06/12/2025 8:55 AM Signed [facility] Ambulatory Pharmacy Anticoagulation Clinic Anticoagulation Episode Summary Anticoagulation Care Providers Provider Role Specialty Phone number Estephania Rodriguez MD Referring Internal Medicine [phone] Wendy Forte is a 70 year old year old female patient being evaluated today for a Lab INR. Patient is currently on the following anticoagulant(s) Warfarin. Labs Lab Results Component Value Date INR 2.7 (H) 06/10/2025 INR 1.9 (H) 05/05/2025 INR 1.9 (H) 04/08/2025 Lab Results Component Value Date HB 13.4 06/10/2025 HB 12.9 09/09/2023 HB 11.7 06/10/2023 Lab Results Component Value Date HCT 40.9 06/10/2025 HCT 40.6 09/09/2023 HCT 37.7 06/10/2023 Lab Results Component Value Date PLT 246 06/10/2025 PLT 270 09/09/2023 PLT 257 06/10/2023 Lab Results Component Value Date CREAT 0.74 06/10/2025 CREAT 0.77 09/24/2024 CREAT 0.72 08/19/2024 No components found for: TBILI3 Lab Results Component Value Date ALT 17 06/10/2025 ALT 21 09/24/2024 ALT 27 08/19/2024 Lab Results Component Value Date AST 27 06/10/2025 AST 35 09/24/2024 AST 31 08/19/2024 CrCl cannot be calculated (Unknown ideal weight.). 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 Anticoagulation Episode Summary Current INR goal: 2.0-3.0 Assessment: INR result of 2.7 is therapeutic Plan: Current Warfarin Dosing As of 06/12/2025 Full warfarin instructions: 2.5 mg every day Called and spoke to patient/caregiver Advised patient to continue current weekly dose as noted above Next lab INR check scheduled on 07/08/2025 Patient verbalizes understanding of the plan. Patient denies need for refills. Patient advised to call the PAC with any medication changes, bleeding/bruising concerns, recent changes in vitamin k consumption, if any procedures are coming up, if they have been ill or in the hospital, and if they have missed any doses of warfarin. Mariam Ellington [facility] Clinical Pharmacist, Pharmacy Anticoagulation Clinic Pharmacy Anticoagulation Clinic Pager: [phone]. Allergies As of Date: 06/12/2025 Noted Allergy Reaction SULFA (SULFONAMIDE ANTIBIOTICS) 08/28/2006 2 - Rash Comments: BLISTERS Date Reviewed: 01/09/2025 Reviewed by: Claire Smiley LPN - Fully Assessed Reason for Visit: Anticoagulation Telephone Fu [148] Cmt: Lab INR Primary Visit Diagnosis:PAF (paroxysmal atrial fibrillation) (HCC) [I48.0] Other Visit Diagnosis: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] Prescriptions as of 06/12/2025 - semaglutide (OZEMPIC) 0.25 mg or 0.5 mg (2 mg/3 mL) pen Inject 0.25 mg subcutaneously one time a week. Do not send to the pharmacy - receives through patient assistance program. Managed by [facility] pharmacy team - any order changes, route to?[facility] PATIENT [facility] - insulin lispro (HUMALOG KWIKPEN INSULIN) 100 unit/mL Take 6 units before meals if pre-meal BG >150 mg/dL. Patient assistance medication - insulin glargine 100 unit/mL (3 mL) Inject 40 Units subcutaneously daily at bedtime. Patient assistance medication - clopidogrel (PLAVIX) 75 mg tablet Take 1 tablet by mouth once daily. - FLUoxetine (PROZAC) 40 mg capsule Take 1 capsule by mouth once daily. - IFEREX 150 150 mg iron capsule Take 1 capsule by mouth once daily. - metFORMIN ER (GLUCOPHAGE XR) 500 mg 24 hr tablet Take 2 tablets by mouth two times a day with meals. - metoprolol tartrate, short acting, (LOPRESSOR) 50 mg tablet Take 1 tablet by mouth two times a day. - rosuvastatin (CRESTOR) 5 mg tablet Take 1 tablet by mouth daily at bedtime. - warfarin (COUMADIN) 2.5 mg tablet Start with 2.5 mg daily except 1.25mg Thurs - L. acidophilus/Bifid. animalis (DAILY PROBIOTIC ORAL) Take 1 capsule by mouth once daily. - estradiol (ESTRACE) 0.01 % (0.1 mg/gram) vaginal cream Use 1 g vaginally two times a week. Apply before bed. Apply a pea-sized amount of cream to the vagina/vulva. - Biotin 10,000 mcg cap Take 10,000 mcg by mouth once daily. With Keratin 100 MG - blood sugar diagnostic (FREESTYLE TEST) test strip Check 4 time daily as directed. DX E11.65, Insulin: Yes - Lancets lancets Test blood sugar(s) 4 times daily as directed. Dx: diabetes E11.65. Insulin: Yes - insulin needles, DISPOSABLE, (PEN NEEDLE) 31 gauge x 5/16 ndle Use one needle per dose. One per day. - COMPOUNDED PRESCRIPTION Diabetic shoes with insoles. DX E11.65, E11,49 - COMPOUNDED PRESCRIPTION Hinged (more content not included)... Normal [facility] CBC panel Auto (Bld)on 06-10 Erythrocyte distribution width (RBC) [Ratio] 13.2 % Normal 11.5-15.0 [facility] Comment on above: Order Comment: Speci men Type: BLOOD SPECIMENOrdering Facility: [facility] Address: [address] [place] [address] Performed By: #### 5 8410-2 ####[facility] [id number] [place] [address] [place] Hematocrit (Bld) [Volume fraction] 40.9 % Normal 36.0-46.0 [facility] Comment on above: Order Comment: Speci men Type: BLOOD SPECIMENOrdering Facility: [facility] Address: [address] [place] [address] Performed By: #### 5 8410-2 ####[facility] [id number] [place] [address] [place] Hemoglobin (Bld) [Mass/Vol] 13.4 g/dL Normal 11.5-15.5 [facility] Comment on above: Order Comment: Speci men Type: BLOOD SPECIMENOrdering Facility: [facility] Address: [address] [place] [address] Performed By: #### 5 8410-2 ####[facility] [id number] [place] [address] [place] MCH (RBC) [Entitic mass] 29.8 pg Normal 26.0-34.0 [facility] Comment on above: Order Comment: Speci men Type: BLOOD SPECIMENOrdering Facility: [facility] Address: [address] [place] [address] Performed By: #### 5 8410-2 ####[facility] [id number] [place] [address] [place] MCHC (RBC) [Mass/Vol] 32.8 g/dL Normal 30.5-36.0 [facility] Comment on above: Order Comment: Speci men Type: BLOOD SPECIMENOrdering Facility: [facility] Address: [address] [place] [address] Performed By: #### 5 8410-2 ####[facility] [id number] [address], [facility]95 [place] MCV (RBC) [Entitic vol] 90.9 fL Normal 80.0-100.0 [facility] Comment on above: Order Comment: Speci men Type: BLOOD SPECIMENOrdering Facility: [facility] Address: [address] [place] [address] Performed By: #### 5 8410-2 ####[facility] [id number] [address], [facility]95 [place] Nucleated RBC (Bld) [#/Vol] 10*3/uL Normal <0.01 [facility] Comment on above: Order Comment: Speci men Type: BLOOD SPECIMENOrdering Facility: [facility] Address: [address] [place] [address] Performed By: #### 5 8410-2 ####[facility] [id number] [address], [place] [address] [place] Platelet mean volume (Bld) [Entitic vol] 10.4 fL Normal 9.0-12.7 [facility] Comment on above: Order Comment: Speci men Type: BLOOD SPECIMENOrdering Facility: [facility] Address: [address] [place] [address] Performed By: #### 5 8410-2 ####[facility] [id number] [place] [id number] [place] Platelets (Bld) [#/Vol] 246 10*3/uL Normal 150-400 [facility] Comment on above: Order Comment: Speci men Type: BLOOD SPECIMENOrdering Facility: [facility] Address: [address] [place] [address] Performed By: #### 5 8410-2 ####[facility] [id number] [address] [address] [place] RBC (Bld) [#/Vol] 4.50 10*6/uL Normal 3.90-5.20 [facility] Comment on above: Order Comment: Speci men Type: BLOOD SPECIMENOrdering Facility: [facility] Address: [address] [place] [address] Performed By: #### 5 8410-2 ####[facility] [id number] [place] [address] [place] WBC (Bld) [#/Vol] 6.16 10*3/uL Normal 3.70-11.00 [facility] Comment on above: Order Comment: Speci men Type: BLOOD SPECIMENOrdering Facility: [facility] Address: [address] [place] [address] Performed By: #### 5 8410-2 ####[facility] [id number] [place] [address] [place] Comprehensive metabolic 2000 panelon 06-10-2025 Albumin [Mass/Vol] 3.7 g/dL Low 3.9-4.9 [facility] Comment on above: Order Comment: Speci men Type: BLOOD SPECIMENOrdering Facility: [facility] Address: [address] [place] [address] Performed By: #### 2 4323-8, 91701-7 ####[facility] [id number] [place] [address] [place] ALP [Catalytic activity/Vol] 113 U/L Normal 34-123 [facility] Comment on above: Order Comment: Speci men Type: BLOOD SPECIMENOrdering Facility: [facility] Address: [address] [place] [address] Performed By: #### 2 4323-8, 59029-2 ####[facility] [id number] [place] [id number] [place] ALT [Catalytic activity/Vol] 17 U/L Normal 7-38 [facility] Comment on above: Order Comment: Speci men Type: BLOOD SPECIMENOrdering Facility: [facility] Address: [address] [place] [id number] Performed By: #### 2 4323-8, 36420-7 ####[facility] [id number] [address] [address] [place] Anion gap [Moles/Vol] 14 mmol/L Normal 8-15 [facility] Comment on above: Order Comment: Speci men Type: BLOOD SPECIMENOrdering Facility: [facility] Address: [address] [place], [place] [address] Performed By: #### 2 4323-8, 11595-1 ####[facility] [id number] [place] [address] [place] AST [Catalytic activity/Vol] 27 U/L Normal 13-35 [facility] Comment on above: Order Comment: Speci men Type: BLOOD SPECIMENOrdering Facility: [facility] Address: [address] [place], [place] [address] Performed By: #### 2 4323-8, 25867-6 ####[facility] [id number] [address] [address] [place] Bilirubin [Mass/Vol] 0.4 mg/dL Normal 0.2-1.3 [facility] Comment on above: Order Comment: Speci men Type: BLOOD SPECIMENOrdering Facility: [facility] Address: [address] [place] [id number] Performed By: #### 2 4323-8, 95114-4 ####[facility] [id number] [address] [address] [place] Calcium [Mass/Vol] 9.9 mg/dL Normal 8.5-10.2 [facility] Comment on above: Order Comment: Speci men Type: BLOOD SPECIMENOrdering Facility: [facility] Address: [address] [place], [place] [address] Performed By: #### 2 4323-8, 08729-7 ####[facility] [id number] [address] [address] [place] Chloride [Moles/Vol] 101 mmol/L Normal 98-107 [facility] Comment on above: Order Comment: Speci men Type: BLOOD SPECIMENOrdering Facility: [facility] Address: [address] [place] [address] Performed By: #### 2 4323-8, 48512-3 ####[facility] [id number] [place] [address] [place] CO2 [Moles/Vol] 24 mmol/L Normal 22-30 [facility] Comment on above: Order Comment: Speci men Type: BLOOD SPECIMENOrdering Facility: [facility] Address: [address] [place] [address] Performed By: #### 2 4323-8, 29912-2 ####[facility] [id number] [place] [address] [place] Creatinine [Mass/Vol] 0.74 mg/dL Normal 0.58-0.96 [facility] Comment on above: Order Comment: Speci men Type: BLOOD SPECIMENOrdering Facility: [facility] Address: [address] [place] [address] Performed By: #### 2 4323-8, 84542-5 ####[facility] [id number] [address] [address] [place] eGFRcr SerPlBld CKD-EPI 2020 87 mL/min/1.73m??? Normal >=60 [facility] Comment on above: Order Comment: Speci men Type: BLOOD SPECIMENOrdering Facility: [facility] Address: [address] [place] [address] Result Comment: Chastity mated Glomerular Filtration Rate (eGFR) is calculated using the 2020 CKD-EPI creatinine equation. This equation utilizes serum creatinine, sex, and age as parameters. The creatinine assay has traceable calibration to isotope dilution-mass spectrometry. Refer to KDIGO guidelines for clinical interpretation. In patients with unstable renal function, e.g. those with acute kidney injury, the eGFR may not accurately reflect actual GFR. Performed By: #### 2 4323-8, 80075-8 ####[facility] [id number] [place] [address] [place] Glucose [Mass/Vol] 101 mg/dL High 74-99 [facility] Comment on above: Order Comment: Specsowmya men Type: BLOOD SPECIMENOrdering Facility: [facility] Address: [address] [place] [address] Result Comment: The [place] Diabetes Association (ADA) provides guidance for cutoff values for fasting glucose and random glucose. The ADA defines fasting as no caloric intake for at least 8 hours. Fasting plasma glucose results between 100 to 125 mg/dL indicate increased risk for diabetes (prediabetes). Fasting plasma glucose results greater than or equal to 126 mg/dL meet the criteria for diagnosis of diabetes. In the absence of unequivocal hyperglycemia, results should be confirmed by repeat testing. In a patient with classic symptoms of hyperglycemia or hyperglycemic crisis, random plasma glucose results greater than or equal to 200 mg/dL meet the criteria for diagnosis of diabetes. Reference: Standards of Medical Care in Diabetes 2016, [place] Diabetes Association. Diabetes Care. 2016.39(Suppl 1). Performed By: #### 2 4323-8, ####[facility] [id number] [place] [address] [place] Potassium [Moles/Vol] 4.4 mmol/L Normal 3.7-5.1 [facility] Comment on above: Order Comment: Akil gonzalez Type: BLOOD SPECIMENOrdering Facility: [facility] Address: [address] [place] [address] Performed By: #### 2 4323-8, ####[facility] [id number] [address] [address] [place] Protein [Mass/Vol] 8.2 g/dL High 6.3-8.0 [facility] Comment on above: Order Comment: Speci men Type: BLOOD SPECIMENOrdering Facility: [facility] Address: [address] [place] [address] Performed By: #### 2 4323-8, 39219-1 ####[facility] [id number] [facility] [place] [id number] [place] Sodium [Moles/Vol] 139 mmol/L Normal 136-144 [facility] Comment on above: Order Comment: Speci men Type: BLOOD SPECIMENOrdering Facility: [facility] Address: [address] [place] [address] Performed By: #### 2 4323-8, 99254-9 ####[facility] [id number] [place] [address] [place] Urea nitrogen [Mass/Vol] 19 mg/dL Normal 7-21 [facility] Comment on above: Order Comment: Speci men Type: BLOOD SPECIMENOrdering Facility: [facility] Address: [address] [place] [address] Performed By: #### 2 4323-8, 48708-1 ####[facility] [id number] [facility] [address] [address] [place] HbA1c (Bld)on 06-10-2025 Average glucose Estimated from glycated hemoglobin (Bld) [Mass/Vol] 214 mg/dL Normal [facility] Comment on above: Order Comment: Speci men Type: BLOOD SPECIMENOrdering Facility: [facility] Address: [address] [place] [address] Result Comment: eAG: (Estimated average glucose) is a calculated value from HgbA1c and is insurance claim representative of the average blood glucose level in the last 2-3 month period. Performed By: #### 5 5454-3 ####[facility] [id number] [address] [address] [place] HbA1c (Bld) [Mass fraction] 9.1 % High 4.3-5.6 [facility] Comment on above: Order Comment: Akil lisa Type: BLOOD SPECIMENOrdering Facility: [facility] Address: [address] [place] [address] Result Comment: [place] Diabetes Association guidelines indicate that patients with HgbA1c in the range 5.7-6.4% are at increased risk for development of diabetes, and intervention by lifestyle modification may be beneficial. HgbA1c greater or equal to 6.5% is considered diagnostic of diabetes. Performed By: #### 5 5454-3 ####[facility] [id number] [place] [id number] [facility] [place] Lipid 1996 panelon 5 Cholesterol [Mass/Vol] 184 mg/dL Normal <200 [facility] Comment on above: Order Comment: Akil gonzalez Type: BLOOD SPECIMENOrdering Facility: [facility] Address: [address] [place] [address] Result Comment: <200 mg/dL, Desirable 200-239 mg/dL, Borderline high >239 mg/dL, High Performed By: #### 2 4323-8, 86413-7 ####[facility] [id number] [address] [place] Cholesterol in HDL [Mass/Vol] 41 mg/dL Normal >39 [facility] Comment on above: Order Comment: Akil lisa Type: BLOOD SPECIMENOrdering Facility: [facility] Address: [address] [place] [address] Result Comment: 40-5 9 mg/dL, Acceptable >59 mg/dL, High: Negative risk factor for coronary heart disease <40 mg/dL, Low: Positive risk factor for coronary heart disease Performed By: #### 2 4323-8, 45917-4 ####[facility] [id number] [address] [place] [address] [place] Cholesterol in LDL [Mass/Vol] 110 mg/dL High <100 [facility] Comment on above: Order Comment: Akil men Type: BLOOD SPECIMENOrdering Facility: [facility] Address: [address] [place] [address] Result Comment: <100 mg/dL, Optimal 100-129 mg/dL, Near optimal/above optimal 130-159 mg/dL, Borderline high 160-189 mg/dL, High >189 mg/dL, Very high Secondary prevention optimal LDL Cholesterol levels are recommended to be <70 mg/dL LDL cholesterol is calculated using the Rodas-NIH equation. Performed By: #### 2 432-8, 90686-8 ####[facility] [id number] [address] [address] [place] Cholesterol in LDL/Cholesterol in HDL [Mass ratio] 2.68 {ratio} High <2.54 [facility] Comment on above: Order Comment: Akil men Type: BLOOD SPECIMENOrdering Facility: [facility] Address: [address] [place] [address] Result Comment: Refe rence: 1. National Cholesterol Education Program ATP III Guideline At-A-Glance Quick Desk Reference: National Heart, Lung, and Blood [place]. National Institutes of Health. 2001: NIH Publication No. 01-3305. 2. An International Atherosclerosis Society position paper: global recommendations for the management of dyslipidemia: executive summary, Atherosclerosis. 2014: 232(2):410-413. Performed By: #### 2 4323-8, ####[facility] [id number] [address] [address] [place] Cholesterol in VLDL [Mass/Vol] 31 mg/dL High <30 [facility] Comment on above: Order Comment: Clarencei lisa Type: BLOOD SPECIMENOrdering Facility: [facility] Address: [address] [place] [address] Performed By: #### 2 4323-8, ####[facility] [id number] [address] [address] [place] Cholesterol non HDL [Mass/Vol] 143 mg/dL High <130 [facility] Comment on above: Order Comment: Speci men Type: BLOOD SPECIMENOrdering Facility: [facility] Address: [address] [place] [address] Result Comment: <130 mg/dL, Optimal 130-159 mg/dL, Near optimal/above optimal 160-189 mg/dL, Borderline high 190-219 mg/dL, High >219 mg/dL, Very high Secondary prevention optimal non HDL Cholesterol levels are recommended to be <100 mg/dL Performed By: #### 2 4323-8, 97496-4 ####[facility] [id number] [place] [address] [place] Cholesterol.total/Choles terol in HDL [Mass ratio] 4.49 {ratio} Normal <5.10 [facility] Comment on above: Order Comment: Speci men Type: BLOOD SPECIMENOrdering Facility: [facility] Address: [address] [place] [address] Performed By: #### 2 4323-8, 18904-8 ####[facility] [id number] [place] [address] [place] FASTING TIME 12 hrs Normal [facility] Comment on above: Order Comment: Speci men Type: BLOOD SPECIMENOrdering Facility: [facility] Address: [address] [place] [address] Performed By: #### 2 4323-8, 57613-8 ####[facility] [id number] [place] [address] [place] Triglyceride [Mass/Vol] 186 mg/dL High <150 [facility] Comment on above: Order Comment: Speci men Type: BLOOD SPECIMENOrdering Facility: [facility] Address: [address] [place] [address] Result Comment: <150 mg/dL, Normal 150-199 mg/dL, Borderline high 200-499 mg/dL, High >499 mg/dL, Very high Performed By: #### 2 4323-8, 03352-6 ####[facility] [id number] [place] [id number] [place] PT panel Coag (PPP)on 2024 INR Coag (PPP) [Relative time] 2.7 {INR} High 0.9-1.3 [facility] Comment on above: Order Comment: Speci lisa Type: BLOOD SPECIMENOrdering Facility: [facility] Address: [address] [place] [address] Result Comment: Adela min K Antagonist (VKA) Therapeutic Range: INR 2 to 3 (Target INR of 2.5) Note: For patients treated with VKA drugs, such as warfarin, the [place] College of Chest Physicians 2012 Guideline recommends a therapeutic INR range of 2 to 3 (target INR of 2.5). This recommendation includes high-risk patients with antiphospholipid syndrome with previous arterial or venous thromboembolism, current-generation mechanical or bioprosthetic aortic heart valve replacement. Note: Patients with mechanical aortic valve replacement and additional risk factors for thromboembolic events (atrial fibrillation, previous thromboembolism, LV dysfunction, hypercoagulable conditions) or an older generation mechanical AVR (i.e., ball in-Cage) or any mechanical MVR should have a INR therapeutic range of 2.5 to 3.5 (target INR of 3). Leroy GH, et al. Chest 2012, 141:7S-47S Sveta RA, et al. [facility] 2017, 70: 252-289 Performed By: #### 3 4528-0 ####[facility] [id number] [place] [id number] [place] PT Coag (PPP) [Time] 27.7 s High 9.7-13.0 [facility] Comment on above: Order Comment: Speci men Type: BLOOD SPECIMENOrdering Facility: [facility] Address: [address] [place] [address] Performed By: #### 3 4528-0 ####[facility] [id number] [place] [id number] [place] CNPKalyn 05-05-2025 CNPN Telephone ([email or web address]) WENDY FORTE ([id number]) 1955 F Date Time Provider Department 05/05/25 JANIYA OSBORNS During your visit today, we recorded the following information about you: Janiya Osborn CPhT 05/05/2025 5:40 AM Signed PLEASE DO NOT FAX FORMS BACK TO I Do Now I Don't. Once signed by patient AND provider please fax forms back to Patient Assistance Team ATTN : Kali at [phone]. Patient AND Provider's section of patient assistance application through [employer] for medications (Ozempic 0.25/0.5mg) have been scanned into patient's chart. Patient Assistance Team is asking that forms be printed from scanned documents in EPIC at providers office for both patient AND provider to review and sign. Once signed by both parties please fax back to PAP Team at [phone]. Thank You! Mendoza Banuelos Elizabeth, MA 05/05/2025 2:53 PM Addendum Printed patient section but did not see section for provider to sign. Messaged Janiya to see if needing scanned in still and she fixed. Forms put on provider desk to sign and called patient advising forms need done. Forms mailed to patient house and asked her to drop off when completed YESY Woods Monika, CPhT 05/16/2025 7:10 PM Signed Patient Assistance application faxed on 05/16/2025 to [employer] regarding medication(s) Ozempic 0.25/0.5mg Processing of patient assistance application will take 7-10 business. If PAP Team does not receive faxed response in time frame noted above we will reach out to collision worker via phone call to check on status. Mendoza Banuelos Liza D, MD 05/16/2025 9:16 PM Signed Verify was printed for me to sign then document when has been signed and faxed Sulma Henriquez LPN 05/18/2025 3:04 PM Signed This was signed and faxed Janiya Osborn CPhT 05/26/2025 1:40 PM Signed Called [facility] [place] [facility] to check status of patient renewal application. Per [facility] patient needs to provider proof of income (see accepted documents below) Proof of Income Social security benefit letters 1040 tax forms pages 1 AND 2 Bank statement showing SSI deposit amount within last 90 days W-4 Last 2 pay stubs) as proof of income. You can submit these documents by secure email at [email or web address], Mendoza Banuelos Deborah, LPN 05/29/2025 12:17 PM Signed No answer. Left message for patient to call office and ask to speak to a nurse regarding her patient assistance Daniele Ferreira CPhT 07/06/2025 11:42 AM Signed [place] patient is no longer being followed by Patient Assistance Team for medication(s) Ozempic Due to patient no longer taking. Self-discontinued, states provider is aware Patient 2025 roberto canceled as of 07/06/2025. If patient needs further assistance with medication(s) a new consult would need to be placed to re-establish care. If there are any questions please feel free to reach back out. Thanks AND Have a Great Day, Daniele Ferreira CPhT Allergies As of Date: 05/05/2025 Noted Allergy Reaction SULFA (SULFONAMIDE ANTIBIOTICS) 08/28/2006 2 - Rash Comments: BLISTERS Date Reviewed: 01/09/2025 Reviewed by: Claire Smiley LPN - Fully Assessed Reason for Visit: Forms [913] Cmt: Patient Assistance Program - Magali Nordisk (Ozempic 0.25mg/0.5mg) Prescriptions as of 07/06/2025 - clopidogrel (PLAVIX) 75 mg tablet Take 1 tablet by mouth once daily. - metoprolol tartrate, short acting, (LOPRESSOR) 50 mg tablet Take 1 tablet by mouth two times a day. - IFEREX 150 150 mg iron capsule Take 1 capsule by mouth once daily. - FLUoxetine (PROZAC) 40 mg capsule Take 1 capsule by mouth once daily. - warfarin (COUMADIN) 2.5 mg tablet Start with 2.5 mg daily, or as directed based on INRs - rosuvastatin (CRESTOR) 5 mg tablet Take 1 tablet by mouth daily at bedtime. - metFORMIN ER (GLUCOPHAGE XR) 500 mg 24 hr tablet Take 2 tablets by mouth two times a day with meals. - semaglutide (OZEMPIC) 0.25 mg or 0.5 mg (2 mg/3 mL) pen Inject 0.25 mg subcutaneously one time a week. Do not send to the pharmacy - receives through patient assistance program. Managed by [facility] pharmacy team - any order changes, route to?[facility] - insulin lispro (HUMALOG KWIKPEN INSULIN) 100 unit/mL Take 6 units before meals if pre-meal BG >150 mg/dL. Patient assistance medication - insulin glargine 100 unit/mL (3 mL) Inject 40 Units subcutaneously daily at bedtime. Patient assistance medication - L. acidophilus/Bifid. animalis (DAILY PROBIOTIC ORAL) Take 1 capsule by mouth once daily. - estradiol (ESTRACE) 0.01 % (0.1 mg/gram) vaginal cream Use 1 g vaginally two times a week. Apply before bed. Apply a pea-sized amount of cream to the vagina/vulva. - Biotin 10,000 mcg cap Take 10,000 mcg by mouth once daily. With Ke (more content not included)... [facility] WEND[facility] FOR[facility] ([id number]) 1955 F Date Time Provider Department 05/05/25 JIGNA ARANA During your visit today, we recorded the following information about you: Jigna Arana holley 05/05/2025 4:45 PM Signed [facility] Ambulatory Pharmacy Anticoagulation Clinic Anticoagulation Episode Summary Anticoagulation Care Providers Provider Role Specialty Phone number Estephania Rodriguez MD Referring Internal Medicine [phone] Wendy Forte is a 70 year old year old female patient being evaluated today for a Telemanagement visit. Patient is currently on the following anticoagulant(s) Warfarin. Labs Lab Results Component Value Date INR 1.9 (H) 05/05/2025 INR 1.9 (H) 04/08/2025 INR 2.2 (H) 03/03/2025 Lab Results Component Value Date HB 12.9 09/09/2023 HB 11.7 06/10/2023 HB 12.5 06/30/2022 Lab Results Component Value Date HCT 40.6 09/09/2023 HCT 37.7 06/10/2023 HCT 38.8 06/30/2022 Lab Results Component Value Date PLT 270 09/09/2023 PLT 257 06/10/2023 PLT 274 06/30/2022 Lab Results Component Value Date CREAT 0.77 09/24/2024 CREAT 0.72 08/19/2024 CREAT 0.74 02/08/2024 No components found for: TBILI3 Lab Results Component Value Date ALT 21 09/24/2024 ALT 27 08/19/2024 ALT 32 09/09/2023 Lab Results Component Value Date AST 35 09/24/2024 AST 31 08/19/2024 AST 26 09/09/2023 CrCl cannot be calculated (Patient's most recent lab result is older than the maximum 180 days allowed.). 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 Jigna Arana RPh 06/02/2025 12:08 PM Signed Patient was due to test INR today. Will continue to monitor for results. Follow up in one week if no results received. Patient's INR Goal range is - 2.0-3.0 PT INR (no units) Date Value 07/10/2024 2.5 12/13/2021 2.2 11/01/2021 2.2 INR (no units) Date Value 05/05/2025 1.9 04/08/2025 1.9 03/03/2025 2.2 Patient is in titration phase - No Patient has dosing provided until next INR - Yes Patient is on an injectable anticoagulant - No Stephen Ariza Sara, RPh 06/09/2025 5:41 PM Signed Wendy Forte was called and reminded to test INR today or as soon as possible. Patient states she is going tomorrow morning. Jigna Arana RPh Allergies As of Date: 05/05/2025 Noted Allergy Reaction SULFA (SULFONAMIDE ANTIBIOTICS) 08/28/2006 2 - Rash Comments: BLISTERS Date Reviewed: 01/09/2025 Reviewed by: Claire Smiley LPN - Fully Assessed Reason for Visit: Anticoagulation Telephone Fu [148] Cmt: INR Lab Result Primary Visit Diagnosis:PAF (paroxysmal atrial fibrillation) ([facility]) [I48.0] Other Visit Diagnosis:half-way current use of anticoagulant [Z79.01] Prescriptions as of 06/09/2025 - semaglutide (OZEMPIC) 0.25 mg or 0.5 mg (2 mg/3 mL) pen Inject 0.25 mg subcutaneously one time a week. Do not send to the pharmacy - receives through patient assistance program. Managed by [facility] pharmacy team - any order changes, route to?[facility] - insulin lispro (HUMALOG KWIKPEN INSULIN) 100 unit/mL Take 6 units before meals if pre-meal BG >150 mg/dL. Patient assistance medication - insulin glargine 100 unit/mL (3 mL) Inject 40 Units subcutaneously daily at bedtime. Patient assistance medication - clopidogrel (PLAVIX) 75 mg tablet Take 1 tablet by mouth once daily. - FLUoxetine (PROZAC) 40 mg capsule Take 1 capsule by mouth once daily. - IFEREX 150 150 mg iron capsule Take 1 capsule by mouth once daily. - metFORMIN ER (GLUCOPHAGE XR) 500 mg 24 hr tablet Take 2 tablets by mouth two times a day with meals. - metoprolol tartrate, short acting, (LOPRESSOR) 50 mg tablet Take 1 tablet by mouth two times a day. - rosuvastatin (CRESTOR) 5 mg tablet Take 1 tablet by mouth daily at bedtime. - warfarin (COUMADIN) 2.5 mg tablet Start with 2.5 mg daily except 1.25mg Thurs - L. acidophilus/Bifid. animalis (DAILY PROBIOTIC ORAL) Take 1 capsule by mouth once daily. - estradiol (ESTRACE) 0.01 % (0.1 mg/gram) vaginal cream Use 1 g vaginally two times a week. Apply before bed. Apply a pea-sized amount of cream to the vagina/vulva. - Biotin 10,000 mcg cap Take 10,000 mcg by mouth (more content not included)... Normal [facility] PT panel Coag (PPP)on 2024 INR Coag (PPP) [Relative time] 1.9 {INR} High 0.9-1.3 [facility] Comment on above: Order Comment: Speci men Type: BLOOD SPECIMENOrdering Facility: [facility] Address: [address] [place] [address] Result Comment: Adela min K Antagonist (VKA) Therapeutic Range: INR 2 to 3 (Target INR of 2.5) Note: For patients treated with VKA drugs, such as warfarin, the [place] [employer] 2012 Guideline recommends a therapeutic INR range of 2 to 3 (target INR of 2.5). This recommendation includes high-risk patients with antiphospholipid syndrome with previous arterial or venous thromboembolism, current-generation mechanical or bioprosthetic aortic heart valve replacement. Note: Patients with mechanical aortic valve replacement and additional risk factors for thromboembolic events (atrial fibrillation, previous thromboembolism, LV dysfunction, hypercoagulable conditions) or an older generation mechanical AVR (i.e., ball in-Cage) or any mechanical MVR should have a INR therapeutic range of 2.5 to 3.5 (target INR of 3). Leroy GH, et al. Chest 2012, 141:7S-47S Sveta RA et al. [facility] 2017, 70: 252-289 Performed By: #### 3 4528-0 ####[facility]CL[facility] [id number] [address] [place] PT Coag (PPP) [Time] 19.5 s High 9.7-13.0 [facility] Comment on above: Order Comment: Akil men Type: BLOOD SPECIMENOrdering Facility: [facility] Address: [address] [place] [address] Performed By: #### 3 4528-0 ####[facility] [id number] CLARIYariel VE[address]ESK [id number] [place] [address] CNPNon 05-03-2025 CNPN Telephone (PHMEWO) WENDY FORTE ([id number]) 1955 F Date Time Provider Department 05/03/25 JAKE EDWARDS PHMEWO During your visit today, we recorded the following information about you: Jake Edwards [facility] 05/03/2025 10:45 AM Signed Called patient for scheduled phone appt today at 10:30 AM. Unable to reach x 3, LMOM x 2. Primary Care Pharmacy Rescheduling Outreach Call center, please contact patient and reschedule telephone visit for Diabetes management within ~4 week(s). (Visit length: 30 minutes) Thank you, Jake Edwards [facility] 05/03/2025 10:44 AM Janiya Sánchez [facility] 05/03/2025 3:02 PM Signed Called pt. to r/s missed appt. LVM. First attempt. Janiya Sánchez [facility] 05/04/2025 2:59 PM Addendum Telephoned the patient to schedule a new Primary Care pharmacy appt. Left a message. Made two attempts to contact the patient. Patient does not have MyChart. If the patient returns a call, an appt will be scheduled. Janiya Sánchez [facility] 05/12/2025 1:48 PM Signed Final attmpt. made. LVM. Pt. does not hav MyChart. If pt.returns our call an appt. will be made. Pt. discharge process is complete at this time. Will route to [facility] as an FYI. Jake Edwards, [facility] 05/17/2025 9:57 AM Signed Called patient again but unable to reach. Will stop PharmD outreach at this time. Appears pt is scheduled to see PCP on 06/24. Will send a reminder to PCP closer to that appt date to see if she can encourage pt to schedule appt. Jake Edwards PharmD, [facility] Primary Care Clinical [facility]ist [facility] 06/21/2025 10:07 AM Signed Called pt and still unable to reach. LMOM. Pt seeing PCP on 06/24, will send note to PCP asking her to remind pt of scheduling PharmD visit. Jake Edwards PharmD, [facility] Primary Care Clinical Pharmacist Allergies As of Date: 05/03/2025 Noted Allergy Reaction SULFA (SULFONAMIDE ANTIBIOTICS) 08/28/2006 2 - Rash Comments: BLISTERS Date Reviewed: 01/09/2025 Reviewed by: Claire Smiley LPN - Fully Assessed Reason for Visit: Missed Appointment [1304] Cmt: Primary care reschedule Prescriptions as of 06/21/2025 - semaglutide (OZEMPIC) 0.25 mg or 0.5 mg (2 mg/3 mL) pen Inject 0.25 mg subcutaneously one time a week. Do not send to the pharmacy - receives through patient assistance program. Managed by [facility] pharmacy team - any order changes, route to?RX [facility] - insulin lispro (HUMALOG KWIKPEN INSULIN) 100 unit/mL Take 6 units before meals if pre-meal BG >150 mg/dL. Patient assistance medication - insulin glargine 100 unit/mL (3 mL) Inject 40 Units subcutaneously daily at bedtime. Patient assistance medication - clopidogrel (PLAVIX) 75 mg tablet Take 1 tablet by mouth once daily. - FLUoxetine (PROZAC) 40 mg capsule Take 1 capsule by mouth once daily. - IFEREX 150 150 mg iron capsule Take 1 capsule by mouth once daily. - metFORMIN ER (GLUCOPHAGE XR) 500 mg 24 hr tablet Take 2 tablets by mouth two times a day with meals. - metoprolol tartrate, short acting, (LOPRESSOR) 50 mg tablet Take 1 tablet by mouth two times a day. - rosuvastatin (CRESTOR) 5 mg tablet Take 1 tablet by mouth daily at bedtime. - warfarin (COUMADIN) 2.5 mg tablet Start with 2.5 mg daily except 1.25mg Thurs - L. acidophilus/Bifid. animalis (DAILY PROBIOTIC ORAL) Take 1 capsule by mouth once daily. - estradiol (ESTRACE) 0.01 % (0.1 mg/gram) vaginal cream Use 1 g vaginally two times a week. Apply before bed. Apply a pea-sized amount of cream to the vagina/vulva. - Biotin 10,000 mcg cap Take 10,000 mcg by mouth once daily. With Keratin 100 MG - blood sugar diagnostic (FREESTYLE TEST) test strip Check 4 time daily as directed. DX E11.65, Insulin: Yes - Lancets lancets Test blood sugar(s) 4 times daily as directed. Dx: diabetes E11.65. Insulin: Yes - insulin needles, DISPOSABLE, (PEN NEEDLE) 31 gauge x 5/16 ndle Use one needle per dose. One per day. - COMPOUNDED PRESCRIPTION Diabetic shoes with insoles. DX E11.65, E11,49 - COMPOUNDED PRESCRIPTION Hinged knee brace for left knee--Nestor Mehta OA Reaction Web Knee brace. Dx Knee pain and decreased mobility secondary to degenerative arthritis 715.96 - COMPOUNDED PRESCRIPTION ascensia lancets Meds Comments as of 02/21/2013: Problem List As Of Date 05/03/2025 Noted Resolved HTN (hypertension), benign [I10] Hyperlipidemia [E78.5] Type II diabetes mellitus, uncontrolled (HCC) [* URINARY FREQUENCY [R35.0] PANIC DISORDER WITHOUT AGORAPHOBIA [F41.0] 07/21/2008 GERD (gastroesophageal reflux disease) [K21.9] 04/05/2012 Heart palpitations [R00.2] 04/05/2012 Obesity, morbid, BMI 40.0-49.9 (HCC) [E66.01] Type 2 diabetes mellitus with hyperglycemia, wi*10/30/2014 PAF (paroxysmal atrial fibrillation) ([facility]) [I48*11/01/2021 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 Normal [facility] CNPNon 04-10-2025 CNPN Telephone (PHAMTE) WENDY FORTE ([id number]) 1955 F Date Time Provider Department 04/10/25 JW ROBERTS PHAMTE During your visit today, we recorded the following information about you: Jw Roberts holley 04/10/2025 11:03 AM Signed [facility] Ambulatory Pharmacy Anticoagulation Clinic Anticoagulation Episode Summary Anticoagulation Care Providers Provider Role Specialty Phone number Estephania Rodriguez MD Referring Internal Medicine [phone] Wendy Forte is a 70 year old year old female patient being evaluated today for a Telemanagement visit. Patient is currently on the following anticoagulant(s) Warfarin. Labs PT INR (no units) Date Value 07/10/2024 2.5 12/13/2021 2.2 11/01/2021 2.2 INR (no units) Date Value 04/08/2025 1.9 03/03/2025 2.2 01/27/2025 2.5 CrCl cannot be calculated (Patient's most recent lab result is older than the maximum 180 days allowed.). 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: Anticoagulation Episode Summary Current INR goal: 2.0-3.0 Assessment: INR result of 1.9 is SUBtherapeutic due to: No obvious cause (patient denies liver, green tea, new herbal/nutritional supplements - such as Boost, Ensure, an increase in vit K foods and/or V8 type juices, any changes in warfarin tablet, or missed doses) Plan: Current Warfarin Dosing As of 04/10/2025 Full warfarin instructions: 04/10: 3.75 mg; Otherwise 1.25 mg every [place]; 2.5 mg all other days Called and spoke to patient/caregiver Advised patient to increase dose for 1 day only then resume weekly regimen as noted above Next INR check due on 05/15/2025 Patient verbalizes understanding of the plan. Jw Roberts [facility] Clinical Pharmacist, Pharmacy Anticoagulation Clinic Pharmacy Anticoagulation Clinic Pager: [phone]. Allergies As of Date: 04/10/2025 Noted Allergy Reaction SULFA (SULFONAMIDE ANTIBIOTICS) 08/28/2006 2 - Rash Comments: BLISTERS Date Reviewed: 01/09/2025 Reviewed by: Claire Smiley LPN - Fully Assessed Reason for Visit: Anticoagulation Telephone Fu [148] Cmt: Lab INR Result Prescriptions as of 04/10/2025 - semaglutide (OZEMPIC) 0.25 mg or 0.5 mg (2 mg/3 mL) pen Inject 0.25 mg subcutaneously one time a week. Do not send to the pharmacy - receives through patient assistance program. Managed by [facility] pharmacy team - any order changes, route to?[facility] - insulin lispro (HUMALOG KWIKPEN INSULIN) 100 unit/mL Take 6 units before meals if pre-meal BG >150 mg/dL. Patient assistance medication - insulin glargine 100 unit/mL (3 mL) Inject 40 Units subcutaneously daily at bedtime. Patient assistance medication - clopidogrel (PLAVIX) 75 mg tablet Take 1 tablet by mouth once daily. - FLUoxetine (PROZAC) 40 mg capsule Take 1 capsule by mouth once daily. - IFEREX 150 150 mg iron capsule Take 1 capsule by mouth once daily. - metFORMIN ER (GLUCOPHAGE XR) 500 mg 24 hr tablet Take 2 tablets by mouth two times a day with meals. - metoprolol tartrate, short acting, (LOPRESSOR) 50 mg tablet Take 1 tablet by mouth two times a day. - rosuvastatin (CRESTOR) 5 mg tablet Take 1 tablet by mouth daily at bedtime. - warfarin (COUMADIN) 2.5 mg tablet Start with 2.5 mg daily except 1.25mg Thurs - L. acidophilus/Bifid. animalis (DAILY PROBIOTIC ORAL) Take 1 capsule by mouth once daily. - estradiol (ESTRACE) 0.01 % (0.1 mg/gram) vaginal cream Use 1 g vaginally two times a week. Apply before bed. Apply a pea-sized amount of cream to the vagina/vulva. - Biotin 10,000 mcg cap Take 10,000 mcg by mouth once daily. With Keratin 100 MG - blood sugar diagnostic (FREESTYLE TEST) test strip Check 4 time daily as directed. DX E11.65, Insulin: Yes - Lancets lancets Test blood sugar(s) 4 times daily as directed. Dx: diabetes E11.65. Insulin: Yes - insulin needles, DISPOSABLE, (PEN NEEDLE) 31 gauge x 5/16 ndle Use one needle per dose. One per day. - COMPOUNDED PRESCRIPTION Diabetic shoes with insoles. DX E11.65, E11,49 - COMPOUNDED PRESCRIPTION Hinged knee brace for left knee--Don Janine OA Reaction Web Knee brace. Dx Knee pain and decreased mobility secondary to degenerative arthritis 715.96 - COMPOUNDED PRESCRIPTION ascensia lancets Meds Comments as of 02/21/2013: Problem List As Of Date 04/10/2025 Noted Resolved HTN (hypertension), benign [I10] Hyperlipidemia [E78.5] Type II diabetes mellitus, uncontrolled (HCC) [* URINARY FREQUENCY [R35.0] PANIC DISORDER WITHOUT AGORAPHOBIA [F41.0] 07/21/2008 GERD (gastroesophageal reflux disease) [K21.9] 04/05/2012 Heart palpitations [R00.2] 04/05/2012 Obesity, morbid, BMI 40.0-49.9 (HCC) [E66.01] Type 2 diabetes mellitus with hyperglycemia, wi*10/30/2014 PAF (paroxysmal atrial fibrillation) ([facility]) [I48*11/01/2021 half-way cu (more content not included)... Normal [facility] PT panel Coag (PPP)on 2024 INR Coag (PPP) [Relative time] 1.9 {INR} High 0.9-1.3 [facility] Comment on above: Order Comment: Speci men Type: BLOOD SPECIMENOrdering Facility: [facility] Address: [address] [place] [id number] Result Comment: Adela min K Antagonist (VKA) Therapeutic Range: INR 2 to 3 (Target INR of 2.5) Note: For patients treated with VKA drugs, such as warfarin, the [place] [employer] 2012 Guideline recommends a therapeutic INR range of 2 to 3 (target INR of 2.5). This recommendation includes high-risk patients with antiphospholipid syndrome with previous arterial or venous thromboembolism, current-generation mechanical or bioprosthetic aortic heart valve replacement. Note: Patients with mechanical aortic valve replacement and additional risk factors for thromboembolic events (atrial fibrillation, previous thromboembolism, LV dysfunction, hypercoagulable conditions) or an older generation mechanical AVR (i.e., ball in-Cage) or any mechanical MVR should have a INR therapeutic range of 2.5 to 3.5 (target INR of 3). Leroy GH, et al. Chest 2012, 141:7S-47S Sveta RA, et al. [facility] 2017, 70: 252-289 Performed By: #### 3 4528-0 ####[facility] [id number] [address] [place] PT Coag (PPP) [Time] 19.8 s High 9.7-13.0 [facility] Comment on above: Order Comment: Speci men Type: BLOOD SPECIMENOrdering Facility: [facility] Address: [address] [place] [address] Performed By: #### 3 4528-0 ####[facility] [id number] [address] Jose 04-05-2025 CNPN Telephone (PHMEWO) WENDY FORTE ([id number]) 1955 F Date Time Provider Department 04/05/25 JAKE EDWARDS During your visit today, we recorded the following information about you: Jake Edwards RP 04/05/2025 6:32 AM Signed [address] will no longer be auto-shipping Ozempic to providers offices when patient is due for refill. Instead, a refill/reorder form will need to be filled in each time and signed by provider, faxed to company AND processed for medication to be sent. Confirmed is taking Ozempic. Ozempic dose change is required --> Patient is only taking 0.25mg weekly at this time. We are doing gradual titrations due to tolerability issues. Hoping to eventually get up to 0.5mg weekly. Will inform PAP team if that happens. Confirmed last shipment date: 12/22/24 Jake Edwards, Rusty, [facility] Primary Care Clinical Pharmacist Allergies As of Date: 04/05/2025 Noted Allergy Reaction SULFA (SULFONAMIDE ANTIBIOTICS) 08/28/2006 2 - Rash Comments: BLISTERS Date Reviewed: 01/09/2025 Reviewed by: Claire Smiley LPN - Fully Assessed Reason for Visit: Patient Assistance [Other] Cmt: Ozempic refills Visit Diagnosis:Type 2 diabetes mellitus with hyperglycemia, without long-term current use of insulin (HCC) [E11.65] Order(s):Order #: [id number] Prescriptions as of 04/05/2025 - semaglutide (OZEMPIC) 0.25 mg or 0.5 mg (2 mg/3 mL) pen Inject 0.25 mg subcutaneously one time a week. Do not send to the pharmacy - receives through patient assistance program. Managed by [facility] pharmacy team - any order changes, route to?[facility] - insulin lispro (HUMALOG KWIKPEN INSULIN) 100 unit/mL Take 6 units before meals if pre-meal BG >150 mg/dL. Patient assistance medication - insulin glargine 100 unit/mL (3 mL) Inject 40 Units subcutaneously daily at bedtime. Patient assistance medication - clopidogrel (PLAVIX) 75 mg tablet Take 1 tablet by mouth once daily. - FLUoxetine (PROZAC) 40 mg capsule Take 1 capsule by mouth once daily. - IFEREX 150 150 mg iron capsule Take 1 capsule by mouth once daily. - metFORMIN ER (GLUCOPHAGE XR) 500 mg 24 hr tablet Take 2 tablets by mouth two times a day with meals. - metoprolol tartrate, short acting, (LOPRESSOR) 50 mg tablet Take 1 tablet by mouth two times a day. - rosuvastatin (CRESTOR) 5 mg tablet Take 1 tablet by mouth daily at bedtime. - warfarin (COUMADIN) 2.5 mg tablet Start with 2.5 mg daily except 1.25mg Thurs - L. acidophilus/Bifid. animalis (DAILY PROBIOTIC ORAL) Take 1 capsule by mouth once daily. - estradiol (ESTRACE) 0.01 % (0.1 mg/gram) vaginal cream Use 1 g vaginally two times a week. Apply before bed. Apply a pea-sized amount of cream to the vagina/vulva. - Biotin 10,000 mcg cap Take 10,000 mcg by mouth once daily. With Keratin 100 MG - blood sugar diagnostic (FREESTYLE TEST) test strip Check 4 time daily as directed. DX E11.65, Insulin: Yes - Lancets lancets Test blood sugar(s) 4 times daily as directed. Dx: diabetes E11.65. Insulin: Yes - insulin needles, DISPOSABLE, (PEN NEEDLE) 31 gauge x 5/16 ndle Use one needle per dose. One per day. - COMPOUNDED PRESCRIPTION Diabetic shoes with insoles. DX E11.65, E11,49 - COMPOUNDED PRESCRIPTION Hinged knee brace for left knee--Nestor Mehta OA Reaction Web Knee brace. Dx Knee pain and decreased mobility secondary to degenerative arthritis 715.96 - COMPOUNDED PRESCRIPTION ascJUNTA.CL Meds Comments as of 02/21/2013: Problem List As Of Date 04/05/2025 Noted Resolved HTN (hypertension), benign [I10] Hyperlipidemia [E78.5] Type II diabetes mellitus, uncontrolled ([facility]) [* URINARY FREQUENCY [R35.0] PANIC DISORDER WITHOUT AGORAPHOBIA [F41.0] 07/21/2008 GERD (gastroesophageal reflux disease) [K21.9] 04/05/2012 Heart palpitations [R00.2] 04/05/2012 Obesity, morbid, BMI 40.0-49.9 ([facility]) [E66.01] Type 2 diabetes mellitus with hyperglycemia, wi*10/30/2014 PAF (paroxysmal atrial fibrillation) ([facility]) [I48*11/01/2021 half-way current use of anticoagulant [Z79.01] 06/21/2022 Recurrent major depressive disorder, in full re*05/18/2023 Prescriptions ordered this encounter Disp Refills Start End SEMAGLUTIDE 0.25 MG OR 0.5 MG (2 MG/* 04/05/2025 Class: Med Update Route: SQ Sig: Inject 0.25 mg subcutaneously one time a week. Do not send to the pharmacy - receives through patient assistance program. Managed by [facility] pharmacy team - any order changes, route to?[facility] Medications Discontinued During This Encounter Prescriptions - semaglutide (OZEMPIC) 0.25 mg or 0.5 mg (2 mg/3 mL) pen (Discontinued) Take 0.25mg weekly for 4 weeks then take 0.5mg weekly thereafter. Gets through [employer]. Encounter Status:Closed by JAKE EDWARDS on 04/05/25 [facility] Jose 03-27-2025 [facility] Telephone (PHMEWO) WENDY FORTE ([id number]) 1955 F Date Time Provider Department 03/27/25 JAKE EDWARDS [facility] During your visit today, we recorded the following information about you: Jake Edwards [facility] 03/27/2025 2:51 PM Signed Patient had cancelled scheduled PharmD visit for 03/22. PharmD called today to reschedule but unable to reach. OM to return call. Jake Edwards PharmD, [facility] Primary Care Clinical Pharmacist Jake Edwards [facility] 04/10/2025 11:24 AM Signed Called patient, scheduled visit for 05/03. Jake Edwards PharmD, [facility] Primary Care Clinical Pharmacist Allergies As of Date: 03/27/2025 Noted Allergy Reaction SULFA (SULFONAMIDE ANTIBIOTICS) 08/28/2006 2 - Rash Comments: BLISTERS Date Reviewed: 01/09/2025 Reviewed by: Claire Smiley LPN - Fully Assessed Reason for Visit: Appointment [186] Prescriptions as of 04/10/2025 - semaglutide (OZEMPIC) 0.25 mg or 0.5 mg (2 mg/3 mL) pen Inject 0.25 mg subcutaneously one time a week. Do not send to the pharmacy - receives through patient assistance program. Managed by [facility] pharmacy team - any order changes, route to?[facility] - insulin lispro (HUMALOG KWIKPEN INSULIN) 100 unit/mL Take 6 units before meals if pre-meal BG >150 mg/dL. Patient assistance medication - insulin glargine 100 unit/mL (3 mL) Inject 40 Units subcutaneously daily at bedtime. Patient assistance medication - clopidogrel (PLAVIX) 75 mg tablet Take 1 tablet by mouth once daily. - FLUoxetine (PROZAC) 40 mg capsule Take 1 capsule by mouth once daily. - IFEREX 150 150 mg iron capsule Take 1 capsule by mouth once daily. - metFORMIN ER (GLUCOPHAGE XR) 500 mg 24 hr tablet Take 2 tablets by mouth two times a day with meals. - metoprolol tartrate, short acting, (LOPRESSOR) 50 mg tablet Take 1 tablet by mouth two times a day. - rosuvastatin (CRESTOR) 5 mg tablet Take 1 tablet by mouth daily at bedtime. - warfarin (COUMADIN) 2.5 mg tablet Start with 2.5 mg daily except 1.25mg Thurs - L. acidophilus/Bifid. animalis (DAILY PROBIOTIC ORAL) Take 1 capsule by mouth once daily. - estradiol (ESTRACE) 0.01 % (0.1 mg/gram) vaginal cream Use 1 g vaginally two times a week. Apply before bed. Apply a pea-sized amount of cream to the vagina/vulva. - Biotin 10,000 mcg cap Take 10,000 mcg by mouth once daily. With Keratin 100 MG - blood sugar diagnostic (FREESTYLE TEST) test strip Check 4 time daily as directed. DX E11.65, Insulin: Yes - Lancets lancets Test blood sugar(s) 4 times daily as directed. Dx: diabetes E11.65. Insulin: Yes - insulin needles, DISPOSABLE, (PEN NEEDLE) 31 gauge x 5/16 ndle Use one needle per dose. One per day. - COMPOUNDED PRESCRIPTION Diabetic shoes with insoles. DX E11.65, E11,49 - COMPOUNDED PRESCRIPTION Hinged knee brace for left knee--Nestor Mehta OA Reaction Web Knee brace. Dx Knee pain and decreased mobility secondary to degenerative arthritis 715.96 - COMPOUNDED PRESCRIPTION ascensia lancets Meds Comments as of 02/21/2013: Problem List As Of Date 03/27/2025 Noted Resolved HTN (hypertension), benign [I10] Hyperlipidemia [E78.5] Type II diabetes mellitus, uncontrolled ([facility]) [* URINARY FREQUENCY [R35.0] PANIC DISORDER WITHOUT AGORAPHOBIA [F41.0] 07/21/2008 GERD (gastroesophageal reflux disease) [K21.9] 04/05/2012 Heart palpitations [R00.2] 04/05/2012 Obesity, morbid, BMI 40.0-49.9 ([facility]) [E66.01] Type 2 diabetes mellitus with hyperglycemia, wi*10/30/2014 PAF (paroxysmal atrial fibrillation) ([facility]) [I48*11/01/2021 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] 06/21/2022 Recurrent major depressive disorder, in full re*05/18/2023 Encounter Status:Closed by JAKE EDWARDS on 03/27/25 [facility] 03-03-2025 CNPN Telephone (PHAMTE) WENDY FORTE ([id number]) 1955 F Date Time Provider Department 03/03/25 JIGNA ARANA During your visit today, we recorded the following information about you: Jigna Arana [facility] 03/03/2025 3:49 PM Signed [facility] Ambulatory Pharmacy Anticoagulation Clinic Anticoagulation Episode Summary Anticoagulation Care Providers Provider Role Specialty Phone number Estephania Rodriguez MD Referring Internal Medicine [phone] Wendy Forte is a 69 year old year old female patient being evaluated today for a Telemanagement visit. Patient is currently on the following anticoagulant(s) Warfarin. Labs Lab Results Component Value Date INR 2.2 (H) 03/03/2025 INR 2.5 (H) 01/27/2025 INR 2.5 (H) 12/31/2024 Lab Results Component Value Date HB 12.9 09/09/2023 HB 11.7 06/10/2023 HB 12.5 06/30/2022 Lab Results Component Value Date HCT 40.6 09/09/2023 HCT 37.7 06/10/2023 HCT 38.8 06/30/2022 Lab Results Component Value Date PLT 270 09/09/2023 PLT 257 06/10/2023 PLT 274 06/30/2022 Lab Results Component Value Date CREAT 0.77 09/24/2024 CREAT 0.72 08/19/2024 CREAT 0.74 02/08/2024 No components found for: TBILI3 Lab Results Component Value Date ALT 21 09/24/2024 ALT 27 08/19/2024 ALT 32 09/09/2023 Lab Results Component Value Date AST 35 09/24/2024 AST 31 08/19/2024 AST 26 09/09/2023 CrCl cannot be calculated (Unknown ideal weight.). 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 fibrillation) (hcc) half-way current use of anticoagulant Anticoagulation Episode Summary Current INR goal: 2.0-3.0 Assessment: INR result of 2.2 is therapeutic Plan: Current Warfarin Dosing As of 03/03/2025 Full warfarin instructions: 1.25 mg every Alma; 2.5 mg all other days Left voice message Advised patient to continue current weekly dose as noted above Next lab INR check scheduled on 04/07/2025 Patient advised to call the PAC with any medication changes, bleeding/bruising concerns, recent changes in vitamin k consumption, if any procedures are coming up, if they have been ill or in the hospital, and if they have missed any doses of warfarin. Jigna Arana [facility] Clinical Pharmacist, Pharmacy Anticoagulation Clinic Pharmacy Anticoagulation Clinic Pager: [phone]. Rene Schumacher [facility] 04/07/2025 3:17 PM Signed Patient was due to test INR today. Will continue to monitor for results. Follow up in one week if no results received. Patient's INR Goal range is - 2.0-3.0 PT INR (no units) Date Value 07/10/2024 2.5 12/13/2021 2.2 11/01/2021 2.2 INR (no units) Date Value 03/03/2025 2.2 01/27/2025 2.5 12/31/2024 2.5 Patient is in titration phase - No Patient has dosing provided until next INR - Yes Patient is on an injectable anticoagulant - No Rene Schumacher RPh Allergies As of Date: 03/03/2025 Noted Allergy Reaction SULFA (SULFONAMIDE ANTIBIOTICS) 08/28/2006 2 - Rash Comments: BLISTERS Date Reviewed: 01/09/2025 Reviewed by: Claire Smiley LPN - Fully Assessed Reason for Visit: Anticoagulation Telephone Fu [148] Cmt: INR Lab Result Primary Visit Diagnosis:PAF (paroxysmal atrial fibrillation) ([facility]) [I48.0] Other Visit Diagnosis:half-way current use of anticoagulant [Z79.01] Prescriptions as of 04/07/2025 - semaglutide (OZEMPIC) 0.25 mg or 0.5 mg (2 mg/3 mL) pen Inject 0.25 mg subcutaneously one time a week. Do not send to the pharmacy - receives through patient assistance program. Managed by [facility] pharmacy team - any order changes, route to?[facility] - insulin lispro (HUMALOG KWIKPEN INSULIN) 100 unit/mL Take 6 units before meals if pre-meal BG >150 mg/dL. Patient assistance medication - insulin glargine 100 unit/mL (3 mL) Inject 40 Units subcutaneously daily at bedtime. Patient assistance medication - clopidogrel (PLAVIX) 75 mg tablet Take 1 tablet by mouth once daily. - FLUoxetine (PROZAC) 40 mg capsule Take 1 capsule by mouth once daily. - IFEREX 150 150 mg iron capsule Take 1 capsule by mouth once daily. - metFORMIN ER (GLUCOPHAGE XR) 500 mg 24 hr tablet Take 2 tablets by mouth two times a day with meals. - metoprolol tartrate, short acting, (LOPRESSOR) 50 mg tablet Take 1 tablet by mouth two times a day. - rosuvastatin (CRESTOR) 5 mg tablet Take 1 tablet by mouth daily at bedtime. - warfarin (COUMADIN) 2.5 mg tablet Start with 2.5 mg daily except 1.25mg Thurs - L. acidophilus/Bifid. animalis (DAILY PROBIOTIC ORAL) Take 1 capsule by mouth once daily. - estradiol (ESTRACE) 0.01 % (0.1 mg/gram) vaginal cream Use 1 g vaginally two times a week. Apply before bed. Apply a pea-sized amount of cream to the vagina/vulva. - Biotin 10,000 mcg cap Take 10,000 mcg by mouth once daily. With Keratin (more content not included)... Normal [facility] PT panel Coag (PPP)on 2024 INR Coag (PPP) [Relative time] 2.2 {INR} High 0.9-1.3 [facility] Comment on above: Order Comment: Speci men Type: BLOOD SPECIMENOrdering Facility: [facility] Address: [address] [place] [address] Result Comment: Adela min K Antagonist (VKA) Therapeutic Range: INR 2 to 3 (Target INR of 2.5) Note: For patients treated with VKA drugs, such as warfarin, the [place] [employer] 2012 Guideline recommends a therapeutic INR range of 2 to 3 (target INR of 2.5). This recommendation includes high-risk patients with antiphospholipid syndrome with previous arterial or venous thromboembolism, current-generation mechanical or bioprosthetic aortic heart valve replacement. Note: Patients with mechanical aortic valve replacement and additional risk factors for thromboembolic events (atrial fibrillation, previous thromboembolism, LV dysfunction, hypercoagulable conditions) or an older generation mechanical AVR (i.e., ball in-Cage) or any mechanical MVR should have a INR therapeutic range of 2.5 to 3.5 (target INR of 3). Leroy GH, et al. Chest 2012, 141:7S-47S Sveta RA, et al. [facility] 2017, 70: 252-289 Performed By: #### 3 4528-0 ####[facility] [id number] [place] [id number] [place] PT Coag (PPP) [Time] 23.0 s High 9.7-13.0 [facility] Comment on above: Order Comment: Speci men Type: BLOOD SPECIMENOrdering Facility: [facility] Address: [address] [place] [address] Performed By: #### 3 4528-0 ####[facility] [id number] [place] [id number] [place] CNPKalyn 01-27-2025 CNPN Telephone (PHAMTE) CLEMENTWENDY Gutierrez ([id number]) 1955 F Date Time Provider Department 01/27/25 JIGNA ARANA During your visit today, we recorded the following information about you: Jigna Arana, [facility] 01/27/2025 4:25 PM Signed [facility] Ambulatory Pharmacy Anticoagulation Clinic Anticoagulation Episode Summary Anticoagulation Care Providers Provider Role Specialty Phone number Estephania Rodriguez MD Referring Internal Medicine [phone] Wendy Forte is a 69 year old year old female patient being evaluated today for a Telemanagement visit. Patient is currently on the following anticoagulant(s) Warfarin. Labs Lab Results Component Value Date INR 2.5 (H) 01/27/2025 INR 2.5 (H) 12/31/2024 INR 2.1 (H) 12/03/2024 Lab Results Component Value Date HB 12.9 09/09/2023 HB 11.7 06/10/2023 HB 12.5 06/30/2022 Lab Results Component Value Date HCT 40.6 09/09/2023 HCT 37.7 06/10/2023 HCT 38.8 06/30/2022 Lab Results Component Value Date PLT 270 09/09/2023 PLT 257 06/10/2023 PLT 274 06/30/2022 Lab Results Component Value Date CREAT 0.77 09/24/2024 CREAT 0.72 08/19/2024 CREAT 0.74 02/08/2024 No components found for: TBILI3 Lab Results Component Value Date ALT 21 09/24/2024 ALT 27 08/19/2024 ALT 32 09/09/2023 Lab Results Component Value Date AST 35 09/24/2024 AST 31 08/19/2024 AST 26 09/09/2023 CrCl cannot be calculated (Unknown ideal weight.). 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 Patient assistance medication - insulin glargine 100 unit/mL (3 mL) Inject 40 Units subcutaneously daily at bedtime. Patient assistance medication - clopidogrel (PLAVIX) 75 mg tablet Take 1 tablet by mouth once daily. - FLUoxetine (PROZAC) 40 mg capsule Take 1 capsule by mouth once daily. - IFEREX 150 150 mg iron capsule Take 1 capsule by mouth once daily. - metFORMIN ER (GLUCOPHAGE XR) 500 mg 24 hr tablet Take 2 tablets by mouth two times a day with meals. - metoprolol tartrate, short acting, (LOPRESSOR) 50 mg tablet Take 1 tablet by mouth two times a day. - rosuvastatin (CRESTOR) 5 mg tablet Take 1 tablet by mouth daily at bedtime. - warfarin (COUMADIN) 2.5 mg tablet Start with 2.5 mg daily except 1.25mg Thurs - semaglutide (OZEMPIC) 0.25 mg or 0.5 mg (2 mg/3 mL) pen Take 0.25mg weekly for 4 weeks then take 0.5mg weekly thereafter. Gets through [employer]. - L. acidophilus/Bifid. animalis (DAILY PROBIOTIC ORAL) Take 1 capsule by mouth once daily. - estradiol (ESTRACE) 0.01 % (0.1 mg/gram) vaginal cream Use 1 g vaginally two times a week. Apply before bed. Apply a pea-sized amount of cream to the vagina/vulva. - Biotin 10,000 mcg cap Take 10,000 mcg by mouth once daily. With Keratin 100 MG - blood sugar diagnostic (FREESTYLE TEST) test strip Check 4 time daily as directed. DX E11.65, Insulin: Yes - Lancets lancets Test blood sugar(s) 4 times daily as directed. Dx: diabetes E11.65. Insulin: Yes - insulin needles, DISPOSABLE, (PEN NEEDLE) 31 gauge x 5/16 ndle Use one needle per dose. One per day. - COMPOUNDED PRESCRIPTION Diabetic shoes with insoles. DX E11.65, E11,49 - COMPOUNDED PRESCRIPTION Hinged knee brace for left knee--Nestor Mehta OA Reaction Web Knee brace. Dx Knee pain and decreased mobility secondary to degenerative arthritis 715.96 - COMPOUNDED PRESCRIPTION ascensia lancets Meds Comments as of 02/21/2013: Problem List As Of Date 01/27/2025 Noted Resolved HTN (hypertension), benign [I10] Hyperlipidemia [E78.5] Type II diabetes mellitus, uncontrolled ([facility]) [* URINARY FREQUENCY [R35.0] PANIC DISORDER WITHOUT AGORAPHOBIA [F41.0] 07/21/2008 (more content not included)... Normal [facility] PT panel Coag (PPP)on 2024 INR Coag (PPP) [Relative time] 2.5 {INR} High 0.9-1.3 [facility] Comment on above: Order Comment: Speci men Type: BLOOD SPECIMENOrdering Facility: [facility] Address: [address] [place] [address] [place] [id number] Result Comment: Adela min K Antagonist (VKA) Therapeutic Range: INR 2 to 3 (Target INR of 2.5) Note: For patients treated with VKA drugs, such as warfarin, the [place] [employer] 2012 Guideline recommends a therapeutic INR range of 2 to 3 (target INR of 2.5). This recommendation includes high-risk patients with antiphospholipid syndrome with previous arterial or venous thromboembolism, current-generation mechanical or bioprosthetic aortic heart valve replacement. Note: Patients with mechanical aortic valve replacement and additional risk factors for thromboembolic events (atrial fibrillation, previous thromboembolism, LV dysfunction, hypercoagulable conditions) or an older generation mechanical AVR (i.e., ball in-Cage) or any mechanical MVR should have a INR therapeutic range of 2.5 to 3.5 (target INR of 3). Leroy GH, et al. Chest 2012, 141:7S-47S Sveta RA, et al. [facility] 2017, 70: 252-289 Performed By: #### 3 4528-0 ####[facility] [id number] [place] [address] [place] PT Coag (PPP) [Time] 25.5 s High 9.7-13.0 [facility] Comment on above: Order Comment: Speci men Type: BLOOD SPECIMENOrdering Facility: [facility] Address: [address] [place] [address] Performed By: #### 3 4528-0 ####[facility] [id number] [address] OF [facility] CNOVon 01-09-2025 CNOV Office Visit (INTMWS ) WENDY FORTE ([id number]) 1955 F Date Time Provider Department 01/09/25 4:20 PM ESTEPHANIA RODRIGUEZ INTMWS During your visit today, we recorded the following information about you: Pulse Respiration Blood pressure Weight 71/minute 16/minute 138/60 112.5 kg Estephania Rodriguez MD 01/10/2025 12:58 AM Signed This note was created using NoteWriter. Subjective Wendy Forte is a 69 year old female. Patient presents with: Follow Up: Due for colonoscopy Wendy is a 69-year-old female with a history of DM and fatty liver, presenting for follow-up on recent lab results and elastography. Wendy reports improvement in glycemic control, noting a decrease in the frequency of insulin use. She is currently on metformin and Ozempic, the latter of which she is taking at a low dose due to previous adverse effects. Recent lab results show an HbA1c of 8.4, down from previous levels. Weight is 242 lbs, with a slight increase noted. Wendy recently underwent an elastography, which indicated significant fibrosis. Previous liver function tests showed a slight elevation in alkaline phosphatase (141 U/L, with a high normal of 123 U/L), down from 153 U/L. AST and ALT levels were within normal limits. A CT scan performed in February 2023 revealed hepatic steatosis. Kidney function tests from September showed a BUN level that was slightly elevated, but creatinine levels were normal, and the estimated glomerular filtration rate was 84 mL/min/1.73 m?. Wendy denies any current symptoms related to liver or kidney function. PAST MEDICAL HISTORY Diagnosis Date Adjustment disorder with depressed mood Bladder wall thickening Diverticulitis 2022 Mild Hyperlipidemia 06/13/2009 Mixed stress and urge incontinence Mixed stress and urge incontinence OAB (overactive bladder) Obesity, morbid, BMI 40.0-49.9 (HCC) Other and unspecified hyperlipidemia Type II or unspecified type diabetes mellitus without mention of complication, not stated as uncontrolled Unspecified essential hypertension Urinary frequency Current Outpatient Medications Medication Sig insulin lispro (HUMALOG KWIKPEN INSULIN) 100 unit/mL Take 6 units before meals if pre-meal BG >150 mg/dL. Patient assistance medication insulin glargine 100 unit/mL (3 mL) Inject 40 Units subcutaneously daily at bedtime. Patient assistance medication clopidogrel (PLAVIX) 75 mg tablet Take 1 tablet by mouth once daily. FLUoxetine (PROZAC) 40 mg capsule Take 1 capsule by mouth once daily. IFEREX 150 150 mg iron capsule Take 1 capsule by mouth once daily. metFORMIN ER (GLUCOPHAGE XR) 500 mg 24 hr tablet Take 2 tablets by mouth two times a day with meals. metoprolol tartrate, short acting, (LOPRESSOR) 50 mg tablet Take 1 tablet by mouth two times a day. rosuvastatin (CRESTOR) 5 mg tablet Take 1 tablet by mouth daily at bedtime. warfarin (COUMADIN) 2.5 mg tablet Start with 2.5 mg daily except 1.25mg Thurs semaglutide (OZEMPIC) 0.25 mg or 0.5 mg (2 mg/3 mL) pen Take 0.25mg weekly for 4 weeks then take 0.5mg weekly thereafter. Gets through [employer]. L. acidophilus/Bifid. animalis (DAILY PROBIOTIC ORAL) Take 1 capsule by mouth once daily. estradiol (ESTRACE) 0.01 % (0.1 mg/gram) vaginal cream Use 1 g vaginally two times a week. Apply before bed. Apply a pea-sized amount of cream to the vagina/vulva. Biotin 10,000 mcg cap Take 10,000 mcg by mouth once daily. With Keratin 100 MG Lancets lancets Test blood sugar(s) 4 times daily as directed. Dx: diabetes E11.65. Insulin: Yes insulin needles, DISPOSABLE, (PEN NEEDLE) 31 gauge x 5/16 ndle Use one needle per dose. One per day. COMPOUNDED PRESCRIPTION Diabetic shoes with insoles. DX E11.65, E11,49 COMPOUNDED PRESCRIPTION ascensia lancets blood sugar diagnostic (FREESTYLE TEST) test strip Check 4 time daily as directed. DX E11.65, Insulin: Yes COMPOUNDED PRESCRIPTION Hinged knee brace for left knee--Don Janine OA Reaction Web Knee brace. Dx Knee pain and decreased mobility secondary to degenerative arthritis 715.96 (Patient not taking: Reported on 10/06/2022) No current facility-administered medications for this visit. Review of Systems Objective BP 138/60 Pulse 71 Resp 16 Wt 112.5 kg (248 lb 0.3 oz) SpO2 98% BMI 41.27 kg/m? Physical Exam Constitutional: Appearance: Normal appearance. HENT: Head: Normocephalic. Eyes: Conjunctiva/sclera: Conjunctivae normal. Cardiovascular: Rate and Rhythm: Normal rate and regular rhythm. Heart sounds: Normal heart sounds. Pulmonary: Effort: Pulmonary effort is normal. Breath sounds: Normal breath sounds. Musculoskeletal: Right lower le+ Pitting Edema present. Left lower le+ Pitting Edema present. Skin: General: Skin is warm and dry. Neurological: General: No focal deficit present. Mental Status: She is alert and oriented to (more content not included)... Normal [facility] 01-02-2025 CNPN Telephone (PHAMTE) FORTEWENDY PASTRANA ([id number]) 1955 F Date Time Provider Department 01/02/25 JW ROBERTS PHAELIAJH During your visit today, we recorded the following information about you: Jw Roberts RPh 01/02/2025 10:43 AM Signed [facility] Ambulatory Pharmacy Anticoagulation Clinic Anticoagulation Episode Summary Anticoagulation Care Providers Provider Role Specialty Phone number Estephania Rodriguez MD Referring Internal Medicine [phone] Wendy Elliottman is a 69 year old year old female patient being evaluated today for a Telemanagement visit. Patient is currently on the following anticoagulant(s) Warfarin. Labs PT INR (no units) Date Value 07/10/2024 2.5 12/13/2021 2.2 11/01/2021 2.2 INR (no units) Date Value 12/31/2024 2.5 12/03/2024 2.1 11/05/2024 3.4 CrCl cannot be calculated (Unknown ideal weight.). 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: Anticoagulation Episode Summary Current INR goal: 2.0-3.0 Assessment: INR result of 2.5 is therapeutic Plan: Current Warfarin Dosing As of 01/02/2025 Full warfarin instructions: 1.25 mg every Alma; 2.5 mg all other days Left voice message Advised patient to continue current weekly dose as noted above Next INR check due on 02/06/2025 Patient instructed to call Pharmaceutical Anticoagulation Clinic at [phone] with any questions or concerns. Jw Roberts [facility] Clinical Pharmacist, Pharmacy Anticoagulation Clinic Pharmacy Anticoagulation Clinic Pager: [phone] Allergies As of Date: 01/02/2025 Noted Allergy Reaction SULFA (SULFONAMIDE ANTIBIOTICS) 08/28/2006 2 - Rash Comments: BLISTERS Date Reviewed: 11/10/2024 Reviewed by: Glory Collazo LPN - Fully Assessed Reason for Visit: Anticoagulation Telephone Fu [148] Cmt: Lab INR Result Prescriptions as of 01/02/2025 - insulin lispro (HUMALOG KWIKPEN INSULIN) 100 unit/mL Take 6 units before meals if pre-meal BG >150 mg/dL. Patient assistance medication - insulin glargine 100 unit/mL (3 mL) Inject 40 Units subcutaneously daily at bedtime. Patient assistance medication - clopidogrel (PLAVIX) 75 mg tablet Take 1 tablet by mouth once daily. - FLUoxetine (PROZAC) 40 mg capsule Take 1 capsule by mouth once daily. - IFEREX 150 150 mg iron capsule Take 1 capsule by mouth once daily. - metFORMIN ER (GLUCOPHAGE XR) 500 mg 24 hr tablet Take 2 tablets by mouth two times a day with meals. - metoprolol tartrate, short acting, (LOPRESSOR) 50 mg tablet Take 1 tablet by mouth two times a day. - rosuvastatin (CRESTOR) 5 mg tablet Take 1 tablet by mouth daily at bedtime. - warfarin (COUMADIN) 2.5 mg tablet Start with 2.5 mg daily except 1.25mg Thurs - semaglutide (OZEMPIC) 0.25 mg or 0.5 mg (2 mg/3 mL) pen Take 0.25mg weekly for 4 weeks then take 0.5mg weekly thereafter. Gets through [employer]. - L. acidophilus/Bifid. animalis (DAILY PROBIOTIC ORAL) Take 1 capsule by mouth once daily. - estradiol (ESTRACE) 0.01 % (0.1 mg/gram) vaginal cream Use 1 g vaginally two times a week. Apply before bed. Apply a pea-sized amount of cream to the vagina/vulva. - Biotin 10,000 mcg cap Take 10,000 mcg by mouth once daily. With Keratin 100 MG - blood sugar diagnostic (FREESTYLE TEST) test strip Check 4 time daily as directed. DX E11.65, Insulin: Yes - Lancets lancets Test blood sugar(s) 4 times daily as directed. Dx: diabetes E11.65. Insulin: Yes - insulin needles, DISPOSABLE, (PEN NEEDLE) 31 gauge x 5/16 ndle Use one needle per dose. One per day. - COMPOUNDED PRESCRIPTION Diabetic shoes with insoles. DX E11.65, E11,49 - COMPOUNDED PRESCRIPTION Hinged knee brace for left knee--eNstor Matsony OA Reaction Web Knee brace. Dx Knee pain and decreased mobility secondary to degenerative arthritis 715.96 - COMPOUNDED PRESCRIPTION [facility] Meds Comments as of 02/21/2013: Problem List As Of Date 01/02/2025 Noted Resolved HTN (hypertension), benign [I10] Hyperlipidemia [E78.5] Type II diabetes mellitus, uncontrolled (HCC) [* URINARY FREQUENCY [R35.0] PANIC DISORDER WITHOUT AGORAPHOBIA [F41.0] 07/21/2008 GERD (gastroesophageal reflux disease) [K21.9] 04/05/2012 Heart palpitations [R00.2] 04/05/2012 Obesity, morbid, BMI 40.0-49.9 (HCC) [E66.01] Type 2 diabetes mellitus with hyperglycemia, wi*10/30/2014 PAF (paroxysmal atrial fibrillation) ([facility]) [I48*11/01/2021 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] 06/21/2022 Recurrent major depressive disorder, in full re*05/18/2023 Encounter Status:Closed by JW ROBERTS on 01/02/25 Normal [facility] HbA1c (Bld)on 12-31-2024 Average glucose Estimated from glycated hemoglobin (Bld) [Mass/Vol] 194 mg/dL Normal [facility] Comment on above: Order Comment: Akil gonzalez Type: BLOOD SPECIMENOrdering Facility: [facility] Address: [address] [place] [address] Result Comment: eAG: (Estimated average glucose) is a calculated value from HgbA1c and is insurance claim representative of the average blood glucose level in the last 2-3 month period. Performed By: #### 5 5454-3 ####[facility] [id number] [place] [address] [place] HbA1c (Bld) [Mass fraction] 8.4 % High 4.3-5.6 [facility] Comment on above: Order Comment: Akil gonzalez Type: BLOOD SPECIMENOrdering Facility: [facility] Address: [address] [place] [address] Result Comment: [place] Diabetes Association guidelines indicate that patients with HgbA1c in the range 5.7-6.4% are at increased risk for development of diabetes, and intervention by lifestyle modification may be beneficial. HgbA1c greater or equal to 6.5% is considered diagnostic of diabetes. Performed By: #### 5 5454-3 ####[facility] [id number] [address] OF [facility] PT panel Coag (PPP)on 2024 INR Coag (PPP) [Relative time] 2.5 {INR} High 0.9-1.3 [facility] Comment on above: Order Comment: Akil gonzalez Type: BLOOD SPECIMENOrdering Facility: [facility] Address: [address] [place] [address] Result Comment: Adela min K Antagonist (VKA) Therapeutic Range: INR 2 to 3 (Target INR of 2.5) Note: For patients treated with VKA drugs, such as warfarin, the [place] [employer] 2012 Guideline recommends a therapeutic INR range of 2 to 3 (target INR of 2.5). This recommendation includes high-risk patients with antiphospholipid syndrome with previous arterial or venous thromboembolism, current-generation mechanical or bioprosthetic aortic heart valve replacement. Note: Patients with mechanical aortic valve replacement and additional risk factors for thromboembolic events (atrial fibrillation, previous thromboembolism, LV dysfunction, hypercoagulable conditions) or an older generation mechanical AVR (i.e., ball in-Cage) or any mechanical MVR should have a INR therapeutic range of 2.5 to 3.5 (target INR of 3). Leroy GH, et al. Chest 2012, 141:7S-47S Sveta RA, et al. [facility] 2017, 70: 252-289 Performed By: #### 3 4528-0 ####[facility] [id number] [place] [id number] [place] PT Coag (PPP) [Time] 25.2 s High 9.7-13.0 [facility] Comment on above: Order Comment: Akil gonzalez Type: BLOOD SPECIMENOrdering Facility: [facility] Address: [address] [place] [address] Performed By: #### 3 4528-0 ####[facility] [id number] [facility] [place] [id number] [place] ABD Limited w/ Elastographyo n 12-30-2024 ABD Limited w/ Elastography [facility] [address] [place] [address] ABD Limited w/ Elastography MR#: [id number] Acct: [id number] Name: WENDY FORTE Rep #: [id number] : 1955 F 69 From: Gabo pope MD PCP: Dr. Estephania Rodriguez MD Status: REG CLI Study: ABD Limited w/ Elastography Date of Exam: 12/07 01/29 Exam# [id number] Ordering Dr: Estephania Rodriguez MD PROCEDURE: ABD LIMITED W/ ELASTOGRAPHY REASON FOR EXAM: MASLD COMPARISON: None. TECHNIQUE: Right upper quadrant abdominal ultrasound. Oc ElastQ Imaging shear wave elastography for non- invasive assessment of liver tissue stiffness. Oc EPIQ Elite. FINDINGS: LIVER: Size: Enlarged (hepatomegaly) Length: 19.8 cm Echotexture: Diffusely echogenic suggesting fatty infiltration Contour: Normal Lesions: None identified Elastography: EQI Med: 18.3 kPa EQI Med Alexander: 2.43 m/s IQR/Med: 60 %* GALLBLADDER: Surgically absent. COMMON BILE DUCT: Dilated measuring up to 9 mm. PANCREAS: Normal Visualized portions of the right kidney are unremarkable. No right upper quadrant ascites. US/ABD Limited w/ Elastography IMPRESSION: SEVERE HEPATIC FIBROSIS / CIRRHOSIS Hepatomegaly. Reference Values: SRU <1.37 m/s (5.7kPa): No to mild fibrosis 1.37 m/s - 2.2 m/s: Moderate to severe fibrosis >2.2 m/s (15kPa): Significant fibrosis / cirrhosis METAVIR Score F2 or higher: 1.34 m/s (5.7kPa) F3 or higher: 1.55 m/s (7.3kPa) F4: 1.80 m/s (10kPa) * If the IQR/Med is >30%, the variance in the measurements is a large and the accuracy of the measurement may be in question. Reading Location: [place] [address] CC: Dr. Estephania Rodriguez MD Final Cleaner: Signed [facility] 12-22-2024 CNP Telephone (INTMWS) WENDY FORTE ([id number]) 1955 F Date Time Provider Department 12/22/24 ESTEPHANIA RODRIGUEZ INTBrandieWS During your visit today, we recorded the following information about you: Sharonda Alcantara LPN 12/22/2024 11:13 AM Signed Rec'd 5 boxes of ozempic 0.25mg,0.5mg 1X3ml prefilled pen Lot number [id number] and exp date 06/06/27. Sharonda Alcantara LPN 12/22/2024 2:14 PM Signed This is in the fridge on the left side. Pt says she will pick this up the last week of the month. Sharonda Alcantara LPN 01/10/2025 12:12 PM Signed Pt picked up at 01/09/25 appt. Allergies As of Date: 12/22/2024 Noted Allergy Reaction SULFA (SULFONAMIDE ANTIBIOTICS) 08/28/2006 2 - Rash Comments: BLISTERS Date Reviewed: 11/10/2024 Reviewed by: Glory Collazo LPN - Fully Assessed Reason for Visit: rec'd 5 boxes of ozempic [Other] Prescriptions as of 01/10/2025 - insulin lispro (HUMALOG KWIKPEN INSULIN) 100 unit/mL Take 6 units before meals if pre-meal BG >150 mg/dL. Patient assistance medication - insulin glargine 100 unit/mL (3 mL) Inject 40 Units subcutaneously daily at bedtime. Patient assistance medication - clopidogrel (PLAVIX) 75 mg tablet Take 1 tablet by mouth once daily. - FLUoxetine (PROZAC) 40 mg capsule Take 1 capsule by mouth once daily. - IFEREX 150 150 mg iron capsule Take 1 capsule by mouth once daily. - metFORMIN ER (GLUCOPHAGE XR) 500 mg 24 hr tablet Take 2 tablets by mouth two times a day with meals. - metoprolol tartrate, short acting, (LOPRESSOR) 50 mg tablet Take 1 tablet by mouth two times a day. - rosuvastatin (CRESTOR) 5 mg tablet Take 1 tablet by mouth daily at bedtime. - warfarin (COUMADIN) 2.5 mg tablet Start with 2.5 mg daily except 1.25mg Thurs - semaglutide (OZEMPIC) 0.25 mg or 0.5 mg (2 mg/3 mL) pen Take 0.25mg weekly for 4 weeks then take 0.5mg weekly thereafter. Gets through [employer]. - L. acidophilus/Bifid. animalis (DAILY PROBIOTIC ORAL) Take 1 capsule by mouth once daily. - estradiol (ESTRACE) 0.01 % (0.1 mg/gram) vaginal cream Use 1 g vaginally two times a week. Apply before bed. Apply a pea-sized amount of cream to the vagina/vulva. - Biotin 10,000 mcg cap Take 10,000 mcg by mouth once daily. With Keratin 100 MG - blood sugar diagnostic (FREESTYLE TEST) test strip Check 4 time daily as directed. DX E11.65, Insulin: Yes - Lancets lancets Test blood sugar(s) 4 times daily as directed. Dx: diabetes E11.65. Insulin: Yes - insulin needles, DISPOSABLE, (PEN NEEDLE) 31 gauge x 5/16 ndle Use one needle per dose. One per day. - COMPOUNDED PRESCRIPTION Diabetic shoes with insoles. DX E11.65, E11,49 - COMPOUNDED PRESCRIPTION Hinged knee brace for left knee--Don Janine OA Reaction Web Knee brace. Dx Knee pain and decreased mobility secondary to degenerative arthritis 715.96 - COMPOUNDED PRESCRIPTION [facility] Meds Comments as of 02/21/2013: Problem List As Of Date 12/22/2024 Noted Resolved HTN (hypertension), benign [I10] Hyperlipidemia [E78.5] Type II diabetes mellitus, uncontrolled (HCC) [* URINARY FREQUENCY [R35.0] PANIC DISORDER WITHOUT AGORAPHOBIA [F41.0] 07/21/2008 GERD (gastroesophageal reflux disease) [K21.9] 04/05/2012 Heart palpitations [R00.2] 04/05/2012 Obesity, morbid, BMI 40.0-49.9 ([facility]) [E66.01] Type 2 diabetes mellitus with hyperglycemia, wi*10/30/2014 PAF (paroxysmal atrial fibrillation) ([facility]) [I48*11/01/2021 half-way current use of anticoagulant [Z79.01] 06/21/2022 Recurrent major depressive disorder, in full re*05/18/2023 Encounter Status:Closed by SHARONDA ALCANTARA on 01/10/25 [facility] Jose 12-05-2024 CNPN Telephone (PHAMTE) WENDY FORTE ([id number]) 1955 F Date Time Provider Department 12/05/24 JW ROBERTS During your visit today, we recorded the following information about you: Jw Roberts holley 12/05/2024 9:57 AM Signed [facility] Ambulatory Pharmacy Anticoagulation Clinic Anticoagulation Episode Summary Anticoagulation Care Providers Provider Role Specialty Phone number Estephania Rodriguez MD Referring Internal Medicine [phone] Wendy Forte is a 69 year old year old female patient being evaluated today for a Telemanagement visit. Patient is currently on the following anticoagulant(s) Warfarin. Labs PT INR (no units) Date Value 07/10/2024 2.5 12/13/2021 2.2 11/01/2021 2.2 INR (no units) Date Value 12/03/2024 2.1 11/05/2024 3.4 09/24/2024 2.2 CrCl cannot be calculated (Unknown ideal weight.). 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: Anticoagulation Episode Summary Current INR goal: 2.0-3.0 Assessment: INR result of 2.1 is therapeutic Plan: Current Warfarin Dosing As of 12/05/2024 Full warfarin instructions: 1.25 mg every Alma; 2.5 mg all other days Left voice message Advised patient to continue current weekly dose as noted above Next INR check due on 01/09/2025 Patient instructed to call Pharmaceutical Anticoagulation Clinic at [phone] with any questions or concerns. Jw Roberts [facility] Clinical Pharmacist, Pharmacy Anticoagulation Clinic Pharmacy Anticoagulation Clinic Pager: [phone] Allergies As of Date: 12/05/2024 Noted Allergy Reaction SULFA (SULFONAMIDE ANTIBIOTICS) 08/28/2006 2 - Rash Comments: BLISTERS Date Reviewed: 11/10/2024 Reviewed by: Glory Collazo LPN - Fully Assessed Reason for Visit: Anticoagulation Telephone Fu [148] Cmt: Lab INR Result Prescriptions as of 12/05/2024 - insulin glargine 100 unit/mL (3 mL) Inject 40 Units subcutaneously daily at bedtime. Patient assistance medication - insulin lispro (HUMALOG KWIKPEN INSULIN) 100 unit/mL Take 6-10 units before meals if pre-meal BG >150 mg/dL. Patient assistance medication - clopidogrel (PLAVIX) 75 mg tablet Take 1 tablet by mouth once daily. - FLUoxetine (PROZAC) 40 mg capsule Take 1 capsule by mouth once daily. - IFEREX 150 150 mg iron capsule Take 1 capsule by mouth once daily. - metFORMIN ER (GLUCOPHAGE XR) 500 mg 24 hr tablet Take 2 tablets by mouth two times a day with meals. - metoprolol tartrate, short acting, (LOPRESSOR) 50 mg tablet Take 1 tablet by mouth two times a day. - rosuvastatin (CRESTOR) 5 mg tablet Take 1 tablet by mouth daily at bedtime. - warfarin (COUMADIN) 2.5 mg tablet Start with 2.5 mg daily except 1.25mg Thurs - semaglutide (OZEMPIC) 0.25 mg or 0.5 mg (2 mg/3 mL) pen Take 0.25mg weekly for 4 weeks then take 0.5mg weekly thereafter. Gets through [employer]. - L. acidophilus/Bifid. animalis (DAILY PROBIOTIC ORAL) Take 1 capsule by mouth once daily. - estradiol (ESTRACE) 0.01 % (0.1 mg/gram) vaginal cream Use 1 g vaginally two times a week. Apply before bed. Apply a pea-sized amount of cream to the vagina/vulva. - Biotin 10,000 mcg cap Take 10,000 mcg by mouth once daily. With Keratin 100 MG - blood sugar diagnostic (FREESTYLE TEST) test strip Check 4 time daily as directed. DX E11.65, Insulin: Yes - Lancets lancets Test blood sugar(s) 4 times daily as directed. Dx: diabetes E11.65. Insulin: Yes - insulin needles, DISPOSABLE, (PEN NEEDLE) 31 gauge x 5/16 ndle Use one needle per dose. One per day. - COMPOUNDED PRESCRIPTION Diabetic shoes with insoles. DX E11.65, E11,49 - COMPOUNDED PRESCRIPTION Hinged knee brace for left knee--Don Janine OA Reaction Web Knee brace. Dx Knee pain and decreased mobility secondary to degenerative arthritis 715.96 - COMPOUNDED PRESCRIPTION [facility] Meds Comments as of 02/21/2013: Problem List As Of Date 12/05/2024 Noted Resolved HTN (hypertension), benign [I10] Hyperlipidemia [E78.5] Type II diabetes mellitus, uncontrolled (HCC) [* URINARY FREQUENCY [R35.0] PANIC DISORDER WITHOUT AGORAPHOBIA [F41.0] 07/21/2008 GERD (gastroesophageal reflux disease) [K21.9] 04/05/2012 Heart palpitations [R00.2] 04/05/2012 Obesity, morbid, BMI 40.0-49.9 ([facility]) [E66.01] Type 2 diabetes mellitus with hyperglycemia, wi*10/30/2014 PAF (paroxysmal atrial fibrillation) ([facility]) [I48*11/01/2021 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] 06/21/2022 Recurrent major depressive disorder, in full re*05/18/2023 Encounter Status:Closed by JW ROBERTS on 12/05/24 Normal [facility] PT panel Coag (PPP)on 2024 INR Coag (PPP) [Relative time] 2.1 {INR} High 0.9-1.3 [facility] Comment on above: Order Comment: Speci men Type: BLOOD SPECIMENOrdering Facility: [facility] Address: [address] [place] [address] Result Comment: Adela min K Antagonist (VKA) Therapeutic Range: INR 2 to 3 (Target INR of 2.5) Note: For patients treated with VKA drugs, such as warfarin, the [place] [employer] 2012 Guideline recommends a therapeutic INR range of 2 to 3 (target INR of 2.5). This recommendation includes high-risk patients with antiphospholipid syndrome with previous arterial or venous thromboembolism, current-generation mechanical or bioprosthetic aortic heart valve replacement. Note: Patients with mechanical aortic valve replacement and additional risk factors for thromboembolic events (atrial fibrillation, previous thromboembolism, LV dysfunction, hypercoagulable conditions) or an older generation mechanical AVR (i.e., ball in-Cage) or any mechanical MVR should have a INR therapeutic range of 2.5 to 3.5 (target INR of 3). Leroy GH, et al. Chest 2012, 141:7S-47S Sveta RA, et al. [facility] 2017, 70: 252-289 Performed By: #### 3 4528-0 ####[facility] [id number] [place] [address] [place] PT Coag (PPP) [Time] 21.4 s High 9.7-13.0 [facility] Comment on above: Order Comment: Akil gonzalez Type: BLOOD SPECIMENOrdering Facility: [facility] Address: [address] [place] [address] Performed By: #### 3 4528-0 ####[facility] [id number] [place] [id number] [place] Jose 11-21-2024 DODIE Telephone (PHMEWO) WENDY FORTE ([id number]) 1955 F Date Time Provider Department 11/21/24 CORRIE EDWARDSILY PHMEWO During your visit today, we recorded the following information about you: BovinaJake, [facility] 11/21/2024 9:01 AM Signed Called patient and informed her that [employer] PAP was approved for 2024, she appreciated the call. She states she is still having a cough, is considering going to urgent care to get a cough medicine. I suggested trying OTC dextromethorphan (sugar-free) and drinking lot liquids/tea to see if that helps. If no improvement, suggested calling PCP office to see if can have a script for cough medicine. She also states that her sugars have been in the 120s and she feels shaky. Did NOT yet start Ozempic. Is taking Basaglar 40 units nightly. Hasn't been taking Humalog much since recovering from illness. Advised to temporarily reduce Basaglar to 38 units for a few days, and if still feeling shaky, then reduce further to 36 units. If no improvement, advised she reach out to me. She expressed understanding and had no further questions. Jake Edwards, PharmD, BCPS Primary Care Clinical Pharmacist Allergies As of Date: 11/21/2024 Noted Allergy Reaction SULFA (SULFONAMIDE ANTIBIOTICS) 08/28/2006 2 - Rash Comments: BLISTERS Date Reviewed: 11/10/2024 Reviewed by: Glory Collazo LPN - Fully Assessed Reason for Visit: Patient Update [1234] Prescriptions as of 11/21/2024 - insulin glargine 100 unit/mL (3 mL) Inject 40 Units subcutaneously daily at bedtime. Patient assistance medication - insulin lispro (HUMALOG KWIKPEN INSULIN) 100 unit/mL Take 6-10 units before meals if pre-meal BG >150 mg/dL. Patient assistance medication - clopidogrel (PLAVIX) 75 mg tablet Take 1 tablet by mouth once daily. - FLUoxetine (PROZAC) 40 mg capsule Take 1 capsule by mouth once daily. - IFEREX 150 150 mg iron capsule Take 1 capsule by mouth once daily. - metFORMIN ER (GLUCOPHAGE XR) 500 mg 24 hr tablet Take 2 tablets by mouth two times a day with meals. - metoprolol tartrate, short acting, (LOPRESSOR) 50 mg tablet Take 1 tablet by mouth two times a day. - rosuvastatin (CRESTOR) 5 mg tablet Take 1 tablet by mouth daily at bedtime. - warfarin (COUMADIN) 2.5 mg tablet Start with 2.5 mg daily except 1.25mg Thurs - semaglutide (OZEMPIC) 0.25 mg or 0.5 mg (2 mg/3 mL) pen Take 0.25mg weekly for 4 weeks then take 0.5mg weekly thereafter. Gets through [employer]. - L. acidophilus/Bifid. animalis (DAILY PROBIOTIC ORAL) Take 1 capsule by mouth once daily. - estradiol (ESTRACE) 0.01 % (0.1 mg/gram) vaginal cream Use 1 g vaginally two times a week. Apply before bed. Apply a pea-sized amount of cream to the vagina/vulva. - Biotin 10,000 mcg cap Take 10,000 mcg by mouth once daily. With Keratin 100 MG - blood sugar diagnostic (FREESTYLE TEST) test strip Check 4 time daily as directed. DX E11.65, Insulin: Yes - Lancets lancets Test blood sugar(s) 4 times daily as directed. Dx: diabetes E11.65. Insulin: Yes - insulin needles, DISPOSABLE, (PEN NEEDLE) 31 gauge x 5/16 ndle Use one needle per dose. One per day. - COMPOUNDED PRESCRIPTION Diabetic shoes with insoles. DX E11.65, E11,49 - COMPOUNDED PRESCRIPTION Hinged knee brace for left knee--Nestor Mehta OA Reaction Web Knee brace. Dx Knee pain and decreased mobility secondary to degenerative arthritis 715.96 - COMPOUNDED PRESCRIPTION [facility] Meds Comments as of 02/21/2013: Problem List As Of Date 11/21/2024 Noted Resolved HTN (hypertension), benign [I10] Hyperlipidemia [E78.5] Type II diabetes mellitus, uncontrolled ([facility]) [* URINARY FREQUENCY [R35.0] PANIC DISORDER WITHOUT AGORAPHOBIA [F41.0] 07/21/2008 GERD (gastroesophageal reflux disease) [K21.9] 04/05/2012 Heart palpitations [R00.2] 04/05/2012 Obesity, morbid, BMI 40.0-49.9 ([facility]) [E66.01] Type 2 diabetes mellitus with hyperglycemia, wi*10/30/2014 PAF (paroxysmal atrial fibrillation) ([facility]) [I48*11/01/2021 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 She is planning to reschedule it and have done in the next couple of weeks. She wanted me to inform PCP as an FYI. Forwarding to Dr. Rodriguez as FYI only. Jake Edwards, PharmD, [facility] Primary Care Clinical Pharmacist Allergies As of Date: 11/14/2024 Noted Allergy Reaction SULFA (SULFONAMIDE ANTIBIOTICS) 08/28/2006 2 - Rash Comments: BLISTERS Date Reviewed: 11/10/2024 Reviewed by: Glory Collazo LPN - Fully Assessed Reason for Visit: Patient Update [1234] Cmt: Liver ultrasound Prescriptions as of 11/14/2024 - insulin glargine 100 unit/mL (3 mL) Inject 40 Units subcutaneously daily at bedtime. Patient assistance medication - doxycycline monohydrate 100 mg tablet Take 1 tablet by mouth two times a day for 7 days. - amoxicillin-clavulana te potassium (AUGMENTIN) 875-125 mg per tablet Take 1 tablet by mouth two times a day for 7 days. - insulin lispro (HUMALOG KWIKPEN INSULIN) 100 unit/mL Take 6-10 units before meals if pre-meal BG >150 mg/dL. Patient assistance medication - clopidogrel (PLAVIX) 75 mg tablet Take 1 tablet by mouth once daily. - FLUoxetine (PROZAC) 40 mg capsule Take 1 capsule by mouth once daily. - IFEREX 150 150 mg iron capsule Take 1 capsule by mouth once daily. - metFORMIN ER (GLUCOPHAGE XR) 500 mg 24 hr tablet Take 2 tablets by mouth two times a day with meals. - metoprolol tartrate, short acting, (LOPRESSOR) 50 mg tablet Take 1 tablet by mouth two times a day. - rosuvastatin (CRESTOR) 5 mg tablet Take 1 tablet by mouth daily at bedtime. - warfarin (COUMADIN) 2.5 mg tablet Start with 2.5 mg daily except 1.25mg Thurs - semaglutide (OZEMPIC) 0.25 mg or 0.5 mg (2 mg/3 mL) pen Take 0.25mg weekly for 4 weeks then take 0.5mg weekly thereafter. Gets through [employer]. - L. acidophilus/Bifid. animalis (DAILY PROBIOTIC ORAL) Take 1 capsule by mouth once daily. - estradiol (ESTRACE) 0.01 % (0.1 mg/gram) vaginal cream Use 1 g vaginally two times a week. Apply before bed. Apply a pea-sized amount of cream to the vagina/vulva. - Biotin 10,000 mcg cap Take 10,000 mcg by mouth once daily. With Keratin 100 MG - blood sugar diagnostic (FREESTYLE TEST) test strip Check 4 time daily as directed. DX E11.65, Insulin: Yes - Lancets lancets Test blood sugar(s) 4 times daily as directed. Dx: diabetes E11.65. Insulin: Yes - insulin needles, DISPOSABLE, (PEN NEEDLE) 31 gauge x 5/16 ndle Use one needle per dose. One per day. - COMPOUNDED PRESCRIPTION Diabetic shoes with insoles. DX E11.65, E11,49 - COMPOUNDED PRESCRIPTION Hinged knee brace for left knee--Nestor Mehta OA Reaction Web Knee brace. Dx Knee pain and decreased mobility secondary to degenerative arthritis 715.96 - COMPOUNDED PRESCRIPTION ascensia lancets Meds Comments as of 02/21/2013: Problem List As Of Date 11/14/2024 Noted Resolved HTN (hypertension), benign [I10] Hyperlipidemia [E78.5] Type II diabetes mellitus, uncontrolled (HCC) [* URINARY FREQUENCY [R35.0] PANIC DISORDER WITHOUT AGORAPHOBIA [F41.0] 07/21/2008 GERD (gastroesophageal reflux disease) [K21.9] 04/05/2012 Heart palpitations [R00.2] 04/05/2012 Obesity, morbid, BMI 40.0-49.9 ([facility]) [E66.01] Type 2 diabetes mellitus with hyperglycemia, wi*10/30/2014 PAF (paroxysmal atrial fibrillation) ([facility]) [I48*11/01/2021 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] 06/21/2022 Recurrent major depressive disorder, in full re*05/18/2023 Encounter Status:Closed by JAKE EDWARDS on 11/14/24 Normal [facility] CNOVon 11-10-2024 CNOV Office Visit (UCWSTR ) WENDY FORTE ([id number]) 1955 F Date Time Provider Department 11/10/24 2:30 PM BRAYDEN CHAPARRO [facility] During your visit today, we recorded the following information about you: Temperature Pulse Respiration Blood pressure 98.5 degrees 73/minute 24/minute 172/74 Weight 110 kg Brayden Chaparro APRN.CENTRAL OFFICE INSTALLER 11/10/2024 3:35 PM Signed CC: Patient presents with: Cough: Chest congestion, wheeze, SOB, headache, lower R back and front R side pain with cough, head congestion, x 1 week HPI: Wendy Forte is a 69 year old female who presents to the office with complaint of chest congestion, head congestion, and cough, productive for a week. Symptoms are worsening Associated symptoms includes wheezing and dyspnea. Denies nausea, vomiting , and diarrhea. Treatments tried include nothing so far. with no relief of symptoms. Sick contacts: unknown. History of asthma, frequent episodes of bronchitis, chronic bronchitis, bronchiectasis or COPD: No Smoker: No Seasonal/environmenta l allergies: No The ROS is otherwise negative. The patient's pmh, medications, allergies, and past visits are reviewed. PHYSICAL EXAM: BP 172/74 Pulse 73 Temp 36.9 ?C (98.5 ?F) Resp 24 Wt 110 kg (242 lb 8.1 oz) SpO2 97% BMI 40.36 kg/m? General appearance: alert, cooperative, pleasant, in no acute distress Head: Normocephalic Eyes: EOM's intact, conjunctiva pink and moist, no icterus, sclera white, non-injected Ears: Right ear: External ear/canal- Normal, TM - clear with good landmarks. Left ear: External ear/canal- Normal, TM - clear with good landmarks Oropharynx:moist without lesions, No erythema, exudates or tonsillar hypertrophy. Heart: Negative. RRR without obvious murmur, gallop, or rubs. No ectopy. Lungs: wheezing diffusely PAST MEDICAL HISTORY Diagnosis Date Adjustment disorder with depressed mood Bladder wall thickening Diverticulitis 2022 Mild Hyperlipidemia 06/13/2009 Mixed stress and urge incontinence Mixed stress and urge incontinence OAB (overactive bladder) Obesity, morbid, BMI 40.0-49.9 (HCC) Other and unspecified hyperlipidemia Type II or unspecified type diabetes mellitus without mention of complication, not stated as uncontrolled Unspecified essential hypertension Urinary frequency PAST SURGICAL HISTORY Procedure Laterality Date BMD BONE DENSITY 12/23/2002 CHOLECYSTECTOMY 03/1979 Open cholecystectomy ALLERGIES Sulfa (Sulfonamide Antibiotics) MEDICATIONS insulin lispro (HUMALOG KWIKPEN INSULIN) 100 unit/mL Take 6-10 units before meals if pre-meal BG >150 mg/dL. Patient assistance medication clopidogrel (PLAVIX) 75 mg tablet Take 1 tablet by mouth once daily. FLUoxetine (PROZAC) 40 mg capsule Take 1 capsule by mouth once daily. IFEREX 150 150 mg iron capsule Take 1 capsule by mouth once daily. metFORMIN ER (GLUCOPHAGE XR) 500 mg 24 hr tablet Take 2 tablets by mouth two times a day with meals. metoprolol tartrate, short acting, (LOPRESSOR) 50 mg tablet Take 1 tablet by mouth two times a day. rosuvastatin (CRESTOR) 5 mg tablet Take 1 tablet by mouth daily at bedtime. warfarin (COUMADIN) 2.5 mg tablet Start with 2.5 mg daily except 1.25mg Thurs semaglutide (OZEMPIC) 0.25 mg or 0.5 mg (2 mg/3 mL) pen Take 0.25mg weekly for 4 weeks then take 0.5mg weekly thereafter. Gets through [employer]. insulin glargine 100 unit/mL (3 mL) Inject 36 Units subcutaneously daily at bedtime. Patient assistance medication L. acidophilus/Bifid. animalis (DAILY PROBIOTIC ORAL) Take 1 capsule by mouth once daily. estradiol (ESTRACE) 0.01 % (0.1 mg/gram) vaginal cream Use 1 g vaginally two times a week. Apply before bed. Apply a pea-sized amount of cream to the vagina/vulva. Biotin 10,000 mcg cap Take 10,000 mcg by mouth once daily. With Keratin 100 MG blood sugar diagnostic (FREESTYLE TEST) test strip Check 4 time daily as directed. DX E11.65, Insulin: Yes Lancets lancets Test blood sugar(s) 4 times daily as directed. Dx: diabetes E11.65. Insulin: Yes insulin needles, DISPOSABLE, (PEN NEEDLE) 31 gauge x 5/16 ndle Use one needle per dose. One per day. COMPOUNDED PRESCRIPTION Diabetic shoes with insoles. DX E11.65, E11,49 COMPOUNDED PRESCRIPTION Hinged knee brace for left knee--Don Janine OA Reaction Web Knee brace. Dx Knee pain and decreased mobility secondary to degenerative arthritis 715.96 (Patient not taking: Reported on 10/06/2022) COMPOUNDED PRESCRIPTION ascensia lancets FAMILY HISTORY Problem Relation Age of Onset Diabetes Brother HEART ATTACK,KIDNEY FAILURE Diabetes Father KIDNEY FAILURE Cancer Maternal Grandmother LIVER CANCER Heart Mother QUADRUPLE BIPASS Diabetes Sister Cancer Sister female cancer--told not ovarian cancer; had oophorectomy and having chemo Social History Tobacco Use Smoking status: Former C (more content not included)... Normal [facility] XR CHEST 2V FRONTAL/LATon XR CHEST 2V FRONTAL/LAT * * *Final Repor t* * * DATE OF EXAM: Nov 10 2024 3:08PM WOX [id number] - XR CHEST 2V FRONTAL/LAT / PROCEDURE REASON: Acute cough * * * * Physician Interpretation * * * * EXAMINATION: CHEST RADIOGRAPH (2 VIEW FRONTAL and LATERAL) CLINICAL HISTORY: Acute cough MQ: XC2_6 EXAM DATE/TIME: 11/10/2024 3:08 PM COMPARISON: 827 8 RESULT: Lines, tubes, and devices: None. Lungs and pleura: * Peribronchial wall thickening is noted in the hilar regions. * Patchy perihilar densities also noted No other focal consolidation. No lung mass. No pleural effusion. No pneumothorax. Cardiomediastinal silhouette: Normal cardiomediastinal silhouette. Bones and soft tissues: Unremarkable. IMPRESSION: Findings could represent bronchitis or developing pneumonia Final Cleaner: PSCB Transcribe Date/Time: Nov 10 2024 3:24P Dictated by : DARLENE BRASWELL DO This examination was interpreted and the report reviewed and electronically signed by: DARLENE BRASWELL DO on Nov 10 2024 3:26PM EST [id number] Normal [facility] XR Chest PA and Lateralon IMPRESSION: Findings could represent bronchitis or developing pneumonia Final Cleaner: PSC Transcribe Date/Time: Nov 10 2024 3:24P Dictated by : DARLENE BRASWELL DO This examination was interpreted and the report reviewed and electronically signed by: DARLENE BRASWELL DO on Nov 10 2024 3:26PM EST DIVISION OF RADIOLOGY * * *Final Report* * * DATE OF EXAM: Nov 10 2024 3:08PM WOX [id number] - XR CHEST 2V FRONTAL/LAT / PROCEDURE REASON: Acute cough * * * * Physician Interpretation * * * * EXAMINATION: CHEST RADIOGRAPH (2 VIEW FRONTAL & LATERAL) CLINICAL HISTORY: Acute cough MQ: XC2_6 EXAM DATE/TIME: 11/10/2024 3:08 PM COMPARISON: 827 8 RESULT: Lines, tubes, and devices: None. Lungs and pleura: * Peribronchial wall thickening is noted in the hilar regions. * Patchy perihilar densities also noted No other focal consolidation. No lung mass. No pleural effusion. No pneumothorax. Cardiomediastinal silhouette: Normal cardiomediastinal silhouette. Bones and soft tissues: Unremarkable. DIVISION OF RADIOLOGY Provider, [facility] - 11/10/2024 * * *Final Report* * * DATE OF EXAM: Nov 10 2024 3:08PM WOX [id number] - XR CHEST 2V FRONTAL/LAT / PROCEDURE REASON: Acute cough * * * * Physician Interpretation * * * * EXAMINATION: CHEST RADIOGRAPH (2 VIEW FRONTAL & LATERAL) CLINICAL HISTORY: Acute cough MQ: XC2_6 EXAM DATE/TIME: 11/10/2024 3:08 PM COMPARISON: 827 8 RESULT: Lines, tubes, and devices: None. Lungs and pleura: * Peribronchial wall thickening is noted in the hilar regions. * Patchy perihilar densities also noted No other focal consolidation. No lung mass. No pleural effusion. No pneumothorax. Cardiomediastinal silhouette: Normal cardiomediastinal silhouette. Bones and soft tissues: Unremarkable. IMPRESSION IMPRESSION: Findings could represent bronchitis or developing pneumonia Final Cleaner: PSCB Transcribe Date/Time: Nov 10 2024 3:24P Dictated by : DARLENE BRASWELL DO This examination was interpreted and the report reviewed and electronically signed by: DARLENE BRASWELL DO on Nov 10 2024 3:26PM EST [facility] Radiology Study observation (narrative) Devora sutton [facility] XR Chest PA and LateralOrder ed By: [facility]cf Provider on 11-10-2024 [facility] WEND[facility] FOR[facility] ([id number]) 1955 F Date Time Provider Department 11/07/24 JAKE EDWARDS MEBECK During your visit today, we recorded the following information about you: Jake Edwards [facility] 11/07/2024 11:22 AM Signed Called patient for scheduled phone appt but unable to reach x 3. LMOM to return call to office to reschedule appt. MyChart is not active. Primary Care Pharmacy Rescheduling Outreach Call center, please contact patient and reschedule telephone visit for Diabetes management within ~4 week(s). (Visit length: 30 minutes) Thank you, Jake Edwards RP 11/07/2024 11:21 AM Huyen Lamarshua 11/10/2024 9:09 AM Signed Spoke with patient. Rescheduled appt. Allergies As of Date: 11/07/2024 Noted Allergy Reaction SULFA (SULFONAMIDE ANTIBIOTICS) 08/28/2006 2 - Rash Comments: BLISTERS Date Reviewed: 07/25/2024 Reviewed by: Leda Bray LPN - Fully Assessed Reason for Visit: Missed Appointment [1304] Cmt: Primary care reschedule Prescriptions as of 11/10/2024 - insulin lispro (HUMALOG KWIKPEN INSULIN) 100 unit/mL Take 6-10 units before meals if pre-meal BG >150 mg/dL. Patient assistance medication - clopidogrel (PLAVIX) 75 mg tablet Take 1 tablet by mouth once daily. - FLUoxetine (PROZAC) 40 mg capsule Take 1 capsule by mouth once daily. - IFEREX 150 150 mg iron capsule Take 1 capsule by mouth once daily. - metFORMIN ER (GLUCOPHAGE XR) 500 mg 24 hr tablet Take 2 tablets by mouth two times a day with meals. - metoprolol tartrate, short acting, (LOPRESSOR) 50 mg tablet Take 1 tablet by mouth two times a day. - rosuvastatin (CRESTOR) 5 mg tablet Take 1 tablet by mouth daily at bedtime. - warfarin (COUMADIN) 2.5 mg tablet Start with 2.5 mg daily except 1.25mg Thurs - semaglutide (OZEMPIC) 0.25 mg or 0.5 mg (2 mg/3 mL) pen Take 0.25mg weekly for 4 weeks then take 0.5mg weekly thereafter. Gets through [employer]. - insulin glargine 100 unit/mL (3 mL) Inject 36 Units subcutaneously daily at bedtime. Patient assistance medication - L. acidophilus/Bifid. animalis (DAILY PROBIOTIC ORAL) Take 1 capsule by mouth once daily. - estradiol (ESTRACE) 0.01 % (0.1 mg/gram) vaginal cream Use 1 g vaginally two times a week. Apply before bed. Apply a pea-sized amount of cream to the vagina/vulva. - Biotin 10,000 mcg cap Take 10,000 mcg by mouth once daily. With Keratin 100 MG - blood sugar diagnostic (FREESTYLE TEST) test strip Check 4 time daily as directed. DX E11.65, Insulin: Yes - Lancets lancets Test blood sugar(s) 4 times daily as directed. Dx: diabetes E11.65. Insulin: Yes - insulin needles, DISPOSABLE, (PEN NEEDLE) 31 gauge x 5/16 ndle Use one needle per dose. One per day. - COMPOUNDED PRESCRIPTION Diabetic shoes with insoles. DX E11.65, E11,49 - COMPOUNDED PRESCRIPTION Hinged knee brace for left knee--Don Janine OA Reaction Web Knee brace. Dx Knee pain and decreased mobility secondary to degenerative arthritis 715.96 - COMPOUNDED PRESCRIPTION ascensia lancets Meds Comments as of 02/21/2013: Problem List As Of Date 11/07/2024 Noted Resolved HTN (hypertension), benign [I10] Hyperlipidemia [E78.5] Type II diabetes mellitus, uncontrolled (HCC) [* URINARY FREQUENCY [R35.0] PANIC DISORDER WITHOUT AGORAPHOBIA [F41.0] 07/21/2008 GERD (gastroesophageal reflux disease) [K21.9] 04/05/2012 Heart palpitations [R00.2] 04/05/2012 Obesity, morbid, BMI 40.0-49.9 (HCC) [E66.01] Type 2 diabetes mellitus with hyperglycemia, wi*10/30/2014 PAF (paroxysmal atrial fibrillation) ([facility]) [I48*11/01/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] 06/21/2022 Recurrent major depressive disorder, in full re*05/18/2023 Encounter Status:Closed by JAKE EDWARDS on 11/07/24 [facility] ([id number]) 1955 F Date Time Provider Department 11/07/24 JW ROBERTS During your visit today, we recorded the following information about you: Jw Roberts holley 11/07/2024 11:45 AM Signed [facility] Ambulatory Pharmacy Anticoagulation Clinic Anticoagulation Episode Summary Anticoagulation Care Providers Provider Role Specialty Phone number Estephania Rodriguez MD Referring Internal Medicine [phone] Wendy Forte is a 69 year old year old female patient being evaluated today for a Telemanagement visit. Patient is currently on the following anticoagulant(s) Warfarin. Labs PT INR (no units) Date Value 07/10/2024 2.5 12/13/2021 2.2 11/01/2021 2.2 INR (no units) Date Value 11/05/2024 3.4 09/24/2024 2.2 08/19/2024 1.9 CrCl cannot be calculated (Unknown ideal weight.). 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: Anticoagulation Episode Summary Current INR goal: 2.0-3.0 Assessment: INR result of 3.4 is SUPRAtherapeutic due to: unknown cause - did not speak to patient Plan: Current Warfarin Dosing As of 11/07/2024 Full warfarin instructions: 11/07: 1.25 mg; Otherwise 1.25 mg every [place]; 2.5 mg all other days Left voice message Advised patient to decrease dose for 1 day only then resume weekly regimen Next INR check due on 12/05/2024 Patient instructed to call [facility] at [phone] with any questions or concerns. Jw Roberts [facility] Clinical Pharmacist, Pharmacy Anticoagulation Clinic Pharmacy Anticoagulation Clinic Pager: [phone] Allergies As of Date: 11/07/2024 Noted Allergy Reaction SULFA (SULFONAMIDE ANTIBIOTICS) 08/28/2006 2 - Rash Comments: BLISTERS Date Reviewed: 07/25/2024 Reviewed by: Leda Bray LPN - Fully Assessed Reason for Visit: Anticoagulation Telephone Fu [148] Cmt: Lab INR Result Prescriptions as of 11/07/2024 - insulin lispro (HUMALOG KWIKPEN INSULIN) 100 unit/mL Take 6-10 units before meals if pre-meal BG >150 mg/dL. Patient assistance medication - clopidogrel (PLAVIX) 75 mg tablet Take 1 tablet by mouth once daily. - FLUoxetine (PROZAC) 40 mg capsule Take 1 capsule by mouth once daily. - IFEREX 150 150 mg iron capsule Take 1 capsule by mouth once daily. - metFORMIN ER (GLUCOPHAGE XR) 500 mg 24 hr tablet Take 2 tablets by mouth two times a day with meals. - metoprolol tartrate, short acting, (LOPRESSOR) 50 mg tablet Take 1 tablet by mouth two times a day. - rosuvastatin (CRESTOR) 5 mg tablet Take 1 tablet by mouth daily at bedtime. - warfarin (COUMADIN) 2.5 mg tablet Start with 2.5 mg daily except 1.25mg Thurs - semaglutide (OZEMPIC) 0.25 mg or 0.5 mg (2 mg/3 mL) pen Take 0.25mg weekly for 4 weeks then take 0.5mg weekly thereafter. Gets through [employer]. - insulin glargine 100 unit/mL (3 mL) Inject 36 Units subcutaneously daily at bedtime. Patient assistance medication - L. acidophilus/Bifid. animalis (DAILY PROBIOTIC ORAL) Take 1 capsule by mouth once daily. - estradiol (ESTRACE) 0.01 % (0.1 mg/gram) vaginal cream Use 1 g vaginally two times a week. Apply before bed. Apply a pea-sized amount of cream to the vagina/vulva. - Biotin 10,000 mcg cap Take 10,000 mcg by mouth once daily. With Keratin 100 MG - blood sugar diagnostic (FREESTYLE TEST) test strip Check 4 time daily as directed. DX E11.65, Insulin: Yes - Lancets lancets Test blood sugar(s) 4 times daily as directed. Dx: diabetes E11.65. Insulin: Yes - insulin needles, DISPOSABLE, (PEN NEEDLE) 31 gauge x 5/16 ndle Use one needle per dose. One per day. - COMPOUNDED PRESCRIPTION Diabetic shoes with insoles. DX E11.65, E11,49 - COMPOUNDED PRESCRIPTION Hinged knee brace for left knee--Don Janine OA Reaction Web Knee brace. Dx Knee pain and decreased mobility secondary to degenerative arthritis 715.96 - COMPOUNDED PRESCRIPTION ascensia lancets Meds Comments as of 02/21/2013: Problem List As Of Date 11/07/2024 Noted Resolved HTN (hypertension), benign [I10] Hyperlipidemia [E78.5] Type II diabetes mellitus, uncontrolled (HCC) [* URINARY FREQUENCY [R35.0] PANIC DISORDER WITHOUT AGORAPHOBIA [F41.0] 07/21/2008 GERD (gastroesophageal reflux disease) [K21.9] 04/05/2012 Heart palpitations [R00.2] 04/05/2012 Obesity, morbid, BMI 40.0-49.9 (HCC) [E66.01] Type 2 diabetes mellitus with hyperglycemia, wi*10/30/2014 PAF (paroxysmal atrial fibrillation) ([facility]) [I48*11/01/2021 half-way current use of anticoagulant [Z79.01] 06/21/2022 Recurrent major depressive disorder, in full re*05/18/2023 Encounter Status:Closed by JW ROBERTS on 11/07/24 Normal [facility] PT panel Coag (PPP)on 2024 INR Coag (PPP) [Relative time] 3.4 {INR} High 0.9-1.3 [facility] Comment on above: Order Comment: Speci men Type: BLOOD SPECIMENOrdering Facility: [facility] Address: [address] [place] [address] Result Comment: Adela min K Antagonist (VKA) Therapeutic Range: INR 2 to 3 (Target INR of 2.5) Note: For patients treated with VKA drugs, such as warfarin, the [place] [employer] 2012 Guideline recommends a therapeutic INR range of 2 to 3 (target INR of 2.5). This recommendation includes high-risk patients with antiphospholipid syndrome with previous arterial or venous thromboembolism, current-generation mechanical or bioprosthetic aortic heart valve replacement. Note: Patients with mechanical aortic valve replacement and additional risk factors for thromboembolic events (atrial fibrillation, previous thromboembolism, LV dysfunction, hypercoagulable conditions) or an older generation mechanical AVR (i.e., ball in-Cage) or any mechanical MVR should have a INR therapeutic range of 2.5 to 3.5 (target INR of 3). Leroy GH, et al. Chest 2012, 141:7S-47S Sveta RA, et al. [facility] 2017, 70: 252-289 Performed By: #### 3 4528-0 ####[facility] LABCLIA [id number] [address] [place] PT Coag (PPP) [Time] 34.0 s High 9.7-13.0 [facility] Comment on above: Order Comment: Speci lisa Type: BLOOD SPECIMENOrdering Facility: [facility] Address: [address] [place] [address] Performed By: #### 3 4528-0 ####[facility]CLIA [id number] JI DUARTE [id number] [place] [address] [place] CNPKalyn 10-24-2024 CNPN Telephone (INTMWS) WENDY FORTE ([id number]) 1955 F Date Time Provider Department 10/24/24 ESTEPHANIA RODRIGUEZ INTMWS During your visit today, we recorded the following information about you: Anabella Roche, JUANCARLOS 10/24/2024 12:25 PM Signed Patient calls and is asking for PCP to advise on lab results. Jake Edwards already advised patient on A1C and blood glucose results. Latest Ref Rng 09/24/2024 Alk Phos Bone % 10.7 - 68.3 % 32.6 Bone Fraction 12.9 - 52.6 U/L 46.0 Alk Phos Liver % 26.0 - 86.2 % 67.4 Liver Fraction 16.0 - 69.3 U/L 95.0 (H) Alk Phos Intestine % 0.0 - 24.2 % 0.0 Intestine Fraction 0.0 - 16.3 U/L 0.0 Alkaline Phosphatase 34 - 123 U/L 141 (H) Latest Ref Rng 09/24/2024 Albumin 3.9 - 4.9 g/dL 3.9 Bilirubin, Total 0.2 - 1.3 mg/dL 0.5 Bilirubin, Direct <0.3 mg/dL 0.2 Alkaline Phosphatase 34 - 123 U/L 141 (H) AST 13 - 35 U/L 35 ALT 7 - 38 U/L 21 Protein, Total 6.3 - 8.0 g/dL 8.2 (H) Latest Ref Rng 09/24/2024 Glucose 74 - 99 mg/dL 171 (H) BUN 7 - 21 mg/dL 22 (H) Creatinine 0.58 - 0.96 mg/dL 0.77 Sodium 136 - 144 mmol/L 138 Potassium 3.7 - 5.1 mmol/L 4.3 Chloride 98 - 107 mmol/L 102 CO2 22 - 30 mmol/L 23 Anion Gap 8 - 15 mmol/L 13 Calcium 8.5 - 10.2 mg/dL 9.6 eGFR >=60 mL/min/1.73m? 84 Estephania Rodriguez MD 10/24/2024 3:35 PM Signed Overall, labs are fine. The elevated alk phos was mild and the alk phos iso enzyme test showed was just elevated for liver. This goes along with finding of hepatic steatosis seen on CT of abdomen at [facility] done 02/19/23. Old term was fatty liver disease and now metabolic associated steatotic liver disease Current recommendations would be to get test to check elasticity of the liver with a special US type test. I ordered the elastography test and US so may get that scheduled at her convenience. If prefers to discuss with me first, okay. Ana Maria Boo MA 10/24/2024 4:09 PM Signed Patient notified and verbalized understanding. [facility] per her request Ana Maria Boo MA Allergies As of Date: 10/24/2024 Noted Allergy Reaction SULFA (SULFONAMIDE ANTIBIOTICS) 08/28/2006 2 - Rash Comments: BLISTERS Date Reviewed: 07/25/2024 Reviewed by: Leda Bray LPN - Fully Assessed Reason for Visit: Results [95] Primary Visit Diagnosis:Metabolic dysfunction-associate d steatotic liver disease (MASLD) [K76.0] Order(s):US ABD RIGHT UPPER QUADRANT [[id number]] Order #: [id number] FUTURE US ELASTOGRAPHY LIVER [[id number]] Order #: [id number] FUTURE Prescriptions as of 10/24/2024 - insulin lispro (HUMALOG KWIKPEN INSULIN) 100 unit/mL Take 6-10 units before meals if pre-meal BG >150 mg/dL. Patient assistance medication - clopidogrel (PLAVIX) 75 mg tablet Take 1 tablet by mouth once daily. - FLUoxetine (PROZAC) 40 mg capsule Take 1 capsule by mouth once daily. - IFEREX 150 150 mg iron capsule Take 1 capsule by mouth once daily. - metFORMIN ER (GLUCOPHAGE XR) 500 mg 24 hr tablet Take 2 tablets by mouth two times a day with meals. - metoprolol tartrate, short acting, (LOPRESSOR) 50 mg tablet Take 1 tablet by mouth two times a day. - rosuvastatin (CRESTOR) 5 mg tablet Take 1 tablet by mouth daily at bedtime. - warfarin (COUMADIN) 2.5 mg tablet Start with 2.5 mg daily except 1.25mg Thurs - semaglutide (OZEMPIC) 0.25 mg or 0.5 mg (2 mg/3 mL) pen Take 0.25mg weekly for 4 weeks then take 0.5mg weekly thereafter. Gets through [employer]. - insulin glargine 100 unit/mL (3 mL) Inject 36 Units subcutaneously daily at bedtime. Patient assistance medication - L. acidophilus/Bifid. animalis (DAILY PROBIOTIC ORAL) Take 1 capsule by mouth once daily. - estradiol (ESTRACE) 0.01 % (0.1 mg/gram) vaginal cream Use 1 g vaginally two times a week. Apply before bed. Apply a pea-sized amount of cream to the vagina/vulva. - Biotin 10,000 mcg cap Take 10,000 mcg by mouth once daily. With Keratin 100 MG - blood sugar diagnostic (FREESTYLE TEST) test strip Check 4 time daily as directed. DX E11.65, Insulin: Yes - Lancets lancets Test blood sugar(s) 4 times daily as directed. Dx: diabetes E11.65. Insulin: Yes - insulin needles, DISPOSABLE, (PEN NEEDLE) 31 gauge x 5/16 ndle Use one needle per dose. One per day. - COMPOUNDED PRESCRIPTION Diabetic shoes with insoles. DX E11.65, E11,49 - COMPOUNDED PRESCRIPTION Hinged knee brace for left knee--Don Janine OA Reaction Web Knee brace. Dx Knee pain and decreased mobility secondary to degenerative arthritis 715.96 - COMPOUNDED PRESCRIPTION ascensia lancets Meds Comments as of 02/21/2013: Problem List As Of Date 10/24/2024 Noted Resolved HTN (hypertension), benign [I10] Hyperlipidemia [E78.5] Type II diabetes mellitus, uncontrolled (HCC) [* URINARY FREQUENCY [R35.0] PANIC DISORDER WITHOUT AGORAPHOBIA [F41.0] 07/21/2008 GERD (gastroesophageal reflux disease) [ (more content not included)... Normal [facility] CNPNon 10-19-2024 CNPN Telephone (JOSE L) WENDY FORTE ([id number]) 1955 F Date Time Provider Department 10/19/24 ESTEPHANIA RODRIGUEZ During your visit today, we recorded the following information about you: Janiya Osborn 10/19/2024 9:39 AM Signed Once signed by provider please fax forms back to Patient Assistance Team ATTN : Kali at [phone]. Provider portion of patient assistance [facility] applications (Basaglar AND Humalog Kwikpens) have been scanned to patient documents. Patient Assistance Team is asking that forms be printed at office for Dr Estephania Rodriguez to review and sign. Thank You! Janiya Osborn CPhT E-Mail : [email or web address] Phone : [phone] Fax : [phone] Sharonda Alcantara LPN 10/19/2024 4:10 PM Signed Printed for pcp too sign. Sharonda Alcantara LPN 10/20/2024 8:24 AM Signed Signed and faxed back. Sharonda Alcantara LPN 11/09/2024 8:22 AM Signed Printed for pt to complete her part. Sharonda Alcantara LPN 11/09/2024 9:10 AM Signed Message left for pt to return call to a nurse. She also needs her appt with pcp or [facility] reschedule to review Diabetes. Janiya Osborn CPhT 11/15/2024 11:02 PM Signed Application faxed to [facility] for medications Basaglar AND Humalog units-100 Kwikpens on 11/15/2024. Patient Assistance Team will follow up via phone call to collision worker if in 7-10 business days no faxed response is recieved. Janiya Osborn [facility] E-Mail : [email or web address] Phone : [phone] Fax : [phone] Janiya Osborn CPhT 11/16/2024 9:33 PM Signed Patient has been approved with [employer] for medication(s) Basaglar Kwikpen units-100 through 09/06/2025. Patient [employer] ID is : [id number] Patient has been approved with [employer] for medication(s) Humalog Kwikpen units-100 through 09/06/2025. Patient [employer] ID is : [id number] Approval letter for patient has been scanned into [employer] along with completed application. Patient Assistance Team will alert pharmacist of patient approved status. Janiya Osborn [facility] E-Mail : [email or web address] Phone : [phone] Fax : [phone] Allergies As of Date: 10/19/2024 Noted Allergy Reaction SULFA (SULFONAMIDE ANTIBIOTICS) 08/28/2006 2 - Rash Comments: BLISTERS Date Reviewed: 07/25/2024 Reviewed by: Leda Bray LPN - Fully Assessed Reason for Visit: Forms [013] Cmt: Patient Assistance Program [employer] Renewal (Basaglar AND Humalog Kwikpens) Prescriptions as of 05/05/2025 - semaglutide (OZEMPIC) 0.25 mg or 0.5 mg (2 mg/3 mL) pen Inject 0.25 mg subcutaneously one time a week. Do not send to the pharmacy - receives through patient assistance program. Managed by [facility] pharmacy team - any order changes, route to?[facility] - insulin lispro (HUMALOG KWIKPEN INSULIN) 100 unit/mL Take 6 units before meals if pre-meal BG >150 mg/dL. Patient assistance medication - insulin glargine 100 unit/mL (3 mL) Inject 40 Units subcutaneously daily at bedtime. Patient assistance medication - clopidogrel (PLAVIX) 75 mg tablet Take 1 tablet by mouth once daily. - FLUoxetine (PROZAC) 40 mg capsule Take 1 capsule by mouth once daily. - IFEREX 150 150 mg iron capsule Take 1 capsule by mouth once daily. - metFORMIN ER (GLUCOPHAGE XR) 500 mg 24 hr tablet Take 2 tablets by mouth two times a day with meals. - metoprolol tartrate, short acting, (LOPRESSOR) 50 mg tablet Take 1 tablet by mouth two times a day. - rosuvastatin (CRESTOR) 5 mg tablet Take 1 tablet by mouth daily at bedtime. - warfarin (COUMADIN) 2.5 mg tablet Start with 2.5 mg daily except 1.25mg Thurs - L. acidophilus/Bifid. animalis (DAILY PROBIOTIC ORAL) Take 1 capsule by mouth once daily. - estradiol (ESTRACE) 0.01 % (0.1 mg/gram) vaginal cream Use 1 g vaginally two times a week. Apply before bed. Apply a pea-sized amount of cream to the vagina/vulva. - Biotin 10,000 mcg cap Take 10,000 mcg by mouth once daily. With Keratin 100 MG - blood sugar diagnostic (FREESTYLE TEST) test strip Check 4 time daily as directed. DX E11.65, Insulin: Yes - Lancets lancets Test blood sugar(s) 4 times daily as directed. Dx: diabetes E11.65. Insulin: Yes - insulin needles, DISPOSABLE, (PEN NEEDLE) 31 gauge x 5/16 ndle Use one needle per dose. One per day. - COMPOUNDED PRESCRIPTION Diabetic shoes with insoles. DX E11.65, E11,49 - COMPOUNDED PRESCRIPTION Hinged knee brace for left knee--Don Janine OA Reaction Web Knee brace. Dx Knee pain and decreased mobility secondary to degenerative arthritis 715.96 - COMPOUNDED PRESCRIPTION ascensia lancets Meds Comments as of 02/21/2013: Problem List As Of Date 10/19/2024 Noted Resolved HTN (hypertension), benign [I10] Hyperlipidemia [E78.5] Type II diabetes mellitus, uncontrolled (HCC) [* URINARY FREQUENCY [R35.0] PANIC DISORDER WITHOUT AGORAPHO (more content not included)... Normal [facility] Jose 10-14-2024 [facility] Telephone (INTMWS) WENDY FORTE ([id number]) 1955 F Date Time Provider Department 10/14/24 ESTEPHANIA RODRIGUEZWS During your visit today, we recorded the following information about you: Sharonda Alcantara LPN 10/14/2024 9:37 AM Signed Fax rec'd from [facility]. Pt is due for new application due 11/22/24 for humalog and basaglar. It looks like pharmacy helps pt with this. Will ask them to review. Allergies As of Date: 10/14/2024 Noted Allergy Reaction SULFA (SULFONAMIDE ANTIBIOTICS) 08/28/2006 2 - Rash Comments: BLISTERS Date Reviewed: 07/25/2024 Reviewed by: Leda Bray LPN - Fully Assessed Reason for Visit: new application needed for 2024 from [employer]. [Other] Prescriptions as of 10/19/2024 - insulin lispro (HUMALOG KWIKPEN INSULIN) 100 unit/mL Take 6-10 units before meals if pre-meal BG >150 mg/dL. Patient assistance medication - clopidogrel (PLAVIX) 75 mg tablet Take 1 tablet by mouth once daily. - FLUoxetine (PROZAC) 40 mg capsule Take 1 capsule by mouth once daily. - IFEREX 150 150 mg iron capsule Take 1 capsule by mouth once daily. - metFORMIN ER (GLUCOPHAGE XR) 500 mg 24 hr tablet Take 2 tablets by mouth two times a day with meals. - metoprolol tartrate, short acting, (LOPRESSOR) 50 mg tablet Take 1 tablet by mouth two times a day. - rosuvastatin (CRESTOR) 5 mg tablet Take 1 tablet by mouth daily at bedtime. - warfarin (COUMADIN) 2.5 mg tablet Start with 2.5 mg daily except 1.25mg Thurs - semaglutide (OZEMPIC) 0.25 mg or 0.5 mg (2 mg/3 mL) pen Take 0.25mg weekly for 4 weeks then take 0.5mg weekly thereafter. Gets through [employer]. - insulin glargine 100 unit/mL (3 mL) Inject 36 Units subcutaneously daily at bedtime. Patient assistance medication - L. acidophilus/Bifid. animalis (DAILY PROBIOTIC ORAL) Take 1 capsule by mouth once daily. - estradiol (ESTRACE) 0.01 % (0.1 mg/gram) vaginal cream Use 1 g vaginally two times a week. Apply before bed. Apply a pea-sized amount of cream to the vagina/vulva. - Biotin 10,000 mcg cap Take 10,000 mcg by mouth once daily. With Keratin 100 MG - blood sugar diagnostic (FREESTYLE TEST) test strip Check 4 time daily as directed. DX E11.65, Insulin: Yes - Lancets lancets Test blood sugar(s) 4 times daily as directed. Dx: diabetes E11.65. Insulin: Yes - insulin needles, DISPOSABLE, (PEN NEEDLE) 31 gauge x 5/16 ndle Use one needle per dose. One per day. - COMPOUNDED PRESCRIPTION Diabetic shoes with insoles. DX E11.65, E11,49 - COMPOUNDED PRESCRIPTION Hinged knee brace for left knee--Nestor Mehta OA Reaction Web Knee brace. Dx Knee pain and decreased mobility secondary to degenerative arthritis 715.96 - COMPOUNDED PRESCRIPTION [employer] lancLukkin Meds Comments as of 02/21/2013: Problem List As Of Date 10/14/2024 Noted Resolved HTN (hypertension), benign [I10] Hyperlipidemia [E78.5] Type II diabetes mellitus, uncontrolled (HCC) [* URINARY FREQUENCY [R35.0] PANIC DISORDER WITHOUT AGORAPHOBIA [F41.0] 07/21/2008 GERD (gastroesophageal reflux disease) [K21.9] 04/05/2012 Heart palpitations [R00.2] 04/05/2012 Obesity, morbid, BMI 40.0-49.9 (HCC) [E66.01] Type 2 diabetes mellitus with hyperglycemia, wi*10/30/2014 PAF (paroxysmal atrial fibrillation) ([facility]) [I48*11/01/2021 half-way current use of anticoagulant [Z79.01] 06/21/2022 Recurrent major depressive disorder, in full re*05/18/2023 Encounter Status:Closed by SHARONDA ALCANTARA on 10/19/24 [facility] Jose 09-27-2024 DODIE Telephone (PHARMN) WENDY FORTE ([id number]) 1955 F Date Time Provider Department 09/27/24 PHARMACIST PHARMN During your visit today, we recorded the following information about you: Danielle Elizabeth RN 09/27/2024 12:48 PM Signed Patient calling to advise that on 09/22/2024 at bedtime, the patient woke up and noted bleeding and bigger clots (some the size of a quarter) around her gum area. Patient stated she did not vomit or cough any blood. The bleeding lasted approximately (2) hours. Patient did not see any open areas in her mouth. Patient rinsed her mouth out and bleeding stopped. Patient has not had any more bleeding or bruising since and INR was therapeutic. Patient is scheduled to see PCP on 10/03/2024. Advised patient is any more bleeding or increased bruising occurs to go to the ED. Patient voiced understanding. PT INR (no units) Date Value 07/10/2024 2.5 12/13/2021 2.2 11/01/2021 2.2 INR (no units) Date Value 09/24/2024 2.2 08/19/2024 1.9 06/10/2024 2.5 Erna Elizabeth RN Pharmacy Antico[facility] Clinic Monse Daily [facility] 09/27/2024 1:01 PM Signed Noted. I have read and agree with recommendations below. Monse Daily, Pharm. D. 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 Patient assistance medication - clopidogrel (PLAVIX) 75 mg tablet Take 1 tablet by mouth once daily. - FLUoxetine (PROZAC) 40 mg capsule Take 1 capsule by mouth once daily. - IFEREX 150 150 mg iron capsule Take 1 capsule by mouth once daily. - metFORMIN ER (GLUCOPHAGE XR) 500 mg 24 hr tablet Take 2 tablets by mouth two times a day with meals. - metoprolol tartrate, short acting, (LOPRESSOR) 50 mg tablet Take 1 tablet by mouth two times a day. - rosuvastatin (CRESTOR) 5 mg tablet Take 1 tablet by mouth daily at bedtime. - warfarin (COUMADIN) 2.5 mg tablet Start with 2.5 mg daily except 1.25mg Thurs - semaglutide (OZEMPIC) 0.25 mg or 0.5 mg (2 mg/3 mL) pen Take 0.25mg weekly for 4 weeks then take 0.5mg weekly thereafter. Gets through [employer]. - insulin glargine 100 unit/mL (3 mL) Inject 36 Units subcutaneously daily at bedtime. Patient assistance medication - L. acidophilus/Bifid. animalis (DAILY PROBIOTIC ORAL) Take 1 capsule by mouth once daily. - estradiol (ESTRACE) 0.01 % (0.1 mg/gram) vaginal cream Use 1 g vaginally two times a week. Apply before bed. Apply a pea-sized amount of cream to the vagina/vulva. - Biotin 10,000 mcg cap Take 10,000 mcg by mouth once daily. With Keratin 100 MG - blood sugar diagnostic (FREESTYLE TEST) test strip Check 4 time daily as directed. DX E11.65, Insulin: Yes - Lancets lancets Test blood sugar(s) 4 times daily as directed. Dx: diabetes E11.65. Insulin: Yes - insulin needles, DISPOSABLE, (PEN NEEDLE) 31 gauge x 5/16 ndle Use one needle per dose. One per day. - COMPOUNDED PRESCRIPTION Diabetic shoes with insoles. DX E11.65, E11,49 - COMPOUNDED PRESCRIPTION Hinged knee brace for left knee--Nestor Mehta OA Reaction Web Knee brace. Dx Knee pain and decreased mobility secondary to degenerative arthritis 715.96 - COMPOUNDED PRESCRIPTION [facility] Meds Comments as of 02/21/2013: Problem List As Of Date 09/27/2024 Noted Resolved HTN (hypertension), benign [I10] Hyperlipidemia [E78.5] Type II diabetes mellitus, uncontrolled (HCC) [* URINARY FREQUENCY [R35.0] PANIC DISORDER WITHOUT AGORAPHOBIA [F41.0] 07/21/2008 GERD (gastroesophageal reflux disease) [K21.9] 04/05/2012 Heart palpitations [R00.2] 04/05/2012 Obesity, morbid, BMI 40.0-49.9 (HCC) [E66.01] Type 2 diabetes mellitus with hyperglycemia, wi*10/30/2014 PAF (paroxysmal atrial fibrillation) ([facility]) [I48*11/01/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] 06/21/2022 Recurrent major depressive disorder, in full re*05/18/2023 Encounter Status:Closed by MONSE DAILY on 09/27/24 [facility] CNPKalyn 09-26-2024 CNPN Telephone (PHAMTE) WENDY FORTE ([id number]) 1955 F Date Time Provider Department 09/26/24 JW ROBERTS During your visit today, we recorded the following information about you: Jw Roberts RPh 09/26/2024 10:26 AM Signed [facility] Ambulatory Pharm[facility] Anticoagulation Clinic Anticoagulation Episode Summary Anticoagulation Care Providers Provider Role Specialty Phone number Estephania Rodriguez MD Referring Internal Medicine [phone] Wendy Forte is a 69 year old year old female patient being evaluated today for a Telemanagement visit. Patient is currently on the following anticoagulant(s) Warfarin. Labs PT INR (no units) Date Value 07/10/2024 2.5 12/13/2021 2.2 11/01/2021 2.2 INR (no units) Date Value 09/24/2024 2.2 08/19/2024 1.9 06/10/2024 2.5 Estimated Creatinine Clearance: 86 mL/min (based on SCr of 0.77 mg/dL). 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: Anticoagulation Episode Summary Current INR goal: 2.0-3.0 Assessment: INR result of 2.2 is therapeutic Plan: Current Warfarin Dosing As of 09/26/2024 Full warfarin instructions: 1.25 mg every Alma; 2.5 mg all other days Left voice message Advised patient to continue current weekly dose as noted above Next INR check due on 10/24/2024 Patient instructed to call [facility] at [phone] with any questions or concerns. Jw Roberts [facility] Clinical Pharmacist, Pharmacy Anticoagulation Clinic Pharm[facility] Pager: [phone] Camacho (Hunite)Kori 09/27/2024 10:42 AM Signed PATIENT CALL Patient called call center regarding results. Patient called and wanted to know if we received result from 09/24. Read the following to patient: Assessment: INR result of 2.2 is therapeutic Plan: Current Warfarin Dosing As of 09/26/2024 Full warfarin instructions: 1.25 mg every Alma; 2.5 mg all other days Left voice message Advised patient to continue current weekly dose as noted above Next INR check due on 10/24/2024 Patient verbalized understanding. Will route to [facility] as FYIStar Sauer (Hunite) Jw Roberts RPh 10/24/2024 3:37 PM Signed Patient was due to test INR today. Will continue to monitor for results. Follow up in one week if no results received. Patient's INR Goal range is - 2.0-3.0 PT INR (no units) Date Value 07/10/2024 2.5 12/13/2021 2.2 11/01/2021 2.2 INR (no units) Date Value 09/24/2024 2.2 08/19/2024 1.9 06/10/2024 2.5 Patient is in titration phase - No Patient has dosing provided until next INR - Yes Patient is on an injectable anticoagulant - No Jw Roberts holley 10/31/2024 4:09 PM Signed Wendy Forte was called and reminded to test INR today or as soon as possible. Jw Roberts [facility] Allergies As of Date: 09/26/2024 Noted Allergy Reaction SULFA (SULFONAMIDE ANTIBIOTICS) 08/28/2006 2 - Rash Comments: BLISTERS Date Reviewed: 07/25/2024 Reviewed by: Leda Bray LPN - Fully Assessed Reason for Visit: Anticoagulation Telephone Fu [148] Cmt: Lab INR Result Prescriptions as of 10/31/2024 - insulin lispro (HUMALOG KWIKPEN INSULIN) 100 unit/mL Take 6-10 units before meals if pre-meal BG >150 mg/dL. Patient assistance medication - clopidogrel (PLAVIX) 75 mg tablet Take 1 tablet by mouth once daily. - FLUoxetine (PROZAC) 40 mg capsule Take 1 capsule by mouth once daily. - IFEREX 150 150 mg iron capsule Take 1 capsule by mouth once daily. - metFORMIN ER (GLUCOPHAGE XR) 500 mg 24 hr tablet Take 2 tablets by mouth two times a day with meals. - metoprolol tartrate, short acting, (LOPRESSOR) 50 mg tablet Take 1 tablet by mouth two times a day. - rosuvastatin (CRESTOR) 5 mg tablet Take 1 tablet by mouth daily at bedtime. - warfarin (COUMADIN) 2.5 mg tablet Start with 2.5 mg daily except 1.25mg Thurs - semaglutide (OZEMPIC) 0.25 mg or 0.5 mg (2 mg/3 mL) pen Take 0.25mg weekly for 4 weeks then take 0.5mg weekly thereafter. Gets through [employer]. - insulin glargine 100 unit/mL (3 mL) Inject 36 Units subcutaneously daily at bedtime. Patient assistance medication - L. acidophilus/Bifid. animalis (DAILY PROBIOTIC ORAL) Take 1 capsule by mouth once daily. - estradiol (ESTRACE) 0.01 % (0.1 mg/gram) vaginal cream Use 1 g vaginally two times a week. Apply before bed. Apply a pea-sized amount of cream to the vagina/vulva. - Biotin 10,000 mcg cap Take 10,000 mcg by mouth once daily. With Keratin 100 MG - blood sugar diagnostic (FREESTYLE TEST) test strip Check 4 time daily as directed. DX E11.65, Insulin: Yes - Lancets lancets Test blood sugar(s) 4 times daily as directed. Dx: diabetes E11.65. Insulin: Yes - insulin needles, DISPOSABLE, (PEN NEEDLE) 31 gauge x /16 ndle Use one needle per dose. (more content not included)... Normal [facility] ALKALINE PHOSPHATASE ISOENZY MES (P)on 09-24-2024 ALK PHOS BONE % 32.6 % Normal 10.7-68.3 [facility] Comment on above: Order Comment: Speci men Type: BLOOD SPECIMENOrdering Facility: [facility] Address: [address] [place] [address] Performed By: #### A LKISOP ####[facility] [id number] [place] [address] [place] ALK PHOS LIVER % 67.4 % Normal 26.0-86.2 [facility] Comment on above: Order Comment: Speci men Type: BLOOD SPECIMENOrdering Facility: [facility] Address: [address] [place] [address] Performed By: #### A LKISOP ####[facility] [id number] [place] [address] [place] BONE FRACTION 46.0 U/L Normal 12.9-52.6 [facility] Comment on above: Order Comment: Speci men Type: BLOOD SPECIMENOrdering Facility: [facility] Address: [address] [place] [address] Performed By: #### A LKISOP ####[facility] [id number] [place] [address] [place] INTESTINE FRACTION 0.0 U/L Normal 0.0-16.3 [facility] Comment on above: Order Comment: Speci men Type: BLOOD SPECIMENOrdering Facility: [facility] Address: [address] [place] [address] Performed By: #### A LKISOP ####[facility] [id number] [id number] [address] [place] LIVER FRACTION 95.0 U/L High 16.0-69.3 [facility] Comment on above: Order Comment: Speci men Type: BLOOD SPECIMENOrdering Facility: [facility] Address: [address] [place] [address] Performed By: #### A LKISOP ####[facility] [id number] [place] [address] [place] Neutrophils/100 WBC (Bld) 0.0 % Normal 0.0-24.2 [facility] Comment on above: Order Comment: Speci men Type: BLOOD SPECIMENOrdering Facility: [facility] Address: [address] [place] [address] Performed By: #### A LKISOP ####[facility] [id number] [place] [address] [place] Basic metabolic 2000 panelon 09-24-2024 Anion gap [Moles/Vol] 13 mmol/L Normal 8-15 [facility] Comment on above: Order Comment: Speci men Type: BLOOD SPECIMENOrdering Facility: [facility] Address: [address] [place] [address] Performed By: #### 2 4321-2, 96292-4, 6768-6 ####[facility] [id number] [place] [address] [place] Calcium [Mass/Vol] 9.6 mg/dL Normal 8.5-10.2 [facility] Comment on above: Order Comment: Speci men Type: BLOOD SPECIMENOrdering Facility: [facility] Address: [address] [place] [address] Performed By: #### 2 4321-2, 76956-8, 6768-6 ####[facility] [id number] [address] [address] [place] Chloride [Moles/Vol] 102 mmol/L Normal 98-107 [facility] Comment on above: Order Comment: Speci men Type: BLOOD SPECIMENOrdering Facility: [facility] Address: [address] [place] [address] Performed By: #### 2 4321-2, 31956-5, 6768-6 ####[facility] [id number] [address] [address] [place] CO2 [Moles/Vol] 23 mmol/L Normal 22-30 [facility] Comment on above: Order Comment: Speci men Type: BLOOD SPECIMENOrdering Facility: [facility] Address: [address] [place] [address] Performed By: #### 2 4321-2, 77656-2, 6768-6 ####[facility] [id number] [place] [id number] [place] Creatinine [Mass/Vol] 0.77 mg/dL Normal 0.58-0.96 [facility] Comment on above: Order Comment: Speci men Type: BLOOD SPECIMENOrdering Facility: [facility] Address: [address] [place] [address] Performed By: #### 2 4321-2, 68896-4, 6768-6 ####[facility] [id number] [place] [address] [place] Creatinine and Glomerular filtration rate.predicted panel (S/P/Bld) 84 mL/min/1.73m??? Normal >=60 [facility] Comment on above: Order Comment: Speci men Type: BLOOD SPECIMENOrdering Facility: [facility] Address: [address] [place] [address] Result Comment: Chastity mated Glomerular Filtration Rate (eGFR) is calculated using the 2020 CKD-EPI creatinine equation. This equation utilizes serum creatinine, sex, and age as parameters. The creatinine assay has traceable calibration to isotope dilution-mass spectrometry. Refer to KDIGO guidelines for clinical interpretation. In patients with unstable renal function, e.g. those with acute kidney injury, the eGFR may not accurately reflect actual GFR. Performed By: #### 2 4321-2, 41112-1, 6768-6 ####[facility] [id number] [address] [address] [place] Glucose [Mass/Vol] 171 mg/dL High 74-99 [facility] Comment on above: Order Comment: Speci men Type: BLOOD SPECIMENOrdering Facility: [facility] Address: [address] [place] [address] Result Comment: The [place] Diabetes Association (ADA) provides guidance for cutoff values for fasting glucose and random glucose. The ADA defines fasting as no caloric intake for at least 8 hours. Fasting plasma glucose results between 100 to 125 mg/dL indicate increased risk for diabetes (prediabetes). Fasting plasma glucose results greater than or equal to 126 mg/dL meet the criteria for diagnosis of diabetes. In the absence of unequivocal hyperglycemia, results should be confirmed by repeat testing. In a patient with classic symptoms of hyperglycemia or hyperglycemic crisis, random plasma glucose results greater than or equal to 200 mg/dL meet the criteria for diagnosis of diabetes. Reference: Standards of Medical Care in Diabetes 2016, [place] Diabetes Association. Diabetes Care. 2016.39(Suppl 1). Performed By: #### 2 4321-2, 53312-5, 6768-6 ####[facility] [id number] [place] [id number] [place] Potassium [Moles/Vol] 4.3 mmol/L Normal 3.7-5.1 [facility] Comment on above: Order Comment: Speci men Type: BLOOD SPECIMENOrdering Facility: [facility] Address: [address] [place] [address] Performed By: #### 2 4321-2, 63883-5, 6768-6 ####[facility] [id number] [place] [id number] [place] Sodium [Moles/Vol] 138 mmol/L Normal 136-144 [facility] Comment on above: Order Comment: Speci men Type: BLOOD SPECIMENOrdering Facility: [facility] Address: [address] [place] [address] Performed By: #### 2 4321-2, 90539-9, 6768-6 ####[facility] LABCLIA [id number] [place] [address] [place] Urea nitrogen [Mass/Vol] 22 mg/dL High 7-21 [facility] Comment on above: Order Comment: Speci men Type: BLOOD SPECIMENOrdering Facility: [facility] Address: [address] [place] [address] Performed By: #### 2 4321-2, 10084-9, 6768-6 ####[facility] LABCL[facility] [id number] [place] [address] [place] HbA1c (Bld)on 09-24-2024 Average glucose Estimated from glycated hemoglobin (Bld) [Mass/Vol] 235 mg/dL Normal [facility] Comment on above: Order Comment: [facility] Type: BLOOD SPECIMENOrdering Facility: [facility] Address: [address] [place] [address] Result Comment: eAG: (Estimated average glucose) is a calculated value from HgbA1c and is insurance claim representative of the average blood glucose level in the last 2-3 month period. Performed By: #### 5 5454-3 ####[facility]CL[facility] [id number] [place] [address] [place] HbA1c (Bld) [Mass fraction] 9.8 % High 4.3-5.6 [facility] Comment on above: Order Comment: Akil men Type: BLOOD SPECIMENOrdering Facility: [facility] Address: [address] [place] [address] Result Comment: Amer [place] Diabetes Association guidelines indicate that patients with HgbA1c in the range 5.7-6.4% are at increased risk for development of diabetes, and intervention by lifestyle modification may be beneficial. HgbA1c greater or equal to 6.5% is considered diagnostic of diabetes. Performed By: #### 5 5454-3 ####[facility]CL[facility] [id number] [place] [address] [place] Hep Func 2000 Pnl SerPlon ALP [Catalytic activity/Vol] 141 U/L High 34-123 [facility] Comment on above: Order Comment: Speci men Type: BLOOD SPECIMENOrdering Facility: [facility] Address: [address] [place] [address] Performed By: #### 2 4321-2, 00000-7, 6768-6 ####[facility]CL[facility] [id number] [place] [address] [place] Hepatic function 2000 panelo n 09-24-2024 Albumin [Mass/Vol] 3.9 g/dL Normal 3.9-4.9 [facility] Comment on above: Order Comment: Speci men Type: BLOOD SPECIMENOrdering Facility: [facility] Address: [address] [place] [address] Performed By: #### 2 4321-2, 21215-6, 68-6 ####[facility]CL[facility] [id number] [place] [address] [place] ALT [Catalytic activity/Vol] 21 U/L Normal 7-38 [facility] Comment on above: Order Comment: Speci men Type: BLOOD SPECIMENOrdering Facility: [facility] Address: [address] [place] [address] Performed By: #### 2 4321-2, 87564-1, 6768-6 ####[facility]CL[facility] [id number] [place] [address] [place] AST [Catalytic activity/Vol] 35 U/L Normal 13-35 [facility] Comment on above: Order Comment: Speci men Type: BLOOD SPECIMENOrdering Facility: [facility] Address: [address] [place] [address] Performed By: #### 2 4321-2, 83522-3, 6768-6 ####[facility]CL[facility] [id number] [place] [address] [place] Bilirubin [Mass/Vol] 0.5 mg/dL Normal 0.2-1.3 [facility] Comment on above: Order Comment: Speci men Type: BLOOD SPECIMENOrdering Facility: [facility] Address: [address] [place] [address] Performed By: #### 2 4321-2, 42194-9, 6768-6 ####[facility]CL[facility] [id number] [place] [address] [place] Bilirubin.conjugated [Mass/Vol] 0.2 mg/dL Normal <0.3 [facility] Comment on above: Order Comment: Speci men Type: BLOOD SPECIMENOrdering Facility: [facility] Address: [address] [place] [address] Performed By: #### 2 4321-2, 12808-7, 6768-6 ####[facility] [id number] [place] [address] [place] Protein [Mass/Vol] 8.2 g/dL High 6.3-8.0 [facility] Comment on above: Order Comment: Speci men Type: BLOOD SPECIMENOrdering Facility: [facility] Address: [address] [place] [address] Performed By: #### 2 4321-2, 72946-8, 6768-6 ####[facility] [id number] [place] [address] [place] PT panel Coag (PPP)on 2024 INR Coag (PPP) [Relative time] 2.2 {INR} High 0.9-1.3 [facility] Comment on above: Order Comment: Speci men Type: BLOOD SPECIMENOrdering Facility: [facility] Address: [address] [place] [address] Result Comment: Adela min K Antagonist (VKA) Therapeutic Range: INR 2 to 3 (Target INR of 2.5) Note: For patients treated with VKA drugs, such as warfarin, the [place] College of Chest Physicians 2012 Guideline recommends a therapeutic INR range of 2 to 3 (target INR of 2.5). This recommendation includes high-risk patients with antiphospholipid syndrome with previous arterial or venous thromboembolism, current-generation mechanical or bioprosthetic aortic heart valve replacement. Note: Patients with mechanical aortic valve replacement and additional risk factors for thromboembolic events (atrial fibrillation, previous thromboembolism, LV dysfunction, hypercoagulable conditions) or an older generation mechanical AVR (i.e., ball in-Cage) or any mechanical MVR should have a INR therapeutic range of 2.5 to 3.5 (target INR of 3). Leroy GH, et al. Chest 2012, 141:7S-47S Sveta RA, et al. JAC 2017, 70: 252-289 Performed By: #### 3 4528-0 ####[facility] [id number] [place] [address] [place] PT Coag (PPP) [Time] 22.7 s High 9.7-13.0 [facility] Comment on above: Order Comment: Speci men Type: BLOOD SPECIMENOrdering Facility: [facility] Address: [address] [place] [address] Performed By: #### 3 4528-0 ####[facility] [id number] [address] [place] Jose 08-22-2024 DODIE Telephone (PHMEWO) WENDY FORTE ([id number]) 1955 F Date Time Provider Department 08/22/24 JAKE EDWARDS During your visit today, we recorded the following information about you: Jake Edwards RPh 08/22/2024 9:10 AM Signed Called patient to review lab results. Pt reported she was fasting for labs. Lipid panel mostly at goal. TRGs improved from last year but LDL slightly elevated. Pt reports taking statin consistently every day. Encouraged healthy diet of minimally processed foods, no greasy/fried foods, and encouraged more exercise. Glucose was very elevated. Pt reported being fasting but recalls being ill at the time of labwork. Reports Bgs at home have been well controlled, FBGs mostly in the 150s. Alk phos slightly elevated. Will see if PCP needs to comment further on this. Urine test shows more protein which indicates possible damage to kidneys by BP and/or BG elevations. Encouraged BG and BP control. Encouraged checking BP when out at pharmacy (she does not have BP cuff at home). Advised to be seated and relaxed for ~5 mins prior to checking. Contact PCP office if BP elevated. Will consider starting ACEi at next visit. Patient preferred f/up scheduled for 2024. F/up scheduled for 10/03. Jake Edwards, [facility], [facility] Primary Care Clinical Pharmacist Estephania Rodriguez MD 08/23/2024 12:35 AM Signed Reviewed labs. Added result note: Noted UACR shows increased [protein leaking in kidneys] and high glucose addressed by Jake Edwards [facility]. Will be following up on BP and blood sugars in September. Improved TG and HDL; LDL up some to 100. Follow up labs later. Noted Alk Phos higher than prior elevation that had been in 130s, and this time 163. Would check alk phos isoenzymes and LFTs to verify other LFTs still within normal limits when gets labs next--can do in 1 to 3 months. Will file orders for BMP and LFTs so can also check GGT, plus isoenzymes. Labs ordered to do in 1 to 3 months. Estephania Rodriguez MD 08/23/2024 12:35 AM Signed Addended by: ESTEPHANIA RODRIGUEZ on: 08/23/2024 12:35 AM Modules accepted: Veronica Saenz RN 08/23/2024 8:45 AM Signed Attempted to contact patient to review PCP message below. No answer. Message left for patient to call PCP office and ask for a nurse to review message. JUANCARLOS Gurrola Julia, LPN 08/26/2024 8:59 AM Signed PATIENT NOTIFIED OF SAME. Allergies As of Date: 08/22/2024 Noted Allergy Reaction SULFA (SULFONAMIDE ANTIBIOTICS) 08/28/2006 2 - Rash Comments: BLISTERS Date Reviewed: 07/25/2024 Reviewed by: Leda Bray LPN - Fully Assessed Reason for Visit: Results [95] Primary Visit Diagnosis:Elevated alkaline phosphatase level [R74.8] Other Visit Diagnosis:Type 2 diabetes mellitus with hyperglycemia, without long-term current use of insulin (HCC) [E11.65] Order(s):BASIC METABOLIC PANEL [SQBMP] Order #: [id number] FUTURE HEPATIC FUNCTION PNL [SQHFP] Order #: [id number] FUTURE ALK PHOS ISOENZYM BL [SQALKISO] Order #: [id number] FUTURE HEMOGLOBIN A1C [TQUPC9F] Order #: [id number] FUTURE Prescriptions as of 08/26/2024 - clopidogrel (PLAVIX) 75 mg tablet Take 1 tablet by mouth once daily. - FLUoxetine (PROZAC) 40 mg capsule Take 1 capsule by mouth once daily. - IFEREX 150 150 mg iron capsule Take 1 capsule by mouth once daily. - metFORMIN ER (GLUCOPHAGE XR) 500 mg 24 hr tablet Take 2 tablets by mouth two times a day with meals. - metoprolol tartrate, short acting, (LOPRESSOR) 50 mg tablet Take 1 tablet by mouth two times a day. - rosuvastatin (CRESTOR) 5 mg tablet Take 1 tablet by mouth daily at bedtime. - warfarin (COUMADIN) 2.5 mg tablet Start with 2.5 mg daily except 1.25mg Thurs - insulin lispro (HUMALOG KWIKPEN INSULIN) 100 unit/mL Inject 2 Units subcutaneously daily with breakfast AND 4 Units daily with lunch AND 2 Units daily with dinner. Patient assistance medication. - semaglutide (OZEMPIC) 0.25 mg or 0.5 mg (2 mg/3 mL) pen Take 0.25mg weekly for 4 weeks then take 0.5mg weekly thereafter. Gets through [employer]. - insulin glargine 100 unit/mL (3 mL) Inject 36 Units subcutaneously daily at bedtime. Patient assistance medication - L. acidophilus/Bifid. animalis (DAILY PROBIOTIC ORAL) Take 1 capsule by mouth once daily. - estradiol (ESTRACE) 0.01 % (0.1 mg/gram) vaginal cream Use 1 g vaginally two times a week. Apply before bed. Apply a pea-sized amount of cream to the vagina/vulva. - Biotin 10,000 mcg cap Take 10,000 mcg by mouth once daily. With Keratin 100 MG - blood sugar diagnostic (FREESTYLE TEST) test strip Check 4 time daily as directed. DX E11.65, Insulin: Yes - Lancets lancets Test blood sugar(s) 4 times daily as directed. Dx: diabetes E11.65. Insulin: Yes - insulin needles, DISPOSABLE, (PEN NEEDLE) 31 gauge x 5/16 ndle Use one needle per dose. One per day. - COMPOUNDED P (more content not included)... Normal [facility] ALBUMIN/CREATININE RATIO, UR INEon 08-19-2024 Albumin DL <= 20 mg/L (U) [Mass/Vol] 436.0 mg/L Normal [facility] Comment on above: Order Comment: Speci men Type: URINE SPECIMENOrdering Facility: [facility] Address: [address] [place] [address] Performed By: #### U ACR ####[facility] [id number] [place] [address] [place] Albumin/Creatinine (U) [Mass ratio] 254 mg/g High <30 [facility] Comment on above: Order Comment: Speci men Type: URINE SPECIMENOrdering Facility: [facility] Address: [address] [place] [address] Result Comment: Adul t Male and Female Nephrotic Criteria: <30 mg/g is considered normal to mildly increased 30-300 mg/g is considered moderately increased >300 mg/g is considered severely increased KDIGO. (2013). KDIGO 2012 Clinical Practice Guideline for the Evaluation and Management of Chronic Kidney Disease. Official Journal of the International Society of Nephrology, 3(1), 1-150. Performed By: #### U ACR ####[facility] [id number] [place] [address] [place] Creatinine (U) [Mass/Vol] 171.6 mg/dL Normal 20.0-300.0 [facility] Comment on above: Order Comment: Speci men Type: URINE SPECIMENOrdering Facility: [facility] Address: [address] [place] [address] Performed By: #### U ACR ####[facility] [id number] JI VEEDESK [id number] [place] CNPNon 08-19-2024 CNPN Telephone (PHAMTE) WENDY FORTE ([id number]) 1955 F Date Time Provider Department 08/19/24 JIGNA ARANA During your visit today, we recorded the following information about you: Jigna Arana RPh 08/19/2024 3:36 PM Signed [facility] Anticoagulation Episode Summary Anticoagulation Care Providers Provider Role Specialty Phone number Estephania Rodriguez MD Referring Internal Medicine [phone] Wendy Forte is a 69 year old year old female patient being evaluated today for a Telemanagement visit. Patient is currently on the following anticoagulant(s) Warfarin. Labs PT INR (no units) Date Value 07/10/2024 2.5 12/13/2021 2.2 11/01/2021 2.2 INR (no units) Date Value 08/19/2024 1.9 06/10/2024 2.5 03/07/2024 2.2 Hemoglobin (g/dL) Date Value 09/09/2023 12.9 07/31/2021 10.4 Hematocrit (%) Date Value 09/09/2023 40.6 07/31/2021 32.1 Platelet Count (k/uL) Date Value 09/09/2023 270 07/31/2021 405 Creatinine (mg/dL) Date Value 02/08/2024 0.74 09/09/2023 0.69 06/10/2023 0.75 07/31/2021 0.65 11/12/2020 0.71 07/03/2020 0.65 Bilirubin, Total (mg/dL) Date Value 09/09/2023 0.5 07/31/2021 0.4 ALT (U/L) Date Value 09/09/2023 32 07/31/2021 16 AST (U/L) Date Value 09/09/2023 26 07/31/2021 17 CrCl cannot be calculated (Patient's most recent lab result is older than the maximum 180 days allowed.). 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 Anticoagulation Episode Summary Current INR goal: 2.0-3.0 Assessment: INR result of 1.9 is SUBtherapeutic due to: unknown cause - did not speak to patient Plan: Current Warfarin Dosing As of 08/19/2024 Full warfarin instructions: 08/19: 3.75 mg; Otherwise 1.25 mg every [place]; 2.5 mg all other days Left voice message Advised patient to increase dose for 1 day only then resume weekly regimen Next lab INR check scheduled on 09/16/2024 Patient advised to call the PAC with any medication changes, bleeding/bruising concerns, recent changes in vitamin k consumption, if any procedures are coming up, if they have been ill or in the hospital, and if they have missed any doses of warfarin. Jigna Arana RPh Clinical Pharmacist, Pharmacy Anticoagulation Clinic Pharmacy Anticoagulation Clinic Pager: [phone]. Jigna Arana RPh 09/16/2024 4:44 PM Signed Patient was due to test INR today. Will continue to monitor for results. Follow up in one week if no results received. Patient's INR Goal range is - 2.0-3.0 PT INR (no units) Date Value 07/10/2024 2.5 12/13/2021 2.2 11/01/2021 2.2 INR (no units) Date Value 08/19/2024 1.9 06/10/2024 2.5 03/07/2024 2.2 Patient is in titration phase - No Patient has dosing provided until next INR - Yes Patient is on an injectable anticoagulant - No Jigna Arana, Jigna Hackett RPh 09/23/2024 5:12 PM Signed Wendy Elliottman was called and reminded to test INR today or as soon as possible. Left voice message. 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 - FLUoxetine (PROZAC) 40 mg capsule Take 1 capsule by mouth once daily. - IFEREX 150 150 mg iron capsule Take 1 capsule by mouth once daily. - metFORMIN ER (GLUCOPHAGE XR) 500 mg 24 hr tablet Take 2 tablets by mouth two times a day with meals. - metoprolol tartrate, short acting, (LOPRESSOR) 50 mg tablet Take 1 tablet by mouth two times a day. - rosuvastatin (CRESTOR) 5 mg tablet Take 1 tablet by mouth daily at bedtime. - warfarin (COUMADIN) 2.5 mg tablet Start with 2.5 mg daily except 1.25mg Thurs - insulin lispro (HUMALOG KWIKPEN INSULIN) 100 unit/mL Inject 2 Units subcutaneously daily with breakfast AND 4 Units daily with lunch AND 2 Units daily with dinner. Patient assistance medication. - semaglutide (OZEMPIC) 0.25 mg or 0.5 mg (2 mg/3 mL) pen Take 0.25mg weekly for 4 weeks then take 0.5mg weekly thereafter. Gets through [employer]. - insulin glargine 100 unit/mL (3 mL) Inject 36 Units subcutaneously daily at bedtime. Patient assistance medication - L. acidophilus/Bifid. animalis (DAILY PROBIOTIC ORAL) Take 1 capsule by mouth once daily. - estradiol (ESTRACE) 0.01 % (0.1 mg/gram) vaginal (more content not included)... Normal [facility] metabolic 2000 panelon 12-13-2024 Albumin [Mass/Vol] 3.8 g/dL Low 3.9-4.9 [facility] Comment on above: Order Comment: Speci men Type: BLOOD SPECIMENOrdering Facility: [facility] Address: [address] [place] [address] Performed By: #### 2 4323-8, 62636-2 ####[facility]CL[facility] [id number] [place] [address] [place] ALP [Catalytic activity/Vol] 153 U/L High 34-123 [facility] Comment on above: Order Comment: Speci men Type: BLOOD SPECIMENOrdering Facility: [facility] Address: [address] [place] [address] Performed By: #### 2 4323-8, 05175-6 ####[facility] [id number] [place] [address] [place] ALT [Catalytic activity/Vol] 27 U/L Normal 7-38 [facility] Comment on above: Order Comment: Speci men Type: BLOOD SPECIMENOrdering Facility: [facility] Address: [address] [place] [address] Performed By: #### 2 4323-8, 63360-6 ####[facility] [id number] [place] [address] [place] Anion gap [Moles/Vol] 11 mmol/L Normal 8-15 [facility] Comment on above: Order Comment: Speci men Type: BLOOD SPECIMENOrdering Facility: [facility] Address: [address] [place] [address] Performed By: #### 2 4323-8, 01287-5 ####[facility] [id number] [place] [id number] [place] AST [Catalytic activity/Vol] 31 U/L Normal 13-35 [facility] Comment on above: Order Comment: Speci men Type: BLOOD SPECIMENOrdering Facility: [facility] Address: [address] [place] [id number] Performed By: #### 2 4323-8, 79989-8 ####[facility] [id number] [place] [address] [place] Bilirubin [Mass/Vol] 0.5 mg/dL Normal 0.2-1.3 [facility] Comment on above: Order Comment: Speci men Type: BLOOD SPECIMENOrdering Facility: [facility] Address: [address] [place] [address] Performed By: #### 2 4323-8, 48645-0 ####[facility] [id number] [place] [address] [place] Calcium [Mass/Vol] 9.4 mg/dL Normal 8.5-10.2 [facility] Comment on above: Order Comment: Speci men Type: BLOOD SPECIMENOrdering Facility: [facility] Address: [address] [place] [address] Performed By: #### 2 4323-8, 79382-9 ####[facility] [id number] [place] [address] [place] Chloride [Moles/Vol] 100 mmol/L Normal 98-107 [facility] Comment on above: Order Comment: Speci men Type: BLOOD SPECIMENOrdering Facility: [facility] Address: [address] [place] [address] Performed By: #### 2 4323-8, 02747-8 ####[facility] [id number] [place] [address] [place] CO2 [Moles/Vol] 24 mmol/L Normal 22-30 [facility] Comment on above: Order Comment: Speci men Type: BLOOD SPECIMENOrdering Facility: [facility] Address: [address] [place], [place] [address] Performed By: #### 2 4323-8, 76228-4 ####[facility] [id number] [address] [address] [place] Creatinine [Mass/Vol] 0.72 mg/dL Normal 0.58-0.96 [facility] Comment on above: Order Comment: Akil gonzalez Type: BLOOD SPECIMENOrdering Facility: [facility] Address: [address] [place] [address] Performed By: #### 2 4323-8, ####[facility] [id number] [place] [address] [place] Creatinine and Glomerular filtration rate.predicted panel (S/P/Bld) 91 mL/min/1.73m??? Normal >=60 [facility] Comment on above: Order Comment: [facility] Type: BLOOD SPECIMENOrdering Facility: [facility] Address: [address] [place] [address] Result Comment: Chastity mated Glomerular Filtration Rate (eGFR) is calculated using the 2020 CKD-EPI creatinine equation. This equation utilizes serum creatinine, sex, and age as parameters. The creatinine assay has traceable calibration to isotope dilution-mass spectrometry. Refer to KDIGO guidelines for clinical interpretation. In patients with unstable renal function, e.g. those with acute kidney injury, the eGFR may not accurately reflect actual GFR. Performed By: #### 2 4323-8, ####[facility] [id number] [place] [place] [id number] [place] Glucose [Mass/Vol] 243 mg/dL High 74-99 [facility] Comment on above: Order Comment: Akil gonzalez Type: BLOOD SPECIMENOrdering Facility: [facility] Address: [address] [place] [address] Result Comment: The [place] Diabetes Association (ADA) provides guidance for cutoff values for fasting glucose and random glucose. The ADA defines fasting as no caloric intake for at least 8 hours. Fasting plasma glucose results between 100 to 125 mg/dL indicate increased risk for diabetes (prediabetes). Fasting plasma glucose results greater than or equal to 126 mg/dL meet the criteria for diagnosis of diabetes. In the absence of unequivocal hyperglycemia, results should be confirmed by repeat testing. In a patient with classic symptoms of hyperglycemia or hyperglycemic crisis, random plasma glucose results greater than or equal to 200 mg/dL meet the criteria for diagnosis of diabetes. Reference: Standards of Medical Care in Diabetes 2016, [place] Diabetes Association. Diabetes Care. 2016.39(Suppl 1). Performed By: #### 2 4323-8, 20655-1 ####[facility] LABCLIA [id number] [place] [address] [place] Potassium [Moles/Vol] 4.5 mmol/L Normal 3.7-5.1 [facility] Comment on above: Order Comment: Speci men Type: BLOOD SPECIMENOrdering Facility: [facility] Address: [address] [place] [address] Performed By: #### 2 4323-8, 99515-3 ####[facility]CL[facility] [id number] [place] [address] [place] Protein [Mass/Vol] 8.0 g/dL Normal 6.3-8.0 [facility] Comment on above: Order Comment: Speci men Type: BLOOD SPECIMENOrdering Facility: [facility] Address: [address] [place] [address] Performed By: #### 2 4323-8, 59657-3 ####[facility] LABIA [id number] [place] [address] [place] Sodium [Moles/Vol] 135 mmol/L Low 136-144 [facility] Comment on above: Order Comment: Speci men Type: BLOOD SPECIMENOrdering Facility: [facility] Address: [address] [place] [address] Performed By: #### 2 4323-8, 13466-4 ####[facility] [id number] [place] [address] [place] Urea nitrogen [Mass/Vol] 23 mg/dL High 7-21 [facility] Comment on above: Order Comment: Speci men Type: BLOOD SPECIMENOrdering Facility: [facility] Address: [address] [place] [address] Performed By: #### 2 4323-8, 73387-1 ####[facility]CL[facility] [id number] [place] [address] [place] [facility] Lipid 1996 panelon 4 Cholesterol [Mass/Vol] 176 mg/dL Normal <200 [facility] Comment on above: Order Comment: Speci men Type: BLOOD SPECIMENOrdering Facility: [facility] Address: [address] [place] [address] Result Comment: <200 mg/dL, Desirable 200-239 mg/dL, Borderline high >239 mg/dL, High Performed By: #### 2 4323-8, 96396-9 ####[facility]CL[facility] [id number] [address] STATES OF [facility] Cholesterol in HDL [Mass/Vol] 40 mg/dL Normal >39 [facility] Comment on above: Order Comment: Speci men Type: BLOOD SPECIMENOrdering Facility: [facility] Address: [address] [place] [address] Result Comment: 40-5 9 mg/dL, Acceptable >59 mg/dL, High: Negative risk factor for coronary heart disease <40 mg/dL, Low: Positive risk factor for coronary heart disease Performed By: #### 2 4323-8, 82357-5 ####[facility]CL[facility] [id number] [address] OF [facility] Cholesterol in LDL [Mass/Vol] 100 mg/dL High <100 [facility] Comment on above: Order Comment: Speci men Type: BLOOD SPECIMENOrdering Facility: [facility] Address: [address] [place] [address] Result Comment: <100 mg/dL, Optimal 100-129 mg/dL, Near optimal/above optimal 130-159 mg/dL, Borderline high 160-189 mg/dL, High >189 mg/dL, Very high Secondary prevention optimal LDL Cholesterol levels are recommended to be < 70 mg/dL Performed By: #### 2 4323-8, 07466-6 ####[facility]CL[facility] [id number] [place] [address] [place] Cholesterol in LDL/Cholesterol in HDL [Mass ratio] 2.50 {ratio} Normal <2.54 [facility] Comment on above: Order Comment: Speci men Type: BLOOD SPECIMENOrdering Facility: [facility] Address: [address] [place] [address] Result Comment: Refe rence: 1. National Cholesterol Education Program ATP III Guideline At-A-Glance Quick Desk Reference: National Heart, Lung, and Blood [place]. National Institutes of Health. 2001: NIH Publication No. 01-3305. 2. An International Atherosclerosis Society position paper: global recommendations for the management of dyslipidemia: executive summary, Atherosclerosis. 2014: 232(2):410-413. Performed By: #### 2 4323-8, 89467-6 ####[facility] [id number] [place] [address] [place] Cholesterol in VLDL [Mass/Vol] 36 mg/dL High <30 [facility] Comment on above: Order Comment: Akil men Type: BLOOD SPECIMENOrdering Facility: [facility] Address: [address] [place] [address] Performed By: #### 2 4323-8, 41223-4 ####[facility]CL[facility] [id number] [place] [address] [place] Cholesterol non HDL [Mass/Vol] 136 mg/dL High <130 [facility] Comment on above: Order Comment: Clarencei men Type: BLOOD SPECIMENOrdering Facility: [facility] Address: [address] [place] [address] Result Comment: <130 mg/dL, Optimal 130-159 mg/dL, Near optimal/above optimal 160-189 mg/dL, Borderline high 190-219 mg/dL, High >219 mg/dL, Very high Secondary prevention optimal non HDL Cholesterol levels are recommended to be <100 mg/dL Performed By: #### 2 4323-8, 58836-8 ####[facility]CL[facility] [id number] [place] [address] [place] Cholesterol.total/Choles terol in HDL [Mass ratio] 4.40 {ratio} Normal <5.10 [facility] Comment on above: Order Comment: Speci men Type: BLOOD SPECIMENOrdering Facility: [facility] Address: [address] [place] [address] Performed By: #### 2 4323-8, 08567-4 ####[facility]CL[facility] [id number] [address] [place] OF [facility] FASTING TIME 12 hrs Normal [facility] Comment on above: Order Comment: Speci men Type: BLOOD SPECIMENOrdering Facility: [facility] Address: [address] [place] [address] Performed By: #### 2 4323-8, 32359-2 ####[facility]CL[facility] [id number] [place] [address] [place] Triglyceride [Mass/Vol] 180 mg/dL High <150 [facility] Comment on above: Order Comment: Speci men Type: BLOOD SPECIMENOrdering Facility: [facility] Address: [address] [place] [address] Result Comment: <150 mg/dL, Normal 150-199 mg/dL, Borderline high 200-499 mg/dL, High >499 mg/dL, Very high Performed By: #### 2 4323-8, 49430-7 ####[facility]CL[facility] [id number] [place] [address] [place] PT panel Coag (PPP)on 2023 INR Coag (PPP) [Relative time] 1.9 {INR} High 0.9-1.3 [facility] Comment on above: Order Comment: Speci men Type: BLOOD SPECIMENOrdering Facility: [facility] Address: [address] [place] [address] Result Comment: Adela min K Antagonist (VKA) Therapeutic Range: INR 2 to 3 (Target INR of 2.5) Note: For patients treated with VKA drugs, such as warfarin, the [place] College of Chest Physicians 2012 Guideline recommends a therapeutic INR range of 2 to 3 (target INR of 2.5). This recommendation includes high-risk patients with antiphospholipid syndrome with previous arterial or venous thromboembolism, current-generation mechanical or bioprosthetic aortic heart valve replacement. Note: Patients with mechanical aortic valve replacement and additional risk factors for thromboembolic events (atrial fibrillation, previous thromboembolism, LV dysfunction, hypercoagulable conditions) or an older generation mechanical AVR (i.e., ball in-Cage) or any mechanical MVR should have a INR therapeutic range of 2.5 to 3.5 (target INR of 3). Leroy BURROUGHS, et al. Chest 2012, 141:7S-47S Sveta RA, et al. JAC 2017, 70: 252-289 Performed By: #### 3 4528-0 ####[facility] [id number] [place] [address] [place] PT Coag (PPP) [Time] 19.8 s High 9.7-13.0 [facility] Comment on above: Order Comment: Speci men Type: BLOOD SPECIMENOrdering Facility: [facility] Address: [address] [place] [address] Performed By: #### 3 4528-0 ####[facility] [id number] [place] [address] [place] CNOVon 07-25-2024 CNOV Office Visit (INTMWS ) WENDY FORTE ([id number]) 1955 F Date Time Provider Department 07/25/24 3:40 PM ESTEPHANIA RODRIGUEZ INTMWS During your visit today, we recorded the following information about you: Temperature Pulse Respiration Blood pressure 99 degrees 81/minute 16/minute 114/77 Weight 111.9 kg Estephania Rodriguez MD 07/30/2024 4:40 PM Signed This note was created using [email or web address].firiter. Subjective Wendy Forte is a 69 year old female. Patient presents with: F/U 6 months SUBJECTIVE: Wendy Forte is a 69 year old year old lady here today for 6 month follow up appointment for review of medical conditions. Wendy Forte is a 69-year-old female with a history of diabetes mellitus, presenting for follow-up after a fall at home on July 10. Wendy reports a fall at home on July 10, occurring between the bathroom and the hallway. She fell forward, hitting her face and back of her head. She denies experiencing lightheadedness, dizziness, or a sensation of impending syncope prior to the fall. She attributes the fall to poor balance and possibly tripping over something, but is uncertain of the exact cause. She notes difficulty laying down and getting comfortable due to soreness, but reports that a prescribed muscle relaxer is providing some relief. Wendy also reports two falls while on vacation in [place] with her son, both occurring when she bent over. She notes that she has difficulty maintaining balance when leaning forward and has learned to avoid this position to prevent falls. Additionally, Wendy reports bilateral lower extremity swelling and tenderness, which she attributes to the altitude in [place]. She notes that the swelling has improved since returning home, but her legs remain tender. She has been applying lotion to her legs and reports that the skin is becoming softer. Wendy is currently taking multiple medications, including fluoxetine, iron tablets, metoprolol, rosuvastatin, warfarin, and Plavix. She reports that she does not need a refill for metformin at this time. She is also receiving insulin and Ozempic through pharmaceutical companies. She denies any bleeding issues and reports that her A1c was 7.8% in June, improved from 9.6%. She is scheduled for a Coumadin check in the first week of August. PAST MEDICAL HISTORY Diagnosis Date Adjustment disorder with depressed mood Bladder wall thickening Diverticulitis 2023 Mild Hyperlipidemia 06/13/2009 Mixed stress and urge incontinence Mixed stress and urge incontinence OAB (overactive bladder) Obesity, morbid, BMI 40.0-49.9 ([facility]) Other and unspecified hyperlipidemia Type II or unspecified type diabetes mellitus without mention of complication, not stated as uncontrolled Unspecified essential hypertension Urinary frequency Current Outpatient Medications Medication Sig clopidogrel (PLAVIX) 75 mg tablet Take 1 tablet by mouth once daily. insulin lispro (HUMALOG KWIKPEN INSULIN) 100 unit/mL Inject 2 Units subcutaneously daily with breakfast AND 4 Units daily with lunch AND 2 Units daily with dinner. Patient assistance medication. semaglutide (OZEMPIC) 0.25 mg or 0.5 mg (2 mg/3 mL) pen Take 0.25mg weekly for 4 weeks then take 0.5mg weekly thereafter. Gets through [employer]. insulin glargine 100 unit/mL (3 mL) Inject 36 Units subcutaneously daily at bedtime. Patient assistance medication L. acidophilus/Bifid. animalis (DAILY PROBIOTIC ORAL) Take 1 capsule by mouth once daily. FLUoxetine (PROZAC) 40 mg capsule Take 1 capsule by mouth once daily. metoprolol tartrate, short acting, (LOPRESSOR) 50 mg tablet Take 1 tablet by mouth two times a day. IFEREX 150 150 mg iron capsule Take 1 capsule by mouth once daily. metFORMIN ER (GLUCOPHAGE XR) 500 mg 24 hr tablet Take 2 tablets by mouth two times a day with meals. warfarin (COUMADIN) 2.5 mg tablet Start with 2.5 mg daily except 1.25mg Thurs rosuvastatin (CRESTOR) 5 mg tablet Take 1 tablet by mouth daily at bedtime. estradiol (ESTRACE) 0.01 % (0.1 mg/gram) vaginal cream Use 1 g vaginally two times a week. Apply before bed. Apply a pea-sized amount of cream to the vagina/vulva. (Patient taking differently: Use 1 g vaginally two times a week. Apply before bed. Apply a pea-sized amount of cream to the vagina/vulva two times a week as needed.) Biotin 10,000 mcg cap Take 10,000 mcg by mouth once daily. With Keratin 100 MG blood sugar diagnostic (FREESTYLE TEST) test strip Check 4 time daily as directed. DX E11.65, Insulin: Yes (Patient taking differently: Check 4 time daily as directed. DX E11.65, Insulin: Yes Checks sugars about three times daily per patient.) Lancets lancets Test blood sugar(s) 4 times daily as directed. Dx: diabetes E11.65. Insulin: Yes insulin needles, DISPOSABLE, (PEN NEEDLE) 31 gauge x 5/16 ndle Use one needle per dose. (more content not included)... Normal [facility] CNPNon 07-12-2024 CNPN Telephone (PHARMN) WENDY FORTE ([id number]) 1955 F Date Time Provider Department 07/12/24 PHARMACIST PHARMN During your visit today, we recorded the following information about you: Camacho (Hunite)Kori 07/12/2024 4:28 PM Signed PATIENT CALL Patient called call center regarding results. Patient called and stated she had INR checked on Thursday at [facility], stated she was admitted for a short period of time. Per Care Everywhere from 07/10: Additional Instructions Your INR value was 2.5 which is a normal range for someone on Coumadin. Please relay this information to your physicians he do not need to have a repeat INR check for the month of July. Continue with Tylenol and add the muscle relaxer for pain control. Add [id number] lidocaine patches or IcyHot or topical pain creams as needed as well. Return to the ER should you have any further concerns or worsening of symptoms She stated she was advised to call and let PAC know of result and to test next the first week of Aug. Will route to [facility] as I. Kori Sauer (Hunite) Rene Schumacher [facility] 08/09/2024 3:55 PM Signed Patient was due to test INR today. Will continue to monitor for results. Follow up in one week if no results received. Rene Schumacher [facility] Rene Schumacher [facility] 08/16/2024 2:05 PM Signed Wendy Forte was called and reminded to test INR today or as soon as possible. Rene Schumacher RPh Allergies As of Date: 07/12/2024 Noted Allergy Reaction SULFA (SULFONAMIDE ANTIBIOTICS) 08/28/2006 2 - Rash Comments: BLISTERS Date Reviewed: 12/23/2023 Reviewed by: Tania Bolton RP - Fully Assessed Reason for Visit: Anticoagulation [8] Order(s):INR [8137306] Order #: [id number] Prescriptions as of 08/16/2024 - clopidogrel (PLAVIX) 75 mg tablet Take 1 tablet by mouth once daily. - FLUoxetine (PROZAC) 40 mg capsule Take 1 capsule by mouth once daily. - IFEREX 150 150 mg iron capsule Take 1 capsule by mouth once daily. - metFORMIN ER (GLUCOPHAGE XR) 500 mg 24 hr tablet Take 2 tablets by mouth two times a day with meals. - metoprolol tartrate, short acting, (LOPRESSOR) 50 mg tablet Take 1 tablet by mouth two times a day. - rosuvastatin (CRESTOR) 5 mg tablet Take 1 tablet by mouth daily at bedtime. - warfarin (COUMADIN) 2.5 mg tablet Start with 2.5 mg daily except 1.25mg Thurs - insulin lispro (HUMALOG KWIKPEN INSULIN) 100 unit/mL Inject 2 Units subcutaneously daily with breakfast AND 4 Units daily with lunch AND 2 Units daily with dinner. Patient assistance medication. - semaglutide (OZEMPIC) 0.25 mg or 0.5 mg (2 mg/3 mL) pen Take 0.25mg weekly for 4 weeks then take 0.5mg weekly thereafter. Gets through [employer]. - insulin glargine 100 unit/mL (3 mL) Inject 36 Units subcutaneously daily at bedtime. Patient assistance medication - L. acidophilus/Bifid. animalis (DAILY PROBIOTIC ORAL) Take 1 capsule by mouth once daily. - estradiol (ESTRACE) 0.01 % (0.1 mg/gram) vaginal cream Use 1 g vaginally two times a week. Apply before bed. Apply a pea-sized amount of cream to the vagina/vulva. - Biotin 10,000 mcg cap Take 10,000 mcg by mouth once daily. With Keratin 100 MG - blood sugar diagnostic (FREESTYLE TEST) test strip Check 4 time daily as directed. DX E11.65, Insulin: Yes - Lancets lancets Test blood sugar(s) 4 times daily as directed. Dx: diabetes E11.65. Insulin: Yes - insulin needles, DISPOSABLE, (PEN NEEDLE) 31 gauge x 5/16 ndle Use one needle per dose. One per day. - COMPOUNDED PRESCRIPTION Diabetic shoes with insoles. DX E11.65, E11,49 - COMPOUNDED PRESCRIPTION Hinged knee brace for left knee--Don Janine OA Reaction Web Knee brace. Dx Knee pain and decreased mobility secondary to degenerative arthritis 715.96 - COMPOUNDED PRESCRIPTION [facility] Meds Comments as of 02/21/2013: Problem List As Of Date 07/12/2024 Noted Resolved HTN (hypertension), benign [I10] Hyperlipidemia [E78.5] Type II diabetes mellitus, uncontrolled (HCC) [* URINARY FREQUENCY [R35.0] PANIC DISORDER WITHOUT AGORAPHOBIA [F41.0] 07/21/2008 GERD (gastroesophageal reflux disease) [K21.9] 04/05/2012 Heart palpitations [R00.2] 04/05/2012 Obesity, morbid, BMI 40.0-49.9 (HCC) [E66.01] Type 2 diabetes mellitus with hyperglycemia, wi*10/30/2014 PAF (paroxysmal atrial fibrillation) (HCC) [I48*11/01/2021 half-way current use of anticoagulant [Z79.01] 06/21/2022 Recurrent major depressive disorder, in full re*05/18/2023 Encounter Status:Closed by RENE SCHUMACHER on 08/09/24 Normal [facility] Brain/Head without Contrasto n 07-10-2024 Brain/Head without Contrast [facility] Imaging Services [address] [place] [address] [id number] Brain/Head without Contrast MR#: [id number] Acct: [id number] Name: WENDY FORTE Rep #: [id number] : 1955 F 69 From: Brian Saini MD PCP: Dr. Estephania Rodriguez MD Status: REG ER Study: Brain/Head without Contrast Date of Exam: 11/28 Exam# [id number] Ordering Dr: Dane Parrish DO [id number] INDICATION: head injury EXAMINATION: CT BRAIN - CT Head or Brain W/O Contrast Injection TECHNIQUE: Serial CT axial images were obtained of the head without intravenous contrast. A radiation dose optimization technique was used for this scan. RADIATION DOSAGE (If Supplied By Facility): CTDIvol/DLP = ( 44.99 ) / ( 829.85 ) mGy/mGycm COMPARISON: 08/27/[address] __ Findings: Serial CT axial images of the head without contrast. BRAIN PARENCHYMA: Diffuse periventricular hypoattenuation likely chronic white matter ischemic changes. Mild diffuse volume loss. No evidence of intraparenchymal hemorrhage or hyperattenuating extra-axial fluid collection. VASCULAR STRUCTURES: Atherosclerotic vascular calcifications. BONES: Right frontoethmoid sinus mucosal thickening. Tiny right maxillary sinus retention cyst. SCALP/REMAINING SOFT TISSUES: Left periorbital/frontal scalp hematoma. ASPECTS Score for Acute Strokes, if applicable: 10 CT/Brain/Head without Contrast IMPRESSION: Age-related changes as above, without evidence of acute intracranial hemorrhage in this noncontrast head CT. Scalp injury. Sinus disease. Electronically Signed: Brian Saini MD at 5:22 EST , CC: Dr. Estephania Rodriguez MD; Dane Parrish DO Final Cleaner: Signed Normal [facility] Emergency Department Summary on 07-10-2024 Emergency Department Summary [facility] Medical Records Department [address] [place] [address] Emergency Department Summary 07/10/24 MR#: [id number] Acct: [id number] Name: WENDY FORTE Rep #: [id number] : 1955 69 From: Dane Parrish DO PCP: Dr. Estephania Rodriguez MD Status:DEP ER Location: ED HPI History of Present Illness Chief Complaint: Fall Informant: patient and family Narrative Narrative: Patient is a 69-year-old female with past medical history of paroxysmal atrial fibrillation currently on Coumadin and Plavix. She also has a past medical history of hypertension hyperlipidemia and type 2 diabetes. She states she awoke roughly 30 minutes to 1 hour prior to arrival to go to the bathroom and as she was walking she tripped and fell striking her head on the ground. She states she did not have any type of LOC and the daughter whom she lives with states she was sleeping and heard the thud. She states she awoke and went and found her mother awake and on the ground however with her history of blood thinner use and the fact she struck her head there was concern for internal injury and she was brought in for evaluation. She does states she was able to get up and ambulate under her own power [facility] Medical History Paroxysmal atrial fibrillation Nail dystrophy Hypokalemia Hypertension Diabetes mellitus Hyperlipidemia Coronary artery disease Chronic respiratory failure with hypoxia Pneumonia due to COVID-19 virus Acute alteration in mental status Acute renal insufficiency Acidosis, lactic Acute hypotension Atrial fibrillation with rapid ventricular response Anxiety Urinary tract infection Paroxysmal atrial fibrillation with RVR Presence of stent in coronary artery ( 12/28/18) Old myocardial infarction Hx of non-ST elevation myocardial infarction (NSTEMI) S/P coronary artery stent placement ( 12/28/18) Essential hypertension Atherosclerotic heart disease of [place] coronary artery without angina pectoris Unstable angina NSTEMI (non-ST elevated myocardial infarction) Tachycardia Depression Hyperlipidemia Type 2 diabetes mellitus Chest pain Home Medications ???Medication ???Instructions ???Recorded ???Last Taken ???Type clopidogrel 75 mg tablet 75 mg PO DAILY Antiplatelet 07/10/21 Unknown History metformin 500 mg tablet,extended 1,000 mg PO BIDCM Diabetes 07/10/21 Unknown History release 24 hr metoprolol tartrate 50 mg tablet 50 mg PO BID BP 30 days #60 tabs 07/24/21 Unknown Rx polysaccharide iron complex 150 mg 150 mg PO DAILY 08/15/21 Unknown History iron capsule (iFerex 150) rosuvastatin 5 mg tablet 5 mg PO DAILY 08/15/21 Unknown History warfarin 2.5 mg tablet 2.5 mg PO DAILY 08/15/21 Unknown History insulin glargine 100 unit/mL (3 33 unit subcut DAILY Diabetes 04/18/22 Unknown History mL) subcutaneous pen (Lantus Solostar U-100 Insulin) biotin 10,000 mcg capsule 10,000 mcg PO DAILY 08/21/22 Unknown History fluoxetine 40 mg capsule 40 mg PO DAILY 02/25/23 Unknown History acetaminophen 500 mg capsule 500 mg PO Q6H PRN fever or pain 07/10/24 Unknown History methocarbamol 500 mg tablet 500 mg PO 4X/DAY PRN Muscle 07/10/24 Unknown Rx pain/spasm #40 tabs Allergy/AdvReac Type Severity Reaction Status Date / Time Sulfa (Sulfonamide Allergy Hives Verified 07/10/24 03:30 Antibiotics) Surgical History History of cholecystectomy Presence of coronary angioplasty implant and graft ( 12/28/18) Social History household members: children housing: house Smoking Status: Former smoker alcohol intake: never substance use type: does not use caffeine: No ROS ROS ED Constitutional Constitutional ED: Denies chills or fever(s) Eyes Eyes: Denies change in vision or diplopia ENT ENT ED: Denies sore throat Cardiovascular Cardiovascular: Reports other Details: Negative syncope ; Denies chest pain, palpitations or racing heartbeat Respiratory/Chest Respiratory/Chest: Denies cough or dyspnea Gastrointestinal Gastrointestinal: Denies abdominal pain, diarrhea, nausea or vomiting Genitourinary Genitourinary ED: Denies dysuria Musculoskeletal Musculoskeletal: Reports neck pain and other Details: Positive left shoulder and left rib pain ; Denies back pain Integumentary Reports other Details: Positive ecchymosis ; Denies Abrasions or rash Neurologic Neurologic: Denies headache(s), paresthesias or weakness Hematologic/Lymphatic Hematologic/Lymphatic : Reports easy bleeding and easy bruising EXAM Physical Exam Const Vital Signs: 07/10/24 03:30 07/10/24 03:34 07/10/24 05:29 Temperature 98.9 F Temperature Source Oral (more content not included)... Normal [facility] INRon 07-10-2024 INR Coag (Bld) [Relative time] 2.5 {INR} [facility] Prothrombin Time w/INRon INR Coag (PPP) [Relative time] 2.5 {INR} Normal [facility] Comment on above: Performed By: #### L 300.3900 #### [facility] [address] [place], [address] PT Coag (PPP) [Time] 26.5 s High 11.7-14.9 [facility] Comment on above: Performed By: #### L 300.3900 #### [facility] [address] [place], [address] Ribs Uni Min 3V w/PA Cheston 07-10-2024 Ribs Uni Min 3V w/PA Chest [facility] Imaging Services [address] [place], [place] [address] Ribs Uni Min 3V w/PA Chest MR#: [id number] Acct: [id number] Name: WENDY FORTE Rep #: [id number] : 1955 F 69 From: Brian Saini MD PCP: Dr. Estephania Rodriguez MD Status: REG ER Study: Ribs Uni Min 3V w/PA Chest Date of Exam: 07/10 Exam# [id number] Ordering Dr: Dane Parrish DO [id number] INDICATION: pain EXAMINATION/TECHNIQUE : X-RAY - XR Ribs Unilateral W/ PA Chest Min 3 Views COMPARISON: 07/08/2021 chest radiograph. Findings: Single frontal view of the chest. 4 additional dedicated views of the left ribs. LUNG PARENCHYMA: No definite acute focal airspace disease or mass lesion. PLEURA: No pleural effusion. No pneumothorax. HEART/[place]: Cardiomediastinal silhouette is unremarkable. BONES: Osseous structures are unremarkable for age. RAD/Ribs Uni Min 3V w/PA Chest IMPRESSION: No obvious acute displaced rib fracture. Chest with no definite acute disease. Electronically Signed: Brian Saini MD at 5:45 EST , CC: Dr. Estephania Rodriguez MD; Dane Parrish DO Final Cleaner: Signed Normal [facility] Shoulder min 2 Viewson 07-10 Shoulder min 2 Views [facility] Imaging Services [address] [place], [place] [address] Shoulder min 2 Views MR#: [id number] Acct: [id number] Name: WENDY FORTE Rep #: [id number] : 1955 F 69 From: Brian Saini MD PCP: Dr. Estephania Rodriguez MD Status: REG ER Study: Shoulder min 2 Views Date of Exam: 07/10/24 Exam# [id number] Ordering Dr: Dane Parrish DO [id number] INDICATION: pain. Fall. EXAMINATION/TECHNIQUE : X-RAY - LEFT XR Shoulder Min 2 Views COMPARISON: 07/08/2021 chest radiograph. __ FINDINGS: 2 views of the left shoulder. BONES: Normal anatomic alignment without evidence of fracture or subluxation. No concerning bony lesion or abnormal sclerosis to suggest lesion. JOINTS: Moderate acromioclavicular joint degenerative change. SOFT TISSUES: Unremarkable. RAD/Shoulder min 2 Views IMPRESSION: No acute osseous abnormality of the left shoulder. Electronically Signed: Brian Saini MD at 6:30 EST , CC: Dr. Estephania Rodriguez MD; Dane Parrish DO Final Cleaner: Signed Normal [facility] Spine Cervical without Contr ason 07-10-2024 Spine Cervical without Contras [facility] Imaging Services [address] [facility] [place], [place] [address] Spine Cervical without Contras MR#: [id number] Acct: [id number] Name: WENDY FORTE Rep #: [id number] : 1955 F 69 From: Brian Saini MD PCP: Dr. Estephania Rodriguez MD Status: REG ER Study: Spine Cervical without Contras Date of Exam: 09/09/23 Exam# [id number] Ordering Dr: Dane Parrish DO [id number] INDICATION: injury EXAMINATION: CT SPINE - CT Spine Cervical W/O Contrast Injection COMPARISON: None. __ A radiation dose optimization technique was used for this scan. Findings: Serial CT axial images through the cervical spine, with coronal and sagittal reformatted series. BONES: No evidence of cervical spine fracture or subluxation. No concerning bony lesion or abnormal sclerosis to suggest lesion. DISCS/JOINTS: Moderate to severe bilateral C5-C6 neuroforaminal narrowing. There is also severe central bony spinal canal stenosis at this C5-C6 level. SOFT TISSUES: Soft tissue structures are unremarkable. CT/Spine Cervical without Contras IMPRESSION: Severe central bony spinal canal stenosis. Neuroforaminal narrowing. Cervical spine without evidence of acute fracture. Electronically Signed: Brian Saini MD at 5:29 EST , CC: Dr. Estephania Rodriguez MD; Dane Parrish DO Final Cleaner: Signed Normal [facility] UA DIP, URINE (POC)on 2022 BILIRUBIN UA (POCT) Negative Negative [facility] CLARITY UA (POCT) Cloudy [facility] COLOR UA (POCT) Dark yellow [facility] GLUCOSE UA (POCT) Negative Negative mg/dL [facility] HEMOGLOBIN/BLOOD UA (POCT) Negative Negative [facility] KETONE UA (POCT) Negative Negative mg/dL [facility] LEUKOCYTES UA (POCT) Small [facility] NITRITE UA (POCT) Positive Abnormal Negative [facility] PH UA (POCT) 5.5 4.5 - 8.0 [facility] Protein Ql (U) 30 mg/dL Abnormal Negative mg/dL [facility] SPECIFIC GRAVITY UA (POCT) 1.020 1.005 - 1.030 [facility] UROBILINOGEN UA (POCT) 1.0 E.U./dL Ting l E.U./dL [facility] Absolute lymphocyte countOrd ered By: Dane Parrish on 02-19-2023 Lymphocytes Auto (Unsp spec) [#/Vol] 2.77 10*3/uL 0.83-4.51 [facility] Basophil percentageOrdered B y: Dane Parrish on 02-19-2023 Lactate [Moles/Vol] 1.4 mmol/L 0.4-2.0 [facility] Basophil percentage 0-5 SEEN /hpf 0-5 [facility] Basophils/100 WBC (Bld) 0.8 % 0-1 [facility] Chloride [Moles/Vol] 103 mmol/L 98-107 [facility] Eosinophils/100 WBC (Bld) 2.8 % 0-5 [facility] Glucose [Mass/Vol] 139 mg/dL 74-[address] [facility] Comment on above: Fasting Glucose resu lt greater than or equal to 126 mg/dL suggests DIABETES MELLITUS per A.D.A. criteria. Neutrophils (Bld) [#/Vol] 4.1 10*3/uL 2.0-7.7 [facility] Neutrophils/100 WBC (Bld) 52.3 % 47-70 [facility] Potassium [Moles/Vol] 3.9 mmol/L 3.5-5.1 [facility] Comment on above: Slight Hemolysis, Re sult may be falsely increased. Sodium [Moles/Vol] 135 mmol/L 136-[address] [facility] WBC (Bld) [#/Vol] 7.8 10*3/uL 4.4-11.[address] [facility] Bilirubin Test strip Ql (U)O rdered By: Dane Parrish on 02-19-2023 Bilirubin Ql (U) Negative Negative [facility] Blood erythrocytes count (nu mber/volume)Ordered By: Dane Parrish on 02-19-2023 RBC (Bld) [#/Vol] 4.44 10*6/uL 4.2-5.4 [facility] Blood hemoglobin measurement (mass/volume)Ordered By: Dane Parrish on 02-19-2023 Hemoglobin (Bld) [Mass/Vol] 13.2 g/dL 12.0-15.0 [facility] Blood lymphocytes/100 leukoc ytesOrdered By: Dane Parrish on 02-19-2023 Lymphocytes/100 WBC (Bld) 35.5 % 19-41 [facility] Blood monocytes/100 leukocyt esOrdered By: Dane Parrish on 02-19-2023 Monocytes/100 WBC (Bld) 8.2 % 0-10 [facility] Blood platelet mean volumeOr dered By: Dane Parrish on 02-19-2023 Platelet mean volume (Bld) [Entitic vol] 10.0 fL 6.2-12.0 [facility] Determination of erythrocyte mean corpuscular volume (MCV)Ordered By: Dane Parrish on 02-19-2023 MCV (RBC) [Entitic vol] 91.4 fL 81-99 [facility] Hematocrit Auto (Bld) [Volum e fraction]Ordered By: Dane Parrish on 02-19-2023 Hematocrit (Bld) [Volume fraction] 40.6 % 37-47 [facility] Ketones Test strip Ql (U)Ord ered By: Dane Parrish on 02-19-2023 Ketones Ql (U) Negative Negative [facility] Laboratory - Chemistry and C hemistry - challengeOrdered By: Dane Parrish on 02-19-2023 CO2 [Moles/Vol] 27.0 mmol/L 21.0-32.0 [facility] Urea nitrogen/Creatinine [Mass ratio] 16.1 mg/mg 10-20 [facility] - Hematology and Cell countsOrdered By: Dane Parrish on 02-19-2023 Erythrocyte distribution width (RBC) [Entitic vol] 45.2 fL 35.1-43.9 [facility] Erythrocyte distribution width (RBC) [Ratio] 13.4 % 11.6-14.6 [facility] Immature granulocytes/100 WBC (Bld) 0.400 % 0.0-0.9 [facility] Comment on above: IG% - Immature Granu locytes (promyelocytes, myelocytes and metamyelocytes) > 1% indicates that a LEFT SHIFT is Present. MCH (RBC) [Entitic mass] 29.7 pg 27.0-32.0 [facility] Nucleated RBC/100 WBC (Bld) [Ratio] 0 % 0-5 [facility] MCHC Auto (RBC) [Mass/Vol]Or dered By: Dane Parrish on 02-19-2023 MCHC (RBC) [Mass/Vol] 32.5 g/dL 32-36 [facility] Mucus LM Ql (Urine sed)Order ed By: Dane Parrish on 02-19-2023 Mucus Ql (Urine sed) 0 SEEN /hpf [facility] Nitrite Test strip Ql (U)Ord ered By: Dane Parrish on 02-19-2023 Nitrite Ql (U) Negative Negative [facility] No Panel InformationOrdered By: Dane Parrish on 02-19-2023 Estimated Creatinine Clearance Calc 54.18 ml/min [facility] Estimated GFR (MDRD) Amer 83 mL/min >60 [facility] Comment on above: GFR Calc Estimated GFR (MDRD) Non-Af Amer 69 mL/min >60 [facility] Comment on above: Non- GFR Calc Platelets bldOrdered By: Tobias Parrish on 02-19-2023 Platelets (Bld) [#/Vol] 303 10*3/uL 150-450 [facility] Protein Test strip Ql (U)Ord ered By: Dane Parrish on 02-19-2023 Protein Ql (U) 100 mg/dl Negative [facility] Serum or plasma calcium nigel urement (mass/volume)Ordered By: Dane Parrish on 02-19-2023 Calcium [Mass/Vol] 9.3 mg/dL 8.5-10.[address] [facility] Serum or plasma creatinine m easurement (mass/volume)Ordered By: Dane Parrish on 02-19-2023 Creatinine [Mass/Vol] 0.87 mg/dL 0.55-1.02 [facility] Comment on above: The validity of the calculated GFR & GFRAA in patients over 70 years has not been determined. Clinical correlation is essential. Serum or plasma urea nitroge n measurement (mass/volume)Ordered By: Dane Parrish on 02-19-2023 Urea nitrogen [Mass/Vol] 14 mg/dL 7-18 [facility] Squamous epithelial cells de tection in urine sediment by light microscopyOrdered By: Dane Parrish on 02-19-2023 Epithelial cells.squamous LM Ql (Urine sed) 0-5 SEEN /hpf 5-10 [facility] Thin prep Papanicolaou smear with manual screeningOrdered By: Dane Parrish on 02-19-2023 Thin prep Papanicolaou smear with manual screening 5 -15 [facility] Urine blood detectionOrdered By: Dane Parrish on 02-19-2023 RBC Ql (U) 10 /ul Negative [facility] RBC Ql (U) 0-5 SEEN /hpf 0-5 [facility] Urine clarityOrdered By: Tobias Parrish on 02-19-2023 Clarity (U) Cloudy Clear [facility] Urine color determinationOrd ered By: Dane Parrish on 02-19-2023 Color (U) Yellow Yellow [facility] Urine glucose detectionOrder ed By: Dane Parrish on 02-19-2023 Glucose Ql (U) Normal mg/dl Normal [facility] Urine leukocyte esterase det ection by dipstickOrdered By: Dane Parrish on 02-19-2023 Leukocyte esterase Test strip Ql (U) 100 /ul Negative [facility] Urine pHOrdered By: Dane cee on 02-19-2023 pH (U) 6.0 [pH] 5.0 - 8.0 [facility] Urine sediment bacteria coun t by microscopy (number/high power field)Ordered By: Dane Parrish on 02-19-2023 Bacteria LM.HPF (Urine sed) [#/Area] 3 /[HPF] None Seen [facility] Urine specific gravity measu rementOrdered By: Dane Parrish on 02-19-2023 Specific gravity (U) [Rel density] 1.010 1.002-1.030 [facility] Urobilinogen Auto test strip Ql (U)Ordered By: Dane Parrish on 02-19-2023 Urobilinogen Ql (U) Normal mg/dl Normal [facility] INR in Blood by Coagulation assayon 12-13-2021 INR Coag (Bld) [Relative time] 2.2 {INR} [facility] - Coagulationon 0 12-13-2021 PT Coag (PPP) [Time] 24.0 s 11.7-14.9 [facility] Work Phone: FECAL OCCULT BLOOD TESTon Lower GI hemoglobin IA Ql (Stl) Negative Negative [facility] Vital Signs Date Time Vital Sign Value Performing Clinician Facility 01-09-2025 16:41-0400 Body mass index (BMI) [Ratio] 41.27 kg/m2 Estephania Rodriguez MD Work Phone: [facility] 01-09-2025 16:41-0400 Body weight 112.5 kg Estephania Rodriguez MD Work Phone: [facility] 01-09-2025 16:41-0400 Diastolic blood pressure 60 mm[Hg] Estephania Rodriguez MD Work Phone: [facility] 01-09-2025 16:41-0400 Heart rate 71 /min Estephania Rodriguez MD Work Phone: [facility] 01-09-2025 16:41-0400 Respiratory rate 16 /min Estephania Rodriguez MD Work Phone: [facility] 01-09-2025 16:41-0400 SaO2% (BldA) [Mass fraction] 98 % Estephania Rodriguez MD Work Phone: [facility] 01-09-2025 16:41-0400 Systolic blood pressure 138 mm[Hg] Estephania Rodriguez MD Work Phone: [facility] 11-10-2024 14:40-0500 Body mass index (BMI) [Ratio] 40.36 kg/m2 Brayden Chaparro APRN.CNP Work Phone: [facility] 11-10-2024 14:40-0500 Body temperature 98.49 [degF] Brayden Chaparro APRN.CENTRAL OFFICE INSTALLER Work Phone: [facility] 11-10-2024 14:40-0500 Body weight 110 kg Brayden Chaparro APRN.CENTRAL OFFICE INSTALLER Work Phone: [facility] 11-10-2024 14:40-0500 Diastolic blood pressure 74 mm[Hg] Brayden Chaparro APRN.CENTRAL OFFICE INSTALLER Work Phone: [facility] 11-10-2024 14:40-0500 Heart rate 73 /min Brayden Chaparro APRN.CENTRAL OFFICE INSTALLER Work Phone: [facility] 11-10-2024 14:40-0500 Respiratory rate 24 /min Brayden Chaparro APRN.CENTRAL OFFICE INSTALLER Work Phone: [facility] 11-10-2024 14:40-0500 SaO2% (BldA) [Mass fraction] 97 % Brayden Chaparro APRN.CENTRAL OFFICE INSTALLER Work Phone: [facility] 11-10-2024 14:40-0500 Systolic blood pressure 172 mm[Hg] Brayden Chaparro APRN.CENTRAL OFFICE INSTALLER Work Phone: [facility] 07-25-2024 15:31-0500 Body mass index (BMI) [Ratio] 41.05 kg/m2 Estephania Rodriguez MD Work Phone: [facility] 07-25-2024 15:31-0500 Body temperature 99 [degF] Estephania Rodriguez MD Work Phone: [facility] 07-25-2024 15:31-0500 Body weight 111.9 kg Estephania Rodriguez MD Work Phone: [facility] 07-25-2024 15:31-0500 Diastolic blood pressure 77 mm[Hg] Estephania Rodriguez MD Work Phone: [facility] 07-25-2024 15:31-0500 Heart rate 81 /min Estephania Rodriguez MD Work Phone: [facility] 07-25-2024 15:31-0500 Respiratory rate 16 /min Estephania Rodriguez MD Work Phone: [facility] 07-25-2024 15:31-0500 SaO2% (BldA) [Mass fraction] 98 % Estephania Rodriguez MD Work Phone: [facility] 07-25-2024 15:31-0500 Systolic blood pressure 114 mm[Hg] Estephania Rodriguez MD Work Phone: [facility] 05-18-2023 16:54-0400 Diastolic blood pressure 78 mm[Hg] Estephania Rodriguez MD Work Phone: [facility] 05-18-2023 16:54-0400 Systolic blood pressure 138 mm[Hg] Estephania Rodriguez MD Work Phone: [facility] 05-18-2023 15:45-0400 Body temperature 98.91 [degF] Estephania Rodriguez MD Work Phone: [facility] 05-18-2023 15:45-0400 Body weight 112.04 kg Estephania Rodriguez MD Work Phone: [facility] 05-18-2023 15:45-0400 Heart rate 68 /min Estephania Rodriguez MD Work Phone: [facility] 05-18-2023 15:45-0400 Respiratory rate 18 /min Estephania Rodriguez MD Work Phone: [facility] 05-18-2023 15:45-0400 SaO2% (BldA) [Mass fraction] 97 % Estephania Rodriguez MD Work Phone: [facility] 04-20-2023 10:50-0400 Body height 162.6 cm Henri Banks APRN.NOLAN, PRISCILA Work Phone: [facility] 04-20-2023 10:50-0400 Body temperature 97.39 [degF] Henri Banks APRN.CNP, DNP Work Phone: [facility] 04-20-2023 10:50-0400 Body weight 110.59 kg Henri Banks APRN.CNP, DNP Work Phone: [facility] 04-20-2023 10:50-0400 Diastolic blood pressure 78 mm[Hg] Henri Banks APRN.CENTRAL OFFICE INSTALLER, DNP Work Phone: [facility] 04-20-2023 10:50-0400 Heart rate 86 /min Henri Banks APRN.CENTRAL OFFICE INSTALLER, DNP Work Phone: [facility] 04-20-2023 10:50-0400 SaO2% (BldA) [Mass fraction] 94 % Henri Banks APRN.CENTRAL OFFICE INSTALLER, DNP Work Phone: [facility] 04-20-2023 10:50-0400 Systolic blood pressure 148 mm[Hg] Henri Banks APRN.CENTRAL OFFICE INSTALLER, DNP Work Phone: [facility] 02-19-2023 09:42-0400 Diastolic blood pressure 88 mm[Hg] [facility] 02-19-2023 09:42-0400 Heart rate 74 /min [facility] 02-19-2023 09:42-0400 Respiratory rate 14 /min [facility] 02-19-2023 09:42-0400 SaO2% (BldA) [Mass fraction] 99 % [facility] 02-19-2023 09:42-0400 Systolic blood pressure 169 mm[Hg] [facility] 02-19-2023 06:28-0400 Body height 162.56 cm [facility] 02-19-2023 06:28-0400 Body mass index (BMI) [Ratio] 42.2 kg/m2 [facility] 02-19-2023 06:28-0400 Body temperature 96.8 [degF] [facility] 02-19-2023 06:28-0400 Body weight 111.6 kg [facility] 10-06-2022 15:39-0500 Body temperature 98.1 [degF] Estephania Rodriguez MD Work Phone: [facility] 10-06-2022 15:39-0500 Body weight 112.49 kg Estephania Rodriguez MD Work Phone: [facility] 10-06-2022 15:39-0500 Diastolic blood pressure 64 mm[Hg] Estephania Rodriguez MD Work Phone: [facility] 10-06-2022 15:39-0500 Heart rate 72 /min Estephania Rodriguez MD Work Phone: [facility] 10-06-2022 15:39-0500 Respiratory rate 18 /min Estephania Rodriguez MD Work Phone: [facility] 10-06-2022 15:39-0500 SaO2% (BldA) [Mass fraction] 98 % Estephania Rodriguez MD Work Phone: [facility] 10-06-2022 15:39-0500 Systolic blood pressure 120 mm[Hg] Estephania Rodriguez MD Work Phone: [facility] 08-27-2022 23:19-0500 SaO2% (BldA) [Mass fraction] 99 % Dr. Estephania Rodriguez Work Phone: [facility] Work Phone: 08-27-2022 21:13-0500 Body height 162.[address] Estephania Rodriguez Work Phone: [facility] Work Phone: 08-27-2022 21:13-0500 Body mass index (BMI) [Ratio] 39.4 kg/m2 Dr. Estephania Rodriguez Work Phone: [facility] Work Phone: 08-27-2022 21:13-0500 Body temperature 97.2 [degF] Dr. Estephania Rodriguez Work Phone: [facility] Work Phone: 08-27-2022 21:13-0500 Body weight 104.[address] Estephania Rodriguez Work Phone: [facility] Work Phone: 08-27-2022 21:13-0500 Diastolic blood pressure 104 mm[Hg] Dr. Estephania Rodriguez Work Phone: [facility] Work Phone: 08-27-2022 21:13-0500 Heart rate 83 /min Dr. Estephania Rodriguez Work Phone: [facility] Work Phone: 08-27-2022 21:13-0500 Respiratory rate 16 /min Dr. Estephania Rodriguez Work Phone: [facility] Work Phone: 08-27-2022 21:13-0500 Systolic blood pressure 219 mm[Hg] Dr. Estephania Rodriguez Work Phone: [facility] Work Phone: 08-21-2022 16:10-0500 Body mass index (BMI) [Ratio] 42.5 kg/m2 Dr. Estephania Rodriguez Work Phone: [facility] Work Phone: 08-21-2022 16:10-0500 Body weight 112.[address] Estephania Rodriguez Work Phone: [facility] Work Phone: 08-21-2022 16:10-0500 Diastolic blood pressure 78 mm[Hg] Dr. Estephania Rodriguez Work Phone: [facility] Work Phone: 08-21-2022 16:10-0500 Heart rate 76 /min Dr. Estephania Rodriguez Work Phone: [facility] Work Phone: 08-21-2022 16:10-0500 Respiratory rate 16 /min Dr. Estephania Rodriguez Work Phone: [facility] Work Phone: 08-21-2022 16:10-0500 Systolic blood pressure 138 mm[Hg] Dr. Estephania Rodriguez Work Phone: [facility] Work Phone: 06-06-2022 13:58-0400 Body weight 114.76 kg Janine Older AUDITING SPECIALIST.CENTRAL OFFICE INSTALLER Work Phone: [facility] 06-06-2022 13:58-0400 Diastolic blood pressure 70 mm[Hg] Janine Older AUDITING SPECIALIST.CENTRAL OFFICE INSTALLER Work Phone: [facility] 06-06-2022 13:58-0400 Heart rate 80 /min Janine Older AUDITING SPECIALIST.CENTRAL OFFICE INSTALLER Work Phone: [facility] 06-06-2022 13:58-0400 Respiratory rate 16 /min Janine Older AUDITING SPECIALIST.CENTRAL OFFICE INSTALLER Work Phone: [facility] 06-06-2022 13:58-0400 Systolic blood pressure 124 mm[Hg] Janine Older AUDITING SPECIALIST.CENTRAL OFFICE INSTALLER Work Phone: [facility] 11-15-2021 14:44-0500 Body height 162.[address] Estephania Rodriguez Work Phone: [facility] Work Phone: 11-15-2021 14:44-0500 Body mass index (BMI) [Ratio] 41.8 kg/m2 Dr. Estephania Rodriguez Work Phone: [facility] Work Phone: 11-15-2021 14:44-0500 Body weight 110.[address] Estephania Rodriguez Work Phone: [facility] Work Phone: 11-15-2021 14:44-0500 Diastolic blood pressure 78 mm[Hg] Dr. Estephania Rodriguez Work Phone: [facility] Work Phone: 11-15-2021 14:44-0500 Heart rate 90 /min Dr. Estephania Rodriguez Work Phone: [facility] Work Phone: 11-15-2021 14:44-0500 Respiratory rate 18 /min Dr. Esetphania Rodriguez Work Phone: [facility] Work Phone: 11-15-2021 14:44-0500 SaO2% (BldA) [Mass fraction] 96 % Dr. Estephania Rodriguez Work Phone: [facility] Work Phone: 11-15-2021 14:44-0500 Systolic blood pressure 124 mm[Hg] Dr. Estephania Rodriguez Work Phone: [facility] Work Phone: 10-15-2021 16:02-0500 Body weight 107.05 kg Estephania Rodriguez MD Work Phone: [facility] 10-15-2021 16:02-0500 Diastolic blood pressure 62 mm[Hg] Estephania Rodriguez MD Work Phone: [facility] 10-15-2021 16:02-0500 Heart rate 78 /min Estephania Rodriguez MD Work Phone: [facility] 10-15-2021 16:02-0500 Systolic blood pressure 114 mm[Hg] Estephania Rodriguez MD Work Phone: [facility] Encounters Encounter Date Encounter Type Care Provider Facility Start: 07-08-2025 End: 07-08-2025 ambulatory ESTEPHANIA RODRIGUEZ Facility:[facility] Start: 06-24-2025 End: 06-24-2025 ambulatory ESTEPHANIA Yariel RODRIGUEZ Facility:[facility] Start: 06-24-2025 Patient encounter procedure ESTEPHANIA RODRIGUEZ [facility] Start: 06-10-2025 End: 06-10-2025 ambulatory ESTEPHANIA Yariel RODRIGUEZ Facility:[facility] Start: 05-05-2025 End: 05-18-2025 Telephone encounter Jigna Arana [facility] Ambulatory Telemanagement Comment on above: Anticoagulation Tele phone Fu (INR Lab Result) Forms (Patient Silvina tance Program - Magali Nordisk/(Ozempic 0.25mg/0.5mg)) Start: 05-05-2025 End: 05-05-2025 ambulatory ESTEPHANIA Yariel RODRIGUEZ Facility:[facility] Start: 05-03-2025 End: 05-03-2025 Telephone encounter Jake Edwards [facility] Work Phone: [facility] Comment on above: Missed Appointment ( Primary care reschedule) Start: 04-10-2025 End: 04-10-2025 Telephone encounter Jw Missy [facility] Ambulatory Telemanagement Comment on above: Anticoagulation Tele phone Fu (Lab INR Result ) Start: 04-08-2025 End: 04-08-2025 ambulatory ESTEPHANIA D TALAMPAS Facility:[facility] Start: 04-05-2025 End: 04-05-2025 Telephone encounter Jake Edwards [facility] Work Phone: [facility] Comment on above: Patient Assistance ( Ozempic refills) Start: 03-27-2025 End: 03-27-2025 Telephone encounter Jake Edwards [facility] Work Phone: [facility] Comment on above: Appointment Start: 03-03-2025 End: 03-03-2025 Telephone encounter Jigna Arana [facility] Ambulatory Telemanagement Comment on above: Anticoagulation Tele phone Fu (INR Lab Result) Start: 03-03-2025 End: 03-03-2025 ambulatory ESTEPHANIA D TALAMPAS Facility:[facility] Start: 01-27-2025 End: 01-27-2025 ambulatory ESTEPHANIA D TALAMPAS Facility:[facility] Start: 01-23-2025 End: 01-23-2025 ambulatory ESTEPHANIA D TALAMPAS Facility:[facility] Start: 01-23-2025 End: 01-23-2025 Patient encounter procedure Jake Edwards [facility] Work Phone: [facility] Comment on above: Type 2 diabetes gagan itus with other specified complication, with long-term current use of insulin (HCC) (Primary Dx) Start: 01-23-2025 End: 01-23-2025 Telemedicine consultation with patient Jake Edwards [facility] Work Phone: [facility] Start: 01-09-2025 End: 01-09-2025 Office outpatient visit 25 minutes Estephania Rodriguez MD Work Phone: Internal Medicine [place] Comment on above: Type 2 diabetes gagan itus with other specified complication, with long-term current use of insulin (HCC) (Primary Dx); Hepatic steatosis; Mixed hyperlipidemia; Primary hypertension; Class 3 severe obesity due to excess calories with body mass index (BMI) of 40.0 to 44.9 in adult, unspecified whether serious comorbidity present; Encounter for long-term current use of medication; Breast cancer screening by mammogram; Anticoagulated on Coumadin Start: 01-09-2025 End: 01-09-2025 ambulatory ESTEPHANIA RODRIGUEZ Facility:[facility] Start: 01-02-2025 End: 2025 Follow-up encounter Jake Edwards [facility] Work Phone: [facility] Start: 12-31-2024 End: 12-31-2024 ambulatory ESTEPHANIA RODRIGUEZ Facility:[facility] Start: 12-30-2024 End: 12-30-2024 ambulatory Estephania Rodriguez Facility:[facility] Start: 12-22-2024 End: 01-10-2025 Telephone encounter Estephania Rodriguez MD Work Phone: Internal Medicine [place] Comment on above: rec'd 5 boxes of oze [facility] Start: 12-12-2024 End: 12-12-2024 ambulatory ESTEPHANIA RODRIGUEZ Facility:[facility] Start: 12-12-2024 End: 12-12-2024 Patient encounter procedure Jake Edwards [facility] Work Phone: [facility] Comment on above: Type 2 diabetes gagan itus with other specified complication, with long-term current use of insulin (HCC) (Primary Dx) Start: 12-12-2024 End: 12-12-2024 Telemedicine consultation with patient Jake Edwards [facility] Work Phone: [facility] Start: 12-09-2024 End: 01-09-2025 Admission to same day surgery center Estephania Rodriguez MD Work Phone: Ambulatory Surgery Comment on above: Outpatient [place] py (Patient is overdue for colorectal cancer screening since 11/01/2022. Patient will need consult with Erick Talbert CNP prior to colorectal cancer screening. ) Start: 12-09-2024 End: 01-09-2025 ambulatory Estephania Rodriguez MD Work Phone: Ambulatory Surgery Start: 12-05-2024 End: 12-05-2024 Telephone encounter Jw Missy [facility] Ambulatory Telemanagement Comment on above: Anticoagulation Tele phone Fu (Lab INR Result ) Start: 12-03-2024 End: 12-03-2024 [facility] Facility[facility] Start: 11-21-2024 End: 11-21-2024 Telephone encounter Jake Edwards [facility] Work Phone: [facility] Comment on above: Patient Update Start: 11-14-2024 End: 11-14-2024 Telephone encounter Jake Edwards [facility] Work Phone: [facility] Comment on above: Patient Update (Live r ultrasound) Start: 11-14-2024 End: 11-14-2024 [facility] Start: 11-14-2024 End: 11-14-2024 Patient encounter procedure Jake Edwards [facility] Work Phone: [facility] Comment on above: Type 2 diabetes gagan itus with other specified complication, with long-term current use of insulin (HCC) (Primary Dx) Start: 11-14-2024 End: 11-14-2024 Telemedicine consultation with patient Jake Edwards [facility] Work Phone: [facility] Start: 11-10-2024 End: 11-10-2024 Subsequent hospital visit by physician Wilfrid [facility] Work Phone: Radiology Comment on above: Acute cough [R05.1] Start: 11-10-2024 End: 11-10-2024 ambulatory [facility] Start: 11-10-2024 End: 11-10-2024 Patient encounter procedure Brayden Chaparro APRN.CNP Work Phone: [place] [facility] Comment on above: Acute cough (Primary Dx); Bacterial pneumonia Start: 11-07-2024 End: 11-07-2024 Telephone encounter Jake Edwards [facility] Work Phone: [facility] Comment on above: Missed Appointment ( Primary care reschedule) Anticoagulation Tele phone Fu (Lab INR Result ) Start: 11-05-2024 End: 11-05-2024 [facility] Facility:[facility] Start: 10-24-2024 End: 10-24-2024 Telephone encounter Estephania Rodriguez MD Work Phone: Internal Medicine [place] Comment on above: Results Start: 10-19-2024 End: 11-17-2024 Telephone encounter Estephania Rodriguez MD Work Phone: [facility] Comment on above: Forms (Patient Silvina tance Program /Chrissy Cares Renewal (Basaglar & Humalog Kwikpens)) Start: 10-14-2024 End: 10-19-2024 Telephone encounter Estephania Rodriguez MD Work Phone: Internal Medicine [place] Comment on above: new application need ed for 2024 from [facility]. Start: 10-03-2024 End: 10-03-2024 ambulatory [facility]PHANIA [facility] Facility:[facility] Start: 10-03-2024 End: 10-03-2024 Patient encounter procedure Jake Edwards [facility] Work Phone: [facility] Comment on above: Type 2 diabetes gagan itus with other specified complication, with long-term current use of insulin (HCC) (Primary Dx) Start: 10-03-2024 End: 10-03-2024 Telemedicine consultation with patient Jake Edwards [facility] Work Phone: [facility] Start: 09-27-2024 End: 09-27-2024 Telephone encounter Pharmacist [facility] Comment on above: Anticoagulation Start: 09-26-2024 End: 09-26-2024 Telephone encounter Jw Roberts [facility] Ambulatory Telemanagement Comment on above: Anticoagulation Tele phone Fu (Lab INR Result ) Start: 09-24-2024 End: 09-24-2024 [facility] Facility:[facility] Start: 08-22-2024 End: 08-22-2024 Telephone encounter Jakedidier Andersongo [facility] Work Phone: [facility] Comment on above: Results Start: 08-19-2024 End: 08-19-2024 Telephone encounter Jigna Arana [facility] Ambulatory Telemanagement Comment on above: Anticoagulation Tele phone Fu (INR Lab Result) Start: 08-19-2024 End: 08-19-2024 ambulatory ESTEPHANIA RODRIGUEZ Facility:[facility] Start: 07-25-2024 End: 07-25-2024 Office outpatient visit 25 minutes Estephania Rodriguez MD Work Phone: Internal Medicine [place] Comment on above: Type 2 diabetes gagan itus with other specified complication, with long-term current use of insulin (HCC) (Primary Dx); Fall, sequela; Bilateral lower extremity edema; Stasis dermatitis of both legs; Panic disorder without agoraphobia; PAF (paroxysmal atrial fibrillation) ([facility]); Mixed hyperlipidemia; Anticoagulated on Coumadin; Encounter for immunization Start: 07-25-2024 End: 07-25-2024 ambulatory ESTEPHANIA RODRIGUEZ Facility:[facility] Start: 07-12-2024 End: 08-09-2024 Telephone encounter Pharmacist [facility] Comment on above: Anticoagulation Start: 07-10-2024 End: 07-10-2024 Emergency department patient visit Estephania Rodriguez Facility:[facility] Start: 06-29-2024 End: 07-04-2024 ambulatory Estephania Rodriguez MD Work Phone: Internal Medicine [place] [id number] Start: 06-27-2024 End: 06-27-2024 Refill Estephania Rodriguez MD Work Phone: Internal [facility] Comment on above: Refill Request Start: 06-13-2024 End: 06-13-2024 Telephone encounter Jw Roberts [facility] Ambulatory Telemanagement Comment on above: Anticoagulation Tele phone Fu (Lab INR Result ) Start: 06-13-2024 End: 06-13-2024 Patient encounter procedure Jake Edwards [facility] Work Phone: [facility] Comment on above: Type 2 diabetes gagan itus with other specified complication, with long-term current use of insulin (HCC) (Primary Dx); Type 2 diabetes mellitus with hyperglycemia, without long-term current use of insulin (HCC) Start: 06-13-2024 End: 06-13-2024 Telemedicine consultation with patient Jake Edwards [facility] Work Phone: [facility] Start: 05-30-2024 End: 05-30-2024 Telephone encounter Jake Edwards [facility] Work Phone: [facility] Comment on above: Appointment Start: 05-25-2024 End: 05-25-2024 Telephone encounter Estephania Rodriguez MD Work Phone: Internal Medicine [place] Comment on above: rec'd ozempic 0.25mg /0.5mg 1X3 ml prefilled .68mg/ml Start: 04-29-2024 End: 05-11-2024 ambulatory Jake Edwards [facility] Work Phone: [facility] Comment on above: Patient Assistance P rogram (Ozempic 0.25/0.5mg) Start: 04-11-2024 End: 09-13-2024 Telephone encounter Estephania Rodriguez MD Work Phone: Family [facility] Start: 03-23-2024 End: 03-23-2024 Patient encounter procedure Jake Edwards [facility] Work Phone: [facility] Comment on above: Type 2 diabetes gagan itus with other specified complication, with long-term current use of insulin (HCC) (Primary Dx) Start: 03-23-2024 End: 03-23-2024 Telemedicine consultation with patient Jake Edwards [facility] Work Phone: [facility] Start: 03-21-2024 Telephone encounter Jake buchanan [facility] Work Phone: [facility] Comment on above: Pharmacy Patient Ass istance Program (Ozempic Application Update) Start: 03-08-2024 Telephone encounter Rene Schumacher [facility] Ambulatory Telemanagement Comment on above: Anticoagulation Tele phone Fu (Lab INR result) Start: 02-10-2024 Telephone encounter Radha SOLO Navigation Comment on above: Results (Potassium) Start: 02-09-2024 Telephone encounter Rene Schumacher [facility] Ambulatory Telemanagement Comment on above: Anticoagulation Tele phone Fu (Lab INR result) Start: 01-25-2024 End: 01-25-2024 Patient encounter procedure Jake Edwards [facility] Work Phone: [facility] Comment on above: Type 2 diabetes gagan itus with hyperglycemia, without long-term current use of insulin (HCC) (Primary Dx); Type 2 diabetes mellitus with other specified complication, with long-term current use of insulin (HCC) Start: 01-25-2024 End: 01-25-2024 Telemedicine consultation with patient Jake Edwards [facility] Work Phone: [facility] Start: 01-13-2024 Telephone encounter Radha SOLO Navigation Start: 01-11-2024 ambulatory Jake Edwards [facility] Work Phone: [facility] Comment on above: Pharmacy Patient Ass istance Program (Ozempic, (Basaglar and Humalog listed for 2024 renewal)) Start: 01-07-2024 Telephone encounter Mariam Ellington [facility] Ambulatory Telemanagement Comment on above: Anticoagulation Tele phone Fu (Lab INR) Start: 12-31-2023 Telephone encounter Tania Bolton [facility] Comment on above: Patient Question (Po tassium Supplementation) Start: 12-24-2023 Telephone encounter Jake buchanan [facility] Work Phone: [facility] HB-[id number] Comment on above: patient update on me dication Start: 12-23-2023 End: 12-23-2023 ambulatory Jake Edwards [facility] Work Phone: [facility] Comment on above: Type 2 diabetes gagan itus with hyperglycemia, without long-term current use of insulin (HCC) (Primary Dx); Type 2 diabetes mellitus with other specified complication, with long-term current use of insulin (HCC); Medication management Start: 12-23-2023 End: 12-23-2023 Telemedicine consultation with patient Jake Edwards [facility] Work Phone: [facility] Start: 12-01-2023 Telephone encounter Radha SOLO Navigation Start: 11-25-2023 End: 11-25-2023 ambulatory Jake Edwards [facility] Work Phone: [facility] Comment on above: Type 2 diabetes gagan itus with hyperglycemia, without long-term current use of insulin (HCC) (Primary Dx); Medication management Start: 11-25-2023 End: 11-25-2023 Telemedicine consultation with patient Jake Edwards [facility] Work Phone: [facility] Start: 11-24-2023 Telephone encounter Radha SOLO Navigation Comment on above: Patient Update Start: 11-18-2023 Telephone encounter Radha SOLO Navigation Comment on above: pt assistance chrissy care application form Start: 11-17-2023 Telephone encounter Rene Schumacher [facility] Ambulatory Telemanagement Comment on above: Anticoagulation Tele phone Fu (Lab INR result) Start: 11-13-2023 Telephone encounter Pharmacist [facility] Comment on above: Appointment (Primary Care Pharmacy) Start: 11-12-2023 ambulatory Jake Edwards [facility] Work Phone: [facility] Start: 11-12-2023 Telephone encounter Radha SOLO Navigation Start: 11-06-2023 Telephone encounter Radha SOLO Navigation Start: 10-30-2023 Telephone encounter Laila canales APRN.CNP Work Phone: Internal Medicine [place] Comment on above: Anticoagulation Tele phone Fu (INR Lab Result) Start: 10-28-2023 Social Work Radha barger Start: 10-19-2023 Telephone encounter Radha SOLO Navigation Comment on above: Patient Assistance Start: 07-31-2023 Telephone encounter Mariam Ellington [facility] Ambulatory Telemanagement Comment on above: Anticoagulation Tele phone Fu (Lab INR) Start: 07-22-2023 ambulatory Estephania hickey MD Work Phone: Internal Medicine [facility] Start: 07-08-2023 Telephone encounter [facility] Ambulatory Telemanagement Comment on above: Anticoagulation Tele phone Fu (Home INR) Start: 06-11-2023 Telephone encounter Mariam Ellington [facility] Ambulatory Telemanagement Comment on above: Anticoagulation Tele phone Fu (Lab INR) Start: 05-18-2023 End: 05-18-2023 Office outpatient visit 25 minutes Estephania Rodriguez MD Work Phone: Internal Medicine [place] Comment on above: Type 2 diabetes gagan itus with hyperglycemia, without long-term current use of insulin (HCC) (Primary Dx); Mixed hyperlipidemia; HTN (hypertension), benign; Obesity, morbid, BMI 40.0-49.9 (HCC); Encounter for long-term current use of medication; Encounter for immunization; Anticoagulated on Coumadin; Recurrent major depressive disorder, in full remission (HCC) Start: 04-20-2023 Telephone encounter Henri peraza APRN.CNP, PRISCILA Work Phone: Urology Comment on above: Patient Question; Or ders Start: 04-20-2023 End: 04-20-2023 Patient encounter procedure Henri Banks APRN.NOLAN, PRISCILA Work Phone: Urology Comment on above: Recurrent UTI (Prima ry Dx); Mixed stress and urge incontinence; Bladder wall thickening; OAB (overactive bladder) Start: 04-16-2023 Refill Estephania hickey MD Work Phone: Internal Medicine [place] Comment on above: Refill Request Start: 04-15-2023 Telephone encounter [facility] Ambulatory Telemanagement Comment on above: Anticoagulation Tele phone Fu (Home INR result) Start: 02-19-2023 Telephone encounter Estephania fonseca MD Work Phone: Internal Medicine [place] Comment on above: Patient Update Start: 02-19-2023 End: 02-19-2023 Emergency department patient visit [facility]gency Department Start: 02-16-2023 Telephone encounter Estephania fonseca MD Work Phone: Internal Medicine [place] Comment on above: urine symptoms Start: 02-13-2023 Telephone encounter Laila canales APRN.CNP Work Phone: Internal Medicine [place] Comment on above: Results Start: 02-11-2023 Telephone encounter [facility] Telemanagement Comment on above: Anticoagulation Tele phone Fu (Home INR result) Start: 02-10-2023 Telephone encounter Estephania fonseca MD Work Phone: Internal Medicine [place] Comment on above: Urine CX order neede d Start: 12-09-2022 Telephone encounter Laila canales AUDITING SPECIALISTStarCENTRAL OFFICE INSTALLER Work Phone: Internal Medicine [place] Comment on above: Results Start: 12-08-2022 Telephone encounter Jw Roberts [facility] Ambulatory Telemanagement Comment on above: Anticoagulation (Lab INR Result ) Start: 11-17-2022 Telephone encounter Estephania fonseca MD Work Phone: Internal Medicine [place] Comment on above: Results Start: 11-13-2022 Telephone encounter Mariam Ellington [facility] Ambulatory Telemanagement Comment on above: Anticoagulation Tele phone Fu (Home INR); Opened In Error Start: 11-12-2022 Telephone encounter Estephania fonseca MD Work Phone: Internal Medicine [place] Comment on above: approval from [facility] for pt assistance Start: 11-11-2022 Telephone encounter Estephania fonseca MD Work Phone: Internal Medicine [place] Comment on above: Patient Question Start: 11-10-2022 Telephone encounter [facility]w [facility] Ambulatory Telemanagement Comment on above: Anticoagulation (Lab INR) Start: 10-22-2022 Telephone encounter Estephania fonseca MD Work Phone: Internal Medicine [place] Comment on above: Forms (Fax from [facility]) Start: 10-17-2022 End: 10-17-2022 ambulatory Ezio High [facility] Work Phone: [facility] Comment on above: Type 2 diabetes gagan itus with other specified complication, with long-term current use of insulin (HCC) (Primary Dx) Start: 10-17-2022 End: 10-17-2022 Telemedicine consultation with patient Ezio High [facility] Work Phone: [facility] Start: 10-15-2022 Telephone encounter Estephania fonseca MD Work Phone: Internal Medicine [place] Comment on above: Medication question (Has Plavix been discontinued ) Start: 10-06-2022 End: 10-06-2022 Office outpatient visit 25 minutes Estephania Rodriguez MD Work Phone: Internal Medicine [place] Comment on above: Type 2 diabetes gagan itus with hyperglycemia, without long-term current use of insulin (HCC) (Primary Dx); Mixed hyperlipidemia; HTN (hypertension), benign; PAF (paroxysmal atrial fibrillation) ([facility]); Bilateral leg edema; Class 3 severe obesity due to excess calories with serious comorbidity and body mass index (BMI) of 45.0 to 49.9 in adult (HCC) Start: 09-15-2022 Telephone encounter [facility]w [facility] Ambulatory Telemanagement Comment on above: Anticoagulation (INR Result) Start: 09-09-2022 Telephone encounter Radha Diego Navigation Comment on above: prescription assista nce Start: 08-27-2022 End: 08-27-2022 Emergency department patient visit Dr. Estephania Rodriguez Work Phone: [facility]Emergency Department Start: 08-25-2022 Telephone encounter [facility]w [facility] Ambulatory Telemanagement Comment on above: Anticoagulation Tele phone Fu (Lab INR Result ) Start: 08-21-2022 End: 08-21-[address] Estephania Rodriguez Work Phone: [facility] Start: 08-11-2022 Telephone encounter Jw [facility] Ambulatory Telemanagement Comment on above: Anticoagulation Tele phone Fu (Lab INR Result ) Start: 08-04-2022 Refill Estephania hickey MD Work Phone: Internal [facility] Comment on above: Refill Request Rx refill; discontin ued medication Start: 07-30-2022 Telephone encounter Janine Dumont APRN.CNP Work Phone: Internal [facility] Comment on above: Results Start: 07-25-2022 End: 07-25-2022 ambulatory Ezio High [facility] Work Phone: [facility] Comment on above: Type 2 diabetes gagan itus with other specified complication, with long-term current use of insulin (HCC) (Primary Dx) Start: 07-25-2022 End: 07-25-2022 Telemedicine consultation with patient Ezio High RP Work Phone: [facility] Start: 07-23-2022 Telephone encounter Estephania fonseca MD Work Phone: Internal Medicine [place] Comment on above: Orders Start: 07-11-2022 End: 07-11-2022 ambulatory Ezio High [facility] Work Phone: [facility] Comment on above: Type 2 diabetes gagan itus with other specified complication, with long-term current use of insulin (HCC) (Primary Dx) Start: 07-11-2022 End: 07-11-2022 Telemedicine consultation with patient Ezio High [facility] Work Phone: [facility] Start: 07-10-2022 Telephone encounter Estephania fonseca MD Work Phone: Internal Medicine [place] Comment on above: rec'd 2 boxes of boris tus Start: 07-04-2022 Telephone encounter Janine Dumont APRN.CNP Work Phone: Internal Medicine [place] Comment on above: Results Start: 07-04-2022 End: 07-04-2022 ambulatory Ezio High [facility] Work Phone: [facility] Comment on above: Type 2 diabetes gagan itus with other specified complication, with long-term current use of insulin (HCC) (Primary Dx) Start: 07-04-2022 End: 07-04-2022 Telemedicine consultation with patient Ezio High RP Work Phone: [facility] Start: 07-01-2022 Telephone encounter Rene Schumacher [facility] Ambulatory Telemanagement Comment on above: Anticoagulation Tele phone Fu prescription assista nce Start: 06-17-2022 Documentation procedure [facility]og elizabeth Coordinator [facility] Start: 06-17-2022 Letter encounter Mammography Coordinator [facility] Department Start: 06-17-2022 End: 06-17-2022 Subsequent hospital visit by physician Bone Density [facility] Work Phone: Radiology Comment on above: Screening for osteop orosis [Z13.820] Start: 06-06-2022 End: 06-06-2022 Patient encounter procedure Janine Dumont APRNeeruCENTRAL OFFICE INSTALLER Work Phone: Internal Medicine [place] Comment on above: Type 2 diabetes gagan itus with hyperglycemia, without long-term current use of insulin (HCC) (Primary Dx); HTN (hypertension), benign; Mixed hyperlipidemia; Need for influenza vaccination; Screening for osteoporosis; Asymptomatic menopause Start: 06-06-2022 Telephone encounter Jigna Arana [facility] Ambulatory Telemanagement Comment on above: Anticoagulation Tele phone Fu Start: 05-09-2022 Telephone encounter Pretty Singh [facility] Ambulatory Telemanagement Comment on above: Anticoagulation Tele phone Fu (Lab INR) Start: 04-29-2022 Refill Estephania hickey MD Work Phone: [facility] [place] Comment on above: Refill Request Start: 04-25-2022 Telephone encounter Jigna Arana [facility] Comment on above: Anticoagulation Tele phone Fu (INR Lab Result) Start: 04-03-2022 Telephone encounter Estephania fonseca MD Work Phone: [facility] [place] Comment on above: rec'd 2 boxes of boris miless from [facility] Start: 03-31-2022 Telephone encounter [facility] Comment on above: Anticoagulation Tele phone Fu (Lab INR Result) Start: 03-28-2022 Telephone encounter Radha Diego Navigation Comment on above: prescription assista nce Start: 03-08-2022 Telephone encounter Chester moore MD Work Phone: [facility] [place] Comment on above: Opened In Error Anticoagulation Start: 03-05-2022 ambulatory Estephania hickey MD Work Phone: [facility] [place] Start: 02-14-2022 Telephone encounter Jigna Arana [facility] Comment on above: Anticoagulation Tele phone Fu Start: 01-21-2022 End: 01-21-2022 ambulatory Ezio High [facility] Work Phone: [facility] Comment on above: Type 2 diabetes gagan itus with other specified complication, with long-term current use of insulin (HCC) (Primary Dx) Start: 01-21-2022 End: 01-21-2022 Telemedicine consultation with patient Ezio High [facility] Work Phone: [facility] Start: 12-31-2021 Telephone encounter Radha Diego Jean Comment on above: prescription assista nce Start: 12-27-2021 Telephone encounter Rene Schumacher [facility] Comment on above: Anticoagulation Tele phone Fu (Lab INR result) Start: 12-13-2021 Telephone encounter Estephania fonseca MD Work Phone: [facility] [place] Comment on above: Anticoagulation Anticoagulation (INR Lab Result) Start: 12-13-2021 End: 12-13-[address] Estephania Rodriguez Work Phone: [facility], Specimen Start: 12-02-2021 Telephone encounter Estephania fonseca MD Work Phone: [facility] [place] Comment on above: Anticoagulation Start: 11-26-2021 End: 11-26-2021 ambulatory Ezio High [facility] Work Phone: [facility] Comment on above: Type 2 diabetes gagan itus with other specified complication, with long-term current use of insulin (HCC) (Primary Dx) Start: 11-26-2021 End: 11-26-2021 Telemedicine consultation with patient Ezio High [facility] Work Phone: [facility] Start: 11-15-2021 End: 11-15-[address] Estephania Rodriguez Work Phone: [facility] Start: 10-15-2021 End: 10-15-2021 Patient encounter procedure Estephania Rodriguez MD Work Phone: [facility] [place] Comment on above: Cellulitis of right eyelid (Primary Dx); Obesity, morbid, BMI 40.0-49.9 (HCC); Type 2 diabetes mellitus with hyperglycemia, with long-term current use of insulin (HCC); Colon cancer screening; Mixed hyperlipidemia; PAF (paroxysmal atrial fibrillation) (HCC); Anticoagulated on Coumadin Procedures Date Procedure Procedure Detail Performing Clinician Start: 11-10-2024 Radiologic exam ches t 2 views Brayden Chaparro AUDITING SPECIALIST.CENTRAL OFFICE INSTALLER Work Phone: Start: 07-25-2024 PFIZER-BIONTECH COVI D-19 VACCINE AGE 12+ YR (COMIRNATY) Estephania Rodriguez MD Work Phone: Start: 07-10-2024 INR in Platelet poor plasma by Coagulation assay [facility] Provider Start: 05-18-2023 INFLUENZA VACCINE, P RSV FREE, AGE 65+ YR, HIGH DOSE, QUADRIVALENT (FLUZONE HIGH-DOSE) Estephania Rodriguez MD Work Phone: Start: 04-20-2023 Urnls dip stick/tabl et rgnt auto w/o microscopy Henri Banks AUDITING SPECIALIST.CENTRAL OFFICE INSTALLER, DNP Work Phone: Start: 02-19-2023 Computed tomography of abdomen and pelvis with intravenous contrast Start: 08-27-2022 Plain x-ray of wrist Dr Star Rodriguez Work Phone: Start: 08-27-[address] Estephania daniel Work Phone: Start: 08-27-2022 CT of head without contrast Dr. Estephania Rodriguez Work Phone: Start: 06-17-2022 Mammography Bone Wstr Work Phone: Start: 06-06-2022 INFLUENZA SEASONAL QUADRIVALENT HIGH DOSE AGE 65+ Janine Older AUDITING SPECIALIST.CENTRAL OFFICE INSTALLER Work Phone: Start: 12-13-2021 PROTHROMBIN TIME/PT [facility] Provider Start: 06-04-2021 Adult depression screening assessment Estephania Rodriguez MD Work Phone: Start: 12-06-2018 History of placement of stent for coronary artery disease S/P coronary artery stent placement Dr. Estephania Rodriguez Work Phone: Start: 02-11-2018 Mammography Estephania valiente MD Work Phone: Plan of Treatment Date Care Activity Detail Author Start: 01-09-2026 Annual PCP Team Ball Warper Tender zane Disease Visit Annual PCP Team Chronic Disease Visit [facility] Start: 09-26-2025 End: 09-26-2025 Patient encounter procedure 09/26/2025 3:40 PM EST Office Visit [facility] [place] [address] [facility] [place], [place] [address] Estephania Rodriguez MD [address] [facility] [place], [place] [id number] 4 month follow up [facility] [place] Comment on above: 4 month follow up Start: 08-19-2025 Hepatitis B screening Urine Al bumin:Creatinine Ratio [facility] Start: 08-19-2025 Hepatitis B surface antibody level LDL Cholesterol [facility] Start: 08-09-2025 End: 08-09-2025 Patient encounter procedure 08/09/2025 3:00 PM EST Office Visit [facility] [place] [address] [facility] [place] [address] Estephania Rodriguez MD [address] [facility] [place], [place] [id number] 6 month follow up [facility] [place] Comment on above: 6 month follow up Start: 07-25-2025 Annual PCP Team Ball Warper Tender zane Disease Visit Annual PCP Team Chronic Disease Visit [facility] Start: 07-25-2025 BP Controlled (<130/80) BP Controlle d (<130/80) [facility] Start: 06-24-2025 End: 06-24-2025 Patient encounter procedure 06/24/2025 10:20 AM EDT Office Visit [facility] [place] [address] [facility] [place], [place] [address] Estephania Rodriguez MD [address] [facility] [place], [place] [id number] 4 month follow up [facility] [place] Comment on above: 4 month follow up Start: 06-11-2025 End: 09-10-2025 CBC panel - Blood by Automated count COMPLETE BLOOD COUNT Lab Routine Type 2 diabetes mellitus with other specified complication, with long-term current use of insulin (HCC) Primary hypertension Encounter for long-term current use of medication Expected: 06/11/2025 (Approximate), Expires: 09/10/2025 [facility] Comment on above: Expected: 06/11/2025 (Approximate), Expires: 09/10/2025 Start: 06-11-2025 End: 09-10-2025 Comprehensive metabolic 2000 panel - Serum or Plasma COMPREHENSIVE METABOLIC PANEL Lab Routine Type 2 diabetes mellitus with other specified complication, with long-term current use of insulin (HCC) Primary hypertension Encounter for long-term current use of medication Expected: 06/11/2025 (Approximate), Expires: 09/10/2025 [facility] Work Phone: Comment on above: Expected: 06/11/2025 (Approximate), Expires: 09/10/2025 Start: 06-11-2025 End: 09-10-2025 Hemoglobin A1c in Blood HEMOGLOBIN A1C Lab Routine Type 2 diabetes mellitus with other specified complication, with long-term current use of insulin (HCC) Encounter for long-term current use of medication Expected: 06/11/2025 (Approximate), Expires: 09/10/2025 [facility] Comment on above: Expected: 06/11/2025 (Approximate), Expires: 09/10/2025 Start: 06-11-2025 End: 09-10-2025 Lipid 1996 panel - Serum or Plasma LIPID PANEL, FASTING Lab Routine Type 2 diabetes mellitus with other specified complication, with long-term current use of insulin (HCC) Mixed hyperlipidemia Encounter for long-term current use of medication Expected: 06/11/2025 (Approximate), Expires: 09/10/2025 [facility] Comment on above: Expected: 06/11/2025 (Approximate), Expires: 09/10/2025 Start: 05-08-2025 Influenza vaccination Influenza Vacc ine (#1) [facility] Start: 05-03-2025 End: 05-03-2025 Patient encounter procedure 05/03/2025 10:30 AM EDT [facility] [address] [place], [place] [id number] Jake Edwards, [facility] [address] [place] [phone] DM f/up [facility] Comment on above: DM f/up Start: 04-01-2025 Hemoglobin A1c measurement HbA1C [facility] Start: 03-22-2025 End: 03-22-2025 Patient encounter procedure 03/22/2025 1:00 PM EDT [facility] [address] [place] [address] [facility] [address] [place] [address] DM f/up see encounter for pt assistance forms. pt needs to complete her part if still needing them [facility] Comment on above: DM f/up see encounte r for pt assistance forms. pt needs to complete her part if still needing them Start: 03-20-2025 End: 03-20-2025 Patient encounter procedure 03/20/2025 2:30 PM EDT Appointment Mammogram [address] [place] [address] east cancer screening by mammogram [Z12.31] Mammogram Comment on above: east cancer screenin g by mammogram [Z12.31] Start: 01-23-2025 End: 01-23-2025 Patient encounter procedure 01/23/2025 1:30 PM EDT [facility] [address] [place] [address] [facility] [address] [place] [address] DM f/up see encounter for pt assistance forms. pt needs to complete her part if still needing them [facility] Comment on above: DM f/up see encounte r for pt assistance forms. pt needs to complete her part if still needing them Start: 01-22-2025 Covid-19 Vaccine () Covid-19 Vaccine () [facility] Start: 01-09-2025 End: 01-09-2025 Patient encounter procedure [facility] [place] Comment on above: 4m f/u 4m f/u/ pt due for c olonoscopy Start: 12-23-2024 End: 03-24-2025 Hemoglobin A1c in Blood HEMOGLOBIN A1C Lab Routine Type 2 diabetes mellitus with other specified complication, with long-term current use of insulin (HCC) Expected: 12/23/2024, Expires: 03/24/2025 [facility] Work Phone: Comment on above: Expected: 12/23/2024 , Expires: 03/24/2025 Start: 12-23-2024 Hemoglobin A1c measurement HbA1C [facility] Start: 12-12-2024 End: 12-12-2024 Patient encounter procedure 12/12/2024 1:30 PM EDT [facility] [address] [facility] [place] [place] [address] Jake Edwards, [facility] [address] [place] [address] DM f/up see encounter for pt assistance forms. pt needs to complete her part if still needing them [facility] Comment on above: DM f/up see encounte r for pt assistance forms. pt needs to complete her part if still needing them Start: 12-09-2024 Hemoglobin A1c measurement HbA1C [facility] Start: 11-14-2024 End: 11-14-2024 Patient encounter procedure 11/14/2024 1:30 PM EDT [facility] [address] [facility] [place] [address] Jake Edwards, [facility] [address] [place] [address] DM f/up [facility] Comment on above: DM f/up Start: 11-07-2024 End: 11-07-2024 Patient encounter procedure 11/07/2024 11:00 AM EST [facility] [address] [place] [address] Jake Edwards, [facility] [address] [place] [phone] DM f/up [facility] Comment on above: DM f/up Start: 10-03-2024 End: 10-03-2024 Patient encounter procedure 10/03/2024 11:00 AM EST [facility] [address] [place], [place] [address] Jake Edwards, [facility] [address] [place] [phone] DM f/up [facility] Comment on above: DM f/up Start: 09-09-2024 End: 09-09-2024 Patient encounter procedure 09/09/2024 3:40 PM EST Office Visit [facility] [place] [address] [facility] [place] [phone] Estephania Rodriguez MD [address] [facility] [place], [place] [phone] 1 r f/u [facility] [place] Comment on above: 1 r f/u Start: 09-09-2024 Annual PCP Team Ball Warper Tender zane Disease Visit Annual PCP Team Chronic Disease Visit [facility] Start: 09-09-2024 Covid-19 Vaccine () Covid-19 Vaccine () [facility] Comment on above: Postponed from 05/08 (Declined at this time) Start: 09-07-2024 Advance Directive Discussion Advance Directive Discussion [facility] Start: 08-28-2024 Glaucoma screening Dilated Retinal E xam [facility] Start: 07-25-2024 End: 07-25-2024 Patient encounter procedure 07/25/2024 3:40 PM EST Office Visit [facility] [place] [address] [facility] [place], [place] [phone] Estephania Rodriguez MD [address] [facility] [place], [place] [id number] 6 month follow up [facility] [place] Comment on above: 6 month follow up Start: 07-25-2024 End: 10-24-2024 Comprehensive metabolic 2000 panel - Serum or Plasma COMPREHENSIVE METABOLIC PANEL Lab Routine Type 2 diabetes mellitus with other specified complication, with long-term current use of insulin (HCC) Expected: 07/25/2024 (Approximate), Expires: 10/24/2024 [facility] Comment on above: Expected: 07/25/2024 (Approximate), Expires: 10/24/2024 Start: 07-25-2024 End: 10-24-2024 Lipid 1996 panel - Serum or Plasma LIPID PANEL BASIC Lab Routine Type 2 diabetes mellitus with other specified complication, with long-term current use of insulin (HCC) Mixed hyperlipidemia Expected: 07/25/2024 (Approximate), Expires: 10/24/2024 [facility] Comment on above: Expected: 07/25/2024 (Approximate), Expires: 10/24/2024 Start: 07-25-2024 End: 10-24-2024 Microalbumin/Creatinine [Mass Ratio] in Urine ALBUMIN/CREATININE RATIO, URINE Lab Routine Type 2 diabetes mellitus with other specified complication, with long-term current use of insulin (HCC) Expected: 07/25/2024 (Approximate), Expires: 10/24/2024 [facility] Work Phone: Comment on above: Expected: 07/25/2024 (Approximate), Expires: 10/24/2024 Start: 07-11-2024 End: 07-11-2024 Patient encounter procedure 07/11/2024 1:30 PM [facility] [address] [place] [address] Jake Edwards, [facility] [address] [place] [address] DM f/up [facility] Comment on above: DM f/up Start: 07-07-2024 Hepatitis B screening Urine Al bumin:Creatinine Ratio [facility] Start: 06-13-2024 End: 09-12-2024 Basic metabolic 2000 panel - Serum or Plasma BASIC METABOLIC PANEL Lab Routine Type 2 diabetes mellitus with other specified complication, with long-term current use of insulin (HCC) Expected: 06/13/2024, Expires: 09/12/2024 [facility] Work Phone: Comment on above: Expected: 06/13/2024 , Expires: 09/12/2024 Start: 06-13-2024 End: 06-13-2024 Patient encounter procedure 06/13/2024 1:00 PM EDT [facility] [address] [facility] [place] [address] Jake Edwards, [facility] [address] [place] [phone] DM f/up [facility] Comment on above: DM f/up Start: 06-10-2024 Hepatitis B surface antibody level LDL Cholesterol [facility] Start: 05-30-2024 End: 05-30-2024 Patient encounter procedure 05/30/2024 1:00 PM EDT [facility] [address] [place] [address] GraceJake shaikh, [facility] [address] [place] [address] DM f/up Pharm Med [facility] Comment on above: DM f/up Start: 05-18-2024 Annual PCP Team Ball Warper Tender azne Disease Visit Annual PCP Team Chronic Disease Visit [facility] Start: 05-08-2024 Covid-19 Vaccine ( season) Covid-19 Vaccine ( season) [facility] Start: 05-08-2024 Covid-19 Vaccine ( season) Covid-19 Vaccine ( season) [facility] Start: 05-08-2024 Influenza vaccination Influenza Vacc ine (#1) [facility] Start: 03-23-2024 End: 06-22-2024 Hemoglobin A1c in Blood HEMOGLOBIN A1C Lab Routine Type 2 diabetes mellitus with other specified complication, with long-term current use of insulin (HCC) Expected: 03/23/2024, Expires: 06/22/2024 [facility] Work Phone: Comment on above: Expected: 03/23/2024 , Expires: 06/22/2024 Start: 03-23-2024 End: 03-23-2024 Patient encounter procedure 03/23/2024 10:00 AM EDT [facility] [address] [facility] [place] [place] [address] [place], [place] [address] [place] [phone] DM f/up [facility] Comment on above: DM f/up Start: 03-15-2024 End: 03-15-2024 Patient encounter procedure 03/15/2024 5:20 PM EDT Office Visit [facility] [place] [address] [place] [address] Estephania Rodriguez MD [address] [place], [place] [address] Follow up [facility] [place] Comment on above: Follow up Start: 02-17-2024 BP CONTROLLED (<130/80) BP CONTROLLE D (<130/80) [facility] Start: 01-25-2024 End: 01-25-2024 Patient encounter procedure 01/25/2024 1:30 PM EDT [facility] [address] [place] [address] [place] [address] [place] [phone] DM f/up [facility] Comment on above: DM f/up Start: 12-09-2023 Hemoglobin A1c measurement HbA1C [facility] Start: 10-06-2023 ANNUAL PCP TEAM FIELD INSTALLER ZANE DISEASE VISIT ANNUAL PCP TEAM CHRONIC DISEASE VISIT [facility] Start: 10-06-2023 BP CONTROLLED (<130/80) BP CONTROLLE D (<130/80) [facility] Start: 09-10-2023 Hemoglobin A1c/Hemoglobin.total in Blood HbA1C [facility] Start: 07-17-2023 Hepatitis C antibody , confirmatory test DILATED RETINAL EXAM [facility] Start: 06-30-2023 Hepatitis B screening URINE AL BUMIN:CREATININE RATIO [facility] Start: 06-30-2023 Hepatitis B surface antibody level LDL CHOLESTEROL [facility] Start: 06-17-2023 Mammography [facility] Start: 06-17-2023 Screening for malign ant neoplasm of breast Mammogram Screening [facility] Start: 06-06-2023 3 comp foot exam completed DIABETIC FOOT EXAM [facility] Start: 06-06-2023 ANNUAL PCP TEAM FIELD INSTALLER ZANE DISEASE VISIT ANNUAL PCP TEAM CHRONIC DISEASE VISIT [facility] Start: 06-06-2023 BP CONTROLLED (<130/80) BP CONTROLLE D (<130/80) [facility] Start: 06-06-2023 COVID-19 VACCINE (3 - Booster for Moderna series) COVID-19 VACCINE (3 - Booster for Moderna series) [facility] Comment on above: Postponed from 10/23 (Declined at this time) Start: 06-06-2023 Diabetic foot examination Diabetic Foot Exam [facility] Start: 06-06-2023 SHINGRIX VACCINE (1 of 2) SHINGRIX VACCINE (1 of 2) [facility] Comment on above: Postponed from 03/04 (Declined at this time) Start: 05-18-2023 End: 07-18-2023 ALBUMIN/CREAT RATIO RND UR ALBUMIN/CREAT RATIO RND UR Lab Routine Type 2 diabetes mellitus with hyperglycemia, without long-term current use of insulin (HCC) HTN (hypertension), benign Encounter for long-term current use of medication Expected: 05/18/2023, Expires: 07/18/2023 [facility] Work Phone: Comment on above: Expected: 05/18/2023 , Expires: 07/18/2023 Start: 05-18-2023 End: 07-18-2023 CBC panel - Blood by Automated count CBC Lab Routine HTN (hypertension), benign Encounter for long-term current use of medication Expected: 05/18/2023, Expires: 07/18/2023 [facility] Work Phone: Comment on above: Expected: 05/18/2023 , Expires: 07/18/2023 Start: 05-18-2023 End: 07-18-2023 Comprehensive metabolic 2000 panel - Serum or Plasma COMP METABOLIC PANEL Lab Routine Type 2 diabetes mellitus with hyperglycemia, without long-term current use of insulin (HCC) HTN (hypertension), benign Encounter for long-term current use of medication Expected: 05/18/2023, Expires: 07/18/2023 [facility] Work Phone: Comment on above: Expected: 05/18/2023 , Expires: 07/18/2023 Start: 05-18-2023 End: 07-18-2023 Hemoglobin A1c in Blood HGB A1C Lab Routine Type 2 diabetes mellitus with hyperglycemia, without long-term current use of insulin (HCC) HTN (hypertension), benign Encounter for long-term current use of medication Expected: 05/18/2023, Expires: 07/18/2023 [facility] Work Phone: Comment on above: Expected: 05/18/2023 , Expires: 07/18/2023 Start: 05-18-2023 End: 07-18-2023 Lipid 1996 panel - Serum or Plasma LIPID PANEL BASIC Lab Routine Mixed hyperlipidemia HTN (hypertension), benign Encounter for long-term current use of medication Expected: 05/18/2023, Expires: 07/18/2023 [facility] Work Phone: Comment on above: Expected: 05/18/2023 , Expires: 07/18/2023 Start: 05-08-2023 Covid-19 Vaccine () Covid-19 Vaccine () [facility] Start: 05-08-2023 Influenza vaccination INFLUENZA (#1) [facility] Start: 02-19-2023 [facility] Start: 02-10-2023 End: 04-12-2023 Bacteria identified in Urine by Culture URINE CULTURE Microbiology Routine Recurrent UTI Expected: 02/10/2023, Expires: 04/12/2023 [facility] Work Phone: Comment on above: Expected: 02/10/2023 , Expires: 04/12/2023 Start: 01-09-2023 End: 03-11-2023 Bacteria identified in Urine by Culture URINE CULTURE Microbiology Routine Recurrent UTI Expected: 01/09/2023, Expires: 03/11/2023 [facility] Work Phone: Comment on above: Expected: 01/09/2023 , Expires: 03/11/2023 Start: 01-04-2023 Hemoglobin A1c/Hemoglobin.total in Blood HBA1C [facility] Start: 01-03-2023 Hepatitis C antibody , confirmatory test DILATED RETINAL EXAM [facility] Start: 11-18-2022 End: 01-18-2023 Bacteria identified in Urine by Culture URINE CULTURE Microbiology Routine UTI symptoms Expected: 11/18/2022, Expires: 01/18/2023 [facility] Work Phone: Comment on above: Expected: 11/18/2022 , Expires: 01/18/2023 Start: 11-18-2022 End: 01-18-2023 Urinalysis complete panel - Urine URINALYSIS, WITH MICROSCOPIC Lab Routine UTI symptoms Expected: 11/18/2022, Expires: 01/18/2023 [facility] Work Phone: Comment on above: Expected: 11/18/2022 , Expires: 01/18/2023 Start: 11-11-2022 End: 01-11-2023 Bacteria identified in Urine by Culture URINE CULTURE Microbiology Routine UTI symptoms Expected: 11/11/2022, Expires: 01/11/2023 [facility] Work Phone: Comment on above: Expected: 11/11/2022 , Expires: 01/11/2023 Start: 11-11-2022 End: 01-11-2023 Urinalysis complete panel - Urine URINALYSIS, WITH MICROSCOPIC Lab Routine UTI symptoms Expected: 11/11/2022, Expires: 01/11/2023 [facility] Work Phone: Comment on above: Expected: 11/11/2022 , Expires: 01/11/2023 Start: 11-01-2022 COLORECTAL CANCER SCREENING COLORECTAL CANCER SCREENING [facility] Start: 11-01-2022 FECAL OCCULT BLOOD FECAL OCCULT BLOO D [facility] Start: 11-01-2022 Screening for malign ant neoplasm of colon [facility] Start: 10-23-2022 COVID-19 VACCINE (4 - Moderna series) COVID-19 VACCINE (4 - Moderna series) [facility] Start: 10-15-2022 ANNUAL PCP TEAM FIELD INSTALLER ZANE DISEASE VISIT ANNUAL PCP TEAM CHRONIC DISEASE VISIT [facility] Start: 10-15-2022 BP CONTROLLED (<130/80) BP CONTROLLE D (<130/80) [facility] Start: 10-06-2022 End: 12-06-2022 Basic metabolic 1999 panel - Serum or Plasma [facility] Work Phone: Comment on above: Expected: 10/06/2022 , Expires: 12/06/2022 Start: 10-06-2022 End: 12-06-2022 Hemoglobin A1c in Blood [facility] Work Phone: Comment on above: Expected: 10/06/2022 , Expires: 12/06/2022 Start: 09-30-2022 Hemoglobin A1c/Hemoglobin.total in Blood HBA1C [facility] Start: 09-07-2022 ADVANCE DIRECTIVE DISCUSSION ADVANCE DIRECTIVE DISCUSSION [facility] Start: 09-07-2022 DEPRESSION ASSESSMENT DEPRESSION ASS ESSMENT [facility] Start: 09-06-2022 Urine microalbumin profile [facility] Start: 07-26-2022 PNEUMOCOCCAL: 65+ (2 - PCV) PNEUMOCOCCAL: 65+ (2 - PCV) [facility] Start: 07-11-2022 End: 09-10-2022 Basic metabolic 1999 panel - Serum or Plasma BASIC METABOLIC PNL Lab Routine Hyperkalemia Expected: 07/11/2022 (Approximate), Expires: 09/10/2022 [facility] Work Phone: Comment on above: Expected: 07/11/2022 (Approximate), Expires: 09/10/2022 Start: 06-06-2022 End: 08-06-2022 ALBUMIN/CREAT RATIO RND UR ALBUMIN/CREAT RATIO RND UR Lab Routine Type 2 diabetes mellitus with hyperglycemia, without long-term current use of insulin (HCC) Expected: 06/06/2022, Expires: 08/06/2022 [facility] Work Phone: Comment on above: Expected: 06/06/2022 , Expires: 08/06/2022 Start: 06-06-2022 End: 08-06-2022 CBC W Auto Differential panel - Blood CBC + DIFF Lab Routine HTN (hypertension), benign Type 2 diabetes mellitus with hyperglycemia, without long-term current use of insulin (HCC) Expected: 06/06/2022, Expires: 08/06/2022 [facility] Work Phone: Comment on above: Expected: 06/06/2022 , Expires: 08/06/2022 Start: 06-06-2022 End: 08-06-2022 Comprehensive metabolic 2000 panel - Serum or Plasma COMP METABOLIC PANEL Lab Routine HTN (hypertension), benign Mixed hyperlipidemia Type 2 diabetes mellitus with hyperglycemia, without long-term current use of insulin (HCC) Expected: 06/06/2022, Expires: 08/06/2022 [facility] Work Phone: Comment on above: Expected: 06/06/2022 , Expires: 08/06/2022 Start: 06-06-2022 End: 08-06-2022 Hemoglobin A1c in Blood HGB A1C Lab Routine Type 2 diabetes mellitus with hyperglycemia, without long-term current use of insulin (HCC) Expected: 06/06/2022, Expires: 08/06/2022 [facility] Work Phone: Comment on above: Expected: 06/06/2022 , Expires: 08/06/2022 Start: 06-06-2022 End: 08-06-2022 Lipid 1996 panel - Serum or Plasma LIPID PANEL BASIC Lab Routine Mixed hyperlipidemia Expected: 06/06/2022, Expires: 08/06/2022 [facility] Work Phone: Comment on above: Expected: 06/06/2022 , Expires: 08/06/2022 Start: 06-04-2022 Adult depression screening assessment DEPRESSION SCREENING [facility] Start: 05-29-2022 Hepatitis B surface antibody level LDL CHOLESTEROL [facility] Start: 05-08-2022 Influenza vaccination INFLUENZA (#1) [facility] Start: 04-23-2022 Hemoglobin A1c/Hemoglobin.total in Blood HBA1C [facility] Start: 01-26-2022 COVID-19 VACCINE (3 - Booster for Moderna series) COVID-19 VACCINE (3 - Booster for Moderna series) [facility] Start: 12-19-2021 Hemoglobin A1c/Hemoglobin.total in Blood HBA1C [facility] Start: 11-12-2021 Hepatitis B screening URINE AL BUMIN:CREATININE RATIO [facility] Start: 09-07-2021 ADVANCE DIRECTIVE DISCUSSION ADVANCE DIRECTIVE DISCUSSION [facility] Start: 09-07-2021 DEPRESSION ASSESSMENT DEPRESSION ASS ESSMENT [facility] Start: 2020 BONE DENSITY BONE DENSITY [facility] Start: 02-11-2019 Mammography MAMMOGRAM [facility] Start: 11-03-2015 Medicare Annual Wellness Visit Medicare Annual Wellness Visit [facility] Start: 2015 Hepatitis B Vaccine (1 of 3 - Risk 3-dose series) Hepatitis B Vaccine (1 of 3 - Risk 3-dose series) [facility] Start: 2015 RSV Vaccine (1 - 1-d ose 60+ series) RSV Vaccine (1 - 1-dose 60+ series) [facility] Start: 2015 RSV Vaccine (1 - Ris k 60-74 years 1-dose series) RSV Vaccine (1 - Risk 60-74 years 1-dose series) [facility] Start: 02-01-2015 3 comp foot exam completed DIABETIC FOOT EXAM [facility] Start: 07-20-2008 Hepatitis C antibody , confirmatory test DILATED RETINAL EXAM [facility] Start: 2005 SHINGRIX VACCINE (1 of 2) SHINGRIX VACCINE (1 of 2) [facility] Start: 2000 COLOGUARD (FIT-DNA) COLOGUARD (FIT-D NA) [facility] Start: 2000 Colonoscopy COLONOSCOPY [facility] Start: [address] COLONOGRAPHY [facility] Start: 2000 Screening for malign ant neoplasm of colon [facility] Start: 2000 SIGMOIDOSCOPY SIGMOIDOSCOPY [facility] Start: 1973 BP CONTROLLED (<130/80) BP CONTROLLE D (<130/80) [facility] Bacteria identified in Urine by Culture Urine Culture [facility] Bacteria identified in Urine by Culture URINE CULTURE Microbiology Routine Recurrent UTI 04/20/2023 12:31 PM EDT [facility] Work Phone: [facility] Procedures Routine Bladder wall thickening Ordered: 04/20/2023 [facility] Work Phone: Comment on above: Ordered: 04/20/2023 End: 07-29-2025 DBT Breast - bilateral screening ESTEFANÍA SCREENING W PANFILO Radiology Routine Encounter for screening mammogram for breast cancer 1 Occurrences starting 06/29/2024 until 07/29/2025 [facility] Work Phone: Comment on above: 1 Occurrences starti ng 06/29/2024 until 07/29/2025 End: 02-08-2026 DBT Breast - bilateral screening ESTEFANÍA SCREENING W PANFILO Radiology Routine Breast cancer screening by mammogram 1 Occurrences starting 01/09/2025 until 02/08/2026 [facility] Comment on above: 1 Occurrences starti ng 01/09/2025 until 02/08/2026 End: 07-06-2023 Dxa bone density study 1/> sites axial skel DXA-AXIAL SKELETON Radiology Routine Screening for osteoporosis Asymptomatic menopause 1 Occurrences starting 06/06/2022 until 07/06/2023 [facility] Work Phone: Comment on above: 1 Occurrences starti ng 06/06/2022 until 07/06/2023 End: 06-17-2022 Dxa bone density study 1/> sites axial skel [facility] Work Phone: Comment on above: 1 Occurrences starti ng 06/17/2022 until 06/17/2022 End: 11-23-2025 Liver stiffness by US.transient elastography US ELASTOGRAPHY LIVER Radiology Routine Metabolic dysfunction-associated steatotic liver disease (MASLD) 1 Occurrences starting 10/24/2024 until 11/23/2025 [facility] Comment on above: 1 Occurrences starti ng 10/24/2024 until 11/23/2025 End: 08-20-2024 ESTEFANÍA SCREENING ESTEFANÍA SCREENING Radiology Routine Encounter for screening mammogram for breast cancer 1 Occurrences starting 07/22/2023 until 08/20/2024 [facility] Work Phone: Comment on above: 1 Occurrences starti ng 07/22/2023 until 08/20/2024 Patient Education [facility] Work Phone: Patient referral [facility] Work Phone: End: 03-31-2027 PT panel - Platelet poor plasma by Coagulation assay PROTHROMBIN TIME/PT Lab Routine 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 99 Occurrences starting 03/31/2022 until 03/31/2027 [facility] Work Phone: Comment on above: 99 Occurrences start ing 03/31/2022 until 03/31/2027 End: 02-08-2025 PT panel - Platelet poor plasma by Coagulation assay PROTHROMBIN TIME Lab Routine 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 99 Occurrences starting 02/09/2024 until 02/08/2025 [facility] Work Phone: Comment on above: 99 Occurrences start ing 02/09/2024 until 02/08/2025 End: 04-04-2023 Screening mammography bi 2-view breast inc cad ESTEFANÍA SCREENING Radiology Routine Encounter for screening mammogram for breast cancer 1 Occurrences starting 03/05/2022 until 04/04/2023 [facility] Work Phone: Comment on above: 1 Occurrences starti ng 03/05/2022 until 04/04/2023 End: 11-23-2025 US Abdomen RUQ US ABD RIGHT UPPER QUADRANT Radiology Routine Metabolic dysfunction-associated steatotic liver disease (MASLD) 1 Occurrences starting 10/24/2024 until 11/23/2025 [facility] Work Phone: Comment on above: 1 Occurrences starti ng 10/24/2024 until 11/23/2025 [facility] Immunizations Immunization Date Immunization Notes Care Provider Nitza cobb 07-25-2024 COVID-19 vaccine, ag e 12+ yr ([employer] [facility]) Estephania Rodriguez MD Work Phone: [facility] 07-25-2024 influenza, high dose seasonal, preservative-free Estephania Rodriguez MD Work Phone: [facility] 07-25-2024 influenza virus vacc ine, unspecified formulation Jake Edwards [facility] Work Phone: [facility] 05-18-2023 influenza (HD-IIV4) vaccine, age 65+ yr, high dose, quadrivalent, PF (FLUZONE HIGH-DOSE) Estephania Rodriguez MD Work Phone: [facility] 05-18-2023 influenza virus vacc ine, unspecified formulation Rene Edwardaston [facility] 06-06-2022 influenza, high-dose , quadrivalent vaccine (FLUZONE HIGH DOSE QUADRIVALENT) Janine Dumont APRN.CENTRAL OFFICE INSTALLER Work Phone: [facility] 07-26-2021 pneumococcal conjuga te vaccine, 13 valent Estephania Rodriguez MD Work Phone: [facility] Work Phone: 07-26-2021 pneumococcal polysaccharide vaccine, 23 valent Estephania Rodriguez MD Work Phone: [facility] 07-26-[address] Marycruz Rodriguez Work Phone: [facility] Work Phone: 07-26-2021 pneumococcal vaccine , unspecified formulation Dr. Estephania Rodriguez Work Phone: [facility] 07-23-2021 Covid (Moderna) Dr. Estephania fonseca Work Phone: [facility] 06-04-2021 influenza, high-dose , quadrivalent vaccine (FLUZONE HIGH DOSE QUADRIVALENT) Estephania Rodriguez MD Work Phone: [facility] 05-27-2021 influenza, seasonal, injectable Dr. Estephania Rodriguez Work Phone: [facility] 05-28-2020 influenza, high-dose , quadrivalent vaccine (FLUZONE HIGH DOSE QUADRIVALENT) Estephania Rodriguez MD Work Phone: [facility] 05-28-2020 pneumococcal polysaccharide vaccine, 23 valent Estephania Rodriguez MD Work Phone: [facility] 06-23-2019 influenza, injectabl e, quadrivalent, preservative free Estephania Rodriguez MD Work Phone: [facility] 07-08-[address] Estephania Rodriguez Work Phone: [facility] 06-14-2018 influenza, injectabl e, quadrivalent, contains preservative Estephania Rodriguez MD Work Phone: [facility] 08-04-2017 influenza, injectabl e, quadrivalent, contains preservative Estephania Rodriguez MD Work Phone: [facility] 07-04-2016 influenza, injectabl e, quadrivalent, contains preservative Estephania Rodriguez MD Work Phone: [facility] 06-18-2015 influenza, injectabl e, quadrivalent, contains preservative Estephania Rodriguez MD Work Phone: [facility] 06-10-2013 influenza virus vacc ine, unspecified formulation Estephania Rodriguez MD Work Phone: [facility] Work Phone: 09-06-2012 influenza virus vacc ine, unspecified formulation Estephania Rodriguez MD Work Phone: [facility] 09-06-2012 tetanus toxoid, redu gretel diphtheria toxoid, and acellular pertussis vaccine, adsorbed Estephania Rodriguez MD Work Phone: [facility] 06-24-2010 influenza virus vacc ine, unspecified formulation Estephania Rodriguez MD Work Phone: [facility] 06-07-2006 influenza virus vacc ine, unspecified formulation Estephania Rodriguez MD Work Phone: [facility] Work Phone: 06-07-2003 influenza virus vacc gypsy, unspecified formulation Estephania Rodriguez MD Work Phone: [facility] Work Phone: 10-01-2003 pneumococcal polysaccharide vaccine, 23 valent Estephania Rodriguez MD Work Phone: [facility] Work Phone: 03-07-2002 tetanus and diphther ia toxoids, adsorbed, preservative free, for adult use (2 Lf of tetanus toxoid and 2 Lf of diphtheria toxoid) Estephania Rodriguez MD Work Phone: [facility] Work Phone: Payers Date Payer Category Payer Self-pay [id number] 2015 Medicare MEDICARE MEDICAR E A AND B [id number] 2015-Present [phone] [place] [address] Medicare [id number] 2015 Medicare [id number] 2015 Medicare [id number] Private Health Insurance [id number] Unknown [id number] Unknown [id number] Social History Date Type Detail Facility Start: 04-05-2012 End: 11-10-2024 Tobacco smoking status NHIS Ex-smoker [facility] Work Phone: Start: 09-07-1976 End: 09-07-2006 History of tobacco use Current smoker [facility] Work Phone: Start: 09-07-1976 End: 09-07-2006 History of tobacco use Cigarette Smoker [facility] Work Phone: Start: 08-28-2021 End: 02-16-2023 Alcohol intake Current non-drinker of alcohol (finding) [facility] Start: 1955 Sex Assigned At Not on file [facility] Start: 11-19-2021 End: 06-17-2022 Exposure to SARS-CoV-2 (event) Not sure [facility] Start: 11-15-2021 End: 02-19-2023 Tobacco smoking status NHIS Unknown if ever smoked [facility] Start: 12-30-2018 None [facility] Start: 12-30-2018 With Family [facility] Start: 1955 Sex Assigned At Female W [facility] Start: 02-03-2022 End: 06-06-2022 Exposure to SARS-CoV-2 (event) Unable to assess [facility] Work Phone: Start: 04-05-2012 End: 02-06-2023 Cigarettes smoked current (pack per day) - Reported 0.5 [facility] Work Phone: Start: 04-05-2012 End: 11-10-2024 Tobacco use and exposure Smokeless tobacco non-user [facility] Work Phone: Start: 02-06-2023 End: 02-16-2023 Tobacco use panel [facility] Work Phone: Start: 08-08-2012 Adult Depression Screening Assessment 0 [facility] Work Phone: Start: 04-20-2023 End: 11-10-2024 Alcohol intake Ex-drinker (finding) [facility] Medical Equipment Procedure Code Equipment Code Equipment Origin al Text Equipment Identifier Dates [id number], [id number], [id number] Start: 06-14-2018 Comment on above: Check 4 time daily a s directed. DX E11.65, Insulin: Yes Use one needle per d ose. One per day. Test blood sugar(s) 4 times daily as directed. Dx: diabetes E11.65. Insulin: Yes mikel lancets [id number] Start: 10-15-2006 Comment on above: [facility] Functional Status Date Assessment Result Facility 02-12-2015 Are you deaf, or do you have serious difficulty hearing No 02/12/2015 3:24 PM EDT Rae Watson LPN No [facility] 02-12-2015 Are you blind, or do you have serious difficulty seeing, even when wearing glasses No 02/12/2015 3:24 PM EDT Rae Watson LPN No [facility] 02-12-2015 Do you have serious difficulty walking or climbing stairs No 02/12/2015 3:24 PM EDT Rae Watson LPN No [facility] 02-12-2015 Do you have difficul ty dressing or bathing No 02/12/2015 3:24 PM EDT Rae Watson LPN No [facility] 02-12-2015 Because of a physica l, mental, or emotional condition, do you have difficulty doing errands alone such as visiting a physician's office or shopping No 02/12/2015 3:24 PM EDT Rae Watson LPN No [facility] Mental Status Date Assessment Result Facility 02-12-2015 Because of a physica l, mental, or emotional condition, do you have serious difficulty concentrating, remembering, or making decisions No 02/12/2015 3:24 PM EDT Rae Watson LPN No [facility] Clinical Notes 12-06-2018 to 06-07-2025 Telephone Encounter - Sulma Henriquez LPN - 05/18/2025 3:04 PM EDTTelephone Encounter - Sulma Henriquez LPN - 05/18/2025 3:04 PM Jake Osman [facility] - 01/23/2025 1:30 PM EDT Note Date & Type Note Facility 06-07-2025 Note HNO ID: [id number] Author: MONSE MARR MA Service: ? Author Type: Food Safety Scientist Type: Progress Notes Filed: 06/08/2025 07:04 Note Text: POPULATION HEALTH NAVIGATION OUTREACH Action/FYI Contacted patient to schedule HCC care gaps and health maintenance. 1st attempt: Left message with my direct number Added HCC gap closure to upcoming appointment notes. Topic Due (Y or N) Comments Annual Wellness Exam Yes PCP Follow up No Colorectal Cancer Screening Yes A1C Yes Mammogram Yes BP Control No Dilated Retinal Exam Yes KED No HCC Yes Flu Vaccine Yes Updated appointment notes Yes Reason for Outreach Care Gap/HCC or Scheduling Wellness Visits Care Gaps due: Medicare Annual Wellness Visit Breast Cancer Screening Colorectal Cancer Screening Diabetic Eye Exam HBA1C Flu Vaccine Patient Contacted: Unable or unnecessary to reach patient: Left message HCC related Updated appointment notes Navigation Signature: Monse Marr MA June 07, 2025 4:03 PM [facility] 06-07-2025 Note Patient Outreach (NE TNAV) WENDY FORTE ([id number]) 1955 F Date Time Provider Department 06/07/25 MONSE MARR NETEROSV During your visit today, we recorded the following information about you: Monse Marr MA 06/08/2025 7:04 AM Addendum POPULATION HEALTH NAVIGATION OUTREACH Action/FYI Contacted patient to schedule HCC care gaps and health maintenance. 1st attempt: Left message with my direct number Added HCC gap closure to upcoming appointment notes. Topic Due (Y or N) Comments Annual Wellness Exam Yes PCP Follow up No Colorectal Cancer Screening Yes A1C Yes Mammogram Yes BP Control No Dilated Retinal Exam Yes KED No HCC Yes Flu Vaccine Yes Updated appointment notes Yes Reason for Outreach Care Gap/HCC or Scheduling Wellness Visits Care Gaps due: Medicare Annual Wellness Visit Breast Cancer Screening Colorectal Cancer Screening Diabetic Eye Exam HBA1C Flu Vaccine Patient Contacted: Unable or unnecessary to reach patient: Left message HCC related Updated appointment notes Navigation Signature: Monse Marr MA June 07, 2025 4:03 PM Allergies As of Date: 06/07/2025 Noted Allergy Reaction SULFA (SULFONAMIDE ANTIBIOTICS) 08/28/2006 2 - Rash Comments: BLISTERS Date Reviewed: 01/09/2025 Reviewed by: Claire Smiley LPN - Fully Assessed Reason for Visit: Population Health Navigation Outreach [3910] Cmt: Luther/Workbench/ACO Prescriptions as of 06/08/2025 - semaglutide (OZEMPIC) 0.25 mg or 0.5 mg (2 mg/3 mL) pen Inject 0.25 mg subcutaneously one time a week. Do not send to the pharmacy - receives through patient assistance program. Managed by [facility] pharmacy team - any order changes, route to?[facility] - insulin lispro (HUMALOG KWIKPEN INSULIN) 100 unit/mL Take 6 units before meals if pre-meal BG >150 mg/dL. Patient assistance medication - insulin glargine 100 unit/mL (3 mL) Inject 40 Units subcutaneously daily at bedtime. Patient assistance medication - clopidogrel (PLAVIX) 75 mg tablet Take 1 tablet by mouth once daily. - FLUoxetine (PROZAC) 40 mg capsule Take 1 capsule by mouth once daily. - IFEREX 150 150 mg iron capsule Take 1 capsule by mouth once daily. - metFORMIN ER (GLUCOPHAGE XR) 500 mg 24 hr tablet Take 2 tablets by mouth two times a day with meals. - metoprolol tartrate, short acting, (LOPRESSOR) 50 mg tablet Take 1 tablet by mouth two times a day. - rosuvastatin (CRESTOR) 5 mg tablet Take 1 tablet by mouth daily at bedtime. - warfarin (COUMADIN) 2.5 mg tablet Start with 2.5 mg daily except 1.25mg Thurs - L. acidophilus/Bifid. animalis (DAILY PROBIOTIC ORAL) Take 1 capsule by mouth once daily. - estradiol (ESTRACE) 0.01 % (0.1 mg/gram) vaginal cream Use 1 g vaginally two times a week. Apply before bed. Apply a pea-sized amount of cream to the vagina/vulva. - Biotin 10,000 mcg cap Take 10,000 mcg by mouth once daily. With Keratin 100 MG - blood sugar diagnostic (FREESTYLE TEST) test strip Check 4 time daily as directed. DX E11.65, Insulin: Yes - Lancets lancets Test blood sugar(s) 4 times daily as directed. Dx: diabetes E11.65. Insulin: Yes - insulin needles, DISPOSABLE, (PEN NEEDLE) 31 gauge x 5/16 ndle Use one needle per dose. One per day. - COMPOUNDED PRESCRIPTION Diabetic shoes with insoles. DX E11.65, E11,49 - COMPOUNDED PRESCRIPTION Hinged knee brace for left knee--Nestor Mehta OA Reaction Web Knee brace. Dx Knee pain and decreased mobility secondary to degenerative arthritis 715.96 - COMPOUNDED PRESCRIPTION ascensia lancets Meds Comments as of 02/21/2013: Problem List As Of Date 06/07/2025 Noted Resolved HTN (hypertension), benign [I10] Hyperlipidemia [E78.5] Type II diabetes mellitus, uncontrolled (HCC) [* URINARY FREQUENCY [R35.0] PANIC DISORDER WITHOUT AGORAPHOBIA [F41.0] 07/21/2008 GERD (gastroesophageal reflux disease) [K21.9] 04/05/2012 Heart palpitations [R00.2] 04/05/2012 Obesity, morbid, BMI 40.0-49.9 (HCC) [E66.01] Type 2 diabetes mellitus with hyperglycemia, wi*10/30/2014 PAF (paroxysmal atrial fibrillation) (HCC) [I48*11/01/2021 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 If PAP Team does not receive faxed response in time frame noted above we will reach out to collision worker via phone call to check on status. Janiya Osborn CPhT Printed patient section but did not see section for provider to sign. Messaged Janiya to see if needing scanned in still and she fixed. Forms put on provider desk to sign and called patient advising forms need done. Forms mailed to patient house and asked her to drop off when completed Leticia Bowens MA PLEASE DO NOT FAX FORMS BACK TO I Do Now I Don't. Once signed by patient & provider please fax forms back to Patient Assistance Team ATTN : Michaela/Janiya at [phone]. Patient & Provider's section of patient assistance application through [employer] for medications (Ozempic 0.25/0.5mg) have been scanned into patient's chart. Patient Assistance Team is asking that forms be printed from scanned documents in EPIC at providers office for both patient & provider to review and sign. Once signed by both parties please fax back to PAP Team at [phone]. Thank You! Janiya Osborn CPhT documented in this encounter [facility] 05-16-2025 Telephone encounter Note Verify was printed for me to sign then document when has been signed and faxed [facility] 05-16-2025 Telephone encounter Note Patient Assistance application faxed on 05/16/2025 to [employer] regarding medication(s) Ozempic 0.25/0.5mg Processing of patient assistance application will take 7-10 business. If PAP Team does not receive faxed response in time frame noted above we will reach out to collision worker via phone call to check on status. Janiya Osborn CPhT [facility] [facility] 05-05-2025 Telephone encounter Note [facility] Anticoagulation Clinic Anticoagulation Episode Summary Anticoagulation Care Providers Provider Role Specialty Phone number Estephania Rodriguez MD Referring Internal Medicine [phone] Wendy Forte is a 70 year old year old female patient being evaluated today for a Telemanagement visit. Patient is currently on the following anticoagulant(s) Warfarin. Labs Lab Results Component Value Date INR 1.9 (H) 05/05/2025 INR 1.9 (H) 04/08/2025 INR 2.2 (H) 03/03/2025 Lab Results Component Value Date HB 12.9 09/09/2023 HB 11.7 06/10/2023 HB 12.5 06/30/2022 Lab Results Component Value Date HCT 40.6 09/09/2023 HCT 37.7 06/10/2023 HCT 38.8 06/30/2022 Lab Results Component Value Date PLT 270 09/09/2023 PLT 257 06/10/2023 PLT 274 06/30/2022 Lab Results Component Value Date CREAT 0.77 09/24/2024 CREAT 0.72 08/19/2024 CREAT 0.74 02/08/2024 No components found for: TBILI3 Lab Results Component Value Date ALT 21 09/24/2024 ALT 27 08/19/2024 ALT 32 09/09/2023 Lab Results Component Value Date AST 35 09/24/2024 AST 31 08/19/2024 AST 26 09/09/2023 CrCl cannot be calculated (Patient's most recent lab result is older than the maximum 180 days allowed.). 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 [facility] 05-05-2025 Miscellaneous Notes [facility] Anticoagulation Clinic Anticoagulation Episode Summary Anticoagulation Care Providers Provider Role Specialty Phone number Estephania Rodriguez MD Referring Internal Medicine [phone] Wendy Forte is a 70 year old year old female patient being evaluated today for a Telemanagement visit. Patient is currently on the following anticoagulant(s) Warfarin. Labs Lab Results Component Value Date INR 1.9 (H) 05/05/2025 INR 1.9 (H) 04/08/2025 INR 2.2 (H) 03/03/2025 Lab Results Component Value Date HB 12.9 09/09/2023 HB 11.7 06/10/2023 HB 12.5 06/30/2022 Lab Results Component Value Date HCT 40.6 09/09/2023 HCT 37.7 06/10/2023 HCT 38.8 06/30/2022 Lab Results Component Value Date PLT 270 09/09/2023 PLT 257 06/10/2023 PLT 274 06/30/2022 Lab Results Component Value Date CREAT 0.77 09/24/2024 CREAT 0.72 08/19/2024 CREAT 0.74 02/08/2024 No components found for: TBILI3 Lab Results Component Value Date ALT 21 09/24/2024 ALT 27 08/19/2024 ALT 32 09/09/2023 Lab Results Component Value Date AST 35 09/24/2024 AST 31 08/19/2024 AST 26 09/09/2023 CrCl cannot be calculated (Patient's most recent lab result is older than the maximum 180 days allowed.). 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 fibrillation) (hcc) half-way current use of anticoagulant Anticoagulation Episode Summary Current INR goal: 2.0-3.0 Assessment: INR result of 1.9 is SUBtherapeutic due to: unknown cause - did not speak to patient Plan: Current Warfarin Dosing As of 05/05/2025 Full warfarin instructions: 2.5 mg every day Left voice message Advised patient to increase total weekly regimen as noted above Next lab INR check scheduled on 06/02/2025 Jigna Arana RPh Clinical Pharmacist, Pharmacy Anticoagulation Clinic Pharmacy Anticoagulation Clinic Pager: [phone]. documented in this encounter [facility] 05-05-2025 Telephone encounter Note Printed patient section but did not see section for provider to sign. Messaged Janiya to see if needing scanned in still and she fixed. Forms put on provider desk to sign and called patient advising forms need done. Forms mailed to patient house and asked her to drop off when completed Leticia Bowens MA [facility] 05-05-2025 Telephone encounter Note PLEASE DO NOT FAX FORMS BACK TO I Do Now I Don't. Once signed by patient & provider please fax forms back to Patient Assistance Team ATTN : Kali at [phone]. Patient & Provider's section of patient assistance application through [employer] for medications (Ozempic 0.25/0.5mg) have been scanned into patient's chart. Patient Assistance Team is asking that forms be printed from scanned documents in EPIC at providers office for both patient & provider to review and sign. Once signed by both parties please fax back to PAP Team at [phone]. Thank You! Janiya Osborn CPhT [facility] 05-03-2025 Telephone encounter Note Called pt. to r/s missed appt. LVM. First attempt. [facility] 05-03-2025 Miscellaneous Notes Called pt. to r/s missed appt. LVM. First attempt. Called patient for scheduled phone appt today at 10:30 AM. Unable to reach x 3, LMOM x 2. Primary Care Pharmacy Rescheduling Outreach Call center, please contact patient and reschedule telephone visit for Diabetes management within ~4 week(s). (Visit length: 30 minutes) Thank you, Jake Edwards [facility] 05/03/2025 10:44 AM documented in this encounter [facility] 05-03-2025 Telephone encounter Note Called patient for scheduled phone appt today at 10:30 AM. Unable to reach x 3, LMOM x 2. Primary Care Pharmacy Rescheduling Outreach Call center, please contact patient and reschedule telephone visit for Diabetes management within ~4 week(s). (Visit length: 30 minutes) Thank you, Jake Edwards [facility] 05/03/2025 10:44 AM [facility] Work Phone: 04-10-2025 Telephone encounter Note [facility] Anticoagulation Clinic Anticoagulation Episode Summary Anticoagulation Care Providers Provider Role Specialty Phone number Estephania Rodriguez MD Referring Internal Medicine [phone] Wendy Forte is a 70 year old year old female patient being evaluated today for a Telemanagement visit. Patient is currently on the following anticoagulant(s) Warfarin. Labs PT INR (no units) Date Value 07/10/2024 2.5 12/13/2021 2.2 11/01/2021 2.2 INR (no units) Date Value 04/08/2025 1.9 03/03/2025 2.2 01/27/2025 2.5 CrCl cannot be calculated (Patient's most recent lab result is older than the maximum 180 days allowed.). 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: Anticoagulation Episode Summary Current INR goal: 2.0-3.0 Assessment: INR result of 1.9 is SUBtherapeutic due to: No obvious cause (patient denies liver, green tea, new herbal/nutritional supplements - such as Boost, Ensure, an increase in vit K foods and/or V8 type juices, any changes in warfarin tablet, or missed doses) Plan: Current Warfarin Dosing As of 04/10/2025 Full warfarin instructions: 04/10: 3.75 mg; Otherwise 1.25 mg every Alma; 2.5 mg all other days Called and spoke to patient/caregiver Advised patient to increase dose for 1 day only then resume weekly regimen as noted above Next INR check due on 05/15/2025 Patient verbalizes understanding of the plan. Jw Roberts RPh Clinical Pharmacist, Pharmacy Anticoagulation Clinic Pharmacy Anticoagulation Clinic Pager: [phone]. [facility] 04-10-2025 Miscellaneous Notes [facility] Anticoagulation Clinic Anticoagulation Episode Summary Anticoagulation Care Providers Provider Role Specialty Phone number Estephania Rodriguez MD Referring Internal Medicine [phone] Wendy Forte is a 70 year old year old female patient being evaluated today for a Telemanagement visit. Patient is currently on the following anticoagulant(s) Warfarin. Labs PT INR (no units) Date Value 07/10/2024 2.5 12/13/2021 2.2 11/01/2021 2.2 INR (no units) Date Value 04/08/2025 1.9 03/03/2025 2.2 01/27/2025 2.5 CrCl cannot be calculated (Patient's most recent lab result is older than the maximum 180 days allowed.). 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: Anticoagulation Episode Summary Current INR goal: 2.0-3.0 Assessment: INR result of 1.9 is SUBtherapeutic due to: No obvious cause (patient denies liver, green tea, new herbal/nutritional supplements - such as Boost, Ensure, an increase in vit K foods and/or V8 type juices, any changes in warfarin tablet, or missed doses) Plan: Current Warfarin Dosing As of 04/10/2025 Full warfarin instructions: 04/10: 3.75 mg; Otherwise 1.25 mg every Alma; 2.5 mg all other days Called and spoke to patient/caregiver Advised patient to increase dose for 1 day only then resume weekly regimen as noted above Next INR check due on 05/15/2025 Patient verbalizes understanding of the plan. Jw Roberts RPh Clinical Pharmacist, Pharmacy Anticoagulation Clinic Pharmacy Anticoagulation Clinic Pager: [phone]. documented in this encounter [facility] 04-05-2025 Telephone encounter Note [employer] will no longer be auto-shipping Ozempic to providers offices when patient is due for refill. Instead, a refill/reorder form will need to be filled in each time and signed by provider, faxed to company & processed for medication to be sent. Confirmed is taking Ozempic. Ozempic dose change is required --> Patient is only taking 0.25mg weekly at this time. We are doing gradual titrations due to tolerability issues. Hoping to eventually get up to 0.5mg weekly. Will inform PAP team if that happens. Confirmed last shipment date: 12/22/24 Jake Edwards, [employer], [facility] Primary Care Clinical Pharmacist [facility] 04-05-2025 Miscellaneous Notes [employer] will no longer be auto-shipping Ozempic to providers offices when patient is due for refill. Instead, a refill/reorder form will need to be filled in each time and signed by provider, faxed to company & processed for medication to be sent. Confirmed is taking Ozempic. Ozempic dose change is required --> Patient is only taking 0.25mg weekly at this time. We are doing gradual titrations due to tolerability issues. Hoping to eventually get up to 0.5mg weekly. Will inform PAP team if that happens. Confirmed last shipment date: 12/22/24 Jake Edwards PharmD, [facility] Primary [facility] Clinical Pharmacist documented in this encounter [facility] 03-27-2025 Telephone encounter Note Patient had cancelled scheduled PharmD visit for 03/22. PharmD called today to reschedule but unable to reach. LMOM to return call. Jake Edwards PharmD, [employer] Primary Care Clinical Pharmacist [facility] Work Phone: 03-27-2025 Miscellaneous Notes Patient had cancelled scheduled PharmD visit for 03/22. PharmD called today to reschedule but unable to reach. LMOM to return call. Jake Edwards PharmD, [employer] Primary Care Clinical Pharmacist documented in this encounter [facility] 03-03-2025 Telephone encounter Note [facility] Anticoagulation Clinic Anticoagulation Episode Summary Anticoagulation Care Providers Provider Role Specialty Phone number Estephania Rodriguez MD Referring Internal Medicine [phone] Wendy Forte is a 69 year old year old female patient being evaluated today for a Telemanagement visit. Patient is currently on the following anticoagulant(s) Warfarin. Labs Lab Results Component Value Date INR 2.2 (H) 03/03/2025 INR 2.5 (H) 01/27/2025 INR 2.5 (H) 12/31/2024 Lab Results Component Value Date HB 12.9 09/09/2023 HB 11.7 06/10/2023 HB 12.5 06/30/2022 Lab Results Component Value Date HCT 40.6 09/09/2023 HCT 37.7 06/10/2023 HCT 38.8 06/30/2022 Lab Results Component Value Date PLT 270 09/09/2023 PLT 257 06/10/2023 PLT 274 06/30/2022 Lab Results Component Value Date CREAT 0.77 09/24/2024 CREAT 0.72 08/19/2024 CREAT 0.74 02/08/2024 No components found for: [id number] Lab Results Component Value Date ALT 21 09/24/2024 ALT 27 08/19/2024 ALT 32 09/09/2023 Lab Results Component Value Date AST 35 09/24/2024 AST 31 08/19/2024 AST 26 09/09/2023 CrCl cannot be calculated (Unknown ideal weight.). 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 Jigna Arana RPh Clinical Pharmacist, Pharmacy Anticoagulation Clinic Pharmacy Anticoagulation Clinic Pager: [phone]. [facility] 03-03-2025 Miscellaneous Notes [facility] Anticoagulation Clinic Anticoagulation Episode Summary Anticoagulation Care Providers Provider Role Specialty Phone number Estephania Rodriguez MD Referring Internal Medicine [phone] Wendy Forte is a 69 year old year old female patient being evaluated today for a Telemanagement visit. Patient is currently on the following anticoagulant(s) Warfarin. Labs Lab Results Component Value Date INR 2.2 (H) 03/03/2025 INR 2.5 (H) 01/27/2025 INR 2.5 (H) 12/31/2024 Lab Results Component Value Date HB 12.9 09/09/2023 HB 11.7 06/10/2023 HB 12.5 06/30/2022 Lab Results Component Value Date HCT 40.6 09/09/2023 HCT 37.7 06/10/2023 HCT 38.8 06/30/2022 Lab Results Component Value Date PLT 270 09/09/2023 PLT 257 06/10/2023 PLT 274 06/30/2022 Lab Results Component Value Date CREAT 0.77 09/24/2024 CREAT 0.72 08/19/2024 CREAT 0.74 02/08/2024 No components found for: TBILI3 Lab Results Component Value Date ALT 21 09/24/2024 ALT 27 08/19/2024 ALT 32 09/09/2023 Lab Results Component Value Date AST 35 09/24/2024 AST 31 08/19/2024 AST 26 09/09/2023 CrCl cannot be calculated (Unknown ideal weight.). 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 Jigna Arana RPh Clinical Pharmacist, Pharmacy Anticoagulation Clinic Pharmacy Anticoagulation Clinic Pager: [phone]. documented in this encounter [facility] 01-23-2025 History of Present illness Narrative Primary Care Pharmacy Visit CC (Reason for Consult): Diabetes (E11.69, Z79.4) Type 2 diabetes mellitus with other specified complication, with long-term current use of insulin (HCC) (primary encounter diagnosis) Goal: A1c < 7% Last Collaborating Provider Visit: 01/09 Wendy Forte is a 69 year old female presenting for follow up visit telephone call. Patient consents to pharmacy collaborative practice agreement. Interim Events: 09/28/23: treated for UTI and overactive bladder 11/11: Referred to PharmD for DM mngt through panel mngt review 11/24: Started PAP application for ozempic. Med review due at follow up visit. 12/22: Basaglar increased; Ozempic PAP application still pending 12/30: pt advised to HOLD potassium and get f/up labs in 2 weeks 01/24: mealtime insulin added with lunch 03/23: no med changes made since pt in [place] 06/13: Ozempic started, insulin decreased 10/03: pt reported not tolerating Ozempic so had stopped; pt agreeable to retrying at a lower dose; SMBGs did not align with A1c so more frequent SMBG requested 11/14: pt had reported ongoing acute illness, had been off Ozempic; Ozempic restarted 12/12: pt had still not yet restarted Ozempic; advised to start Ozempic and decrease Humalog 01/09: PCP referred to gastroenterology for hepatic steatosis HPI: Did start Ozempic on January 08. Has had 3 doses. Hasn't had any issues or side effects. States she is only taking one click. Current DM Medications: Metformin ER 500mg tabs - 1000mg BID Semaglutide (Ozempic) 0.25mg weekly (only taking 1 click for 3 weeks) Insulin glargine (Basaglar) 40 units at bedtime Insulin lispro (Humalog) 6 units TIDAC if pre-meal BG >150 (hasn't needed it much; last dose was ~1 week ago; takes 8-10 units if sugar is >170 before meals) SMBGS (Fingersticks) Date Fasting AM 2 hr PP Before Lunch 2 hr PP Before Dinner 2 hr PP Bedtime 01/23 155 01/22 148 155 172 01/21 162 170 165 01/20 155 158 157 01/19 144 152 157 01/18 144 162 167 01/17 148 152 160 01/16 160 170 168 01/15 142 144 156 AVG 151 158 163 No major issues with lows. Only had 2 low over the past couple of months and they were minor; will feel shaky <140 mg/dL Preventative Medications: On VICTOR MANUEL/ARB: No On Statin: Yes ROS: Patient denies CP, SOB, CRUZ, blurred vision, dizziness or lightheadedness Patient denies symptoms of hypoglycemia (sweating, anxiety, palpitations, hunger, and tremor) Patient denies symptoms of hyperglycemia (polyuria, polydipsia, polyphagia) Patient denies potential medication adverse effects DIET/EXERCISE/SOCIAL Hx: No changes MEDICATIONS: Pill bottles are not present. Adherence: denies missed doses. Pharmacy: [facility] [address] [place] [phone] [facility] [phone] Rx coverage: Payor: MEDICARE / Plan: MEDICARE A AND B / Product Type: Medicare / Medications affordable? 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 ALLERGIES Allergen Reactions Sulfa (Sulfonamide * Rash BLISTERS Medication List Medication Directions Comments Action/Plan Biotin 10,000 mcg cap Take 10,000 mcg by mouth once daily. With Keratin 100 MG blood sugar diagnostic (FREESTYLE TEST) test strip Check 4 time daily as directed. DX E11.65, Insulin: Yes clopidogrel (PLAVIX) 75 mg tablet Take 1 tablet by mouth once daily. COMPOUNDED PRESCRIPTION Diabetic shoes with insoles. DX E11.65, E11,49 COMPOUNDED PRESCRIPTION Hinged knee brace for left knee--Don Janine OA Reaction Web Knee brace. Dx Knee pain and decreased mobility secondary to degenerative arthritis 715.96 Patient not taking: Reported on 10/06/2022 COMPOUNDED PRESCRIPTION mikel samano estradiol (ESTRACE) 0.01 % (0.1 mg/gram) vaginal cream Use 1 g vaginally two times a week. Apply before bed. Apply a pea-sized amount of cream to the vagina/vulva. FLUoxetine (PROZAC) 40 mg capsule Take 1 capsule by mouth once daily. IFEREX 150 150 mg iron capsule Take 1 capsule by mouth once daily. insulin glargine 100 unit/mL (3 mL) Inject 40 Units subcutaneously daily at bedtime. Patient assistance medication insulin lispro (HUMALOG KWIKPEN INSULIN) 100 unit/mL Take 6 units before meals if pre-meal BG >150 mg/dL. Patient assistance medication insulin needles, DISPOSABLE, (PEN NEEDLE) 31 gauge x 5/16 ndle Use one needle per dose. One per day. L. acidophilus/Bifid. animalis (DAILY PROBIOTIC ORAL) Take 1 capsule by mouth once daily. Lancets lancets Test blood sugar(s) 4 times daily as directed. Dx: diabetes E11.65. Insulin: Yes metFORMIN ER (GLUCOPHAGE XR) 500 mg 24 hr tablet Take 2 tablets by mouth two times a day with meals. metoprolol tartrate, short acting, (LOPRESSOR) 50 mg tablet Take 1 tablet by mouth two times a day. rosuvastatin (CRESTOR) 5 mg tablet Take 1 tablet by mouth daily at bedtime. semaglutide (OZEMPIC) 0.25 mg or 0.5 mg (2 mg/3 mL) pen Take 0.25mg weekly for 4 weeks then take 0.5mg weekly thereafter. Gets through [employer]. warfarin (COUMADIN) 2.5 mg tablet Start with 2.5 mg daily except 1.25mg Th Exam: There were no vitals taken for this visit. Last 3 Encounter BP Readings: Date: BP: 01/09/2025 138/60 11/10/2024 172/74 07/25/2024 114/77 Wt: 112.5 kg (248 lb 0.3 oz) BMI: 41.27 kg/(m^2) LABS: Reviewed Lab Results Component Value Date HBA1C 8.4 12/31/2024 HBA1C 9.8 09/24/2024 HBA1C 7.8 06/10/2024 HBA1C 8.2 09/20/2021 HBA1C 11.0 05/29/2021 HBA1C 10.3 11/12/2020 CMP: Glucose 171 09/24/2024 BUN 22 09/24/2024 Creatinine 0.77 09/24/2024 Sodium 138 09/24/2024 Potassium 4.3 09/24/2024 Chloride 102 09/24/2024 CO2 23 09/24/2024 Protein, Total 8.2 09/24/2024 Albumin 3.9 09/24/2024 Calcium 9.6 09/24/2024 Alkaline Phosphatase 141 09/24/2024 Bilirubin, Total 0.5 09/24/2024 AST 35 09/24/2024 ALT 27 08/19/2024 No results found for: GFR CrCl cannot be calculated (Unknown ideal weight.). Lab Results Component Value Date CHOL 176 08/19/2024 CHOL 148 05/29/2021 LDL 100 08/19/2024 LDL 69 05/29/2021 HDL 40 08/19/2024 HDL 34 05/29/2021 TG 180 08/19/2024 TG 225 05/29/2021 The 10-year ASCVD risk score (Zeinab MADERA, et al., 2019) is: 24.5% Values used to calculate the score: Age: 69 years Sex: Female Is Non- : No Diabetic: Yes Tobacco smoker: No Systolic Blood Pressure: 138 mmHg Is BP treated: Yes HDL Cholesterol: 40 mg/dL Total Cholesterol: 176 mg/dL Albumin/Creat Ratio (mg/g) Date Value 08/19/2024 254 (H) PHARMACOTHERAPY ASSESSMENT/PLAN: 1. Type 2 diabetes mellitus with other specified complication, with long-term current use of insulin (HCC) - ICD9: 250.80, V58.67, ICD10: E11.69, Z79.4 A1c goal < 7%; uncontrolled but improving (last A1c 9.8-->8.4%); SMBGs reasonable; pt has been taking much smaller Ozempic dose than discussed due to misunderstanding, has only been taking 1 click which is smaller than the priming dose; will have her increase Ozempic dose, will still plan for a very gradual titration to help ensure tolerability; no more issues with lows; f/up in ~2 months INCREASE Ozempic to 1/2 the # of clicks that it takes to get from the 0 to the 0.25 agustina. Take this dose for 2 weeks in a row. Then increase the dose gradually to 3/4 the # of clicks x 2 weeks in a row. If tolerating well, then increase to 0.25mg weekly. Ex: Hypothetically let's say it takes 20 clicks to get from 0 to 0.25: Today she would take 10 clicks. Next Thursday she would take 10 clicks. The following Thursday she would take 15 clicks. The following Thursday she would take 15 clicks again. The following Thursday she would take 0.25mg (which is 20 clicks) Advised to reach out to PharmD if any issues Applauded on improved A1c Health Maintenance - Diabetes Topic Date Due Diabetic Foot Exam 06/06/2023 Dilated Retinal Exam 08/28/2024 Follow-up Patient is scheduled to see PCP team on 06/24. Patient to have f/up with PharmD team on 03/22. Patient verbalized understanding of instructions. Jake Edwards, Rusty, [facility] Primary Care Clinical Pharmacist Time spent: 21 mins documented in this encounter [facility] 01-23-2025 Note HNO ID: [id number] Author: JAKE EDWARDS RPh Service: ? Author Type: Pharmacist Type: Progress Notes Filed: 01/23/2025 14:02 Note Text: Primary Care Pharmacy Visit CC (Reason for Consult): Diabetes (E11.69, Z79.4) Type 2 diabetes mellitus with other specified complication, with long-term current use of insulin (HCC) (primary encounter diagnosis) Goal: A1c < 7% Last Collaborating Provider Visit: 01/09 Wendy Forte is a 69 year old female presenting for follow up visit telephone call. Patient consents to pharmacy collaborative practice agreement. Interim Events: 09/28/23: treated for UTI and overactive bladder 11/11: Referred to PharmD for DM mngt through panel mngt review 11/24: Started PAP application for ozempic. Med review due at follow up visit. 12/22: Basaglar increased; Ozempic PAP application still pending 12/30: pt advised to HOLD potassium and get f/up labs in 2 weeks 01/24: mealtime insulin added with lunch 03/23: no med changes made since pt in [place] 06/13: Ozempic started, insulin decreased 10/03: pt reported not tolerating Ozempic so had stopped; pt agreeable to retrying at a lower dose; SMBGs did not align with A1c so more frequent SMBG requested 11/14: pt had reported ongoing acute illness, had been off Ozempic; Ozempic restarted 12/12: pt had still not yet restarted Ozempic; advised to start Ozempic and decrease Humalog 01/09: PCP referred to gastroenterology for hepatic steatosis HPI: Did start Ozempic on January 08. Has had 3 doses. Hasn't had any issues or side effects. States she is only taking one click. Current DM Medications: Metformin ER 500mg tabs - 1000mg BID Semaglutide (Ozempic) 0.25mg weekly (only taking 1 click for 3 weeks) Insulin glargine (Basaglar) 40 units at bedtime Insulin lispro (Humalog) 6 units TIDAC if pre-meal BG >150 (hasn't needed it much; last dose was ~1 week ago; takes 8-10 units if sugar is >170 before meals) SMBGS (Fingersticks) Date Fasting AM 2 hr PP Before Lunch 2 hr PP Before Dinner 2 hr PP Bedtime 01/23 155 01/22 148 155 172 01/21 162 170 165 01/20 155 158 157 01/19 144 152 157 01/18 144 162 167 01/17 148 152 160 01/16 160 170 168 01/15 142 144 156 AVG 151 158 163 No major issues with lows. Only had 2 low over the past couple of months and they were minor; will feel shaky <140 mg/dL Preventative Medications: On VICTOR MANUEL/ARB: No On Statin: Yes ROS: Patient denies CP, SOB, CRUZ, blurred vision, dizziness or lightheadedness Patient denies symptoms of hypoglycemia (sweating, anxiety, palpitations, hunger, and tremor) Patient denies symptoms of hyperglycemia (polyuria, polydipsia, polyphagia) Patient denies potential medication adverse effects DIET/EXERCISE/SOCIAL Hx: No changes MEDICATIONS: Pill bottles are not present. Adherence: denies missed doses. Pharmacy: [facility] [address] [place] [id number] [phone] [phone] Rx coverage: Payor: MEDICARE / Plan: MEDICARE A AND B / Product Type: Medicare / Medications affordable? Yes Diabetes Supplies: Yes Organization system: ACTIVE PROBLEM LIST Htn (Hypertension), Benign Hyperlipidemia Type II Diabetes Mellitus, Uncontrolled Urinary Frequency Panic Disorder Without Agoraphobia Gerd (Gastroesophageal Reflux Disease) Heart Palpitations Obesity, Morbid, Bmi 40.0-49.9 ([facility]) Type 2 Diabetes Mellitus With Hyperglycemia, Without Long-Term Current Use of Insulin ([facility]) Paf (Paroxysmal Atrial Fibrillation) ([facility]) Snf Current Use of Anticoagulant Recurrent Major Depressive Disorder, in Full Remission PAST MEDICAL HISTORY Diagnosis Date Adjustment disorder with depressed mood Bladder wall thickening Diverticulitis 2022 Mild Hyperlipidemia 06/13/2009 Mixed stress and urge incontinence Mixed stress and urge incontinence OAB (overactive bladder) Obesity, morbid, BMI 40.0-49.9 ([facility]) Other and unspecified hyperlipidemia Type II or unspecified type diabetes mellitus without mention of complication, not stated as uncontrolled Unspecified essential hypertension Urinary frequency Past medical history reviewed. ALLERGIES Allergen Reactions Sulfa (Sulfonamide * Rash BLISTERS Medication List Medication Directions Comments Action/Plan Biotin 10,000 mcg cap Take 10,000 mcg by mouth once daily. With Keratin 100 MG blood sugar diagnostic (FREESTYLE TEST) test strip Check 4 time daily as directed. DX E11.65, Insulin: Yes clopidogrel (PLAVIX) 75 mg tablet Take 1 tablet by mouth once daily. COMPOUNDED PRESCRIPTION Diabetic shoes with insoles. DX E11.65, E11,49 COMPOUNDED PRESCRIPTION Hinged knee brace for left knee--Don Janine OA Reaction Web Knee brace. Dx Knee pain and decreased mobility secondary to degenerative arthritis 715.96 Patient not taking: Reported on 10/06/2022 COMPOUNDED PRESCRIPTION ascensia lancets estradiol (ESTRACE) 0.01 % (0.1 mg/gram) vaginal cream Use 1 g vaginally two times a week. Apply bef (more content not included)... [facility] 01-10-2025 Telephone encounter Note Pt picked up at 01/09/25 appt. [facility] 01-10-2025 Miscellaneous Notes Pt picked up at 01/09/25 appt. This is in the fridge on the left side. Pt says she will pick this up the last week of the month. Rec'd 5 boxes of ozempic 0.25mg,0.5mg 1X3ml prefilled pen Lot number [id number] and exp date 06/06/27. documented in this encounter [facility] 01-09-2025 Instructions Estephania Rdoriguez MD - 01/09/2025 5:21 PM EDT Continue taking your current medications (metformin and Ozempic) exactly as prescribed. Keep following your healthy eating habits and stay active (using your walker) to help improve your A1c and overall health. A1c results show improvement (8.4); continue your lifestyle efforts to maintain these gains. A lab work-up is scheduled for July. These labs include a comprehensive metabolic panel, complete blood count, A1c, cholesterol panel, and a vitamin D level check. Follow any lab preparation instructions you receive. A consult order for a plant hr manager has been placed regarding your liver elastography findings (showing fatty liver with evidence of fibrosis/cirrhosis). Please schedule this GI appointment. If you have trouble getting through by phone, call our nurse for assistance. An order for a mammogram has also been issued. Please schedule your mammogram at your convenience. If you experience further leg swelling, consider wearing looser-fitting socks. Attend your scheduled podiatry appointment for toenail care. documented in this encounter [facility] 01-09-2025 Note HNO ID: [id number] Author: ESTEPHANIA RODRIGUEZ MD Service: ? Author Type: Physician Type: Progress Notes Filed: 01/10/2025 00:58 Note Text: This note was created using NoteWriter. Subjective Wendy Forte is a 69 year old female. Patient presents with: Follow Up: Due for colonoscopy Wendy is a 69-year-old female with a history of DM and fatty liver, presenting for follow-up on recent lab results and elastography. Wendy reports improvement in glycemic control, noting a decrease in the frequency of insulin use. She is currently on metformin and Ozempic, the latter of which she is taking at a low dose due to previous adverse effects. Recent lab results show an HbA1c of 8.4, down from previous levels. Weight is 242 lbs, with a slight increase noted. Wendy recently underwent an elastography, which indicated significant fibrosis. Previous liver function tests showed a slight elevation in alkaline phosphatase (141 U/L, with a high normal of 123 U/L), down from 153 U/L. AST and ALT levels were within normal limits. A CT scan performed in February 2023 revealed hepatic steatosis. Kidney function tests from September showed a BUN level that was slightly elevated, but creatinine levels were normal, and the estimated glomerular filtration rate was 84 mL/min/1.73 m?. Wendy denies any current symptoms related to liver or kidney function. PAST MEDICAL HISTORY Diagnosis Date Adjustment disorder with depressed mood Bladder wall thickening Diverticulitis 2022 Mild Hyperlipidemia 06/13/2009 Mixed stress and urge incontinence Mixed stress and urge incontinence OAB (overactive bladder) Obesity, morbid, BMI 40.0-49.9 (HCC) Other and unspecified hyperlipidemia Type II or unspecified type diabetes mellitus without mention of complication, not stated as uncontrolled Unspecified essential hypertension Urinary frequency Current Outpatient Medications Medication Sig insulin lispro (HUMALOG KWIKPEN INSULIN) 100 unit/mL Take 6 units before meals if pre-meal BG >150 mg/dL. Patient assistance medication insulin glargine 100 unit/mL (3 mL) Inject 40 Units subcutaneously daily at bedtime. Patient assistance medication clopidogrel (PLAVIX) 75 mg tablet Take 1 tablet by mouth once daily. FLUoxetine (PROZAC) 40 mg capsule Take 1 capsule by mouth once daily. IFEREX 150 150 mg iron capsule Take 1 capsule by mouth once daily. metFORMIN ER (GLUCOPHAGE XR) 500 mg 24 hr tablet Take 2 tablets by mouth two times a day with meals. metoprolol tartrate, short acting, (LOPRESSOR) 50 mg tablet Take 1 tablet by mouth two times a day. rosuvastatin (CRESTOR) 5 mg tablet Take 1 tablet by mouth daily at bedtime. warfarin (COUMADIN) 2.5 mg tablet Start with 2.5 mg daily except 1.25mg Thurs semaglutide (OZEMPIC) 0.25 mg or 0.5 mg (2 mg/3 mL) pen Take 0.25mg weekly for 4 weeks then take 0.5mg weekly thereafter. Gets through [employer]. L. acidophilus/Bifid. animalis (DAILY PROBIOTIC ORAL) Take 1 capsule by mouth once daily. estradiol (ESTRACE) 0.01 % (0.1 mg/gram) vaginal cream Use 1 g vaginally two times a week. Apply before bed. Apply a pea-sized amount of cream to the vagina/vulva. Biotin 10,000 mcg cap Take 10,000 mcg by mouth once daily. With Keratin 100 MG Lancets lancets Test blood sugar(s) 4 times daily as directed. Dx: diabetes E11.65. Insulin: Yes insulin needles, DISPOSABLE, (PEN NEEDLE) 31 gauge x 5/16 ndle Use one needle per dose. One per day. COMPOUNDED PRESCRIPTION Diabetic shoes with insoles. DX E11.65, E11,49 COMPOUNDED PRESCRIPTION ascensia lancets blood sugar diagnostic (FREESTYLE TEST) test strip Check 4 time daily as directed. DX E11.65, Insulin: Yes COMPOUNDED PRESCRIPTION Hinged knee brace for left knee--Don Janine OA Reaction Web Knee brace. Dx Knee pain and decreased mobility secondary to degenerative arthritis 715.96 (Patient not taking: Reported on 10/06/2022) No current facility-administered medications for this visit. Review of Systems Objective BP 138/60 Pulse 71 Resp 16 Wt 112.5 kg (248 lb 0.3 oz) SpO2 98% BMI 41.27 kg/m? Physical Exam Constitutional: Appearance: Normal appearance. HENT: Head: Normocephalic. Eyes: Conjunctiva/sclera: Conjunctivae normal. Cardiovascular: Rate and Rhythm: Normal rate and regular rhythm. Heart sounds: Normal heart sounds. Pulmonary: Effort: Pulmonary effort is normal. Breath sounds: Normal breath sounds. Musculoskeletal: Right lower le+ Pitting Edema present. Left lower le+ Pitting Edema present. Skin: General: Skin is warm and dry. Neurological: General: No focal deficit present. Mental Status: She is alert and oriented to person, place, and time. Psychiatric: Mood and Affect: Mood normal. Behavior: Behavior normal. Thought Content: Thought content normal. Judgment: Judgment normal. Hemoglobin A1C (%) Date Value 12/31/2024 8.4 09/24/2024 9.8 06/10/2024 7.8 09/09/2023 9.6 (more content not included)... [facility] 01-09-2025 History of Present illness Narrative This note was created using Hippflowter. Subjective Wendy Forte is a 69 year old female. Patient presents with: Follow Up: Due for colonoscopy Wendy is a 69-year-old female with a history of DM and fatty liver, presenting for follow-up on recent lab results and elastography. Wendy reports improvement in glycemic control, noting a decrease in the frequency of insulin use. She is currently on metformin and Ozempic, the latter of which she is taking at a low dose due to previous adverse effects. Recent lab results show an HbA1c of 8.4, down from previous levels. Weight is 242 lbs, with a slight increase noted. Wendy recently underwent an elastography, which indicated significant fibrosis. Previous liver function tests showed a slight elevation in alkaline phosphatase (141 U/L, with a high normal of 123 U/L), down from 153 U/L. AST and ALT levels were within normal limits. A CT scan performed in February 2023 revealed hepatic steatosis. Kidney function tests from September showed a BUN level that was slightly elevated, but creatinine levels were normal, and the estimated glomerular filtration rate was 84 mL/min/1.73 m . Wendy denies any current symptoms related to liver or kidney function. PAST MEDICAL HISTORY Diagnosis Date Adjustment disorder with depressed mood Bladder wall thickening Diverticulitis 2022 Mild Hyperlipidemia 06/13/2009 Mixed stress and urge incontinence Mixed stress and urge incontinence OAB (overactive bladder) Obesity, morbid, BMI 40.0-49.9 (HCC) Other and unspecified hyperlipidemia Type II or unspecified type diabetes mellitus without mention of complication, not stated as uncontrolled Unspecified essential hypertension Urinary frequency Current Outpatient Medications Medication Sig insulin lispro (HUMALOG KWIKPEN INSULIN) 100 unit/mL Take 6 units before meals if pre-meal BG >150 mg/dL. Patient assistance medication insulin glargine 100 unit/mL (3 mL) Inject 40 Units subcutaneously daily at bedtime. Patient assistance medication clopidogrel (PLAVIX) 75 mg tablet Take 1 tablet by mouth once daily. FLUoxetine (PROZAC) 40 mg capsule Take 1 capsule by mouth once daily. IFEREX 150 150 mg iron capsule Take 1 capsule by mouth once daily. metFORMIN ER (GLUCOPHAGE XR) 500 mg 24 hr tablet Take 2 tablets by mouth two times a day with meals. metoprolol tartrate, short acting, (LOPRESSOR) 50 mg tablet Take 1 tablet by mouth two times a day. rosuvastatin (CRESTOR) 5 mg tablet Take 1 tablet by mouth daily at bedtime. warfarin (COUMADIN) 2.5 mg tablet Start with 2.5 mg daily except 1.25mg Thurs semaglutide (OZEMPIC) 0.25 mg or 0.5 mg (2 mg/3 mL) pen Take 0.25mg weekly for 4 weeks then take 0.5mg weekly thereafter. Gets through [employer]. L. acidophilus/Bifid. animalis (DAILY PROBIOTIC ORAL) Take 1 capsule by mouth once daily. estradiol (ESTRACE) 0.01 % (0.1 mg/gram) vaginal cream Use 1 g vaginally two times a week. Apply before bed. Apply a pea-sized amount of cream to the vagina/vulva. Biotin 10,000 mcg cap Take 10,000 mcg by mouth once daily. With Keratin 100 MG Lancets lancets Test blood sugar(s) 4 times daily as directed. Dx: diabetes E11.65. Insulin: Yes insulin needles, DISPOSABLE, (PEN NEEDLE) 31 gauge x 5/16 ndle Use one needle per dose. One per day. COMPOUNDED PRESCRIPTION Diabetic shoes with insoles. DX E11.65, E11,49 COMPOUNDED PRESCRIPTION ascensia lancets blood sugar diagnostic (FREESTYLE TEST) test strip Check 4 time daily as directed. DX E11.65, Insulin: Yes COMPOUNDED PRESCRIPTION Hinged knee brace for left knee--Don Janine OA Reaction Web Knee brace. Dx Knee pain and decreased mobility secondary to degenerative arthritis 715.96 (Patient not taking: Reported on 10/06/2022) No current facility-administered medications for this visit. Review of Systems Objective BP 138/60 Pulse 71 Resp 16 Wt 112.5 kg (248 lb 0.3 oz) SpO2 98% BMI 41.27 kg/m Physical Exam Constitutional: Appearance: Normal appearance. HENT: Head: Normocephalic. Eyes: Conjunctiva/sclera: Conjunctivae normal. Cardiovascular: Rate and Rhythm: Normal rate and regular rhythm. Heart sounds: Normal heart sounds. Pulmonary: Effort: Pulmonary effort is normal. Breath sounds: Normal breath sounds. Musculoskeletal: Right lower le+ Pitting Edema present. Left lower le+ Pitting Edema present. Skin: General: Skin is warm and dry. Neurological: General: No focal deficit present. Mental Status: She is alert and oriented to person, place, and time. Psychiatric: Mood and Affect: Mood normal. Behavior: Behavior normal. Thought Content: Thought content normal. Judgment: Judgment normal. Hemoglobin A1C (%) Date Value 12/31/2024 8.4 09/24/2024 9.8 06/10/2024 7.8 09/09/2023 9.6 06/10/2023 8.9 09/20/2021 8.2 05/29/2021 11.0 11/12/2020 10.3 07/03/2020 11.8 10/13/2018 11.2 Hemoglobin A1C (POCT) (%) Date Value 01/08/2019 10.6 Latest Ref Rng 09/09/2023 02/08/2024 06/10/2024 08/19/2024 09/24/2024 11/05/2024 12/03/2024 12/31/2024 Protein, Total 6.3 - 8.0 g/dL 8.1 (H) 8.0 8.2 (H) Albumin 3.9 - 4.9 g/dL 3.9 3.8 (L) 3.9 Calcium 8.5 - 10.2 mg/dL 9.9 9.5 9.4 9.6 Bilirubin, Total 0.2 - 1.3 mg/dL 0.5 0.5 0.5 Alkaline Phosphatase 34 - 123 U/L 123 153 (H) 141 (H) Alkaline Phosphatase 34 - 123 U/L 141 (H) AST 13 - 35 U/L 26 31 35 ALT 7 - 38 U/L 32 27 21 Glucose 74 - 99 mg/dL 301 (H) 251 (H) 243 (H) 171 (H) BUN 7 - 21 mg/dL 19 21 23 (H) 22 (H) Creatinine 0.58 - 0.96 mg/dL 0.69 0.74 0.72 0.77 Sodium 136 - 144 mmol/L 136 138 135 (L) 138 Potassium 3.7 - 5.1 mmol/L 5.1 4.1 4.5 4.3 Chloride 98 - 107 mmol/L 99 104 100 102 CO2 22 - 30 mmol/L 26 23 24 23 Anion Gap 8 - 15 mmol/L 11 11 11 13 eGFR >=60 mL/min/1.73m 95 88 91 84 WBC 3.70 - 11.00 k/uL 7.40 RBC 3.90 - 5.20 m/uL 4.40 Hemoglobin 11.5 - 15.5 g/dL 12.9 Hematocrit 36.0 - 46.0 % 40.6 MCV 80.0 - 100.0 fL 92.3 MCH 26.0 - 34.0 pg 29.3 MCHC 30.5 - 36.0 g/dL 31.8 RDW-CV 11.5 - 15.0 % 13.9 Platelet Count 150 - 400 k/uL 270 MPV 9.0 - 12.7 fL 10.3 Absolute nRBC <0.01 k/uL <0.01 Cholesterol, Total <200 mg/dL 176 Triglyceride <150 mg/dL 180 (H) HDL Cholesterol >39 mg/dL 40 Non HDL Cholesterol <130 mg/dL 136 (H) Fasting Time hrs 12 VLDL Cholesterol <30 mg/dL 36 (H) TC:HDL Ratio <5.10 4.40 LDL Cholesterol, Calculated <100 mg/dL 100 (H) LDL:HDL Ratio <2.54 2.50 Bilirubin, Direct <0.3 mg/dL 0.2 Alk Phos Bone % 10.7 - 68.3 % 32.6 Bone Fraction 12.9 - 52.6 U/L 46.0 Alk Phos Liver % 26.0 - 86.2 % 67.4 Liver Fraction 16.0 - 69.3 U/L 95.0 (H) Alk Phos Intestine % 0.0 - 24.2 % 0.0 Intestine Fraction 0.0 - 16.3 U/L 0.0 Creatinine, Ur Random (UCRR) 20.0 - 300.0 mg/dL 171.6 Albumin, Urine Random mg/L 436.0 Albumin/Creat Ratio <30 mg/g 254 (H) Hemoglobin A1C 4.3 - 5.6 % 9.6 (H) 7.8 (H) 9.8 (H) 8.4 (H) Estimated Average Glucose mg/dL 229 177 235 194 PT Sec 9.7 - 13.0 sec 19.8 (H) 22.7 (H) 34.0 (H) 21.4 (H) 25.2 (H) PT INR 0.9 - 1.3 1.9 (H) 2.2 (H) 3.4 (H) 2.1 (H) 2.5 (H) Legend: (H) High (L) Low Assessment and Plan # Type 2 diabetes mellitus with other specified complication, with long-term current use of insulin (HCC) (E11.69) - Hemoglobin A1c improved to 8.4%. - Continue current regimen of Metformin and Ozempic at the lowest dose due to previous adverse effects. - Reduced need for insulin administration; continue as needed based on blood glucose levels. - Encouraged continuation of healthy dietary choices and physical activity to further improve glycemic control. - Follow-up in July for repeat A1c testing. # Hepatic steatosis (K76.0) - Recent ultrasound elastography indicates significant hepatic fibrosis/cirrhosis. - Liver enzymes: ALP slightly elevated at 141 U/L, down from 153 U/L; AST and ALT within normal limits. - Discussed potential for reversibility with weight loss and dietary modifications. - Referral to gastroenterology for further evaluation and management. - Follow-up in July for repeat liver function tests. # Mixed hyperlipidemia (E78.2) - Continue current lipid-lowering therapy. - Follow-up in July for repeat lipid panel. # Primary hypertension (I10) - Blood pressure management stable. - Continue current antihypertensive regimen. # Class 3 severe obesity due to excess calories with body mass index (BMI) of 40.0 to 44.9 in adult, unspecified whether serious comorbidity present (E66.813) - Current weight 242 lbs. - Emphasized importance of weight loss in managing hepatic steatosis and improving overall health. - Encouraged continuation of healthy dietary choices and physical activity. # Encounter for long-term current use of medication (Z79.899) - Continue current medications: Metformin, Ozempic, antihypertensives, and lipid-lowering agents. # Breast cancer screening by mammogram (Z12.31) - Ordered mammogram for breast cancer screening. # Anticoagulated on Coumadin (Z79.01) - Continue current anticoagulation therapy. - Regular INR monitoring as per current schedule. Estephania Rodriguez MD Recording using ambient [employer] software for draft documentation of the visit was discussed with the patient/authorized insurance claim representative; all questions welcomed and answered. Patient/authorized insurance claim representative agreed to proceed documented in this encounter [facility] 12-22-2024 Telephone encounter Note This is in the fridge on the left side. Pt says she will pick this up the last week of the month. [facility] 12-22-2024 Telephone encounter Note Rec'd 5 boxes of ozempic 0.25mg,0.5mg 1X3ml prefilled pen Lot number [id number] and exp date 06/06/27. [facility] 12-12-2024 History of Present illness Narrative Primary Care Pharmacy Visit CC (Reason for Consult): Diabetes (E11.69, Z79.4) Type 2 diabetes mellitus with other specified complication, with long-term current use of insulin (HCC) (primary encounter diagnosis) Goal: A1c < 7% Last Collaborating Provider Visit: 07/15/24 Wendy Forte is a 69 year old female presenting for follow up visit telephone call. Patient consents to pharmacy collaborative practice agreement. Interim Events: 09/28/23: treated for UTI and overactive bladder 11/11: Referred to PharmD for DM mngt through panel mngt review 11/24: Started PAP application for ozempic. Med review due at follow up visit. 12/22: Basaglar increased; Ozempic PAP application still pending 12/30: pt advised to HOLD potassium and get f/up labs in 2 weeks 01/24: mealtime insulin added with lunch 03/23: no med changes made since pt in [place] 06/13: Ozempic started, insulin decreased 10/03: pt reported not tolerating Ozempic so had stopped; pt agreeable to retrying at a lower dose; SMBGs did not align with A1c so more frequent SMBG requested 11/14: pt had reported ongoing acute illness, had been off Ozempic; Ozempic restarted HPI: Patient is feeling better. Acute illness is resolved. Did not retry the Ozempic yet, wanted to have today's visit first to see how her sugars are to determine how to adjust insulin doses if needed. No stomach issues. Still gets occasional urinary urgency - comes and goes. Plans to discuss with PCP. Current DM Medications: Metformin ER 500mg tabs - 1000mg BID Semaglutide (Ozempic) 0.25mg weekly (has not yet restarted) Insulin glargine (Basaglar) 40 units at bedtime Insulin lispro (Humalog) 6-10 units TIDAC if pre-meal BG >150 (taking 10 units if pre-meal reading is <150 mg/dL; taking usually 3-4x/week) SMBGS (Fingersticks) Date Fasting AM 2 hr PP Before Lunch 2 hr PP Before Dinner 2 hr PP Bedtime 12/12 139 128 12/11 132 142 122 12/10 139 124 137 12/09 237 232 189 12/08 167 155 211 12/07 192 189 173 12/06 201 188 195 12/05 125 130 156 12/04 131 149 113 (oscar) 12/03 151 105 (shaky) 116 AVG 161 154 157 Preventative Medications: On VICTOR MANULE/ARB: No On Statin: Yes ROS: Patient denies CP, CRUZ, blurred vision, dizziness or lightheadedness. Still has occasional SOB but believes it is remnant of her recent pneumonia. Patient denies symptoms of hypoglycemia (sweating, anxiety, palpitations, hunger, and tremor) Patient denies symptoms of hyperglycemia (polyuria, polydipsia, polyphagia) Patient denies potential medication adverse effects DIET/EXERCISE/SOCIAL Hx: Snacking on nuts and low calorie foods; grapes, string cheese; wheat thin crackers Breakfast: eats very light lunch MEDICATIONS: Pill bottles are not present. Adherence: denies missed doses. Pharmacy: [facility] [address] [place] [id number] - [address] [phone] Rx coverage: Payor: MEDICARE / Plan: MEDICARE A AND B / Product Type: Medicare / Medications affordable? Yes Diabetes Supplies: Yes Organization system: ACTIVE PROBLEM LIST Htn (Hypertension), Benign Hyperlipidemia Type II Diabetes Mellitus, Uncontrolled Urinary Frequency Panic Disorder Without Agoraphobia Gerd (Gastroesophageal Reflux Disease) Heart Palpitations Obesity, Morbid, Bmi 40.0-49.9 (Formerly [facility]) Type 2 Diabetes Mellitus With Hyperglycemia, Without Long-Term Current Use of Insulin ([facility]) Paf (Paroxysmal Atrial Fibrillation) ([facility]) Snf Current Use of Anticoagulant Recurrent Major Depressive Disorder, in Full Remission PAST MEDICAL HISTORY Diagnosis Date Adjustment disorder with depressed mood Bladder wall thickening Diverticulitis 2022 Mild Hyperlipidemia 06/13/2009 Mixed stress and urge incontinence Mixed stress and urge incontinence OAB (overactive bladder) Obesity, morbid, BMI 40.0-49.9 ([facility]) Other and unspecified hyperlipidemia Type II or unspecified type diabetes mellitus without mention of complication, not stated as uncontrolled Unspecified essential hypertension Urinary frequency Past medical history reviewed. ALLERGIES Allergen Reactions Sulfa (Sulfonamide * Rash BLISTERS Medication List Medication Directions Comments Action/Plan Biotin 10,000 mcg cap Take 10,000 mcg by mouth once daily. With Keratin 100 MG blood sugar diagnostic (FREESTYLE TEST) test strip Check 4 time daily as directed. DX E11.65, Insulin: Yes clopidogrel (PLAVIX) 75 mg tablet Take 1 tablet by mouth once daily. COMPOUNDED PRESCRIPTION Diabetic shoes with insoles. DX E11.65, E11,49 COMPOUNDED PRESCRIPTION Hinged knee brace for left knee--Don Janine OA Reaction Web Knee brace. Dx Knee pain and decreased mobility secondary to degenerative arthritis 715.96 Patient not taking: Reported on 10/06/2022 COMPOUNDED PRESCRIPTION ascensia lancets estradiol (ESTRACE) 0.01 % (0.1 mg/gram) vaginal cream Use 1 g vaginally two times a week. Apply before bed. Apply a pea-sized amount of cream to the vagina/vulva. FLUoxetine (PROZAC) 40 mg capsule Take 1 capsule by mouth once daily. IFEREX 150 150 mg iron capsule Take 1 capsule by mouth once daily. insulin glargine 100 unit/mL (3 mL) Inject 40 Units subcutaneously daily at bedtime. Patient assistance medication insulin lispro (HUMALOG KWIKPEN INSULIN) 100 unit/mL Take 6-10 units before meals if pre-meal BG >150 mg/dL. Patient assistance medication insulin needles, DISPOSABLE, (PEN NEEDLE) 31 gauge x 5/16 ndle Use one needle per dose. One per day. L. acidophilus/Bifid. animalis (DAILY PROBIOTIC ORAL) Take 1 capsule by mouth once daily. Lancets lancets Test blood sugar(s) 4 times daily as directed. Dx: diabetes E11.65. Insulin: Yes metFORMIN ER (GLUCOPHAGE XR) 500 mg 24 hr tablet Take 2 tablets by mouth two times a day with meals. metoprolol tartrate, short acting, (LOPRESSOR) 50 mg tablet Take 1 tablet by mouth two times a day. rosuvastatin (CRESTOR) 5 mg tablet Take 1 tablet by mouth daily at bedtime. semaglutide (OZEMPIC) 0.25 mg or 0.5 mg (2 mg/3 mL) pen Take 0.25mg weekly for 4 weeks then take 0.5mg weekly thereafter. Gets through [employer]. warfarin (COUMADIN) 2.5 mg tablet Start with 2.5 mg daily except 1.25mg Th Exam: There were no vitals taken for this visit. Last 3 Encounter BP Readings: Date: BP: 11/10/2024 172/74 07/25/2024 114/77 09/28/2023 150/86 Wt: 110 kg (242 lb 8.1 oz) BMI: 40.36 kg/(m^2) LABS: Reviewed Lab Results Component Value Date HBA1C 9.8 09/24/2024 HBA1C 7.8 06/10/2024 HBA1C 9.6 09/09/2023 HBA1C 8.2 09/20/2021 HBA1C 11.0 05/29/2021 HBA1C 10.3 11/12/2020 CMP: Glucose 171 09/24/2024 BUN 22 09/24/2024 Creatinine 0.77 09/24/2024 Sodium 138 09/24/2024 Potassium 4.3 09/24/2024 Chloride 102 09/24/2024 CO2 23 09/24/2024 Protein, Total 8.2 09/24/2024 Albumin 3.9 09/24/2024 Calcium 9.6 09/24/2024 Alkaline Phosphatase 141 09/24/2024 Bilirubin, Total 0.5 09/24/2024 AST 35 09/24/2024 ALT 27 08/19/2024 eGFR 84 Lab Results Component Value Date CHOL 176 08/19/2024 CHOL 148 05/29/2021 LDL 100 08/19/2024 LDL 69 05/29/2021 HDL 40 08/19/2024 HDL 34 05/29/2021 TG 180 08/19/2024 TG 225 05/29/2021 The 10-year ASCVD risk score (Zeinab MADERA, et al., 2019) is: 35.4% Values used to calculate the score: Age: 69 years Sex: Female Is Non- : No Diabetic: Yes Tobacco smoker: No Systolic Blood Pressure: 172 mmHg Is BP treated: Yes HDL Cholesterol: 40 mg/dL Total Cholesterol: 176 mg/dL Albumin/Creat Ratio (mg/g) Date Value 08/19/2024 254 (H) PHARMACOTHERAPY ASSESSMENT/PLAN: 1. Type 2 diabetes mellitus with other specified complication, with long-term current use of insulin (HCC) - ICD9: 250.80, V58.67, ICD10: E11.69, Z79.4 A1c goal < 7%; uncontrolled (last A1c 9.8%); SMBGs reasonably controlled; occasional low sx if <120 mg/dL but no sugars <70 mg/dL; feeling much better now, is open to retrying Ozempic; will restart with a very low dose with gradual titration to improve chances of her tolerating Ozempic; will preemptively decrease mealtime insulin once starting Ozempic; f/up after next PCP visit and labs INITIATE Ozempic 0.25mg weekly (advised to start with 1/2 the number of clicks needed to get to 0.25mg agustina on pen (which would be ~0.125mg) - do this for 2-4 weeks and gradually [address] way up to 0.25mg weekly Counseled on potential for GI issues or problems with pancreas or gall bladder. Advised to contact office if any severe diarrhea/nausea/vomiting or abdominal pains DECREASE Humalog to 6 units with meals if pre-meal BG >150 mg/dL CONTINUE Basaglar 40 units daily. If FBGs start to drop frequently <100 mg/dL or having frequent sx of low sugars, advised to reduce to 34 units daily. Continue other medications Advised to reschedule her liver ultrasound that she had to cancel last month - INSULIN LISPRO (U-100) 100 UNIT/ML SUBCUTANEOUS PEN - HEMOGLOBIN A1C Health Maintenance - Diabetes Topic Date Due Diabetic Foot Exam 06/06/2023 Dilated Retinal Exam 08/28/2024 Follow-up Patient is scheduled to see PCP team on 01/09. Patient to have f/up with PharmD team on 01/23. Patient verbalized understanding of instructions. Jake Edwards PharmD, BCPS Primary Care Clinical Pharmacist Time spent: 25 mins documented in this encounter [facility] 12-12-2024 Note HNO ID: [id number] Author: JAKE EDWARDS RPh Service: ? Author Type: Pharmacist Type: Progress Notes Filed: 12/12/2024 16:40 Note Text: Primary Care Pharmacy Visit CC (Reason for Consult): Diabetes (E11.69, Z79.4) Type 2 diabetes mellitus with other specified complication, with long-term current use of insulin (HCC) (primary encounter diagnosis) Goal: A1c < 7% Last Collaborating Provider Visit: 07/15/24 Wendy Forte is a 69 year old female presenting for follow up visit telephone call. Patient consents to pharmacy collaborative practice agreement. Interim Events: 09/28/23: treated for UTI and overactive bladder 11/11: Referred to PharmD for DM mngt through panel mngt review 11/24: Started PAP application for ozempic. Med review due at follow up visit. 12/22: Basaglar increased; Ozempic PAP application still pending 12/30: pt advised to HOLD potassium and get f/up labs in 2 weeks 01/24: mealtime insulin added with lunch 03/23: no med changes made since pt in [place] 06/13: Ozempic started, insulin decreased 10/03: pt reported not tolerating Ozempic so had stopped; pt agreeable to retrying at a lower dose; SMBGs did not align with A1c so more frequent SMBG requested 11/14: pt had reported ongoing acute illness, had been off Ozempic; Ozempic restarted HPI: Patient is feeling better. Acute illness is resolved. Did not retry the Ozempic yet, wanted to have today's visit first to see how her sugars are to determine how to adjust insulin doses if needed. No stomach issues. Still gets occasional urinary urgency - comes and goes. Plans to discuss with PCP. Current DM Medications: Metformin ER 500mg tabs - 1000mg BID Semaglutide (Ozempic) 0.25mg weekly (has not yet restarted) Insulin glargine (Basaglar) 40 units at bedtime Insulin lispro (Humalog) 6-10 units TIDAC if pre-meal BG >150 (taking 10 units if pre-meal reading is <150 mg/dL; taking usually 3-4x/week) SMBGS (Fingersticks) Date Fasting AM 2 hr PP Before Lunch 2 hr PP Before Dinner 2 hr PP Bedtime 12/12 139 128 12/11 132 142 122 12/10 139 124 137 12/09 237 232 189 12/08 167 155 211 12/07 192 189 173 12/06 201 188 195 12/05 125 130 156 12/04 131 149 113 (shaky) 12/03 151 105 (shaky) 116 AVG 161 154 157 Preventative Medications: On VICTOR MANUEL/ARB: No On Statin: Yes ROS: Patient denies CP, CRUZ, blurred vision, dizziness or lightheadedness. Still has occasional SOB but believes it is remnant of her recent pneumonia. Patient denies symptoms of hypoglycemia (sweating, anxiety, palpitations, hunger, and tremor) Patient denies symptoms of hyperglycemia (polyuria, polydipsia, polyphagia) Patient denies potential medication adverse effects DIET/EXERCISE/SOCIAL Hx: Snacking on nuts and low calorie foods; grapes, string cheese; wheat thin crackers Breakfast: eats very light lunch MEDICATIONS: Pill bottles are not present. Adherence: denies missed doses. Pharmacy: [facility] [address] [place] [id number] - [address] - [phone] Rx coverage: Payor: MEDICARE / Plan: MEDICARE A AND B / Product Type: Medicare / Medications affordable? Yes Diabetes Supplies: Yes Organization system: ACTIVE PROBLEM LIST Htn (Hypertension), Benign Hyperlipidemia Type II Diabetes Mellitus, Uncontrolled Urinary Frequency Panic Disorder Without Agoraphobia Gerd (Gastroesophageal Reflux Disease) Heart Palpitations Obesity, Morbid, Bmi 40.0-49.9 ([facility]) Type 2 Diabetes Mellitus With Hyperglycemia, Without Long-Term Current Use of Insulin ([facility]) Paf (Paroxysmal Atrial Fibrillation) ([facility]) Snf Current Use of Anticoagulant Recurrent Major Depressive Disorder, in Full Remission PAST MEDICAL HISTORY Diagnosis Date Adjustment disorder with depressed mood Bladder wall thickening Diverticulitis 2022 Mild Hyperlipidemia 06/13/2009 Mixed stress and urge incontinence Mixed stress and urge incontinence OAB (overactive bladder) Obesity, morbid, BMI 40.0-49.9 ([facility]) Other and unspecified hyperlipidemia Type II or unspecified type diabetes mellitus without mention of complication, not stated as uncontrolled Unspecified essential hypertension Urinary frequency Past medical history reviewed. ALLERGIES Allergen Reactions Sulfa (Sulfonamide * Rash BLISTERS Medication List Medication Directions Comments Action/Plan Biotin 10,000 mcg cap Take 10,000 mcg by mouth once daily. With Keratin 100 MG blood sugar diagnostic (FREESTYLE TEST) test strip Check 4 time daily as directed. DX E11.65, Insulin: Yes clopidogrel (PLAVIX) 75 mg tablet Take 1 tablet by mouth once daily. COMPOUNDED PRESCRIPTION Diabetic shoes with insoles. DX E11.65, E11,49 COMPOUNDED PRESCRIPTION Hinged knee brace for left knee--Don Janine OA Reaction Web Knee brace. Dx Knee pain and decreased mobility secondary to degenerative arthritis 715.96 Patient not taking: Reported on 10/06/2022 COMPOUNDED PRESCRIPTION ascensia lancets estradiol (ESTR (more content not included)... [facility] 12-12-2024 Note HNO ID: [id number] Author: ?, ?, ? Service: ? Author Type: ? Type: Progress Notes Filed: 01/09/2025 03:02 Note Text: Patient has an upcoming appt with PCP-added to notes [facility] 12-12-2024 History of Present illness Narrative Patient has an upcoming appt with PCP-added to notes documented in this encounter [facility] 12-09-2024 Note Patient Outreach ( WSTR) CLEMENTWENDY Matt ([id number]) 1955 F Date Time Provider Department 12/09/24 ESTEPHANIA RODRIGUEZ During your visit today, we recorded the following information about you: Kaitlin Hunter 01/09/2025 3:02 AM Signed Patient has an upcoming appt with PCP-added to notes Allergies As of Date: 12/09/2024 Noted Allergy Reaction SULFA (SULFONAMIDE ANTIBIOTICS) 08/28/2006 2 - Rash Comments: BLISTERS Date Reviewed: 11/10/2024 Reviewed by: Glory Collazo LPN - Fully Assessed Reason for Visit: Outpatient Colonoscopy [482] Cmt: Patient is overdue for colorectal cancer screening since 11/01/2022. Patient will need consult with Erick Talbert CNP prior to colorectal cancer screening. Primary Visit Diagnosis:Screening for colorectal cancer [Z12.11, Z12.12] Prescriptions as of 01/09/2025 - insulin lispro (HUMALOG KWIKPEN INSULIN) 100 unit/mL Take 6 units before meals if pre-meal BG >150 mg/dL. Patient assistance medication - insulin glargine 100 unit/mL (3 mL) Inject 40 Units subcutaneously daily at bedtime. Patient assistance medication - clopidogrel (PLAVIX) 75 mg tablet Take 1 tablet by mouth once daily. - FLUoxetine (PROZAC) 40 mg capsule Take 1 capsule by mouth once daily. - IFEREX 150 150 mg iron capsule Take 1 capsule by mouth once daily. - metFORMIN ER (GLUCOPHAGE XR) 500 mg 24 hr tablet Take 2 tablets by mouth two times a day with meals. - metoprolol tartrate, short acting, (LOPRESSOR) 50 mg tablet Take 1 tablet by mouth two times a day. - rosuvastatin (CRESTOR) 5 mg tablet Take 1 tablet by mouth daily at bedtime. - warfarin (COUMADIN) 2.5 mg tablet Start with 2.5 mg daily except 1.25mg Thurs - semaglutide (OZEMPIC) 0.25 mg or 0.5 mg (2 mg/3 mL) pen Take 0.25mg weekly for 4 weeks then take 0.5mg weekly thereafter. Gets through [employer]. - L. acidophilus/Bifid. animalis (DAILY PROBIOTIC ORAL) Take 1 capsule by mouth once daily. - estradiol (ESTRACE) 0.01 % (0.1 mg/gram) vaginal cream Use 1 g vaginally two times a week. Apply before bed. Apply a pea-sized amount of cream to the vagina/vulva. - Biotin 10,000 mcg cap Take 10,000 mcg by mouth once daily. With Keratin 100 MG - blood sugar diagnostic (FREESTYLE TEST) test strip Check 4 time daily as directed. DX E11.65, Insulin: Yes - Lancets lancets Test blood sugar(s) 4 times daily as directed. Dx: diabetes E11.65. Insulin: Yes - insulin needles, DISPOSABLE, (PEN NEEDLE) 31 gauge x 5/16 ndle Use one needle per dose. One per day. - COMPOUNDED PRESCRIPTION Diabetic shoes with insoles. DX E11.65, E11,49 - COMPOUNDED PRESCRIPTION Hinged knee brace for left knee--Don Janine OA Reaction Web Knee brace. Dx Knee pain and decreased mobility secondary to degenerative arthritis 715.96 - COMPOUNDED PRESCRIPTION ascensia lancets Meds Comments as of 02/21/2013: Problem List As Of Date 12/09/2024 Noted Resolved HTN (hypertension), benign [I10] Hyperlipidemia [E78.5] Type II diabetes mellitus, uncontrolled (HCC) [* URINARY FREQUENCY [R35.0] PANIC DISORDER WITHOUT AGORAPHOBIA [F41.0] 07/21/2008 GERD (gastroesophageal reflux disease) [K21.9] 04/05/2012 Heart palpitations [R00.2] 04/05/2012 Obesity, morbid, BMI 40.0-49.9 (HCC) [E66.01] Type 2 diabetes mellitus with hyperglycemia, wi*10/30/2014 PAF (paroxysmal atrial fibrillation) ([facility]) [I48*11/01/2021 half-way current use of anticoagulant [Z79.01] 06/21/2022 Recurrent major depressive disorder, in full re*05/18/2023 Encounter Status:Closed by JOHN REYES on 01/09/25 [facility] 12-05-2024 Telephone encounter Note [facility]tico[facility] Anticoagulation Episode Summary Anticoagulation Care Providers Provider Role Specialty Phone number Estephania Rodriguez MD Referring Internal Medicine [phone] Wendy Forte is a 69 year old year old female patient being evaluated today for a Telemanagement visit. Patient is currently on the following anticoagulant(s) Warfarin. Labs PT INR (no units) Date Value 07/10/2024 2.5 12/13/2021 2.2 11/01/2021 2.2 INR (no units) Date Value 12/03/2024 2.1 11/05/2024 3.4 09/24/2024 2.2 CrCl cannot be calculated (Unknown ideal weight.). 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: Anticoagulation Episode Summary Current INR goal: 2.0-3.0 Assessment: INR result of 2.1 is therapeutic Plan: Current Warfarin Dosing As of 12/05/2024 Full warfarin instructions: 1.25 mg every Alma; 2.5 mg all other days Left voice message Advised patient to continue current weekly dose as noted above Next INR check due on 01/09/2025 Patient instructed to call [facility] at [phone] with any questions or concerns. Jw Roberts RPh Clinical Pharmacist, Pharmacy Anticoagulation Clinic [facility] Pager: [phone] [facility] 12-05-2024 Miscellaneous Notes [facility]ticoagulation Clinic Anticoagulation Episode Summary Anticoagulation Care Providers Provider Role Specialty Phone number Estephania Rodriguez MD Referring Internal Medicine [phone] Wendy Forte is a 69 year old year old female patient being evaluated today for a Telemanagement visit. Patient is currently on the following anticoagulant(s) Warfarin. Labs PT INR (no units) Date Value 07/10/2024 2.5 12/13/2021 2.2 11/01/2021 2.2 INR (no units) Date Value 12/03/2024 2.1 11/05/2024 3.4 09/24/2024 2.2 CrCl cannot be calculated (Unknown ideal weight.). 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: Anticoagulation Episode Summary Current INR goal: 2.0-3.0 Assessment: INR result of 2.1 is therapeutic Plan: Current Warfarin Dosing As of 12/05/2024 Full warfarin instructions: 1.25 mg every Alma; 2.5 mg all other days Left voice message Advised patient to continue current weekly dose as noted above Next INR check due on 01/09/2025 Patient instructed to call [facility] at [phone] with any questions or concerns. Jw Roberts RPh Clinical Pharmacist, Pharmacy Anticoagulation Clinic [facility] Pager: [phone] documented in this encounter [facility] 11-21-2024 Telephone encounter Note Called patient and informed her that [employer] PAP was approved for 2024, she appreciated the call. She states she is still having a cough, is considering going to urgent care to get a cough medicine. I suggested trying OTC dextromethorphan (sugar-free) and drinking lot liquids/tea to see if that helps. If no improvement, suggested calling PCP office to see if can have a script for cough medicine. She also states that her sugars have been in the 120s and she feels shaky. Did NOT yet start Ozempic. Is taking Basaglar 40 units nightly. Hasn't been taking Humalog much since recovering from illness. Advised to temporarily reduce Basaglar to 38 units for a few days, and if still feeling shaky, then reduce further to 36 units. If no improvement, advised she reach out to me. She expressed understanding and had no further questions. Jake Edwards, PharmD, [facility] Primary Care Clinical Pharmacist [facility] Work Phone: 11-21-2024 Miscellaneous Notes Called patient and informed her that [employer] PAP was approved for 2024, she appreciated the call. She states she is still having a cough, is considering going to urgent care to get a cough medicine. I suggested trying OTC dextromethorphan (sugar-free) and drinking lot liquids/tea to see if that helps. If no improvement, suggested calling PCP office to see if can have a script for cough medicine. She also states that her sugars have been in the 120s and she feels shaky. Did NOT yet start Ozempic. Is taking Basaglar 40 units nightly. Hasn't been taking Humalog much since recovering from illness. Advised to temporarily reduce Basaglar to 38 units for a few days, and if still feeling shaky, then reduce further to 36 units. If no improvement, advised she reach out to me. She expressed understanding and had no further questions. Jake Edwards, Rusty, [facility] Primary Care Clinical Pharmacist documented in this encounter [facility] 11-16-2024 Telephone encounter Note Patient has been approved with [employer] for medication(s) Basaglar Kwikpen units-100 through 09/06/2025. Patient [employer] ID is : [id number] Patient has been approved with [employer] for medication(s) Humalog Kwikpen units-100 through 09/06/2025. Patient [employer] ID is : [id number] Approval letter for patient has been scanned into [employer] along with completed application. Patient Assistance Team will alert pharmacist of patient approved status. Janiya Osborn CPhT E-Mail : [email or web address] Phone : [phone] Fax : [phone] [facility] 11-16-2024 Miscellaneous Notes Patient has been approved with [employer] for medication(s) Basaglar Kwikpen units-100 through 09/06/2025. Patient [employer] ID is : [id number] Patient has been approved with [employer] for medication(s) Humalog Kwikpen units-100 through 09/06/2025. Patient [employer] ID is : [id number] Approval letter for patient has been scanned into [employer] along with completed application. Patient Assistance Team will alert pharmacist of patient approved status. Janiya Osborn CPhT E-Mail : Phone : [phone] Fax : [phone] Application faxed to [employer] [facility] for medications Basaglar & Humalog units-100 Kwikpens on 11/15/2024. Patient Assistance Team will follow up via phone call to collision worker if in 7-10 business days no faxed response is recieved. Janiya Osborn CPhT E-Mail : [email or web address] Phone : [phone] Fax : [phone] Message left for pt to return call to a nurse. She also needs her appt with pcp or [facility] reschedule to review Diabetes. Printed for pt to complete her part. Signed and faxed back. Printed for pcp too sign. Once signed by provider please fax forms back to Patient Assistance Team ATTN : Kali at [phone]. Provider portion of patient assistance [employer] applications (Basaglar & Humalog Kwikpens) have been scanned to patient documents. Patient Assistance Team is asking that forms be printed at office for Dr Estephania Rodriguez to review and sign. Thank You! Janiya Osborn [facility] E-Mail : [email or web address] Phone : [phone] Fax : [phone] documented in this encounter [facility] 11-15-2024 Telephone encounter Note Application faxed to [facility] for medications Basaglar & Humalog units-100 Kwikpens on 11/15/2024. Patient Assistance Team will follow up via phone call to collision worker if in 7-10 business days no faxed response is recieved. Janiya Osborn CPhT E-Mail : [email or web address] Phone : [phone] Fax : [phone] [facility] 11-14-2024 Telephone encounter Note During PharmD visit today, patient informed me that she had to cancel her liver ultrasound because of the flu. She is planning to reschedule it and have done in the next couple of weeks. She wanted me to inform PCP as an FYI. Forwarding to Dr. Rodriguez as FYI only. Jake Edwards PharmD, [facility] Primary Care Clinical Pharmacist [facility] Work Phone: 11-14-2024 Miscellaneous Notes During PharmD visit today, patient informed me that she had to cancel her liver ultrasound because of the flu. She is planning to reschedule it and have done in the next couple of weeks. She wanted me to inform PCP as an FYI. Forwarding to Dr. Rodriguez as FYI only. Jake Edwards PharmD, [facility] Primary Care Clinical Pharmacist documented in this encounter [facility] 11-14-2024 History of Present illness Narrative Primary Care Pharmacy Visit CC (Reason for Consult): Diabetes (E11.69, Z79.4) Type 2 diabetes mellitus with other specified complication, with long-term current use of insulin (HCC) (primary encounter diagnosis) Goal: A1c < 7% Last Collaborating Provider Visit: 07/25/24 Wendy Forte is a 69 year old female presenting for follow up visit telephone call. Patient consents to pharmacy collaborative practice agreement. Interim Events: 09/28: treated for UTI and overactive bladder 11/11: Referred to PharmD for DM mngt through panel mngt review 11/24: Started PAP application for ozempic. Med review due at follow up visit. 12/22: Basaglar increased; Ozempic PAP application still pending 12/30: pt advised to HOLD potassium and get f/up labs in 2 weeks 01/24: mealtime insulin added with lunch 03/23: no med changes made since pt in [place] 06/13: Ozempic started, insulin decreased 10/03: pt reported not tolerating Ozempic so had stopped; pt agreeable to retrying at a lower dose; SMBGs did not align with A1c so more frequent SMBG requested HPI: States she has been sick off and on for a few weeks. Flu, head cold, pneumonia, etc. Says sugars are scattered all over the place. Feeling better today, breathing better, still coughing up a bunch of junk. Still on 2 antibiotics. Was planning to have liver US at [facility], she had to cancel it because was sick with a flu. She wants me to inform PCP as an FYI. Planning to schedule an appt next week or so. Sometimes will have lower numbers at night, in 90s-130s. Wondering if should still take 40 units of Basaglar when HS readings are lower. Did buy a new glucometer to make sure readings are accurate. Current DM Medications: Metformin ER 500mg tabs - 1000mg BID Semaglutide (Ozempic) 0.25mg weekly (stopped Ozempic when she had the flu ~1 month ago; plans to try restarting again once feeling better) Insulin glargine (Basaglar) 36 units at bedtime (taking 40 units) Insulin lispro (Humalog) 6-10 units TIDAC if pre-meal BG >150 (taking 10 units TIDAC) SMBGS (Fingersticks) Date Fasting AM 2 hr PP Before Lunch 2 hr PP Before Dinner 2 hr PP Bedtime 11/14 114 (shaky) 138 3/9 166 140 126 3/8 165 207 248 37 148 134 159 3/6 206 210 233 11/09 132 148 215 11/08 193 210 291 11/07 152 165 195 11/06 155 87 105 116 AVG 159 160 196 Feels shaky <120 mg/dL, sometimes <130 mg/dL; usually will feel shaky mid-afternoon Preventative Medications: On VICTOR MANUEL/ARB: No On Statin: Yes ROS: Patient denies CP, SOB, CRUZ, blurred vision, dizziness or lightheadedness Patient denies symptoms of hypoglycemia (sweating, anxiety, palpitations, hunger, and tremor) Patient denies symptoms of hyperglycemia (polyuria, polydipsia, polyphagia) Patient denies potential medication adverse effects DIET/EXERCISE/SOCIAL Hx: Eating less with recent illnesses MEDICATIONS: Pill bottles are not present. Adherence: denies missed doses. Pharmacy: [facility] [address] [place] [id number] [facility] [phone] Rx coverage: Payor: MEDICARE / Plan: MEDICARE A AND B / Product Type: Medicare / Medications affordable? Yes Diabetes Supplies: Yes Organization system: ACTIVE PROBLEM LIST Htn (Hypertension), Benign Hyperlipidemia Type II Diabetes Mellitus, Uncontrolled Urinary Frequency Panic Disorder Without Agoraphobia Gerd (Gastroesophageal Reflux Disease) Heart Palpitations Obesity, Morbid, Bmi 40.0-49.9 (Formerly [facility]) Type 2 Diabetes Mellitus With Hyperglycemia, Without Long-Term Current Use of Insulin ([facility]) Paf (Paroxysmal Atrial Fibrillation) (Formerly [facility]) Snf Current Use of Anticoagulant Recurrent Major Depressive Disorder, in Full Remission ([facility]ly [facility]) PAST MEDICAL HISTORY Diagnosis Date Adjustment disorder with depressed mood Bladder wall thickening Diverticulitis 2022 Mild Hyperlipidemia 06/13/2009 Mixed stress and urge incontinence Mixed stress and urge incontinence OAB (overactive bladder) Obesity, morbid, BMI 40.0-49.9 ([facility]) Other and unspecified hyperlipidemia Type II or unspecified type diabetes mellitus without mention of complication, not stated as uncontrolled Unspecified essential hypertension Urinary frequency Past medical history reviewed. ALLERGIES Allergen Reactions Sulfa (Sulfonamide * Rash BLISTERS Medication List Medication Directions Comments Action/Plan Biotin 10,000 mcg cap Take 10,000 mcg by mouth once daily. With Keratin 100 MG blood sugar diagnostic (FREESTYLE TEST) test strip Check 4 time daily as directed. DX E11.65, Insulin: Yes Patient taking differently: Check 4 time daily as directed. DX E11.65, Insulin: Yes Checks sugars about three times daily per patient. clopidogrel (PLAVIX) 75 mg tablet Take 1 tablet by mouth once daily. COMPOUNDED PRESCRIPTION Diabetic shoes with insoles. DX E11.65, E11,49 COMPOUNDED PRESCRIPTION Hinged knee brace for left knee--Don Janine OA Reaction Web Knee brace. Dx Knee pain and decreased mobility secondary to degenerative arthritis 715.96 Patient not taking: Reported on 10/06/2022 COMPOUNDED PRESCRIPTION ascensia lancets estradiol (ESTRACE) 0.01 % (0.1 mg/gram) vaginal cream Use 1 g vaginally two times a week. Apply before bed. Apply a pea-sized amount of cream to the vagina/vulva. Patient taking differently: Use 1 g vaginally two times a week. Apply before bed. Apply a pea-sized amount of cream to the vagina/vulva two times a week as needed. FLUoxetine (PROZAC) 40 mg capsule Take 1 capsule by mouth once daily. IFEREX 150 150 mg iron capsule Take 1 capsule by mouth once daily. insulin glargine 100 unit/mL (3 mL) Inject 36 Units subcutaneously daily at bedtime. Patient assistance medication insulin lispro (HUMALOG KWIKPEN INSULIN) 100 unit/mL Take 6-10 units before meals if pre-meal BG >150 mg/dL. Patient assistance medication insulin needles, DISPOSABLE, (PEN NEEDLE) 31 gauge x 5/16 ndle Use one needle per dose. One per day. L. acidophilus/Bifid. animalis (DAILY PROBIOTIC ORAL) Take 1 capsule by mouth once daily. Lancets lancets Test blood sugar(s) 4 times daily as directed. Dx: diabetes E11.65. Insulin: Yes metFORMIN ER (GLUCOPHAGE XR) 500 mg 24 hr tablet Take 2 tablets by mouth two times a day with meals. metoprolol tartrate, short acting, (LOPRESSOR) 50 mg tablet Take 1 tablet by mouth two times a day. rosuvastatin (CRESTOR) 5 mg tablet Take 1 tablet by mouth daily at bedtime. semaglutide (OZEMPIC) 0.25 mg or 0.5 mg (2 mg/3 mL) pen Take 0.25mg weekly for 4 weeks then take 0.5mg weekly thereafter. Gets through [employer]. warfarin (COUMADIN) 2.5 mg tablet Start with 2.5 mg daily except 1.25mg Thurs Exam: There were no vitals taken for this visit. Last 3 Encounter BP Readings: Date: BP: 07/25/2024 114/77 09/28/2023 150/86 09/09/2023 148/82 Wt: 111.9 kg (246 lb 11.1 oz) BMI: 41.05 kg/(m^2) LABS: Reviewed Lab Results Component Value Date HBA1C 9.8 09/24/2024 HBA1C 7.8 06/10/2024 HBA1C 9.6 09/09/2023 HBA1C 8.2 09/20/2021 HBA1C 11.0 05/29/2021 HBA1C 10.3 11/12/2020 CMP: Glucose 171 09/24/2024 BUN 22 09/24/2024 Creatinine 0.77 09/24/2024 Sodium 138 09/24/2024 Potassium 4.3 09/24/2024 Chloride 102 09/24/2024 CO2 23 09/24/2024 Protein, Total 8.2 09/24/2024 Albumin 3.9 09/24/2024 Calcium 9.6 09/24/2024 Alkaline Phosphatase 141 09/24/2024 Bilirubin, Total 0.5 09/24/2024 AST 35 09/24/2024 ALT 27 08/19/2024 eGFR 84 Lab Results Component Value Date CHOL 176 08/19/2024 CHOL 148 05/29/2021 LDL 100 08/19/2024 LDL 69 05/29/2021 HDL 40 08/19/2024 HDL 34 05/29/2021 TG 180 08/19/2024 TG 225 05/29/2021 The 10-year ASCVD risk score (Zeinab MADERA, et al., 2019) is: 35.4% Values used to calculate the score: Age: 69 years Sex: Female Is Non- : No Diabetic: Yes Tobacco smoker: No Systolic Blood Pressure: 172 mmHg Is BP treated: Yes HDL Cholesterol: 40 mg/dL Total Cholesterol: 176 mg/dL Albumin/Creat Ratio (mg/g) Date Value 08/19/2024 254 (H) PHARMACOTHERAPY ASSESSMENT/PLAN: 1. Type 2 diabetes mellitus with other specified complication, with long-term current use of insulin (HCC) - ICD9: 250.80, V58.67, ICD10: E11.69, Z79.4 A1c goal < 7%; uncontrolled (last A1c 9.8%); SMBGs elevated though improved; no Bgs <90 but having sx if <130 mg/dL; pt had stopped Ozempic due to acute illness, planning to restart soon; no other med changes today, will f/up in 1 mo RESTART Ozempic (start with 1/2 the # of clicks to the 0.25mg dose, then gradually increase weekly as tolerated). Goal is to get up to 0.5mg weekly Continue other medications PharmD will f/up with PAP speech therapist technician regarding Chriss[employer] 2024 renewal (Household 1 (lives with daughter, Loi, 3 kids), household of 6; doesn't file taxes; Address is [address] [place] [address]; 2023 income: $29,168.40) Health Maintenance - Diabetes Topic Date Due Diabetic Foot Exam 06/06/2023 Dilated Retinal Exam 08/28/2024 Follow-up Patient is scheduled to see PCP team on 01/09. Patient to have f/up with PharmD team on 12/12. Patient verbalized understanding of instructions. Jake Edwards PharmD, BCPS Primary Care Clinical Pharmacist Time spent: 27 mins documented in this encounter [facility] 11-14-2024 Note HNO ID: [id number] Author: JAKE EDWARDS RPh Service: ? Author Type: Pharmacist Type: Progress Notes Filed: 11/14/2024 16:45 Note Text: Primary Care Pharmacy Visit CC (Reason for Consult): Diabetes (E11.69, Z79.4) Type 2 diabetes mellitus with other specified complication, with long-term current use of insulin (HCC) (primary encounter diagnosis) Goal: A1c < 7% Last Collaborating Provider Visit: 07/25/24 Wendy Forte is a 69 year old female presenting for follow up visit telephone call. Patient consents to pharmacy collaborative practice agreement. Interim Events: 09/28: treated for UTI and overactive bladder 11/11: Referred to PharmD for DM mngt through panel mngt review 11/24: Started PAP application for ozempic. Med review due at follow up visit. 12/22: Basaglar increased; Ozempic PAP application still pending 12/30: pt advised to HOLD potassium and get f/up labs in 2 weeks 01/24: mealtime insulin added with lunch 03/23: no med changes made since pt in [place] 06/13: Ozempic started, insulin decreased 10/03: pt reported not tolerating Ozempic so had stopped; pt agreeable to retrying at a lower dose; SMBGs did not align with A1c so more frequent SMBG requested HPI: States she has been sick off and on for a few weeks. Flu, head cold, pneumonia, etc. Says sugars are scattered all over the place. Feeling better today, breathing better, still coughing up a bunch of junk. Still on 2 antibiotics. Was planning to have liver US at [facility], she had to cancel it because was sick with a flu. She wants me to inform PCP as an FYI. Planning to schedule an appt next week or so. Sometimes will have lower numbers at night, in 90s-130s. Wondering if should still take 40 units of Basaglar when HS readings are lower. Did buy a new glucometer to make sure readings are accurate. Current DM Medications: Metformin ER 500mg tabs - 1000mg BID Semaglutide (Ozempic) 0.25mg weekly (stopped Ozempic when she had the flu ~1 month ago; plans to try restarting again once feeling better) Insulin glargine (Basaglar) 36 units at bedtime (taking 40 units) Insulin lispro (Humalog) 6-10 units TIDAC if pre-meal BG >150 (taking 10 units TIDAC) SMBGS (Fingersticks) Date Fasting AM 2 hr PP Before Lunch 2 hr PP Before Dinner 2 hr PP Bedtime 11/14 114 (shamarjorie) 138 3/9 166 140 126 3/8 165 207 248 /7 148 134 159 3/6 206 210 233 3/5 132 148 215 /4 193 210 291 11/07 152 165 195 3/2 155 87 105 116 AVG 159 160 196 Feels shaky <120 mg/dL, sometimes <130 mg/dL; usually will feel shaky mid-afternoon Preventative Medications: On VICTOR MANUEL/ARB: No On Statin: Yes ROS: Patient denies CP, SOB, CRUZ, blurred vision, dizziness or lightheadedness Patient denies symptoms of hypoglycemia (sweating, anxiety, palpitations, hunger, and tremor) Patient denies symptoms of hyperglycemia (polyuria, polydipsia, polyphagia) Patient denies potential medication adverse effects DIET/EXERCISE/SOCIAL Hx: Eating less with recent illnesses MEDICATIONS: Pill bottles are not present. Adherence: denies missed doses. Pharmacy: [facility] [address] [place] [id number] [address] [facility] [phone] Rx coverage: Payor: MEDICARE / Plan: MEDICARE A AND B / Product Type: Medicare / Medications affordable? 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 Recurrent Major Depressive Disorder, in Full Remission ([facility]) PAST MEDICAL HISTORY Diagnosis Date Adjustment disorder with depressed mood Bladder wall thickening Diverticulitis 2022 Mild Hyperlipidemia 06/13/2009 Mixed stress and urge incontinence Mixed stress and urge incontinence OAB (overactive bladder) Obesity, morbid, BMI 40.0-49.9 ([facility]) Other and unspecified hyperlipidemia Type II or unspecified type diabetes mellitus without mention of complication, not stated as uncontrolled Unspecified essential hypertension Urinary frequency Past medical history reviewed. ALLERGIES Allergen Reactions Sulfa (Sulfonamide * Rash BLISTERS Medication List Medication Directions Comments Action/Plan Biotin 10,000 mcg cap Take 10,000 mcg by mouth once daily. With Keratin 100 MG blood sugar diagnostic (FREESTYLE TEST) test strip Check 4 time daily as directed. DX E11.65, Insulin: Yes Patient taking differently: Check 4 time daily as directed. DX E11.65, Insulin: Yes Checks sugars about three times daily per patient. clopidogrel (PLAVIX) 75 mg tablet Take 1 tablet by mouth once daily. COMPOUNDED PRESCRIPTION Jennifer (more content not included)... [facility] 11-10-2024 History of Present illness Narrative Radiology Service Progress Note PATIENT NAME: Wendy Forte DATE OF SERVICE: November 10, 2024 TIME: 3:02 PM PATIENT IDENTITY VERIFICATION COMPLETED USING TWO (2) IDENTIFIERS: Name and Date of confirmed by patient verbally. FALL SCREENING: Has the patient had 2 falls in the last year or 1 fall with injury or currently using an Ambulatory Assistive Device (Walker, Cane, Wheelchair, Crutches, etc.)? No PATIENT GENDER DATA: Assigned female at . status: : No status: NO. PATIENT RELEVANT IMPLANT DATA REVIEWED: Not Applicable PATIENT PRESENTS WITH AN IMPLANTABLE OR ATTACHED PET CAREGIVER: No RADIOLOGY DEPARTMENT: General X-ray: Exam(s) Completed: Chest X-Ray PERIPHERAL IV DATA: Not applicable SIGNED BY: Vangie Mojica November 10, 2024 3:02 PM documented in this encounter [facility] 11-10-2024 Note HNO ID: [id number] Author: LAZARA AWAN Tech Service: ? Author Type: Technologist Type: Progress Notes Filed: 11/10/2024 15:09 Note Text: Radiology Service Progress Note PATIENT NAME: Wendy Forte DATE OF SERVICE: November 10, 2024 TIME: 3:02 PM PATIENT IDENTITY VERIFICATION COMPLETED USING TWO (2) IDENTIFIERS: Name and Date of confirmed by patient verbally. FALL SCREENING: Has the patient had 2 falls in the last year or 1 fall with injury or currently using an Ambulatory Assistive Device (Walker, Cane, Wheelchair, Crutches, etc.)? No PATIENT GENDER DATA: Assigned female at . status: : No status: NO. PATIENT RELEVANT IMPLANT DATA REVIEWED: Not Applicable PATIENT PRESENTS WITH AN IMPLANTABLE OR ATTACHED PET CAREGIVER: No RADIOLOGY DEPARTMENT: General X-ray: Exam(s) Completed: Chest X-Ray PERIPHERAL IV DATA: Not applicable SIGNED BY: Vangie Mojica November 10, 2024 3:02 PM [facility] 11-10-2024 Note HNO ID: [id number] Author: BRAYDEN CHAPARRO APRN.CENTRAL OFFICE INSTALLER Service: ? Author Type: Nurse Practitioner Type: Progress Notes Filed: 11/10/2024 15:35 Note Text: CC: Patient presents with: Cough: Chest congestion, wheeze, SOB, headache, lower R back and front R side pain with cough, head congestion, x 1 week HPI: Wendy Forte is a 69 year old female who presents to the office with complaint of chest congestion, head congestion, and cough, productive for a week. Symptoms are worsening Associated symptoms includes wheezing and dyspnea. Denies nausea, vomiting , and diarrhea. Treatments tried include nothing so far. with no relief of symptoms. Sick contacts: unknown. History of asthma, frequent episodes of bronchitis, chronic bronchitis, bronchiectasis or COPD: No Smoker: No Seasonal/environmental allergies: No The ROS is otherwise negative. The patient's pmh, medications, allergies, and past visits are reviewed. PHYSICAL EXAM: BP 172/74 Pulse 73 Temp 36.9 ?C (98.5 ?F) Resp 24 Wt 110 kg (242 lb 8.1 oz) SpO2 97% BMI 40.36 kg/m? General appearance: alert, cooperative, pleasant, in no acute distress Head: Normocephalic Eyes: EOM's intact, conjunctiva pink and moist, no icterus, sclera white, non-injected Ears: Right ear: External ear/canal- Normal, TM - clear with good landmarks. Left ear: External ear/canal- Normal, TM - clear with good landmarks Oropharynx:moist without lesions, No erythema, exudates or tonsillar hypertrophy. Heart: Negative. RRR without obvious murmur, gallop, or rubs. No ectopy. Lungs: wheezing diffusely PAST MEDICAL HISTORY Diagnosis Date Adjustment disorder with depressed mood Bladder wall thickening Diverticulitis 2022 Mild Hyperlipidemia 06/13/2009 Mixed stress and urge incontinence Mixed stress and urge incontinence OAB (overactive bladder) Obesity, morbid, BMI 40.0-49.9 (HCC) Other and unspecified hyperlipidemia Type II or unspecified type diabetes mellitus without mention of complication, not stated as uncontrolled Unspecified essential hypertension Urinary frequency PAST SURGICAL HISTORY Procedure Laterality Date BMD BONE DENSITY 12/23/2002 CHOLECYSTECTOMY 03/1979 Open cholecystectomy ALLERGIES Sulfa (Sulfonamide Antibiotics) MEDICATIONS insulin lispro (HUMALOG KWIKPEN INSULIN) 100 unit/mL Take 6-10 units before meals if pre-meal BG >150 mg/dL. Patient assistance medication clopidogrel (PLAVIX) 75 mg tablet Take 1 tablet by mouth once daily. FLUoxetine (PROZAC) 40 mg capsule Take 1 capsule by mouth once daily. IFEREX 150 150 mg iron capsule Take 1 capsule by mouth once daily. metFORMIN ER (GLUCOPHAGE XR) 500 mg 24 hr tablet Take 2 tablets by mouth two times a day with meals. metoprolol tartrate, short acting, (LOPRESSOR) 50 mg tablet Take 1 tablet by mouth two times a day. rosuvastatin (CRESTOR) 5 mg tablet Take 1 tablet by mouth daily at bedtime. warfarin (COUMADIN) 2.5 mg tablet Start with 2.5 mg daily except 1.25mg Thurs semaglutide (OZEMPIC) 0.25 mg or 0.5 mg (2 mg/3 mL) pen Take 0.25mg weekly for 4 weeks then take 0.5mg weekly thereafter. Gets through [employer]. insulin glargine 100 unit/mL (3 mL) Inject 36 Units subcutaneously daily at bedtime. Patient assistance medication L. acidophilus/Bifid. animalis (DAILY PROBIOTIC ORAL) Take 1 capsule by mouth once daily. estradiol (ESTRACE) 0.01 % (0.1 mg/gram) vaginal cream Use 1 g vaginally two times a week. Apply before bed. Apply a pea-sized amount of cream to the vagina/vulva. Biotin 10,000 mcg cap Take 10,000 mcg by mouth once daily. With Keratin 100 MG blood sugar diagnostic (FREESTYLE TEST) test strip Check 4 time daily as directed. DX E11.65, Insulin: Yes Lancets lancets Test blood sugar(s) 4 times daily as directed. Dx: diabetes E11.65. Insulin: Yes insulin needles, DISPOSABLE, (PEN NEEDLE) 31 gauge x 5/16 ndle Use one needle per dose. One per day. COMPOUNDED PRESCRIPTION Diabetic shoes with insoles. DX E11.65, E11,49 COMPOUNDED PRESCRIPTION Hinged knee brace for left knee--Don Janine OA Reaction Web Knee brace. Dx Knee pain and decreased mobility secondary to degenerative arthritis 715.96 (Patient not taking: Reported on 10/06/2022) COMPOUNDED PRESCRIPTION ascensia lancets FAMILY HISTORY Problem Relation Age of Onset Diabetes Brother HEART ATTACK,KIDNEY FAILURE Diabetes Father KIDNEY FAILURE Cancer Maternal Grandmother LIVER CANCER Heart Mother QUADRUPLE BIPASS Diabetes Sister Cancer Sister female cancer--told not ovarian cancer; had oophorectomy and having chemo Social History Tobacco Use Smoking status: Former Current packs/day: 0.00 Average packs/day: 0.5 packs/day for 30.0 years (15.0 ttl pk-yrs) Types: Cigarettes Start date: 09/07/1976 Quit date: 09/07/2006 Years since quittin.1 Smokeless tobacco: Never Vaping Use Vaping status: Never Used Substance Use Topics Alcohol use: N (more content not included)... [facility] 11-10-2024 History of Present illness Narrative CC: Patient presents with: Cough: Chest congestion, wheeze, SOB, headache, lower R back and front R side pain with cough, head congestion, x 1 week HPI: Wendy Forte is a 69 year old female who presents to the office with complaint of chest congestion, head congestion, and cough, productive for a week. Symptoms are worsening Associated symptoms includes wheezing and dyspnea. Denies nausea, vomiting , and diarrhea. Treatments tried include nothing so far. with no relief of symptoms. Sick contacts: unknown. History of asthma, frequent episodes of bronchitis, chronic bronchitis, bronchiectasis or COPD: No Smoker: No Seasonal/environmental allergies: No The ROS is otherwise negative. The patient's pmh, medications, allergies, and past visits are reviewed. PHYSICAL EXAM: BP 172/74 Pulse 73 Temp 36.9 C (98.5 F) Resp 24 Wt 110 kg (242 lb 8.1 oz) SpO2 97% BMI 40.36 kg/m General appearance: alert, cooperative, pleasant, in no acute distress Head: Normocephalic Eyes: EOM's intact, conjunctiva pink and moist, no icterus, sclera white, non-injected Ears: Right ear: External ear/canal- Normal, TM - clear with good landmarks. Left ear: External ear/canal- Normal, TM - clear with good landmarks Oropharynx:moist without lesions, No erythema, exudates or tonsillar hypertrophy. Heart: Negative. RRR without obvious murmur, gallop, or rubs. No ectopy. Lungs: wheezing diffusely PAST MEDICAL HISTORY Diagnosis Date Adjustment disorder with depressed mood Bladder wall thickening Diverticulitis 2022 Mild Hyperlipidemia 06/13/2009 Mixed stress and urge incontinence Mixed stress and urge incontinence OAB (overactive bladder) Obesity, morbid, BMI 40.0-49.9 (HCC) Other and unspecified hyperlipidemia Type II or unspecified type diabetes mellitus without mention of complication, not stated as uncontrolled Unspecified essential hypertension Urinary frequency PAST SURGICAL HISTORY Procedure Laterality Date BMD BONE DENSITY 12/23/2002 CHOLECYSTECTOMY 03/1979 Open cholecystectomy ALLERGIES Sulfa (Sulfonamide Antibiotics) MEDICATIONS insulin lispro (HUMALOG KWIKPEN INSULIN) 100 unit/mL Take 6-10 units before meals if pre-meal BG >150 mg/dL. Patient assistance medication clopidogrel (PLAVIX) 75 mg tablet Take 1 tablet by mouth once daily. FLUoxetine (PROZAC) 40 mg capsule Take 1 capsule by mouth once daily. IFEREX 150 150 mg iron capsule Take 1 capsule by mouth once daily. metFORMIN ER (GLUCOPHAGE XR) 500 mg 24 hr tablet Take 2 tablets by mouth two times a day with meals. metoprolol tartrate, short acting, (LOPRESSOR) 50 mg tablet Take 1 tablet by mouth two times a day. rosuvastatin (CRESTOR) 5 mg tablet Take 1 tablet by mouth daily at bedtime. warfarin (COUMADIN) 2.5 mg tablet Start with 2.5 mg daily except 1.25mg Thurs semaglutide (OZEMPIC) 0.25 mg or 0.5 mg (2 mg/3 mL) pen Take 0.25mg weekly for 4 weeks then take 0.5mg weekly thereafter. Gets through [employer]. insulin glargine 100 unit/mL (3 mL) Inject 36 Units subcutaneously daily at bedtime. Patient assistance medication L. acidophilus/Bifid. animalis (DAILY PROBIOTIC ORAL) Take 1 capsule by mouth once daily. estradiol (ESTRACE) 0.01 % (0.1 mg/gram) vaginal cream Use 1 g vaginally two times a week. Apply before bed. Apply a pea-sized amount of cream to the vagina/vulva. Biotin 10,000 mcg cap Take 10,000 mcg by mouth once daily. With Keratin 100 MG blood sugar diagnostic (FREESTYLE TEST) test strip Check 4 time daily as directed. DX E11.65, Insulin: Yes Lancets lancets Test blood sugar(s) 4 times daily as directed. Dx: diabetes E11.65. Insulin: Yes insulin needles, DISPOSABLE, (PEN NEEDLE) 31 gauge x 5/16 ndle Use one needle per dose. One per day. COMPOUNDED PRESCRIPTION Diabetic shoes with insoles. DX E11.65, E11,49 COMPOUNDED PRESCRIPTION Hinged knee brace for left knee--Don Janine OA Reaction Web Knee brace. Dx Knee pain and decreased mobility secondary to degenerative arthritis 715.96 (Patient not taking: Reported on 10/06/2022) COMPOUNDED PRESCRIPTION ascensia lancets FAMILY HISTORY Problem Relation Age of Onset Diabetes Brother HEART ATTACK,KIDNEY FAILURE Diabetes Father KIDNEY FAILURE Cancer Maternal Grandmother LIVER CANCER Heart Mother QUADRUPLE BIPASS Diabetes Sister Cancer Sister female cancer--told not ovarian cancer; had oophorectomy and having chemo Social History Tobacco Use Smoking status: Former Current packs/day: 0.00 Average packs/day: 0.5 packs/day for 30.0 years (15.0 ttl pk-yrs) Types: Cigarettes Start date: 09/07/1976 Quit date: 09/07/2006 Years since quittin.1 Smokeless tobacco: Never Vaping Use Vaping status: Never Used Substance Use Topics Alcohol use: Not Currently Drug use: Never ASSESSMENT/PLAN: 1. Acute cough - ICD9: 786.2, ICD10: R05.1 (primary diagnosis) - XR CHEST 2V FRONTAL/LAT * * * * Physician Interpretation * * * * EXAMINATION: CHEST RADIOGRAPH (2 VIEW FRONTAL & LATERAL) CLINICAL HISTORY: Acute cough MQ: [id number] EXAM DATE/TIME: 11/10/2024 3:08 PM COMPARISON: [phone] RESULT: Lines, tubes, and devices: None. Lungs and pleura: * Peribronchial wall thickening is noted in the hilar regions. * Patchy perihilar densities also noted No other focal consolidation. No lung mass. No pleural effusion. No pneumothorax. Cardiomediastinal silhouette: Normal cardiomediastinal silhouette. Bones and soft tissues: Unremarkable. IMPRESSION IMPRESSION: Findings could represent bronchitis or developing pneumonia Final Cleaner: MARIE Transcribe Date/Time: Nov 10 2024 3:24P Dictated by : DARLENE BRASWELL DO 2. Bacterial pneumonia - ICD9: 482.9, ICD10: J15.9 - DOXYCYCLINE MONOHYDRATE 100 MG TABLET - AMOXICILLIN 875 MG-POTASSIUM CLAVULANATE 125 MG TABLET Prescription instructions reviewed with patient as applicable. Potential red flag symptoms discussed with the patient. Reviewed appropriate action plan to take if red flag symptoms occur. Patient agreeable to treatment plan. Brayden Chaparro APRN.CENTRAL OFFICE INSTALLER documented in this encounter [facility] 11-09-2024 Telephone encounter Note Message left for pt to return call to a nurse. She also needs her appt with pcp or [facility] reschedule to review Diabetes. [facility] 11-09-2024 Telephone encounter Note Printed for pt to complete her part. [facility] 11-07-2024 Telephone encounter Note [facility] Ambulatory Pharmacy Anticoagulation Clinic Anticoagulation Episode Summary Anticoagulation Care Providers Provider Role Specialty Phone number Estephania Rodriguez MD Referring Internal Medicine [phone] Wendy Forte is a 69 year old year old female patient being evaluated today for a Telemanagement visit. Patient is currently on the following anticoagulant(s) Warfarin. Labs PT INR (no units) Date Value 07/10/2024 2.5 12/13/2021 2.2 11/01/2021 2.2 INR (no units) Date Value 11/05/2024 3.4 09/24/2024 2.2 08/19/2024 1.9 CrCl cannot be calculated (Unknown ideal weight.). 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: Anticoagulation Episode Summary Current INR goal: 2.0-3.0 Assessment: INR result of 3.4 is SUPRAtherapeutic due to: unknown cause - did not speak to patient Plan: Current Warfarin Dosing As of 11/07/2024 Full warfarin instructions: 11/07: 1.25 mg; Otherwise 1.25 mg every Alma; 2.5 mg all other days Left voice message Advised patient to decrease dose for 1 day only then resume weekly regimen Next INR check due on 12/05/2024 Patient instructed to call [facility] at [phone] with any questions or concerns. Jw Roberts RPh Clinical Pharmacist, Pharmacy Anticoagulation Clinic [facility] Pager: [phone] [facility] 11-07-2024 Miscellaneous Notes [facility] Anticoagulation Clinic Anticoagulation Episode Summary Anticoagulation Care Providers Provider Role Specialty Phone number Estephania Rodriguez MD Referring Internal Medicine [phone] Wendy Forte is a 69 year old year old female patient being evaluated today for a Telemanagement visit. Patient is currently on the following anticoagulant(s) Warfarin. Labs PT INR (no units) Date Value 07/10/2024 2.5 12/13/2021 2.2 11/01/2021 2.2 INR (no units) Date Value 11/05/2024 3.4 09/24/2024 2.2 08/19/2024 1.9 CrCl cannot be calculated (Unknown ideal weight.). 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: Anticoagulation Episode Summary Current INR goal: 2.0-3.0 Assessment: INR result of 3.4 is SUPRAtherapeutic due to: unknown cause - did not speak to patient Plan: Current Warfarin Dosing As of 11/07/2024 Full warfarin instructions: 11/07: 1.25 mg; Otherwise 1.25 mg every Alma; 2.5 mg all other days Left voice message Advised patient to decrease dose for 1 day only then resume weekly regimen Next INR check due on 12/05/2024 Patient instructed to call [facility] at [phone] with any questions or concerns. Jw Roberts RPh Clinical Pharmacist, Pharmacy [facility]ticoagulation Clinic [facility] Pager: [phone] documented in this encounter [facility] 11-07-2024 Telephone encounter Note Called patient for scheduled phone appt but unable to reach x 3. LMOM to return call to office to reschedule appt. MyChart is not active. Primary Care Pharmacy Rescheduling Outreach Call center, please contact patient and reschedule telephone visit for Diabetes management within ~4 week(s). (Visit length: 30 minutes) Thank you, Jake Edwards [facility] 11/07/2024 11:21 AM [facility] Work Phone: 11-07-2024 Miscellaneous Notes Called patient for scheduled phone appt but unable to reach x 3. LMOM to return call to office to reschedule appt. MyChart is not active. Primary Care Pharmacy Rescheduling Outreach Call center, please contact patient and reschedule telephone visit for Diabetes management within ~4 week(s). (Visit length: 30 minutes) Thank you, Jake Edwards [facility] 11/07/2024 11:21 AM documented in this encounter [facility] 10-24-2024 Telephone encounter Note Patient notified and verbalized understanding. Orders faxed to [facility] per her request Ana Maria Boo MA [facility] 10-24-2024 Miscellaneous Notes Patient notified and verbalized understanding. Orders faxed to [facility] per her request Ana Maria Boo MA Overall, labs are fine. The elevated alk phos was mild and the alk phos iso enzyme test showed was just elevated for liver. This goes along with finding of hepatic steatosis seen on CT of abdomen at [facility] done 02/19/23. Old term was fatty liver disease and now metabolic associated steatotic liver disease Current recommendations would be to get test to check elasticity of the liver with a special US type test. I ordered the elastography test and US so may get that scheduled at her convenience. If prefers to discuss with me first, okay. Patient calls and is asking for PCP to advise on lab results. Jake Edwards already advised patient on A1C and blood glucose results. Latest Ref Rng 09/24/2024 Alk Phos Bone % 10.7 - 68.3 % 32.6 Bone Fraction 12.9 - 52.6 U/L 46.0 Alk Phos Liver % 26.0 - 86.2 % 67.4 Liver Fraction 16.0 - 69.3 U/L 95.0 (H) Alk Phos Intestine % 0.0 - 24.2 % 0.0 Intestine Fraction 0.0 - 16.3 U/L 0.0 Alkaline Phosphatase 34 - 123 U/L 141 (H) Latest Ref Rng 09/24/2024 Albumin 3.9 - 4.9 g/dL 3.9 Bilirubin, Total 0.2 - 1.3 mg/dL 0.5 Bilirubin, Direct <0.3 mg/dL 0.2 Alkaline Phosphatase 34 - 123 U/L 141 (H) AST 13 - 35 U/L 35 ALT 7 - 38 U/L 21 Protein, Total 6.3 - 8.0 g/dL 8.2 (H) Latest Ref Rng 09/24/2024 Glucose 74 - 99 mg/dL 171 (H) BUN 7 - 21 mg/dL 22 (H) Creatinine 0.58 - 0.96 mg/dL 0.77 Sodium 136 - 144 mmol/L 138 Potassium 3.7 - 5.1 mmol/L 4.3 Chloride 98 - 107 mmol/L 102 CO2 22 - 30 mmol/L 23 Anion Gap 8 - 15 mmol/L 13 Calcium 8.5 - 10.2 mg/dL 9.6 eGFR >=60 mL/min/1.73m 84 documented in this encounter [facility] 10-24-2024 Telephone encounter Note Overall, labs are fine. The elevated alk phos was mild and the alk phos iso enzyme test showed was just elevated for liver. This goes along with finding of hepatic steatosis seen on CT of abdomen at [facility] done 02/19/23. Old term was fatty liver disease and now metabolic associated steatotic liver disease Current recommendations would be to get test to check elasticity of the liver with a special US type test. I ordered the elastography test and US so may get that scheduled at her convenience. If prefers to discuss with me first, okay. [facility] 10-24-2024 Telephone encounter Note Patient calls and is asking for PCP to advise on lab results. Jake Edwards already advised patient on A1C and blood glucose results. Latest Ref Rng 09/24/2024 Alk Phos Bone % 10.7 - 68.3 % 32.6 Bone Fraction 12.9 - 52.6 U/L 46.0 Alk Phos Liver % 26.0 - 86.2 % 67.4 Liver Fraction 16.0 - 69.3 U/L 95.0 (H) Alk Phos Intestine % 0.0 - 24.2 % 0.0 Intestine Fraction 0.0 - 16.3 U/L 0.0 Alkaline Phosphatase 34 - 123 U/L 141 (H) Latest Ref Rng 09/24/2024 Albumin 3.9 - 4.9 g/dL 3.9 Bilirubin, Total 0.2 - 1.3 mg/dL 0.5 Bilirubin, Direct <0.3 mg/dL 0.2 Alkaline Phosphatase 34 - 123 U/L 141 (H) AST 13 - 35 U/L 35 ALT 7 - 38 U/L 21 Protein, Total 6.3 - 8.0 g/dL 8.2 (H) Latest Ref Rng 09/24/2024 Glucose 74 - 99 mg/dL 171 (H) BUN 7 - 21 mg/dL 22 (H) Creatinine 0.58 - 0.96 mg/dL 0.77 Sodium 136 - 144 mmol/L 138 Potassium 3.7 - 5.1 mmol/L 4.3 Chloride 98 - 107 mmol/L 102 CO2 22 - 30 mmol/L 23 Anion Gap 8 - 15 mmol/L 13 Calcium 8.5 - 10.2 mg/dL 9.6 eGFR >=60 mL/min/1.73m 84 [facility] 10-20-2024 Telephone encounter Note Signed and faxed back. [facility] 10-19-2024 Telephone encounter Note Printed for pcp too sign. [facility] 10-19-2024 Telephone encounter Note Once signed by provider please fax forms back to Patient Assistance Team ATTN : Michaela/Janiya at [phone]. Provider portion of patient assistance [facility] applications (Basaglar & Humalog Kwikpens) have been scanned to patient documents. Patient Assistance Team is asking that forms be printed at office for Dr Estephania Rodriguez to review and sign. Thank You! Janiya Osborn [facility] E-Mail : [email or web address] Phone : [phone] Fax : [phone] [facility] 10-14-2024 Telephone encounter Note Fax rec'd from [employer]. Pt is due for new application due 11/22/24 for humalog and basaglar. It looks like pharmacy helps pt with this. Will ask them to review. [facility] 10-14-2024 Miscellaneous Notes Fax rec'd from [employer]. Pt is due for new application due 11/22/24 for humalog and basaglar. It looks like pharmacy helps pt with this. Will ask them to review. documented in this encounter [facility] 10-03-2024 History of Present illness Narrative Primary Care Pharmacy Visit CC (Reason for Consult): Diabetes (E11.69, Z79.4) Type 2 diabetes mellitus with other specified complication, with long-term current use of insulin ([facility]) (primary encounter diagnosis) Goal: A1c < 7% Last Collaborating Provider Visit: 07/25/24 Wendy Forte is a 69 year old female presenting for follow up visit telephone call. Patient consents to pharmacy collaborative practice agreement. Interim Events: 09/28: treated for UTI and overactive bladder 11/11: Referred to PharmD for DM mngt through panel mngt review 11/24: Started PAP application for ozempic. Med review due at follow up visit. 12/22: Basaglar increased; Ozempic PAP application still pending 12/30: pt advised to HOLD potassium and get f/up labs in 2 weeks 01/24: mealtime insulin added with lunch 03/23: no med changes made since pt in [place] 06/13: Ozempic started, insulin decreased HPI: Had bleeding and blood clots in her gums once last week. Per pt she says she spoke with coumadin clinic, who checked with labs and said it likely wasn't related to blood thinner. No longer having this issue but does have a question out to PCP. Surprised to hear that A1c is 9.8%. Energy level is not good. Not as active as she used to be, she is afraid of falling again. Last fall was >1 month ago. Having some increased urinary frequency, sometimes dark color. Sometimes it will have a dark orange color - comes and goes. Drinks a lot of water. Doesn't think she has a UTI, but sometimes has some discomfort that it feels like her bladder will occasionally have spasms. A little more thirsty than usual. Did start Ozempic, had too much stomach issue (cramping, nausea, diarrhea) so stopped medication. No stomach issues currently. States she had been taking it for 2 months before stopping. Thinks she was on the 0.5mg for a couple of weeks before stopping. Recalls having GI issues with the 0.25mg dose too but not as bad as the 0.5mg. Current DM Medications: Metformin ER 500mg tabs - 1000mg BID Semaglutide (Ozempic) 0.5mg weekly (not taking) Insulin glargine (Basaglar) 36 units at bedtime Insulin lispro (Humalog) 2-4-2 units TIDAC (taking ~6-10 units maybe 5x/week; usually only taking with lunch if BG >155) SMBGS (Fingersticks) No lows Checked BG before dinner once last week, was 172 mg/dL Date Fasting AM 2 hr PP Before Lunch 2 hr PP Before Dinner 2 hr PP Bedtime 10/02 159 142 10/01 169 139 09/30 158 149 09/29 153 09/28 169 148 AVG 163 146 Preventative Medications: On VICTOR MANUEL/ARB: No On Statin: Yes ROS: Patient denies CP, SOB, CRUZ, blurred vision, dizziness or lightheadedness Patient denies symptoms of hypoglycemia (sweating, anxiety, palpitations, hunger, and tremor) Patient denies symptoms of hyperglycemia (polyuria, polydipsia, polyphagia) Patient denies potential medication adverse effects DIET/EXERCISE/SOCIAL Hx: No changes with diet Not moving as much MEDICATIONS: Pill bottles are not present. Adherence: denies missed doses. Pharmacy: [facility] [address] [place] [phone] Vivien Espinoza [phone] Rx coverage: Payor: MEDICARE / Plan: MEDICARE A AND B / Product Type: Medicare / Medications affordable? Yes Diabetes Supplies: Yes Organization system: ACTIVE PROBLEM LIST Htn (Hypertension), Benign Hyperlipidemia Type II Diabetes Mellitus, Uncontrolled Urinary Frequency Panic Disorder Without Agoraphobia Gerd (Gastroesophageal Reflux Disease) Heart Palpitations Obesity, Morbid, Bmi 40.0-49.9 ([facility]) Type 2 Diabetes Mellitus With Hyperglycemia, Without Long-Term Current Use of Insulin ([facility]) Paf (Paroxysmal Atrial Fibrillation) ([facility]) Snf Current Use of Anticoagulant Recurrent Major Depressive Disorder, in Full Remission ([facility]) PAST MEDICAL HISTORY Diagnosis Date Adjustment disorder with depressed mood Bladder wall thickening Diverticulitis 2022 Mild Hyperlipidemia 06/13/2009 Mixed stress and urge incontinence Mixed stress and urge incontinence OAB (overactive bladder) Obesity, morbid, BMI 40.0-49.9 ([facility]) Other and unspecified hyperlipidemia Type II or unspecified type diabetes mellitus without mention of complication, not stated as uncontrolled Unspecified essential hypertension Urinary frequency Past medical history reviewed. ALLERGIES Allergen Reactions Sulfa (Sulfonamide * Rash BLISTERS Medication List Medication Directions Comments Action/Plan Biotin 10,000 mcg cap Take 10,000 mcg by mouth once daily. With Keratin 100 MG blood sugar diagnostic (FREESTYLE TEST) test strip Check 4 time daily as directed. DX E11.65, Insulin: Yes Patient taking differently: Check 4 time daily as directed. DX E11.65, Insulin: Yes Checks sugars about three times daily per patient. clopidogrel (PLAVIX) 75 mg tablet Take 1 tablet by mouth once daily. COMPOUNDED PRESCRIPTION Diabetic shoes with insoles. DX E11.65, E11,49 COMPOUNDED PRESCRIPTION Hinged knee brace for left knee--Don Janine OA Reaction Web Knee brace. Dx Knee pain and decreased mobility secondary to degenerative arthritis 715.96 Patient not taking: Reported on 10/06/2022 COMPOUNDED PRESCRIPTION ascensia lancets estradiol (ESTRACE) 0.01 % (0.1 mg/gram) vaginal cream Use 1 g vaginally two times a week. Apply before bed. Apply a pea-sized amount of cream to the vagina/vulva. Patient taking differently: Use 1 g vaginally two times a week. Apply before bed. Apply a pea-sized amount of cream to the vagina/vulva two times a week as needed. FLUoxetine (PROZAC) 40 mg capsule Take 1 capsule by mouth once daily. IFEREX 150 150 mg iron capsule Take 1 capsule by mouth once daily. insulin glargine 100 unit/mL (3 mL) Inject 36 Units subcutaneously daily at bedtime. Patient assistance medication insulin lispro (HUMALOG KWIKPEN INSULIN) 100 unit/mL Inject 2 Units subcutaneously daily with breakfast AND 4 Units daily with lunch AND 2 Units daily with dinner. Patient assistance medication. insulin needles, DISPOSABLE, (PEN NEEDLE) 31 gauge x 5/16 ndle Use one needle per dose. One per day. L. acidophilus/Bifid. animalis (DAILY PROBIOTIC ORAL) Take 1 capsule by mouth once daily. Lancets lancets Test blood sugar(s) 4 times daily as directed. Dx: diabetes E11.65. Insulin: Yes metFORMIN ER (GLUCOPHAGE XR) 500 mg 24 hr tablet Take 2 tablets by mouth two times a day with meals. metoprolol tartrate, short acting, (LOPRESSOR) 50 mg tablet Take 1 tablet by mouth two times a day. rosuvastatin (CRESTOR) 5 mg tablet Take 1 tablet by mouth daily at bedtime. semaglutide (OZEMPIC) 0.25 mg or 0.5 mg (2 mg/3 mL) pen Take 0.25mg weekly for 4 weeks then take 0.5mg weekly thereafter. Gets through [employer]. warfarin (COUMADIN) 2.5 mg tablet Start with 2.5 mg daily except 1.25mg Th Exam: There were no vitals taken for this visit. Last 3 Encounter BP Readings: Date: BP: 07/25/2024 114/77 09/28/2023 150/86 09/09/2023 148/82 Wt: 111.9 kg (246 lb 11.1 oz) BMI: 41.05 kg/(m^2) LABS: Reviewed Lab Results Component Value Date HBA1C 9.8 09/24/2024 HBA1C 7.8 06/10/2024 HBA1C 9.6 09/09/2023 HBA1C 8.2 09/20/2021 HBA1C 11.0 05/29/2021 HBA1C 10.3 11/12/2020 CMP: Glucose 171 09/24/2024 BUN 22 09/24/2024 Creatinine 0.77 09/24/2024 Sodium 138 09/24/2024 Potassium 4.3 09/24/2024 Chloride 102 09/24/2024 CO2 23 09/24/2024 Protein, Total 8.2 09/24/2024 Albumin 3.9 09/24/2024 Calcium 9.6 09/24/2024 Alkaline Phosphatase 141 09/24/2024 Bilirubin, Total 0.5 09/24/2024 AST 35 09/24/2024 ALT 27 08/19/2024 eGFR 84 Lab Results Component Value Date CHOL 176 08/19/2024 CHOL 148 05/29/2021 LDL 100 08/19/2024 LDL 69 05/29/2021 HDL 40 08/19/2024 HDL 34 05/29/2021 TG 180 08/19/2024 TG 225 05/29/2021 The 10-year ASCVD risk score (Zeinab MADERA, et al., 2019) is: 17.4% Values used to calculate the score: Age: 69 years Sex: Female Is Non- : No Diabetic: Yes Tobacco smoker: No Systolic Blood Pressure: 114 mmHg Is BP treated: Yes HDL Cholesterol: 40 mg/dL Total Cholesterol: 176 mg/dL Albumin/Creat Ratio (mg/g) Date Value 08/19/2024 254 (H) PHARMACOTHERAPY ASSESSMENT/PLAN: 1. Type 2 diabetes mellitus with other specified complication, with long-term current use of insulin ([facility]) - ICD9: 250.80, V58.67, ICD10: E11.69, Z79.4 A1c goal < 7%; uncontrolled and worsening control (last A1c 7.8-->9.8%); SMBGs reasonably controlled; A1c does not align with SMBG; (+) sx hyperglycemia; no issues with lows; didn't tolerate Ozempic but willing to retry; will increase SMBG frequency and f/up in ~6 weeks; in future may want to consider SGLT2i given proteinuria RESTART Ozempic - advised to start titrate slowly to better tolerate. Take 1/2 the number of clicks needed to reach the 0.25mg dose for 2 weeks. If tolerating well, may then increase to 0.25mg weekly on Week 3. If not tolerating well, may continue with 1/2 the # clicks until tolerated. Advised to contact office if GI issues/pain worsen or are severe. Continue other medications Increase SMBG to TID to review at f/up visit Patient experiencing some discomfort and occasional dark urine. PharmD advised that she contact PCP office to schedule eval later this week if no improvement or if it worsens. Health Maintenance - Diabetes Topic Date Due Diabetic Foot Exam 06/06/2023 Dilated Retinal Exam 08/28/2024 Follow-up Patient is scheduled to see PCP team on 01/09. Patient to have f/up with PharmD team on 11/07. Patient verbalized understanding of instructions. Jake Edwards PharmD, BCPS Primary Care Clinical Pharmacist Time spent: 30 mins documented in this encounter [facility] 10-03-2024 Note HNO ID: [id number] Author: JAKE EDWARDS RPh Service: ? Author Type: Pharmacist Type: Progress Notes Filed: 10/03/2024 12:09 Note Text: Primary Care Pharmacy Visit CC (Reason for Consult): Diabetes (E11.69, Z79.4) Type 2 diabetes mellitus with other specified complication, with long-term current use of insulin ([facility]) (primary encounter diagnosis) Goal: A1c < 7% Last Collaborating Provider Visit: 07/25/24 Wendy Forte is a 69 year old female presenting for follow up visit telephone call. Patient consents to pharmacy collaborative practice agreement. Interim Events: 09/28: treated for UTI and overactive bladder 11/11: Referred to PharmD for DM mngt through panel mngt review 11/24: Started PAP application for ozempic. Med review due at follow up visit. 12/22: Basaglar increased; Ozempic PAP application still pending 12/30: pt advised to HOLD potassium and get f/up labs in 2 weeks 01/24: mealtime insulin added with lunch 03/23: no med changes made since pt in [place] 06/13: Ozempic started, insulin decreased HPI: Had bleeding and blood clots in her gums once last week. Per pt she says she spoke with coumadin clinic, who checked with labs and said it likely wasn't related to blood thinner. No longer having this issue but does have a question out to PCP. Surprised to hear that A1c is 9.8%. Energy level is not good. Not as active as she used to be, she is afraid of falling again. Last fall was >1 month ago. Having some increased urinary frequency, sometimes dark color. Sometimes it will have a dark orange color - comes and goes. Drinks a lot of water. Doesn't think she has a UTI, but sometimes has some discomfort that it feels like her bladder will occasionally have spasms. A little more thirsty than usual. Did start Ozempic, had too much stomach issue (cramping, nausea, diarrhea) so stopped medication. No stomach issues currently. States she had been taking it for 2 months before stopping. Thinks she was on the 0.5mg for a couple of weeks before stopping. Recalls having GI issues with the 0.25mg dose too but not as bad as the 0.5mg. Current DM Medications: Metformin ER 500mg tabs - 1000mg BID Semaglutide (Ozempic) 0.5mg weekly (not taking) Insulin glargine (Basaglar) 36 units at bedtime Insulin lispro (Humalog) 2-4-2 units TIDAC (taking ~6-10 units maybe 5x/week; usually only taking with lunch if BG >155) SMBGS (Fingersticks) No lows Checked BG before dinner once last week, was 172 mg/dL Date Fasting AM 2 hr PP Before Lunch 2 hr PP Before Dinner 2 hr PP Bedtime 10/02 159 142 10/01 169 139 09/30 158 149 09/29 153 09/28 169 148 AVG 163 146 Preventative Medications: On VICTOR MANUEL/ARB: No On Statin: Yes ROS: Patient denies CP, SOB, CRUZ, blurred vision, dizziness or lightheadedness Patient denies symptoms of hypoglycemia (sweating, anxiety, palpitations, hunger, and tremor) Patient denies symptoms of hyperglycemia (polyuria, polydipsia, polyphagia) Patient denies potential medication adverse effects DIET/EXERCISE/SOCIAL Hx: No changes with diet Not moving as much MEDICATIONS: Pill bottles are not present. Adherence: denies missed doses. Pharmacy: [facility] [address] [place] [id number] [address] [facility] - [phone] Rx coverage: Payor: MEDICARE / Plan: MEDICARE A AND B / Product Type: Medicare / Medications affordable? Yes Diabetes Supplies: Yes Organization system: ACTIVE PROBLEM LIST Htn (Hypertension), Benign Hyperlipidemia Type II Diabetes Mellitus, Uncontrolled Urinary Frequency Panic Disorder Without Agoraphobia Gerd (Gastroesophageal Reflux Disease) Heart Palpitations Obesity, Morbid, Bmi 40.0-49.9 (Formerly [facility]) Type 2 Diabetes Mellitus With Hyperglycemia, Without Long-Term Current Use of Insulin ([facility]) Paf (Paroxysmal Atrial Fibrillation) (Formerly [facility]) Snf Current Use of Anticoagulant Recurrent Major Depressive Disorder, in Full Remission ([facility]ly [facility]) PAST MEDICAL HISTORY Diagnosis Date Adjustment disorder with depressed mood Bladder wall thickening Diverticulitis 2022 Mild Hyperlipidemia 06/13/2009 Mixed stress and urge incontinence Mixed stress and urge incontinence OAB (overactive bladder) Obesity, morbid, BMI 40.0-49.9 ([facility]) Other and unspecified hyperlipidemia Type II or unspecified type diabetes mellitus without mention of complication, not stated as uncontrolled Unspecified essential hypertension Urinary frequency Past medical history reviewed. ALLERGIES Allergen Reactions Sulfa (Sulfonamide * Rash BLISTERS Medication List Medication Directions Comments Action/Plan Biotin 10,000 mcg cap Take 10,000 mcg by mouth once daily. With Keratin 100 MG blood sugar diagnostic (FREESTYLE TEST) test strip Check 4 time daily as directed. DX E11.65, Insulin: Yes Patient taking differently: Check 4 time daily as directed. DX E11.65, Insulin: Yes Checks sugars about three times daily per patient. clopidogrel (PLAV (more content not included)... [facility] 09-27-2024 Telephone encounter Note Noted. I have read and agree with recommendations below. Pharm. Yariel Quiñones. [facility] 09-27-2024 Miscellaneous Notes Noted. I have read and agree with recommendations below. Pharm. Nina Quiñones Patient calling to advise that on 09/22/2024 at bedtime, the patient woke up and noted bleeding and bigger clots (some the size of a quarter) around her gum area. Patient stated she did not vomit or cough any blood. The bleeding lasted approximately (2) hours. Patient did not see any open areas in her mouth. Patient rinsed her mouth out and bleeding stopped. Patient has not had any more bleeding or bruising since and INR was therapeutic. Patient is scheduled to see PCP on 10/03/2024. Advised patient is any more bleeding or increased bruising occurs to go to the ED. Patient voiced understanding. PT INR (no units) Date Value 07/10/2024 2.5 12/13/2021 2.2 11/01/2021 2.2 INR (no units) Date Value 09/24/2024 2.2 08/19/2024 1.9 06/10/2024 2.5 Erna Elizabeth RN Pharmacy [facility] documented in this encounter [facility] 09-27-2024 Telephone encounter Note Patient calling to advise that on 09/22/2024 at bedtime, the patient woke up and noted bleeding and bigger clots (some the size of a quarter) around her gum area. Patient stated she did not vomit or cough any blood. The bleeding lasted approximately (2) hours. Patient did not see any open areas in her mouth. Patient rinsed her mouth out and bleeding stopped. Patient has not had any more bleeding or bruising since and INR was therapeutic. Patient is scheduled to see PCP on 10/03/2024. Advised patient is any more bleeding or increased bruising occurs to go to the ED. Patient voiced understanding. PT INR (no units) Date Value 07/10/2024 2.5 12/13/2021 2.2 11/01/2021 2.2 INR (no units) Date Value 09/24/2024 2.2 08/19/2024 1.9 06/10/2024 2.5 Erna Elizabeth RN Pharmacy Anticoagulation Clinic [facility] 09-26-2024 Telephone encounter Note [facility] Ambulatory Pharmacy Anticoagulation Clinic Anticoagulation Episode Summary Anticoagulation Care Providers Provider Role Specialty Phone number Estephania Rodriguez MD Referring Internal Medicine [phone] Wendy Forte is a 69 year old year old female patient being evaluated today for a Telemanagement visit. Patient is currently on the following anticoagulant(s) Warfarin. Labs PT INR (no units) Date Value 07/10/2024 2.5 12/13/2021 2.2 11/01/2021 2.2 INR (no units) Date Value 09/24/2024 2.2 08/19/2024 1.9 06/10/2024 2.5 Estimated Creatinine Clearance: 86 mL/min (based on SCr of 0.77 mg/dL). 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: Anticoagulation Episode Summary Current INR goal: 2.0-3.0 Assessment: INR result of 2.2 is therapeutic Plan: Current Warfarin Dosing As of 09/26/2024 Full warfarin instructions: 1.25 mg every Alma; 2.5 mg all other days Left voice message Advised patient to continue current weekly dose as noted above Next INR check due on 10/24/2024 Patient instructed to call [facility] at [phone] with any questions or concerns. Jw Roberts RPh Clinical Pharmacist, Pharmacy Anticoagulation Clinic [facility] Pager: [phone] [facility] 09-26-2024 Miscellaneous Notes [facility] Ambulatory Pharmacy Anticoagulation Clinic Anticoagulation Episode Summary Anticoagulation Care Providers Provider Role Specialty Phone number Estephania Rodriguez MD Referring Internal Medicine [phone] Wendy Forte is a 69 year old year old female patient being evaluated today for a Telemanagement visit. Patient is currently on the following anticoagulant(s) Warfarin. Labs PT INR (no units) Date Value 07/10/2024 2.5 12/13/2021 2.2 11/01/2021 2.2 INR (no units) Date Value 09/24/2024 2.2 08/19/2024 1.9 06/10/2024 2.5 Estimated Creatinine Clearance: 86 mL/min (based on SCr of 0.77 mg/dL). 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: Anticoagulation Episode Summary Current INR goal: 2.0-3.0 Assessment: INR result of 2.2 is therapeutic Plan: Current Warfarin Dosing As of 09/26/2024 Full warfarin instructions: 1.25 mg every Alma; 2.5 mg all other days Left voice message Advised patient to continue current weekly dose as noted above Next INR check due on 10/24/2024 Patient instructed to call [facility] at [phone] with any questions or concerns. Jw Roberts RPh Clinical Pharmacist, Pharmacy Anticoagulation Clinic [facility] Pager: [phone] documented in this encounter [facility] 08-22-2024 Telephone encounter Note Called patient to review lab results. Pt reported she was fasting for labs. Lipid panel mostly at goal. TRGs improved from last year but LDL slightly elevated. Pt reports taking statin consistently every day. Encouraged healthy diet of minimally processed foods, no greasy/fried foods, and encouraged more exercise. Glucose was very elevated. Pt reported being fasting but recalls being ill at the time of labwork. Reports Bgs at home have been well controlled, FBGs mostly in the 150s. Alk phos slightly elevated. Will see if PCP needs to comment further on this. Urine test shows more protein which indicates possible damage to kidneys by BP and/or BG elevations. Encouraged BG and BP control. Encouraged checking BP when out at pharmacy (she does not have BP cuff at home). Advised to be seated and relaxed for ~5 mins prior to checking. Contact PCP office if BP elevated. Will consider starting ACEi at next visit. Patient preferred f/up scheduled for 2024. F/up scheduled for 10/03. Jake Edwards PharmD, [facility] Primary Care Clinical Pharmacist [facility] Work Phone: 08-22-2024 Miscellaneous Notes Called patient to review lab results. Pt reported she was fasting for labs. Lipid panel mostly at goal. TRGs improved from last year but LDL slightly elevated. Pt reports taking statin consistently every day. Encouraged healthy diet of minimally processed foods, no greasy/fried foods, and encouraged more exercise. Glucose was very elevated. Pt reported being fasting but recalls being ill at the time of labwork. Reports Bgs at home have been well controlled, FBGs mostly in the 150s. Alk phos slightly elevated. Will see if PCP needs to comment further on this. Urine test shows more protein which indicates possible damage to kidneys by BP and/or BG elevations. Encouraged BG and BP control. Encouraged checking BP when out at pharmacy (she does not have BP cuff at home). Advised to be seated and relaxed for ~5 mins prior to checking. Contact PCP office if BP elevated. Will consider starting ACEi at next visit. Patient preferred f/up scheduled for 2024. F/up scheduled for 10/03. Jake Edwards PharmD, [facility] Primary Care Clinical Pharmacist documented in this encounter [facility] 08-19-2024 Telephone encounter Note [facility] Ambulatory Pharmacy Anticoagulation Clinic Anticoagulation Episode Summary Anticoagulation Care Providers Provider Role Specialty Phone number Estephania Rodriguez MD Referring Internal Medicine [phone] Wendy Forte is a 69 year old year old female patient being evaluated today for a Telemanagement visit. Patient is currently on the following anticoagulant(s) Warfarin. Labs PT INR (no units) Date Value 07/10/2024 2.5 12/13/2021 2.2 11/01/2021 2.2 INR (no units) Date Value 08/19/2024 1.9 06/10/2024 2.5 03/07/2024 2.2 Hemoglobin (g/dL) Date Value 09/09/2023 12.9 07/31/2021 10.4 Hematocrit (%) Date Value 09/09/2023 40.6 07/31/2021 32.1 Platelet Count (k/uL) Date Value 09/09/2023 270 07/31/2021 405 Creatinine (mg/dL) Date Value 02/08/2024 0.74 09/09/2023 0.69 06/10/2023 0.75 07/31/2021 0.65 11/12/2020 0.71 07/03/2020 0.65 Bilirubin, Total (mg/dL) Date Value 09/09/2023 0.5 07/31/2021 0.4 ALT (U/L) Date Value 09/09/2023 32 07/31/2021 16 AST (U/L) Date Value 09/09/2023 26 07/31/2021 17 CrCl cannot be calculated (Patient's most recent lab result is older than the maximum 180 days allowed.). 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 Anticoagulation Episode Summary Current INR goal: 2.0-3.0 Assessment: INR result of 1.9 is SUBtherapeutic due to: unknown cause - did not speak to patient Plan: Current Warfarin Dosing As of 08/19/2024 Full warfarin instructions: 08/19: 3.75 mg; Otherwise 1.25 mg every Alma; 2.5 mg all other days Left voice message Advised patient to increase dose for 1 day only then resume weekly regimen Next lab INR check scheduled on 09/16/2024 Patient advised to call the PAC with any medication changes, bleeding/bruising concerns, recent changes in vitamin k consumption, if any procedures are coming up, if they have been ill or in the hospital, and if they have missed any doses of warfarin. Jigna Arana RPh Clinical Pharmacist, Pharmacy Anticoagulation Clinic Pharmacy [facility] Clinic Pager: [phone]. [facility] 08-19-2024 Miscellaneous Notes [facility] Ambulatory Pharm[facility] Anticoagulation Clinic Anticoagulation Episode Summary Anticoagulation Care Providers Provider Role Specialty Phone number Estephania Rodriguez MD Referring Internal Medicine [phone] Wendy Forte is a 69 year old year old female patient being evaluated today for a Telemanagement visit. Patient is currently on the following anticoagulant(s) Warfarin. Labs PT INR (no units) Date Value 07/10/2024 2.5 12/13/2021 2.2 11/01/2021 2.2 INR (no units) Date Value 08/19/2024 1.9 06/10/2024 2.5 03/07/2024 2.2 Hemoglobin (g/dL) Date Value 09/09/2023 12.9 07/31/2021 10.4 Hematocrit (%) Date Value 09/09/2023 40.6 07/31/2021 32.1 Platelet Count (k/uL) Date Value 09/09/2023 270 07/31/2021 405 Creatinine (mg/dL) Date Value 02/08/2024 0.74 09/09/2023 0.69 06/10/2023 0.75 07/31/2021 0.65 11/12/2020 0.71 07/03/2020 0.65 Bilirubin, Total (mg/dL) Date Value 09/09/2023 0.5 07/31/2021 0.4 ALT (U/L) Date Value 09/09/2023 32 07/31/2021 16 AST (U/L) Date Value 09/09/2023 26 07/31/2021 17 CrCl cannot be calculated (Patient's most recent lab result is older than the maximum 180 days allowed.). 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 fibrillation) (hcc) half-way current use of anticoagulant Anticoagulation Episode Summary Current INR goal: 2.0-3.0 Assessment: INR result of 1.9 is SUBtherapeutic due to: unknown cause - did not speak to patient Plan: Current Warfarin Dosing As of 08/19/2024 Full warfarin instructions: 08/19: 3.75 mg; Otherwise 1.25 mg every Alma; 2.5 mg all other days Left voice message Advised patient to increase dose for 1 day only then resume weekly regimen Next lab INR check scheduled on 09/16/2024 Patient advised to call the PAC with any medication changes, bleeding/bruising concerns, recent changes in vitamin k consumption, if any procedures are coming up, if they have been ill or in the hospital, and if they have missed any doses of warfarin. Jigna Arana RPh Clinical Pharmacist, Pharmacy Anticoagulation Clinic Pharm[facility] Pager: [phone]. documented in this encounter [facility] 08-09-2024 Telephone encounter Note Patient was due to test INR today. Will continue to monitor for results. Follow up in one week if no results received. Rene Schumacher RPh [facility] 08-09-2024 Miscellaneous Notes Patient was due to test INR today. Will continue to monitor for results. Follow up in one week if no results received. Rene Schumacher RPh PATIENT CALL Patient called call center regarding results. Patient called and stated she had INR checked on Thursday at [facility], stated she was admitted for a short period of time. Per Care Everywhere from 07/10: Additional Instructions Your INR value was 2.5 which is a normal range for someone on Coumadin. Please relay this information to your physicians he do not need to have a repeat INR check for the month of July. Continue with Tylenol and add the muscle relaxer for pain control. Add [id number] lidocaine patches or IcyHot or topical pain creams as needed as well. Return to the ER should you have any further concerns or worsening of symptoms She stated she was advised to call and let PAC know of result and to test next the first week of Aug. Will route to [facility] as FYI. Kori Sauer (Glass Robot Operator) documented in this encounter [facility] 07-25-2024 Instructions Estephania Rodriguez MD - 07/25/2024 4:06 PM EST - Continue taking all current medications as prescribed. Refills for Metformin, Fluoxetine, Iron, Metoprolol, Plavix, Warfarin, and Crestor have been sent to your pharmacy for a 90-day supply. - Apply lotion to your legs daily to help with swelling and skin thickening. Use a motion that pulls the lotion back toward yourself to help reduce swelling. - Perform gentle exercises at home to improve balance and strengthen muscles. Use exercises previously given in therapy, including those with light weights or no weights at all. - If you decide to pursue physical therapy for balance and muscle strengthening, contact the clinic for a referral. - Complete lab tests for cholesterol, metabolic panel, and urine opygpmy-[id number]-[id number] ratio (UACR) during your next visit for your Coumadin check in the first week of August. Orders for these tests have been placed and will be available for the next 3 months. - Next follow-up appointment in 6 months. documented in this encounter [facility] 07-25-2024 Note HNO ID: [id number] Author: ESTEPHANIA RODRIGUEZ MD Service: ? Author Type: Physician Type: Progress Notes Filed: 07/30/2024 16:40 Note Text: This note was created using NoteWriter. Subjective Wendy Forte is a 69 year old female. Patient presents with: F/U 6 months SUBJECTIVE: Wendy Forte is a 69 year old year old lady here today for 6 month follow up appointment for review of medical conditions. Wendy Forte is a 69-year-old female with a history of diabetes mellitus, presenting for follow-up after a fall at home on July 10. Wendy reports a fall at home on July 10, occurring between the bathroom and the hallway. She fell forward, hitting her face and back of her head. She denies experiencing lightheadedness, dizziness, or a sensation of impending syncope prior to the fall. She attributes the fall to poor balance and possibly tripping over something, but is uncertain of the exact cause. She notes difficulty laying down and getting comfortable due to soreness, but reports that a prescribed muscle relaxer is providing some relief. Wendy also reports two falls while on vacation in [place] with her son, both occurring when she bent over. She notes that she has difficulty maintaining balance when leaning forward and has learned to avoid this position to prevent falls. Additionally, Wendy reports bilateral lower extremity swelling and tenderness, which she attributes to the altitude in [place]. She notes that the swelling has improved since returning home, but her legs remain tender. She has been applying lotion to her legs and reports that the skin is becoming softer. Wendy is currently taking multiple medications, including fluoxetine, iron tablets, metoprolol, rosuvastatin, warfarin, and Plavix. She reports that she does not need a refill for metformin at this time. She is also receiving insulin and Ozempic through pharmaceutical companies. She denies any bleeding issues and reports that her A1c was 7.8% in June, improved from 9.6%. She is scheduled for a Coumadin check in the first week of August. PAST MEDICAL HISTORY Diagnosis Date Adjustment disorder with depressed mood Bladder wall thickening Diverticulitis 2022 Mild Hyperlipidemia 06/13/2009 Mixed stress and urge incontinence Mixed stress and urge incontinence OAB (overactive bladder) Obesity, morbid, BMI 40.0-49.9 ([facility]) Other and unspecified hyperlipidemia Type II or unspecified type diabetes mellitus without mention of complication, not stated as uncontrolled Unspecified essential hypertension Urinary frequency Current Outpatient Medications Medication Sig clopidogrel (PLAVIX) 75 mg tablet Take 1 tablet by mouth once daily. insulin lispro (HUMALOG KWIKPEN INSULIN) 100 unit/mL Inject 2 Units subcutaneously daily with breakfast AND 4 Units daily with lunch AND 2 Units daily with dinner. Patient assistance medication. semaglutide (OZEMPIC) 0.25 mg or 0.5 mg (2 mg/3 mL) pen Take 0.25mg weekly for 4 weeks then take 0.5mg weekly thereafter. Gets through [employer]. insulin glargine 100 unit/mL (3 mL) Inject 36 Units subcutaneously daily at bedtime. Patient assistance medication L. acidophilus/Bifid. animalis (DAILY PROBIOTIC ORAL) Take 1 capsule by mouth once daily. FLUoxetine (PROZAC) 40 mg capsule Take 1 capsule by mouth once daily. metoprolol tartrate, short acting, (LOPRESSOR) 50 mg tablet Take 1 tablet by mouth two times a day. IFEREX 150 150 mg iron capsule Take 1 capsule by mouth once daily. metFORMIN ER (GLUCOPHAGE XR) 500 mg 24 hr tablet Take 2 tablets by mouth two times a day with meals. warfarin (COUMADIN) 2.5 mg tablet Start with 2.5 mg daily except 1.25mg Thurs rosuvastatin (CRESTOR) 5 mg tablet Take 1 tablet by mouth daily at bedtime. estradiol (ESTRACE) 0.01 % (0.1 mg/gram) vaginal cream Use 1 g vaginally two times a week. Apply before bed. Apply a pea-sized amount of cream to the vagina/vulva. (Patient taking differently: Use 1 g vaginally two times a week. Apply before bed. Apply a pea-sized amount of cream to the vagina/vulva two times a week as needed.) Biotin 10,000 mcg cap Take 10,000 mcg by mouth once daily. With Keratin 100 MG blood sugar diagnostic (FREESTYLE TEST) test strip Check 4 time daily as directed. DX E11.65, Insulin: Yes (Patient taking differently: Check 4 time daily as directed. DX E11.65, Insulin: Yes Checks sugars about three times daily per patient.) Lancets lancets Test blood sugar(s) 4 times daily as directed. Dx: diabetes E11.65. Insulin: Yes insulin needles, DISPOSABLE, (PEN NEEDLE) 31 gauge x 5/16 ndle Use one needle per dose. One per day. COMPOUNDED PRESCRIPTION Diabetic shoes with insoles. DX E11.65, E11,49 COMPOUNDED PRESCRIPTION Hinged knee brace for left knee--Nestor Matsony OA Reaction Web Knee brace. Dx Knee pain and decreased mobility secondary to degenerative arthritis 715.96 (Patient not taking: Reported on (more content not included)... [facility] 07-25-2024 History of Present illness Narrative This note was created using Hippflowter. Subjective Wendy Forte is a 69 year old female. Patient presents with: F/U 6 months SUBJECTIVE: Wendy Forte is a 69 year old year old lady here today for 6 month follow up appointment for review of medical conditions. Wendy Forte is a 69-year-old female with a history of diabetes mellitus, presenting for follow-up after a fall at home on July 10. Wendy reports a fall at home on July 10, occurring between the bathroom and the hallway. She fell forward, hitting her face and back of her head. She denies experiencing lightheadedness, dizziness, or a sensation of impending syncope prior to the fall. She attributes the fall to poor balance and possibly tripping over something, but is uncertain of the exact cause. She notes difficulty laying down and getting comfortable due to soreness, but reports that a prescribed muscle relaxer is providing some relief. Wendy also reports two falls while on vacation in [place] with her son, both occurring when she bent over. She notes that she has difficulty maintaining balance when leaning forward and has learned to avoid this position to prevent falls. Additionally, Wendy reports bilateral lower extremity swelling and tenderness, which she attributes to the altitude in [place]. She notes that the swelling has improved since returning home, but her legs remain tender. She has been applying lotion to her legs and reports that the skin is becoming softer. Wendy is currently taking multiple medications, including fluoxetine, iron tablets, metoprolol, rosuvastatin, warfarin, and Plavix. She reports that she does not need a refill for metformin at this time. She is also receiving insulin and Ozempic through pharmaceutical companies. She denies any bleeding issues and reports that her A1c was 7.8% in June, improved from 9.6%. She is scheduled for a Coumadin check in the first week of August. PAST MEDICAL HISTORY Diagnosis Date Adjustment disorder with depressed mood Bladder wall thickening Diverticulitis 2022 Mild Hyperlipidemia 06/13/2009 Mixed stress and urge incontinence Mixed stress and urge incontinence OAB (overactive bladder) Obesity, morbid, BMI 40.0-49.9 ([facility]) Other and unspecified hyperlipidemia Type II or unspecified type diabetes mellitus without mention of complication, not stated as uncontrolled Unspecified essential hypertension Urinary frequency Current Outpatient Medications Medication Sig clopidogrel (PLAVIX) 75 mg tablet Take 1 tablet by mouth once daily. insulin lispro (HUMALOG KWIKPEN INSULIN) 100 unit/mL Inject 2 Units subcutaneously daily with breakfast AND 4 Units daily with lunch AND 2 Units daily with dinner. Patient assistance medication. semaglutide (OZEMPIC) 0.25 mg or 0.5 mg (2 mg/3 mL) pen Take 0.25mg weekly for 4 weeks then take 0.5mg weekly thereafter. Gets through [employer]. insulin glargine 100 unit/mL (3 mL) Inject 36 Units subcutaneously daily at bedtime. Patient assistance medication L. acidophilus/Bifid. animalis (DAILY PROBIOTIC ORAL) Take 1 capsule by mouth once daily. FLUoxetine (PROZAC) 40 mg capsule Take 1 capsule by mouth once daily. metoprolol tartrate, short acting, (LOPRESSOR) 50 mg tablet Take 1 tablet by mouth two times a day. IFEREX 150 150 mg iron capsule Take 1 capsule by mouth once daily. metFORMIN ER (GLUCOPHAGE XR) 500 mg 24 hr tablet Take 2 tablets by mouth two times a day with meals. warfarin (COUMADIN) 2.5 mg tablet Start with 2.5 mg daily except 1.25mg Thurs rosuvastatin (CRESTOR) 5 mg tablet Take 1 tablet by mouth daily at bedtime. estradiol (ESTRACE) 0.01 % (0.1 mg/gram) vaginal cream Use 1 g vaginally two times a week. Apply before bed. Apply a pea-sized amount of cream to the vagina/vulva. (Patient taking differently: Use 1 g vaginally two times a week. Apply before bed. Apply a pea-sized amount of cream to the vagina/vulva two times a week as needed.) Biotin 10,000 mcg cap Take 10,000 mcg by mouth once daily. With Keratin 100 MG blood sugar diagnostic (FREESTYLE TEST) test strip Check 4 time daily as directed. DX E11.65, Insulin: Yes (Patient taking differently: Check 4 time daily as directed. DX E11.65, Insulin: Yes Checks sugars about three times daily per patient.) Lancets lancets Test blood sugar(s) 4 times daily as directed. Dx: diabetes E11.65. Insulin: Yes insulin needles, DISPOSABLE, (PEN NEEDLE) 31 gauge x 5/16 ndle Use one needle per dose. One per day. COMPOUNDED PRESCRIPTION Diabetic shoes with insoles. DX E11.65, E11,49 COMPOUNDED PRESCRIPTION Hinged knee brace for left knee--Don Janine OA Reaction Web Knee brace. Dx Knee pain and decreased mobility secondary to degenerative arthritis 715.96 (Patient not taking: Reported on 10/06/2022) COMPOUNDED PRESCRIPTION ascensia lancets No current facility-administered medications for this visit. Review of Systems Objective BP 114/77 Pulse 81 Temp 37.2 C (99 F) Resp 16 Wt 111.9 kg (246 lb 11.1 oz) SpO2 98% BMI 41.05 kg/m Physical Exam Constitutional: Appearance: Normal appearance. HENT: Head: Normocephalic. Eyes: Conjunctiva/sclera: Conjunctivae normal. Cardiovascular: Rate and Rhythm: Normal rate and regular rhythm. Heart sounds: Normal heart sounds. Pulmonary: Effort: Pulmonary effort is normal. Breath sounds: Normal breath sounds. Musculoskeletal: Right lower le+ Edema present. Left lower le+ Edema present. Skin: General: Skin is warm and dry. Findings: Bruising and ecchymosis present. Comments: Left face including periorbital Neurological: General: No focal deficit present. Mental Status: She is alert and oriented to person, place, and time. Psychiatric: Mood and Affect: Mood normal. Behavior: Behavior normal. Thought Content: Thought content normal. Judgment: Judgment normal. Hemoglobin A1C (%) Date Value 06/10/2024 7.8 09/09/2023 9.6 06/10/2023 8.9 10/06/2022 9.2 06/30/2022 11.5 09/20/2021 8.2 05/29/2021 11.0 11/12/2020 10.3 07/03/2020 11.8 10/13/2018 11.2 Hemoglobin A1C (POCT) (%) Date Value 01/08/2019 10.6 Assessment and Plan # Type 2 diabetes mellitus with other specified complication, with long-term current use of insulin (HCC) (E11.69) - Recent A1c in June was 7.8%, improved from 9.6%. - Continue current regimen including metformin 500 mg BID and insulin. - Ordered comprehensive metabolic panel and A1c to be done during next INR check in the first week of August. - Refilled metformin for 90 days. # Fall, sequela (W19.XXXS) - Recent fall on July 10 resulted in back and facial impact. - Experiencing soreness and difficulty getting comfortable when lying down. - Continue current muscle relaxant as it is providing relief. - Discussed importance of balance exercises and safety measures to prevent future falls. - Consider physical therapy for balance improvement if covered by insurance. # Bilateral lower extremity edema (R60.0) # Stasis dermatitis of both legs (I87.2) - Edema and stasis dermatitis showing improvement; skin is softer and less swollen. - Continue regular application of emollients to affected areas. - Advised on gentle exercises and self-massage to promote lymphatic drainage. # Panic disorder without agoraphobia (F41.0) - Continue current management with fluoxetine. - Refilled fluoxetine for 90 days. # PAF (paroxysmal atrial fibrillation) (HCC) (I48.0) # Anticoagulated on Coumadin (Z79.01) - Continue current anticoagulation therapy with warfarin 2.5 mg daily, except 1.25 mg on . - Next INR check scheduled for the first week of August. - Refilled warfarin for 90 days. # Mixed hyperlipidemia (E78.2) - Continue current management with rosuvastatin. - Ordered lipid panel to be done during next INR check in the first week of August. - Refilled rosuvastatin for 90 days. # Encounter for immunization (Z23) - Flu shot and COVID vaccine administered. Estephania Rodriguez MD documented in this encounter [facility] 07-12-2024 Telephone encounter Note PATIENT CALL Patient called call center regarding results. Patient called and stated she had INR checked on Thursday at [facility], stated she was admitted for a short period of time. Per Care Everywhere from 07/10: Additional Instructions Your INR value was 2.5 which is a normal range for someone on Coumadin. Please relay this information to your physicians he do not need to have a repeat INR check for the month of July. Continue with Tylenol and add the muscle relaxer for pain control. Add [id number] lidocaine patches or IcyHot or topical pain creams as needed as well. Return to the ER should you have any further concerns or worsening of symptoms She stated she was advised to call and let PAC know of result and to test next the first week of Aug. Will route to [facility] as FYI. Kori Sauer (Hunite) [facility] 06-27-2024 Telephone encounter Note Patient is asking only for enough medication to get her to her appt on 07/25/[address] Rodriguez. She will then ask for a 90 day supply along with the rest of her med refills. That way her refills will all be synced. [facility] 06-27-2024 Miscellaneous Notes Patient is asking only for enough medication to get her to her appt on 07/25/[address] Rodriguez. She will then ask for a 90 day supply along with the rest of her med refills. That way her refills will all be synced. Prescription Refill Information The patient has been identified by name and date of : Yes Caregiver verified no other encounters exist for this prescription request: Yes Caregiver confirmed with patient/requestor that no other refills are due, in the near future, with this provider at this time: Yes The last office visit in the department: 06/13/24 Does the patient have a future office visit with this provider/department: Yes Requested Prescriptions Pending Prescriptions Disp Refills clopidogrel (PLAVIX) 75 mg tablet Sig: Take 1 tablet by mouth once daily. Oriana Major June 27, 2024 11:45 AM documented in this encounter [facility] 06-27-2024 Telephone encounter Note Prescription Refill Information The patient has been identified by name and date of : Yes Caregiver verified no other encounters exist for this prescription request: Yes Caregiver confirmed with patient/requestor that no other refills are due, in the near future, with this provider at this time: Yes The last office visit in the department: 06/13/24 Does the patient have a future office visit with this provider/department: Yes Requested Prescriptions Pending Prescriptions Disp Refills clopidogrel (PLAVIX) 75 mg tablet Sig: Take 1 tablet by mouth once daily. Oriana Major June 27, 2024 11:45 AM [facility] 06-13-2024 History of Present illness Narrative Primary Care Pharmacy Visit CC (Reason for Consult): Diabetes Goal: A1c < 7% Last Collaborating Provider Visit: 09/09/23 Wendy Forte is a 69 year old female presenting for follow up visit telephone call. Patient consents to pharmacy collaborative practice agreement. Interim Events: 09/09: no med changes at PCP visit 09/28: treated for UTI and overactive bladder 11/11: Referred to PharmD for DM mngt through panel mngt review 11/24: Started PAP application for ozempic. Med review due at follow up visit. 12/22: Basaglar increased; Ozempic PAP application still pending 12/30: pt advised to HOLD potassium and get f/up labs in 2 weeks 01/24: mealtime insulin added with lunch 03/23: no med changes made since pt in [place] HPI: Very happy with A1c improvement. Overall feeling well. Did start to have some puffiness in legs. Seeing provider in July and plans to discuss then. Both legs, entire leg. Feel tender. No discoloration. Puffiness will improve a little bit if elevated. Puffiness has improved since coming home. Current DM Medications: Metformin ER 500mg tabs - 1000mg BID Semaglutide (Ozempic) 0.25mg weekly x 4 weeks then increase to 0.5mg weekly thereafter (has not yet started, pick it up) Insulin glargine (Basaglar) 36 units at bedtime Insulin lispro (Humalog) 6-4-6 units TIDAC (taking 4-6-4 units TIDAC) SMBGS (Fingersticks) FBGs usually in the 160s, seeing some in 150s No issue with low blood sugars Preventative Medications: On VICTOR MANUEL/ARB: No On Statin: Yes MEDICATIONS: Pill bottles are not present. Adherence: denies missed doses. Pharmacy: [facility] [address] [place] [id number] [address] [facility] [facility] [phone] Rx coverage: Payor: MEDICARE / Plan: MEDICARE A AND B / Product Type: Medicare / Medications affordable? 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 Recurrent Major Depressive Disorder, in Full Remission ([facility]) PAST MEDICAL HISTORY Diagnosis Date Adjustment disorder with depressed mood Bladder wall thickening Diverticulitis 2022 Mild Hyperlipidemia 06/13/2009 Mixed stress and urge incontinence Mixed stress and urge incontinence OAB (overactive bladder) Obesity, morbid, BMI 40.0-49.9 ([facility]) Other and unspecified hyperlipidemia Type II or unspecified type diabetes mellitus without mention of complication, not stated as uncontrolled Unspecified essential hypertension Urinary frequency Past medical history reviewed. ALLERGIES Allergen Reactions Sulfa (Sulfonamide * Rash BLISTERS Medication List Medication Directions Comments Action/Plan Biotin 10,000 mcg cap Take 10,000 mcg by mouth once daily. With Keratin 100 MG blood sugar diagnostic (FREESTYLE TEST) test strip Check 4 time daily as directed. DX E11.65, Insulin: Yes Patient taking differently: Check 4 time daily as directed. DX E11.65, Insulin: Yes Checks sugars about three times daily per patient. clopidogrel (PLAVIX) 75 mg tablet Take 1 tablet by mouth once daily. COMPOUNDED PRESCRIPTION Diabetic shoes with insoles. DX E11.65, E11,49 COMPOUNDED PRESCRIPTION Hinged knee brace for left knee--Don Janine OA Reaction Web Knee brace. Dx Knee pain and decreased mobility secondary to degenerative arthritis 715.96 Patient not taking: Reported on 10/06/2022 COMPOUNDED PRESCRIPTION ascjodi samano estradiol (ESTRACE) 0.01 % (0.1 mg/gram) vaginal cream Use 1 g vaginally two times a week. Apply before bed. Apply a pea-sized amount of cream to the vagina/vulva. Patient taking differently: Use 1 g vaginally two times a week. Apply before bed. Apply a pea-sized amount of cream to the vagina/vulva two times a week as needed. FLUoxetine (PROZAC) 40 mg capsule Take 1 capsule by mouth once daily. IFEREX 150 150 mg iron capsule Take 1 capsule by mouth once daily. insulin glargine 100 unit/mL (3 mL) Inject 36 Units subcutaneously daily at bedtime. Patient assistance medication insulin lispro (HUMALOG KWIKPEN INSULIN) 100 unit/mL Inject 6 Units subcutaneously daily with breakfast AND 4 Units daily with lunch AND 6 Units daily with dinner. Patient assistance medication. insulin needles, DISPOSABLE, (PEN NEEDLE) 31 gauge x 5/16 ndle Use one needle per dose. One per day. L. acidophilus/Bifid. animalis (DAILY PROBIOTIC ORAL) Take 1 capsule by mouth once daily. Lancets lancets Test blood sugar(s) 4 times daily as directed. Dx: diabetes E11.65. Insulin: Yes Patient not taking: Reported on 09/28/2023 metFORMIN ER (GLUCOPHAGE XR) 500 mg 24 hr tablet Take 2 tablets by mouth two times a day with meals. metoprolol tartrate, short acting, (LOPRESSOR) 50 mg tablet Take 1 tablet by mouth two times a day. rosuvastatin (CRESTOR) 5 mg tablet Take 1 tablet by mouth daily at bedtime. semaglutide (OZEMPIC) 0.25 mg or 0.5 mg (2 mg/3 mL) pen Take 0.25mg weekly for 4 weeks then take 0.5mg weekly thereafter. NOT TAKING as of 3..24 --> started application through [employer]. Patient not taking: Reported on 12/23/2023 warfarin (COUMADIN) 2.5 mg tablet Start with 2.5 mg daily except 1.25mg Thurs Exam: There were no vitals taken for this visit. Last 3 Encounter BP Readings: Date: BP: 09/28/2023 150/86 09/09/2023 148/82 05/18/2023 138/78 Wt: 114.4 kg (252 lb 3.2 oz) BMI: 41.97 kg/(m^2) LABS: Reviewed Lab Results Component Value Date HBA1C 7.8 06/10/2024 HBA1C 9.6 09/09/2023 HBA1C 8.9 06/10/2023 HBA1C 8.2 09/20/2021 HBA1C 11.0 05/29/2021 HBA1C 10.3 11/12/2020 CMP: Glucose 251 02/08/2024 BUN 21 02/08/2024 Creatinine 0.74 02/08/2024 Sodium 138 02/08/2024 Potassium 4.1 02/08/2024 Albumin 3.9 09/09/2023 Calcium 9.5 02/08/2024 AST 26 09/09/2023 ALT 32 09/09/2023 Lab Results Component Value Date CHOL 160 06/10/2023 CHOL 148 05/29/2021 LDL 75 06/10/2023 LDL 69 05/29/2021 HDL 34 06/10/2023 HDL 34 05/29/2021 TG 254 06/10/2023 TG 225 05/29/2021 Albumin/Creat Ratio (mg/g) Date Value 07/07/2023 162 (H) The 10-year ASCVD risk score (Zeinab MADERA, et al., 2019) is: 28.4% Values used to calculate the score: Age: 69 years Sex: Female Is Non- : No Diabetic: Yes Tobacco smoker: No Systolic Blood Pressure: 150 mmHg Is BP treated: Yes HDL Cholesterol: 34 mg/dL Total Cholesterol: 160 mg/dL PHARMACOTHERAPY ASSESSMENT/PLAN: 1. Type 2 diabetes mellitus with other specified complication, with long-term current use of insulin ([facility]) - ICD9: 250.80, V58.67, ICD10: E11.69, Z79.4 A1c goal < 7%; uncontrolled (last A1c 7.8%); A1c much improved; Bgs reasonable but FBGs still elevated; will start Ozempic today and reduce insulin to mitigate lows; f/up in ~6 weeks or sooner if needed INITIATE Ozempic 0.25mg weekly x 4 weeks then INCREASE to 0.5mg weekly as tolerated Patient reports hx pancreatitis once in her past but no issues since gall bladder was removed; Patient denies personal/family hx of MEN2/MTC; we discussed the reported risk of medullary thyroid cancer/c-cell hyperplasia noted in rats who received clinically relevant doses of GLP1 agonist; risk of medullary thyroid cancer/c-cell hyperplasia has yet to be demonstrated in humans, especially in the current pharmacologic doses approved for use; potential for weight loss with improved glycemic control warrant trial of medication; patient made informed decision to try the medication; medication has been fully explained to patient, including risk of C-cell hyperplasia in the thyroid gland occurring in mice/rats, risk of pancreatitis or gall bladder issues, injection technique, risk of hypoglycemia, side effects including nausea/vomiting; reviewed dietary adjustments to prevent ADEs: smaller more frequent meals, not eating past full, avoiding foods high in fat - patient expressed understanding Advised to contact office or PharmD if having bothersome GI issues or sharp/stabbing abkdominal pains DECREASE Humalog to 2-4-2 units TIDAC Continue other medications Applauded on improved A1c Last documented BP was elevated. Pt indicated for ACEi given proteinuria; will get new baseline Scr and K+ levels and consider starting after next BP check - INSULIN LISPRO (U-100) 100 UNIT/ML SUBCUTANEOUS PEN - BASIC METABOLIC PANEL - SEMAGLUTIDE 0.25 MG OR 0.5 MG (2 MG/3 ML) SUBCUTANEOUS PEN INJECTOR Patient mentioned having some swelling in legs. No SOB. No discoloration or signs of infection. Encouraged her to call and discuss with nurse. Follow-up Patient is scheduled to see PCP team on 07/25. Patient to have f/up with PharmD team on 07/11. Patient verbalized understanding of instructions. Jake Edwards PharmD, [facility] Primary Care Clinical Pharmacist Time spent: 30 mins documented in this encounter [facility] 06-13-2024 Telephone encounter Note [facility] Ambulatory Pharmacy Anticoagulation Clinic Anticoagulation Episode Summary Anticoagulation Care Providers Provider Role Specialty Phone number Estephania Rodriguez MD Referring Internal Medicine [phone] Wendy Forte is a 69 year old year old female patient being evaluated today for a Telemanagement visit. Patient is currently on the following anticoagulant(s) Warfarin. Labs PT INR (no units) Date Value 12/13/2021 2.2 11/01/2021 2.2 10/15/2021 1.9 INR (no units) Date Value 06/10/2024 2.5 03/07/2024 2.2 02/08/2024 1.5 CrCl cannot be calculated (Unknown ideal weight.). 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: Anticoagulation Episode Summary Current INR goal: 2.0-3.0 Assessment: INR result of 2.5 is therapeutic Plan: Current Warfarin Dosing As of 06/13/2024 Full warfarin instructions: 1.25 mg every Alma; 2.5 mg all other days Called and spoke to patient/caregiver Advised patient to continue current weekly dose as noted above Next INR check due on 07/25/2024 Patient verbalizes understanding of the plan. Jw Roberts RPh Clinical Pharmacist, Pharmacy Anticoagulation Clinic Pharmacy Anticoagulation Clinic Pager: [phone]. [facility] 06-13-2024 Miscellaneous Notes [facility] Ambulatory Pharmacy Anticoagulation Clinic Anticoagulation Episode Summary Anticoagulation Care Providers Provider Role Specialty Phone number Estephania Rodriguez MD Referring Internal Medicine [phone] Wendy Forte is a 69 year old year old female patient being evaluated today for a Telemanagement visit. Patient is currently on the following anticoagulant(s) Warfarin. Labs PT INR (no units) Date Value 12/13/2021 2.2 11/01/2021 2.2 10/15/2021 1.9 INR (no units) Date Value 06/10/2024 2.5 03/07/2024 2.2 02/08/2024 1.5 CrCl cannot be calculated (Unknown ideal weight.). 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: Anticoagulation Episode Summary Current INR goal: 2.0-3.0 Assessment: INR result of 2.5 is therapeutic Plan: Current Warfarin Dosing As of 06/13/2024 Full warfarin instructions: 1.25 mg every Alma; 2.5 mg all other days Called and spoke to patient/caregiver Advised patient to continue current weekly dose as noted above Next INR check due on 07/25/2024 Patient verbalizes understanding of the plan. Jw Roberts RPh Clinical Pharmacist, Pharmacy Anticoagulation Clinic Pharmacy Anticoagulation Clinic Pager: [phone]. documented in this encounter [facility] 05-30-2024 Telephone encounter Note Called patient for scheduled phone appt for DM mngt. Pt was in [place], currently driving home from [place]. Expects to be back home at the end of the week. Rescheduled phone appt for 06/13. Jake Edwards PharmD, [facility] Primary Care Clinical Pharmacist [facility] Work Phone: 05-30-2024 Miscellaneous Notes Called patient for scheduled phone appt for DM mngt. Pt was in [place], currently driving home from [place]. Expects to be back home at the end of the week. Rescheduled phone appt for 06/13. Jake Edwards PharmD, [facility] Primary Care Clinical Pharmacist documented in this encounter [facility] 05-25-2024 Telephone encounter Note This is ready for cotton picker in the fridge on the second floor left side. Message left for pt to return call to a nurse. [facility] 05-25-2024 Miscellaneous Notes This is ready for cotton picker in the fridge on the second floor left side. Message left for pt to return call to a nurse. Yes, will plan for patient to start Ozempic since it has been received by PCP office. She has been out of town for the summer but should be returning sometime in May. I will reach out to her to see if she has returned and request to schedule f/up visit with PharmD for DM mngt. Thanks! Jake Edwards PharmD, [facility] Primary Care Clinical Pharmacist Rec'd ozempic Sig: Take 0.25mg weekly for 4 weeks then take 0.5mg weekly thereafter. from [employer]. Lot number is [id number] and exp date is 11/04/25. Please verify the ozempic is in addition to her other diabetic medicines. documented in this encounter [facility] 05-25-2024 Telephone encounter Note Yes, will plan for patient to start Ozempic since it has been received by PCP office. She has been out of town for the summer but should be returning sometime in May. I will reach out to her to see if she has returned and request to schedule f/up visit with PharmD for DM mngt. Thanks! Jake Edwards PharmD, [facility] Primary Care Clinical Pharmacist [facility] Work Phone: 05-25-2024 Telephone encounter Note Rec'd ozempic Sig: Take 0.25mg weekly for 4 weeks then take 0.5mg weekly thereafter. from [employer]. Lot number is [id number] and exp date is 11/04/25. Please verify the ozempic is in addition to her other diabetic medicines. [facility] 05-11-2024 History of Present illness Narrative Called [employer] automated line to check on application status after proof of income was sent. Patient has been approved with [employer] [address] for medication(s) Ozempic 0.25/0.5mg through 05/2025. Patient [employer] ID is : Below is fax sent to PAP Team alerting of patient approval in program through 05/2025. PAP Team will alert pharmacist of approved status. Once approval fax is sent will upload completed application & approval letter to patient encounter. Janiya Osborn [facility] E-Mail : [email or web address] Phone : [phone] Fax : [phone] Images from the original note were not included. Proof of income enhanced & faxed to [employer] on 05/10/2024. Will follow up with [employer] in 24-48 hours if no correspondence is sent to PAP Team. (See confirmation fax of income below) Janiya Osborn [facility] E-Mail : [email or web address] Phone : [phone] Fax : [phone] Images from the original note were not included. This patient has been referred by pharmacy for collision worker patient assistance program enterprise application architect. STATUS OF APPLICATION: Can be viewed under the encounter Additional Documentation > SmartForms: [facility] RX AMB CLINIC PATIENT ASSISTANCE Completed forms sent to providers for signatures and/or to collision worker will be available under Scanned Documents. The finalized form can be found under PAP_Medication Name_Complete. PAP Account Administrator Team will submit and track progress on the completed PAP application. Please do NOT fax to collision worker unless directed by the PAP Account Administrator Team. Please see SmartForm described above for specifics. Please DO NOT close this encounter. Sent to patient: Patient signed forms in RXPAP email 04/29 Found proof of income in scanned documents (February) Sent to prescriber: Faxed provider forms to office 04/29 Sent to collision worker: Faxed to [employer]I 05/03 documented in this encounter [facility] 04-19-2024 Telephone encounter Note LVM for the patient to discuss proof of income. Of the income documents submitted, the documents for Zach and Manolo are not being accepted by the company. W-2 information, tax return, or the 2 most recent pay stubs for each would be accepted. Kori Dickinson CPhT. Pharmacy Patient Assistance Team Email: [facility] 04-19-2024 Miscellaneous Notes LVM for the patient to discuss proof of income. Of the income documents submitted, the documents for Zach and Manolo are not being accepted by the company. W-2 information, tax return, or the 2 most recent pay stubs for each would be accepted. Kori Dickinson CPhT. Pharmacy Patient Assistance Team Email: Routing to Kori Dickinson pharmacy patient assistance speech therapist technician working on [employer] application Anastasiya Sanchez PharmD, BCACP Primary Care Clinical Icing Mixer [employer] Pt. assistance calling and still needs Proof of income for Ozempic. documented in this encounter [facility] 04-12-2024 Telephone encounter Note Routing to Kori Dickinson pharmacy patient assistance speech therapist technician working on Andre Phillipes [employer] application Anastasiya Sanchez PharmD, BCACP Primary Care Clinical Icing Mixer [facility] Work Phone: 04-11-2024 Telephone encounter Note Magali Nord[employer] Pt. assistance calling and still needs Proof of income for Ozempic. [facility] Work Phone: 03-23-2024 History of Present illness Narrative Primary Care Pharmacy Visit CC (Reason for Consult): Diabetes (E11.69, Z79.4) Type 2 diabetes mellitus with other specified complication, with long-term current use of insulin (HCC) (primary encounter diagnosis) Goal: A1c < 7% Last Collaborating Provider Visit: 09/09/23 Wendy Forte is a 69 year old female presenting for follow up visit telephone call. Patient consents to pharmacy collaborative practice agreement. Interim Events: 09/09: no med changes at PCP visit 09/28: treated for UTI and overactive bladder 11/11: Referred to PharmD for DM mngt through panel mngt review 11/24: Started PAP application for ozempic. Med review due at follow up visit. 12/22: Basaglar increased; Ozempic PAP application still pending 12/30: pt advised to HOLD potassium and get f/up labs in 2 weeks 01/24: mealtime insulin added with lunch HPI: Spoke with patient. She reports being in [place] right now visiting her son. Will not be returning to [place] until mid-May. PharmD informed pt that I am unable to complete telehealth visits with pts outside the state of [place]. She understood and appt with rescheduled for May once she returns. Pt did mention that she feels the additional lunchtime insulin shot has been helping a lot. No issues with hypoglycemia. No Bgs >200. Most recent readings ~176 mg/dL. She feels things are going well. She doesn't yet know the status of Ozempic PAP application. States she received a call from repair technician, Kori, who is helping with PAP, and she LMOM. Pt planning to call her back today. PharmD advised, if approved for Lisa, to cotton picker medication from office once she returns from [place] but to NOT start the medication until after our follow-up visit --> she agreed. Current DM Medications: Metformin ER 500mg tabs - 1000mg BID Insulin glargine (Basaglar) 36 units at bedtime Insulin lispro (Humalog) 6-4-6 units TIDAC ACTIVE PROBLEM LIST Htn (Hypertension), Benign Hyperlipidemia Type II Diabetes Mellitus, Uncontrolled Urinary Frequency Panic Disorder Without Agoraphobia Gerd (Gastroesophageal Reflux Disease) Heart Palpitations Obesity, Morbid, Bmi 40.0-49.9 ([facility]) Type 2 Diabetes Mellitus With Hyperglycemia, Without Long-Term Current Use of Insulin ([facility]) Paf (Paroxysmal Atrial Fibrillation) ([facility]) 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 Recurrent Major Depressive Disorder, in Full Remission ([facility]) PAST MEDICAL HISTORY Diagnosis Date Adjustment disorder with depressed mood Bladder wall thickening Diverticulitis 2022 Mild Hyperlipidemia 06/13/2009 Mixed stress and urge incontinence Mixed stress and urge incontinence OAB (overactive bladder) Obesity, morbid, BMI 40.0-49.9 ([facility]) Other and unspecified hyperlipidemia Type II or unspecified type diabetes mellitus without mention of complication, not stated as uncontrolled Unspecified essential hypertension Urinary frequency Past medical history reviewed. ALLERGIES Allergen Reactions Sulfa (Sulfonamide * Rash BLISTERS Medication List Medication Directions Comments Action/Plan Biotin 10,000 mcg cap Take 10,000 mcg by mouth once daily. With Keratin 100 MG blood sugar diagnostic (FREESTYLE TEST) test strip Check 4 time daily as directed. DX E11.65, Insulin: Yes Patient taking differently: Check 4 time daily as directed. DX E11.65, Insulin: Yes Checks sugars about three times daily per patient. clopidogrel (PLAVIX) 75 mg tablet Take 1 tablet by mouth once daily. COMPOUNDED PRESCRIPTION Diabetic shoes with insoles. DX E11.65, E11,49 COMPOUNDED PRESCRIPTION Hinged knee brace for left knee--Don Janine OA Reaction Web Knee brace. Dx Knee pain and decreased mobility secondary to degenerative arthritis 715.96 Patient not taking: Reported on 10/06/2022 COMPOUNDED PRESCRIPTION ascensia lancets estradiol (ESTRACE) 0.01 % (0.1 mg/gram) vaginal cream Use 1 g vaginally two times a week. Apply before bed. Apply a pea-sized amount of cream to the vagina/vulva. Patient taking differently: Use 1 g vaginally two times a week. Apply before bed. Apply a pea-sized amount of cream to the vagina/vulva two times a week as needed. FLUoxetine (PROZAC) 40 mg capsule Take 1 capsule by mouth once daily. IFEREX 150 150 mg iron capsule Take 1 capsule by mouth once daily. insulin glargine 100 unit/mL (3 mL) Inject 36 Units subcutaneously daily at bedtime. Patient assistance medication insulin lispro (HUMALOG KWIKPEN INSULIN) 100 unit/mL Inject 6 Units subcutaneously daily with breakfast AND 4 Units daily with lunch AND 6 Units daily with dinner. Patient assistance medication. insulin needles, DISPOSABLE, (PEN NEEDLE) 31 gauge x 5/16 ndle Use one needle per dose. One per day. L. acidophilus/Bifid. animalis (DAILY PROBIOTIC ORAL) Take 1 capsule by mouth once daily. Lancets lancets Test blood sugar(s) 4 times daily as directed. Dx: diabetes E11.65. Insulin: Yes Patient not taking: Reported on 09/28/2023 metFORMIN ER (GLUCOPHAGE XR) 500 mg 24 hr tablet Take 2 tablets by mouth two times a day with meals. metoprolol tartrate, short acting, (LOPRESSOR) 50 mg tablet Take 1 tablet by mouth two times a day. rosuvastatin (CRESTOR) 5 mg tablet Take 1 tablet by mouth daily at bedtime. semaglutide (OZEMPIC) 0.25 mg or 0.5 mg (2 mg/3 mL) pen Take 0.25mg weekly for 4 weeks then take 0.5mg weekly thereafter. NOT TAKING as of 3..24 --> started application through [employer]. Patient not taking: Reported on 12/23/2023 warfarin (COUMADIN) 2.5 mg tablet Start with 2.5 mg daily except 1.25mg Thurs Exam: There were no vitals taken for this visit. Last 3 Encounter BP Readings: Date: BP: 09/28/2023 150/86 09/09/2023 148/82 05/18/2023 138/78 Wt: 114.4 kg (252 lb 3.2 oz) BMI: 41.97 kg/(m^2) LABS: Reviewed Lab Results Component Value Date HBA1C 9.6 09/09/2023 HBA1C 8.9 06/10/2023 HBA1C 9.2 10/06/2022 HBA1C 8.2 09/20/2021 HBA1C 11.0 05/29/2021 HBA1C 10.3 11/12/2020 CMP: Glucose 251 02/08/2024 BUN 21 02/08/2024 Creatinine 0.74 02/08/2024 Sodium 138 02/08/2024 Potassium 4.1 02/08/2024 Chloride 104 02/08/2024 CO2 23 02/08/2024 Protein, Total 8.1 09/09/2023 Albumin 3.9 09/09/2023 Calcium 9.5 02/08/2024 Alkaline Phosphatase 123 09/09/2023 Bilirubin, Total 0.5 09/09/2023 AST 26 09/09/2023 ALT 32 09/09/2023 No results found for: GFR CrCl cannot be calculated (Unknown ideal weight.). Lab Results Component Value Date CHOL 160 06/10/2023 CHOL 148 05/29/2021 LDL 75 06/10/2023 LDL 69 05/29/2021 HDL 34 06/10/2023 HDL 34 05/29/2021 TG 254 06/10/2023 TG 225 05/29/2021 The 10-year ASCVD risk score (Zeinab MADERA, et al., 2019) is: 28.4% Values used to calculate the score: Age: 69 years Sex: Female Is Non- : No Diabetic: Yes Tobacco smoker: No Systolic Blood Pressure: 150 mmHg Is BP treated: Yes HDL Cholesterol: 34 mg/dL Total Cholesterol: 160 mg/dL Albumin/Creat Ratio (mg/g) Date Value 07/07/2023 162 (H) PHARMACOTHERAPY ASSESSMENT/PLAN: 1. Type 2 diabetes mellitus with other specified complication, with long-term current use of insulin (HCC) - ICD9: 250.80, V58.67, ICD10: E11.69, Z79.4 No visit performed today (see above). Tolerating regimen well, no concerns for lows. Bgs reasonable Will f/up in May once she returns to [place]. Follow-up Patient is scheduled to see PCP team on 07/25. Patient to have f/up with PharmD team on 05/30. Patient verbalized understanding of instructions. Jake Edwards, CasaD, BCPS Primary Care Clinical Pharmacist Time spent: 8 mins documented in this encounter [facility] 03-22-2024 Telephone encounter Note Contacted patient 03/22/24 and LV regarding PAP Application. Proof of Income for the other 2 members of the patient's household not accepted. Program will accept -2 most current paycheck stubs or earning statements for all working members of your household -Last year's federal Individual Income Tax Return (1040) -Social Security income, pension, and other income statements -W-2 or 1099 forms -Unemployment benefit statements LVM with call back number. -Kori Dickinson CPhT. Pharmacy Patient Assistance Team [facility] 03-22-2024 Miscellaneous Notes Contacted patient 03/22/24 and LVM regarding PAP Application. Proof of Income for the other 2 members of the patient's household not accepted. Program will accept -2 most current paycheck stubs or earning statements for all working members of your household -Last year's federal Individual Income Tax Return (1040) -Social Security income, pension, and other income statements -W-2 or 1099 forms -Unemployment benefit statements LVM with call back number. -Kori Dickinson CPhT. Pharmacy Patient Assistance Team documented in this encounter [facility] 03-08-2024 Telephone encounter Note [facility] Ambulatory Pharmacy Anticoagulation Clinic Anticoagulation Episode Summary Anticoagulation Care Providers Provider Role Specialty Phone number Estephania Rodriguez MD Referring Internal Medicine [phone] Wendy Forte is a 69 year old year old female patient being evaluated today for a Lab INR. Patient is currently on the following anticoagulant(s) Warfarin. Labs PT INR (no units) Date Value 12/13/2021 2.2 11/01/2021 2.2 10/15/2021 1.9 INR (no units) Date Value 03/07/2024 2.2 02/08/2024 1.5 01/06/2024 3.1 Hemoglobin (g/dL) Date Value 09/09/2023 12.9 07/31/2021 10.4 Hematocrit (%) Date Value 09/09/2023 40.6 07/31/2021 32.1 Platelet Count (k/uL) Date Value 09/09/2023 270 07/31/2021 405 Creatinine (mg/dL) Date Value 02/08/2024 0.74 09/09/2023 0.69 06/10/2023 0.75 07/31/2021 0.65 11/12/2020 0.71 07/03/2020 0.65 Bilirubin, Total (mg/dL) Date Value 09/09/2023 0.5 07/31/2021 0.4 ALT (U/L) Date Value 09/09/2023 32 07/31/2021 16 AST (U/L) Date Value 09/09/2023 26 07/31/2021 17 CrCl cannot be calculated (Unknown ideal weight.). 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: Anticoagulation Episode Summary Current INR goal: 2.0-3.0 Assessment: INR result of 2.2 is therapeutic Plan: Current Warfarin Dosing As of 03/08/2024 Full warfarin instructions: 1.25 mg every Alma; 2.5 mg all other days Left voice message Advised patient to continue current weekly dose as noted above Next lab INR check scheduled on 04/11/2024 Rene Schumacher RPh Clinical Pharmacist, Pharmacy Anticoagulation Clinic Pharmacy Anticoagulation Clinic Pager: [phone]. [facility] 03-08-2024 Miscellaneous Notes [facility] Ambulatory Pharmacy Anticoagulation Clinic Anticoagulation Episode Summary Anticoagulation Care Providers Provider Role Specialty Phone number Estephania Rodriguez MD Referring Internal Medicine [phone] Wendy Forte is a 69 year old year old female patient being evaluated today for a Lab INR. Patient is currently on the following anticoagulant(s) Warfarin. Labs PT INR (no units) Date Value 12/13/2021 2.2 11/01/2021 2.2 10/15/2021 1.9 INR (no units) Date Value 03/07/2024 2.2 02/08/2024 1.5 01/06/2024 3.1 Hemoglobin (g/dL) Date Value 09/09/2023 12.9 07/31/2021 10.4 Hematocrit (%) Date Value 09/09/2023 40.6 07/31/2021 32.1 Platelet Count (k/uL) Date Value 09/09/2023 270 07/31/2021 405 Creatinine (mg/dL) Date Value 02/08/2024 0.74 09/09/2023 0.69 06/10/2023 0.75 07/31/2021 0.65 11/12/2020 0.71 07/03/2020 0.65 Bilirubin, Total (mg/dL) Date Value 09/09/2023 0.5 07/31/2021 0.4 ALT (U/L) Date Value 09/09/2023 32 07/31/2021 16 AST (U/L) Date Value 09/09/2023 26 07/31/2021 17 CrCl cannot be calculated (Unknown ideal weight.). 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: Anticoagulation Episode Summary Current INR goal: 2.0-3.0 Assessment: INR result of 2.2 is therapeutic Plan: Current Warfarin Dosing As of 03/08/2024 Full warfarin instructions: 1.25 mg every Alma; 2.5 mg all other days Left voice message Advised patient to continue current weekly dose as noted above Next lab INR check scheduled on 04/11/2024 Rene Schumacher RPh Clinical Pharmacist, Pharmacy Anticoagulation Clinic Pharmacy Anticoagulation Clinic Pager: [phone]. documented in this encounter [facility] 02-10-2024 Telephone encounter Note K levels WNL since stopping potassium supplementation. OK to continue without supplementation at this time. Called patient to inform. Confirmed she has NOT been taking potassium supplement. She appreciated the call. Jake Edwards PharmD, [facility] Primary Care Clinical Pharmacist [facility] Work Phone: 02-10-2024 Miscellaneous Notes K levels WNL since stopping potassium supplementation. OK to continue without supplementation at this time. Called patient to inform. Confirmed she has NOT been taking potassium supplement. She appreciated the call. Jake Edwards PharmD, [facility] Primary Care Clinical Pharmacist documented in this encounter [facility] 02-10-2024 Telephone encounter Note Germania spoke with patient and patient income has been scanned to patient chart on 02/08/24. Please see scanned income to assist with patient assistance process. Patient currently working with Pharmacy for help applying to [employer]. [facility] 02-10-2024 Miscellaneous Notes Germania spoke with patient and patient income has been scanned to patient chart on 02/08/24. Please see scanned income to assist with patient assistance process. Patient currently working with Pharmacy for help applying to [employer]. documented in this encounter [facility] 02-09-2024 Telephone encounter Note [facility] Ambulatory Pharmacy Anticoagulation Clinic Anticoagulation Episode Summary Anticoagulation Care Providers Provider Role Specialty Phone number Estephania Rodriguez MD Referring Internal Medicine [phone] Wendy Forte is a 68 year old year old female patient being evaluated today for a Lab INR. Patient is currently on the following anticoagulant(s) Warfarin. Labs PT INR (no units) Date Value 12/13/2021 2.2 11/01/2021 2.2 10/15/2021 1.9 INR (no units) Date Value 02/08/2024 1.5 01/06/2024 3.1 12/03/2023 2.2 Hemoglobin (g/dL) Date Value 09/09/2023 12.9 07/31/2021 10.4 Hematocrit (%) Date Value 09/09/2023 40.6 07/31/2021 32.1 Platelet Count (k/uL) Date Value 09/09/2023 270 07/31/2021 405 Creatinine (mg/dL) Date Value 02/08/2024 0.74 09/09/2023 0.69 06/10/2023 0.75 07/31/2021 0.65 11/12/2020 0.71 07/03/2020 0.65 Bilirubin, Total (mg/dL) Date Value 09/09/2023 0.5 07/31/2021 0.4 ALT (U/L) Date Value 09/09/2023 32 07/31/2021 16 AST (U/L) Date Value 09/09/2023 26 07/31/2021 17 CrCl cannot be calculated (Unknown ideal weight.). 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 [facility] 02-09-2024 Miscellaneous Notes [facility] Ambulatory Pharmacy Anticoagulation Clinic Anticoagulation Episode Summary Anticoagulation Care Providers Provider Role Specialty Phone number Estephania Rodriguez MD Referring Internal Medicine [phone] Wendy Forte is a 68 year old year old female patient being evaluated today for a Lab INR. Patient is currently on the following anticoagulant(s) Warfarin. Labs PT INR (no units) Date Value 12/13/2021 2.2 11/01/2021 2.2 10/15/2021 1.9 INR (no units) Date Value 02/08/2024 1.5 01/06/2024 3.1 12/03/2023 2.2 Hemoglobin (g/dL) Date Value 09/09/2023 12.9 07/31/2021 10.4 Hematocrit (%) Date Value 09/09/2023 40.6 07/31/2021 32.1 Platelet Count (k/uL) Date Value 09/09/2023 270 07/31/2021 405 Creatinine (mg/dL) Date Value 02/08/2024 0.74 09/09/2023 0.69 06/10/2023 0.75 07/31/2021 0.65 11/12/2020 0.71 07/03/2020 0.65 Bilirubin, Total (mg/dL) Date Value 09/09/2023 0.5 07/31/2021 0.4 ALT (U/L) Date Value 09/09/2023 32 07/31/2021 16 AST (U/L) Date Value 09/09/2023 26 07/31/2021 17 CrCl cannot be calculated (Unknown ideal weight.). 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: half-way (current) use of anticoagulants Anticoagulation Episode Summary Current INR goal: 2.0-3.0 Assessment: INR result of 1.5 is SUBtherapeutic due to: unknown cause - did not speak to patient Plan: Current Warfarin Dosing As of 02/09/2024 Full warfarin instructions: 1.25 mg every Alma; 2.5 mg all other days Left voice message Advised patient to increase dose for 1 day only then resume weekly regimen Next lab INR check scheduled on 02/23/2024 Rene Schumacher RPh Clinical Pharmacist, Pharmacy Anticoagulation Clinic Pharmacy Anticoagulation Clinic Pager: [phone]. documented in this encounter [facility] 01-25-2024 History of Present illness Narrative Primary Care Pharmacy Visit CC (Reason for Consult): Diabetes (E11.65) Type 2 diabetes mellitus with hyperglycemia, without long-term current use of insulin (HCC) (primary encounter diagnosis) Goal: A1c < 7% Last Collaborating Provider Visit: 09/09/23 Wendy Forte is a 68 year old female presenting for follow up visit telephone call. Patient consents to pharmacy collaborative practice agreement. Interim Events: 09/09: no med changes at PCP visit 09/28: treated for UTI and overactive bladder 11/11: Referred to PharmD for DM mngt through panel mngt review 11/24: Started PAP application for ozempic. Med review due at follow up visit. 12/22: Basaglar increased; Ozempic PAP application still pending 12/30: pt advised to HOLD potassium and get f/up labs in 2 weeks HPI: She has the income docs with her for Ozempic PAP, planning to drop them off the first week of February when she goes to get bloodwork. Has not been taking potassium. Not noticing any sx. No palpitations. No new sx. Getting labs to check K+ levels next week. Current DM Medications: Metformin ER 500mg tabs - 1000mg BID Insulin glargine (Basaglar) 36 units at bedtime Insulin lispro (Humalog) 6 units with breakfast and 6 units with dinner Past DM medications: Glipizide Glimepiride SMBGS (Fingersticks) Bgs usually in 200s; FBGs usually ~150s-160s; afternoon readings usually mid-200s (nothing >260); no lows Preventative Medications: On VICTOR MANUEL/ARB: No On Statin: Yes ROS: Patient denies CP, SOB, CRUZ, blurred vision, dizziness or lightheadedness Patient denies symptoms of hypoglycemia (sweating, anxiety, palpitations, hunger, and tremor) Patient denies symptoms of hyperglycemia (polyuria, polydipsia, polyphagia) Patient denies potential medication adverse effects DIET/EXERCISE/SOCIAL Hx: Usually eating 3 meals/day, sometimes 2; largest meal is supper Breakfast: cereal (Special K); sometimes 1 piece toast with PB; boiled egg; piece of fruit Lunch: more of a snack - cheese or yogurt Dinner: last night had buffet (special dinner for granddaughter's graduation); usually protein and vegetable with salad Beverages: water Exercise: walking around the house a lot Tobacco: none Alcohol: none Illicits: none MEDICATIONS: Pill bottles are not present. Adherence: denies missed doses. Pharmacy: [facility] [address] [place] [phone] [phone] Rx coverage: Payor: MEDICARE / Plan: MEDICARE A AND B / Product Type: Medicare / Medications affordable? Yes; insulins are through [facility] Diabetes Supplies: Yes Organization system: ACTIVE PROBLEM LIST Htn (Hypertension), Benign Hyperlipidemia Type II Diabetes Mellitus, Uncontrolled Urinary Frequency Panic Disorder Without Agoraphobia Gerd (Gastroesophageal Reflux Disease) Heart Palpitations Obesity, Morbid, Bmi 40.0-49.9 ([facility]) Type 2 Diabetes Mellitus With Hyperglycemia, Without Long-Term Current Use of Insulin ([facility]) Paf (Paroxysmal Atrial Fibrillation) ([facility]) 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 Recurrent Major Depressive Disorder, in Full Remission ([facility]) PAST MEDICAL HISTORY Diagnosis Date Adjustment disorder with depressed mood Bladder wall thickening Diverticulitis 2022 Mild Hyperlipidemia 06/13/2009 Mixed stress and urge incontinence Mixed stress and urge incontinence OAB (overactive bladder) Obesity, morbid, BMI 40.0-49.9 ([facility]) Other and unspecified hyperlipidemia Type II or unspecified type diabetes mellitus without mention of complication, not stated as uncontrolled Unspecified essential hypertension Urinary frequency Past medical history reviewed. ALLERGIES Allergen Reactions Sulfa (Sulfonamide * Rash BLISTERS Medication List Medication Directions Comments Action/Plan Biotin 10,000 mcg cap Take 10,000 mcg by mouth once daily. With Keratin 100 MG blood sugar diagnostic (FREESTYLE TEST) test strip Check 4 time daily as directed. DX E11.65, Insulin: Yes Patient taking differently: Check 4 time daily as directed. DX E11.65, Insulin: Yes Checks sugars about three times daily per patient. clopidogrel (PLAVIX) 75 mg tablet Take 1 tablet by mouth once daily. COMPOUNDED PRESCRIPTION Diabetic shoes with insoles. DX E11.65, E11,49 COMPOUNDED PRESCRIPTION Hinged knee brace for left knee--Don Janine OA Reaction Web Knee brace. Dx Knee pain and decreased mobility secondary to degenerative arthritis 715.96 Patient not taking: Reported on 10/06/2022 COMPOUNDED PRESCRIPTION ascensia lancgustavo estradiol (ESTRACE) 0.01 % (0.1 mg/gram) vaginal cream Use 1 g vaginally two times a week. Apply before bed. Apply a pea-sized amount of cream to the vagina/vulva. Patient taking differently: Use 1 g vaginally two times a week. Apply before bed. Apply a pea-sized amount of cream to the vagina/vulva two times a week as needed. FLUoxetine (PROZAC) 40 mg capsule Take 1 capsule by mouth once daily. IFEREX 150 150 mg iron capsule Take 1 capsule by mouth once daily. insulin glargine (LANTUS SOLOSTAR U-100 INSULIN) 100 unit/mL (3 mL) Inject 33 Units subcutaneously daily at bedtime. Patient Assistance Med insulin glargine 100 unit/mL (3 mL) Inject 36 Units subcutaneously daily at bedtime. Patient assistance medication insulin lispro (HUMALOG KWIKPEN INSULIN) 100 unit/mL Inject 6 Units subcutaneously daily with breakfast AND 6 Units daily with dinner. Patient assistance medication. insulin needles, DISPOSABLE, (PEN NEEDLE) 31 gauge x 5/16 ndle Use one needle per dose. One per day. L. acidophilus/Bifid. animalis (DAILY PROBIOTIC ORAL) Take 1 capsule by mouth once daily. Lancets lancets Test blood sugar(s) 4 times daily as directed. Dx: diabetes E11.65. Insulin: Yes Patient not taking: Reported on 09/28/2023 metFORMIN ER (GLUCOPHAGE XR) 500 mg 24 hr tablet Take 2 tablets by mouth two times a day with meals. metoprolol tartrate, short acting, (LOPRESSOR) 50 mg tablet Take 1 tablet by mouth two times a day. potassium chloride ER (KLOR-CON) 20 mEq tablet Take 2 tablets by mouth two times a day. rosuvastatin (CRESTOR) 5 mg tablet Take 1 tablet by mouth daily at bedtime. semaglutide (OZEMPIC) 0.25 mg or 0.5 mg (2 mg/3 mL) pen Take 0.25mg weekly for 4 weeks then take 0.5mg weekly thereafter. NOT TAKING as of 3..24 --> started application through [employer]. Patient not taking: Reported on 12/23/2023 semaglutide (OZEMPIC) 0.25 mg or 0.5 mg (2 mg/3 mL) pen Inject 0.25mg weekly for 4 weeks, then increase dose to 0.5mg weekly thereafter. warfarin (COUMADIN) 2.5 mg tablet Start with 2.5 mg daily except 1.25mg Thurs Exam: There were no vitals taken for this visit. Last 3 Encounter BP Readings: Date: BP: 09/28/2023 150/86 09/09/2023 148/82 05/18/2023 138/78 Wt: 114.4 kg (252 lb 3.2 oz) BMI: 41.97 kg/(m^2) LABS: Reviewed Lab Results Component Value Date HBA1C 9.6 09/09/2023 HBA1C 8.9 06/10/2023 HBA1C 9.2 10/06/2022 HBA1C 8.2 09/20/2021 HBA1C 11.0 05/29/2021 HBA1C 10.3 11/12/2020 CMP: Glucose 301 09/09/2023 BUN 19 09/09/2023 Creatinine 0.69 09/09/2023 Sodium 136 09/09/2023 Potassium 5.1 09/09/2023 Chloride 99 09/09/2023 CO2 26 09/09/2023 Protein, Total 8.1 09/09/2023 Albumin 3.9 09/09/2023 Calcium 9.9 09/09/2023 Alkaline Phosphatase 123 09/09/2023 Bilirubin, Total 0.5 09/09/2023 AST 26 09/09/2023 ALT 32 09/09/2023 No results found for: GFR CrCl cannot be calculated (Unknown ideal weight.). Lab Results Component Value Date CHOL 160 06/10/2023 CHOL 148 05/29/2021 LDL 75 06/10/2023 LDL 69 05/29/2021 HDL 34 06/10/2023 HDL 34 05/29/2021 TG 254 06/10/2023 TG 225 05/29/2021 The 10-year ASCVD risk score (Zeinab MADERA, et al., 2019) is: 26.1% Values used to calculate the score: Age: 68 years Sex: Female Is Non- : No Diabetic: Yes Tobacco smoker: No Systolic Blood Pressure: 150 mmHg Is BP treated: Yes HDL Cholesterol: 34 mg/dL Total Cholesterol: 160 mg/dL Albumin/Creat Ratio (mg/g) Date Value 07/07/2023 162 (H) PHARMACOTHERAPY ASSESSMENT/PLAN: 1. Type 2 diabetes mellitus with hyperglycemia, without long-term current use of insulin ([facility]) - ICD9: 250.00, 790.29, ICD10: E11.65 A1c goal < 7%; uncontrolled (last A1c 9.6%); SMBGs elevated; afternoon PPG often elevated >200 so will add mealtime insulin with lunch; awaiting completion of Ozempic PAP application; f/up in 1 mo INITIATE Humalog 4 units with lunch (new regimen is 6 units with breakfast, 4 units with lunch, and 6 units with dinner) Continue other regimen Patient planning to drop off income documents to clinic at the beginning of February. Advised her to contact me if she receives Ozempic shipment so I can do counseling on med before initiation and evaluate if insulin dose adjustments need made Follow-up Patient is scheduled to see PCP team on 03/15. Patient to have f/up with PharmD team on 03/23. Patient verbalized understanding of instructions. Jake Edwards PharmD, [facility] Primary Care Clinical Pharmacist Time spent: 26 mins documented in this encounter [facility] 01-19-2024 Telephone encounter Note Sw spoke with patient and she reports that she will bring her income in to beginning of February. Sw will then have income documents scanned to patient chart and let [facility] know when available. [facility] 01-19-2024 Miscellaneous Notes Sw spoke with patient and she reports that she will bring her income in to beginning of February. Sw will then have income documents scanned to patient chart and let [facility] know when available. Sw left 2nd message for patient to return call to discuss [employer] needing patient income for Magali Nordisk PAP. does not have copies of patient income. Sw received message from [employer] in regards to patient income documentation for Ozempic PAP. Sw does not have patient income. Patient had applied to [facility] and wrote income on forms. Patient did not have to attach income, so not income forms were sent to [facility]. Sw left patient message to return Sw call to discuss not having copies of income statement. Patient will need to bring them in to send to nursing tech. documented in this encounter [facility] 01-19-2024 Telephone encounter Note Sw left 2nd message for patient to return Sw call to discuss [employer] needing patient income for Magali Nordisk PAP. Sw does not have copies of patient income. [facility] 01-14-2024 Telephone encounter Note Sw received message from [employer] in regards to patient income documentation for Ozempic PAP. Sw does not have patient income. Patient had applied to [facility] and wrote income on forms. Patient did not have to attach income, so not income forms were sent to [facility]. Sw left patient message to return Sw call to discuss not having copies of income statement. Patient will need to bring them in to send to nursing tech. 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 STATUS OF APPLICATION: Can be viewed under the encounter Additional Documentation > SmartForms: [facility] PATIENT ASSISTANCE Completed forms sent to providers for signatures and/or to collision worker will be available under Scanned Documents. The finalized form can be found under PAP_Medication Name_Complete. PAP Account Administrator Team will submit and track progress on the completed PAP application. Please do NOT fax to collision worker unless directed by the PAP Account Administrator Team. Please see SmartForm described above for specifics. Please DO NOT close this encounter. Sent to patient: Magali Markerly is requiring proof of income for this patient's application. I reached out to the patient and she stated that Radha from Social Work has copies of that information. Sent a [employer] chat message to SW asking if I could have copies of this information. Sent to collision worker: Need POI to send to collision worker. Per SW, patient stated she would bring in the POI at the beginning of February. documented in this encounter [facility] 01-07-2024 Telephone encounter Note [facility] Ambulatory Pharmacy Anticoagulation Clinic Anticoagulation Episode Summary Anticoagulation Care Providers Provider Role Specialty Phone number Estephania Rodriguez MD Referring Internal Medicine [phone] Wendy Forte is a 68 year old year old female patient being evaluated today for a Lab INR. Patient is currently on the following anticoagulant(s) Warfarin. Labs PT INR (no units) Date Value 12/13/2021 2.2 11/01/2021 2.2 10/15/2021 1.9 INR (no units) Date Value 01/06/2024 3.1 12/03/2023 2.2 11/16/2023 2.4 Hemoglobin (g/dL) Date Value 09/09/2023 12.9 07/31/2021 10.4 Hematocrit (%) Date Value 09/09/2023 40.6 07/31/2021 32.1 Platelet Count (k/uL) Date Value 09/09/2023 270 07/31/2021 405 Creatinine (mg/dL) Date Value 09/09/2023 0.69 06/10/2023 0.75 10/06/2022 0.77 07/31/2021 0.65 11/12/2020 0.71 07/03/2020 0.65 Bilirubin, Total (mg/dL) Date Value 09/09/2023 0.5 07/31/2021 0.4 ALT (U/L) Date Value 09/09/2023 32 07/31/2021 16 AST (U/L) Date Value 09/09/2023 26 07/31/2021 17 CrCl cannot be calculated (Unknown ideal weight.). 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 Patient denies need for refills. Mariam Ellington RPh Clinical Pharmacist, Pharmacy Anticoagulation Clinic Pharmacy Anticoagulation Clinic Pager: [phone]. [facility] 01-07-2024 Miscellaneous Notes [facility] Ambulatory Pharmacy Anticoagulation Clinic Anticoagulation Episode Summary Anticoagulation Care Providers Provider Role Specialty Phone number Estephania Rodriguez MD Referring Internal Medicine [phone] Wendy Forte is a 68 year old year old female patient being evaluated today for a Lab INR. Patient is currently on the following anticoagulant(s) Warfarin. Labs PT INR (no units) Date Value 12/13/2021 2.2 11/01/2021 2.2 10/15/2021 1.9 INR (no units) Date Value 01/06/2024 3.1 12/03/2023 2.2 11/16/2023 2.4 Hemoglobin (g/dL) Date Value 09/09/2023 12.9 07/31/2021 10.4 Hematocrit (%) Date Value 09/09/2023 40.6 07/31/2021 32.1 Platelet Count (k/uL) Date Value 09/09/2023 270 07/31/2021 405 Creatinine (mg/dL) Date Value 09/09/2023 0.69 06/10/2023 0.75 10/06/2022 0.77 07/31/2021 0.65 11/12/2020 0.71 07/03/2020 0.65 Bilirubin, Total (mg/dL) Date Value 09/09/2023 0.5 07/31/2021 0.4 ALT (U/L) Date Value 09/09/2023 32 07/31/2021 16 AST (U/L) Date Value 09/09/2023 26 07/31/2021 17 CrCl cannot be calculated (Unknown ideal weight.). 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 Patient denies need for refills. Mariam Ellington RPh Clinical Pharmacist, Pharmacy Anticoagulation Clinic Pharmacy Anticoagulation Clinic Pager: [phone]. documented in this encounter [facility] 12-31-2023 Telephone encounter Note Summary: Medication Follow Up During PharmD visit on 12/22, patient expressed concern about dosage form potassium supplement due to difficulty swallowing potassium pill. Reviewed previous CMPs and noticed K+ levels on the higher end of normal range. Reached out to PCP team regarding need for ongoing potassium supplementation. PCP team agreeable to hold supplement for two weeks with repeat BMP (please refer to communications from 12/22 encounter for more information). Called patient to discuss holding potassium but unable to reach patient. Will follow up in a week. [facility] 12-31-2023 Miscellaneous Notes Summary: Medication Follow Up During PharmD visit on 12/22, patient expressed concern about dosage form potassium supplement due to difficulty swallowing potassium pill. Reviewed previous CMPs and noticed K+ levels on the higher end of normal range. Reached out to PCP team regarding need for ongoing potassium supplementation. PCP team agreeable to hold supplement for two weeks with repeat BMP (please refer to communications from 12/22 encounter for more information). Called patient to discuss holding potassium but unable to reach patient. Will follow up in a week. documented in this encounter [facility] 12-24-2023 Miscellaneous Notes Noted. Patient was asked to notify PharmD of Ozempic cost so counseling could be provided if affordable. We discussed that Ozempic would likely be too expensive so insulin was increased and pharmacy team will pursue PAP application. Patient made aware of this plan during yesterday's visit so no further f/up needed at this time. Jake Edwards PharmD, [facility] Primary Care Clinical Pharmacist Pt called and had virtual apt yesterday with Jake Edwards. Prescription for Ozempic was sent to the pharmacy. he cost for this is $991.00. Pt did not get the prescription. Please advise pt next step. Estela Clifton LPN documented in this encounter [facility] 12-23-2023 History of Present illness Narrative Primary Care Pharmacy Visit CC (Reason for Consult): (E11.65) Type 2 diabetes mellitus with hyperglycemia, without long-term current use of insulin (HCC) (primary encounter diagnosis) (E11.69, Z79.4) Type 2 diabetes mellitus with other specified complication, with long-term current use of insulin (HCC) (Z79.899) Medication management Goal(s): A1c<7% Last Collaborating Provider Visit: 09/09/23 Wendy Forte is a 68 year old female presenting for follow up visit telephone call. Patient consents to pharmacy collaborative practice agreement. . Interim Events: 09/09: no med changes at PCP visit 09/28: treated for UTI and overactive bladder 11/11: Referred to PharmD for DM mngt through panel mngt review 11/24: Started PAP application for ozempic. Med review due at follow up visit. Last Pharmacy Visit: 11/25/23 HPI: -Patient reports to checking blood sugar twice a day but notes that her blood sugar has overall been doing well -Patient has not received any Ozempic, pending patient assistance program -Reports no issues/side effects with current medications -Denies any signs or symptoms of hyperglycemia or hypoglycemia -Patient asked regarding alternatives to potassium supplements as they are quite large to take Current DM Medications: Ozempic: 0.5 mg once weekly -->Has not started, pending PAP Insulin glargine (Lantus) 33 units daily at bedtime Insulin lispro (humalog) inject 5 units subcutaneously with breakfast and 6 units daily with dinner Metformin ER 500 m tablets by mouth two times a day Previously Trialed DM Meds: Glipizide/glimepiride Diet: Breakfast (or brunch): 1/2 banana, milk (trying to limit it due to the sugar--> staying away from almond milk), boiled eggs, some cheese Lunch: varies Dinner: biggest meal of the day Notes trying to eating a more greens and keeping it consistent for warfarin GLYCEMIC CONTROL: Glucometer present at visit: No Hypoglycemia: No SMBGS (Fingersticks) -Fasting readings: 150s in the morning -Afternoon (post prandial): 193 has been the highest -Post prandial/Dinner: 160s Past medical history reviewed. ALLERGIES Allergen Reactions Sulfa (Sulfonamide * Rash BLISTERS Current Outpatient Medications Medication Sig Dispense Refill L. acidophilus/Bifid. animalis (DAILY PROBIOTIC ORAL) Take 1 capsule by mouth once daily. FLUoxetine (PROZAC) 40 mg capsule Take 1 capsule by mouth once daily. 90 capsule 3 potassium chloride ER (KLOR-CON) 20 mEq tablet Take 2 tablets by mouth two times a day. 360 tablet 3 metoprolol tartrate, short acting, (LOPRESSOR) 50 mg tablet Take 1 tablet by mouth two times a day. 180 tablet 3 IFEREX 150 150 mg iron capsule Take 1 capsule by mouth once daily. 90 capsule 3 metFORMIN ER (GLUCOPHAGE XR) 500 mg 24 hr tablet Take 2 tablets by mouth two times a day with meals. 360 tablet 3 warfarin (COUMADIN) 2.5 mg tablet Start with 2.5 mg daily except 1.25mg Thurs 90 tablet 3 rosuvastatin (CRESTOR) 5 mg tablet Take 1 tablet by mouth daily at bedtime. 90 tablet 3 clopidogrel (PLAVIX) 75 mg tablet Take 1 tablet by mouth once daily. 90 tablet 3 estradiol (ESTRACE) 0.01 % (0.1 mg/gram) vaginal cream Use 1 g vaginally two times a week. Apply before bed. Apply a pea-sized amount of cream to the vagina/vulva. (Patient taking differently: Use 1 g vaginally two times a week. Apply before bed. Apply a pea-sized amount of cream to the vagina/vulva two times a week as needed.) 42.5 g 1 Biotin 10,000 mcg cap Take 10,000 mcg by mouth once daily. With Keratin 100 MG insulin lispro (HUMALOG KWIKPEN INSULIN) 100 unit/mL Inject 6 Units subcutaneously daily with breakfast AND 6 Units daily with dinner. Patient assistance medication. 15 mL 1 insulin glargine 100 unit/mL (3 mL) Inject 36 Units subcutaneously daily at bedtime. Patient assistance medication 45 mL 2 semaglutide (OZEMPIC) 0.25 mg or 0.5 mg (2 mg/3 mL) pen Inject 0.25mg weekly for 4 weeks, then increase dose to 0.5mg weekly thereafter. 3 mL 5 semaglutide (OZEMPIC) 0.25 mg or 0.5 mg (2 mg/3 mL) pen Take 0.25mg weekly for 4 weeks then take 0.5mg weekly thereafter. NOT TAKING as of 3..24 --> started application through [employer]. (Patient not taking: Reported on 12/23/2023) insulin glargine (LANTUS SOLOSTAR U-100 INSULIN) 100 unit/mL (3 mL) Inject 33 Units subcutaneously daily at bedtime. Patient Assistance Med blood sugar diagnostic (FREESTYLE TEST) test strip Check 4 time daily as directed. DX E11.65, Insulin: Yes (Patient taking differently: Check 4 time daily as directed. DX E11.65, Insulin: Yes Checks sugars about three times daily per patient.) 350 Strip 3 Lancets lancets Test blood sugar(s) 4 times daily as directed. Dx: diabetes E11.65. Insulin: Yes (Patient not taking: Reported on 09/28/2023) 350 Each 3 insulin needles, DISPOSABLE, (PEN NEEDLE) 31 gauge x 5/16 ndle Use one needle per dose. One per day. 100 Each 11 COMPOUNDED PRESCRIPTION Diabetic shoes with insoles. DX E11.65, E11,49 1 Each 0 COMPOUNDED PRESCRIPTION Hinged knee brace for left knee--Don Janine OA Reaction Web Knee brace. Dx Knee pain and decreased mobility secondary to degenerative arthritis 715.96 (Patient not taking: Reported on 10/06/2022) 1 Each 1 COMPOUNDED PRESCRIPTION ascensia lancets 3 boxes 3 No current facility-administered medications for this visit. Pill bottles are not present. Adherence: denies missed doses. Rx coverage: Payor: MEDICARE / Plan: MEDICARE A AND B / Product Type: Medicare / Medications affordable? Yes No issues getting medications and no missed doses PHARMACOTHERAPY PREVENTATIVE MEDS: On VICTOR MANUEL/ARB: No On Statin: Yes EXAM: There were no vitals taken for this visit. Last 3 Encounter BP Readings: Date: BP: 09/28/2023 150/86 09/09/2023 148/82 05/18/2023 138/78 Wt: 114.4 kg (252 lb 3.2 oz) BMI: 41.97 kg/(m^2) LABS: Lab Results Component Value Date HBA1C 9.6 09/09/2023 HBA1C 8.9 06/10/2023 HBA1C 9.2 10/06/2022 HBA1C 8.2 09/20/2021 HBA1C 11.0 05/29/2021 HBA1C 10.3 11/12/2020 Glucose 301 09/09/2023 BUN 19 09/09/2023 Creatinine 0.69 09/09/2023 Sodium 136 09/09/2023 Potassium 5.1 09/09/2023 Chloride 99 09/09/2023 CO2 26 09/09/2023 Protein, Total 8.1 09/09/2023 Albumin 3.9 09/09/2023 Calcium 9.9 09/09/2023 Alkaline Phosphatase 123 09/09/2023 Bilirubin, Total 0.5 09/09/2023 AST 26 09/09/2023 ALT 32 09/09/2023 Lab Results Component Value Date CHOL 160 06/10/2023 CHOL 148 05/29/2021 LDL 75 06/10/2023 LDL 69 05/29/2021 HDL 34 06/10/2023 HDL 34 05/29/2021 TG 254 06/10/2023 TG 225 05/29/2021 Albumin/Creat Ratio (mg/g) Date Value 07/07/2023 162 (H) eGFR-All Other Races (.) Date Value 07/31/2021 >60 Estimated Glomerular Filtration Rate (mL/min/1.73m ) Date Value 09/09/2023 95 ASSESSMENT/PLAN: 1. Type 2 diabetes mellitus with hyperglycemia, without long-term current use of insulin (HCC) - ICD9: 250.00, 790.29, ICD10: E11.65 - Worsening control - Barriers to control: cost of medication (Ozempic, currently pending PAP) - Continue current medications - Increase Insulin glargine (Lantus/Basaglar/Toujeo) to 36 units once daily (Sent Updated Rx) - INSULIN GLARGINE (U-100) 100 UNIT/ML (3 ML) SUBCUTANEOUS PEN - Will follow up with pharmacy regarding cost of Ozempic and will relay cost to patient - Statin prescribed - rosuvastatin - Blood glucose monitoring on a twice daily schedule - Counseled on healthy diet and regular exercise 2. Medication management - ICD9: V58.69, ICD10: Z79.899 - Patient asked if there were any alternatives to the potassium tablet as it is difficult to swallow --> plan to follow up with patient regarding dissolving tablet and alternatives such as Klor Con 20 mEq powder packet, potassium sprinkle capsules that can be opened (only comes in 8 and 10 mEq dose), and potassium chloride solutions. 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 Will reach out to PCP regarding ongoing need for potassium supplementation or alternative formulations. Follow Up: Next PCP visit:03/15/[address] Karli Douglas PharmD visit: 01/25/24 @ 1:30 pm Tania Bolton PharmD, [facility] PGY1 Parking Worker I spent a total of 30 minutes on the date of the service which included completing clinical documentation, counseling and educating the patient/family/caregiver, and ordering medications, tests, or procedures. The patient's case was discussed with the vice president lending who interviewed the patient. Bobby elements of history confirmed during office visit. The progress note reflects my input and comments. Jake Edwards PharmD, [facility] Primary Care Clinical Pharmacist documented in this encounter [facility] 12-01-2023 Miscellaneous Notes [facility] PAP rep notes that patient application was approved on 11/23/23. Rep reports that both Basaglar and Humalog have been shipped to patient home on 11/30/23. Tracking number for Humalog [id number] and Basaglar tracking number [id number]. Sw was told that patient application is good through 11/22/2024. Sw called patient and updated her on this information. Patient thanked Sw for information and will watch for medication delivery. Patient called Sw to let Sw know that she received letter from [employer] stating some information is still missing on application. Patient noted that she was confused as she received a text message from [employer] noting that she was approved for assistance with her basaglar and humalog. Sw noted that she would call and check with [employer] and see what the issue is with patient application. documented in this encounter [facility] 11-25-2023 History of Present illness Narrative Primary Care Pharmacy Visit CC (Reason for Consult): Diabetes (E11.65) Type 2 diabetes mellitus with hyperglycemia, without long-term current use of insulin (HCC) (primary encounter diagnosis) Goal: A1c < 7% Last Collaborating Provider Visit: 09/09/23 Wendy Forte is a 68 year old female presenting for initial visit: This initial consult was conducted telephone call with the patient where the consult agreement was explained. The patient may decline or cancel the agreement at any time. After consideration, the patient consented to the pharmacy consult agreement and agreed to allow medications be collaboratively managed by a pharmacist. Interim Events: 09/09: no med changes at PCP visit 09/28: treated for UTI and overactive bladder 11/11: Referred to PharmD for DM mngt through panel mngt review HPI: Previously worked with [employer] years ago. Glad to get back with pharmacy. Likes phone calls because she doesn't drive. Feels diabetes control is up and down. Tries to be mindful with diet. Has a lot of issues with UTIs which also influences Bgs when not feeling well and on antibiotics. Personal goals: get Bgs improved; weight loss Working with GERMANIA Garcia, for [facility] application. Said she was approved for 2023. Awaiting shipment, has sufficient supply at home. Did have pancreatitis once in the past, later had gall bladder removed and no issues since. Sees eye doctor yearly. Current DM Medications: Metformin ER 500mg tabs - 1000mg BID Insulin glargine (Basaglar) 33 units daily Insulin lispro (Humalog) 6 units with breakfast and dinner Past DM medications: Ozempic (never started - didn't like reported ADEs) Glipizide/glimepiride SMBGS (Fingersticks) Checking Bgs about twice daily; currently seeing Bgs in the 150s; feels Bgs are doing well now, not on any antibiotics will go into 170s; FBGs No issues with lows; lowest BG was in 90s; has glucose tabs Preventative Medications: On VICTORM ANUEL/ARB: No On Statin: Yes DIET/EXERCISE/SOCIAL Hx: Breakfast: low calorie piece bread with peanut butter; sometimes cereal or oatmeal; yogurt Lunch: cheese stick or grapes or banana (eats a light lunch) Dinner: salads; meat; veggie Snacks: crackers or cheese sticks or fruit; tuna sandwich; cottage cheese Beverages: drinking 1/2 cranberry juice daily; water (supposed to drink 64 oz/day); 2x/week will have an iced coffee; switched milk from 2% to almond milk Exercise: uses a walker, has balance issues; leg and arm exercise in recliner Tobacco: none Alcohol: none Illicits: none MEDICATIONS: Pill bottles are not present. Adherence: denies missed doses. Pharmacy: [facility] [address] [place] [phone] Espinoza - [phone] Rx coverage: Payor: MEDICARE / Plan: MEDICARE A AND B / Product Type: Medicare / Medications affordable? 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 Recurrent Major Depressive Disorder, in Full Remission ([facility]) PAST MEDICAL HISTORY Diagnosis Date Adjustment disorder with depressed mood Bladder wall thickening Diverticulitis 2022 Mild Hyperlipidemia 06/13/2009 Mixed stress and urge incontinence Mixed stress and urge incontinence OAB (overactive bladder) Obesity, morbid, BMI 40.0-49.9 ([facility]) Other and unspecified hyperlipidemia Type II or unspecified type diabetes mellitus without mention of complication, not stated as uncontrolled Unspecified essential hypertension Urinary frequency Past medical history reviewed. ALLERGIES Allergen Reactions Sulfa (Sulfonamide * Rash BLISTERS Medication List Medication Directions Comments Action/Plan Biotin 10,000 mcg cap Take 10,000 mcg by mouth once daily. With Keratin 100 MG blood sugar diagnostic (FREESTYLE TEST) test strip Check 4 time daily as directed. DX E11.65, Insulin: Yes Patient taking differently: Check 4 time daily as directed. DX E11.65, Insulin: Yes Checks sugars about three times daily per patient. clopidogrel (PLAVIX) 75 mg tablet Take 1 tablet by mouth once daily. COMPOUNDED PRESCRIPTION Diabetic shoes with insoles. DX E11.65, E11,49 COMPOUNDED PRESCRIPTION Hinged knee brace for left knee--Don Janine OA Reaction Web Knee brace. Dx Knee pain and decreased mobility secondary to degenerative arthritis 715.96 Patient not taking: Reported on 10/06/2022 COMPOUNDED PRESCRIPTION ascensia lancets estradiol (ESTRACE) 0.01 % (0.1 mg/gram) vaginal cream Use 1 g vaginally two times a week. Apply before bed. Apply a pea-sized amount of cream to the vagina/vulva. FLUoxetine (PROZAC) 40 mg capsule Take 1 capsule by mouth once daily. IFEREX 150 150 mg iron capsule Take 1 capsule by mouth once daily. insulin glargine (LANTUS SOLOSTAR U-100 INSULIN) 100 unit/mL (3 mL) Inject 33 Units subcutaneously daily at bedtime. Patient Assistance Med duplicate insulin glargine (LANTUS SOLOSTAR, BASAGLAR KWIKPEN) 100 unit/mL (3 mL) Inject 33 Units subcutaneously daily at bedtime. Patient assistance medication taking insulin lispro (HUMALOG KWIKPEN INSULIN) 100 unit/mL Inject 6 Units subcutaneously daily with breakfast AND 6 Units daily with dinner. Patient assistance medication. taking insulin needles, DISPOSABLE, (PEN NEEDLE) 31 gauge x 5/16 ndle Use one needle per dose. One per day. supplies L. acidophilus/Bifid. animalis (DAILY PROBIOTIC ORAL) Take 1 capsule by mouth once daily. Lancets lancets Test blood sugar(s) 4 times daily as directed. Dx: diabetes E11.65. Insulin: Yes Patient not taking: Reported on 09/28/2023 metFORMIN ER (GLUCOPHAGE XR) 500 mg 24 hr tablet Take 2 tablets by mouth two times a day with meals. metoprolol tartrate, short acting, (LOPRESSOR) 50 mg tablet Take 1 tablet by mouth two times a day. potassium chloride ER (KLOR-CON) 20 mEq tablet Take 2 tablets by mouth two times a day. rosuvastatin (CRESTOR) 5 mg tablet Take 1 tablet by mouth daily at bedtime. warfarin (COUMADIN) 2.5 mg tablet Start with 2.5 mg daily except 1.25mg Th Exam: There were no vitals taken for this visit. Last 3 Encounter BP Readings: Date: BP: 09/28/2023 150/86 09/09/2023 148/82 05/18/2023 138/78 Wt: 114.4 kg (252 lb 3.2 oz) BMI: 41.97 kg/(m^2) LABS: Reviewed Lab Results Component Value Date HBA1C 9.6 09/09/2023 HBA1C 8.9 06/10/2023 HBA1C 9.2 10/06/2022 HBA1C 8.2 09/20/2021 HBA1C 11.0 05/29/2021 HBA1C 10.3 11/12/2020 CMP: Glucose 301 09/09/2023 BUN 19 09/09/2023 Creatinine 0.69 09/09/2023 Sodium 136 09/09/2023 Potassium 5.1 09/09/2023 Chloride 99 09/09/2023 CO2 26 09/09/2023 Protein, Total 8.1 09/09/2023 Albumin 3.9 09/09/2023 Calcium 9.9 09/09/2023 Alkaline Phosphatase 123 09/09/2023 Bilirubin, Total 0.5 09/09/2023 AST 26 09/09/2023 ALT 32 09/09/2023 No results found for: GFR Estimated Creatinine Clearance: 98.6 mL/min (based on SCr of 0.69 mg/dL). Lab Results Component Value Date CHOL 160 06/10/2023 CHOL 148 05/29/2021 LDL 75 06/10/2023 LDL 69 05/29/2021 HDL 34 06/10/2023 HDL 34 05/29/2021 TG 254 06/10/2023 TG 225 05/29/2021 The 10-year ASCVD risk score (Zeinab MADERA, et al., 2019) is: 26.1% Values used to calculate the score: Age: 68 years Sex: Female Is Non- : No Diabetic: Yes Tobacco smoker: No Systolic Blood Pressure: 150 mmHg Is BP treated: Yes HDL Cholesterol: 34 mg/dL Total Cholesterol: 160 mg/dL Albumin/Creat Ratio (mg/g) Date Value 07/07/2023 162 (H) PHARMACOTHERAPY ASSESSMENT/PLAN: 1. Type 2 diabetes mellitus with hyperglycemia, without long-term current use of insulin (HCC) - ICD9: 250.00, 790.29, ICD10: E11.65 (primary diagnosis) A1c goal < 7%; uncontrolled (last A1c 9.6%); SMBGs slightly above goal, though A1c suggests Bgs should be on avg ~230 mg/dL; personal goals of weight loss, DM control, and maintaining kidney health; not a candidate for SGLT2i given frequent UTIs; patient agreeable to trying Ozempic Continue current regimen Will start PAP application for Ozempic --> added to med list Patient reports gall bladder was removed, denies personal/family hx of MEN2/MTC; does have hx pancreatitis x 1 many years ago as a result of gall bladder issue --> no issues since cholecystectomy; we discussed the reported risk of medullary thyroid cancer/c-cell hyperplasia noted in rats who received clinically relevant doses of GLP1 agonist; risk of medullary thyroid cancer/c-cell hyperplasia has yet to be demonstrated in humans, especially in the current pharmacologic doses approved for use; potential for weight loss with improved glycemic control warrant trial of medication; patient made informed decision to try the medication; medication has been fully explained to patient, including risk of C-cell hyperplasia in the thyroid gland occurring in mice/rats, risk of pancreatitis or gall bladder issues, risk of hypoglycemia, side effects including nausea/vomiting; also discussed slightly increased complications associated with diabetic retinopathy that have been observed with Ozempic and Trulicity - risk may be increased in patients with a history of diabetic retinopathy at baseline Discussed potential kidney benefit with medication; studies ongoing Reviewed identification and mngt of hypoglycemia Advised checking PPG at least once daily - CONSULT TO PAP FOR AMBULATORY CLINIC PHARMACY - SEMAGLUTIDE 0.25 MG OR 0.5 MG (2 MG/3 ML) SUBCUTANEOUS PEN INJECTOR 2. Medication management - ICD9: V58.69, ICD10: Z79.899 Plan for med review at f/up visit Follow-up Patient to have f/up with PharmD team on 12/22. Patient verbalized understanding of instructions. Jake Edwards, Rusty, [facility] Primary Care Clinical Pharmacist documented in this encounter [facility] 11-24-2023 Miscellaneous Notes Patient called Sw to let her know that she received a text message from [facility] letting her know that her applications were approved for her basaglar and humalog. Patient reports that she will let Sw know when she receives medications. Germania will send note to Dr. Rodriguez office to update them on this information. documented in this encounter [facility] 11-19-2023 Miscellaneous Notes Pcp signed. This has been faxed to number on the form. To pcp to sign. Sw received [facility] PAP forms for patient Liliana and Dorota leon. Sw will take forms to Dr. Rodriguez office for prescription completion. Sw will also attach cover sheet so that once forms have been completed, they may be faxed to [facility] fax#[phone]. documented in this encounter [facility] 11-17-2023 Miscellaneous Notes [facility] Ambulatory Pharmacy Anticoagulation Clinic Anticoagulation Episode Summary Anticoagulation Care Providers Provider Role Specialty Phone number Estephania Rodriguez MD Referring Internal Medicine [phone] Wendy Forte is a 68 year old year old female patient being evaluated today for a Lab INR. Patient is currently on the following anticoagulant(s) Warfarin. Labs PT INR (no units) Date Value 12/13/2021 2.2 11/01/2021 2.2 10/15/2021 1.9 INR (no units) Date Value 11/16/2023 2.4 10/28/2023 3.4 09/28/2023 2.8 Hemoglobin (g/dL) Date Value 09/09/2023 12.9 07/31/2021 10.4 Hematocrit (%) Date Value 09/09/2023 40.6 07/31/2021 32.1 Platelet Count (k/uL) Date Value 09/09/2023 270 07/31/2021 405 Creatinine (mg/dL) Date Value 09/09/2023 0.69 06/10/2023 0.75 10/06/2022 0.77 07/31/2021 0.65 11/12/2020 0.71 07/03/2020 0.65 Bilirubin, Total (mg/dL) Date Value 09/09/2023 0.5 07/31/2021 0.4 ALT (U/L) Date Value 09/09/2023 32 07/31/2021 16 AST (U/L) Date Value 09/09/2023 26 07/31/2021 17 Estimated Creatinine Clearance: 98.6 mL/min (based on SCr of 0.69 mg/dL). 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: Anticoagulation Episode Summary Current INR goal: 2.0-3.0 Assessment: INR result of 2.4 is therapeutic Plan: Current Warfarin Dosing As of 11/17/2023 Full warfarin instructions: 1.25 mg every Alma; 2.5 mg all other days Called and spoke to patient/caregiver Advised patient to continue current weekly dose as noted above Next lab INR check scheduled on 12/08/2023 Patient verbalizes understanding of the plan. Rene Schumacher RPh Clinical Pharmacist, Pharmacy Anticoagulation Clinic Pharmacy Anticoagulation Clinic Pager: [phone]. documented in this encounter [facility] 11-16-2023 Miscellaneous Notes Called and spoke to patient to schedule Primary Care Pharmacy consult on 11/25/2023. Telephoned the patient to schedule a new Primary Care pharmacy appt. Left a message. documented in this encounter [facility] 11-12-2023 Miscellaneous Notes Patient called Germania to let Germania know that she has not received [facility] forms-Basaglar and Humalog that Germania mailed out on 11/06/23. Germania notes that she will leave forms in old medical records for patient to cotton picker tomorrow. Patient left message for Germania noting that she has not received [employer] application that Germania mailed out to patient on 11/06/23. Sw requested patient all Sw back to discuss this issue. documented in this encounter [facility] 11-12-2023 History of Present illness Narrative Primary Care Pharmacy Panel Management This patient has been identified through panel management efforts by the primary care pharmacy team. Please contact patient and schedule a pharmacy phone or virtual visit for diabetes management. Please use New Pharmacy, New Pharmacy Phone call, or Video Primary New visit types. Jake Edwards RPh documented in this encounter [facility] 11-06-2023 Miscellaneous Notes Patient reports that she spoke with [facility] and rep notes that they have new application out and want patient to fill out the new application forms. When Sw had spoke to [facility] on 10/19/23, Rep had noted that they were just in need of HIPAA form and Patient Agreement. No other issues were noted to Sw at that time. Germania printed off most recent [facility] application from their site. Sw will mail out to patient home. documented in this encounter [facility] 10-30-2023 Miscellaneous Notes [facility] Ambulatory Pharmacy Anticoagulation Clinic Anticoagulation Episode Summary Anticoagulation Care Providers Provider Role Specialty Phone number Estephania Rodriguez MD Referring Internal Medicine [phone] Wendy Forte is a 68 year old year old female patient being evaluated today for a Telemanagement visit. Patient is currently on the following anticoagulant(s) Warfarin. Labs PT INR (no units) Date Value 12/13/2021 2.2 11/01/2021 2.2 10/15/2021 1.9 INR (no units) Date Value 10/28/2023 3.4 09/28/2023 2.8 09/09/2023 2.6 Hemoglobin (g/dL) Date Value 09/09/2023 12.9 07/31/2021 10.4 Hematocrit (%) Date Value 09/09/2023 40.6 07/31/2021 32.1 Platelet Count (k/uL) Date Value 09/09/2023 270 07/31/2021 405 Creatinine (mg/dL) Date Value 09/09/2023 0.69 06/10/2023 0.75 10/06/2022 0.77 07/31/2021 0.65 11/12/2020 0.71 07/03/2020 0.65 Bilirubin, Total (mg/dL) Date Value 09/09/2023 0.5 07/31/2021 0.4 ALT (U/L) Date Value 09/09/2023 32 07/31/2021 16 AST (U/L) Date Value 09/09/2023 26 07/31/2021 17 Estimated Creatinine Clearance: 98.6 mL/min (based on SCr of 0.69 mg/dL). 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 Patient denies need for refills. Jigna Arana RPh Clinical Pharmacist, Pharmacy Anticoagulation Clinic Pharmacy Anticoagulation Clinic Pager: [phone]. Please see recent INR of 3.4. documented in this encounter [facility] 10-28-2023 History of Present illness Narrative Patient stopped to see Sw to sign HIPAA and patient agreement page for [employer] application for Basaglar and Humalog Kwikpen. Sw will fax forms to [facility] to see about assistance with insulins. documented in this encounter [facility] 10-20-2023 Miscellaneous Notes Patient called Sw and will stop in to see Sw next Thursday, 10/28 @4pm to sign HIPAA form for [employer] PAP for insulin. Sw left message to see if patient would be able to stop in and see Sw tomorrow at 10am to sign [facility] HIPAA form. Rec'd back. Pt needs to sign the HIPAA agreement. We do not have this. Pt did not provide insurance Patient called Germania to let her know that she has not heard back from [facility] in regards to her insulin Basaglar and Humalog. Germania will send message to see if by any chance Dr. Rodriguez has received any update via fax on status of application. If not, Germania will then call [facility] to check on application status. documented in this encounter [facility] 07-31-2023 Miscellaneous Notes [facility] Ambulatory Pharmacy Anticoagulation Clinic Anticoagulation Episode Summary Anticoagulation Care Providers Provider Role Specialty Phone number Estephania Rodriguez MD Referring Internal Medicine [phone] Wendy Forte is a 68 year old year old female patient being evaluated today for a Lab INR. Patient is currently on the following anticoagulant(s) Warfarin. Labs PT INR (no units) Date Value 12/13/2021 2.2 11/01/2021 2.2 10/15/2021 1.9 INR (no units) Date Value 07/29/2023 3.2 07/07/2023 3.6 06/10/2023 3.9 Hemoglobin (g/dL) Date Value 06/10/2023 11.7 07/31/2021 10.4 Hematocrit (%) Date Value 06/10/2023 37.7 07/31/2021 32.1 Platelet Count (k/uL) Date Value 06/10/2023 257 07/31/2021 405 Creatinine (mg/dL) Date Value 06/10/2023 0.75 10/06/2022 0.77 07/26/2022 0.83 07/31/2021 0.65 11/12/2020 0.71 07/03/2020 0.65 Bilirubin, Total (mg/dL) Date Value 06/10/2023 0.3 07/31/2021 0.4 ALT (U/L) Date Value 06/10/2023 47 07/31/2021 16 AST (U/L) Date Value 06/10/2023 44 07/31/2021 17 Estimated Creatinine Clearance: 87.9 mL/min (based on SCr of 0.75 mg/dL). 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 documented in this encounter [facility] 07-08-2023 Miscellaneous Notes [facility] Ambulatory Pharmacy Anticoagulation Clinic Anticoagulation Episode Summary Anticoagulation Care Providers Provider Role Specialty Phone number Estephania Rordiguez MD Referring Internal Medicine [phone] Wendy Forte is a 68 year old year old female patient being evaluated today for a Lab INR. Patient is currently on the following anticoagulant(s) Warfarin. Labs PT INR (no units) Date Value 12/13/2021 2.2 11/01/2021 2.2 10/15/2021 1.9 INR (no units) Date Value 07/07/2023 3.6 06/10/2023 3.9 05/07/2023 2.4 Hemoglobin (g/dL) Date Value 06/10/2023 11.7 07/31/2021 10.4 Hematocrit (%) Date Value 06/10/2023 37.7 07/31/2021 32.1 Platelet Count (k/uL) Date Value 06/10/2023 257 07/31/2021 405 Creatinine (mg/dL) Date Value 06/10/2023 0.75 10/06/2022 0.77 07/26/2022 0.83 07/31/2021 0.65 11/12/2020 0.71 07/03/2020 0.65 Bilirubin, Total (mg/dL) Date Value 06/10/2023 0.3 07/31/2021 0.4 ALT (U/L) Date Value 06/10/2023 47 07/31/2021 16 AST (U/L) Date Value 06/10/2023 44 07/31/2021 17 Estimated Creatinine Clearance: 87.9 mL/min (based on SCr of 0.75 mg/dL). 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 Plan: Current Warfarin Dosing As of 07/08/2023 Full warfarin instructions: 07/08: 1.25 mg; Otherwise 3.75 mg every Mon; 2.5 mg all other days; Starting 07/09/2023 Called and spoke to patient/caregiver Advised patient to decrease dose for 1 day and decrease total weekly regimen Next lab INR check scheduled on 07/29/2023 Patient verbalizes understanding of the plan. Patient denies need for refills. Maddie Vallecillo [facility] Clinical Pharmacist, Pharmacy Anticoagulation Clinic Pharmacy Anticoagulation Clinic Pager: [phone]. documented in this encounter [facility] 06-11-2023 Miscellaneous Notes Spoke to patient - Patient denies any vomitting/diarrhea, grapefruit/cranberry ingestion, increased use of APAP or NSAIDS, change in nutritional supplements and increased EtOH use or edema. Patient states she thinks she has been lacking on her vitamin K intake. Mariam Ellington, PharmD., CACP PATIENT CALL Patient called call center regarding results. Patient called and stated she was retuning call from [facility]. Patient stated she did resume taking Plavix at the end of April and isn't sure if this would have affected her INR level/warfarin. Patient can be reached at [phone] to discuss. PT INR (no units) Date Value 12/13/2021 2.2 11/01/2021 2.2 10/15/2021 1.9 INR (no units) Date Value 06/10/2023 3.9 05/07/2023 2.4 04/14/2023 3.2 Kori Sauer (Glass Robot Operator) [facility] Ambulatory Pharmacy Anticoagulation Clinic Anticoagulation Episode Summary Anticoagulation Care Providers Provider Role Specialty Phone number Estephania Rodriguez MD Referring Internal Medicine [phone] Wendy Forte is a 68 year old year old female patient being evaluated today for a Lab INR. Patient is currently on the following anticoagulant(s) Warfarin. Labs PT INR (no units) Date Value 12/13/2021 2.2 11/01/2021 2.2 10/15/2021 1.9 INR (no units) Date Value 06/10/2023 3.9 05/07/2023 2.4 04/14/2023 3.2 Hemoglobin (g/dL) Date Value 06/10/2023 11.7 07/31/2021 10.4 Hematocrit (%) Date Value 06/10/2023 37.7 07/31/2021 32.1 Platelet Count (k/uL) Date Value 06/10/2023 257 07/31/2021 405 Creatinine (mg/dL) Date Value 06/10/2023 0.75 10/06/2022 0.77 07/26/2022 0.83 07/31/2021 0.65 11/12/2020 0.71 07/03/2020 0.65 Bilirubin, Total (mg/dL) Date Value 06/10/2023 0.3 07/31/2021 0.4 ALT (U/L) Date Value 06/10/2023 47 07/31/2021 16 AST (U/L) Date Value 06/10/2023 44 07/31/2021 17 Estimated Creatinine Clearance: 87.9 mL/min (based on SCr of 0.75 mg/dL). 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 documented in this encounter [facility] 05-18-2023 History of Present illness Narrative This note was created using [email or web address]. Subjective Wendy Forte is a 68 year old female. Patient presents with: Established Patient: Follow up SUBJECTIVE: Wendy Forte is a 68 year old year old lady here today for follow up appointment for review of medical conditions. Doing well. Discussed COVID vaccine. Had COVID in the past. Noted that could not afford Myrbetriq. Has scope scheduled. Not sure if was to have stopped taking the Plavix. Still on their notes was had filled in February. Blood sugars around 150s fasting first thing in AM. Random nonfasting around 15s as well. Same around bedtime. PAST MEDICAL HISTORY Diagnosis Date Adjustment disorder with depressed mood Hyperlipidemia 06/13/2009 Obesity, morbid, BMI 40.0-49.9 (HCC) Other and unspecified hyperlipidemia Type II or unspecified type diabetes mellitus without mention of complication, not stated as uncontrolled Unspecified essential hypertension Urinary frequency Current Outpatient Medications Medication Sig estradiol (ESTRACE) 0.01 % (0.1 mg/gram) vaginal cream Use 1 g vaginally two times a week. Apply before bed. Apply a pea-sized amount of cream to the vagina/vulva. Biotin 10,000 mcg cap Take 10,000 mcg by mouth once daily. mirabegron (MYRBETRIQ) 25 mg Tb24 Take 1 tablet by mouth once daily. warfarin (COUMADIN) 2.5 mg tablet Start with 2.5 mg daily. Will titrate dose as indicated FLUoxetine (PROZAC) 40 mg capsule Take 1 capsule by mouth once daily. insulin lispro (HUMALOG KWIKPEN INSULIN) 100 unit/mL Inject 6 Units subcutaneously daily with breakfast AND 6 Units daily with dinner. Patient assistance medication. potassium chloride ER (K-DUR, KLOR-CON) 20 mEq tablet Take 2 tablets by mouth twice daily. metoprolol tartrate, short acting, (LOPRESSOR) 50 mg tablet Take 1 tablet by mouth twice daily. rosuvastatin (CRESTOR) 5 mg tablet Take 1 tablet by mouth daily at bedtime. IFEREX 150 150 mg iron capsule Take 1 capsule by mouth once daily. metFORMIN ER (GLUCOPHAGE XR) 500 mg 24 hr tablet Take 2 tablets by mouth twice daily with meals. clopidogrel (PLAVIX) 75 mg tablet Take 1 tablet by mouth once daily. insulin glargine (LANTUS SOLOSTAR U-100 INSULIN) 100 unit/mL (3 mL) Inject 33 Units subcutaneously daily at bedtime. Patient Assistance Med blood sugar diagnostic (FREESTYLE TEST) test strip Check 4 time daily as directed. DX E11.65, Insulin: Yes (Patient taking differently: Check 4 time daily as directed. DX E11.65, Insulin: Yes Checks sugars about three times daily per patient.) Lancets lancets Test blood sugar(s) 4 times daily as directed. Dx: diabetes E11.65. Insulin: Yes (Patient taking differently: Test blood sugar(s) 4 times daily as directed. Dx: diabetes E11.65. Insulin: Yes Checks sugars about three times daily per patient.) COMPOUNDED PRESCRIPTION Diabetic shoes with insoles. DX E11.65, E11,49 COMPOUNDED PRESCRIPTION ascensia lancets insulin glargine (LANTUS SOLOSTAR, BASAGLAR KWIKPEN) 100 unit/mL (3 mL) Inject 33 Units subcutaneously daily at bedtime. Patient assistance medication (Patient not taking: Reported on 04/20/2023) insulin needles, DISPOSABLE, (PEN NEEDLE) 31 gauge x 5/16 ndle Use one needle per dose. One per day. (Patient not taking: Reported on 04/20/2023) COMPOUNDED PRESCRIPTION Hinged knee brace for left knee--Nestor Mehta OA Reaction Web Knee brace. Dx Knee pain and decreased mobility secondary to degenerative arthritis 715.96 (Patient not taking: Reported on 10/06/2022) No current facility-administered medications for this visit. Review of Systems Objective BP 145/76 Pulse 68 Temp 37.2 C (98.9 F) Resp 18 Wt 112 kg (247 lb) SpO2 97% BMI 42.40 kg/m Last 5 Encounter Wt Readings: Date: Wt: 05/18/2023 112 kg (247 lb) 04/20/2023 110.6 kg (243 lb 12.8 oz) 02/16/2023 111.1 kg (245 lb) 10/06/2022 112.6 kg (248 lb 4.8 oz) 10/06/2022 112.5 kg (248 lb) No waist measurement recorded Estimated body mass index is 42.4 kg/m as calculated from the following: Height as of 04/20/23: 162.6 cm (5' 4). Weight as of this encounter: 112 kg (247 lb). Last 5 Encounter BP Readings: Date: BP: 05/18/2023 145/76 04/20/2023 148/78[Patient reports being nervous since she has not met provider before. Leonard Banks DNP notified of blood pressure.[ 02/16/2023 128/72 10/06/2022 120/64 06/06/2022 124/70 05/18/23 1545 05/18/23 1654 BP: 145/76 138/78 Pulse: 68 Resp: 18 Temp: 37.2 C (98.9 F) SpO2: 97% Weight: 112 kg (247 lb) Physical Exam Constitutional: Appearance: Normal appearance. She is obese. HENT: Head: Normocephalic. Eyes: Conjunctiva/sclera: Conjunctivae normal. Cardiovascular: Rate and Rhythm: Normal rate and regular rhythm. Heart sounds: Normal heart sounds. Comments: Edema not tight; no weeping, no blisters Pulmonary: Effort: Pulmonary effort is normal. Breath sounds: Normal breath sounds. Musculoskeletal: Right lower le+ Pitting Edema present. Left lower le+ Pitting Edema present. Skin: General: Skin is warm and dry. Neurological: General: No focal deficit present. Mental Status: She is alert and oriented to person, place, and time. Psychiatric: Mood and Affect: Mood normal. Behavior: Behavior normal. Thought Content: Thought content normal. Judgment: Judgment normal. Hemoglobin A1C (%) Date Value 10/06/2022 9.2 06/30/2022 11.5 01/21/2022 11.0 09/20/2021 8.2 05/29/2021 11.0 11/12/2020 10.3 07/03/2020 11.8 10/13/2018 11.2 Hemoglobin A1C (POCT) (%) Date Value 01/08/2019 10.6 Assessment and Plan Encounter Diagnosis ICD-10-CM 1. Type 2 diabetes mellitus with hyperglycemia, without long-term current use of insulin (HCC) E11.65 HGB A1C COMP METABOLIC PANEL ALBUMIN/CREAT RATIO RND UR Sugrs have been better controlled in 150s on average 2. Mixed hyperlipidemia E78.2 LIPID PANEL BASIC Follow up on labs 3. HTN (hypertension), benign I10 HGB A1C COMP METABOLIC PANEL CBC LIPID PANEL BASIC ALBUMIN/CREAT RATIO RND UR Better on recheck. Stay on same meds. Will see Cardiology in August 4. Obesity, morbid, BMI 40.0-49.9 ([facility]) E66.01 5. Encounter for long-term current use of medication Z79.899 HGB A1C COMP METABOLIC PANEL CBC LIPID PANEL BASIC ALBUMIN/CREAT RATIO RND UR 6. Encounter for immunization Z23 INFLUENZA VACCINE, PRSV FREE, AGE 65+ YR, HIGH DOSE, QUADRIVALENT (FLUZONE HIGH-DOSE) 7. Anticoagulated on Coumadin Z79.01 8. Recurrent major depressive disorder, in full remission ([facility]) F33.42 Above issues addressed with patient. Patient involved in shared decision making for management of medical issues. History and medications reviewed. Epic updated as needed Refills and/or prescriptions taken care of and meds adjusted as indicated after reviewed history, exam and labs. Health Maintenance reviewed. Updated record and/or ordered tests as recorded. Encouraged on efforts at healthy diet and regular exercise and adequate sleep. Has first great grandchild no. Grandkijess doing well. Estephania Rodriguez MD documented in this encounter [facility] 04-21-2023 Miscellaneous Notes Called patient. Verified name and date of . Patient informed. Requested information to be mailed to her so she can get the Part D plan situated. Mailed. Cami Flores LPN [facility] - please review with her: I changed her vaginal cream to another generic estradiol cream. I canceled the other Rx and sent the new one to her pharmacy. I would also have her use Good Rx. For the Mybetriq. She can try Good Rx: There is not cheaper option that does not interact with her potassium. It does not appear that she is signed up for Medicare Part D drug plan. How to join a Medicare drug plan: Enroll on the Medicare Plan Finder or on the plan's website. Complete a paper enrollment form. Call the plan. Call us at 1-800-MEDICARE ( ). TTY: . When you join a Medicare drug plan, you'll give your Medicare Number and the date your Part A and/or Part B coverage started. This information is on your Medicare card. The following website will also help with enrolling in Part D: https://www.medicare.gov/plan-com pare/#/?plzy=9545&lang=en I also recommend starting to take Probiotics to prevent recurrent UTIs. 1.) Probiotics: take any brand once daily: Try the brand Align but change brands every 6 months - probiotics not only prevent constipation but replace multi-drug resistant bacteria residing in the Gut that lead to bladder infection! 2.) A good bowel regimen to promote a BM each day or by every 3rd day - your medical team may be of help here Henri Banks DNP, CNP Department of Urology [facility] Patient is calling in regards to medications that was ordered today and her cost for these is $449.00 and the second one was $459.00 she is asking if there is something cheaper please advise the patient. documented in this encounter [facility] 04-20-2023 Instructions Henri Banks APRN.PRISCILA FRANCISCO - 04/20/2023 12:02 PM EDT Trial of estrogen cream for recurrent UTIs Trial of Mybetriq for OAB Schedule Cystoscopy follow up with Henri Banks APRN.CNP, DNP in 8 weeks. Return to the clinic or seek care at [facility] for any worsening signs or symptoms: such as fevers, chills, worsening pain, or urinary symptoms For severe symptoms seek care at the closest ER. Plan of care, medicaiton side effects and management reviewed with patient. Healthy Habits: Recommend regular physical activity, nutrition and healthy eating habits. Consume a variety of foods every day focusing on fruits, vegetables and lean meats). Eat foods low in fat, saturated fat and cholesterol. Eat a limited amount of salt and sodium. Drink adequate amounts of water and limit sugary drinks. Exercise portion control in meal selection. Establish a mindset of a wellness approach to health. Thank you for allowing me to provide your care today. I look forward to seeing you again and maintaining your health. Henri Banks APRN.PRISCILA FRANCISCO documented in this encounter [facility] 04-20-2023 History of Present illness Narrative [facility] - [facility] Referring provider: Estephania Rodriguez MD New patient to Urology 04/20/2023 Chief Complaint Patient presents with: Consult recurrent uti HPI Wendy Forte is a 68 year old female who presents here today for chronic urinary tract infections. Is an established patient of Estephania Hernandez MD. This is a new patient to me. Denies any recent urgent care visits, ER visits or hospitalizations. Since Sep has had a total of 3 UTIs. All E Coli. Treated with antibiotics each time. Most recently treated with Keflex for her last UTI. Prior to 2022 she did have several UTIs over the past 2-3 years. In February went to ER at [facility] for abd pain. Diagnosed with mild diverticulitis. CT of abd and pelvis completed and showed diffuse bladder wall thickening. Reports: No recent dysuria, burning, urgency, and frequency. No blood in the urine. No fever or chills. Denies suprapubic pain or flank pain. Hx of smoking for 4 years about .25ppd. OAB: Hx of OAB and was on oxybutynin from 2006 and stopped in 2018 No fhx of bladder or renal cancer. Irritative: Nocturnal Frequency: Yes Urgency: Yes - mixed stress and urge incontinence. Frequency: Yes Dysuria: No Incontinence: Yes Microscopic Hematuria: No Gross Hematuria: No Past medical history, appointments, medications, allergies reviewed 04/20/2023 Previous Medical History PAST MEDICAL HISTORY Diagnosis Date Adjustment disorder with depressed mood Hyperlipidemia 06/13/2009 Obesity, morbid, BMI 40.0-49.9 (HCC) Other and unspecified hyperlipidemia Type II or unspecified type diabetes mellitus without mention of complication, not stated as uncontrolled Unspecified essential hypertension Urinary frequency Previous Surgical History PAST SURGICAL HISTORY Procedure Laterality Date BMD BONE DENSITY 12/23/2002 CHOLECYSTECTOMY 03/1979 Open cholecystectomy Family History FAMILY HISTORY Problem Relation Age of Onset Diabetes Brother HEART ATTACK,KIDNEY FAILURE Diabetes Father KIDNEY FAILURE Cancer Maternal Grandmother LIVER CANCER Heart Mother QUADRUPLE BIPASS Diabetes Sister Cancer Sister female cancer--told not ovarian cancer; had oophorectomy and having chemo Patient Allergies ALLERGIES Allergen Reactions Sulfa (Sulfonamide * Rash BLISTERS Current Medications Current Outpatient Medications on File Prior to Visit Medication Sig warfarin (COUMADIN) 2.5 mg tablet Start with 2.5 mg daily. Will titrate dose as indicated FLUoxetine (PROZAC) 40 mg capsule Take 1 capsule by mouth once daily. insulin lispro (HUMALOG KWIKPEN INSULIN) 100 unit/mL Inject 6 Units subcutaneously daily with breakfast AND 6 Units daily with dinner. Patient assistance medication. insulin glargine (LANTUS SOLOSTAR, BASAGLAR KWIKPEN) 100 unit/mL (3 mL) Inject 33 Units subcutaneously daily at bedtime. Patient assistance medication potassium chloride ER (K-DUR, KLOR-CON) 20 mEq tablet Take 2 tablets by mouth twice daily. metoprolol tartrate, short acting, (LOPRESSOR) 50 mg tablet Take 1 tablet by mouth twice daily. rosuvastatin (CRESTOR) 5 mg tablet Take 1 tablet by mouth daily at bedtime. IFEREX 150 150 mg iron capsule Take 1 capsule by mouth once daily. metFORMIN ER (GLUCOPHAGE XR) 500 mg 24 hr tablet Take 2 tablets by mouth twice daily with meals. clopidogrel (PLAVIX) 75 mg tablet Take 1 tablet by mouth once daily. (Patient not taking: Reported on 10/06/2022) insulin glargine (LANTUS SOLOSTAR U-100 INSULIN) 100 unit/mL (3 mL) Inject 33 Units subcutaneously daily at bedtime. Patient Assistance Med blood sugar diagnostic (FREESTYLE TEST) test strip Check 4 time daily as directed. DX E11.65, Insulin: Yes Lancets lancets Test blood sugar(s) 4 times daily as directed. Dx: diabetes E11.65. Insulin: Yes insulin needles, DISPOSABLE, (PEN NEEDLE) 31 gauge x 5/16 ndle Use one needle per dose. One per day. COMPOUNDED PRESCRIPTION Diabetic shoes with insoles. DX E11.65, E11,49 COMPOUNDED PRESCRIPTION Hinged knee brace for left knee--Nestor Mehta OA Reaction Web Knee brace. Dx Knee pain and decreased mobility secondary to degenerative arthritis 715.96 (Patient not taking: Reported on 10/06/2022) COMPOUNDED PRESCRIPTION ascensia lancets No current facility-administered medications on file prior to visit. Social History Social History Tobacco Use Smoking status: Former Packs/day: 0.50 Years: 30.00 Additional pack years: 0.00 Total pack years: 15.00 Types: Cigarettes Quit date: 09/07/2006 Years since quittin.6 Smokeless tobacco: Never Vaping Use Vaping Use: Never used Substance Use Topics Alcohol use: Not Currently Drug use: Never LABS: URINE POC GLUCOSE UA (POCT) Negative 04/20/2023 BILIRUBIN UA (POCT) Negative 04/20/2023 KETONE UA (POCT) Negative 04/20/2023 SPECIFIC GRAVITY UA (POCT) 1.020 04/20/2023 HEMOGLOBIN/BLOOD UA (POCT) Negative 04/20/2023 PH UA (POCT) 5.5 04/20/2023 PROTEIN UA (POCT) 30 04/20/2023 UROBILINOGEN UA (POCT) 1.0 04/20/2023 NITRITE UA (POCT) Positive 04/20/2023 LEUKOCYTES UA (POCT) Small 04/20/2023 COLOR UA (POCT) Dark yellow 04/20/2023 CLARITY UA (POCT) Cloudy 04/20/2023 Health Maintenance List DTAP,TDAP,TD(2 - Td or Tdap) due on 09/06/2022 ADVANCE DIRECTIVE DISCUSSION due on 09/07/2022 COVID-19 VACCINE(4 - Moderna series) due on 10/23/2022 COLORECTAL CANCER SCREENING due on 11/01/2022 HBA1C due on 01/04/2023 MAMMOGRAM due on 06/17/2023 SHINGRIX VACCINE(1 of 2) due on 06/06/2023 INFLUENZA(1) due on 05/08/2023 DIABETIC FOOT EXAM due on 06/06/2023 URINE ALBUMIN:CREATININE RATIO due on 06/30/2023 LDL CHOLESTEROL due on 06/30/2023 DILATED RETINAL EXAM due on 07/17/2023 ANNUAL PCP TEAM CHRONIC DISEASE VISIT due on 10/06/2023 BP CONTROLLED (<130/80) due on 02/17/2024 BONE DENSITY Completed DEPRESSION ASSESSMENT Completed HEPATITIS C SCREENING Completed PNEUMOCOCCAL: 65+ Completed PAP TESTING Discontinued LABS: Component Specimen Description Exam Type Accession Number Specimen Request Culture Culture Report Latest Ref Rng & Units 03/09/2011 Urine Urine Culture [id number] colony forming units per ml. (A) . . . 03/13/2011 . . . 06/14/2014 Urine midstream clean catch Urine Culture [id number] Zapien Top 50,000 - <100,000 CFU/ml . . . [id number] . . . 12/19/2016 Specimen received in preservative 50,000 - <100,000 CFU/ml . . . 06/15/2020 Specimen received in preservative 10,000 - <50,000 CFU/ml . . . 11/27/2020 Specimen received in preservative <10,000 CFU/ml . . . 05/29/2021 Specimen received in preservative >=100,000 CFU/ml (A) . . . 09/20/2021 9:10 AM Specimen received in preservative >=100,000 CFU/ml (A) . . . 09/20/2021 9:10 AM 50,000 - <100,000 CFU/ml (A) . . . 10/15/2021 3:44 PM Specimen received in preservative 50,000 - <100,000 CFU/ml . . . 10/15/2021 3:44 PM No further workup. Mixed microbiota can be due to urine contamination with skin . . . 11/13/2022 10:47 AM Mixed microbiota, including predominantly: 11/13/2022 10:47 AM >=100,000 CFU/ml Escherichia coli (A) 12/08/2022 >=100,000 CFU/ml Escherichia coli (A) 02/10/2023 >=100,000 CFU/ml Escherichia coli (A) 02/16/2023 >=100,000 CFU/ml Mixed microbiota (A) 04/01/2023 >=100,000 CFU/ml Mixed microbiota (A) Data reviewed Last 5 Encounter BP Readings: Date: BP: 02/16/2023 128/72 10/06/2022 120/64 06/06/2022 124/70 10/15/2021 114/62 08/28/2021 138/84 BMI Readings from Last 5 Encounters: 04/20/23 : 41.85 kg/m 02/16/23 : 46.29 kg/m 10/06/22 : 46.86 kg/m 10/06/22 : 46.92 kg/m 06/30/22 : 46.59 kg/m Last 5 Encounter Wt Readings: Date: Wt: 02/16/2023 111.1 kg (245 lb) 10/06/2022 112.6 kg (248 lb 4.8 oz) 10/06/2022 112.5 kg (248 lb) 06/30/2022 111.9 kg (246 lb 9.6 oz) 06/06/2022 114.8 kg (253 lb) Medication and allergy list reviewed, reconciled and updated 04/20/2023 Review of Symptoms GENERAL: No weight loss, malaise fatigue or fevers. GI: No nausea, vomiting, or diarrhea. No abdominal pain : + for burning, dysuria, urgency or frequency. No blood in urine MUSCULOSKELETAL: Negative for generalized joint pain or bodyaches SKIN: Negative for rash EXAM: BP 148/78 (BP Site: Right Arm, BP Position: Sitting, BP Cuff Size: Large Adult) Pulse 86 Temp 36.3 C (97.4 F) (Temporal) Ht 162.6 cm (5' 4) Wt 110.6 kg (243 lb 12.8 oz) SpO2 94% BMI 41.85 kg/m General Appearance: Well appearing, alert, in no acute distress, well-hydrated, well nourished. Obese Skin: Skin color, texture, turgor normal, no suspicious rashes or lesions. Head: Normocephalic, no masses, lesions, or abnormalities. GI: Soft and round. Nontender in epigastric region. No lower quadrant abdominal tenderness. No rebound tenderness. No suprapubic tenderness. No CVA tenderness. Negative Wright sign. Extremities: No deformities, edema, skin discoloration Psych: Attitude - cooperative, easily engaged in conversation Appearance - normal hygiene and grooming appropriate Affect - euthymic, normal mood Mental status: Alert, attentive. Gait/Stance: Posture is normal. Gait is steady ASSESSMENT/PLAN: 1. Recurrent UTI - ICD9: 599.0, ICD10: N39.0 (primary diagnosis) MDM: Diabetes complicates and likely contributes to her UTIs Discussed: Hydrate well daily, use Rx for estrogen and OAB was given, and call if symptoms persist. A culture was sent. OTC natural supplement for the prevention of recurrent UTIs. Some studies have shown this naturally occurring sugar works in the prevention of recurrent UTIs with little to no side effects. Causes of UTIs Urinary tract infections usually are caused by bacteria that live on the skin near the rectum or vagina. These bacteria can travel through the urinary tract and cause infections in the bladder or other parts of the urinary tract. UTIs in men are rare and usually indicate an abnormal urinary tract or an enlarged prostate. Change sanitary pads frequently Consider a trial of D-mannose as an Waiting too long to urinate -- The bladder is a muscle that gets bigger when it holds urine and shrinks to push it out. Waiting too long to urinate can cause the bladder muscles to stretch too much. Stretching weakens the muscle so not all the urine is pushed out, increasing the risk of a urinary tract infection. You can help prevent urinary tract infections by practicing the following health habits: Practice good personal hygiene. Always wipe from front to back. Drink plenty of fluids (at least three to four glasses of water each day) to help flush bacteria out of the urinary tract. Empty your bladder completely as soon as you feel the urge, or at least every three hours. Get plenty of vitamin C. It makes urine acidic and helps keep bacteria down. Vitamin C is found in orange juice, citrus fruits, and broccoli. Wear cotton underwear. Bacteria grows better in moist places. Cotton does not trap moisture. Plan: Trial of vaginal estrogen Trial of Mybetriq follow up in 8 weeks - UA DIP, URINE (POC) - PREMARIN 0.625 MG/GRAM VAGINAL CREAM - URINE CULTURE 2. Mixed stress and urge incontinence - ICD9: 788.33, ICD10: N39.46 Chronic and not well controlled: Plan: Trial of vaginal estrogen Trial of Mybetriq follow up in 8 weeks 3. Bladder wall thickening - ICD9: 596.89, ICD10: N32.[address] [facility]. Showed bladder wall thickening. The chronic UTIs are probable contributing factor. Recommend a cysto to eval - CYSTO DIAGNOSTIC 4. OAB (overactive bladder) - ICD9: 596.51, ICD10: N32.81 Chronic and not well controlled Failed Ditropan previously. Plan: Trial of vaginal estrogen Trial of Mybetriq follow up in 8 weeks - MIRABEGRON ER 25 MG TABLET,EXTENDED RELEASE 24 HR Henri Banks APRN.PRISCILA FRANCISCO This note was completed with [employer] dictation software. Note was reviewed for accuracy. There may be minor misspellings or grammar miscues with [employer] Dictation. I spent a total of 45 minutes on the date of the service which included preparing to see the patient, [id number] patient care, completing clinical documentation, performing a medically appropriate examination, counseling and educating the patient/family/caregiver and ordering medications, tests, or procedures. Consultation requested by Estephania Rodriguez MD for an opinion regarding recurrent UTI and my final recommendations will be communicated back to the requesting physician by way of shared Medical Record or letter via US mail. documented in this encounter [facility] 04-16-2023 Miscellaneous Notes Pharmacy verified in [facility] Patient has been identified by name and date of : Yes Patient aware RX will be sent to pharmacy. No need to notify patient. Patient phones for refill(s): Requested Prescriptions Pending Prescriptions Disp Refills warfarin (COUMADIN) 2.5 mg tablet 90 tablet 3 Sig: Start with 2.5 mg daily. Will titrate dose as indicated Date of last office visit : 10/06/2022 Date of next office visit : 05/18/2023 Last 2 Encounter Wt Readings: Date: Wt: 02/16/2023 111.1 kg (245 lb) 10/06/2022 112.6 kg (248 lb 4.8 oz) Not applicable Please advise. Ivy Major documented in this encounter [facility] 04-15-2023 Miscellaneous Notes [facility]ulatory [facility] Anticoagulation Clinic Anticoagulation Episode Summary Anticoagulation Care Providers Provider Role Specialty Phone number Estephania Rodriguez MD Referring Internal Medicine [phone] Wendy Forte is a 68 year old year old female patient being evaluated today for a Lab INR. Patient is currently on the following anticoagulant(s) Warfarin. Labs PT INR (no units) Date Value 12/13/2021 2.2 11/01/2021 2.2 10/15/2021 1.9 INR (no units) Date Value 04/14/2023 3.2 03/18/2023 4.1 02/10/2023 2.4 Hemoglobin (g/dL) Date Value 06/30/2022 12.5 07/31/2021 10.4 Hematocrit (%) Date Value 06/30/2022 38.8 07/31/2021 32.1 Platelet Count (k/uL) Date Value 06/30/2022 274 07/31/2021 405 Creatinine (mg/dL) Date Value 10/06/2022 0.77 07/26/2022 0.83 06/30/2022 0.90 07/31/2021 0.65 11/12/2020 0.71 07/03/2020 0.65 Bilirubin, Total (mg/dL) Date Value 06/30/2022 0.3 07/31/2021 0.4 ALT (U/L) Date Value 06/30/2022 33 07/31/2021 16 AST (U/L) Date Value 06/30/2022 26 07/31/2021 17 CrCl cannot be calculated (Patient's most recent lab result is older than the maximum 180 days allowed.). 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 fibrillation) (hcc) half-way current use of anticoagulant Anticoagulation Episode Summary Current INR goal: 2.0-3.0 Assessment: INR result of 3.2 is SUPRAtherapeutic due to: unknown cause - did not speak to patient Plan: Current Warfarin Dosing As of 04/15/2023 Full warfarin instructions: 3.75 mg every Mon, Fri; 2.5 mg all other days Left voice message Advised patient to continue current weekly dose as noted above but have a little more vitamin K. Next lab INR check scheduled on 05/06/2023 Asked her to call with any other changes or concerns. If her INR is high next time, she may need a dose adjustment. Last INR, she was finishing metronidazole. Maddie Vallecillo [facility] Clinical Pharmacist, Pharmacy Anticoagulation Clinic Pharmacy Anticoagulation Clinic Pager: [phone]. documented in this encounter [facility] 02-23-2023 Miscellaneous Notes Noted. Estephania Rodriguez MD ER records obtained. Patient was not referred to general surgeon or GI. Was given metronidazole and asked to f/u with primary if not improving. Noted Glad she was evaluated and treated. Noted follow up with urology. Does he have follow up with general surgeon or GI as well? Patient calling to let PCP know she went to [facility] ER this morning due to back and side pain. She says she was diagnosed with diverticulitis and UTI/bladder inflammation. She was prescribed Augmentin and Metronidazole and Hydrocodone 5 mg/Acetaminophen 325 mg. She has an appointment with Urology on 02/24. Ann Cho RN documented in this encounter [facility] 02-19-2023 Miscellaneous Notes Per encounter today pt went to [facility] ER. Noted Would continue antibiotic Noted has urology appointment Phoned pt, she states she started Keflex started and feels a little better. She is still having some back pain but not as bad as it was. She is using otc Tylenol and a heating pad. No hematuria. Pt is scheduled to see Urology on 02/24, advised to keep that appt. Patient already contacted by [facility] Told to follow up with PCP if ongoing symptoms. Check with patient whether she decided to take the Cephalexin and whether having symptoms of UTI or the back pain now. Urin culture is done. Please review and we can notify pt. Estela Clifton LPN Noted Urine culture in process. Okay to hold off on antibiotic while waiting for results PATIENT NOTIFIED OF SAME. She was seen in [facility] 02/16/2023 and was told there was no indication of UTI. Explain to patient that if still having UTI symptoms would encourage starting the cephalexin. Patient states that pain is in back and radiates around side. This symptom is new for her. Did ask patient to update office in a couple days on how she is doing. Since looks like macrobid did not clear the last UTI, will try cephalexin. Looks like she tolerate this in the past for other infection. If flank pain/back pain not getting better with this, and need to treat for kidney infection with different antibiotic. may need to consider Cipro even though on coumadin and watch INRs closely. Daily macrodantin on hold while taking Cephalexin then resume after completes course of antibiotic. The following approved medication requests have been transmitted electronically. Requested Prescriptions Signed Prescriptions Disp Refills cephALEXin (KEFLEX) 500 mg capsule 40 capsule 0 Sig: Take 1 capsule by mouth four times daily for 10 days. Authorizing Provider: ESTEPHANIA RODRIGUEZ MD Pt called back and she can not get into Urology till 02-24-23. Pt reports she understands that ATB are not helping but she is willing to try anything. The frequency has increased and her back hurts. She feels ATB may help a little to she is seen. Please advise pt. Estela Clifton LPN documented in this encounter [facility] 02-17-2023 Hospital Discharge instructions Additional Instructions 1. Keep appointment with urologist for this coming Thursday 2. Do not take anything that contains alcohol while you are on metronidazole 3. Decrease your Coumadin dose from 2.5 mg to 1.25 mg (half tablet for the next 7 days). [facility] Work Phone: 02-13-2023 Miscellaneous Notes Patient calls and notified of results and providers instructions. Patient verbalizes understanding and will call back Thursday to schedule with urology as she is currently unable to schedule. Zoë Nova RN Wendy has had several UTIs that are not responding to antibiotic treatment, her recent culture still shows E. Coli in the urine. I am placing a referral to urology to see if we can determine why these are not resolving. Please let her know and help schedule. Thanks! documented in this encounter [facility] 02-11-2023 Miscellaneous Notes [facility] Ambulatory Pharmacy Anticoagulation Clinic Anticoagulation Episode Summary Anticoagulation Care Providers Provider Role Specialty Phone number Estephania Rodriguez MD Referring Internal Medicine [phone] Wendy Forte is a 67 year old year old female patient being evaluated today for a Telemanagement visit. Patient is currently on the following anticoagulant(s) Warfarin. Labs PT INR (no units) Date Value 12/13/2021 2.2 11/01/2021 2.2 10/15/2021 1.9 INR (no units) Date Value 02/10/2023 2.4 01/21/2023 3.5 12/08/2022 2.9 Hemoglobin (g/dL) Date Value 06/30/2022 12.5 07/31/2021 10.4 Hematocrit (%) Date Value 06/30/2022 38.8 07/31/2021 32.1 Platelet Count (k/uL) Date Value 06/30/2022 274 07/31/2021 405 Creatinine (mg/dL) Date Value 10/06/2022 0.77 07/26/2022 0.83 06/30/2022 0.90 07/31/2021 0.65 11/12/2020 0.71 07/03/2020 0.65 Bilirubin, Total (mg/dL) Date Value 06/30/2022 0.3 07/31/2021 0.4 ALT (U/L) Date Value 06/30/2022 33 07/31/2021 16 AST (U/L) Date Value 06/30/2022 26 07/31/2021 17 CrCl cannot be calculated (Unknown ideal weight.). 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 Patient denies need for refills. Maddie Vallecillo [facility] Clinical Pharmacist, Pharmacy Anticoagulation Clinic Pharmacy Anticoagulation Clinic Pager: [phone]. documented in this encounter [facility] 02-10-2023 Miscellaneous Notes Needing to have order placed for patient to have urine CX re-checked. Finished antibiotic for UTI. Patient dropped the urine off already. Leda Bray LPN documented in this encounter [facility] 12-10-2022 Miscellaneous Notes Patient notified and voiced her understanding. Called and left a voicemail for the Patient to call back and ask for a nurse to receive the providers message. Kori Pendleton RN Culture shows that infection is still susceptible to Macrobid, can try and treat for a longer duration with this and then repeat culture once done. Culture is finalized. Patient notified of same and agreed to wait until culture is back to decide on treatment. With her being on coumadin it would be best to avoid cipro. If okay with her I would like to see once the culture is back if the bacteria is still susceptible and not resistant to Macrobid. If still susceptible we could treat more assisted with the Macrobid while she is gone. Spoke with patient and she states the only symptom she has that is off and on is urinary frequency. While she was on the macrobid the symptom did improve. She states yesterday was a good day but today she has had to urinate often. She doesn't remember taking Omnicef or Keflex in the past. She does remember being on Cipro in the past. She also mentioned that she will be out of the state for about 1 month and is hoping to have treatment while away the full month. Please call patient, let her know urine dip and prelim culture show UTI still present. Did her symptoms improve any with the Macrobid? Has she taken Omnicef or Keflex in the past with any issues? documented in this encounter [facility] 12-08-2022 Miscellaneous Notes [facility] Ambulatory Pharmacy Anticoagulation Clinic Anticoagulation Episode Summary Anticoagulation Care Providers Provider Role Specialty Phone number Estephania Rodriguez MD Referring Internal Medicine [phone] Wendy Forte is a 67 year old year old female patient being evaluated today for a Telemanagement visit. Patient is currently on the following anticoagulant(s) Warfarin. Labs PT INR (no units) Date Value 12/13/2021 2.2 11/01/2021 2.2 10/15/2021 1.9 INR (no units) Date Value 12/08/2022 2.9 11/13/2022 2.5 10/06/2022 2.5 Estimated Creatinine Clearance: 82.5 mL/min (based on SCr of 0.77 mg/dL). 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: Anticoagulation Episode Summary Current INR goal: 2.0-3.0 Assessment: INR result of 2.9 is therapeutic Plan: Current Warfarin Dosing As of 12/08/2022 Full warfarin instructions: 3.75 mg every Mon, Fri; 2.5 mg all other days Called and spoke to patient/caregiver Advised patient to continue current weekly dose as noted above Next INR check due on 02/09/2023 - patient will be in [place] until the end of January Patient verbalizes understanding of the plan. Jw Roberts RPh Clinical Pharmacist, Pharmacy Anticoagulation Clinic Pharmacy Anticoagulation Clinic Pager: [phone]. documented in this encounter [facility] 11-19-2022 Miscellaneous Notes PATIENT NOTIFIED OF SAME. Orders placed for repeat urine studies for once oral ATB complete. Patient returned call and given provider's message below. If provider would please place orders for post-antibiotic urine studies. Thank you. Message left on voicemail to call office for update. Leda Bray LPN Sensitive bacteria. Will treat with Macrobid Recheck urine studies after finished antibiotic if symptoms do not resolve The following approved medication requests have been transmitted electronically. Requested Prescriptions Signed Prescriptions Disp Refills nitrofurantoin monohydrate and macrocrystal (MACROBID) 100 mg capsule 14 capsule 0 Sig: Take 1 capsule by mouth twice daily with meals for 7 days. Authorizing Provider: ESTEPHANIA RODRIGUEZ MD Patient calling for urine culture results done 11/13/22. She is still having urinary frequency. Culture Mixed microbiota, including predominantly: >=100,000 CFU/ml Escherichia coli Abnormal This test was developed and its performance characteristics determined by the [facility]'s [facility] [place] ([facility] It has not been cleared or approved by the FDA. [facility] is regulated under CLIA as qualified to perform high-complexity testing. This test is used for clinical purposes. It should not be regarded as investigational or for research. Resulting Agency: [facility] Susceptibility Escherichia coli (1) Antibiotic Interpretation Method Status Ampicillin Susceptible MINIMUM INHIBITORY CONCENTRATION(VITEK) Final Cefazolin Susceptible MINIMUM INHIBITORY CONCENTRATION(VITEK) Final Ceftriaxone Susceptible MINIMUM INHIBITORY CONCENTRATION(VITEK) Final Cefepime Susceptible MINIMUM INHIBITORY CONCENTRATION(VITEK) Final Ertapenem Susceptible MINIMUM INHIBITORY CONCENTRATION(VITEK) Final Meropenem Susceptible MINIMUM INHIBITORY CONCENTRATION(VITEK) Final Ampicillin/Sulbact Susceptible MINIMUM INHIBITORY CONCENTRATION(VITEK) Final Piperacillin/Tazobac Susceptible MINIMUM INHIBITORY CONCENTRATION(VITEK) Final Gentamicin Susceptible MINIMUM INHIBITORY CONCENTRATION(VITEK) Final Tobramycin Susceptible MINIMUM INHIBITORY CONCENTRATION(VITEK) Final Trimeth sulfameth Susceptible MINIMUM INHIBITORY CONCENTRATION(VITEK) Final Ciprofloxacin Susceptible MINIMUM INHIBITORY CONCENTRATION(VITEK) Final Nitrofurantoin Susceptible MINIMUM INHIBITORY CONCENTRATION(VITEK) Final Susceptibility Comments CLSI breakpoints for therapy of uncomplicated UTIs due to E. coli, K. pneumoniae, and P. mirabilis were applied and may be used to predict the activity of oral agents (cefaclor, cefdinir, cefpodoxime, cefprozil, cefuroxime, cephalexin, loracarbef). Specimen Collected: 11/13/22 10:47 AM EST Last Resulted: 11/15/22 9:22 AM EST documented in this encounter [facility] 11-13-2022 Miscellaneous Notes [facility] Ambulatory Pharmacy Anticoagulation Clinic Anticoagulation Episode Summary Anticoagulation Care Providers Provider Role Specialty Phone number Estephania Rodriguez MD Referring Internal Medicine [phone] Wendy Forte is a 67 year old year old female patient being evaluated today for a Lab INR. Patient is currently on the following anticoagulant(s) Warfarin. Labs PT INR (no units) Date Value 12/13/2021 2.2 11/01/2021 2.2 10/15/2021 1.9 INR (no units) Date Value 11/13/2022 2.5 10/06/2022 2.5 10/04/2022 2.6 Hemoglobin (g/dL) Date Value 06/30/2022 12.5 07/31/2021 10.4 Hematocrit (%) Date Value 06/30/2022 38.8 07/31/2021 32.1 Platelet Count (k/uL) Date Value 06/30/2022 274 07/31/2021 405 Creatinine (mg/dL) Date Value 10/06/2022 0.77 07/26/2022 0.83 06/30/2022 0.90 07/31/2021 0.65 11/12/2020 0.71 07/03/2020 0.65 Bilirubin, Total (mg/dL) Date Value 06/30/2022 0.3 07/31/2021 0.4 ALT (U/L) Date Value 06/30/2022 33 07/31/2021 16 AST (U/L) Date Value 06/30/2022 26 07/31/2021 17 Estimated Creatinine Clearance: 82.5 mL/min (based on SCr of 0.77 mg/dL). 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: half-way current use of anticoagulant Paf (paroxysmal atrial fibrillation) (hcc) Anticoagulation Episode Summary Current INR goal: 2.0-3.0 Assessment: INR result of 2.5 is therapeutic Plan: Current Warfarin Dosing As of 11/10/2022 Full warfarin instructions: 3.75 mg every Mon, Fri; 2.5 mg all other days Called and spoke to patient/caregiver Advised patient to continue current weekly dose as noted above Next lab INR check scheduled on 12/22/2022 Patient verbalizes understanding of the plan. Patient denies need for refills. Mariam Ellington RPh Clinical Pharmacist, Pharmacy Anticoagulation Clinic Pharmacy Anticoagulation Clinic Pager: [phone]. Patient was due to test INR today. Will continue to monitor for results. documented in this encounter [facility] 11-12-2022 Miscellaneous Notes Rec'd fax from [facility]. Pt has been approved for this year. Meets program eligibility requirements and is enrolled for this year. [id number] Also [id number]. documented in this encounter [facility] 11-11-2022 Miscellaneous Notes PATIENT NOTIFIED OF SAME. Filed order The following approved medication requests have been transmitted electronically. Requested Prescriptions Signed Prescriptions Disp Refills FLUoxetine (PROZAC) 40 mg capsule 90 capsule 3 Sig: Take 1 capsule by mouth once daily. Authorizing Provider: ESTEPHANIA RODRIGUEZ MD Patient phoned to ask pcp the followin) YOAN Sloan cancelled her prozac 40 mg b/c she told them she wasn't taking it (she was wrong) but she was taking it but thought they were talking about a different medication. Pharmacy tells her pcp will need to send a new Rx, since they d/c'd the other one. Pended. 2) Patient is coming into lab on to have INR draw, and asking pcp to put in order for urine test. Reports she is having s/s UTI: urgency/frequency for 2 days and would like to have it checked. Pended. documented in this encounter [facility] 10-24-2022 Miscellaneous Notes Prescriptions and form faxed back Rx signed Date noted. Still need printed rx. When rec'd will fax already faxed application and rx to number on the form. Patient phoned to reports [facility] phoned her yesterday, and told her, to have pcp put date on page 5 of Rx section, and fax back to them. Waiting for this for the insulin. Pending orders for [facility], for Basaglar and Humalog. Please print and sign pended order so they may be faxed to [facility]. Pended orders: Requested Prescriptions Pending Prescriptions Disp Refills insulin lispro (HUMALOG KWIKPEN INSULIN) 100 unit/mL 15 mL 1 Sig: Inject 6 Units subcutaneously daily with breakfast AND 6 Units daily with dinner. Patient assistance medication. insulin glargine (LANTUS SOLOSTAR, BASAGLAR KWIKPEN) 100 unit/mL (3 mL) 30 mL 1 Sig: Inject 33 Units subcutaneously daily at bedtime. Patient assistance medication Ezio High RPh Rec'd fax from [facility]. They are wanting new rx for PAE [id number] and PEA- [id number]. Humalog and lantus? It doesn't say the medicine of the form. Can this be sent electronically? Or printed rx and fax to [facility] at [phone] documented in this encounter [facility] 10-17-2022 History of Present illness Narrative Primary Care Pharmacy Visit CC (Reason for Consult): DM Goal: A1c<7% Last Collaborating Physician/AUDITING SPECIALIST Visit: 10/06/22 Wendy Forte is a 67 year old female presenting for follow up visit by telephone. Patient consents to pharmacy collaborative practice agreement. At last visit with PCP on 09/26/22 the following changes were made: advised to complete lab work. INTERIM HISTORY: Doing well overall Feels better since BG readings trending down, less tired Fasting BG readings in the 130-150s range No readings in the 200s Current DM Medications: Metformin ER 500 mg tabs - 1000 mg BID Lantus 33 units once daily at bedtime Humalog 6 units before breakfast and before dinner Past DM medications: Glimepiride Avandia ROS: Patient denies CP, SOB, CRUZ, blurred vision, dizziness or lightheadedness Patient denies nausea, vomiting, diarrhea, abdominal pain Patient denies symptoms of hypoglycemia (sweating, anxiety, palpitations, hunger, and tremor) Patient denies symptoms of hyperglycemia (polyuria, polydipsia, polyphagia) Patient denies potential medication adverse effects MEDICATIONS: Pill bottles are not present Adherence: denies missed doses Pharmacy: [facility] in [place] Rx coverage: Medicare A and B only Affordability: no issues; gets Lantus through [facility] PR[facility]LEM L[facility] Htn (Hypertension), Benign Hyperlipidemia Type II Diabetes Mellitus, Uncontrolled Urinary Frequency Panic Disorder Without Agoraphobia Gerd (Gastroesophageal Reflux Disease) Heart Palpitations Obesity, Morbid, Bmi 40.0-49.9 ([facility]) Type 2 Diabetes Mellitus With Hyperglycemia, Without Long-Term Current Use of Insulin (Hcc) Paf (Paroxysmal Atrial Fibrillation) ([facility]) 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 metoprolol tartrate, short acting, (LOPRESSOR) 50 mg tablet Take 1 tablet by mouth twice daily. rosuvastatin (CRESTOR) 5 mg tablet Take 1 tablet by mouth daily at bedtime. IFEREX 150 150 mg iron capsule Take 1 capsule by mouth once daily. insulin lispro (HUMALOG KWIKPEN INSULIN) 100 unit/mL Inject 6 Units subcutaneously daily with breakfast AND 6 Units daily with dinner. metFORMIN ER (GLUCOPHAGE XR) 500 mg 24 hr tablet Take 2 tablets by mouth twice daily with meals. clopidogrel (PLAVIX) 75 mg tablet Take 1 tablet by mouth once daily. (Patient not taking: Reported on 10/06/2022) FLUoxetine (PROZAC) 40 mg capsule Take 1 capsule by mouth once daily. warfarin (COUMADIN) 2.5 mg tablet Start with 2.5 mg daily. Will titrate dose as indicated insulin glargine (LANTUS SOLOSTAR U-100 INSULIN) 100 unit/mL (3 mL) Inject 33 Units subcutaneously daily at bedtime. Patient Assistance Med blood sugar diagnostic (FREESTYLE TEST) test strip Check 4 time daily as directed. DX E11.65, Insulin: Yes Lancets lancets Test blood sugar(s) 4 times daily as directed. Dx: diabetes E11.65. Insulin: Yes insulin needles, DISPOSABLE, (PEN NEEDLE) 31 gauge x 5/16 ndle Use one needle per dose. One per day. COMPOUNDED PRESCRIPTION Diabetic shoes with insoles. DX E11.65, E11,49 COMPOUNDED PRESCRIPTION Hinged knee brace for left knee--Nestor Mehta OA Reaction Web Knee brace. Dx Knee pain and decreased mobility secondary to degenerative arthritis 715.96 (Patient not taking: Reported on 10/06/2022) COMPOUNDED PRESCRIPTION ascensia lancets No current facility-administered medications for this visit. EXAM: Last 3 Encounter BP Readings: Date: BP: 10/06/2022 120/64 06/06/2022 124/70 10/15/2021 114/62 Wt: 112.6 kg (248 lb 4.8 oz) BMI: 46.92 kg/(m^2) LABS: Lab Results Component Value Date HBA1C 9.2 10/06/2022 HBA1C 11.5 06/30/2022 HBA1C 11.0 01/21/2022 HBA1C 8.2 09/20/2021 HBA1C 11.0 05/29/2021 HBA1C 10.3 11/12/2020 CMP: Glucose 214 10/06/2022 BUN 20 10/06/2022 Creatinine 0.77 10/06/2022 Sodium 135 10/06/2022 Potassium 5.0 10/06/2022 Chloride 102 10/06/2022 CO2 20 10/06/2022 Protein, Total 7.7 06/30/2022 Albumin 4.1 06/30/2022 Calcium 10.2 10/06/2022 Alkaline Phosphatase 138 06/30/2022 Bilirubin, Total 0.3 06/30/2022 AST 26 06/30/2022 ALT 33 06/30/2022 Serum creatinine: 0.77 mg/dL 10/06/22 1639 Estimated creatinine clearance: 82.5 mL/min No results found for: GFR eGFR- (no units) Date Value 07/31/2021 >60 Lab Results Component Value Date CHOL 138 06/30/2022 CHOL 148 05/29/2021 LDL 60 06/30/2022 LDL 69 05/29/2021 HDL 34 06/30/2022 HDL 34 05/29/2021 TG 220 06/30/2022 TG 225 05/29/2021 The 10-year ASCVD risk score (Zeinab MADERA, et al., 2019) is: 15.1% Values used to calculate the score: Age: 67 years Sex: Female Is Non- : No Diabetic: Yes Tobacco smoker: No Systolic Blood Pressure: 120 mmHg Is BP treated: Yes HDL Cholesterol: 34 mg/dL Total Cholesterol: 138 mg/dL Albumin/Creat Ratio (mg/g) Date Value 06/30/2022 38 (H) PHARMACOTHERAPY ASSESSMENT/PLAN: 1. Type 2 diabetes mellitus with other specified complication, with long-term current use of insulin (HCC) - ICD9: 250.80, V58.67, ICD10: E11.69, Z79.4 A1c goal < 7%; not at goal (last A1c 9.2%); SMBG largely improved on current regimen. Tolerating current medications well with no low BG or ADEs. Today, will continue current regimen. Renal function appropriate for continued use Continue Humalog 6 units before breakfast and before dinner Continue Metformin ER 500 mg tabs - 1000 mg BID Continue Lantus 33 units once daily at bedtime Follow up: Patient is scheduled to see PCP team on 01/30/23. Patient to follow up with pharmD on 11/14/22. Patient verbalized understanding of instructions. Ezio High, CasaD, BCACP Primary Care Clinical Pharmacist The majority of the pharmacy visit (> 50%) was spent counseling and/or coordinating care for the patient. [Telephonic] time was 18 minutes. documented in this encounter [facility] 10-15-2022 Miscellaneous Notes Patient at last OV with PCP stated that her Plavix had been discontinued by [facility] provider. The OV notes from patient Cardiology visits do not state the medication has in any way been changed. Nursing faxed [facility] to check with them concerning the medication. Leda Bray LPN documented in this encounter [facility] 10-06-2022 History of Present illness Narrative This note was created using [employer]. Subjective Wendy Forte is a 67 year old female. Patient presents with: 4 month follow up SUBJECTIVE: Wendy Forte is a 67 year old year old lady here today for 4 month follow up appointment for review of medical conditions. Noted fell 08/27. Fell when missed getting rollator. Hit right side of face and nose. Black and blue on that side of face. Had laceration on eyebrow but glue worked. Head/face still really tender. Just residual bruise on cheek noted. Left thumb still hurts since landed on it/ Brace helped. Still sore and tender. Stopped taking Plavix. Was told by NOLAN at Dr. Díaz's office to stop it. Is on Coumadin now. CENTRAL OFFICE INSTALLER called her to stop taking it. Noted med is on medlist from recent appointment with Dr. Daíz though. Sugars much improved. 153 highest sugar. Lowest 113. Feels low a t100s though. Gets shaky. Working with Ezio. PAST MEDICAL HISTORY Diagnosis Date Adjustment disorder with depressed mood Hyperlipidemia 06/13/2009 Obesity, morbid, BMI 40.0-49.9 (HCC) Other and unspecified hyperlipidemia Type II or unspecified type diabetes mellitus without mention of complication, not stated as uncontrolled Unspecified essential hypertension Urinary frequency Current Outpatient Medications Medication Sig IFEREX 150 150 mg iron capsule Take 1 capsule by mouth once daily. insulin lispro (HUMALOG KWIKPEN INSULIN) 100 unit/mL Inject 6 Units subcutaneously daily with breakfast AND 6 Units daily with dinner. metFORMIN ER (GLUCOPHAGE XR) 500 mg 24 hr tablet Take 2 tablets by mouth twice daily with meals. clopidogrel (PLAVIX) 75 mg tablet Take 1 tablet by mouth once daily. FLUoxetine (PROZAC) 40 mg capsule Take 1 capsule by mouth once daily. warfarin (COUMADIN) 2.5 mg tablet Start with 2.5 mg daily. Will titrate dose as indicated insulin glargine (LANTUS SOLOSTAR U-100 INSULIN) 100 unit/mL (3 mL) Inject 33 Units subcutaneously daily at bedtime. Patient Assistance Med rosuvastatin (CRESTOR) 5 mg tablet Take 1 tablet by mouth daily at bedtime. potassium chloride ER (K-DUR, KLOR-CON) 20 mEq tablet Take 2 tablets by mouth twice daily. metoprolol tartrate, short acting, (LOPRESSOR) 50 mg tablet Take 1 tablet by mouth twice daily. blood sugar diagnostic (FREESTYLE TEST) test strip Check 4 time daily as directed. DX E11.65, Insulin: Yes Lancets lancets Test blood sugar(s) 4 times daily as directed. Dx: diabetes E11.65. Insulin: Yes insulin needles, DISPOSABLE, (PEN NEEDLE) 31 gauge x 5/16 ndle Use one needle per dose. One per day. COMPOUNDED PRESCRIPTION Diabetic shoes with insoles. DX E11.65, E11,49 COMPOUNDED PRESCRIPTION ascensia lancets COMPOUNDED PRESCRIPTION Hinged knee brace for left knee--Don Janine OA Reaction Web Knee brace. Dx Knee pain and decreased mobility secondary to degenerative arthritis 715.96 (Patient not taking: Reported on 10/06/2022) No current facility-administered medications for this visit. Review of Systems Objective BP 120/64 Pulse 72 Temp 36.7 C (98.1 F) Resp 18 Wt 112.5 kg (248 lb) SpO2 98% BMI 46.86 kg/m Physical Exam Constitutional: Appearance: Normal appearance. She is obese. HENT: Head: Normocephalic. Eyes: Conjunctiva/sclera: Conjunctivae normal. Cardiovascular: Rate and Rhythm: Normal rate and regular rhythm. Heart sounds: Normal heart sounds. Pulmonary: Effort: Pulmonary effort is normal. Breath sounds: Normal breath sounds. Skin: General: Skin is warm and dry. Neurological: General: No focal deficit present. Mental Status: She is alert and oriented to person, place, and time. Psychiatric: Attention and Perception: Attention and perception normal. Mood and Affect: Mood normal. Speech: Speech normal. Behavior: Behavior normal. Thought Content: Thought content normal. Cognition and Memory: Cognition and memory normal. Judgment: Judgment normal. Component Latest Ref Rng & Units 09/20/2021 01/21/2022 06/30/2022 07/26/2022 WBC 3.70 - 11.00 k/uL 6.36 RBC 3.90 - 5.20 m/uL 4.26 Hemoglobin 11.5 - 15.5 g/dL 12.5 Hematocrit 36.0 - 46.0 % 38.8 MCV 80.0 - 100.0 fL 91.1 MCH 26.0 - 34.0 pg 29.3 MCHC 30.5 - 36.0 g/dL 32.2 RDW-CV 11.5 - 15.0 % 13.6 Platelet Count 150 - 400 k/uL 274 MPV 9.0 - 12.7 fL 10.9 Neut% % 54.1 Abs Neut (ANC) 1.45 - 7.50 k/uL 3.44 Lymph% % 34.1 Abs Lymph 1.00 - 4.00 k/uL 2.17 Brown% % 6.3 Abs Brown <0.87 k/uL 0.40 Eosin% % 4.4 Abs Eosin <0.46 k/uL 0.28 Baso% % 0.6 Abs Baso <0.11 k/uL 0.04 Immature Gran % % 0.5 IMMATURE GRANS (ABS) <0.10 k/uL 0.03 NRBC /100 WBC 0.0 Absolute nRBC <0.01 k/uL <0.01 DTYPE Auto Protein, Total 6.3 - 8.0 g/dL 7.7 Albumin 3.9 - 4.9 g/dL 4.1 Calcium 8.5 - 10.2 mg/dL 9.9 9.5 Bilirubin, Total 0.2 - 1.3 mg/dL 0.3 Alkaline Phosphatase 34 - 123 U/L 138 (H) AST 13 - 35 U/L 26 ALT 7 - 38 U/L 33 Glucose 74 - 99 mg/dL 393 (H) 119 (H) BUN 7 - 21 mg/dL 27 (H) 25 (H) Creatinine 0.58 - 0.96 mg/dL 0.90 0.83 Sodium 136 - 144 mmol/L 134 (L) 137 Potassium 3.7 - 5.1 mmol/L 5.6 (H) 4.3 Chloride 97 - 105 mmol/L 98 104 CO2 22 - 30 mmol/L 23 22 Anion Gap 9 - 18 mmol/L 13 11 eGFR >=60 mL/min/1.73m 70 77 Cholesterol, Total <200 mg/dL 138 Triglyceride <150 mg/dL 220 (H) HDL Cholesterol >39 mg/dL 34 (L) Non HDL Cholesterol <130 mg/dL 104 Fasting Time hrs 18 VLDL Cholesterol <30 mg/dL 44 (H) TC:HDL Ratio <5.10 4.06 LDL Cholesterol <100 mg/dL 60 LDL:HDL Ratio <2.54 1.76 Creatinine, Ur Random (UCRR) 20.0 - 300.0 mg/dL 41.0 Albumin, Urine Random mg/L 15.6 Albumin/Creat Ratio <30 mg/g 38 (H) Hemoglobin A1C 4.3 - 5.6 % 8.2 (H) 11.0 (H) 11.5 (H) Estimated Average Glucose mg/dL 189 269 283 Hemoglobin A1C (%) Date Value 06/30/2022 11.5 01/21/2022 11.0 09/20/2021 8.2 05/29/2021 11.0 11/12/2020 10.3 07/03/2020 11.8 10/13/2018 11.2 Hemoglobin A1C (POCT) (%) Date Value 01/08/2019 10.6 Assessment and Plan Encounter Diagnosis ICD-10-CM 1. Type 2 diabetes mellitus with hyperglycemia, without long-term current use of insulin ([facility]) E11.65 BASIC METABOLIC PNL HGB A1C Improving with present meds and management.Continues close follow up with pharmD 2. Mixed hyperlipidemia E78.2 rosuvastatin (CRESTOR) 5 mg tablet Stay on Crestor 3. HTN (hypertension), benign I10 BASIC METABOLIC PNL Doing well. Continue management 4. PAF (paroxysmal atrial fibrillation) ([facility]) I48.0 5. Bilateral leg edema R60.0 6. Class 3 severe obesity due to excess calories with serious comorbidity and body mass index (BMI) of 45.0 to 49.9 in adult ([facility]) E66.01 Z68.42 Additional Medical Conditions Last edited 10/06/22 16:22 EST by Estephania Rodriguez MD Above issues addressed with patient. Patient involved in shared decision making for management of medical issues. History and medications reviewed. Epic updated as needed Refills and/or prescriptions taken care of and meds adjusted as indicated after reviewed history, exam and labs. Health Maintenance reviewed. Updated record and/or ordered tests as recorded. Encouraged on efforts at healthy diet and regular exercise and adequate sleep. Needs to keep working on diet and exercise with lifestyle changes for effective weight loss as well as control of DM, and control of BP and lipids. Stable on current meds. Further evaluation and treatment as indicated. Estephania Rodriguez MD documented in this encounter [facility] 09-19-2022 Miscellaneous Notes Noted. Thank you - Mariam Ellington, PharmD., CACP PATIENT CALL Patient called call center regarding message. Patient called and stated she received message. Verified with patient that next lab will be on 10/02. She stated she will try to go around that date but may be a couple days before or after. Patient then asked me again what the dosing was. Read the following: Full warfarin instructions: 09/19: 2.5 mg; Otherwise 3.75 mg every Mon, Fri; 2.5 mg all other days; Starting 09/15/2022 Patient then asked why it is so high and I advised I could have [facility] call her back. She said it was okay and they didn't have to call. Will route to [facility] as FYI. Kori Sauer (Glass Robot Operator) [facility] Ambulatory Pharmacy Anticoagulation Clinic Anticoagulation Episode Summary Anticoagulation Care Providers Provider Role Specialty Phone number Estephania Rodriguez MD Referring Internal Medicine [phone] Wendy Forte is a 67 year old year old female patient being evaluated today for a Telemanagement visit. Patient is currently on the following anticoagulant(s) Warfarin. Labs PT INR (no units) Date Value 12/13/2021 2.2 11/01/2021 2.2 10/15/2021 1.9 INR (no units) Date Value 09/18/2022 3.3 08/25/2022 2.2 08/09/2022 1.4 Hemoglobin (g/dL) Date Value 06/30/2022 12.5 07/31/2021 10.4 Hematocrit (%) Date Value 06/30/2022 38.8 07/31/2021 32.1 Platelet Count (k/uL) Date Value 06/30/2022 274 07/31/2021 405 Creatinine (mg/dL) Date Value 07/26/2022 0.83 06/30/2022 0.90 07/31/2021 0.65 11/12/2020 0.71 07/03/2020 0.65 Bilirubin, Total (mg/dL) Date Value 06/30/2022 0.3 07/31/2021 0.4 ALT (U/L) Date Value 06/30/2022 33 07/31/2021 16 AST (U/L) Date Value 06/30/2022 26 07/31/2021 17 Estimated Creatinine Clearance: 76.2 mL/min (based on SCr of 0.83 mg/dL). 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 Paf (paroxysmal atrial fibrillation) (hcc) Anticoagulation Episode Summary Current INR goal: 2.0-3.0 Assessment: INR result of 3.3 is SUPRAtherapeutic due to: unknown cause - did not speak to patient Plan: Current Warfarin Dosing As of 09/15/2022 Full warfarin instructions: 09/19: 2.5 mg; Otherwise 3.75 mg every Mon, Fri; 2.5 mg all other days; Starting 09/15/2022 Left voice message Advised patient to decrease dose for 1 day only then resume weekly regimen Next home INR check scheduled on 10/02/2022 Mariam Ellington [facility] Clinical Pharmacist, Pharmacy Anticoagulation Clinic Pharmacy Antico[facility] Clinic Pager: [phone]. INR completed. Patient was due to test INR today. Will continue to monitor for results. documented in this encounter [facility] 09-10-2022 Miscellaneous Notes Forms prepped and sent to [employer]ha [employer] to assist with mailing to patient. Patient will return forms to PCP office on 10/06. Ezio High PharmD, BCACP Primary Care Clinical Pharmacist [employer] sent [employer] forms for patient humalog and basaglar. Germania mailed forms to patient home to complete and sign. attached HIPPA release form as well for patient to sign for Chrissy Cares. Patient called and spoke with [place] in regards to Chrissy Cares PAP. Patient notes that [employer] had told her that she was mailing her Chrissy application for her to complete for her humalog. Patient states that she has never received her portion of [employer] Cares application. Patient also has been receiving Lantus through [employer] PAP. Patient notes that she believes that [employer] as going to help her with Lantus alternative that Chrissy PAP covers. Sw noted that she would send message to [employer] to let her know that patient has not received Chrissy application. If [employer] would like to send Sw the application that she has for patient, Sw would mail it to patient home. Patient reports that she has appt on 10/06/[address] Rodriguez, so she would like to receive application and bring it in with her to office visit for Dr. Rodriguez to complete her portion. documented in this encounter [facility] 08-25-2022 Miscellaneous Notes [facility] Ambulatory Pharmacy Anticoagulation Clinic Anticoagulation Episode Summary Anticoagulation Care Providers Provider Role Specialty Phone number Estephania Rodriguez MD Referring Internal Medicine [phone] Wendy Forte is a 67 year old year old female patient being evaluated today for a Telemanagement visit. Patient is currently on the following anticoagulant(s) Warfarin. Labs PT INR (no units) Date Value 12/13/2021 2.2 11/01/2021 2.2 10/15/2021 1.9 INR (no units) Date Value 08/25/2022 2.2 08/09/2022 1.4 06/30/2022 1.7 Estimated Creatinine Clearance: 76.2 mL/min (based on SCr of 0.83 mg/dL). 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: Anticoagulation Episode Summary Current INR goal: 2.0-3.0 Assessment: INR result of 2.2 is therapeutic Plan: Current Warfarin Dosing As of 08/25/2022 Full warfarin instructions: 3.75 mg every Mon, Fri; 2.5 mg all other days; Starting 08/25/2022 Left voice message Advised patient to continue current weekly dose as noted above Next INR check due on 09/15/2022 Patient instructed to call [facility] at [phone] with any questions or concerns. Jw Roberts RPh Clinical Pharmacist, Pharmacy Anticoagulation Clinic Pharmacy [facility] Pager: [phone] documented in this encounter [facility] 08-11-2022 Miscellaneous Notes [facility]ulatory Pharm[facility] Anticoagulation Clinic Anticoagulation Episode Summary Anticoagulation Care Providers Provider Role Specialty Phone number Estephania Rodriguez MD Referring Internal Medicine [phone] Wendy Forte is a 67 year old year old female patient being evaluated today for a Telemanagement visit. Patient is currently on the following anticoagulant(s) Warfarin. Labs PT INR (no units) Date Value 12/13/2021 2.2 11/01/2021 2.2 10/15/2021 1.9 INR (no units) Date Value 08/09/2022 1.4 06/30/2022 1.7 06/06/2022 2.0 Estimated Creatinine Clearance: 76.2 mL/min (based on SCr of 0.83 mg/dL). 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: Anticoagulation Episode Summary Current INR goal: 2.0-3.0 Assessment: INR result of 1.4 is SUBtherapeutic due to: unknown cause - did not speak to patient Plan: Current Warfarin Dosing As of 08/11/2022 Full warfarin instructions: 3.75 mg every Mon, Fri; 2.5 mg all other days; Starting 08/11/2022 Left voice message Advised patient to increase total weekly regimen Next INR check due on 09/02/2022 Patient instructed to call [facility] at [phone] with any questions or concerns. Jw Roberts RPh Clinical Pharmacist, Pharmacy Anticoagulation Clinic Pharm[facility] Pager: [phone] documented in this encounter [facility] 08-05-2022 Miscellaneous Notes noted Patient calls and notified of that she should be taking the rosuvastatin and not atorvastatin. Patient was unaware that the atorvastatin was discontinued and was taking both medications. Patient will only take rosuvastatin from now on. Anabella Roche RN VM left for patient to call PCP office for provider's message. Veronica Mann RN No, she is taking rosuvastatin now, not atorvastatin. Patient called to refill atorvastatin; noted as discontinued med in Epic. Used [facility]. Please review and advise patient if she is still supposed to be taking it. [phone]. documented in this encounter [facility] 08-04-2022 Miscellaneous Notes Last office visit: 06/06/22 Next appointment scheduled: 10/06/22 Patient phones requesting refills as follows: Requested Prescriptions Pending Prescriptions Disp Refills IFEREX 150 150 mg iron capsule 90 capsule 3 Sig: Take 1 capsule by mouth once daily. Please review and advise. Shantell Lorenzo LPN Patient has been identified by name and date of : Yes Requested Prescriptions Pending Prescriptions Disp Refills IFEREX 150 150 mg iron capsule 90 capsule 3 Sig: Take 1 capsule by mouth once daily. RX INSTRUCTIONS: Patient aware RX will be sent to pharmacy. No need to notify patient. Oriana Pearl Pss documented in this encounter [facility] 07-30-2022 Miscellaneous Notes Spoke with patient. Given message from provider's office. Patient verbalizes understanding. Ann Cho RN Left message for return call. Please let patient know lab work is within acceptable ranges. Thank you Janine Dumont APRN.CENTRAL OFFICE INSTALLER documented in this encounter [facility] 07-25-2022 History of Present illness Narrative Primary Care Pharmacy Visit CC (Reason for Consult): DM Goal: A1c<7% Last Collaborating Physician/AUDITING SPECIALIST Visit: 06/06/22 Wendy Forte is a 67 year old female presenting for follow up visit by telephone. Patient consents to pharmacy collaborative practice agreement. At last visit with pharmacy on 07/11/22 the following changes were made: Humalog dose was added with breakfast in addition to dinner dose. INTERIM HISTORY: Patient reports overall feeling better Has adjusted her Humalog dose Feels it has made big improvement in her BG readings and has a lot more energy Denies any log BG No trouble with remembering doses of insulin or other medications Current DM Medications: Metformin ER 500 mg tabs - 1000 mg BID Lantus 33 units once daily at bedtime Humalog 6 units before breakfast and before dinner Past DM medications: Glimepiride Avandia GLYCEMIC CONTROL: Glucometer present at visit: readings read over the phone SMBG s: Date Fasting AM 2 hr PP Before Lunch 2 hr PP Before Dinner 2 hr PP Bedtime 07/25 134 156 07/24 119 160 07/23 160 102 07/22 113 107 07/21 113 AVG 128 131 Hypoglycemia: denies ROS: Patient denies CP, SOB, CRUZ, blurred vision, dizziness or lightheadedness Patient denies nausea, vomiting, diarrhea, abdominal pain Patient denies symptoms of hypoglycemia (sweating, anxiety, palpitations, hunger, and tremor) Patient denies symptoms of hyperglycemia (polyuria, polydipsia, polyphagia) Patient denies potential medication adverse effects MEDICATIONS: Pill bottles are not present Adherence: denies missed doses Pharmacy: [facility] in [place] Rx coverage: Medicare A and B only Affordability: no issues; gets Lantus through [facility] Htn (Hypertension), Benign Hyperlipidemia Type II Diabetes Mellitus, Uncontrolled Urinary Frequency Panic Disorder Without Agoraphobia Gerd (Gastroesophageal Reflux Disease) Heart Palpitations Obesity, Morbid, Bmi 40.0-49.9 ([facility]) Type 2 Diabetes Mellitus With Hyperglycemia, Without Long-Term Current Use of Insulin (Hcc) Paf (Paroxysmal Atrial Fibrillation) (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 PAST MEDICAL HISTORY Diagnosis Date Adjustment disorder with depressed mood Hyperlipidemia 06/13/2009 Obesity, morbid, BMI 40.0-49.9 ([facility]) Other and unspecified hyperlipidemia Type II or unspecified type diabetes mellitus without mention of complication, not stated as uncontrolled Unspecified essential hypertension Urinary frequency ALLERGIES Allergen Reactions Sulfa (Sulfonamide * Rash BLISTERS Current Outpatient Medications Medication Sig insulin lispro (HUMALOG KWIKPEN INSULIN) 100 unit/mL Inject 6 Units subcutaneously daily with breakfast AND 6 Units daily with dinner. metFORMIN ER (GLUCOPHAGE XR) 500 mg 24 hr tablet Take 2 tablets by mouth twice daily with meals. clopidogrel (PLAVIX) 75 mg tablet Take 1 tablet by mouth once daily. FLUoxetine (PROZAC) 40 mg capsule Take 1 capsule by mouth once daily. warfarin (COUMADIN) 2.5 mg tablet Start with 2.5 mg daily. Will titrate dose as indicated insulin glargine (LANTUS SOLOSTAR U-100 INSULIN) 100 unit/mL (3 mL) Inject 33 Units subcutaneously daily at bedtime. Patient Assistance Med rosuvastatin (CRESTOR) 5 mg tablet Take 1 tablet by mouth daily at bedtime. potassium chloride ER (K-DUR, KLOR-CON) 20 mEq tablet Take 2 tablets by mouth twice daily. metoprolol tartrate, short acting, (LOPRESSOR) 50 mg tablet Take 1 tablet by mouth twice daily. IFEREX 150 150 mg iron capsule Take 1 capsule by mouth once daily. blood sugar diagnostic (FREESTYLE TEST) test strip Check 4 time daily as directed. DX E11.65, Insulin: Yes Lancets lancets Test blood sugar(s) 4 times daily as directed. Dx: diabetes E11.65. Insulin: Yes insulin needles, DISPOSABLE, (PEN NEEDLE) 31 gauge x 5/16 ndle Use one needle per dose. One per day. COMPOUNDED PRESCRIPTION Diabetic shoes with insoles. DX E11.65, E11,49 COMPOUNDED PRESCRIPTION Hinged knee brace for left knee--Don Janine OA Reaction Web Knee brace. Dx Knee pain and decreased mobility secondary to degenerative arthritis 715.96 COMPOUNDED PRESCRIPTION ascensia lancets No current facility-administered medications for this visit. EXAM: Last 3 Encounter BP Readings: Date: BP: 06/06/2022 124/70 10/15/2021 114/62 08/28/2021 138/84 Wt: 111.9 kg (246 lb 9.6 oz) BMI: 46.59 kg/(m^2) LABS: Lab Results Component Value Date HBA1C 11.5 06/30/2022 HBA1C 11.0 01/21/2022 HBA1C 8.2 09/20/2021 HBA1C 11.0 05/29/2021 HBA1C 10.3 11/12/2020 CMP: Glucose 393 06/30/2022 BUN 27 06/30/2022 Creatinine 0.90 06/30/2022 Sodium 134 06/30/2022 Potassium 5.6 06/30/2022 Chloride 98 06/30/2022 CO2 23 06/30/2022 Protein, Total 7.7 06/30/2022 Albumin 4.1 06/30/2022 Calcium 9.9 06/30/2022 Alkaline Phosphatase 138 06/30/2022 Bilirubin, Total 0.3 06/30/2022 AST 26 06/30/2022 ALT 33 06/30/2022 Serum creatinine: 0.9 mg/dL 06/30/22 1242 Estimated creatinine clearance: 70.3 mL/min No results found for: GFR eGFR- (no units) Date Value 07/31/2021 >60 Lab Results Component Value Date CHOL 138 06/30/2022 CHOL 148 05/29/2021 LDL 60 06/30/2022 LDL 69 05/29/2021 HDL 34 06/30/2022 HDL 34 05/29/2021 TG 220 06/30/2022 TG 225 05/29/2021 The 10-year ASCVD risk score (Zeinab MADERA, et al., 2019) is: 16% Values used to calculate the score: Age: 67 years Sex: Female Is Non- : No Diabetic: Yes Tobacco smoker: No Systolic Blood Pressure: 124 mmHg Is BP treated: Yes HDL Cholesterol: 34 mg/dL Total Cholesterol: 138 mg/dL Albumin/Creat Ratio (mg/g) Date Value 06/30/2022 38 (H) PHARMACOTHERAPY ASSESSMENT/PLAN: 1. Type 2 diabetes mellitus with other specified complication, with long-term current use of insulin (HCC) - ICD9: 250.80, V58.67, ICD10: E11.69, Z79.4 A1c goal < 7%; not at goal (last A1c 11.5%); SMBG largely improved on current regimen. Tolerating current medications well with no low BG or ADEs/Today, will continue current regimen. Renal function appropriate for continued use Continue Humalog 6 units before breakfast and before dinner Continue Metformin ER 500 mg tabs - 1000 mg BID Continue Lantus 33 units once daily at bedtime Follow up: Patient is scheduled to see PCP team on 09/26/21. Patient to follow up with pharmD on 10/17/22. Patient verbalized understanding of instructions. Ezio High PharmD, BCACP Primary Care Clinical Pharmacist The majority of the pharmacy visit (> 50%) was spent counseling and/or coordinating care for the patient. [Telephonic] time was 20 minutes. documented in this encounter [facility] 07-23-2022 Miscellaneous Notes BMP does include a potassium. PATIENT NOTIFIED OF SAME. Patient calling asking if she need to have her potassium drawn this Thursday when she is in for her BMP? Please advise and place order if needed. documented in this encounter [facility] 07-11-2022 History of Present illness Narrative Primary Care Pharmacy Visit CC (Reason for Consult): DM Goal: A1c<7% Last Collaborating Physician/AUDITING SPECIALIST Visit: 06/06/22 Wendy Forte is a 67 year old female presenting for follow up visit by telephone. Patient consents to pharmacy collaborative practice agreement. At last visit with pharmacy on 07/04 the following changes were made: Humalog was initiated. INTERIM HISTORY: Patient reports readings are improved but remain elevated Fasting readings in low 200s while post prandial readings remain elevated in the high 200s Has started Humalog with dinner, injections going ok No low BG readings Has met with rehabilitation engineer and working to apply the materials she has shared with her to follow the plate method Current DM Medications: Metformin ER 500 mg tabs - 1000 mg BID Lantus 33 units once daily at bedtime Humalog 6 units before dinner Past DM medications: Glimepiride Avandia Preventative Medications: On VICTOR MANUEL/ARB: Yes On Statin: Yes GLYCEMIC CONTROL: Glucometer present at visit: No SMBG s: No BG readings to review Hypoglycemia: denies ROS: Patient denies CP, SOB, CRUZ, blurred vision, dizziness or lightheadedness Patient denies nausea, vomiting, diarrhea, abdominal pain Patient denies symptoms of hypoglycemia (sweating, anxiety, palpitations, hunger, and tremor) Patient denies symptoms of hyperglycemia (polyuria, polydipsia, polyphagia) Patient denies potential medication adverse effects MEDICATIONS: Pill bottles are not present Adherence: denies missed doses Pharmacy: [facility] in [place] Rx coverage: Medicare A and B only Affordability: no issues; gets Lantus through ACTIVE PROBLEM LIST Htn (Hypertension), Benign Hyperlipidemia Type II Diabetes Mellitus, Uncontrolled Urinary Frequency Panic Disorder Without Agoraphobia Gerd (Gastroesophageal Reflux Disease) Heart Palpitations Obesity, Morbid, Bmi 40.0-49.9 (Formerly [facility]) Type 2 Diabetes Mellitus With Hyperglycemia, Without Long-Term Current Use of Insulin ([facility]) Paf (Paroxysmal Atrial Fibrillation) (Formerly [facility]) 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 Please apply one time free coucher : JOSE#[id number] [id number] GROUP#[id number] IDENTIFICATION#[id number] metFORMIN ER (GLUCOPHAGE XR) 500 mg 24 hr tablet Take 2 tablets by mouth twice daily with meals. clopidogrel (PLAVIX) 75 mg tablet Take 1 tablet by mouth once daily. FLUoxetine (PROZAC) 40 mg capsule Take 1 capsule by mouth once daily. warfarin (COUMADIN) 2.5 mg tablet Start with 2.5 mg daily. Will titrate dose as indicated insulin glargine (LANTUS SOLOSTAR U-100 INSULIN) 100 unit/mL (3 mL) Inject 33 Units subcutaneously daily at bedtime. Patient Assistance Med rosuvastatin (CRESTOR) 5 mg tablet Take 1 tablet by mouth daily at bedtime. potassium chloride ER (K-DUR, KLOR-CON) 20 mEq tablet Take 2 tablets by mouth twice daily. metoprolol tartrate, short acting, (LOPRESSOR) 50 mg tablet Take 1 tablet by mouth twice daily. IFEREX 150 150 mg iron capsule Take 1 capsule by mouth once daily. blood sugar diagnostic (FREESTYLE TEST) test strip Check 4 time daily as directed. DX E11.65, Insulin: Yes Lancets lancets Test blood sugar(s) 4 times daily as directed. Dx: diabetes E11.65. Insulin: Yes insulin needles, DISPOSABLE, (PEN NEEDLE) 31 gauge x 5/16 ndle Use one needle per dose. One per day. COMPOUNDED PRESCRIPTION Diabetic shoes with insoles. DX E11.65, E11,49 COMPOUNDED PRESCRIPTION Hinged knee brace for left knee--Don Janine OA Reaction Web Knee brace. Dx Knee pain and decreased mobility secondary to degenerative arthritis 715.96 COMPOUNDED PRESCRIPTION ascensia lancets No current facility-administered medications for this visit. EXAM: Last 3 Encounter BP Readings: Date: BP: 06/06/2022 124/70 10/15/2021 114/62 08/28/2021 138/84 Wt: 111.9 kg (246 lb 9.6 oz) BMI: 46.59 kg/(m^2) LABS: Lab Results Component Value Date HBA1C 11.5 06/30/2022 HBA1C 11.0 01/21/2022 HBA1C 8.2 09/20/2021 HBA1C 11.0 05/29/2021 HBA1C 10.3 11/12/2020 CMP: Glucose 393 06/30/2022 BUN 27 06/30/2022 Creatinine 0.90 06/30/2022 Sodium 134 06/30/2022 Potassium 5.6 06/30/2022 Chloride 98 06/30/2022 CO2 23 06/30/2022 Protein, Total 7.7 06/30/2022 Albumin 4.1 06/30/2022 Calcium 9.9 06/30/2022 Alkaline Phosphatase 138 06/30/2022 Bilirubin, Total 0.3 06/30/2022 AST 26 06/30/2022 ALT 33 06/30/2022 Serum creatinine: 0.9 mg/dL 06/30/22 1242 Estimated creatinine clearance: 70.3 mL/min No results found for: GFR eGFR- (no units) Date Value 07/31/2021 >60 Lab Results Component Value Date CHOL 138 06/30/2022 CHOL 148 05/29/2021 LDL 60 06/30/2022 LDL 69 05/29/2021 HDL 34 06/30/2022 HDL 34 05/29/2021 TG 220 06/30/2022 TG 225 05/29/2021 The 10-year ASCVD risk score (Zeinab MADERA, et al., 2019) is: 16% Values used to calculate the score: Age: 67 years Sex: Female Is Non- : No Diabetic: Yes Tobacco smoker: No Systolic Blood Pressure: 124 mmHg Is BP treated: Yes HDL Cholesterol: 34 mg/dL Total Cholesterol: 138 mg/dL Albumin/Creat Ratio (mg/g) Date Value 06/30/2022 38 (H) PHARMACOTHERAPY ASSESSMENT/PLAN: 1. Type 2 diabetes mellitus with other specified complication, with long-term current use of insulin (HCC) - ICD9: 250.80, V58.67, ICD10: E11.69, Z79.4 A1c goal < 7%; not at goal (last A1c 11.5%); SMBG elevated on current regimen. Patient has started Humalog with dinner meal and readings remain elevated. Today, will add Humalog with breakfast meal. Renal function appropriate for continued use Add Humalog 6 units before breakfast and before dinner Continue Metformin ER 500 mg tabs - 1000 mg BID Continue Lantus 33 units once daily at bedtime - INSULIN LISPRO (U-100) 100 UNIT/ML SUBCUTANEOUS PEN Follow up: Patient is scheduled to see PCP team on 09/26/22. Patient to follow up with pharmD on 07/25/22. Patient verbalized understanding of instructions. Ezio High PharmD, BCACP Primary Care Clinical Pharmacist The majority of the pharmacy visit (> 50%) was spent counseling and/or coordinating care for the patient. [Telephonic] time was 20 minutes. documented in this encounter [facility] 07-10-2022 Miscellaneous Notes Pt called and is notified of message. Pt voices understanding and will be in to get medication either today or tomorrow. Kori Pendleton RN Rec'd 2 boxes of lantsu 300IU/3ml inj solo Lot number is [id number] Exp date is 08/06/2024. Thi si ready for cotton picker on the second floor fridge on the left side. Message left for pt to return call to a nurse. documented in this encounter [facility] 07-07-2022 Miscellaneous Notes Patient had distance health appt with [facility] on 07/04 to discuss below. See [facility] 07/04 distance health notes. Called and Left voicemail for patient. Encouraged patient to return call to PSS to set up pharmacy phone visit to discuss medication options. Patient last followed with pharmacy on 01/23/22. We discussed GLP1 RA at that time but patient was hesitant to start GLP1 therapy and preferred to stay on current regimen. A1c remains elevated, if patient is not in agreement with starting a GLP1 due to concern for side effect profile, I recommend considering starting meal time insulin at this time. Ezio High RPh Form rec'd and completed and faxed back. Please see pts question regarding alternative. Sw spoke with patient and she notes no changes to insurance or Lantus dose. Sw noted that she has called [employer] to request refill form for Lantus. Patient asking if there is alternative to Lantus and Ozempic through [employer] for future reference. Patient wondering about Ozempic alternative. Patient notes that [facility] has spoken with patient in the past of Ozempic and patient is not sure about Ozempic due to the side effects. Patient wondering about other insulin options that would help bring her A1C down. Germania also provided patient with [employer] phone number since it is open enrollment for Medicare. Sw received message from patient stating that she is going to need refill on her Lantus-[employer] [facility]. SW called [employer] and requested refill reorder form to be faxed to Dr. Rodriguez office. Germania called patient back and left message to return Sw call to discuss above and would like to verify no insurance changes before sending form back to [employer]. documented in this encounter [facility] 07-04-2022 Miscellaneous Notes Patient notified. Please let patient know her potassium level is elevated. Hold her potassium supplement and we will recheck in 1 week. Triglycerides are elevated and this is probably because blood sugars are out of control. Continue with plans to see clinical pharmacology and dietitian to try and improve glucose control. Take care Janine Dumont APRN.NOLAN documented in this encounter [facility] 07-04-2022 History of Present illness Narrative Primary Care Pharmacy Visit CC (Reason for Consult): DM Goal: A1c<7% Last Collaborating Physician/AUDITING SPECIALIST Visit: 06/06/22 Wendy Forte is a 67 year old female presenting for follow up visit by telephone. Patient consents to pharmacy collaborative practice agreement. At last visit with NOLAN on 06/06/22 the following changes were made: consult to nutrition therapy was ordered and labs were ordered. INTERIM HISTORY: Reports BG readings remain elevated in the 200s Typically checking 2 times daily Did not want to start Ozempic, did not like reported ADEs Would like to try a different medication for DM Is open to starting a meal time insulin Current DM Medications: Metformin ER 500 mg tabs - 1000 mg BID Lantus 33 units once daily Ozempic 0.25 mg once weekly - Never started Past DM medications: Glimepiride Avandia Preventative Medications: On VICTOR MANUEL/ARB: Yes On Statin: Yes GLYCEMIC CONTROL: Glucometer present at visit: No SMBG s: No SMBG log to review Hypoglycemia: denies ROS: Patient denies CP, SOB, CRUZ, blurred vision, dizziness or lightheadedness Patient denies nausea, vomiting, diarrhea, abdominal pain Patient denies symptoms of hypoglycemia (sweating, anxiety, palpitations, hunger, and tremor) Patient denies symptoms of hyperglycemia (polyuria, polydipsia, polyphagia) Patient denies potential medication adverse effects MEDICATIONS: Pill bottles are not present Adherence: denies missed doses Pharmacy: [facility] in [place] Rx coverage: Medicare A and B only Affordability: no issues; gets Lantus through ACTIVE PROBLEM LIST Htn (Hypertension), Benign Hyperlipidemia Type II Diabetes Mellitus, Uncontrolled Urinary Frequency Panic Disorder Without Agoraphobia Gerd (Gastroesophageal Reflux Disease) Heart Palpitations Obesity, Morbid, Bmi 40.0-49.9 (Former[facility]) Type 2 Diabetes Mellitus With Hyperglycemia, Without Long-Term Current Use of Insulin (Hcc) Paf (Paroxysmal Atrial Fibrillation) (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 [facility]) 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 clopidogrel (PLAVIX) 75 mg tablet Take 1 tablet by mouth once daily. FLUoxetine (PROZAC) 40 mg capsule Take 1 capsule by mouth once daily. warfarin (COUMADIN) 2.5 mg tablet Start with 2.5 mg daily. Will titrate dose as indicated insulin glargine (LANTUS SOLOSTAR U-100 INSULIN) 100 unit/mL (3 mL) Inject 33 Units subcutaneously daily at bedtime. Patient Assistance Med rosuvastatin (CRESTOR) 5 mg tablet Take 1 tablet by mouth daily at bedtime. potassium chloride ER (K-DUR, KLOR-CON) 20 mEq tablet Take 2 tablets by mouth twice daily. metoprolol tartrate, short acting, (LOPRESSOR) 50 mg tablet Take 1 tablet by mouth twice daily. IFEREX 150 150 mg iron capsule Take 1 capsule by mouth once daily. blood sugar diagnostic (FREESTYLE TEST) test strip Check 4 time daily as directed. DX E11.65, Insulin: Yes Lancets lancets Test blood sugar(s) 4 times daily as directed. Dx: diabetes E11.65. Insulin: Yes insulin needles, DISPOSABLE, (PEN NEEDLE) 31 gauge x 5/16 ndle Use one needle per dose. One per day. COMPOUNDED PRESCRIPTION Diabetic shoes with insoles. DX E11.65, E11,49 COMPOUNDED PRESCRIPTION Hinged knee brace for left knee--Don Janine OA Reaction Web Knee brace. Dx Knee pain and decreased mobility secondary to degenerative arthritis 715.96 COMPOUNDED PRESCRIPTION ascensia lancets No current facility-administered medications for this visit. EXAM: Last 3 Encounter BP Readings: Date: BP: 06/06/2022 124/70 10/15/2021 114/62 08/28/2021 138/84 Wt: 111.9 kg (246 lb 9.6 oz) BMI: 46.59 kg/(m^2) LABS: Lab Results Component Value Date HBA1C 11.5 06/30/2022 HBA1C 11.0 01/21/2022 HBA1C 8.2 09/20/2021 HBA1C 11.0 05/29/2021 HBA1C 10.3 11/12/2020 CMP: Glucose 393 06/30/2022 BUN 27 06/30/2022 Creatinine 0.90 06/30/2022 Sodium 134 06/30/2022 Potassium 5.6 06/30/2022 Chloride 98 06/30/2022 CO2 23 06/30/2022 Protein, Total 7.7 06/30/2022 Albumin 4.1 06/30/2022 Calcium 9.9 06/30/2022 Alkaline Phosphatase 138 06/30/2022 Bilirubin, Total 0.3 06/30/2022 AST 26 06/30/2022 ALT 33 06/30/2022 Serum creatinine: 0.9 mg/dL 06/30/222 Estimated creatinine clearance: 70.3 mL/min No results found for: GFR eGFR- (no units) Date Value 07/31/2021 >60 Lab Results Component Value Date CHOL 138 06/30/2022 CHOL 148 05/29/2021 LDL 60 06/30/2022 LDL 69 05/29/2021 HDL 34 06/30/2022 HDL 34 05/29/2021 TG 220 06/30/2022 TG 225 05/29/2021 The 10-year ASCVD risk score (Zeinab MADERA, et al., 2019) is: 16% Values used to calculate the score: Age: 67 years Sex: Female Is Non- : No Diabetic: Yes Tobacco smoker: No Systolic Blood Pressure: 124 mmHg Is BP treated: Yes HDL Cholesterol: 34 mg/dL Total Cholesterol: 138 mg/dL Albumin/Creat Ratio (mg/g) Date Value 06/30/2022 38 (H) PHARMACOTHERAPY ASSESSMENT/PLAN: 1. Type 2 diabetes mellitus with other specified complication, with long-term current use of insulin (HCC) - ICD9: 250.80, V58.67, ICD10: E11.69, Z79.4 A1c goal < 7%; not at goal (last A1c 11.5%); SMBG elevated on current regimen. Patient did not try GLP1 RA as worries about side effect profile, prefers to try different regimen. Patient would benefit from initiation of meal time insulin. Renal function appropriate for continued use Start Humalog 6 units before dinner Continue metformin ER 500 mg tabs - 1000 mg BID, Lantus 33 units once daily - INSULIN LISPRO (U-100) 100 UNIT/ML SUBCUTANEOUS PEN Follow up: Patient is scheduled to see PCP team on 09/26/22. Patient to follow up with pharmD on 07/25/22. Patient verbalized understanding of instructions. Ezio High PharmD, BCACP Primary Care Clinical Pharmacist The majority of the pharmacy visit (> 50%) was spent counseling and/or coordinating care for the patient. [Telephonic] time was 22 minutes. documented in this encounter [facility] 07-01-2022 Miscellaneous Notes [facility] Ambulatory Pharmacy Anticoagulation Clinic Anticoagulation Episode Summary Anticoagulation Care Providers Provider Role Specialty Phone number Estephania Rodriguez MD Referring Internal Medicine [phone] Wendy Fotre is a 67 year old year old female patient being evaluated today for a Lab INR. Patient is currently on the following anticoagulant(s) Warfarin. Labs PT INR (no units) Date Value 12/13/2021 2.2 11/01/2021 2.2 10/15/2021 1.9 INR (no units) Date Value 06/30/2022 1.7 06/06/2022 2.0 05/16/2022 2.1 Hemoglobin (g/dL) Date Value 06/30/2022 12.5 07/31/2021 10.4 Hematocrit (%) Date Value 06/30/2022 38.8 07/31/2021 32.1 Platelet Count (k/uL) Date Value 06/30/2022 274 07/31/2021 405 Creatinine (mg/dL) Date Value 07/31/2021 0.65 11/12/2020 0.71 07/03/2020 0.65 Bilirubin, Total (mg/dL) Date Value 07/31/2021 0.4 ALT (U/L) Date Value 07/31/2021 16 AST (U/L) Date Value 07/31/2021 17 CrCl cannot be calculated (Patient's most recent lab result is older than the maximum 180 days allowed.). 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: Anticoagulation Episode Summary Current INR goal: 2.0-3.0 Assessment: INR result of 1.7 is SUBtherapeutic due to: unknown cause - did not speak to patient Plan: Current Warfarin Dosing As of 07/01/2022 Full warfarin instructions: 07/01: 5 mg; Otherwise 2.5 mg every day Left voice message Advised patient to increase dose for 1 day only then resume weekly regimen Next lab INR check scheduled on 07/22/2022 Rene Schumacher RPh Clinical Pharmacist, Pharmacy Anticoagulation Clinic Pharmacy Anticoagulation Clinic Pager: [phone]. documented in this encounter [facility] 06-17-2022 History of Present illness Narrative Radiology Service Progress Note PATIENT NAME: Wendy Forte DATE OF SERVICE: June 17, 2022 TIME: 9:44 AM PATIENT IDENTITY VERIFICATION COMPLETED USING TWO (2) IDENTIFIERS: Name and Date of confirmed by patient verbally. FALL SCREENING: Has the patient had 2 falls in the last year or 1 fall with injury or currently using an Ambulatory Assistive Device (Walker, Cane, Wheelchair, Crutches, etc.)? No PATIENT GENDER DATA: Female. status: : No status: NO. PATIENT RELEVANT IMPLANT DATA REVIEWED: Not Applicable RADIOLOGY DEPARTMENT: Bone Density PERIPHERAL IV DATA: Not applicable SIGNED BY: RT Radha(R) June 17, 2022 9:44 AM documented in this encounter [facility] 06-17-2022 Miscellaneous Notes June 17, 2022 PID: [id number] Wendy Forte [address] [place] [address] Dear Ms. Forte, We are pleased to inform you that the results of your recent breast imaging exam on 06/17/2022 are normal. Early detection of cancer is very important. We also understand recommendations regarding breast cancer screening are controversial. Please discuss with your primary care provider which strategy is best for you and whether a mammogram is right for you. Your imaging studies and report will be kept on file at [facility] as part of your permanent medical record and are available for your continuing care. Thank you for allowing us to help in meeting your health care needs. Sincerely, Dr. Gupta Interpreting Radiologist [facility] (Normal over 40) documented in this encounter [facility] 06-06-2022 Miscellaneous Notes Patient went to lab today for INR. Result is still pending. Following up with result tomorrow. Jigna Arana RPh documented in this encounter [facility] 06-06-2022 History of Present illness Narrative CC: Patient presents with: Recheck: Follow up Immunizations: Flu vaccination HPI Wendy Forte is a 67 year old female who presents today for diabetes follow up. DIABETES MELLITUS: Ms. Forte denies excessive thirst or increased frequency of urination, chest pain or dyspnea , numbness, tingling or pain in extremities, new or unusual visual symptoms, low sugar/hypoglycemic reactions, weight loss/gain, lightheadedness/dizziness, and bowel changes/loose stools. Follows a diabetic diet some of the time. She is compliant with medication(s) and is tolerating med(s) without any side effects. She reports checking her glucose on a once a day schedule with sugars in the fasting 150s range. Patient's last HgA1C was Hemoglobin A1C (%) Date Value 01/21/2022 11.0 09/20/2021 8.2 05/29/2021 11.0 ) Last Ophthalmology exam was within the past 3 months and has had recent cataract surgery. Has not seen clinical pharmacology since january and did not start ozempic as prescribed at that time. - Goes to podiatry for nail trimming and excess dryness to feet but has not been there is a long time Patient would like to see a dietitian to discuss a diabetic diet. HTN: Ms. Forte indicates that she is feeling well and denies any symptoms referable to elevated blood pressure. Specifically denies headache, chest pain, palpitations, dyspnea, and peripheral edema. Patient denies any side effects of her medication(s) and is compliant with their regimen. She does not check BP's generally. Wendy denies regular aerobic exercise. She watches her diet for sodium, low fat and low cholesterol some of the time. Last 3 Encounter BP Readings: Date: BP: 06/06/2022 124/70 10/15/2021 114/62 08/28/2021 138/84 REVIEW OF SYSTEMS General: no fevers, no chills, no night sweats, no recurrent infections, no change in appetite, no change in energy, and no significant changes in weight Respiratory: no cough, no wheezing, no shortness of breath, no hemoptysis Cardiovascular: no chest pain, no chest pressure, no palpitations, and no swelling GI: No nausea, vomiting, or diarrhea Endocrine: no fatigue, no cold intolerance, no heat intolerance, no polyuria, no polyphagia, and no polydipsia Neurologic: No headache, weakness, numbness, tingling, dizziness, syncope. PAST MEDICAL HISTORY Diagnosis Date Adjustment disorder with depressed mood Hyperlipidemia 06/13/2009 Obesity, morbid, BMI 40.0-49.9 (HCC) Other and unspecified hyperlipidemia Type II or unspecified type diabetes mellitus without mention of complication, not stated as uncontrolled Unspecified essential hypertension Urinary frequency PAST SURGICAL HISTORY Procedure Laterality Date BMD BONE DENSITY 12/23/2002 CHOLECYSTECTOMY 03/1979 Open cholecystectomy ALLERGIES Sulfa (Sulfonamide Antibiotics) MEDICATIONS metFORMIN ER (GLUCOPHAGE XR) 500 mg 24 hr tablet Take 2 tablets by mouth twice daily with meals. clopidogrel (PLAVIX) 75 mg tablet Take 1 tablet by mouth once daily. FLUoxetine (PROZAC) 40 mg capsule Take 1 capsule by mouth once daily. warfarin (COUMADIN) 2.5 mg tablet Start with 2.5 mg daily. Will titrate dose as indicated semaglutide (OZEMPIC) 0.25 mg or 0.5 mg(2 mg/1.5 mL) pen injector Inject 0.25 mg subcutaneously one time a week. insulin glargine (LANTUS SOLOSTAR U-100 INSULIN) 100 unit/mL (3 mL) Inject 33 Units subcutaneously daily at bedtime. Patient Assistance Med rosuvastatin (CRESTOR) 5 mg tablet Take 1 tablet by mouth daily at bedtime. potassium chloride ER (K-DUR, KLOR-CON) 20 mEq tablet Take 2 tablets by mouth twice daily. metoprolol tartrate, short acting, (LOPRESSOR) 50 mg tablet Take 1 tablet by mouth twice daily. atorvastatin (LIPITOR) 10 mg tablet Take 1 tablet by mouth daily at bedtime. IFEREX 150 150 mg iron capsule Take 1 capsule by mouth once daily. blood sugar diagnostic (FREESTYLE TEST) test strip Check 4 time daily as directed. DX E11.65, Insulin: Yes Lancets lancets Test blood sugar(s) 4 times daily as directed. Dx: diabetes E11.65. Insulin: Yes insulin needles, DISPOSABLE, (PEN NEEDLE) 31 gauge x 5/16 ndle Use one needle per dose. One per day. COMPOUNDED PRESCRIPTION Diabetic shoes with insoles. DX E11.65, E11,49 COMPOUNDED PRESCRIPTION Hinged knee brace for left knee--Don Janine OA Reaction Web Knee brace. Dx Knee pain and decreased mobility secondary to degenerative arthritis 715.96 COMPOUNDED PRESCRIPTION ascensia jazmyne FAMILY HISTORY Problem Relation Age of Onset Diabetes Brother HEART ATTACK,KIDNEY FAILURE Diabetes Father KIDNEY FAILURE Cancer Maternal Grandmother LIVER CANCER Heart Mother QUADRUPLE BIPASS Diabetes Sister Cancer Sister female cancer--told not ovarian cancer; had oophorectomy and having chemo Social History Tobacco Use Smoking status: Former Packs/day: 0.50 Years: 30.00 Pack years: 15.00 Types: Cigarettes Quit date: 09/07/2006 Years since quittin.7 Smokeless tobacco: Never Substance Use Topics Alcohol use: No Drug use: No PHYSICAL EXAM BP 124/70 Pulse 80 Resp 16 Wt 114.8 kg (253 lb) BMI 47.80 kg/m General Appearance: well appearing, in no acute distress, alert Skin: Skin color, texture, turgor normal for age; Eyes: conjunctiva pink and moist, no icterus, sclera white, non-injected Neck: Thyroid normal size and symmetric without palpable nodules, No adenopathy Lymph nodes: No cervical lymphadenopathy and No supraclavicular lymphadenopathy Lungs: Lungs clear to auscultation. No wheezing, rhonchi, rales. Heart: RRR without murmur, gallop, or rubs. No ectopy Extremities: No deformities, edema, skin discoloration, clubbing or cyanosis. Good capillary refill. Feet:Shoes and socks removed, normal distal pulses, sensitive to 10 gm monofilament, vibratory perception normal, and long thick nails and scaling of skin to bilateral feet. Health maintenance reviewed with patient: SHINGRIX VACCINE(1 of 2) Never done DIABETIC FOOT EXAM due on 02/01/2015 MAMMOGRAM due on 02/11/2019 BONE DENSITY due on 2020 ADVANCE DIRECTIVE DISCUSSION Never done DEPRESSION ASSESSMENT Never done COVID-19 VACCINE(3 - Booster for Moderna series) due on 10/23/2021 URINE ALBUMIN:CREATININE RATIO due on 11/12/2021 HBA1C due on 04/23/2022 INFLUENZA(1) due on 05/08/2022 LDL CHOLESTEROL due on 05/29/2022 PNEUMOCOCCAL: 65+(2 - PCV) due on 07/26/2022 DTAP,TDAP,TD(2 - Td or Tdap) due on 09/06/2022 ANNUAL PCP TEAM CHRONIC DISEASE VISIT due on 10/15/2022 BP CONTROLLED (<130/80) due on 10/15/2022 COLORECTAL CANCER SCREENING due on 11/01/2022 DILATED RETINAL EXAM due on 01/03/2023 HEPATITIS C SCREENING Completed DATA REVIEWED: No new labs ASSESSMENT/PLAN: 1. Type 2 diabetes mellitus with hyperglycemia, without long-term current use of insulin (HCC) - ICD9: 250.00, 790.29, ICD10: E11.65 (primary diagnosis) Uncontrolled - per patient she is getting 150s but this is what she reported when A1c was 11. Need updated A1c to verify - Continue current medications - Blood glucose monitoring on a once a day schedule - BP goal of <130/80 - LDL goal of <100 - COMP METABOLIC PANEL - CBC + DIFF - HGB A1C - ALBUMIN/CREAT RATIO RND UR - CONSULT TO NUTRITION THERAPY - per patient she is scheduling with podiatry for foot care 2. HTN (hypertension), benign - ICD9: 401.1, ICD10: I10 - good control - Continue current medication(s) - Encouraged dietary sodium restriction/DASH diet - Recommended regular aerobic exercise. - Recommend home blood pressure monitoring, to bring results in on next visit - Goal of BP <130/80 - COMP METABOLIC PANEL - CBC + DIFF - CONSULT TO NUTRITION THERAPY 3. Mixed hyperlipidemia - ICD9: 272.2, ICD10: E78.2 - to be determined upon return of lab results - Continue current medication. - Encouraged following a low fat, low cholesterol diet. - Discussed the benefits of regular aerobic exercise and weight loss. - LIPID PANEL BASIC - COMP METABOLIC PANEL - CONSULT TO NUTRITION THERAPY 4. Need for influenza vaccination - ICD9: V04.81, ICD10: Z23 - INFLUENZA SEASONAL QUADRIVALENT HIGH DOSE AGE 65+ 5. Screening for osteoporosis - ICD9: V82.81, ICD10: Z13.820 - DXA-AXIAL SKELETON 6. Asymptomatic menopause - ICD9: V49.81, ICD10: Z78.0 - DXA-AXIAL SKELETON Prescription instructions reviewed with patient as applicable. Potential red flag symptoms discussed with the patient. Reviewed appropriate action plan to take if red flag symptoms occur. Patient agreeable to treatment plan. Janine Dumont APRN.CNP documented in this encounter [facility] 05-16-2022 Miscellaneous Notes [facility] Ambulatory Pharmacy Anticoagulation Clinic Anticoagulation Episode Summary Anticoagulation Care Providers Provider Role Specialty Phone number Estephania Rodriguez MD Referring Internal Medicine [phone] Wendy Forte is a 67 year old year old female patient being evaluated today for a Telemanagement visit. Patient is currently on the following anticoagulant(s) Warfarin. Labs PT INR (no units) Date Value 12/13/2021 2.2 11/01/2021 2.2 10/15/2021 1.9 INR (no units) Date Value 05/16/2022 2.1 04/25/2022 1.8 03/29/2022 2.0 Hemoglobin (g/dL) Date Value 07/31/2021 10.4 Hematocrit (%) Date Value 07/31/2021 32.1 Platelet Count (k/uL) Date Value 07/31/2021 405 Creatinine (mg/dL) Date Value 07/31/2021 0.65 11/12/2020 0.71 07/03/2020 0.65 Bilirubin, Total (mg/dL) Date Value 07/31/2021 0.4 ALT (U/L) Date Value 07/31/2021 16 AST (U/L) Date Value 07/31/2021 17 CrCl cannot be calculated (Patient's most recent lab result is older than the maximum 180 days allowed.). 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: Anticoagulation Episode Summary Current INR goal: 2.0-3.0 Assessment: INR result of 2.1 is therapeutic Plan: Current Warfarin Dosing As of 05/09/2022 Full warfarin instructions: 2.5 mg every day Left voice message Advised patient to continue current weekly dose as noted above Next lab INR check scheduled on 06/06/2022 Rene Schumacher RPh Clinical Pharmacist, Pharmacy Anticoagulation Clinic Pharmacy Antico[facility] Clinic Pager: [phone]. Patient due to test INR today. Will continue to monitor for results. Pretty Singh RPh documented in this encounter [facility] 04-29-2022 Miscellaneous Notes Okayed pending are the only rx that are needed. Pt has refills of the other pharmacy can get them ready for her. Next appt with [facility] 06/06/22. Last seen pcp10/15/21. Patient has been identified by name and date of : Yes Requested Prescriptions Pending Prescriptions Disp Refills metFORMIN ER (GLUCOPHAGE XR) 500 mg 24 hr tablet 360 tablet 3 Sig: Take 2 tablets by mouth twice daily with meals. potassium chloride ER (K-DUR, KLOR-CON) 20 mEq tablet 360 tablet 3 Sig: Take 2 tablets by mouth twice daily. IFEREX 150 150 mg iron capsule 90 capsule 3 Sig: Take 1 capsule by mouth once daily. metoprolol tartrate, short acting, (LOPRESSOR) 50 mg tablet 180 tablet 3 Sig: Take 1 tablet by mouth twice daily. clopidogrel (PLAVIX) 75 mg tablet 90 tablet 3 Sig: Take 1 tablet by mouth once daily. atorvastatin (LIPITOR) 10 mg tablet 90 tablet 3 Sig: Take 1 tablet by mouth daily at bedtime. rosuvastatin (CRESTOR) 5 mg tablet 90 tablet 3 Sig: Take 1 tablet by mouth daily at bedtime. warfarin (COUMADIN) 2.5 mg tablet 90 tablet 3 Sig: Start with 2.5 mg daily. Will titrate dose as indicated RX INSTRUCTIONS: Patient aware RX will be sent to pharmacy. No need to notify patient. Cleo Lockett documented in this encounter [facility] 04-25-2022 Miscellaneous Notes [facility] Ambulatory Pharmacy Anticoagulation Clinic Anticoagulation Episode Summary Anticoagulation Care Providers Provider Role Specialty Phone number Estephania Rodriguez MD Referring Internal Medicine [phone] Wendy Forte is a 67 year old year old female patient being evaluated today for a Telemanagement visit. Patient is currently on the following anticoagulant(s) Warfarin. Labs PT INR (no units) Date Value 12/13/2021 2.2 11/01/2021 2.2 10/15/2021 1.9 INR (no units) Date Value 04/25/2022 1.8 03/29/2022 2.0 03/07/2022 2.1 Hemoglobin (g/dL) Date Value 07/31/2021 10.4 Hematocrit (%) Date Value 07/31/2021 32.1 Platelet Count (k/uL) Date Value 07/31/2021 405 Creatinine (mg/dL) Date Value 07/31/2021 0.65 11/12/2020 0.71 07/03/2020 0.65 Bilirubin, Total (mg/dL) Date Value 07/31/2021 0.4 ALT (U/L) Date Value 07/31/2021 16 AST (U/L) Date Value 07/31/2021 17 CrCl cannot be calculated (Patient's most recent lab result is older than the maximum 180 days allowed.). 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: Anticoagulation Episode Summary Current INR goal: 2.0-3.0 Assessment: INR result of 1.8 is SUBtherapeutic due to: unknown cause - did not speak to patient Plan: Current Warfarin Dosing As of 04/25/2022 Full warfarin instructions: 2.5 mg every day Left voice message Advised patient to increase dose for 1 day only then resume weekly regimen Next lab INR check scheduled on 05/09/2022 Jigna Arana RPh Clinical Pharmacist, Pharmacy Anticoagulation Clinic Pharmacy Anticoagulation Clinic Pager: [phone]. documented in this encounter [facility] 04-04-2022 Miscellaneous Notes This was picked up by pts daughter. this is ready for cotton picker on the second floor on the left side. Pt notified. rec'd 2 boxes of lantus from [employer]. Lot number is [id number] Exp date 04/06/2024. documented in this encounter [facility] 03-31-2022 Miscellaneous Notes Rec'd,completed and faxed back. With no changes the provider does not need to sign. Noted Germania spoke with [employer] and rep is faxing refill reorder form to Dr. Rodriguez office for patient Lantus. Patient spoke with Germania as she reports that she is in need of refill on her Lantus through [employer]. Patient states that she is on the same Lantus dose as last time she had fill. Germania will call [facility] to request they send refill reorder form to Dr. Rodriguez office. Once received please review and fax [facility] to [facility] for Lantus refill. documented in this encounter [facility] 03-31-2022 Miscellaneous Notes [facility] Ambulatory Pharmacy Anticoagulation Clinic Anticoagulation Episode Summary Anticoagulation Care Providers Provider Role Specialty Phone number Estephania Rodriguez MD Referring Internal Medicine [phone] Wendy Forte is a 67 year old year old female patient being evaluated today for a Telemanagement visit. Patient is currently on the following anticoagulant(s) Warfarin. Labs PT INR (no units) Date Value 12/13/2021 2.2 11/01/2021 2.2 10/15/2021 1.9 INR (no units) Date Value 03/29/2022 2.0 03/07/2022 2.1 02/15/2022 2.3 CrCl cannot be calculated (Patient's most recent lab result is older than the maximum 180 days allowed.). 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: half-way (current) use of anticoagulants Anticoagulation Episode Summary Current INR goal: 2.0-3.0 Assessment: INR result of 2.0 is therapeutic Plan: Current Warfarin Dosing As of 03/31/2022 Full warfarin instructions: 2.5 mg every day Left voice message Advised patient to continue current weekly dose as noted above Next INR check due on 05/05/2022 Patient instructed to call [facility] at [phone] with any questions or concerns. Jw Roberts RPh Clinical Pharmacist, Pharmacy Anticoagulation Clinic Pharmacy Anticoagulation Clinic Pager: [phone] documented in this encounter [facility] 03-08-2022 Miscellaneous Notes Patient notified of below dosage recommendation, verbalized understanding. Anticoag Tracker updated. Reyna Gordon LPN Continue Coumadin dose. INR on 03/24/22 as scheduled. Last INR: PT INR 2.1 03/07/2022 Current dose of coumadin is: 2.5 mg daily Last date of dose change: not known . Previous INR (date and result): 2.3 on 02/15/2022 Additional Clinical Information or narrative: No changes, diet, no antibiotics, no bruising or bleeding issues. She was not aware that her next INR was due on 03/24/2022 Patient INR is done per [facility], phoned and closed on weekends and holidays. Last note said INR was due 03/24/2022, not sure why was done yesterday. Phoned patient and left message to return call, ask for a nurse. documented in this encounter [facility] 02-14-2022 Miscellaneous Notes Patient due to test INR today. Will continue to monitor for results. Jigna Arana RPh documented in this encounter [facility] 01-21-2022 History of Present illness Narrative Primary Care Pharmacy Visit REASON FOR CONSULT: DM GOALS: A1c < 7% CONSULTING PROVIDER: Vinita Felton ([facility]) Date of Consult: 07/12/2020 Wendy Forte is a 66 year old female presenting for follow up visit by telephone. Patient consents to pharmacy collaborative practice agreement. Last seen by PCP, Dr. Estephania Rodriguez MD on 10/15/21. Patient was recently prescribed antibiotic course of keflex for ongoing UTI symptoms. At pharmacy visit on 06/20/21, no medication changes made. At PharmD visit on 11/26, discussed pursuing Ozempic through pt assistance in hopes to decrease insulin requirements. At last PharmD visit on 12/31/21, insulin glargine dose was increased. INTERIM HISTORY: Patient states she feels her diet needs improvement Open to meeting with rehabilitation engineer No readings to review today, states they are unchanged in the mid 100s Plans to go to lab today for bloodwork Current DM Medications: Metformin ER 500 mg tabs - 1000 mg BID Insulin glargine (Lantus) 33 units QHS Past DM medications: Glimepiride Avandia Preventative Medications: On VICTOR MANUEL/ARB: Yes On Statin: Yes GLYCEMIC CONTROL: SMBG s: No readings to review today, states they are unchanged in the mid 100s Hypoglycemia: none Preventative Medications: On VICTOR MANUEL/ARB: Yes On Statin: Yes GLYCEMIC CONTROL: Glucometer present at visit: N/A, phone visit SMBG s: No BG log to review, Reports morning readings range in the 160s in the morning and the 140s in the evening Hypoglycemia: denies ROS: Patient denies CP, SOB, CRUZ, blurred vision, dizziness or lightheadedness Patient denies nausea, vomiting, diarrhea, abdominal pain Patient denies symptoms of hypoglycemia (sweating, anxiety, palpitations, hunger, and tremor) Patient denies symptoms of hyperglycemia (polyuria, polydipsia, polyphagia) Patient denies potential medication adverse effects MEDICATIONS: Pill bottles are not present Adherence: denies missed doses Pharmacy: [facility] in [place] Rx coverage: Medicare A and B only Affordability: no issues; gets Lantus through ACTIVE PROBLEM LIST Htn (Hypertension), Benign Hyperlipidemia Type II Diabetes Mellitus, Uncontrolled Urinary Frequency Panic Disorder Without Agoraphobia Gerd (Gastroesophageal Reflux Disease) Heart Palpitations Obesity, Morbid, Bmi 40.0-49.9 ([facility]) Type 2 Diabetes Mellitus With Hyperglycemia, Without Long-Term Current Use of Insulin ([facility]) Paf (Paroxysmal Atrial Fibrillation) ([facility]) PAST MEDICAL HISTORY Diagnosis Date Adjustment disorder with depressed mood Hyperlipidemia 06/13/2009 Obesity, morbid, BMI 40.0-49.9 ([facility]) Other and unspecified hyperlipidemia Type II or unspecified type diabetes mellitus without mention of complication, not stated as uncontrolled Unspecified essential hypertension Urinary frequency ALLERGIES Allergen Reactions Sulfa (Sulfonamide * Rash BLISTERS Current Outpatient Medications Medication Sig insulin glargine (LANTUS SOLOSTAR U-100 INSULIN) 100 unit/mL (3 mL) Inject 33 Units subcutaneously daily at bedtime. Patient Assistance Med rosuvastatin (CRESTOR) 5 mg tablet Take 1 tablet by mouth daily at bedtime. warfarin (COUMADIN) 2.5 mg tablet Start with 2.5 mg daily. Will titrate dose as indicated potassium chloride ER (K-DUR, KLOR-CON) 20 mEq tablet Take 2 tablets by mouth twice daily. metoprolol tartrate, short acting, (LOPRESSOR) 50 mg tablet Take 1 tablet by mouth twice daily. atorvastatin (LIPITOR) 10 mg tablet Take 1 tablet by mouth daily at bedtime. IFEREX 150 150 mg iron capsule Take 1 capsule by mouth once daily. clopidogrel (PLAVIX) 75 mg tablet Take 1 tablet by mouth once daily. FLUoxetine HCl (PROZAC) 40 mg capsule Take 1 capsule by mouth once daily. metFORMIN ER (GLUCOPHAGE XR) 500 mg 24 hr tablet Take 2 tablets by mouth twice daily with meals. blood sugar diagnostic (FREESTYLE TEST) test strip Check 4 time daily as directed. DX E11.65, Insulin: Yes Lancets lancets Test blood sugar(s) 4 times daily as directed. Dx: diabetes E11.65. Insulin: Yes insulin needles, DISPOSABLE, (PEN NEEDLE) 31 gauge x 5/16 ndle Use one needle per dose. One per day. COMPOUNDED PRESCRIPTION Diabetic shoes with insoles. DX E11.65, E11,49 COMPOUNDED PRESCRIPTION Hinged knee brace for left knee--Don Janine OA Reaction Web Knee brace. Dx Knee pain and decreased mobility secondary to degenerative arthritis 715.96 COMPOUNDED PRESCRIPTION ascensia lancets No current facility-administered medications for this visit. EXAM: Last 3 Encounter BP Readings: Date: BP: 10/15/2021 114/62 08/28/2021 138/84 07/31/2021 128/62 Wt: 107 kg (236 lb) BMI: 44.59 kg/(m^2) LABS: Lab Results Component Value Date HBA1C 8.2 09/20/2021 HBA1C 11.0 05/29/2021 HBA1C 10.3 11/12/2020 CMP: Glucose 106 07/31/2021 BUN 13 07/31/2021 Creatinine 0.65 07/31/2021 Sodium 139 07/31/2021 Potassium 4.4 07/31/2021 Chloride 104 07/31/2021 CO2 23 07/31/2021 Protein, Total 7.6 07/31/2021 Albumin 3.9 07/31/2021 Calcium 9.6 07/31/2021 Alkaline Phosphatase 112 07/31/2021 Bilirubin, Total 0.4 07/31/2021 AST 17 07/31/2021 ALT 16 07/31/2021 EGFR: >60 mL/min/1.73m2 No results found for: B12 Lab Results Component Value Date CHOL 148 05/29/2021 LDL 69 05/29/2021 HDL 34 05/29/2021 TG 225 05/29/2021 The 10-year ASCVD risk score (Isma HAMLIN Jr., et al., 2013) is: 12.8% Values used to calculate the score: Age: 66 years Sex: Female Is Non- : No Diabetic: Yes Tobacco smoker: No Systolic Blood Pressure: 114 mmHg Is BP treated: Yes HDL Cholesterol: 34 mg/dL Total Cholesterol: 148 mg/dL Albumin/Creat Ratio (mg/g) Date Value 11/12/2020 35 (H) PHARMACOTHERAPY ASSESSMENT/PLAN: 1. Type 2 diabetes mellitus with other specified complication, with long-term current use of insulin (HCC) - ICD9: 250.80, V58.67, ICD10: E11.69, Z79.4 A1c goal < 7%; not at goal (last A1c 8.2%); SMBG elevated on current regimen. Pt would benefit from GLP1 RA for improved BG control and weight loss potential, has declined this recommendation in the past. Today, reviewed carb counting and referred to nutrition therapy. Will await A1c results to determine med changes. Renal function and LFTs appropriate for continued use CONTINUE Metformin ER 500 mg tabs - 1000 mg BID, Insulin glargine (Lantus) 33 units QHS - CONSULT TO NUTRITION THERAPY Follow up: Patient is scheduled to see PCP on 02/14/22. Patient to follow up with PharmD, TBD after labs result Patient verbalized understanding of instructions. Ezio High PharmD, BCACP Primary Care Clinical Pharmacist [facility] The majority of the pharmacy visit (> 50%) was spent counseling and/or coordinating care for the patient. [Telephonic] time was 28 minutes. documented in this encounter [facility] 01-02-2022 Miscellaneous Notes Vinita QUINTEROS signed form. This has been faxed to number on the form. Recd form. Since there has been a change in dose form will need signed. Germania called [employer] and noted that refill form has not been received by Dr. Rodriguez office. Germania requested that refill form be faxed to Dr. Rodriguez for patient's Lantus. [employer] rep notes that company is faxing form again to provider office. No form rec'd at this time. Sharonda, Have you received refill form from [employer] for patient Lantus? If not, I will have to call company again and request that they send form. Radha No, not yet. has form been recieved? can sign as needed Lantus dose was increased today to 33 units once daily. Ok to adjust order form to reflect this change. Thanks for your help! Ezio High PharmD, BCACP Primary Care Clinical Pharmacist [facility] [employer] is faxing Dr. Rodriguez refill form for patient Lantus Sauloostar. Will include [facility] in conversation as patient is having appt with Pharm this afternoon. Patient states that yes, I need refill on Lantus-[employer]. Sw noted that Sw can call [employer] to request refill form. Patient noted that she has appt with [facility] this afternoon and patient wants to stay on current diabetes medications. Patient noted that [facility] had talked with patient about ozmepic. Patient states that she does not feel like that would be something that she would like to be on at this time. Sw noted that she can call [employer] to request refill reorder form. Patient reports having no changes to her health insurance. Germania noted Dr. Rodriguez office can then hold [employer] refill form to see if [facility] has any recommendations or changes on Lantus dose. Patient notes that she feels like that current Lantus dose she is on works fine for her right now and she is not expecting a dose change on the Lantus. Sw received message from patient stating that she is in need of refill on her insulin. Patient receives Lantus through [employer] [facility]. Sw called and left patient message to call Sw back. Sw would like to see if patient has any changes to her insurance and confirm that she was referring to her Lantus. Patient has also been working with [facility] in regards to other medications with PAP programs. documented in this encounter [facility] 12-27-2021 Miscellaneous Notes [facility] Ambulatory Pharmacy Anticoagulation Clinic Anticoagulation Episode Summary Anticoagulation Care Providers Provider Role Specialty Phone number Estephania Rodriguez MD Referring Internal Medicine [phone] Wendy Forte is a 66 year old year old female patient being evaluated today for a Lab INR. Patient is currently on the following anticoagulant(s) Warfarin. Labs PT INR (no units) Date Value 12/13/2021 2.2 11/01/2021 2.2 10/15/2021 1.9 INR (no units) Date Value 12/27/2021 2.1 11/29/2021 1.9 11/15/2021 3.0 Hemoglobin (g/dL) Date Value 07/31/2021 10.4 Hematocrit (%) Date Value 07/31/2021 32.1 Platelet Count (k/uL) Date Value 07/31/2021 405 Creatinine (mg/dL) Date Value 07/31/2021 0.65 11/12/2020 0.71 07/03/2020 0.65 Bilirubin, Total (mg/dL) Date Value 07/31/2021 0.4 ALT (U/L) Date Value 07/31/2021 16 AST (U/L) Date Value 07/31/2021 17 CrCl cannot be calculated (Unknown ideal weight.). 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: Anticoagulation Episode Summary Current INR goal: 2.0-3.0 Assessment: INR result of 2.1 is therapeutic Plan: Left voice message Advised patient to continue current weekly dose Next lab INR check scheduled on 01/17/2022 Rene Schumacher RPh Clinical Pharmacist, Pharmacy Anticoagulation Clinic Pharmacy Anticoagulation Clinic Pager: [phone] . documented in this encounter [facility] 12-13-2021 Miscellaneous Notes [facility] Ambulatory Pharmacy Anticoagulation Clinic Anticoagulation Episode Summary Anticoagulation Care Providers Provider Role Specialty Phone number Estephania Rodriguez MD Referring Internal Medicine [phone] Wendy Forte is a 66 year old year old female patient being evaluated today for a Telemanagement visit. Patient is currently on the following anticoagulant(s) Warfarin. Labs PT INR (no units) Date Value 12/13/2021 2.2 11/01/2021 2.2 10/15/2021 1.9 INR (no units) Date Value 11/29/2021 1.9 11/15/2021 3.0 Hemoglobin (g/dL) Date Value 07/31/2021 10.4 Hematocrit (%) Date Value 07/31/2021 32.1 Platelet Count (k/uL) Date Value 07/31/2021 405 Creatinine (mg/dL) Date Value 07/31/2021 0.65 11/12/2020 0.71 07/03/2020 0.65 Bilirubin, Total (mg/dL) Date Value 07/31/2021 0.4 ALT (U/L) Date Value 07/31/2021 16 AST (U/L) Date Value 07/31/2021 17 CrCl cannot be calculated (Unknown ideal weight.). 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: Anticoagulation Episode Summary Current INR goal: 2.0-3.0 Assessment: INR result of 2.2 is therapeutic Plan: Left voice message Advised patient to continue current weekly dose Next lab INR check scheduled on 12/27/2021 Jigna Arana RPh Clinical Pharmacist, Pharmacy Anticoagulation Clinic Pharmacy Anticoagulation Clinic Pager: [phone] .' Images from the original note were not included. Per staff message today (12/13/21): Sharonda Alcantara LPN P Anticoagulation Clinic Inr Home; P Anticoagulation Clinic INR completed via lab draw. Results from [facility]. 12/13/21 INR is 2.2 Protime 24.0 PT INR (no units) Date Value 12/13/2021 2.2 11/01/2021 2.2 10/15/2021 1.9 INR (no units) Date Value 11/29/2021 1.9 11/15/2021 3.0 Erna Elizabeth RN Pharmacy Anticoagulation Clinic documented in this encounter [facility] 12-13-2021 Miscellaneous Notes Pharmacy managing pt's INR and coumadin dose. This information has been routed to them. INR completed at [facility] today was 2.2 documented in this encounter [facility] 12-02-2021 Miscellaneous Notes Patient notified of coumadin instructions and verbalized understanding. Continue Coumadin dose unchanged and check INR in 2 weeks Last INR: PT INR 1.9 11/29/2021 Current dose of coumadin is: 2.5 mg daily. . Last date of dose change: 11/18/21. Previous INR (date and result): 3.0 Additional Clinical Information or narrative: no. Neg findings documented in this encounter [facility] 11-26-2021 History of Present illness Narrative Primary Care Pharmacy Visit REASON FOR CONSULT: DM GOALS: A1c < 7% CONSULTING PROVIDER: Vinita Felton ([facility]) Date of Consult: 07/12/2020 Wendy Forte is a 66 year old female presenting for follow up visit by telephone. Patient consents to pharmacy collaborative practice agreement. Last seen by PCP, Dr. Estephania Rodriguez MD on 10/15/21. Patient was recently prescribed antibiotic course of keflex for ongoing UTI symptoms. At pharmacy visit on 06/20/21, no medication changes made. At last PharmD visit on 10/28, discussed pursuing Ozempic through pt assistance in hopes to decrease insulin requirements. INTERIM HISTORY: Pt reports feeling better She is unsure if receive the paper copy of Novocare in the mail, asking for new copy to be sent States since illness resolved, readings are better. No BG log to review but states readings in the 140s-150s No missed doses, denies low BG Current DM Medications: Metformin ER 500 mg tabs - 1000 mg BID Insulin glargine (Lantus) 31 units QHS Past DM medications: Glimepiride [facility]ia Preventative Medications: On VICTOR MANUEL/ARB: Yes On Statin: Yes GLYCEMIC CONTROL: Glucometer present at visit: No SMBG s:No BG log to review, states BG readings are in the 140s - 150s Hypoglycemia: denies ROS: Patient denies CP, SOB, CRUZ, blurred vision, dizziness or lightheadedness Patient denies nausea, vomiting, diarrhea, abdominal pain Patient denies symptoms of hypoglycemia (sweating, anxiety, palpitations, hunger, and tremor) Patient denies symptoms of hyperglycemia (polyuria, polydipsia, polyphagia) Patient denies potential medication adverse effects MEDICATIONS: Pill bottles are not present Adherence: denies missed doses Pharmacy: [facility] in [place] Rx coverage: Medicare A and B only Affordability: no issues; gets Lantus through ACTIVE PROBLEM LIST Htn (Hypertension), Benign Hyperlipidemia Type II Diabetes Mellitus, Uncontrolled Urinary Frequency Panic Disorder Without Agoraphobia Gerd (Gastroesophageal Reflux Disease) Heart Palpitations Obesity, Morbid, Bmi 40.0-49.9 ([facility]ly [facility]) Diabetes Mellitus Type 2, Uncontrolled, Without Complications Paf (Paroxysmal Atrial Fibrillation) ([facility]) PAST MEDICAL HISTORY Diagnosis Date Adjustment disorder with depressed mood Hyperlipidemia 06/13/2009 Obesity, morbid, BMI 40.0-49.9 ([facility]) Other and unspecified hyperlipidemia Type II or unspecified type diabetes mellitus without mention of complication, not stated as uncontrolled Unspecified essential hypertension Urinary frequency ALLERGIES Allergen Reactions Sulfa (Sulfonamide * Rash BLISTERS Current Outpatient Medications Medication Sig rosuvastatin (CRESTOR) 5 mg tablet Take 1 tablet by mouth daily at bedtime. warfarin (COUMADIN) 2.5 mg tablet Start with 2.5 mg daily. Will titrate dose as indicated potassium chloride ER (K-DUR, KLOR-CON) 20 mEq tablet Take 2 tablets by mouth twice daily. metoprolol tartrate, short acting, (LOPRESSOR) 50 mg tablet Take 1 tablet by mouth twice daily. atorvastatin (LIPITOR) 10 mg tablet Take 1 tablet by mouth daily at bedtime. IFEREX 150 150 mg iron capsule Take 1 capsule by mouth once daily. clopidogrel (PLAVIX) 75 mg tablet Take 1 tablet by mouth once daily. FLUoxetine HCl (PROZAC) 40 mg capsule Take 1 capsule by mouth once daily. metFORMIN ER (GLUCOPHAGE XR) 500 mg 24 hr tablet Take 2 tablets by mouth twice daily with meals. insulin glargine (LANTUS SOLOSTAR U-100 INSULIN) 100 unit/mL (3 mL) Inject 31 Units subcutaneously daily at bedtime. blood sugar diagnostic (FREESTYLE TEST) test strip Check 4 time daily as directed. DX E11.65, Insulin: Yes Lancets lancets Test blood sugar(s) 4 times daily as directed. Dx: diabetes E11.65. Insulin: Yes insulin needles, DISPOSABLE, (PEN NEEDLE) 31 gauge x 5/16 ndle Use one needle per dose. One per day. COMPOUNDED PRESCRIPTION Diabetic shoes with insoles. DX E11.65, E11,49 COMPOUNDED PRESCRIPTION Hinged knee brace for left knee--Nestor Mehta OA Reaction Web Knee brace. Dx Knee pain and decreased mobility secondary to degenerative arthritis 715.96 COMPOUNDED PRESCRIPTION ascensia lancets No current facility-administered medications for this visit. EXAM: Last 3 Encounter BP Readings: Date: BP: 10/15/2021 114/62 08/28/2021 138/84 07/31/2021 128/62 Wt: 107 kg (236 lb) BMI: 44.59 kg/(m^2) LABS: Lab Results Component Value Date HBA1C 8.2 09/20/2021 HBA1C 11.0 05/29/2021 HBA1C 10.3 11/12/2020 CMP: Glucose 106 07/31/2021 BUN 13 07/31/2021 Creatinine 0.65 07/31/2021 Sodium 139 07/31/2021 Potassium 4.4 07/31/2021 Chloride 104 07/31/2021 CO2 23 07/31/2021 Protein, Total 7.6 07/31/2021 Albumin 3.9 07/31/2021 Calcium 9.6 07/31/2021 Alkaline Phosphatase 112 07/31/2021 Bilirubin, Total 0.4 07/31/2021 AST 17 07/31/2021 ALT 16 07/31/2021 EGFR: >60 mL/min/1.73m2 No results found for: B12 Lab Results Component Value Date CHOL 148 05/29/2021 LDL 69 05/29/2021 HDL 34 05/29/2021 TG 225 05/29/2021 The 10-year ASCVD risk score ([place] BOUBACAR Jr., et al., 2013) is: 12.8% Values used to calculate the score: Age: 66 years Sex: Female Is Non- : No Diabetic: Yes Tobacco smoker: No Systolic Blood Pressure: 114 mmHg Is BP treated: Yes HDL Cholesterol: 34 mg/dL Total Cholesterol: 148 mg/dL Albumin/Creat Ratio (mg/g) Date Value 11/12/2020 35 (H) PHARMACOTHERAPY ASSESSMENT/PLAN: 1. Type 2 diabetes mellitus with other specified complication, with long-term current use of insulin (HCC) - ICD9: 250.80, V58.67, ICD10: E11.69, Z79.4 A1c goal < 7%; not at goal (last A1c 8.2%); Today, will continue current regimen. Pt would benefit from GLP1 RA for improved BG control and weight loss potential. Will plan to pursue Ozempic with Novocare renewal. Pursue Ozempic with Novocare renewal Mailing form to patient, asking her to complete patient section and mail back to office with copy of proof of income Continue Metformin ER 500mg tabs - 1000 mg BID, Insulin glargine (Lantus) 31 units QHS ACEi/ARB for renal protection: yes, Scr and K+ WNL Statin: yes, LFTs WNL HbA1c: due 12/19/21 Follow up: Patient is scheduled to see PCP on 02/14/22. Patient to follow up with PharmD on 12/31/21. Patient verbalized understanding of instructions. Ezio High PharmD, BCACP Primary Care Clinical Pharmacist [facility] The majority of the pharmacy visit (> 50%) was spent counseling and/or coordinating care for the patient. [Telephonic] time was 11 minutes. documented in this encounter [facility] 10-15-2021 History of Present illness Narrative This note was created using Hippflowter. Subjective Wendy Forte is a 66 year old female. Patient presents with: Follow Up SUBJECTIVE: Wendy Forte is a 66 year old year old lady here today for follow up appointment for review of medical conditions. Started Thursday with eye lid pain and swelling. Right eye with redness and pain and itching and swelling. Just like with prior cellulitis with other eye (left responded to Keflex before). Uses hot and cold alternatinp . Once in a while mucousy. Cheek also red and hot now. Feels like still going a lot sometimes. Not having pain or burning. Did give urine sample yesterday. Hair thinning lately. Has stopped drinking much caffeine. [facility] appt. November Better than a month ago but still weaker than baseline. Walks with walker every day. Doing PT exercises that was given, Happy HgA1C is down. Able to get down from 11 to 8 range. PAST MEDICAL HISTORY Diagnosis Date Adjustment disorder with depressed mood Hyperlipidemia 06/13/2009 Obesity, morbid, BMI 40.0-49.9 (HCC) Other and unspecified hyperlipidemia Type II or unspecified type diabetes mellitus without mention of complication, not stated as uncontrolled Unspecified essential hypertension Urinary frequency Current Outpatient Medications Medication Sig warfarin (COUMADIN) 2.5 mg tablet Start with 2.5 mg daily. Will titrate dose as indicated potassium chloride ER (K-DUR, KLOR-CON) 20 mEq tablet Take 2 tablets by mouth twice daily. metoprolol tartrate, short acting, (LOPRESSOR) 50 mg tablet Take 1 tablet by mouth twice daily. atorvastatin (LIPITOR) 10 mg tablet Take 1 tablet by mouth daily at bedtime. IFEREX 150 150 mg iron capsule Take 1 capsule by mouth once daily. clopidogrel (PLAVIX) 75 mg tablet Take 1 tablet by mouth once daily. FLUoxetine HCl (PROZAC) 40 mg capsule Take 1 capsule by mouth once daily. metFORMIN ER (GLUCOPHAGE XR) 500 mg 24 hr tablet Take 2 tablets by mouth twice daily with meals. rosuvastatin (CRESTOR) 5 mg tablet Take 1 tablet by mouth daily at bedtime. insulin glargine (LANTUS SOLOSTAR U-100 INSULIN) 100 unit/mL (3 mL) Inject 31 Units subcutaneously daily at bedtime. blood sugar diagnostic (FREESTYLE TEST) test strip Check 4 time daily as directed. DX E11.65, Insulin: Yes Lancets lancets Test blood sugar(s) 4 times daily as directed. Dx: diabetes E11.65. Insulin: Yes insulin needles, DISPOSABLE, (PEN NEEDLE) 31 gauge x 5/16 ndle Use one needle per dose. One per day. COMPOUNDED PRESCRIPTION Diabetic shoes with insoles. DX E11.65, E11,49 COMPOUNDED PRESCRIPTION Hinged knee brace for left knee--Don Janine OA Reaction Web Knee brace. Dx Knee pain and decreased mobility secondary to degenerative arthritis 715.96 COMPOUNDED PRESCRIPTION ascensia lancets No current facility-administered medications for this visit. Review of Systems Objective BP 114/62 Pulse 78 Wt 107 kg (236 lb) BMI 44.59 kg/m Physical Exam Constitutional: Appearance: Normal appearance. She is obese. HENT: Head: Normocephalic. Eyes: Conjunctiva/sclera: Conjunctivae normal. Cardiovascular: Rate and Rhythm: Normal rate and regular rhythm. Heart sounds: Normal heart sounds. Pulmonary: Effort: Pulmonary effort is normal. Breath sounds: Normal breath sounds. Skin: General: Skin is warm and dry. Neurological: General: No focal deficit present. Mental Status: She is alert and oriented to person, place, and time. Psychiatric: Mood and Affect: Mood normal. Behavior: Behavior normal. Thought Content: Thought content normal. Judgment: Judgment normal. Hemoglobin A1C (%) Date Value 09/20/2021 8.2 05/29/2021 11.0 11/12/2020 10.3 07/03/2020 11.8 10/13/2018 11.2 Hemoglobin A1C (POCT) (%) Date Value 01/08/2019 10.6 Assessment and Plan ASSESSMENT/PLAN: 1. Cellulitis of right eyelid - ICD9: 373.13, ICD10: H00.033 (primary diagnosis) See Ophthalmology of not improving with treatment. - CEPHALEXIN 500 MG CAPSULE 2. Obesity, morbid, BMI 40.0-49.9 (HCC) - ICD9: 278.01, ICD10: E66.01 Weight decreasing - Behavioral intervention 3. Type 2 diabetes mellitus with hyperglycemia, with long-term current use of insulin (HCC) - ICD9: 250.00, 790.29, V58.67, ICD10: E11.65, Z79.4 improved control - Continue current medications - Encouraged regular aerobic exercise and weight loss 4. Colon cancer screening - ICD9: V76.51, ICD10: Z12.11 - FECAL OCCULT BLOOD TEST 5. Mixed hyperlipidemia--Doing fine on Crestor. Continue present management. 6. PAF 7. Anticoagulated on Coumadin. Stable on current meds. Continue present management. 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 Essential hypertension chron ic Hyperlipidemia chronic Presence of stent in coronar y artery December, [facility] Work Phone: Evaluation note* Diagnosis Type 2 diabetes mellitus with other specified complication, with long-term current use of insulin (HCC)- Primary [facility] Diagnosis Onset Date Resolution Status 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 Essential hypertension chron ic Hyperlipidemia chronic Paroxysmal atrial fibrillation with RVR chronic Presence of stent in coronary artery December, [facility] Work Phone: Evaluation note* Diagnosis Cellulitis of right eyelid- Primary Obesity, morbid, BMI 40.0-49.9 (HCC) Morbid obesity Type 2 diabetes mellitus with hyperglycemia, with long-term current use of insulin (HCC) Colon cancer screening Special screening for malignant neoplasms, colon Mixed hyperlipidemia PAF (paroxysmal atrial fibrillation) (HCC) Atrial fibrillation Anticoagulated on Coumadin Encounter for therapeutic drug monitoring [facility] Diagnosis Type 2 diabetes mellitus with other specified complication, with long-term current use of insulin (HCC)- Primary [facility] Diagnosis Encounter for screening mammogram for breast cancer [facility] 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- Primary Long-term (current) use of anticoagulants [facility] Diagnosis Mixed hyperlipidemia PAF (paroxysmal atrial fibrillation) (HCC) Atrial fibrillation Anticoagulated on Coumadin Encounter for therapeutic drug monitoring Panic disorder without agoraphobia [facility] Diagnosis Type 2 diabetes mellitus with hyperglycemia, without long-term current use of insulin (HCC)- Primary HTN (hypertension), benign Essential hypertension, benign Mixed hyperlipidemia Need for influenza vaccination Need for prophylactic vaccination and inoculation against influenza Screening for osteoporosis Special screening for osteoporosis Asymptomatic menopause [facility] Diagnosis Screening for osteoporosis Special screening for osteoporosis Asymptomatic menopause [facility] Diagnosis Hyperkalemia- Primary Hyperpotassemia [facility] Diagnosis Type 2 diabetes mellitus with other specified complication, with long-term current use of insulin (HCC)- Primary [facility] Diagnosis Type 2 diabetes mellitus with other specified complication, with long-term current use of insulin (HCC)- Primary documented in this encounter [facility] note* 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 Long-term (current) use of anticoagulants PAF (paroxysmal atrial fibrillation) ([facility]) Atrial fibrillation documented in this encounter [facility] note* Diagnosis Type 2 diabetes mellitus with hyperglycemia, without long-term current use of insulin ([facility])- Primary Mixed hyperlipidemia HTN (hypertension), benign Essential hypertension, benign PAF (paroxysmal atrial fibrillation) ([facility]) Atrial fibrillation Bilateral leg edema Edema Class 3 severe obesity due to excess calories with serious comorbidity and body mass index (BMI) of 45.0 to 49.9 in adult ([facility]) documented in this encounter [facility] note* Diagnosis Type 2 diabetes mellitus with other specified complication, with long-term current use of insulin ([facility]) documented in this encounter [facility] note* Diagnosis UTI symptoms- Primary Other symptoms involving urinary system Panic disorder without agoraphobia documented in this encounter [facility] note* Diagnosis half-way current use of anticoagulant Long-term (current) use of anticoagulants PAF (paroxysmal atrial fibrillation) ([facility]) Atrial fibrillation documented in this encounter [facility] note* Diagnosis half-way current use of anticoagulant Long-term (current) use of anticoagulants PAF (paroxysmal atrial fibrillation) ([facility]) Atrial fibrillation documented in this encounter [facility] note* Diagnosis UTI symptoms- Primary Other symptoms involving urinary system documented in this encounter [facility] note* Diagnosis Recurrent UTI- Primary Urinary tract infection, site not specified documented in this encounter [facility] note* Diagnosis Recurrent UTI- Primary Urinary tract infection, site not specified documented in this encounter [facility] note* Diagnosis Recurrent UTI- Primary Urinary tract infection, site not specified documented in this encounter [facility] noteNo assessment information availableWKettering Health Work Phone: Evaluation note* Diagnosis PAF (paroxysmal atrial fibrillation) ([facility])- Primary Atrial fibrillation half-way current use of anticoagulant Long-term (current) use of anticoagulants documented in this encounter [facility] note* Diagnosis PAF (paroxysmal atrial fibrillation) ([facility]) Atrial fibrillation Anticoagulated on Coumadin Encounter for therapeutic drug monitoring documented in this encounter [facility] note* Diagnosis Recurrent UTI- Primary Urinary tract infection, site not specified Mixed stress and urge incontinence Bladder wall thickening Other specified disorders of bladder OAB (overactive bladder) Hypertonicity of bladder [facility] Diagnosis Type 2 diabetes mellitus with hyperglycemia, without long-term current use of insulin ([facility])- Primary Mixed hyperlipidemia HTN (hypertension), benign Essential hypertension, benign Obesity, morbid, BMI 40.0-49.9 ([facility]) Morbid obesity Encounter for long-term current use of medication Encounter for immunization Need for other specified prophylactic vaccination against single bacterial disease Anticoagulated on Coumadin Encounter for therapeutic drug monitoring Recurrent major depressive disorder, in full remission ([facility]) [facility] Diagnosis PAF (paroxysmal atrial fibrillation) ([facility])- Primary Atrial fibrillation half-way current use of anticoagulant Long-term (current) use of anticoagulants [facility] Diagnosis PAF (paroxysmal atrial fibrillation) (HCC)- Primary Atrial fibrillation half-way current use of anticoagulant Long-term (current) use of anticoagulants [facility] Diagnosis Encounter for screening mammogram for breast cancer [facility] Diagnosis PAF (paroxysmal atrial fibrillation) ([facility])- Primary 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 Long-term (current) use of anticoagulants [facility] Diagnosis Type 2 diabetes mellitus with hyperglycemia, without long-term current use of insulin ([facility])- Primary [facility] Diagnosis Type 2 diabetes mellitus with hyperglycemia, without long-term current use of insulin ([facility])- Primary Medication management Encounter for long-term (current) use of other medications [facility] Diagnosis Type 2 diabetes mellitus with hyperglycemia, without long-term current use of insulin ([facility])- Primary Type 2 diabetes mellitus with other specified complication, with long-term current use of insulin ([facility]) Medication management Encounter for long-term (current) use of other medications [facility] Diagnosis PAF (paroxysmal atrial fibrillation) ([facility])- Primary 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 Long-term (current) use of anticoagulants [facility] Diagnosis Type 2 diabetes mellitus with hyperglycemia, without long-term current use of insulin ([facility])- Primary Type 2 diabetes mellitus with other specified complication, with long-term current use of insulin ([facility]) [facility] Diagnosis half-way (current) use of anticoagulants- Primary Long-term (current) use of anticoagulants [facility]* Diagnosis Type 2 diabetes mellitus with other specified complication, with long-term current use of insulin (HCC)- Primary [facility]* Diagnosis Type 2 diabetes mellitus with other specified complication, with long-term current use of insulin (HCC)- Primary Type 2 diabetes mellitus with hyperglycemia, without long-term current use of insulin (HCC) [facility]* Diagnosis Encounter for screening mammogram for breast cancer [facility] Diagnosis Type 2 diabetes mellitus with other specified complication, with long-term current use of insulin (HCC)- Primary Fall, sequela Bilateral lower extremity edema Edema Stasis dermatitis of both legs Varicose veins of lower extremities with inflammation Panic disorder without agoraphobia PAF (paroxysmal atrial fibrillation) (HCC) Atrial fibrillation Mixed hyperlipidemia Anticoagulated on Coumadin Encounter for therapeutic drug monitoring Encounter for immunization Need for other specified prophylactic vaccination against single bacterial disease [facility] Diagnosis PAF (paroxysmal atrial fibrillation) (HCC)- Primary 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 Long-term (current) use of anticoagulants [facility] Diagnosis Type 2 diabetes mellitus with other specified complication, with long-term current use of insulin (HCC)- Primary [facility] Diagnosis Metabolic dysfunction-associated steatotic liver disease ([facility])- Primary [facility]* Diagnosis Acute cough- Primary Bacterial pneumonia Bacterial pneumonia, unspecified Acute cough [facility] Diagnosis Acute [facility]* Diagnosis Type 2 diabetes mellitus with other specified complication, with long-term current use of insulin (HCC)- Primary [facility]* Diagnosis Screening for colorectal cancer- Primary Special screening for malignant neoplasms, colon [facility]* Diagnosis Type 2 diabetes mellitus with other specified complication, with long-term current use of insulin (HCC)- Primary Hepatic steatosis Other chronic nonalcoholic liver disease Mixed hyperlipidemia Primary hypertension Unspecified essential hypertension Class 3 severe obesity due to excess calories with body mass index (BMI) of 40.0 to 44.9 in adult, unspecified whether serious comorbidity present Encounter for long-term current use of medication Breast cancer screening by mammogram Anticoagulated on Coumadin Encounter for therapeutic drug monitoring [facility]* Diagnosis Type 2 diabetes mellitus with other specified complication, with long-term current use of insulin (HCC)- Primary documented in this encounter [facility] note* Diagnosis Type 2 diabetes mellitus with hyperglycemia, without long-term current use of insulin (HCC) documented in this encounter [facility] note* Diagnosis PAF (paroxysmal atrial fibrillation) ([facility])- Primary 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 Long-term (current) use of anticoagulants documented in this encounter [facility] for referral (narrative)* Diagnostic Procedure Only (Routine) - Pending Review Specialty Diagnoses / Procedures Referred By Elisha el Referred To Contact [facility] Diagnoses Encounter for screening mammogram for breast cancer Procedures ESTEFANÍA SCREENING SCREENING MAMMOGRAPHY BI 2-VIEW BREAST INC Estephania Romero MD [address] [place] [address] [facility] [address] [place] [address] Referral ID Status Reason Start Date Expiration Date Visits Requested Visits Authorized [id number] Pending Review Auto-Generat ed Referral 03/05/2022 04/04/2023 1 1 [facility] for referral (narrative)* Diagnostic Procedure Only (Routine) - Pending Review Specialty Diagnoses / Procedures Referred By Elisha el Referred To Contact [facility] Diagnoses Encounter for screening mammogram for breast cancer Procedures ESTEFANÍA SCREENING SCREENING MAMMOGRAPHY BI 2-VIEW BREAST INC Estephania Romero MD [address] [place] [address] [facility] [address] [place] [address] Referral ID Status Reason Start Date Expiration Date Visits Requested Visits Authorized [id number] Pending Review Auto-Generat ed Referral 08/20/2024 1 [facility] Diagnostic Procedure Only (Routine) - New Request Specialty Diagnoses / Procedures Referred By Elisha el Referred To Contact [facility] Diagnoses Encounter for screening mammogram for breast cancer Procedures ESTEFANÍA SCREENING W PANFILO SCREENING DIGITAL BREAST TOMOSYNTHESIS BI SCREENING MAMMOGRAPHY BI 2-VIEW BREAST INC CAD Estephania Rodriguez MD [address] [place] [address] [facility] [address] [place] [address] Referral ID Status Reason Start Date Expiration Date Visits Requested Visits Authorized [id number] New Request Auto-Generat ed Referral 07/29/2025 1 1 [facility] Advance Directives No Advanced Directives Records FoundDocuments on File Type Date Recorded Patient 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 Expl anation Advance Directive(s) 07/20/2009 9:28 PM Advance Directive Response Recorded Date/ Time Living Will No August 22 021 1:46pm Power of [employer] Hands No August 22, 2021 1:46pm Documents on File Type Date Recorded Patient 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 Rider Expl anation Advance Directive(s) 07/20/2009 9:28 PM Advance Directive Response Recorded Date/ Time Name of Medical Power of [employer] zach wan August 27, 2022 9:32pm Living Will Yes August 27, 022 9:32pm Power of [employer] Hands Yes August 27, 2022 9:32pm Advance Directive Response Recorded Date/ Time Living Will Yes February 19, 2023 6:31am Power of [employer] Hands Yes February 19 6:31am Name of Medical Power of [employer] Hands zach wan February 19, 2023 6:31am Chief Complaint and Reason for Visit Chief Complaint 3 M FU Reason for Visit Atherosclerotic hear t disease of [place] coronary artery without angina pectoris Essential hypertension Hyperlipidemia Paroxysmal atrial fibrillation with RVR Presence of stent in coronary artery Chief Complaint 1 Y FU FALL Reason for Visit Atherosclerotic hear t disease of [place] coronary artery without angina pectoris Essential hypertension Hyperlipidemia Presence of stent in coronary artery Chief Complaint gu Family History No Family History Records Found Relationship Condition Age at Onset Recorded Date/T randy Unknown Family History?No pertinent history Unkno wn December 30, 2018 7:28pm Family History?No pertinent history Unkno wn December 30, 2018 7:28pm Relationship Condition Age at Onset Recorded Date/T randy Unknown Family History?No pertinent history Unkno wn December 30, 2018 6:28pm Family History?No pertinent history Unkno wn December 30, 2018 6:28pm Reason for Referral Specialty Diagnoses / Procedures Referred By Contac t Referred To Contact Nutrition Diagnoses Type 2 diabetes mellitus with other specified complication, with long-term current use of insulin (HCC) Procedures CONSULT TO NUTRITION THERAPY OFFICE/OUTPATIENT [facility] 60-74 MINUTES Estephania Rodriguez MD [address] [place] [address] Referral ID Status Reason Start Date Expiration Date Visits Requested Visits Authorized [id number] Authorized PCP Requested Referral 01/21/2022 01/21/2023 1 1 Specialty Diagnoses / Procedures Referred By Contac t Referred To Contact Nutrition Diagnoses HTN (hypertension), benign Mixed hyperlipidemia Type 2 diabetes mellitus with hyperglycemia, without long-term current use of insulin (HCC) Procedures CONSULT TO NUTRITION THERAPY OFFICE/OUTPATIENT [facility] 60-74 MINUTES Janine Dumont APRN.CENTRAL OFFICE INSTALLER [address] [place] [id number] Referral ID Status Reason Start Date Expiration Date Visits Requested Visits Authorized [id number] Authorized PCP Requested Referral 06/06/2022 06/06/2023 1 1 Specialty Diagnoses / Procedures Referred By Contac t Referred To Contact Urology Diagnoses Recurrent UTI Procedures CONSULT TO UROLOGY OFFICE/OUTPATIENT [facility] 60-74 MINUTES Laila Nazario APRN.CENTRAL OFFICE INSTALLER [address] [place] [address] Referral ID Status Reason Start Date Expiration Date Visits Requested Visits Authorized [id number] Authorized PCP Requested Referral 02/13/2023 02/13/2024 1 1 Summary Purpose Additional Source Comments Source Comments (unrecognize d section and content) In the event this informatio n is protected by the Federal Confidentiality of Alcohol and Drug Abuse Patient Records regulations: The Federal rules restrict any use of the information to criminally investigate or prosecute any alcohol or drug abuse patient.[facility] the event this information is protected by the Federal Confidentiality of Alcohol and Drug Abuse Patient Records regulations: The Federal rules restrict any use of the information to criminally investigate or prosecute any alcohol or drug abuse patient.[facility] the event this information is protected by the Federal Confidentiality of Alcohol and Drug Abuse Patient Records regulations: The Federal rules restrict any use of the information to criminally investigate or prosecute any alcohol or drug abuse patient.[facility] the event this information is protected by the Federal Confidentiality of Alcohol and Drug Abuse Patient Records regulations: The Federal rules restrict any use of the information to criminally investigate or prosecute any alcohol or drug abuse patient.[facility]In the event this information is protected by the Federal Confidentiality of Alcohol and Drug Abuse Patient Records regulations: The Federal rules restrict any use of the information to criminally investigate or prosecute any alcohol or drug abuse patient.[facility]In the event this information is protected by the Federal Confidentiality of Alcohol and Drug Abuse Patient Records regulations: The Federal rules restrict any use of the information to criminally investigate or prosecute any alcohol or drug abuse patient.[facility]In the event this information is protected by the Federal Confidentiality of Alcohol and Drug Abuse Patient Records regulations: The Federal rules restrict any use of the information to criminally investigate or prosecute any alcohol or drug abuse patient.[facility] the event this information is protected by the Federal Confidentiality of Alcohol and Drug Abuse Patient Records regulations: The Federal rules restrict any use of the information to criminally investigate or prosecute any alcohol or drug abuse patient.[facility] HospitalIn the event this information is protected by the Federal Confidentiality of Alcohol and Drug Abuse Patient Records regulations: The Federal rules restrict any use of the information to criminally investigate or prosecute any alcohol or drug abuse patient.[facility] HospitalIn the event this information is protected by the Federal Confidentiality of Alcohol and Drug Abuse Patient Records regulations: The Federal rules restrict any use of the information to criminally investigate or prosecute any alcohol or drug abuse patient.[facility] HospitalIn the event this information is protected by the Federal Confidentiality of Alcohol and Drug Abuse Patient Records regulations: The Federal rules restrict any use of the information to criminally investigate or prosecute any alcohol or drug abuse patient.[facility] HospitalIn the event this information is protected by the Federal Confidentiality of Alcohol and Drug Abuse Patient Records regulations: The Federal rules restrict any use of the information to criminally investigate or prosecute any alcohol or drug abuse patient.[facility] HospitalIn the event this information is protected by the Federal Confidentiality of Alcohol and Drug Abuse Patient Records regulations: The Federal rules restrict any use of the information to criminally investigate or prosecute any alcohol or drug abuse patient.[facility] HospitalIn the event this information is protected by the Federal Confidentiality of Alcohol and Drug Abuse Patient Records regulations: The Federal rules restrict any use of the information to criminally investigate or prosecute any alcohol or drug abuse patient.[facility] HospitalIn the event this information is protected by the Federal Confidentiality of Alcohol and Drug Abuse Patient Records regulations: The Federal rules restrict any use of the information to criminally investigate or prosecute any alcohol or drug abuse patient.[facility] HospitalIn the event this information is protected by the Federal Confidentiality of Alcohol and Drug Abuse Patient Records regulations: The Federal rules restrict any use of the information to criminally investigate or prosecute any alcohol or drug abuse patient.[facility] HospitalIn the event this information is protected by the Federal Confidentiality of Alcohol and Drug Abuse Patient Records regulations: The Federal rules restrict any use of the information to criminally investigate or prosecute any alcohol or drug abuse patient.[facility] HospitalIn the event this information is protected by the Federal Confidentiality of Alcohol and Drug Abuse Patient Records regulations: The Federal rules restrict any use of the information to criminally investigate or prosecute any alcohol or drug abuse patient.[facility] HospitalIn the event this information is protected by the Federal Confidentiality of Alcohol and Drug Abuse Patient Records regulations: The Federal rules restrict any use of the information to criminally investigate or prosecute any alcohol or drug abuse patient.[facility] HospitalIn the event this information is protected by the Federal Confidentiality of Alcohol and Drug Abuse Patient Records regulations: The Federal rules restrict any use of the information to criminally investigate or prosecute any alcohol or drug abuse patient.[facility] HospitalIn the event this information is protected by the Federal Confidentiality of Alcohol and Drug Abuse Patient Records regulations: The Federal rules restrict any use of the information to criminally investigate or prosecute any alcohol or drug abuse patient.[facility] HospitalIn the event this information is protected by the Federal Confidentiality of Alcohol and Drug Abuse Patient Records regulations: The Federal rules restrict any use of the information to criminally investigate or prosecute any alcohol or drug abuse patient.[facility] HospitalIn the event this information is protected by the Federal Confidentiality of Alcohol and Drug Abuse Patient Records regulations: The Federal rules restrict any use of the information to criminally investigate or prosecute any alcohol or drug abuse patient.[facility] HospitalIn the event this information is protected by the Federal Confidentiality of Alcohol and Drug Abuse Patient Records regulations: The Federal rules restrict any use of the information to criminally investigate or prosecute any alcohol or drug abuse patient.[facility] HospitalIn the event this information is protected by the Federal Confidentiality of Alcohol and Drug Abuse Patient Records regulations: The Federal rules restrict any use of the information to criminally investigate or prosecute any alcohol or drug abuse patient.[facility] HospitalIn the event this information is protected by the Federal Confidentiality of Alcohol and Drug Abuse Patient Records regulations: The Federal rules restrict any use of the information to criminally investigate or prosecute any alcohol or drug abuse patient.[facility] HospitalIn the event this information is protected by the Federal Confidentiality of Alcohol and Drug Abuse Patient Records regulations: The Federal rules restrict any use of the information to criminally investigate or prosecute any alcohol or drug abuse patient.[facility] HospitalIn the event this information is protected by the Federal Confidentiality of Alcohol and Drug Abuse Patient Records regulations: The Federal rules restrict any use of the information to criminally investigate or prosecute any alcohol or drug abuse patient.[facility] HospitalIn the event this information is protected by the Federal Confidentiality of Alcohol and Drug Abuse Patient Records regulations: The Federal rules restrict any use of the information to criminally investigate or prosecute any alcohol or drug abuse patient.[facility] HospitalIn the event this information is protected by the Federal Confidentiality of Alcohol and Drug Abuse Patient Records regulations: The Federal rules restrict any use of the information to criminally investigate or prosecute any alcohol or drug abuse patient.[facility] HospitalIn the event this information is protected by the Federal Confidentiality of Alcohol and Drug Abuse Patient Records regulations: The Federal rules restrict any use of the information to criminally investigate or prosecute any alcohol or drug abuse patient.[facility] HospitalIn the event this information is protected by the Federal Confidentiality of Alcohol and Drug Abuse Patient Records regulations: The Federal rules restrict any use of the information to criminally investigate or prosecute any alcohol or drug abuse patient.[facility] the event this information is protected by the Federal Confidentiality of Alcohol and Drug Abuse Patient Records regulations: The Federal rules restrict any use of the information to criminally investigate or prosecute any alcohol or drug abuse patient.[facility] HospitalIn the event this information is protected by the Federal Confidentiality of Alcohol and Drug Abuse Patient Records regulations: The Federal rules restrict any use of the information to criminally investigate or prosecute any alcohol or drug abuse patient.[facility] HospitalIn the event this information is protected by the Federal Confidentiality of Alcohol and Drug Abuse Patient Records regulations: The Federal rules restrict any use of the information to criminally investigate or prosecute any alcohol or drug abuse patient.[facility] the event this information is protected by the Federal Confidentiality of Alcohol and Drug Abuse Patient Records regulations: The Federal rules restrict any use of the information to criminally investigate or prosecute any alcohol or drug abuse patient.[facility] HospitalIn the event this information is protected by the Federal Confidentiality of Alcohol and Drug Abuse Patient Records regulations: The Federal rules restrict any use of the information to criminally investigate or prosecute any alcohol or drug abuse patient.[facility] HospitalIn the event this information is protected by the Federal Confidentiality of Alcohol and Drug Abuse Patient Records regulations: The Federal rules restrict any use of the information to criminally investigate or prosecute any alcohol or drug abuse patient.[facility] HospitalIn the event this information is protected by the Federal Confidentiality of Alcohol and Drug Abuse Patient Records regulations: The Federal rules restrict any use of the information to criminally investigate or prosecute any alcohol or drug abuse patient.[facility] HospitalIn the event this information is protected by the Federal Confidentiality of Alcohol and Drug Abuse Patient Records regulations: The Federal rules restrict any use of the information to criminally investigate or prosecute any alcohol or drug abuse patient.[facility] HospitalIn the event this information is protected by the Federal Confidentiality of Alcohol and Drug Abuse Patient Records regulations: The Federal rules restrict any use of the information to criminally investigate or prosecute any alcohol or drug abuse patient.[facility] HospitalIn the event this information is protected by the Federal Confidentiality of Alcohol and Drug Abuse Patient Records regulations: The Federal rules restrict any use of the information to criminally investigate or prosecute any alcohol or drug abuse patient.[facility] HospitalIn the event this information is protected by the Federal Confidentiality of Alcohol and Drug Abuse Patient Records regulations: The Federal rules restrict any use of the information to criminally investigate or prosecute any alcohol or drug abuse patient.[facility] HospitalIn the event this information is protected by the Federal Confidentiality of Alcohol and Drug Abuse Patient Records regulations: The Federal rules restrict any use of the information to criminally investigate or prosecute any alcohol or drug abuse patient.[facility] HospitalIn the event this information is protected by the Federal Confidentiality of Alcohol and Drug Abuse Patient Records regulations: The Federal rules restrict any use of the information to criminally investigate or prosecute any alcohol or drug abuse patient.[facility] HospitalIn the event this information is protected by the Federal Confidentiality of Alcohol and Drug Abuse Patient Records regulations: The Federal rules restrict any use of the information to criminally investigate or prosecute any alcohol or drug abuse patient.[facility] HospitalIn the event this information is protected by the Federal Confidentiality of Alcohol and Drug Abuse Patient Records regulations: The Federal rules restrict any use of the information to criminally investigate or prosecute any alcohol or drug abuse patient.[facility] HospitalIn the event this information is protected by the Federal Confidentiality of Alcohol and Drug Abuse Patient Records regulations: The Federal rules restrict any use of the information to criminally investigate or prosecute any alcohol or drug abuse patient.[facility] HospitalIn the event this information is protected by the Federal Confidentiality of Alcohol and Drug Abuse Patient Records regulations: The Federal rules restrict any use of the information to criminally investigate or prosecute any alcohol or drug abuse patient.[facility] HospitalIn the event this information is protected by the Federal Confidentiality of Alcohol and Drug Abuse Patient Records regulations: The Federal rules restrict any use of the information to criminally investigate or prosecute any alcohol or drug abuse patient.[facility]In the event this information is protected by the Federal Confidentiality of Alcohol and Drug Abuse Patient Records regulations: The Federal rules restrict any use of the information to criminally investigate or prosecute any alcohol or drug abuse patient.[facility] HospitalIn the event this information is protected by the Federal Confidentiality of Alcohol and Drug Abuse Patient Records regulations: The Federal rules restrict any use of the information to criminally investigate or prosecute any alcohol or drug abuse patient.[facility] HospitalIn the event this information is protected by the Federal Confidentiality of Alcohol and Drug Abuse Patient Records regulations: The Federal rules restrict any use of the information to criminally investigate or prosecute any alcohol or drug abuse patient.[facility] HospitalIn the event this information is protected by the Federal Confidentiality of Alcohol and Drug Abuse Patient Records regulations: The Federal rules restrict any use of the information to criminally investigate or prosecute any alcohol or drug abuse patient.[facility] HospitalIn the event this information is protected by the Federal Confidentiality of Alcohol and Drug Abuse Patient Records regulations: The Federal rules restrict any use of the information to criminally investigate or prosecute any alcohol or drug abuse patient.[facility] HospitalIn the event this information is protected by the Federal Confidentiality of Alcohol and Drug Abuse Patient Records regulations: The Federal rules restrict any use of the information to criminally investigate or prosecute any alcohol or drug abuse patient.[facility] HospitalIn the event this information is protected by the Federal Confidentiality of Alcohol and Drug Abuse Patient Records regulations: The Federal rules restrict any use of the information to criminally investigate or prosecute any alcohol or drug abuse patient.[facility] HospitalIn the event this information is protected by the Federal Confidentiality of Alcohol and Drug Abuse Patient Records regulations: The Federal rules restrict any use of the information to criminally investigate or prosecute any alcohol or drug abuse patient.[facility] HospitalIn the event this information is protected by the Federal Confidentiality of Alcohol and Drug Abuse Patient Records regulations: The Federal rules restrict any use of the information to criminally investigate or prosecute any alcohol or drug abuse patient.[facility] HospitalIn the event this information is protected by the Federal Confidentiality of Alcohol and Drug Abuse Patient Records regulations: The Federal rules restrict any use of the information to criminally investigate or prosecute any alcohol or drug abuse patient.[facility]In the event this information is protected by the Federal Confidentiality of Alcohol and Drug Abuse Patient Records regulations: The Federal rules restrict any use of the information to criminally investigate or prosecute any alcohol or drug abuse patient.[facility] HospitalIn the event this information is protected by the Federal Confidentiality of Alcohol and Drug Abuse Patient Records regulations: The Federal rules restrict any use of the information to criminally investigate or prosecute any alcohol or drug abuse patient.[facility] HospitalIn the event this information is protected by the Federal Confidentiality of Alcohol and Drug Abuse Patient Records regulations: The Federal rules restrict any use of the information to criminally investigate or prosecute any alcohol or drug abuse patient.[facility] HospitalIn the event this information is protected by the Federal Confidentiality of Alcohol and Drug Abuse Patient Records regulations: The Federal rules restrict any use of the information to criminally investigate or prosecute any alcohol or drug abuse patient.[facility] HospitalIn the event this information is protected by the Federal Confidentiality of Alcohol and Drug Abuse Patient Records regulations: The Federal rules restrict any use of the information to criminally investigate or prosecute any alcohol or drug abuse patient.[facility] HospitalIn the event this information is protected by the Federal Confidentiality of Alcohol and Drug Abuse Patient Records regulations: The Federal rules restrict any use of the information to criminally investigate or prosecute any alcohol or drug abuse patient.[facility] HospitalIn the event this information is protected by the Federal Confidentiality of Alcohol and Drug Abuse Patient Records regulations: The Federal rules restrict any use of the information to criminally investigate or prosecute any alcohol or drug abuse patient.[facility] HospitalIn the event this information is protected by the Federal Confidentiality of Alcohol and Drug Abuse Patient Records regulations: The Federal rules restrict any use of the information to criminally investigate or prosecute any alcohol or drug abuse patient.[facility] HospitalIn the event this information is protected by the Federal Confidentiality of Alcohol and Drug Abuse Patient Records regulations: The Federal rules restrict any use of the information to criminally investigate or prosecute any alcohol or drug abuse patient.[facility] HospitalIn the event this information is protected by the Federal Confidentiality of Alcohol and Drug Abuse Patient Records regulations: The Federal rules restrict any use of the information to criminally investigate or prosecute any alcohol or drug abuse patient.[facility] HospitalIn the event this information is protected by the Federal Confidentiality of Alcohol and Drug Abuse Patient Records regulations: The Federal rules restrict any use of the information to criminally investigate or prosecute any alcohol or drug abuse patient.[facility] HospitalIn the event this information is protected by the Federal Confidentiality of Alcohol and Drug Abuse Patient Records regulations: The Federal rules restrict any use of the information to criminally investigate or prosecute any alcohol or drug abuse patient.[facility] HospitalIn the event this information is protected by the Federal Confidentiality of Alcohol and Drug Abuse Patient Records regulations: The Federal rules restrict any use of the information to criminally investigate or prosecute any alcohol or drug abuse patient.[facility] HospitalIn the event this information is protected by the Federal Confidentiality of Alcohol and Drug Abuse Patient Records regulations: The Federal rules restrict any use of the information to criminally investigate or prosecute any alcohol or drug abuse patient.[facility] HospitalIn the event this information is protected by the Federal Confidentiality of Alcohol and Drug Abuse Patient Records regulations: The Federal rules restrict any use of the information to criminally investigate or prosecute any alcohol or drug abuse patient.[facility] HospitalIn the event this information is protected by the Federal Confidentiality of Alcohol and Drug Abuse Patient Records regulations: The Federal rules restrict any use of the information to criminally investigate or prosecute any alcohol or drug abuse patient.[facility] HospitalIn the event this information is protected by the Federal Confidentiality of Alcohol and Drug Abuse Patient Records regulations: The Federal rules restrict any use of the information to criminally investigate or prosecute any alcohol or drug abuse patient.[facility] HospitalIn the event this information is protected by the Federal Confidentiality of Alcohol and Drug Abuse Patient Records regulations: The Federal rules restrict any use of the information to criminally investigate or prosecute any alcohol or drug abuse patient.[facility] HospitalIn the event this information is protected by the Federal Confidentiality of Alcohol and Drug Abuse Patient Records regulations: The Federal rules restrict any use of the information to criminally investigate or prosecute any alcohol or drug abuse patient.[facility] HospitalIn the event this information is protected by the Federal Confidentiality of Alcohol and Drug Abuse Patient Records regulations: The Federal rules restrict any use of the information to criminally investigate or prosecute any alcohol or drug abuse patient.[facility] HospitalIn the event this information is protected by the Federal Confidentiality of Alcohol and Drug Abuse Patient Records regulations: The Federal rules restrict any use of the information to criminally investigate or prosecute any alcohol or drug abuse patient.[facility] HospitalIn the event this information is protected by the Federal Confidentiality of Alcohol and Drug Abuse Patient Records regulations: The Federal rules restrict any use of the information to criminally investigate or prosecute any alcohol or drug abuse patient.[facility] the event this information is protected by the Federal Confidentiality of Alcohol and Drug Abuse Patient Records regulations: The Federal rules restrict any use of the information to criminally investigate or prosecute any alcohol or drug abuse patient.[facility] HospitalIn the event this information is protected by the Federal Confidentiality of Alcohol and Drug Abuse Patient Records regulations: The Federal rules restrict any use of the information to criminally investigate or prosecute any alcohol or drug abuse patient.[facility] HospitalIn the event this information is protected by the Federal Confidentiality of Alcohol and Drug Abuse Patient Records regulations: The Federal rules restrict any use of the information to criminally investigate or prosecute any alcohol or drug abuse patient.[facility]In the event this information is protected by the Federal Confidentiality of Alcohol and Drug Abuse Patient Records regulations: The Federal rules restrict any use of the information to criminally investigate or prosecute any alcohol or drug abuse patient.[facility] HospitalIn the event this information is protected by the Federal Confidentiality of Alcohol and Drug Abuse Patient Records regulations: The Federal rules restrict any use of the information to criminally investigate or prosecute any alcohol or drug abuse patient.[facility] HospitalIn the event this information is protected by the Federal Confidentiality of Alcohol and Drug Abuse Patient Records regulations: The Federal rules restrict any use of the information to criminally investigate or prosecute any alcohol or drug abuse patient.[facility] HospitalIn the event this information is protected by the Federal Confidentiality of Alcohol and Drug Abuse Patient Records regulations: The Federal rules restrict any use of the information to criminally investigate or prosecute any alcohol or drug abuse patient.[facility] HospitalIn the event this information is protected by the Federal Confidentiality of Alcohol and Drug Abuse Patient Records regulations: The Federal rules restrict any use of the information to criminally investigate or prosecute any alcohol or drug abuse patient.[facility] HospitalIn the event this information is protected by the Federal Confidentiality of Alcohol and Drug Abuse Patient Records regulations: The Federal rules restrict any use of the information to criminally investigate or prosecute any alcohol or drug abuse patient.[facility] HospitalIn the event this information is protected by the Federal Confidentiality of Alcohol and Drug Abuse Patient Records regulations: The Federal rules restrict any use of the information to criminally investigate or prosecute any alcohol or drug abuse patient.[facility] HospitalIn the event this information is protected by the Federal Confidentiality of Alcohol and Drug Abuse Patient Records regulations: The Federal rules restrict any use of the information to criminally investigate or prosecute any alcohol or drug abuse patient.[facility] HospitalIn the event this information is protected by the Federal Confidentiality of Alcohol and Drug Abuse Patient Records regulations: The Federal rules restrict any use of the information to criminally investigate or prosecute any alcohol or drug abuse patient.[facility] HospitalIn the event this information is protected by the Federal Confidentiality of Alcohol and Drug Abuse Patient Records regulations: The Federal rules restrict any use of the information to criminally investigate or prosecute any alcohol or drug abuse patient.[facility] HospitalIn the event this information is protected by the Federal Confidentiality of Alcohol and Drug Abuse Patient Records regulations: The Federal rules restrict any use of the information to criminally investigate or prosecute any alcohol or drug abuse patient.[facility] HospitalIn the event this information is protected by the Federal Confidentiality of Alcohol and Drug Abuse Patient Records regulations: The Federal rules restrict any use of the information to criminally investigate or prosecute any alcohol or drug abuse patient.[facility] HospitalIn the event this information is protected by the Federal Confidentiality of Alcohol and Drug Abuse Patient Records regulations: The Federal rules restrict any use of the information to criminally investigate or prosecute any alcohol or drug abuse patient.[facility] HospitalIn the event this information is protected by the Federal Confidentiality of Alcohol and Drug Abuse Patient Records regulations: The Federal rules restrict any use of the information to criminally investigate or prosecute any alcohol or drug abuse patient.[facility] HospitalIn the event this information is protected by the Federal Confidentiality of Alcohol and Drug Abuse Patient Records regulations: The Federal rules restrict any use of the information to criminally investigate or prosecute any alcohol or drug abuse patient.[facility] HospitalIn the event this information is protected by the Federal Confidentiality of Alcohol and Drug Abuse Patient Records regulations: The Federal rules restrict any use of the information to criminally investigate or prosecute any alcohol or drug abuse patient.[facility] HospitalIn the event this information is protected by the Federal Confidentiality of Alcohol and Drug Abuse Patient Records regulations: The Federal rules restrict any use of the information to criminally investigate or prosecute any alcohol or drug abuse patient.[facility] HospitalIn the event this information is protected by the Federal Confidentiality of Alcohol and Drug Abuse Patient Records regulations: The Federal rules restrict any use of the information to criminally investigate or prosecute any alcohol or drug abuse patient.[facility] HospitalIn the event this information is protected by the Federal Confidentiality of Alcohol and Drug Abuse Patient Records regulations: The Federal rules restrict any use of the information to criminally investigate or prosecute any alcohol or drug abuse patient.[facility] HospitalIn the event this information is protected by the Federal Confidentiality of Alcohol and Drug Abuse Patient Records regulations: The Federal rules restrict any use of the information to criminally investigate or prosecute any alcohol or drug abuse patient.[facility] HospitalIn the event this information is protected by the Federal Confidentiality of Alcohol and Drug Abuse Patient Records regulations: The Federal rules restrict any use of the information to criminally investigate or prosecute any alcohol or drug abuse patient.[facility] HospitalIn the event this information is protected by the Federal Confidentiality of Alcohol and Drug Abuse Patient Records regulations: The Federal rules restrict any use of the information to criminally investigate or prosecute any alcohol or drug abuse patient.[facility] HospitalIn the event this information is protected by the Federal Confidentiality of Alcohol and Drug Abuse Patient Records regulations: The Federal rules restrict any use of the information to criminally investigate or prosecute any alcohol or drug abuse patient.[facility] HospitalIn the event this information is protected by the Federal Confidentiality of Alcohol and Drug Abuse Patient Records regulations: The Federal rules restrict any use of the information to criminally investigate or prosecute any alcohol or drug abuse patient.[facility] HospitalIn the event this information is protected by the Federal Confidentiality of Alcohol and Drug Abuse Patient Records regulations: The Federal rules restrict any use of the information to criminally investigate or prosecute any alcohol or drug abuse patient.[facility] HospitalIn the event this information is protected by the Federal Confidentiality of Alcohol and Drug Abuse Patient Records regulations: The Federal rules restrict any use of the information to criminally investigate or prosecute any alcohol or drug abuse patient.[facility] HospitalIn the event this information is protected by the Federal Confidentiality of Alcohol and Drug Abuse Patient Records regulations: The Federal rules restrict any use of the information to criminally investigate or prosecute any alcohol or drug abuse patient.[facility] HospitalIn the event this information is protected by the Federal Confidentiality of Alcohol and Drug Abuse Patient Records regulations: The Federal rules restrict any use of the information to criminally investigate or prosecute any alcohol or drug abuse patient.[facility] HospitalIn the event this information is protected by the Federal Confidentiality of Alcohol and Drug Abuse Patient Records regulations: The Federal rules restrict any use of the information to criminally investigate or prosecute any alcohol or drug abuse patient.[facility] HospitalIn the event this information is protected by the Federal Confidentiality of Alcohol and Drug Abuse Patient Records regulations: The Federal rules restrict any use of the information to criminally investigate or prosecute any alcohol or drug abuse patient.[facility] HospitalIn the event this information is protected by the Federal Confidentiality of Alcohol and Drug Abuse Patient Records regulations: The Federal rules restrict any use of the information to criminally investigate or prosecute any alcohol or drug abuse patient.[facility] HospitalIn the event this information is protected by the Federal Confidentiality of Alcohol and Drug Abuse Patient Records regulations: The Federal rules restrict any use of the information to criminally investigate or prosecute any alcohol or drug abuse patient.[facility] HospitalIn the event this information is protected by the Federal Confidentiality of Alcohol and Drug Abuse Patient Records regulations: The Federal rules restrict any use of the information to criminally investigate or prosecute any alcohol or drug abuse patient.[facility] HospitalIn the event this information is protected by the Federal Confidentiality of Alcohol and Drug Abuse Patient Records regulations: The Federal rules restrict any use of the information to criminally investigate or prosecute any alcohol or drug abuse patient.[facility] HospitalIn the event this information is protected by the Federal Confidentiality of Alcohol and Drug Abuse Patient Records regulations: The Federal rules restrict any use of the information to criminally investigate or prosecute any alcohol or drug abuse patient.[facility] HospitalIn the event this information is protected by the Federal Confidentiality of Alcohol and Drug Abuse Patient Records regulations: The Federal rules restrict any use of the information to criminally investigate or prosecute any alcohol or drug abuse patient.[facility] HospitalIn the event this information is protected by the Federal Confidentiality of Alcohol and Drug Abuse Patient Records regulations: The Federal rules restrict any use of the information to criminally investigate or prosecute any alcohol or drug abuse patient.[facility] HospitalIn the event this information is protected by the Federal Confidentiality of Alcohol and Drug Abuse Patient Records regulations: The Federal rules restrict any use of the information to criminally investigate or prosecute any alcohol or drug abuse patient.[facility] HospitalIn the event this information is protected by the Federal Confidentiality of Alcohol and Drug Abuse Patient Records regulations: The Federal rules restrict any use of the information to criminally investigate or prosecute any alcohol or drug abuse patient.[facility] HospitalIn the event this information is protected by the Federal Confidentiality of Alcohol and Drug Abuse Patient Records regulations: The Federal rules restrict any use of the information to criminally investigate or prosecute any alcohol or drug abuse patient.[facility] HospitalIn the event this information is protected by the Federal Confidentiality of Alcohol and Drug Abuse Patient Records regulations: The Federal rules restrict any use of the information to criminally investigate or prosecute any alcohol or drug abuse patient.[facility] Reason for Visit (unrecogniz ed section and content) Reason Comments Anticoagulation Reason Comments Allied Health Visit DM Specialty Diagnoses / Procedures Referred By Contac t Referred To Contact PHARMACY Diagnoses Pharm Med Procedures Pharm Med Self Pharm Med [facility] [address] [place] [address] Referral ID Status Reason Start Date Expiration Date V isits Requested Visits Authorized [id number] Closed Financial Clearance Required - Self Pay Financial Clearance Not Required 09/29/2021 12/28/2021 1 1 Reason Comments Anticoagulation INR Lab Result Reason Comments Anticoagulation Telephone Fu Lab INR res ult Reason Comments prescription assistance Reason Comments Follow Up Reason Comments Allied Health Visit DM Specialty Diagnoses / Procedures Referred By Contac t Referred To Contact PHARMACY Diagnoses Pharm med Procedures pharm med Major Feltoni, AUDITING SPECIALIST.[employer] [address] [place] [address] Pharm Med [facility] [address] [place] [address] Referral ID Status Reason Start Date Expiration Date V isits Requested Visits Authorized [id number] Pending Review 01/21/2022 04/21/2022 5 5 Reason Comments Anticoagulation Telephone Fu Reason Comments Opened In Error Reason Onset Date Comments Anticoagulation Telephone Fu 03/31/2022 Lab INR Result Reason Comments rec'd 2 boxes of lantus from [employer] Reason Comments Anticoagulation Telephone Fu INR Lab Res ult Reason Onset Date Comments Refill Request 04/29/2022 Reason Comments Anticoagulation Telephone Fu Lab INR Reason Onset Date Comments Recheck Follow up Immunizations 06/06/2022 Flu vaccination Reason Comments Results Reason Comments rec'd 2 boxes of lantus Reason Comments Diabetes Reason Comments Orders Reason Onset Date Comments Refill Request 08/04/2022 Reason Comments Rx refill; discontinued medication Reason Onset Date Comments Anticoagulation Telephone Fu 08/11/2022 Lab INR Result Reason Onset Date Comments Anticoagulation Telephone Fu 08/25/2022 Lab INR Result Reason Onset Date Comments Anticoagulation 09/15/2022 INR Result Reason Comments 4 month follow up Reason Comments Medication question Has Plavix been disc ontinued Reason Comments Forms Fax from [facility] Reason Comments Patient Question Reason Comments approval from [facility] for pt assistan ce Reason Onset Date Comments Anticoagulation 11/10/2022 Lab INR Reason Onset Date Comments Anticoagulation Telephone Fu 11/13/2022 Maggie e INR Opened In Error 11/13/2022 Reason Onset Date Comments Anticoagulation 12/08/2022 Lab INR Result Reason Comments Results Reason Comments Urine CX order needed Reason Comments Anticoagulation Telephone Fu Home INR re sult Reason Comments urine symptoms Reason Comments Patient Update Reason Onset Date Comments Refill Request 04/16/2023 Reason Comments Consult recurrent uti Reason Comments Patient Question Orders Reason Comments Established Patient Follow up Reason Onset Date Comments Anticoagulation Telephone Fu 06/11/2023 Lab INR Reason Comments Anticoagulation Telephone Fu Home INR Reason Onset Date Comments Anticoagulation Telephone Fu 07/31/2023 Lab INR Reason Comments Patient Assistance Reason Comments Appointment Primary Care Pharmac y Reason Comments pt assistance [facility] application for m Reason Comments patient update on medication Reason Comments Patient Question Potassium Supplement ation Reason Onset Date Comments Anticoagulation Telephone Fu 01/07/2024 Lab INR Reason Comments Results Potassium Reason Onset Date Comments Pharmacy Patient Assistance Program 01/11/2024 Ozempic, (Basaglar and Humalog listed for 2024 renewal) Reason Comments Pharmacy Patient Assistance Program Ozem pic Application Update Reason Onset Date Comments Patient Assistance Program 04/29/2024 Ozemp ic 0.25/0.5mg Reason Comments rec'd ozempic 0.25mg/0.5mg 1X3 ml prefil led .68mg/ml Reason Comments Appointment Reason Onset Date Comments Anticoagulation Telephone Fu 06/13/2024 Lab INR Result Reason Onset Date Comments Refill Request 06/27/2024 Reason Comments F/U 6 months Reason Onset Date Comments Anticoagulation Telephone Fu 09/26/2024 Lab INR Result Reason Comments new application needed for 2024 from [facility] Do [facility] In Person. Reason Comments Results Reason Comments Missed Appointment Primary care resched ule Reason Onset Date Comments Anticoagulation Telephone Fu 11/07/2024 Lab INR Result Reason Comments Cough Chest congestion, wh eeze, SOB, headache, lower R back and front R side pain with cough, head congestion, x 1 week Reason Comments Patient Update Liver ultrasound Reason Comments Forms Patient Assistance P ron Chrissy [employer] Renewal (Basaglar & Humalog Kwikpens) Reason Onset Date Comments Anticoagulation Telephone Fu 12/05/2024 Lab INR Result Reason Onset Date Comments Outpatient Colonoscopy 12/09/2024 Patient i s overdue for colorectal cancer screening since 11/01/2022. Patient will need consult with Erick Talbert CNP prior to colorectal cancer screening. Reason Comments Follow Up Due for colonoscopy Reason Comments rec'd 5 boxes of ozempic Reason Comments Patient Assistance Ozempic refills Reason Onset Date Comments Anticoagulation Telephone Fu 04/10/2025 Lab INR Result Reason Comments Forms Patient Assistance P rogram - Magali Nordisk(Ozempic 0.25mg/0.5mg) Care Teams (unrecognized sec tion and content) Expert Witness Relationship Specialty Start Date End Date Estephania Rodriguez MD [address] [place] [address] PCP - General 04/21/07 Ezio High, [facility] [address] [place] [address] Pharmacist Pharmacy 07/18/20 Expert Witness Relationship Specialty Start Date End Date Estephania Rodriguez MD [address] [facility] [place] [address] PCP - General 04/21/07 Ezio High, [facility] [address] [facility] [place] [place] [address] Pharmacist Pharmacy 07/18/20 Expert Witness Relationship Specialty Start Date End Date Estephania Rodriguez MD [address] [facility] [place] [place] [address] PCP - General 04/21/07 Ezio High, [facility] [address] [facility] [place] [place] [address] Pharmacist Pharmacy 07/18/20 13, Pharmacist [phone] [place] [address] Pharmacist Pharmacy 12/10/21 Expert Witness Relationship Specialty Start Date End Date Estephania Rodriguez MD [address] [facility] [place] [place] [address] PCP - General 04/21/07 Ezio High, [facility] [address] [facility] [place] [place] [address] Pharmacist Pharmacy 07/18/20 13, Pharmacist [address] [place] [address] Pharmacist Pharmacy 12/10/21 Expert Witness Relationship Specialty Start Date End Date Estephania Rodriguez MD [address] [facility] [place] [place] [address] PCP - General 04/21/07 Ezio High, [facility] [address] [facility] [place] [address] Pharmacist Pharmacy 07/18/20 13, Pharmacist [address] [place] [address] Pharmacist Pharmacy 12/10/21 Expert Witness Relationship Specialty Start Date End Date Estephania Rdoriguez MD [address] [facility] [place] [place] [address] PCP - General 04/21/07 Ezio High, [facility] [address] [facility] [place] [place] [address] Pharmacist Pharmacy 07/18/20 Expert Witness Relationship Specialty Start Date End Date Estephania Rodriguez MD [address] [place] [address] PCP - General 04/21/07 Ezio High, [facility] [address] [facility] [place] [place] [address] Pharmacist Pharmacy 07/18/20 13, Pharmacist [address] [place] [address] Pharmacist Pharmacy 12/10/21 Expert Witness Relationship Specialty Start Date End Date Estephania Rodriguez MD [address] [place] [address] PCP - General 04/21/07 Ezio High, [facility] [address] [facility] [place] [place] [address] Pharmacist Pharmacy 07/18/20 13, Pharmacist [address]20 [place] [address] Pharmacist Pharmacy 12/10/21 Expert Witness Relationship Specialty Start Date End Date Estephania Rodriguez MD [address] [facility] [place] [place] [address] PCP - General 04/21/07 Ezio High, [facility] [address] [facility] [place] [address] Pharmacist Pharmacy 07/18/20 13, Pharmacist 64124 [place] [address] Pharmacist Pharmacy 12/10/21 Expert Witness Relationship Specialty Start Date End Date Estephania Rodriguez MD [address] [place] [address] PCP - General 04/21/07 [facility] [address] [place] [address] Pharmacist Pharmacy 07/18/20 13, Pharmacist [address] [place] [address] Pharmacist Pharmacy 12/10/21 Expert Witness Relationship Specialty Start Date End Date Estephania Rodriguez MD [address] [place] [address] PCP - General 04/21/07 [facility] [address] [place] [address] Pharmacist Pharmacy 07/18/20 13, Pharmacist [address] [place] [address] Pharmacist Pharmacy 12/10/21 Expert Witness Relationship Specialty Start Date End Date Estephania Rodriguez MD [address] [place] [address] PCP - General 04/21/07 [facility] [address] [place] [address] Pharmacist Pharmacy 07/18/20 13, Pharmacist [address] [place] [address] Pharmacist Pharmacy 12/10/21 Expert Witness Relationship Specialty Start Date End Date Estephania Rodriguez MD [address] [place] [address] PCP - General 04/21/07 [facility] [address] [place] [address] Pharmacist Pharmacy 07/18/20 13, Pharmacist [phone] [place] [address] Pharmacist Pharmacy 12/10/21 Expert Witness Relationship Specialty Start Date End Date Estephania Rodriguez MD [address] [place] [address] PCP - General 04/21/07 [facility] [address] [place] [address] Pharmacist Pharmacy 07/18/20, Pharmacist [phone] [place] [address] Pharmacist Pharmacy 12/10/21 Expert Witness Relationship Specialty Start Date End Date Estephania Rodriguez MD [address] [place] [address] PCP - General 04/21/07 [facility] [address] [place] [address] Pharmacist Pharmacy 07/18/20 13, Pharmacist [phone] [place] [address] Pharmacist Pharmacy 12/10/21 Expert Witness Relationship Specialty Start Date End Date Estephania Rodriguez MD [address] [place] [address] PCP - General 04/21/07 [facility] [address] [place] [address] Pharmacist Pharmacy 07/18/20 13, Pharmacist [phone] [place] [address] Pharmacist Pharmacy 12/10/21 Expert Witness Relationship Specialty Start Date End Date Estephania Rodriguez MD [address] [place] [address] PCP - General 04/21/07 [facility] [address] [place] [address] Pharmacist Pharmacy 07/18/20 13, Pharmacist [address]123 [place] [address] Pharmacist Pharmacy 12/10/21 Expert Witness Relationship Specialty Start Date End Date Estephania Rodriguez MD [address] [place] [address] PCP - General 04/21/07 [facility] [address] [place] [address] Pharmacist Pharmacy 07/18/20 13, Pharmacist [phone] [place] [address] Pharmacist Pharmacy 12/10/21 Expert Witness Relationship Specialty Start Date End Date Estephania Rodriguez MD [address] [place] [address] PCP - General 04/21/07 [facility] [address] [place] [address] Pharmacist Pharmacy 07/18/20 13, Pharmacist [phone] [place] [address] Pharmacist Pharmacy 12/10/21 Expert Witness Relationship Specialty Start Date End Date Estephania Rodriguez MD [address] [place] [address] PCP - General 04/21/07 Ezio High, [facility] [address] [place] [address] Pharmacist Pharmacy 07/18/20 13, Pharmacist [phone] [place] [address] Pharmacist Pharmacy 12/10/21 Expert Witness Relationship Specialty Start Date End Date Estephania Rodriguez MD [address] [facility] [place] [address] PCP - General 04/21/07 [facility] [address] [facility] [place] [place] [address] Pharmacist Pharmacy 07/18/20 13, Pharmacist [address] [place] [address] Pharmacist Pharmacy 12/10/21 Team Status: Active Member Role Status Dates Dr. Estephania Rodriguez MD Family Provider Active Dr. Estephania Rodriguez MD Primary Care Provider Active Team Status: Inactive Member Role Status Dates Dr. Estephania Rodriguez MD Primary Care Provider Active Dr. Dane Parrish , Emergency Provider Active Expert Witness Relationship Specialty Start Date End Date Estephania Rodriguez MD [address] [place] [address] PCP - General 04/21/07 [facility] [address] [place] [address] Pharmacist Pharmacy 07/18/20 13, Pharmacist [address]65 [place] [address] Pharmacist Pharmacy 12/10/21 Expert Witness Relationship Specialty Start Date End Date Estephania Rodriguez MD [address] [place] [address] PCP - General 04/21/07 [facility] [address] [place] [address] Pharmacist Pharmacy 07/18/20 13, Pharmacist [address]27 [place] [address] Pharmacist Pharmacy 12/10/21 Expert Witness Relationship Specialty Start Date End Date Estephania Rodriguez MD [address] [facility] [place] [place] [address] PCP - General 04/21/07 [facility] [address] [facility] [place] [address] Pharmacist Pharmacy 07/18/20 13, Pharmacist [address]24 [place] [address] Pharmacist Pharmacy 12/10/21 Expert Witness Relationship Specialty Start Date End Date Estephania Rodriguez MD [address] [place] [address] PCP - General 04/21/07 [facility] [address] [facility] [place] [address] Pharmacist Pharmacy 07/18/20 13, Pharmacist [address]609 [place] [address] Pharmacist Pharmacy 12/10/21 Expert Witness Relationship Specialty Start Date End Date Estephania Rodriguez MD [address] [facility] [place] [address] PCP - General 04/21/07 [facility] [address] [facility] [place] [address] Pharmacist Pharmacy 07/18/20 13, Pharmacist [address]61 [place] [address] Pharmacist Pharmacy 12/10/21 Expert Witness Relationship Specialty Start Date End Date Estephania Rodriguez MD [address] [facility] [place] [address] PCP - General 04/21/07 Ezio High, [facility] [address] [facility] [place] [address] Pharmacist Pharmacy 07/18/20 13, Pharmacist [phone] [place] [address] Pharmacist Pharmacy 12/10/21 Expert Witness Relationship Specialty Start Date End Date Estephania Rodriguez MD [address] [place] [address] PCP - General 04/21/07, Pharmacist [phone] [place] [address] Pharmacist Pharmacy 12/10/21 Expert Witness Relationship Specialty Start Date End Date Estephania Rodriguez MD [address] [place] [address] PCP - General 04/21/07, Pharmacist [phone] [place] [address] Pharmacist Pharmacy 12/10/21 Expert Witness Relationship Specialty Start Date End Date Estephania Rodriguez MD [address] [place] [address] PCP - General 04/21/07, Pharmacist [phone] [place] [address] Pharmacist Pharmacy 12/10/21 Expert Witness Relationship Specialty Start Date End Date Estephania Rodriguez MD [address] [place] [address] PCP - General 04/21/07, Pharmacist [phone] [place] [address] Pharmacist Pharmacy 12/10/21 Expert Witness Relationship Specialty Start Date End Date Estephania Rodriguez MD [address] [place] [address] PCP - General 04/21/07, Pharmacist [address]83 [place] [address] Pharmacist Pharmacy 12/10/21 Expert Witness Relationship Specialty Start Date End Date Estephania Rodriguez MD [address] [place] [address] PCP - General 04/21/07, Pharmacist 30607 [place] [address] Pharmacist Pharmacy 12/10/21 Expert Witness Relationship Specialty Start Date End Date Estephania Rodriguez MD [address] [place] [address] PCP - General 04/21/07, Pharmacist [phone] [place] [address] Pharmacist Pharmacy 12/10/21 [place] [address] [place] [address] Pharmacist Pharmacy 11/25/23 Expert Witness Relationship Specialty Start Date End Date Estephania Rodriguez MD [address] [place] [address] PCP - General 04/21/07, Pharmacist [phone] [place] [address] 38668 Pharmacist Pharmacy 12/10/21 BovinaJake shaikhAlyssa [place] [address] [place] [address] Pharmacist Pharmacy 11/25/23 Expert Witness Relationship Specialty Start Date End Date Estephania Rodriguez MD [address] [place] [address] PCP - General 04/21/07, Pharmacist [address]35 [place] [address] Pharmacist Pharmacy 12/10/21 [place] [address] [place] [address] Pharmacist Pharmacy 11/25/23 Expert Witness Relationship Specialty Start Date End Date Estephania Rodriguez MD [address] [place] [address] PCP - General 04/21/07, Pharmacist 63304 [place] [address] Pharmacist Pharmacy 12/10/21 [place] [address] [place] [address] Pharmacist Pharmacy 11/25/23 Expert Witness Relationship Specialty Start Date End Date Estephania Rodriguez MD [address] [place] [address] PCP - General 04/21/07, Pharmacist 79683 [place] [address] Pharmacist Pharmacy 12/10/21 [place] [address] [place] [address] Pharmacist Pharmacy 11/25/23 Expert Witness Relationship Specialty Start Date End Date Estephania Rodriguez MD [address] [place] [address] PCP - General 04/21/07, Pharmacist [address]12 [place] [address] Pharmacist Pharmacy 12/10/21 [place] [address] [place] [address] Pharmacist Pharmacy 11/25/23 Expert Witness Relationship Specialty Start Date End Date Estephania Rodriguez MD [address] [place] [address] PCP - General 04/21/07, Pharmacist [address]40 [place] [address] Pharmacist Pharmacy 12/10/21 GraceJake shaikhA[place]a [place] [address] [place] [address] Pharmacist Pharmacy 11/25/23 Expert Witness Relationship Specialty Start Date End Date Estephania Rodriguez MD [address] [place] [address] PCP - General 04/21/07, Pharmacist [address]999 [place] [address] Pharmacist Pharmacy 12/10/21 [place] [address] [place] [address] Pharmacist Pharmacy 11/25/23 Expert Witness Relationship Specialty Start Date End Date Estephania Rodriguez MD [address] [place] [address] PCP - General 04/21/07, Pharmacist [address]296 [place] [address] Pharmacist Pharmacy 12/10/21 [place] [address] [place] [address] Pharmacist Pharmacy 11/25/23 Expert Witness Relationship Specialty Start Date End Date Estephania Rodriguez MD [address] [place] [address] PCP - General 04/21/07, Pharmacist 22033 [place] [address] Pharmacist Pharmacy 12/10/21 Grace JakeA[place] [address] [place] [address] Pharmacist Pharmacy 11/25/23 Expert Witness Relationship Specialty Start Date End Date Estephania Rodriguez MD [address] [place] [address] PCP - General 04/21/07, Pharmacist [address]37 [place] [address] Pharmacist Pharmacy 12/10/21 Bovina, JakeA[place] [address] [place] [address] Pharmacist Pharmacy 11/25/23 Expert Witness Relationship Specialty Start Date End Date Estephania Rodriguez MD [address] [place] [address] PCP - General 04/21/07, Pharmacist [address]10 [place] [address] Pharmacist Pharmacy 12/10/21 [place] [address] [place] [address] Pharmacist Pharmacy 11/25/23 Expert Witness Relationship Specialty Start Date End Date Estephania Rodriguez MD [address] [place] [address] PCP - General 04/21/07, Pharmacist [address]50 [place] [address] Pharmacist Pharmacy 12/10/21 GraceCorrie shaikhilyAlyssa [place] [address] [place] [address] Pharmacist Pharmacy 11/25/23 Expert Witness Relationship Specialty Start Date End Date Estephania Rodriguez MD [address] [place] [address] PCP - General 04/21/07, Pharmacist [address]255 [place] [address] Pharmacist Pharmacy 12/10/21 [place] [address] [place] [address] Pharmacist Pharmacy 11/25/23 Expert Witness Relationship Specialty Start Date End Date Estephania Rodriguez MD [address] [place] [address] PCP - General 04/21/07, Pharmacist 42809 [place] [address] Pharmacist Pharmacy 12/10/21 [place]inaJakeA[place] [address] [place] [address] Pharmacist Pharmacy 11/25/23 Vinita Felton, AUDITING SPECIALIST.MANAGER ENERGY [address] [place] [address] Parts Sales Manager Internal Medicine 08/15/24 Laila Nazario, AUDITING SPECIALIST.CENTRAL OFFICE INSTALLER [address] [place] [address] Parts Sales Manager Internal Medicine 08/15/24 Expert Witness Relationship Specialty Start Date End Date Estephania Rodriguez MD [address] [place] [address] PCP - General 04/21/07 13, Pharmacist 33194 [place] [address] Pharmacist Pharmacy 12/10/21 Jkae EdwardsA[place] [address] [place] [address] Pharmacist Pharmacy 11/25/23 Vinita Felton, AUDITING SPECIALIST.MANAGER ENERGY [address] [place] [address] Parts Sales Manager Internal Medicine 08/15/24 Liala Nazario AUDITING SPECIALIST.CENTRAL OFFICE INSTALLER [facility] [place] [address] Parts Sales Manager Internal Medicine 08/15/24 Expert Witness Relationship Specialty Start Date End Date Estephania Rodriguez MD [address] [place] [address] PCP - General 04/21/07 13, Pharmacist [address]11 [place] [address] Pharmacist Pharmacy 12/10/21 Jake [place] [address] [place] [address] Pharmacist Pharmacy 11/25/23 Vinita Felton, AUDITING SPECIALIST.MANAGER ENERGY [address] [place] [address] Parts Sales Manager Internal Medicine 08/15/24 Laila Nazario AUDITING SPECIALIST.CENTRAL OFFICE INSTALLER [facility] [place] [address] Parts Sales Manager Internal Medicine 08/15/24 Expert Witness Relationship Specialty Start Date End Date Estephania Rodriguez MD [address] [place] [address] PCP - General 04/21/07 13, Pharmacist [address]32 [place] [address] Pharmacist Pharmacy 12/10/21 [place]Jake[place] [address] [place] [address] Pharmacist Pharmacy 11/25/23 Vinita Felton, AUDITING SPECIALIST.MANAGER ENERGY [address] [place] [address] Parts Sales Manager Internal Medicine 08/15/24 Laila Nazario AUDITING SPECIALIST.CENTRAL OFFICE INSTALLER [address] [place] [address] Parts Sales Manager Internal Medicine 08/15/24 Expert Witness Relationship Specialty Start Date End Date Estephania Rodriguez MD [address] [place] [address] PCP - General 04/21/07 13, Pharmacist [address]21 [place] [address] Pharmacist Pharmacy 12/10/21 [place] [address] [place] [address] Pharmacist Pharmacy 11/25/23 Vinita Felton, AUDITING SPECIALIST.MANAGER ENERGY [address] [place] [address] Parts Sales Manager Internal Medicine 08/15/24 Laila Nazario AUDITING SPECIALIST.CENTRAL OFFICE INSTALLER [facility] [place] [address] Parts Sales Manager Internal Medicine 08/15/24 Expert Witness Relationship Specialty Start Date End Date Estephania Rodriguez MD [address] [place] [address] PCP - General 04/21/07, Pharmacist [address]08 [place] [address] Pharmacist Pharmacy 12/10/21 [place]CorrieJakeChrist[place] [address] [place] [address] Pharmacist Pharmacy 11/25/23 Vinita Felton, AUDITING SPECIALIST.MANAGER ENERGY [address] [place] [address] Parts Sales Manager Internal Medicine 08/15/24 Laila Nazario APRN.CENTRAL OFFICE INSTALLER [address] [place] [address] Parts Sales Manager Internal Medicine 08/15/24 Expert Witness Relationship Specialty Start Date End Date Estephania Rodriguez MD [address] [place] [address] PCP - General 04/21/07, Pharmacist [address]275 [place] [address] Pharmacist Pharmacy 12/10/21 [place] [address] [place] [address] Pharmacist Pharmacy 11/25/23 Vinita Felton, AUDITING SPECIALIST.MANAGER ENERGY [address] [place] [address] Parts Sales Manager Internal Medicine 08/15/24 Laila Nazario AUDITING SPECIALIST.CENTRAL OFFICE INSTALLER [address] [place], [place] [phone] Sales Manager Internal Medicine 08/15/24 Expert Witness Relationship Specialty Start Date End Date Estephania Rodriguez MD [address] [place] [address] PCP - General 04/21/07 13, Pharmacist [address]175 [place] [address] Pharmacist Pharmacy 12/10/21 [place] [address] [place] [address] Pharmacist Pharmacy 11/25/23 Vinita Felton APRN.MANAGER ENERGY [address] [place] [address] Parts Sales Manager Internal Medicine 08/15/24 Laila Nazario APRN.CENTRAL OFFICE INSTALLER [address] [place] [address] Parts Sales Manager Internal Medicine 08/15/24 Expert Witness Relationship Specialty Start Date End Date Estephania Rodriguez MD [address] [place] [address] PCP - General 04/21/07 13, Pharmacist [address] [place] [address] Pharmacist Pharmacy 12/10/21 [place]CorrieJakeChrist[place] [address] [place] [address] Pharmacist Pharmacy 11/25/23 Vinita Felton, HEIKE.MANAGER ENERGY [address] [place] [address] Parts Sales Manager Internal Medicine 08/15/24 Laila Nazario APRN.CENTRAL OFFICE INSTALLER [address] [place] [address] Parts Sales Manager Internal Medicine 08/15/24 Expert Witness Relationship Specialty Start Date End Date Estephania Rodriguez MD [address] [place] [address] PCP - General 04/21/07, Pharmacist 34473 [place] [address] Pharmacist Pharmacy 12/10/21 [place] [address] [place] [address] Pharmacist Pharmacy 11/25/23 Vinita Felton APRN.MANAGER ENERGY [address] [place] [address] Parts Sales Manager Internal Medicine 08/15/24 Laila Nazario APRN.CENTRAL OFFICE INSTALLER [address] [place] [address] Parts Sales Manager Internal Medicine 08/15/24 Expert Witness Relationship Specialty Start Date End Date Estephania Rodriguez MD [address] [place] [address] PCP - General 04/21/07, Pharmacist 40152 [place] [address] Pharmacist Pharmacy 12/10/21 [place] [address] [place] [address] Pharmacist Pharmacy 11/25/23 Vinita Felton APRN.MANAGER ENERGY [address] [place] [address] Parts Sales Manager Internal Medicine 08/15/24 Laila Nazario APRN.CENTRAL OFFICE INSTALLER [address] [place] [address] Parts Sales Manager Internal Medicine 08/15/24 Expert Witness Relationship Specialty Start Date End Date Estephania Rodriguez MD [address] [place] [address] PCP - General 04/21/07, Pharmacist [address]34 [place] [address] Pharmacist Pharmacy 12/10/21 [place] [address] [place] [address] Pharmacist Pharmacy 11/25/23 Vinita Felton, AUDITING SPECIALIST.MANAGER ENERGY [address] [place] [address] Parts Sales Manager Internal Medicine 08/15/24 Laila Nazario APRN.CENTRAL OFFICE INSTALLER [address] [place] [address] Parts Sales Manager Internal Medicine 08/15/24 Expert Witness Relationship Specialty Start Date End Date Estephania Rodriguez MD [address] [place] [address] PCP - General 04/21/07, Pharmacist [address]376 [place] [address] Pharmacist Pharmacy 12/10/21 Jake EdwardsA[place] [address] [place] [address] Pharmacist Pharmacy 11/25/23 Vinita Felton AUDITING SPECIALIST.MANAGER ENERGY [address] [place] [address] Parts Sales Manager Internal Medicine 08/15/24 Laila Nazario AUDITING SPECIALIST.CENTRAL OFFICE INSTALLER [address] [place] [address] Parts Sales Manager Internal Medicine 08/15/24 Expert Witness Relationship Specialty Start Date End Date Estephania Rodriguez MD [address] [place] [address] PCP - General 04/21/07, Pharmacist [address]58 [place] [address] Pharmacist Pharmacy 12/10/[address] [phone] Pharmacist Pharmacy 11/25/23 Vinita Felton, AUDITING SPECIALIST.MANAGER ENERGY [address] [place] [address] Parts Sales Manager Internal Medicine 08/15/24 Laila Nazario AUDITING SPECIALIST.CENTRAL OFFICE INSTALLER [address] [place] [address] Parts Sales Manager Internal Medicine 11/29/24 Expert Witness Relationship Specialty Start Date End Date Estephania Rodriguez MD [address] [place] [address] PCP - General 04/21/07, Pharmacist [address]9733 [place] [address] Pharmacist Pharmacy 12/10/[address] [phone] Pharmacist Pharmacy 11/25/23 Vinita Felton, AUDITING SPECIALIST.MANAGER ENERGY [address] [place] [address] Parts Sales Manager Internal Medicine 08/15/24 Laila Nazario, AUDITING SPECIALIST.CENTRAL OFFICE INSTALLER [address] [place] [address] Parts Sales Manager Internal Medicine 11/29/24 Expert Witness Relationship Specialty Start Date End Date Estephania Rodriguez MD [address] [place] [address] PCP - General 04/21/07, Pharmacist 43473 [place] [address] Pharmacist Pharmacy 12/10/[address] [phone] Pharmacist Pharmacy 11/25/23 Vinita Felton, AUDITING SPECIALIST.MANAGER ENERGY [address] [place] [address] Parts Sales Manager Internal Medicine 08/15/24 Laila Nazario, AUDITING SPECIALIST.CENTRAL OFFICE INSTALLER [address] [place] [address] Parts Sales Manager Internal Medicine 11/29/24 Expert Witness Relationship Specialty Start Date End Date Estephania Rodriguez MD [address] [place] [address] PCP - General 04/21/07, Pharmacist 25854 [place] [address] Pharmacist Pharmacy 12/10/[address] [address] Pharmacist Pharmacy 11/25/23 Vinita Felton, AUDITING SPECIALIST.MANAGER ENERGY [address] [place] [address] Parts Sales Manager Internal Medicine 08/15/24 Laila Nazario, AUDITING SPECIALIST.CENTRAL OFFICE INSTALLER [address] [place] [address] Parts Sales Manager Internal Medicine 11/29/24 Expert Witness Relationship Specialty Start Date End Date Estephania Rodriguez MD [address] [place] [address] PCP - General 04/21/07, Pharmacist 14604 [place] [address] Pharmacist Pharmacy 12/10/[address] [phone] Pharmacist Pharmacy 11/25/23 Vinita Felton, AUDITING SPECIALIST.MANAGER ENERGY [address] [place] [address] Parts Sales Manager Internal Medicine 08/15/24 Laila Nazario, AUDITING SPECIALIST.CENTRAL OFFICE INSTALLER [address] [place] [address] Parts Sales Manager Internal Medicine 11/29/24 Expert Witness Relationship Specialty Start Date End Date Estephania Rodriguez MD [address] [place] [address] PCP - General 04/21/07, Pharmacist [address]377 [place] [address] Pharmacist Pharmacy 12/10/[address] [address] Pharmacist Pharmacy 11/25/23 Laila Nazario APRN.CENTRAL OFFICE INSTALLER [address] [place] [address] Parts Sales Manager Internal Medicine 11/29/24 Vinita Felton, AUDITING SPECIALIST.MANAGER ENERGY [address] [place] [address] Parts Sales Manager Internal Medicine 01/25/25 Expert Witness Relationship Specialty Start Date End Date Estephania Rodriguez MD [address] [place] [address] PCP - General 04/21/07 13, Pharmacist [id number] [place] [address] Pharmacist Pharmacy 12/10/21 Jake Edwards, [facility] [address] [place] [phone] Pharmacist Pharmacy 11/25/23 Vinita Felton, AUDITING SPECIALIST.MANAGER ENERGY [address] [place] [address] Parts Sales Manager Internal Medicine 08/15/24 01/24/25 Laila Nzaario AUDITING SPECIALIST.CENTRAL OFFICE INSTALLER [address] [place] [address] Parts Sales Manager Internal Medicine 11/29/24 Vinita Felton, AUDITING SPECIALIST.MANAGER ENERGY [address] [place] [address] Parts Sales Manager Internal Medicine 01/25/25 Expert Witness Relationship Specialty Start Date End Date Estephania Rodriguez MD [address] [place] [address] PCP - General 04/21/07 13, Pharmacist [address] [place] [address] Pharmacist Pharmacy 12/10/21 Jake Edwards[place]lyss[place] [address] [place] [address] Pharmacist Pharmacy 11/25/23 Laila Nazario APRN.CENTRAL OFFICE INSTALLER [address] [place] [address] Parts Sales Manager Internal Medicine 11/29/24 Vinita Felton APRN.MANAGER ENERGY [address] [place] [address] Parts Sales Manager Internal Medicine 01/25/25 Expert Witness Relationship Specialty Start Date End Date Estephania Rodriguez MD [address] [place] [address] PCP - General 04/21/07, Pharmacist [address] [place] [address] Pharmacist Pharmacy 12/10/21 BovinaJake shaikhAlyss[place] [address] [place] [address] Pharmacist Pharmacy 11/25/23 Laila Nazario AUDITING SPECIALIST.CENTRAL OFFICE INSTALLER [address] [place] [address] Parts Sales Manager Internal Medicine 11/29/24 Vinita Felton APRN.MANAGER ENERGY [address] [place] [address] Parts Sales Manager Internal Medicine 01/25/25 Expert Witness Relationship Specialty Start Date End Date Estephania Rodriguez MD [address] [place] [address] PCP - General 04/21/07, Pharmacist [address] [place] [address] Pharmacist Pharmacy 12/10/21 [place] [address] [place] [phone] Pharmacist Pharmacy 11/25/23 Laila Nazario AUDITING SPECIALIST.CENTRAL OFFICE INSTALLER [address] [place] [address] Parts Sales Manager Internal Medicine 11/29/24 Vinita Felton APRN.MANAGER ENERGY [address] [place] [address] Parts Sales Manager Internal Medicine 01/25/25 Expert Witness Relationship Specialty Start Date End Date Estephania Rodriguez MD [address] [place] [address] PCP - General 04/21/07, Pharmacist [address] [place] [address] Pharmacist Pharmacy 12/10/21 Jake Edwards[place] [address] [place] [phone] Pharmacist Pharmacy 11/25/23 05/11/25 Laila Nazario AUDITING SPECIALIST.CENTRAL OFFICE INSTALLER [address] [place] [address] Parts Sales Manager Internal Medicine 11/29/24 Vinita Felton APRN.MANAGER ENERGY [address] [place] [address] [facility] Internal Medicine 01/25/25 Goals (unrecognized section and content) Goals may be documented in a n alternate sectionGoals may be documented in an alternate sectionGoals may be documented in an alternate section INFORMATION SOURCE (unrecogn ized section and content) DATE CREATED AUTHOR 01/09/2025 [facility] DATE CREATED AUTHOR AUTHOR'S AMBER JANNETTETALYA 07/11/2025 [facility] FOR RECORDS PERTAINING TO PATIENTS WHO ARE OR HAVE BEEN ENROLLED IN A CHEMICAL DEPENDENCY/SUBSTANCEABUSE PROGRAM, SOME INFORMATION MAY BE OMITTED. This clinical summary was aggregated from multiple sources. Caution should be exercised in using it in the provision of clinical care. This summary normalizes information from multiple sources, and as a consequence, information in this document may materially change the coding, format and clinical context of patient data. In addition, data may be omitted in some cases. CLINICAL DECISIONS SHOULD BE BASED ON THE PRIMARY CLINICAL RECORDS. [facility]. provides no warranty or guarantee of the accuracy or completeness of information in this document.
[2025-08-21] MEDS: Insulin Glargine-YFGN 100 UNIT/ML Pen 40 UNIT SC (21:00)
[2025-08-21 21:44] LABS: Troponin T High Sens 4 HR 11 ng/L (<=14)
[2025-08-22] VITALS (8 sets, daily range): BP systolic 108–130; BP diastolic 59–72; PULSE 73–100; RESP 16–22; TEMP 36.4–36.6; O2SAT 92–99
--- NOTE | 2025-08-22 05:55 | ECHOD_ITS ---
Reason For Study Reason For Study: CHF Procedure This was a 2D Doppler, Color Flow transthoracic echocardiogram. The patient is in an irregular rhythm. The patient was scanned supine. Exam performed portable in patient room. Left Ventricle Normal LV size. The left ventricular ejection fraction is 60 %. No regional wall motion abnormalities noted. Right Ventricle Normal RV size. Normal systolic function. Atria Normal left atrium. Normal right atrium. Mitral Valve Normal mitral valve. Mild focal mitral valve calcification, bileaflet. Tricuspid Valve Normal tricuspid valve. Aortic Valve Normal aortic valve. Pulmonic Valve Normal pulmonic valve. Great Vessels Normal aortic root. The pulmonary artery is normal size. Inferior vena cava collapse with respiration. Pericardium/Pleural No pericardial effusion. MMode/2D Measurements & Calculations LVIDd: 4.5 cm IVSd: 0.78 cm LVOT diam: 2.0 cm LVIDs: 2.9 cm LVPWd: 1.1 cm LVOT area: 3.2 cm2 RVDd: 3.2 cm FS: 35.0 % asc Aorta Diam: 3.1 cm LAV(MOD-bp): 66.4 ml LVAd ap4: 26.3 cm2 LAV(MOD-bp) Indexed: 30.6 ml/m2 LVLd ap4: 8.0 cm LAV(MOD-sp2): 61.2 ml EDV(MOD-sp4): 76.4 ml LAV(MOD-sp4): 69.1 ml EDV(sp4-el): 73.4 ml LVAs ap4: 13.3 cm2 LVLs ap4: 6.7 cm ESV(MOD-sp4): 27.2 ml ESV(sp4-el): 22.2 ml EF(MOD-sp4): 64.4 % EF(sp4-el): 69.8 % LVAd ap2: 24.9 cm2 SV(MOD-sp4): 49.2 ml LVLd ap2: 7.8 cm EDV(MOD-bp): 73.3 ml SI(MOD-sp4): 22.7 ml/m2 EDV(MOD-sp2): 68.1 ml ESV(MOD-bp): 25.4 ml EDV(sp2-el): 67.9 ml EF(MOD-bp): 65.3 % LVAs ap2: 13.1 cm2 LVLs ap2: 6.6 cm ESV(MOD-sp2): 23.9 ml ESV(sp2-el): 22.1 ml EF(MOD-sp2): 65.0 % SV(MOD-sp2): 44.2 ml SV(sp4-el): 51.2 ml LA A4 area: 23.7 cm2 SI(MOD-sp2): 20.4 ml/m2 LA dimension(2D): 4.3 cm RA A4 area: 14.4 cm2 TAPSE: 1.8 cm Time Measurements MV dec time: 0.20 sec Doppler Measurements & Calculations MV E max butch: 110.1 cm/sec Ao V2 max: 182.3 cm/sec MV A max butch: 106.2 cm/sec MV dec slope: 557.3 cm/sec2 Ao max P.3 mmHg MV E/A: 1.0 Ao V2 mean: 134.1 cm/sec Ao mean P.7 mmHg Ao V2 VTI: 37.5 cm AV (velocity ratio): 0.40 MALIK(I,D): 1.3 cm2 MALIK(V,D): 1.4 cm2 LV V1 max: 77.5 cm/sec SV(LVOT): 48.5 ml PA V2 max: 88.5 cm/sec LV V1 max P.4 mmHg LV V1 mean P.2 mmHg LV V1 mean: 50.8 cm/sec LV V1 VTI: 15.1 cm ECHO/Echo Complete Interpretation Summary The left ventricular ejection fraction is 60 %. Normal LV size. No regional wall motion abnormalities noted. Structurally normal valves. Ordering Physician: Wisam Jenkins Referring Physician: Nena Calvillo Performed By: Neda Chew RDCS
[2025-08-22 06:59] LABS: Hematocrit 37.5 % (37-47); Hemoglobin 11.7 g/dL (12.0-15.0); Immature Granulocytes Count 0.020 X10^3/uL (0.0-0.0); Mean Corp Hgb Conc 31.2 g/dL (32-36); Mean Corpuscular Volume 92.6 fL (81-99); Mean Platelet Vol. 10.5 fl (6.2-12.0); NRBC Flagged by Analyzer 0 % (0-5); Platelet Count 279 K/mm3 (150-450); RBC Distribution Width CV 14.1 % (11.6-14.6); RBC Distribution Width SD 47.8 fl (35.1-43.9); Red Blood Count 4.05 M/mm3 (4.2-5.4); White Blood Count 6.6 K/mm3 (4.4-11.0)
[2025-08-22 07:11] LABS: Prothrombin Time (Protime)PT. 30.1 SECONDS (11.7-14.9)
[2025-08-22 07:32] LABS: Anion Gap 10 (5-15); BUN 28 mg/dL (4-19); BUN/Creat Ratio 31.4 RATIO (10-20); Calcium,Total 9.1 mg/dL (7.6-11.0); Carbon Dioxide 25.6 mmol/L (21.0-32.0); Chloride 104 mmol/L (98-108); Estimated Creatinine Clearance 72.70 ml/min (50-250); Glucose 121 mg/dL (70-99); Potassium 3.8 mmol/L (3.3-5.1)
[2025-08-22] MEDS: 0.9% Saline Lock 10 ML Syringe IV (09:44)
--- NOTE | 2025-08-22 11:58 | CASEMGMT ---
JUANCARLOS HOFF Assessment Face to Face with patient for initial transition planning/care coordination assessment. JUANCARLOS HOFF introduced self and role at [facility], pt voices understanding. Pt is A&Ox4 and is resting comfortably in bed and is calm. Care providers, pharmacy, and demographics verified. Admitting dx: SOB, CHF LACE Strata: 2 PCP: Nena Calvillo Specialists: Denies Preferred Pharmacy: [facility] Insurance: [facility] A/B Prescription Benefit: Pt states that her PCP's office helps pay for her DM medication and supplies, but that she pays for all of her other rxs out of pocket. CM to follow. LNOK: Aundrea (Dtr) Living Arrangements: Pt lives with her Dtr, MARGOTH, and 3 grandchildren (2 adults) in a 2 story home with 4 steps to enter with handrails ADLs/IADLs: Pt states that her Dtr supports her at home Transportation: Dtr, GD DME: BGM with sufficient testing supplies. Pen needles for insulin shots. Scale for CHF. Rollator. Shower chair. Grab bars. Pt states that she f/u @ her PCP for INR monitoring. Pt is currently requiring additional oxygen and may qualify for home oxygen use. A verbal list of local in-network DME companies were provided to the pt at this time. Pt prefers [facility] HHC/SNF: Denies HH hx. Hx at [facility] TCU Pt?s goal: TBD Plan: TBD. Anticipate SNF vs Home with HHC. Follow for rx costs and O2 needs. At this time, the pt states that it is too early to tell what she will need or want at the time of DC. Collaborated with Dr. Flynn who gave this selling underwriter permission to order PT and OT evaluations. Current 6-Click score is 14. CM to follow. Report given to MANAGING EDITOR CM. Johnathon Marshall RN, CM
--- NOTE | 2025-08-22 13:29 | PN_ITS ---
Subjective Subjective Patient seen and examined with her nurse by her bedside. Her shortness of breath had improved. She still feels weak. She denied any dizziness, lightheadedness, palpitations, nausea, vomiting or any ohter symptoms. Review of systems is otherwise negative. She is on room air. Objective Data Objective Data Vital Signs: Vital Signs Temp Pulse Resp BP Pulse Ox O2 Del Method O2 Flow Rate 97.8 F 82 22 H 111/63 97 Room Air 2 08/22/25 09:40 08/22/25 09:44 08/22/25 09:40 08/22/25 09:40 08/22/25 09:40 08/22/25 09:52 08/22/25 03:44 Oxygen Flow Rate (L/min) 2 Oxygen Delivery Method Room Air Weight: 255 lb 8.252 oz Body Mass Index (BMI) 43.8 Intake & Output: Intake and Output for Last 24 Hours 08/20/25 08/21/25 08/22/25 23:59 23:59 23:59 Intake Total 240 / 240 Output Total 1000 / 1000 200 / 200 Balance -1000 / -1000 40 40 Lab / Micro Data 08/22/25 06:23 08/22/25 06:23 Labs: Laboratory Results - last 24 hr 08/21/25 13:13: Sodium 138, Potassium 4.4, Chloride 105, Carbon Dioxide 25.4, Anion Gap 8, BUN 29 H, Creatinine 0.75, Est GFR (MDRD) Non-Af 85, BUN/Creatinine Ratio 38.2 H, Glucose 145 H, Calcium 9.2, Troponin T High Sens 17 H, NT pro BNP II 1990 H 08/21/25 15:04: D-Dimer Quant (PE/DVT) 0.61 H* 08/21/25 15:28: Troponin T Hi Sens 2 Hr 7 08/21/25 20:53: Troponin T Hi Sens 4Hr 11 08/21/25 20:57: POC Glucose 96 08/22/25 06:23: WBC 6.6, RBC 4.05 L, Hgb 11.7 L, Hct 37.5, MCV 92.6, MCH 28.9, M CHC 31.2 L, RDW Std Deviation 47.8 H, RDW Coeff of Maritza 14.1, Plt Count 279, MPV 10.5, Immature Gran % (Auto) 0.300, Neut % (Auto) 48.8, Lymph % (Auto) 38.2, Page % (Auto) 8.6, Eos % (Auto) 3.5, Baso % (Auto) 0.6, Absolute Neuts (auto) 3.2, Absolute Lymphs (auto) 2.52, Nucleated RBC % 0, PT 30.1 H, INR 2.8, Sodium 140, Potassium 3.8, Chloride 104, Carbon Dioxide 25.6, Anion Gap 10, BUN 28 H, Creatinine 0.90, Estim Creat Clear Calc 72.70, Est GFR (MDRD) Non-Af 69, B UN/Creatinine Ratio 31.4 H, Glucose 121 H, Hemoglobin A1c 8.9 H, Calcium 9.1 08/22/25 06:30: POC Glucose 128 H 08/22/25 11:27: POC Glucose 182 H Micro: Microbiology 08/21/25 15:04 Mucosa - Nose SARS-CoV-2, Influenza & RSV (PCR) - Final Radiography Diagnostic Testing: Radiology Impression Chest X-Ray 08/21/25 14:35 IMPRESSION: The examination is limited by patient motion, particularly in the lateral view, AP portable technique, body habitus, and hypoinflation. Areas of airspace disease of the right lower lung and left mid to lower lung zones are seen, with differential diagnosis (given the aforementioned limitations) including atelectasis, pneumonitis, and atypical pulmonary edema. Given the appearance, findings are most suspicious for pneumonitis, at least of the left upper lobe. No pleural effusion or pneumothorax is seen. The cardiomediastinal silhouette is stable, without evidence of cardiomegaly. No interval osseous change is noted. Reading Location: [facility]-1 Chest CTA 08/21/25 18:10 IMPRESSION: Negative for pulmonary embolism. Bilateral pleural effusions. Abnormal patchy airspace disease bilaterally which is nonspecific Reading Location: [facility] Physical Exam Const alert, oriented x3 and no apparent distress Constitutional Narrative: class III obesity General Appearance: cooperative HEENT normocephalic, head/scalp atraumatic, moist oral mucous membranes and oropharynx normal Eyes EOMs intact bilaterally Neck supple and no JVD Lymph Lymphatic: no lymphadenopathy noted Resp Resp Narrative: mildly diminished breath sounds bibasally, no wheezes or crackles. On room air. Cardio regular rate, regular rhythm, S1 normal heart sound, S2 normal heart sound and no murmurs GI normal to inspection, nondistended, normoactive bowel sounds, soft to palpation and non-tender Extremity normal capillary refill and no calf tenderness Extremity Narrative: bilateral 1+ bipedal pitting edema. General Extremity: no tenderness to palpation of joints or extremities Skin General Skin Exam: no breakdown Neuro no focal motor deficits and no sensory deficits noted Motor Exam: general weakness Psych Appearance: appropriate Assessment & Plan Assessment/Plan (1) CHF (congestive heart failure): PLAN: Plan #Acute HFpEF * being diuresed with IV lasix 40mg bid * 2D echo: * CTA chest showed no evidence of PE and showed bilateral pleural effusion and abnormal patchy airspace disease bilaterally which is nonspecific. * monitor intake and output. * fluid restriction to 1500cc daily * #Atrial fibrillation: rate controlled. On coumadin. INR is therapeutic. #Type 2 diabetes:on metformin. on lantus 40 units qhs. ISS. Accuchecks ACHS. #History of CAD: on aspirin, plavix and statin. #Hyperlipidemia: on statin #Hypertension: on metoprolol. #Depression: on fluoxetine #DVT prophylaxis: on coumadin. INR is therapeutic. Code status: full code. Charges/Coding Visit Charges Inpatient E&M: 92537 Subs Hosp L2
[2025-08-22] MEDS: Warfarin (PBKC) 2.5 MG Tablet PO (16:31)
[2025-08-22] MEDS: Insulin Glargine-YFGN 100 UNIT/ML Pen 40 UNIT SC (22:03)
[2025-08-23] VITALS (7 sets, daily range): BP systolic 108–122; BP diastolic 60–77; PULSE 80–85; RESP 16–18; TEMP 36.4–36.8; O2SAT 85–96
[2025-08-23 09:07] LABS: Hematocrit 38.0 % (37-47); Hemoglobin 12.0 g/dL (12.0-15.0); Immature Granulocytes Count 0.020 X10^3/uL (0.0-0.0); Mean Corp Hgb Conc 31.6 g/dL (32-36); Mean Corpuscular Volume 92.2 fL (81-99); Mean Platelet Vol. 10.2 fl (6.2-12.0); NRBC Flagged by Analyzer 0 % (0-5); Platelet Count 298 K/mm3 (150-450); RBC Distribution Width CV 14.2 % (11.6-14.6); RBC Distribution Width SD 47.6 fl (35.1-43.9); Red Blood Count 4.12 M/mm3 (4.2-5.4); White Blood Count 5.8 K/mm3 (4.4-11.0)
[2025-08-23 09:43] LABS: Anion Gap 9 (5-15); BUN 28 mg/dL (4-19); BUN/Creat Ratio 34.0 RATIO (10-20); Calcium,Total 9.0 mg/dL (7.6-11.0); Carbon Dioxide 27.7 mmol/L (21.0-32.0); Chloride 102 mmol/L (98-108); Estimated Creatinine Clearance 78.84 ml/min (50-250); Glucose 100 mg/dL (70-99); Potassium 3.6 mmol/L (3.3-5.1)
--- NOTE | 2025-08-23 11:16 | DS.PCM_ITS ---
Providers Date of Admission: 08/21/25 Date of Discharge: 08/23/25 Primary Care Physician: Dr. Nena Calvillo MD Reason For Visit: SOB Diagnosis Discharge Diagnosis (1) CHF (congestive heart failure): Status: Acute Code(s): I50.9 - Heart failure, unspecified Plan #Acute HFpEF * being diuresed with IV lasix 40mg bid * 2D echo: * CTA chest showed no evidence of PE and showed bilateral pleural effusion and abnormal patchy airspace disease bilaterally which is nonspecific. * monitor intake and output. * fluid restriction to 1500cc daily * #Atrial fibrillation: rate controlled. On coumadin. INR is therapeutic. #Type 2 diabetes:on metformin. on lantus 40 units qhs. ISS. Accuchecks ACHS. #History of CAD: on aspirin, plavix and statin. #Hyperlipidemia: on statin #Hypertension: on metoprolol. #Depression: on fluoxetine #DVT prophylaxis: on coumadin. INR is therapeutic. Code status: full code. Medications at Discharge Home Medications clopidogrel 75 mg tablet 75 mg PO DAILY Antiplatelet 07/10/21 metformin 500 mg tablet,extended release 24 hr 1,000 mg PO BIDCM Diabetes 07/10/21 metoprolol tartrate 50 mg tablet 50 mg PO BID BP 30 days #60 tabs 07/24/21 polysaccharide iron complex 150 mg iron capsule (iFerex 150) 150 mg PO DAILY supplement 08/15/21 rosuvastatin 5 mg tablet 5 mg PO DAILY cholesterol 08/15/21 warfarin 2.5 mg tablet 2.5 mg PO SUMOTUWEFRSA blood thinner 08/15/21 insulin glargine 100 unit/mL (3 mL) subcutaneous pen (Lantus Solostar U-100 Insulin) 40 unit subcut QHS Diabetes 04/18/22 fluoxetine 40 mg capsule 40 mg PO DAILY mental health 02/25/23 insulin lispro 100 unit/mL subcutaneous pen (Humalog KwikPen (U-100) Insulin) 6 unit subcut DAILY diabetes 08/21/25 warfarin 2.5 mg tablet 1.25 mg PO TH blood thinner 08/21/25 furosemide 40 mg tablet (Lasix) 40 mg PO BID #60 tabs 08/23/25 potassium chloride 20 mEq tablet,extended release(part/cryst) (Klor-Con M) 20 meq PO BID #60 tabs 08/23/25 Hospital Course Operations None Procedures 2-D Echocardiogram Summary of Care Provided Minutes Spent on Discharge: 42 Hospital Course: Patient is a 70-year-old female with past medical history as outlined was admitted through the ED on 08/21/2025 with complaint of shortness of breath and palpitations. She said her palpitations worsen with exertion and relieved with rest and she also had progressive shortness of breath. She does not have any history of heart failure. proBNP was elevated at 1989. D-dimer was 0.6 and CTA of the chest was negative for any evidence of PE but showed small left and moderate right pleural effusion. She was admitted and managed for acute exacerbation of new onset heart failure. She was diuresed with IV Lasix. 2D echo done showed EF of 60% with no regional wall motion abnormalities and normal valves. Her shortness of breath improved and she was weaned off of oxygen. She was discharged on p.o. Lasix 40 mg twice daily with potassium supplementation. She is follow-up with her primary care doctor within 1 to 2 weeks. Patient seen and examined prior to discharge. She had no complaints and felt well. She had an uneventful night. Review of systems otherwise negative. Labs and vitals reviewed. Medication reviewed and reconciled. Physical Exam Const alert, oriented x3 and no apparent distress Constitutional Narrative: class III obesity General Appearance: cooperative, comfortable, well kempt and well developed HEENT normocephalic, head/scalp atraumatic, hearing grossly normal bilaterally, moist oral mucous membranes and oropharynx normal Mouth: oral and palatal mucosa normal Eyes PERRL and EOMs intact bilaterally Neck no lymphadenopathy, supple and no JVD Lymph Lymphatic: no lymphadenopathy noted and lymphedema moderate Resp normal respiratory effort, normal air movement and clear to auscultation bilaterally Resp Narrative: mildly diminished breath sounds bibasally, no wheezes or crackles. On room air. Auscultation: Negative for rales, rhonchi or wheezes Cardio regular rate, regular rhythm, S1 normal heart sound, S2 normal heart sound and no murmurs GI normal to inspection, nondistended, normoactive bowel sounds, soft to palpation and non-tender Extremity normal capillary refill and no calf tenderness Extremity Narrative: bilateral 1+ bipedal pitting edema. General Extremity: edema bilateral lower extremity Details: moderate Skin General Skin Exam: no breakdown Neuro oriented x3, CN's II-XII intact bilaterally, no focal motor deficits and no sensory deficits noted Sensorium / Orientation: awake and alert Motor Exam: general weakness Psych cooperative and affect normal Appearance: appropriate Weight / BMI Weight Weight: 255 lb 8.252 oz Body Mass Index (BMI) 43.8 ABG / Lab / Microbiology Data 08/23/25 08:44 08/23/25 08:54 Laboratory: Laboratory Results - last 24 hr 08/22/25 16:29: POC Glucose 162 H 08/22/25 22:02: POC Glucose 210 H 08/23/25 06:46: POC Glucose 109 H 08/23/25 08:44: WBC 5.8, RBC 4.12 L, Hgb 12.0, Hct 38.0, MCV 92.2, MCH 29.1, M CHC 31.6 L, RDW Std Deviation 47.6 H, RDW Coeff of Maritza 14.2, Plt Count 298, MPV 10.2, Immature Gran % (Auto) 0.300, Neut % (Auto) 46.6 L, Lymph % (Auto) 39.6, Petroleum % (Auto) 8.1, Eos % (Auto) 4.5, Baso % (Auto) 0.9, Absolute Neuts (auto) 2.7, Absolute Lymphs (auto) 2.29, Nucleated RBC % 0 08/23/25 08:54: Sodium 139, Potassium 3.6, Chloride 102, Carbon Dioxide 27.7, Anion Gap 9, BUN 28 H, Creatinine 0.83, Estim Creat Clear Calc 78.84, Est GFR (MDRD) Non-Af 76, BUN/Creatinine Ratio 34.0 H, Glucose 100 H, Calcium 9.0 08/23/25 11:09: POC Glucose 186 H Microbiology: Microbiology 08/21/25 15:04 Mucosa - Nose SARS-CoV-2, Influenza & RSV (PCR) - Final Radiography Diagnostic Testing: Radiology Impression Echocardiogram 08/22/25 05:55 Interpretation Summary The left ventricular ejection fraction is 60 %. Normal LV size. No regional wall motion abnormalities noted. Structurally normal valves. Ordering Physician: Wisam Jenkins Referring Physician: Nena Calvillo Performed By: Neda Chew RDCS D/C Instructions Discharge Activity: Return to Normal Activity Weight Bearing Status: Weight bearing as tolerated Call your doctor if you observe: Fever of 101 or Higher, Shortness of breath, Swelling in the ankles, Increased palpitations (irregular heartbeat) and Calf discomfort DC O2, CPAP, BIPAP Needs Home O2 Discharge instructions: No Meaningful Use Info Meaningful Use Meaningful Use Diagnoses (Choose all that apply): CHF CHF VICTOR MANUEL/ARB ordered at discharge?: No Reason VICTOR MANUEL/ARB not ordered?: Not indicated Documented LVEF (%): 60 Discharge Plan Admission Admit Date/Time: 08/21/25 19:50 Primary Reason for Your Visit: acute heart failure Attending Provider: Inga Flynn Primary Care Provider: Nena Calvillo Consulting Providers: Wisam Jenkins Instructions Patient Instructions: Coping with Heart Failure, ED Heart Failure, Congestive (CHF) Discharge Orders/Prescriptions Prescriptions: New furosemide [Lasix] 40 mg tablet 40 mg PO BID Qty: 60 2RF potassium chloride [Klor-Con M20] 20 mEq tablet,ER particles/crystals 20 meq PO BID Qty: 60 0RF Continued warfarin 2.5 mg tablet 2.5 mg PO SUMOTUWEFRSA polysaccharide iron complex [iFerex 150] 150 mg iron capsule 150 mg PO DAILY rosuvastatin 5 mg tablet 5 mg PO DAILY insulin glargine [Lantus Solostar U-100 Insulin] 100 unit/mL (3 mL) insulin pen 40 unit subcut QHS fluoxetine 40 mg capsule 40 mg PO DAILY clopidogrel 75 mg tablet 75 mg PO DAILY metformin 500 mg tablet extended release 24 hr 1,000 mg PO BIDCM metoprolol tartrate 50 mg tablet 50 mg PO BID 30 Days Qty: 60 0RF warfarin 2.5 mg tablet 1.25 mg PO TH insulin lispro [Humalog KwikPen Insulin] 100 unit/mL insulin pen 6 unit subcut DAILY Patient Comments: AM Referrals / Follow Up: Nena Calvillo MD [Primary Care Provider, Internal Medicine] - 08/28/25 9:20 am Referral Note: APPOINTMENT WITH [facility]. PLEASE ARRIVE AT 9:05 FOR CHECK IN Disposition Disposition (needs filled in before D/C Order can be placed): Home, Self Care Charges/Coding Visit Charges Inpatient E&M: 02645 Disch Hosp >30min
--- NOTE | 2025-08-23 11:16 | DCINST_ITS ---
Discharge Instructions DC O2, CPAP, BIPAP needs Home O2 Discharge instructions: No Dressing / Incision Discharge Activity: Return to Normal Activity Weight Bearing Status: Weight bearing as tolerated Dressing / Incision Call your doctor if you observe: Fever of 101 or Higher, Shortness of breath, Swelling in the ankles, Increased palpitations (irregular heartbeat) and Calf discomfort Follow Up Care Test Results: Test results from this visit will be discussed in further detail at your follow- up appointment, if applicable. Discharge Plan Admission Admit Date/Time: 08/21/25 19:50 Primary Reason for Your Visit: acute heart failure Attending Provider: Inga Flynn Primary Care Provider: Nena Calvillo Consulting Providers: Wisam Jenkins Instructions Patient Instructions: Coping with Heart Failure, ED Heart Failure, Congestive (CHF) Discharge Orders/Prescriptions Prescriptions: New furosemide [Lasix] 40 mg tablet 40 mg PO BID Qty: 60 2RF potassium chloride [Klor-Con M20] 20 mEq tablet,ER particles/crystals 20 meq PO BID Qty: 60 0RF Continued warfarin 2.5 mg tablet 2.5 mg PO SUMOTUWEFRSA polysaccharide iron complex [iFerex 150] 150 mg iron capsule 150 mg PO DAILY rosuvastatin 5 mg tablet 5 mg PO DAILY insulin glargine [Lantus Solostar U-100 Insulin] 100 unit/mL (3 mL) insulin pen 40 unit subcut QHS fluoxetine 40 mg capsule 40 mg PO DAILY clopidogrel 75 mg tablet 75 mg PO DAILY metformin 500 mg tablet extended release 24 hr 1,000 mg PO BIDCM metoprolol tartrate 50 mg tablet 50 mg PO BID 30 Days Qty: 60 0RF warfarin 2.5 mg tablet 1.25 mg PO TH insulin lispro [Humalog KwikPen Insulin] 100 unit/mL insulin pen 6 unit subcut DAILY Patient Comments: AM Referrals / Follow Up: Nena Calvillo MD [Primary Care Provider, Internal Medicine] - Within 1 Week Disposition Disposition (needs filled in before D/C Order can be placed): Home, Self Care
--- NOTE | 2025-08-23 13:02 | CASEMGMT ---
Patient has order for discharge. Patient requires oxygen at discharge, script received and referral sent to mikala Krueger provider, tank provided from [facility]. JUANCARLOS HOFF in to patient's room to discuss needs at discharge. Patient denies needs or help at discharge. JUANCARLOS HOFF updated patient regarding home oxygen at discharge, patient voiced understanding. Patient had no further questions or concerns. JUANCARLOS HOFF updated discharge plan.
--- NOTE | 2025-08-23 13:55 | PHA.DC_ITS ---
Pharmacy [facility] Counseling Pharmacy Service has performed discharge medication reconciliation and counseling for this patient. 1. FUROSEMIDE 40MG PO BID 2. POTASSIUM CHLORIDE 20MEQ PO BIDCM The patient's discharge medication list was reviewed for discrepancies and discrepancies were resolved. The patient was counseled on the following discharge medications and changes in medications for homegoing were reviewed. The Reason for Use, instructions for use, and potential side effects were reviewed for all new medications. The patient's questions regarding all of their medications were answered. The patient was able to verbally demonstrate an understanding of their discharge medications. Medications at Discharge Home Medications clopidogrel 75 mg tablet 75 mg PO DAILY Antiplatelet 07/10/21 metformin 500 mg tablet,extended release 24 hr 1,000 mg PO BIDCM Diabetes 07/10/21 metoprolol tartrate 50 mg tablet 50 mg PO BID BP 30 days #60 tabs 07/24/21 polysaccharide iron complex 150 mg iron capsule (iFerex 150) 150 mg PO DAILY supplement 08/15/21 rosuvastatin 5 mg tablet 5 mg PO DAILY cholesterol 08/15/21 warfarin 2.5 mg tablet 2.5 mg PO SUMOTUWEFRSA blood thinner 08/15/21 insulin glargine 100 unit/mL (3 mL) subcutaneous pen (Lantus Solostar U-100 Insulin) 40 unit subcut QHS Diabetes 04/18/22 fluoxetine 40 mg capsule 40 mg PO DAILY mental health 02/25/23 insulin lispro 100 unit/mL subcutaneous pen (Humalog KwikPen (U-100) Insulin) 6 unit subcut DAILY diabetes 08/21/25 warfarin 2.5 mg tablet 1.25 mg PO TH blood thinner 08/21/25 furosemide 40 mg tablet (Lasix) 40 mg PO BID #60 tabs 08/23/25 potassium chloride 20 mEq tablet,extended release(part/cryst) (Klor-Con M) 20 meq PO BID #60 tabs 08/23/25
== END 2025-08-23 15:52 | disposition home or self-care (01) | DRG 291 ==
LOC: ED 17:39 → PCU 20:08
PROVIDERS: Surgery; Admitting Provider Family Medicine; Emergency Provider Emergency Medicine; PCP Internal Medicine; Visit Provider Student in an Organized Health Care Education/Training Program
DX: I11.0 Hypertensive heart disease with heart failure (principal); I50.31 Acute diastolic (congestive) heart failure; J90 Pleural effusion, not elsewhere classified; Z68.41 Body mass index [BMI] 40.0-44.9, adult; Z79.01 Long term (current) use of anticoagulants; E11.42 Type 2 diabetes mellitus with diabetic polyneuropathy; F32.A Depression, unspecified; I48.0 Paroxysmal atrial fibrillation; I25.10 Atherosclerotic heart disease of native coronary artery without angina pectoris; E78.5 Hyperlipidemia, unspecified; E66.813 Obesity, class 3; Z87.891 Personal history of nicotine dependence; Z95.5 Presence of coronary angioplasty implant and graft; Z79.84 Long term (current) use of oral hypoglycemic drugs; Z86.16 Personal history of COVID-19
CPT/HCPCS: 36415; 71046; 71275; 80048; 82962; 83036; 83880; 84484; 85025; 85379; 85610; 87631; 93005; 93306; 94760; 97162; 97802; 99285; Q9967; A4216; J1938